=== PATIENT | male | born 1945 | race Caucasian/White ===

== ENCOUNTER 2020-06-20 09:27 | Outpatient (REF) | payer MEDICARE, MEDICAID, SELFPAY ==
--- NOTE | 2020-06-20 09:34 | XR_ITS ---
EXAMINATION: XR SHOULDER, RIGHT CLINICAL INFORMATION: Pain right shoulder. COMPARISON: None TECHNIQUE: 3 views of the right shoulder. FINDINGS: There is loss of joint space within the head of humerus and the acromion with lateral acromial spurring. Also visualized is calcification seen superior to the head of humerus likely calcific tendinitis. There is no visible acute fracture, dislocation or subluxation seen. There is mild spurring along the head of the humerus. No visible acute fracture, dislocation or lytic process seen. XR/XR shoulder RT min 2V IMPRESSION: Mild degenerative arthritic changes right shoulder. Suspect calcific tendinitis. Moderate lateral acromial in superior humeral spurring likely resulting in impingement and partial tear of rotator cuff.
== END 2020-06-20 09:28 | disposition home or self-care (01) ==
LOC: HO.XRAY 09:27
PROVIDERS: PCP Family Medicine; Referring Provider Family Medicine; Visit Provider Orthopaedic Surgery
DX: M25.511 Pain in right shoulder (principal); M75.101 Unspecified rotator cuff tear or rupture of right shoulder, not specified as traumatic; M12.811 Other specific arthropathies, not elsewhere classified, right shoulder
CPT/HCPCS: 20610; 73030; 99204; 99212; J1040

== ENCOUNTER → 2020-09-19 10:40 | Outpatient (BNVA) | payer MEDICARE, MEDICAID, SELFPAY | PROVIDERS: PCP Family Medicine; Visit Provider Orthopaedic Surgery | DX: M75.101 Unspecified rotator cuff tear or rupture of right shoulder, not specified as traumatic (principal); M12.811 Other specific arthropathies, not elsewhere classified, right shoulder | CPT/HCPCS: 20610; 99212; J1040 ==

== ENCOUNTER 2020-11-08 12:52 | Outpatient (REF) | payer MEDICARE, MEDICAID, SELFPAY ==
[2020-11-08 14:06] LABS: MANUAL DIFF FLAG NO
[2020-11-08 14:11] LABS: Basophils Absolute Auto 0.1 X10*3/uL (0.0-0.2); Basophils Percent Auto 0.9 % (0-2); Eosinophils Absolute Auto 0.2 X10*3/uL (0.0-0.4); Eosinophils Percent Auto 3.1 % (0-4); Hematocrit 34.7 % (42-52); Hemoglobin 11.3 g/dl (14.0-18.0); Imm Gran Abs Auto 0.03 X10*3/uL (0.00-0.03); Imm Gran Pct Auto 0.4 % (0.0-0.4); Lymphocytes Absolute Auto 1.1 X10*3/uL (1.2-4.9); Mean Corpuscular HGB Conc 32.6 g/dl (31.0-36.0); Mean Corpuscular Hemoglobin 35.1 pg (27.0-33.0); Mean Corpuscular Volume 107.8 fL (80-98); Mean Platelet Volume 10.9 fL (9.4-12.4); Monocytes Absolute Auto 0.5 X10*3/uL (0.1-1.2); Monocytes Percent Auto 6.7 % (2-11); Neutrophils Absolute Auto 4.9 X10*3/uL (2.0-8.3); Neutrophils Percent Auto 72.9 % (45-73); Platelet Count 211 X10*3/uL (160-400); Red Blood Count 3.22 X10*6/uL (4.60-5.80); Red Cell Distribution Width 15.6 % (11.0-16.0); White Blood Count 6.7 X10*3/uL (4.8-10.8)
[2020-11-08 14:32] LABS: Alanine Aminotransferase 19 U/L (0-40); Anion Gap 13 (12-20); Blood Urea Nitrogen 22 mg/dL (9-16); Carbon Dioxide 33 mmol/L (22-29); Chloride 99 mmol/L (96-108); Estimated Glomerular Filt Rate 53; Potassium 4.9 mmol/L (3.3-5.1); Sodium 140 mmol/L (135-145)
== END 2020-11-08 12:53 | disposition home or self-care (01) ==
LOC: HO.10HDL 12:52
PROVIDERS: Absent Provider Internal Medicine Medical Oncology; Visit Provider Student in an Organized Health Care Education/Training Program
DX: D64.9 Anemia, unspecified (principal); I10 Essential (primary) hypertension; E78.00 Pure hypercholesterolemia, unspecified; Z79.899 Other long term (current) drug therapy
CPT/HCPCS: 20610; 36415; 80051; 82550; 82565; 84460; 84520; 85025; J1040; Q3014

== ENCOUNTER 2021-06-20 10:03 | Outpatient (REF) | payer MEDICARE, OTHER, SELFPAY ==
[2021-06-20 13:57] LABS: MANUAL DIFF FLAG NO
[2021-06-20 14:19] LABS: Basophils Absolute Auto 0.1 X10*3/uL (0.0-0.2); Basophils Percent Auto 0.8 % (0-2); Eosinophils Percent Auto 0.7 % (0-4); Hemoglobin 11.1 g/dl (14.0-18.0); Imm Gran Abs Auto 0.05 X10*3/uL (0.00-0.03); Imm Gran Pct Auto 0.8 % (0.0-0.4); Lymphocytes Absolute Auto 0.8 X10*3/uL (1.2-4.9); Lymphocytes Percent Auto 13.2 % (20-40); Mean Corpuscular HGB Conc 32.6 g/dl (31.0-36.0); Mean Corpuscular Hemoglobin 34.9 pg (27.0-33.0); Mean Corpuscular Volume 106.9 fL (80-98); Mean Platelet Volume 11.4 fL (9.4-12.4); Monocytes Absolute Auto 0.3 X10*3/uL (0.1-1.2); Monocytes Percent Auto 5.3 % (2-11); Neutrophils Absolute Auto 4.8 X10*3/uL (2.0-8.3); Neutrophils Percent Auto 79.2 % (45-73); Platelet Count 203 X10*3/uL (160-400); Red Blood Count 3.18 X10*6/uL (4.60-5.80); Red Cell Distribution Width 15.9 % (11.0-16.0); White Blood Count 6.1 X10*3/uL (4.8-10.8)
[2021-06-20 14:28] LABS: Alanine Aminotransferase 20 U/L (0-40); Anion Gap 13 (12-20); Aspartate Amino Transferase 19 U/L (5-37); Blood Urea Nitrogen 13 mg/dL (9-16); Carbon Dioxide 29 mmol/L (22-29); Chloride 104 mmol/L (96-108); Estimated Glomerular Filt Rate > 60; Potassium 4.6 mmol/L (3.3-5.1); Sodium 141 mmol/L (135-145)
[2021-06-20 14:48] LABS: Prostate Specific Antigen Scr 0.78 ng/mL (<0.05-4.0)
== END 2021-06-20 10:04 | disposition home or self-care (01) ==
LOC: HO.10HDL 10:03
PROVIDERS: Absent Provider Internal Medicine Medical Oncology; Visit Provider Family Medicine
DX: Z12.5 Encounter for screening for malignant neoplasm of prostate (principal); E78.00 Pure hypercholesterolemia, unspecified; D64.9 Anemia, unspecified; R35.1 Nocturia; Z79.899 Other long term (current) drug therapy
CPT/HCPCS: 36415; 80051; 82550; 82565; 84153; 84450; 84460; 84520; 85025

== ENCOUNTER → 2021-08-28 10:11 | Outpatient (BNVA) | payer MEDICARE, OTHER, SELFPAY | PROVIDERS: PCP Family Medicine; Visit Provider Internal Medicine Pulmonary Disease | DX: J44.9 Chronic obstructive pulmonary disease, unspecified (principal); R91.8 Other nonspecific abnormal finding of lung field; Z99.81 Dependence on supplemental oxygen | CPT/HCPCS: 99212 ==

== ENCOUNTER 2021-09-18 09:59 | Outpatient (REF) | payer MEDICARE, OTHER, SELFPAY ==
--- NOTE | ~2021-09-18 | CT_ITS ---
EXAMINATION: CT CHEST WITHOUT CONTRAST CLINICAL INFORMATION: Other nonspecific abnormal finding of lung field. COMPARISON: Previous CT January 2018 and previous chest x-ray June 2019. TECHNIQUE: Multidetector volumetric CT imaging of the chest was done. Axial MIP volume rendering provided. Sagittal and coronal reformatted images were obtained. This CT examination was performed using dose optimization techniques as appropriate, variously including the following: *Automated exposure control. *Adjustment of mA and/or kV according to patient size (this includes techniques or standardized protocols for targeted exams where dose is matched to indication/reason for exam; i.e. extremities or head). *Use of iterative reconstruction technique. DLP: 174 mGy-cm FINDINGS: LUNGS: There is evidence of emphysema. There is bilateral lower lobe bronchiectasis. This is increased from previous exam. There are patchy areas of airways disease with bronchial wall thickening, increased peribronchial attenuation and peribronchial nodules or tree-in-bud appearance. This is greatest in the bilateral lower lobes. This appears increased from previous exam. There is also increasing bilateral lower lobe bronchiectasis. MEDIASTINUM: There are small mediastinal lymph nodes. No enlarged lymph nodes are seen. The heart does not appear enlarged. There is coronary artery calcification. No pericardial effusion. The thoracic aorta is normal in caliber. The visualized thyroid gland is normal. PLEURA: There is no pleural effusion. No pleural mass or thickening. AXILLA: No lymphadenopathy. UPPER ABDOMEN: Unremarkable. OSSEOUS STRUCTURES: There are degenerative changes of the spine. CT/CT chest wo con IMPRESSION: 1. Emphysema. 2. Increasing bronchiectasis and airways disease, greatest in the lower lobes. Coronary artery calcification. Fleischner guidelines were followed.
== END 2021-09-18 10:00 | disposition home or self-care (01) ==
LOC: HO.CT 09:59
PROVIDERS: PCP Family Medicine; Visit Provider Internal Medicine Pulmonary Disease
DX: R91.8 Other nonspecific abnormal finding of lung field (principal)
CPT/HCPCS: 71250

== ENCOUNTER 2021-10-04 10:00 | Outpatient (REF) | payer MEDICARE, OTHER, SELFPAY ==
--- NOTE | 2021-10-04 11:39 | PFT_ITS ---
FLOWS: FEV1 56% of predicted at 1.88 L. FVC 81% of predicted at 3.76 L. FEV1 to FVC ratio of 0.50. No bronchodilator testing was performed as patient has used albuterol approximately 2 hours prior to testing. LUNG VOLUMES: Total lung capacity 97% of predicted at 7.25 L. Residual volume 126% of predicted at 3.35 L. Slow vital capacity 81% of predicted at 3.90 L. Expiratory reserve volume 83% of predicted at 1.14 L. Diffusion capacity is moderately decreased. IMPRESSION: Moderate obstructive ventilatory defect. Bronchodilator testing was not performed. Increased residual volume suggests air trapping. Decreased diffusion capacity suggests emphysema. Miguel Majano MD AP/MODL / [id number]
== END 2021-10-04 10:01 | disposition home or self-care (01) ==
LOC: HO.RESP 10:00
PROVIDERS: PCP Family Medicine; Visit Provider Internal Medicine Pulmonary Disease
DX: J44.9 Chronic obstructive pulmonary disease, unspecified (principal)
CPT/HCPCS: 94010; 94727; 94729

== ENCOUNTER → 2021-11-01 10:07 | Outpatient (BNVA) | payer MEDICARE, OTHER, SELFPAY | PROVIDERS: PCP Family Medicine; Visit Provider Internal Medicine Pulmonary Disease | DX: J44.9 Chronic obstructive pulmonary disease, unspecified (principal); R91.8 Other nonspecific abnormal finding of lung field; Z99.81 Dependence on supplemental oxygen | CPT/HCPCS: 99212 ==

== ENCOUNTER → 2021-12-07 09:22 | Outpatient (BNVA) | payer MEDICARE, OTHER, SELFPAY | PROVIDERS: PCP Family Medicine; Visit Provider Orthopaedic Surgery | DX: M19.012 Primary osteoarthritis, left shoulder (principal); M19.011 Primary osteoarthritis, right shoulder | CPT/HCPCS: 20610; 99212; J1100 ==

== ENCOUNTER 2021-12-26 11:02 | Outpatient (REF) | payer MEDICARE, OTHER, SELFPAY ==
[2021-12-26 14:01] LABS: Alanine Aminotransferase 26 U/L (0-40); Anion Gap 13 (12-20); Aspartate Amino Transferase 21 U/L (5-37); Blood Urea Nitrogen 17 mg/dL (9-16); Carbon Dioxide 27 mmol/L (22-29); Chloride 102 mmol/L (96-108); Estimated Glomerular Filt Rate 58; Potassium 4.4 mmol/L (3.3-5.1); Sodium 138 mmol/L (135-145)
== END 2021-12-26 11:03 | disposition home or self-care (01) ==
LOC: HO.HMGCLDS 11:02
PROVIDERS: PCP Family Medicine; Visit Provider Family Medicine
DX: I10 Essential (primary) hypertension (principal); K75.81 Nonalcoholic steatohepatitis (NASH)
CPT/HCPCS: 36415; 80051; 82565; 84450; 84460; 84520

== ENCOUNTER 2022-01-02 08:31 | Outpatient (REF) | payer MEDICARE, OTHER, SELFPAY ==
--- NOTE | ~2022-01-02 | XR_ITS ---
EXAMINATION: XR HAND, LEFT CLINICAL INFORMATION: Pain COMPARISON: None TECHNIQUE: PA, lateral, and oblique views of the left hand. FINDINGS: Degenerative osteoarthritic changes involving primarily first carpometacarpal joint, also involving the first interphalangeal joint, proximal and distal interphalangeal joints of all fingers relatively sparing the metacarpophalangeal joints. No evidence of erosions. XR/XR hand LT min 3V IMPRESSION: Early advanced degenerative osteoarthritis primarily involving the first carpometacarpal.
== END 2022-01-02 08:32 | disposition home or self-care (01) ==
LOC: HO.HOSX 08:31
PROVIDERS: Visit Provider Orthopaedic Surgery
DX: M18.12 Unilateral primary osteoarthritis of first carpometacarpal joint, left hand (principal)
CPT/HCPCS: 20605; 73130; 99202; J1020

== ENCOUNTER → 2022-01-15 12:56 | Outpatient (REF) | payer MEDICARE, OTHER, SELFPAY ==
--- NOTE | 2022-01-15 13:00 | CA_ITS ---
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 The calculated ejection fraction is 58% by biplane method. - Moderately increased right ventricular cavity size. - At most mild aortic stenosis. - Mild pulmonary hypertension is present. Findings Left Ventricle Normal left ventricular cavity size. There is normal left ventricular wall thickness. The left ventricular systolic function is normal. The calculated ejection fraction is 58% by biplane method. There is no evidence of regional wall motion abnormalities. Diastolic function is normal for age. Right Ventricle Moderately increased right ventricular cavity size. There is normal right ventricular systolic function. Atria Both atria are normal in size. Aortic Valve The aortic valve was not well visualized. There is mild calcification of the aortic valve. The mean gradient is 9 mmHg. The aortic valve area is 1.91 cm2. There is no aortic valve regurgitation. At most mild aortic stenosis. Mitral Valve The mitral valve appears normal. There is trace mitral valve regurgitation. There is no mitral valve stenosis. Pulmonic Valve The pulmonic valve was not well visualized. Tricuspid Valve There is trace tricuspid valve regurgitation. The right ventricular systolic pressure is 36 mmHg. Mild pulmonary hypertension is present. Great Vessels The aorta was not well visualized. The sinuses of valsalva is normal in size. Small plaque is seen in the sino tubular ridge. Venous The inferior vena cava is mildly dilated and collapses greater than 50% with inspiration. Pericardium/Pleural There is no evidence of pericardial effusion. Prior Study Comparison Changes noted compared to prior study dated: 06/21/2015. Slight increase in aortic valve gradients. Increased right ventricular size. Mild pulmonary hypertension now seen. Measurements 2D Linear Measurements IVSd: 0.98 0.6-0.9/0.6-1.0 cm LVIDd: 5.84 3.9-5.3/4.2-5.9 cm LVIDd Index: 2.65 2.4-3.2/2.2-3.1 cm/m2 LVIDs: 4.60 2.0-3.6 cm LVPWd: 0.96 0.7-1.1 cm LA Diam: 3.80 2.7-3.8/3.0-4.0 cm LAIDs Index: 1.73 1.5-2.3 cm/m2 LV Mass: 282.41 67-162/88-224 g LV Mass Index: 128.37 43-95/49-115 g/m2 LVOT Diam: 2.00 3.0+(-)1.3 cm 2D Systolic Function EF 4C: 58.70 >55% EF 2C: 58.00 >55% EF BiP: 57.90 >55% Mitral Valve MV Pk E: 0.69 MV PK A: 0.66 MV Decel Time: 165.00 E/A: 1.00 E'Lateral: 12.80 E'Medial: 10.10 E/E' Med: 6.80 E/E' Lat: 5.40 PHT: 48.00 MVA PHT: 4.58 Decel [place]: 4.15 Aortic Valve AoV Pk [place]: 2.07 AoV Mn [place]: 1.38 AoV VTI: 0.37 AoV Pk Grad: 17.00 Aov Mn Grad: 9.00 ALAN Cont.VTI: 1.91 LVOT LVOT Pk [place]: 1.17 LVOT Mn [place]: 0.70 LVOT VTI: 0.23 LVOT Pk Grad: 5.00 LVOT Mn Grad: 2.00 LVOT Diam: 2.00 LVOT Area: 3.14 Diastolic Function MV Pk E: 0.69 MV Pk A: 0.66 E/A: 1.00 E'Medial: 10.10 E/E' Med: 6.80 E' Laterial: 12.80 E/E' Lat: 5.40 Right Ventricle TAPSE (mm): 21.90 TVS' [place]: 16.50 Tricuspid Valve TR Pk [place]: 2.64 TR Pk Grad: 28.00 RA Press: 8.00 RVSP: 36.00 Great Vessels Aorta Sinus of Valsalva: 3.73 2.0-3.[address] [place]: 2.54 1.7-3.4 cm Pulmonary Valve PV Pk [place]: 1.07 Peak PV Grad: 5.00 Updated in Other Vendor System with Status of Final Ishmael Karimi MD electronically signed on 01/15/2022 5:29:57 PM with status of Final
== END ==
LOC: HO.CARD 12:56
PROVIDERS: PCP Family Medicine; Visit Provider Internal Medicine Pulmonary Disease
DX: Z76.82 Awaiting organ transplant status (principal)
CPT/HCPCS: 93306

== ENCOUNTER → 2022-01-29 09:57 | Outpatient (BNVA) | payer MEDICARE, OTHER, SELFPAY | PROVIDERS: PCP Family Medicine; Visit Provider Internal Medicine Pulmonary Disease | DX: J44.9 Chronic obstructive pulmonary disease, unspecified (principal); Z99.81 Dependence on supplemental oxygen | CPT/HCPCS: 99212 ==

== ENCOUNTER 2022-03-04 08:42 | Outpatient (REF) | payer MEDICARE, SELFPAY ==
[2022-03-04 11:16] LABS: MANUAL DIFF FLAG NO
[2022-03-04 11:26] LABS: Basophils Absolute Auto 0.1 X10*3/uL (0.0-0.2); Basophils Percent Auto 0.7 % (0-2); Eosinophils Absolute Auto 0.2 X10*3/uL (0.0-0.4); Eosinophils Percent Auto 2.1 % (0-4); Hematocrit 32.8 % (42.0-52.0); Hemoglobin 10.8 g/dl (14.0-18.0); Imm Gran Abs Auto 0.04 X10*3/uL (0.00-0.03); Imm Gran Pct Auto 0.5 % (0.0-0.4); Immature Retic Fraction 17.2 % (2.3-13.4); Lymphocytes Absolute Auto 1.1 X10*3/uL (1.2-4.9); Lymphocytes Percent Auto 13.1 % (20-40); Mean Corpuscular HGB Conc 32.9 g/dl (31.0-36.0); Mean Corpuscular Hemoglobin 36.1 pg (27.0-33.0); Mean Corpuscular Volume 109.7 fL (80.0-98.0); Monocytes Absolute Auto 0.5 X10*3/uL (0.1-1.2); Neutrophils Absolute Auto 6.6 x10*3/uL (2.0-8.3); Neutrophils Percent Auto 77.6 % (45-73); Platelet Count 161 X10*3/uL (160-400); Red Blood Count 2.99 X10*6/uL (4.60-5.80); Red Cell Distribution Width 16.2 % (11.0-16.0); Retic HGB Equivalent 37.6 pg (30.0-35.0); Reticulocyte Percent 1.1 % (0.5-1.8); Reticulocytes Absolute 0.032 X10*6/uL (0.026-0.095); White Blood Count 8.5 X10*3/uL (4.8-10.8)
[2022-03-04 12:07] LABS: Alanine Aminotransferase 28 U/L (0-40); Albumin Level 4.2 g/dL (3.5-5.0); Alkaline Phosphatase 59 U/L (39-117); Anion Gap 12 (12-20); Aspartate Amino Transferase 25 U/L (5-37); Bilirubin Total 0.3 mg/dL (0.0-1.0); Blood Urea Nitrogen 16 mg/dL (9-16); Calcium 9.3 mg/dL (8.4-10.2); Carbon Dioxide 29 mmol/L (22-29); Chloride 103 mmol/L (96-108); Estimated Glomerular Filt Rate > 60; Glucose Random 123 mg/dL (60-115); Potassium 4.4 mmol/L (3.3-5.1); Sodium 140 mmol/L (135-145); Total Protein 6.8 g/dL (6.5-8.0)
== END 2022-03-04 08:43 | disposition home or self-care (01) ==
LOC: HO.HMGCLDS 08:42
PROVIDERS: PCP Family Medicine; Visit Provider Internal Medicine Medical Oncology
DX: D46.9 Myelodysplastic syndrome, unspecified (principal)
CPT/HCPCS: 36415; 80053; 85025; 85045

== ENCOUNTER → 2022-05-07 09:58 | Outpatient (BNVA) | payer MEDICARE, OTHER, SELFPAY | PROVIDERS: PCP Family Medicine; Visit Provider Internal Medicine Pulmonary Disease | DX: J47.9 Bronchiectasis, uncomplicated (principal); Z76.82 Awaiting organ transplant status; Z99.81 Dependence on supplemental oxygen | CPT/HCPCS: 99212 ==

== ENCOUNTER 2022-06-19 11:37 | Outpatient (REF) | payer MEDICARE, MEDICAID, SELFPAY ==
[2022-06-19 14:26] LABS: Amphetamine Screen Urine Not Detected (Not Detect); Barbiturates, Urine Not Detected (Not Detect); Benzodiazepines Screen Urine Not Detected (Not Detect); Cannabinoid Screen Urine Not Detected (Not Detect); Cocaine Screen Urine POSITIVE (Not Detect); Fentanyl, urine POSITIVE (Not Detect); Opiate Screen Urine Not Detected (Not Detect); Phencyclidine Screen Urine Not Detected (Not Detect)
== END 2022-06-19 11:38 | disposition home or self-care (01) ==
LOC: HO.LAB 11:37
PROVIDERS: PCP Family Medicine; Visit Provider Family Medicine
DX: Z79.899 Other long term (current) drug therapy (principal)
CPT/HCPCS: 80307

== ENCOUNTER → 2022-06-24 10:27 | Outpatient (BNVA) | payer MEDICARE, MEDICAID, SELFPAY | PROVIDERS: PCP Family Medicine; Visit Provider Orthopaedic Surgery | DX: M19.011 Primary osteoarthritis, right shoulder (principal); M19.012 Primary osteoarthritis, left shoulder | CPT/HCPCS: 20610; 99212; J1100 ==

== ENCOUNTER → 2022-07-01 09:59 | Outpatient (BNVA) | payer MEDICARE, MEDICAID, SELFPAY | PROVIDERS: PCP Family Medicine; Visit Provider Nurse Practitioner Psychiatric/Mental Health | DX: Z79.891 Long term (current) use of opiate analgesic (principal) | CPT/HCPCS: 99202; 99212 ==

== ENCOUNTER 2022-07-25 08:26 | Outpatient (REF) | payer MEDICARE, MEDICAID, SELFPAY ==
[2022-07-25 08:55] LABS: COVID-19 Test Negative (Negative); IDNOW Serial# 16C4AD1C
== END 2022-07-25 08:27 | disposition home or self-care (01) ==
LOC: HO.LAB 08:26
PROVIDERS: Visit Provider Internal Medicine
DX: Z20.822 Contact with and (suspected) exposure to COVID-19 (principal)
CPT/HCPCS: 87635; C9803

== ENCOUNTER 2022-07-26 11:27 | Outpatient (REF) | payer MEDICARE, OTHER, SELFPAY ==
--- NOTE | ~2022-07-26 | XR_ITS ---
EXAMINATION: XR CHEST CLINICAL INFORMATION: Cough and wheezing. COPD. COMPARISON: [facility] chest x-ray most recent June 2019 and chest x-ray August 2021 TECHNIQUE: 2 views of the chest were obtained. FINDINGS: The cardiac and mediastinal contours are stable. The lungs are well inflated. There are increased markings at the right lung base questionable for small infiltrate or bronchial wall thickening in the right lower lobe. No definite corresponding abnormalities appreciated on the lateral view. The lungs are otherwise clear. There is no pleural effusion or pneumothorax. There are degenerative changes of the spine. XR/XR chest 2V IMPRESSION: Well-inflated lungs. Increased markings at the right lung base questionable for small infiltrate or bronchial wall thickening in the right lower lobe.
== END 2022-07-26 11:28 | disposition home or self-care (01) ==
LOC: HO.XRAY 11:27
PROVIDERS: PCP Family Medicine; Visit Provider Family Medicine
DX: J44.9 Chronic obstructive pulmonary disease, unspecified (principal); R06.2 Wheezing; R05.9 Cough, unspecified
CPT/HCPCS: 71046

== ENCOUNTER → 2022-08-06 08:56 | Outpatient (BNVA) | payer MEDICARE, MEDICAID, SELFPAY | PROVIDERS: PCP Family Medicine; Visit Provider Orthopaedic Surgery | DX: M18.12 Unilateral primary osteoarthritis of first carpometacarpal joint, left hand (principal) | CPT/HCPCS: 20600; 99212; J1020 ==

== ENCOUNTER 2022-08-30 09:39 | Outpatient (REF) | payer MEDICARE, MEDICAID, SELFPAY ==
[2022-08-30 11:26] LABS: MANUAL DIFF FLAG NO
[2022-08-30 11:28] LABS: Basophils Absolute Auto 0.1 X10*3/uL (0.0-0.2); Eosinophils Absolute Auto 0.1 X10*3/uL (0.0-0.4); Eosinophils Percent Auto 1.4 % (0-4); Hematocrit 31.5 % (42.0-52.0); Hemoglobin 10.5 g/dl (14.0-18.0); Imm Gran Abs Auto 0.05 X10*3/uL (0.00-0.03); Imm Gran Pct Auto 0.6 % (0.0-0.4); Lymphocytes Absolute Auto 1.2 X10*3/uL (1.2-4.9); Lymphocytes Percent Auto 14.8 % (20-40); Mean Corpuscular HGB Conc 33.3 g/dl (31.0-36.0); Mean Corpuscular Hemoglobin 35.4 pg (27.0-33.0); Mean Corpuscular Volume 106.1 fL (80.0-98.0); Mean Platelet Volume 11.6 fL (9.4-12.4); Monocytes Absolute Auto 0.4 X10*3/uL (0.1-1.2); Monocytes Percent Auto 5.5 % (2-11); Neutrophils Absolute Auto 6.2 x10*3/uL (2.0-8.3); Neutrophils Percent Auto 76.7 % (45-73); Platelet Count 203 X10*3/uL (160-400); Red Blood Count 2.97 X10*6/uL (4.60-5.80)
[2022-08-30 12:11] LABS: Alanine Aminotransferase 18 U/L (0-40); Albumin Level 4.3 g/dL (3.5-5.0); Alkaline Phosphatase 67 U/L (39-117); Anion Gap 12 (12-20); Aspartate Amino Transferase 20 U/L (5-37); Bilirubin Total 0.6 mg/dL (0.0-1.0); Blood Urea Nitrogen 17 mg/dL (9-16); Calcium 9.6 mg/dL (8.4-10.2); Carbon Dioxide 29 mmol/L (22-29); Chloride 103 mmol/L (96-108); Estimated Glomerular Filt Rate > 60; Glucose Random 116 mg/dL (60-115); Potassium 4.4 mmol/L (3.3-5.1); Sodium 140 mmol/L (135-145); Total Protein 6.9 g/dL (6.5-8.0)
[2022-08-30 12:29] LABS: Folate 13.6 ng/mL (> or = 4.0); Vitamin B12 > 2000 pg/mL (200-900)
== END 2022-08-30 09:40 | disposition home or self-care (01) ==
LOC: HO.HMGCLDS 09:39
PROVIDERS: PCP Internal Medicine Medical Oncology; Visit Provider Internal Medicine Medical Oncology
DX: M15.9 Polyosteoarthritis, unspecified (principal); N18.2 Chronic kidney disease, stage 2 (mild); D64.9 Anemia, unspecified
CPT/HCPCS: 36415; 80053; 82607; 82746; 85025

== ENCOUNTER → 2022-09-23 12:25 | Outpatient (BNVA) | payer MEDICARE, MEDICAID, SELFPAY | PROVIDERS: PCP Internal Medicine Medical Oncology; Visit Provider Orthopaedic Surgery | DX: M19.011 Primary osteoarthritis, right shoulder (principal); M19.012 Primary osteoarthritis, left shoulder | CPT/HCPCS: 20610; 99212; J1100 ==

== ENCOUNTER → 2022-12-23 09:22 | Outpatient (BNVA) | payer MEDICARE, MEDICAID, SELFPAY | PROVIDERS: PCP Family Medicine; Visit Provider Orthopaedic Surgery | DX: M19.011 Primary osteoarthritis, right shoulder (principal); M19.012 Primary osteoarthritis, left shoulder; M75.41 Impingement syndrome of right shoulder | CPT/HCPCS: 20610; 99212; J1100 ==

== ENCOUNTER 2023-01-03 13:51 | Outpatient (REF) | payer MEDICARE, MEDICAID, SELFPAY ==
[2023-01-03 16:40] LABS: MANUAL DIFF FLAG NO
[2023-01-03 16:46] LABS: Basophils Absolute Auto 0.1 X10*3/uL (0.0-0.2); Basophils Percent Auto 1.3 % (0-2); Eosinophils Absolute Auto 0.2 X10*3/uL (0.0-0.4); Hematocrit 30.9 % (42.0-52.0); Hemoglobin 10.4 g/dl (14.0-18.0); Imm Gran Abs Auto 0.03 X10*3/uL (0.00-0.03); Imm Gran Pct Auto 0.5 % (0.0-0.4); Immature Retic Fraction 18.9 % (2.3-13.4); Lymphocytes Absolute Auto 1.2 X10*3/uL (1.2-4.9); Lymphocytes Percent Auto 19.1 % (20-40); Mean Corpuscular HGB Conc 33.7 g/dl (31.0-36.0); Mean Corpuscular Hemoglobin 37.4 pg (27.0-33.0); Mean Platelet Volume 11.4 fL (9.4-12.4); Monocytes Absolute Auto 0.5 X10*3/uL (0.1-1.2); Monocytes Percent Auto 7.7 % (2-11); NRBC Pct Auto 0.3 /100WBC (0.0-0.2); Neutrophils Absolute Auto 4.3 x10*3/uL (2.0-8.3); Neutrophils Percent Auto 68.4 % (45-73); Platelet Count 186 X10*3/uL (160-400); Red Blood Count 2.78 X10*6/uL (4.60-5.80); Red Cell Distribution Width 15.9 % (11.0-16.0); Retic HGB Equivalent 38.4 pg (30.0-35.0); Reticulocyte Percent 0.9 % (0.5-1.8); Reticulocytes Absolute 0.024 X10*6/uL (0.026-0.095); White Blood Count 6.2 X10*3/uL (4.8-10.8)
[2023-01-03 16:59] LABS: Alanine Aminotransferase 28 U/L (0-40); Albumin Level 4.1 g/dL (3.5-5.0); Alkaline Phosphatase 58 U/L (39-117); Anion Gap 11 (12-20); Aspartate Amino Transferase 27 U/L (5-37); Bilirubin Total 0.8 mg/dL (0.0-1.0); Blood Urea Nitrogen 17 mg/dL (9-16); Calcium 8.9 mg/dL (8.4-10.2); Carbon Dioxide 29 mmol/L (22-29); Chloride 104 mmol/L (96-108); Estimated Glomerular Filt Rate > 60; Glucose Random 123 mg/dL (60-115); Potassium 4.6 mmol/L (3.3-5.1); Sodium 139 mmol/L (135-145); Total Protein 6.6 g/dL (6.5-8.0)
[2023-01-03 17:03] LABS: Mean Corpuscular Volume 111.2 fL (80.0-98.0)
== END 2023-01-03 13:52 | disposition home or self-care (01) ==
LOC: HO.HMGCLDS 13:51
PROVIDERS: PCP Internal Medicine Medical Oncology; Visit Provider Internal Medicine Medical Oncology
DX: N18.2 Chronic kidney disease, stage 2 (mild) (principal)
CPT/HCPCS: 36415; 80053; 85025; 85045

== ENCOUNTER → 2023-02-19 10:00 | Outpatient (BNVA) | payer MEDICARE, MEDICAID, SELFPAY | PROVIDERS: PCP Family Medicine; Visit Provider Internal Medicine Pulmonary Disease | DX: J47.9 Bronchiectasis, uncomplicated (principal); Z99.81 Dependence on supplemental oxygen | CPT/HCPCS: 99212 ==

== ENCOUNTER 2023-03-20 10:38 | Outpatient (REF) | payer MEDICARE, MEDICAID, SELFPAY ==
[2023-03-21 03:39] LABS: Theophylline 11.7 MG/L ((10-20))
== END 2023-03-20 10:39 | disposition home or self-care (01) ==
LOC: HO.10HDL 10:38
PROVIDERS: Visit Provider Family Medicine
DX: J44.9 Chronic obstructive pulmonary disease, unspecified (principal); Z79.899 Other long term (current) drug therapy
CPT/HCPCS: 36415; 80198

== ENCOUNTER 2023-03-27 09:15 | Outpatient (AMB) | payer MEDICARE, MEDICAID, SELFPAY ==
[2023-03-27 09:21] VITALS: BMI 26.9
--- NOTE | 2023-03-27 09:21 | MHC.OFFVIS ---
Intake Vital Signs 03/27/23 09:21 Height 6 ft Weight 198 lb BMI 26.9 Intake Visit Reasons: OV - Right Shoulder Injection - Last 12/23/22 Intake Note: Jordy is a 77 year old right hand dominant male who presents today for a follow up of his bilateral shoulder OA. Last injections done bilaterally 09/23/22. Patient reports that the injections continue to provide good relief and he would like to repeat injections today. He does explain that over the last few weeks he has felt a burning pain in the right shoulder and pain in the elbow with overhead reaching. Allergies No Known Allergies Allergy (Mild, Verified 03/27/23 11:43) NONE HPI OV - Right Shoulder Injection - Last 12/23/22 HPI Details Jordy is a 77 year old man with bilateral shoulder OA. He has a Hx of relief from steroid injections, was last injected on 12/23/22, and would like repeat injections today. 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 Site was prepped using aseptic technique. Patient tolerated the procedure well. Primary Site: right shoulder Approach Used: posterolateral Coding 70095 - Glenohumeral/Tronchanteric Bursa/Intraarticular Procedure code (CPT) selection complete Results Reviewed Results Reviewed: 03/27/23 09:15 BUPivacaine MPF 0.25 % [Sensorcaine-MPF 0.25% 10 ML] 10 ml .ROUTE .STK-MED ONE Lidocaine HCl 2 % MPF [Xylocaine 2 % MPF] 5 ml .ROUTE .STK-MED ONE dexAMETHasone sod phosphate [Decadron] 4 mg .ROUTE .STK-MED ONE Assessment & Plan Assessment & Plan (1) Rotator cuff tear arthropathy of right shoulder: Code(s): M75.101 - Unspecified rotator cuff tear or rupture of right shoulder, not specified as traumatic; M12.811 - Other specific arthropathies, not elsewhere classified, right shoulder Plan: This is a 77 year old man with right RTC arthropathy with a history of good relief from steroid injections. His last injection was 12/23/22. He has some increased pain and limited ROM in his right shoulder. I recommend he limit overhead or painful activity where possible. I injected his right shoulder today, which he tolerated well. He can follow up prn. Plan Scribed for Chauncey Martinez MD by [place], medical coding auditor, on 03/27/23 at 9:35 AM, EST. Coding Level of Care Code Est Pt Level 3 (96824) Diagnoses Rotator cuff tear arthropathy of right shoulder M75.101; M12.811 CPT Codes Coding - Joint 7: 86820 - Glenohumeral/Tronchanteric Bursa/Intraarticular ([id number])
== END 2023-03-27 09:48 | disposition home or self-care (01) ==
PROVIDERS: Visit Provider Orthopaedic Surgery
DX: M75.101 Unspecified rotator cuff tear or rupture of right shoulder, not specified as traumatic (principal); M12.811 Other specific arthropathies, not elsewhere classified, right shoulder
CPT/HCPCS: 20610; 99213

== ENCOUNTER → 2023-03-27 09:15 | Outpatient (BNVA) | payer MEDICARE, MEDICAID, SELFPAY | PROVIDERS: Visit Provider Orthopaedic Surgery | DX: L98.9 Disorder of the skin and subcutaneous tissue, unspecified (principal); M75.101 Unspecified rotator cuff tear or rupture of right shoulder, not specified as traumatic; M12.811 Other specific arthropathies, not elsewhere classified, right shoulder | CPT/HCPCS: 20610; 99202; 99212; J1100 ==

== ENCOUNTER 2023-03-27 11:32 | Outpatient (AMB) | payer MEDICARE, MEDICAID, SELFPAY ==
[2023-03-27 11:35] VITALS: BP 137/63; PULSE 84; BMI 26.9
--- NOTE | 2023-03-27 11:35 | A.OFFVIS_ITS ---
Intake Vital Signs 03/27/23 11:35 Height 6 ft Weight 198 lb BMI 26.9 BP 137/63 Blood Pressure Location Rt brachial Position Sitting Pulse 84 Intake Visit Reasons: skin lesions x2 Intake Note: This patient presents for an assessment for x2 skin lesions. Patient c/o; multiple skin lesions, reports sores behind both ears and on both arms, reports lesions not healing . 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 He says that he had noticed this about 6 months ago. He denies any bleeding or any discharge. He says that these pains tend to itch a lot. He therefore wants these removed. 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 /[employer] Review of Systems Const Denies chills and Denies fever(s) Card Denies chest pain, Denies dyspnea and Reports dyspnea on exertion Resp Denies cough, Denies dyspnea and Reports dyspnea on exertion GI Denies hematochezia and Denies change in bowel habits Denies hematuria and Denies difficulty urinating Musc Denies back pain and Denies limited range of motion Neuro Denies focal weakness and Denies convulsions Psych Denies depression and Denies mood swings Physical Exam Vital Signs: Last Vital Signs Pulse 84 03/27/23 11:35 BP 137/63 03/27/23 11:35 BMI result Body Mass Index 26.9 Const General: comfortable and no acute distress Orientation/consciousness: patient oriented x3 Neck Neck: Yes no lymphadenopathy Resp Auscultation: clear to auscultation bilaterally Cardio Rhythm: regular rhythm GI Palpation (GI): Soft to palpation, nontender and no guarding Back/Spine/Pelvis Other: On the left upper back is note of a flat, discolored skin lesion, about 1.5 by 1 cm in dimension On the right upper back is another similar flat, discolored skin lesion, about 1 cm by point 2 cm in dimension Neuro General: patient oriented x3 Assessment & Plan Assessment & Plan (1) Skin lesion of back: Code(s): L98.9 - Disorder of the skin and subcutaneous tissue, unspecified Plan: He wants these 2 lesions removed. I explained the technique of excision under local anesthesia. I reviewed the risks including but not limited to bleeding and infections, as well as the benefits and alternatives. He understands and wants to proceed. This will be done in the office on his next visit. Coding Level of Care Code New Pt Level 3 (67216) Diagnoses Skin lesion of back L98.9
== END 2023-03-27 12:05 | disposition home or self-care (01) ==
PROVIDERS: PCP Family Medicine; Visit Provider Surgery
DX: L98.9 Disorder of the skin and subcutaneous tissue, unspecified (principal)
CPT/HCPCS: 99203

== ENCOUNTER 2023-04-17 08:53 | Outpatient (AMB) | payer MEDICARE, MEDICAID, SELFPAY ==
--- NOTE | 2023-04-17 08:56 | MHC.OFFVIS ---
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 A surgical time-out had been done. Consent had been given. The area of the lesion on the right upper back near shoulder was prepped and draped. Lidocaine 1% was used for local anesthesia.. I made an elliptical incision on the skin around the lesion on the right upper back near the shoulder using blade 15.This was carried down through the full-thickness of the skin and and part of the subcutaneous fat to excise this entire lesion. This was sent as specimen. I closed this incision with full-thickness nylon 3-0 interrupted sutures. This lesion was about 1.2 cm by consider by 0.8 cm in dimension. The 2nd lesion was on the left upper back and was placed in right lateral decubitus position. I infiltrated this area with lidocaine 1%. I made another elliptical incision around the 2nd lesion which was on the right upper back using blade 15. This was carried down through the full-thickness of the skin subcutaneous fat to excise this completely. This lesion was about 1.8 cm x 1 cm in dimension. This incision was also closed with full-thickness nylon 3-0 interrupted sutures. Dressings were applied. The procedure was completed. He tolerated the procedure well. There were no immediate complications. There was minimal blood loss. He was given wound care instructions. 00353-fscnu/arms/legs 1.1-2cm Procedure code (CPT) selection complete (Please note that the patient had 2 lesions excised) Assessment & Plan Assessment & Plan (1) Skin lesion of back: Code(s): L98.9 - Disorder of the skin and subcutaneous tissue, unspecified Plan: The patient had 2 skin lesions excised as described above. He was given wound care instructions. He will be seen in the office for removal of sutures. Coding Level of Care Code Procedure Only Diagnoses Skin lesion of back L98.9 CPT Codes Trunk/Arms/Legs - CPT: 58141-xkvdl/arms/legs 1.1-2cm ([id number])
[2023-04-17 09:27] VITALS: BP 123/58; PULSE 82
== END 2023-04-17 09:29 | disposition home or self-care (01) ==
PROVIDERS: PCP Family Medicine; Visit Provider Surgery
DX: C44.519 Basal cell carcinoma of skin of other part of trunk (principal)
CPT/HCPCS: 11602

== ENCOUNTER 2023-04-17 08:53 | Outpatient (REF) | payer MEDICARE, MEDICAID, SELFPAY | END 2023-04-17 08:54 | disposition home or self-care (01) | LOC: HO.LNP 08:53 | PROVIDERS: PCP Family Medicine; Visit Provider Surgery | DX: C44.519 Basal cell carcinoma of skin of other part of trunk (principal) | CPT/HCPCS: 11602; 88304; 88305 ==

== ENCOUNTER 2023-05-01 10:36 | Outpatient (AMB) | payer MEDICARE, MEDICAID, SELFPAY ==
--- NOTE | 2023-05-01 10:39 | MHC.OFFVIS ---
Intake Intake Visit Reasons: Follow Up Exc 2 lesions of back Intake Note: This patient presents for a follow-up assessment status post exicision of x2 back lesions. Patient c/o; denies complaints at this time. Genetic Counsellor Required: No Accompanied by: Self / Same As Patient Allergies No Known Allergies Allergy (Mild, Verified 05/01/23 10:40) NONE Medication List - Last Reconciled 05/01/23 by Ralph Oconnor MD atorvastatin 10 mg PO DAILY bupropion HCl 150 mg PO DAILY fentanyl 100 mcg/hr 1 patch topical Q3D pregabalin 75 mg PO DAILY theophylline ER 400 mg PO BID Trelegy Ellipta 100-62.5-25 mcg (djngcslqnsi-lqdiygmjs-nyeihpvn) 1 ea PO DAILY NS Ventolin HFA 90 mcg/actuation (albuterol sulfate) 2 puffs inhalation Q4-6H PRN NS HPI Follow Up Exc 2 lesions of back HPI Details He had undergone excision of 2 skin lesions from the back under local anesthesia last 04/18/2023. He tolerated the procedure well and currently denies significant complaints. 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 /[employer] Review of Systems Const Denies chills and Denies fever(s) Card Denies chest pain, Denies dyspnea and Denies dyspnea on exertion Resp Denies cough, Denies dyspnea and Denies dyspnea on exertion GI Denies hematochezia and Denies change in bowel habits Denies hematuria and Denies difficulty urinating Musc Denies back pain and Denies limited range of motion Neuro Denies focal weakness and Denies convulsions Psych Denies depression and Denies mood swings Physical Exam Const General: comfortable and no acute distress Back/Spine/Pelvis Other: Both excision sites are well healed, not infected Assessment & Plan Assessment & Plan (1) Skin lesion of back: Code(s): L98.9 - Disorder of the skin and subcutaneous tissue, unspecified Plan: Status post excision of 2 lesions. Both lesions are basal cell carcinoma on pathology. They are completely excised. His sutures were removed. Both incisions are well healed. He can follow up on a p.r.n. basis. Coding Level of Care Code Global (92639) Diagnoses Skin lesion of back L98.9
== END 2023-05-01 11:09 | disposition home or self-care (01) ==
PROVIDERS: PCP Family Medicine; Visit Provider Surgery
DX: L98.9 Disorder of the skin and subcutaneous tissue, unspecified (principal)
CPT/HCPCS: 99024

== ENCOUNTER → 2023-05-01 10:36 | Outpatient (BNVA) | payer MEDICARE, MEDICAID, SELFPAY | PROVIDERS: PCP Family Medicine; Visit Provider Surgery ==

== ENCOUNTER 2023-05-10 09:38 | Outpatient (REF) | payer MEDICARE, MEDICAID, SELFPAY ==
[2023-05-10 11:11] LABS: MANUAL DIFF FLAG NO
[2023-05-10 11:13] LABS: Basophils Absolute Auto 0.1 X10*3/uL (0.0-0.2); Basophils Percent Auto 0.8 % (0-2); Eosinophils Absolute Auto 0.3 X10*3/uL (0.0-0.4); Eosinophils Percent Auto 2.8 % (0-4); Hematocrit 35.7 % (42.0-52.0); Hemoglobin 12.1 g/dl (14.0-18.0); Imm Gran Abs Auto 0.07 X10*3/uL (0.00-0.03); Imm Gran Pct Auto 0.8 % (0.0-0.4); Lymphocytes Absolute Auto 1.2 X10*3/uL (1.2-4.9); Lymphocytes Percent Auto 13.3 % (20-40); Mean Corpuscular HGB Conc 33.9 g/dl (31.0-36.0); Mean Corpuscular Hemoglobin 35.8 pg (27.0-33.0); Mean Corpuscular Volume 105.6 fL (80.0-98.0); Mean Platelet Volume 10.6 fL (9.4-12.4); Monocytes Absolute Auto 0.5 X10*3/uL (0.1-1.2); Neutrophils Percent Auto 77.3 % (45-73); Platelet Count 198 X10*3/uL (160-400); Red Blood Count 3.38 X10*6/uL (4.60-5.80)
[2023-05-10 11:28] LABS: Alanine Aminotransferase 22 U/L (0-40); Albumin Level 4.2 g/dL (3.5-5.0); Alkaline Phosphatase 56 U/L (39-117); Anion Gap 11 (12-20); Aspartate Amino Transferase 20 U/L (5-37); Bilirubin Total 0.5 mg/dL (0.0-1.0); Blood Urea Nitrogen 18 mg/dL (9-16); Calcium 9.6 mg/dL (8.4-10.2); Carbon Dioxide 30 mmol/L (22-29); Chloride 102 mmol/L (96-108); Estimated Glomerular Filt Rate > 60; Glucose Random 124 mg/dL (60-115); Potassium 4.3 mmol/L (3.3-5.1); Sodium 139 mmol/L (135-145)
[2023-05-10 12:02] LABS: Folate 15.5 ng/mL (> or = 4.0); Vitamin B12 > 2000 pg/mL (200-900)
== END 2023-05-10 09:39 | disposition home or self-care (01) ==
LOC: HO.HMGCLDS 09:38
PROVIDERS: PCP Internal Medicine Medical Oncology; Visit Provider Internal Medicine Medical Oncology
DX: D64.9 Anemia, unspecified (principal); N18.2 Chronic kidney disease, stage 2 (mild); E66.3 Overweight
CPT/HCPCS: 36415; 80053; 82607; 82746; 85025

== ENCOUNTER 2023-07-11 11:20 | Emergency (ER) | payer MEDICARE, MEDICAID, SELFPAY ==
--- NOTE | ~2023-07-11 | XR_ITS ---
EXAMINATION: XR CHEST CLINICAL INFORMATION: Dyspnea COMPARISON: 07/26/2022. CT 09/18/2021. TECHNIQUE: Frontal view of the chest was obtained. FINDINGS: Emphysema with subtle streaky lower lobe opacities, right greater than left. This appears similar to the previous study. No definite new or discrete consolidation. No pleural effusion or pulmonary edema. Stable cardiomediastinal silhouette. XR/XR chest 1V IMPRESSION: Emphysema with subtle streaky lower lobe opacities, right greater than left, similar to the previous study.
[2023-07-11 11:23] VITALS: PULSE 88; RESP 26; TEMP 36.6; O2SAT 98; BMI 27.7
--- NOTE | 2023-07-11 11:24 | ECG_ITS ---
Test Reason : DYSPNEA Blood Pressure : / mmHG Vent. Rate : 096 BPM Atrial Rate : 096 BPM P-R Int : 158 ms QRS Dur : 098 ms QT Int : 330 ms P-R-T Axes : 069 -04 061 degrees QTc Int : 416 ms Normal sinus rhythm Incomplete right bundle branch block Borderline ECG When compared with ECG of 26-OCT-2007 14:22, Vent. rate has increased BY 38 BPM Referred By: Sandrine Artis Electronically Signed By:SOWMYA HERNANDEZ MD
--- NOTE | 2023-07-11 11:29 | ED_ITS ---
HPI - SOB/Dyspnea General Chief Complaint: Dyspnea Stated Complaint: sob Time Seen by Provider: 07/11/23 11:23 Source: patient Mode of arrival: ambulatory Limitations: no limitations History of Present Illness HPI Narrative: 78 yo male with PMH of COPD 10mg prednisone daily but no on home O2, bronchiectasis, notes 2 days ago started with dry cough wheezing and unable to get sputum up. He denies fevers, sick contacts, travel or sputum production. He was walked over by his PCP MD elicited complaint: shortness of breath and cough Pertinent past history: COPD Onset (ago): day(s) (2) Timing: progressively worsening Severity: moderate Exacerbating factors: exertion and coughing Relieving factors: oxygen and rest Known history of: COPD Associated symptoms: cough and wheezing Treatment prior to arrival: oxygen Related Data Home Medications Medication Instructions Recorded Confirmed atorvastatin 10 mg tablet 10 mg PO DAILY 06/19/20 05/01/23 bupropion HCl 150 mg tablet,12 hr 150 mg PO DAILY 01/02/22 05/01/23 sustained-release fentanyl 100 mcg/hr transdermal 1 patch topical Q3D 01/02/22 05/01/23 patch pregabalin 75 mg capsule 75 mg PO DAILY 01/02/22 05/01/23 Previous Rx's Medication Instructions Recorded Trelegy Ellipta 100 mcg-62.5 1 ea PO DAILY #180 ea 12/10/22 mcg-25 mcg powder for inhalation (flfttnfsplx-iprztrydf-vvptqbzf) Ventolin HFA 90 mcg/actuation 2 puff inhalation Q4-6H PRN for 12/12/22 aerosol inhaler (albuterol sulfate) wheezing #36 grams theophylline 400 mg 400 mg PO BID #60 tabs 06/26/23 tablet,extended release 24 hr amoxicillin 875 mg-potassium 1 tab PO BID #14 tabs 07/11/23 clavulanate 125 mg tablet doxycycline hyclate 100 mg capsule 100 mg PO BID 7 days #14 caps 07/11/23 prednisone 20 mg tablet 40 mg (2 x 20 mg) PO DAILY 5 days 07/11/23 #10 tabs Allergies Allergy/AdvReac Type Severity Reaction Status Date / Time No Known Allergies Allergy Mild NONE Verified 05/01/23 10:40 Review of Systems 2 Review of Systems: Constitutional : No Fever, No Chills ENT/Mouth : No Hoarseness, No sore throat, No Rhinorrhea Eyes: No Redness, No Discharge, No Vision Changes Cardiovascular : No Chest Pain, positive SOB, positive Dyspnea on Exertion, No Edema Respiratory : positive Cough, No Sputum, positive Wheezing, Gastrointestinal : No Nausea, No Vomiting, No Diarrhea, No abdominal Pain Genitourinary : No Dysuria, No Hematuria Musculoskeletal : No joint pain, No Myalgias Skin : No rash Neuro : No Weakness, No Numbness, No Headache Psych : No anxiety, depression Heme/Lymph: No Bruising, No Bleeding Endocrine : No Polyuria, No Polydipsia All other systems reviewed and are negative [facility] Past Medical History Source: old records reviewed Medical History Skin lesion of back Chronic obstructive pulmonary disease, unspecified Diverticulosis of large intestine without perforation or abscess without bleeding 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 Surgical History History of excision of lesion (~04/17/23) History of repair of rotator cuff History of colon resection (~2001) Family History Family History Mother Hypertension Father Hypertension Social History Social History (Updated 07/11/23 @ 12:03 by Sandrine Artis DO) Alcohol intake: never Patient Tobacco Use Status: Tobacco use Unknown Smoked in Last 30 Days: No Advance Directives: No Advance Directives Information Provided: No Current occupational status: employed and retired 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 Oriented X3. mild acute distress. Eyes: Pupils equal, round and reactive to light. ENT: Pharynx normal. Neck: Normal inspection. Neck supple. CVS: Normal heart rate and rhythm. Pulses normal. Respiratory: Mild respiratory distress - tachypnea and retractions. Breath sounds diffuse exp wheezes throughout Abdomen: Soft and nontender. Skin: Skin warm and dry. Normal skin color. Normal skin turgor. Extremities: No lower extremity edema. No calf ttp Neuro: Oriented X 3. No motor deficit. No sensory deficit. Course Course Course Narrative: ambulation trial 93% does have PRN O2 at home Medications Administered Discontinued Medications Generic Name Dose Route Start Last Admin Trade Name Angela PRN Reason Stop Dose Admin Albuterol Sulfate 10 mg 07/11/23 11:24 07/11/23 11:31 Albuterol Sulfate 2.5 Mg/0.5 Ml Vial.Neb INHALE 07/11/23 11:25 10 mg ONCE ONE Administration Ceftriaxone Sodium 1 gm/ 50 mls @ 100 mls/hr 07/11/23 12:04 07/11/23 13:10 Sodium Chloride IV 07/11/23 12:33 Infused ONCE ONE Infusion Methylprednisolone Sodium Succinate 60 mg 07/11/23 11:24 07/11/23 11:39 Methylprednisolone Sod Succ 125 Mg/2 Ml Vial IVPUSH 07/11/23 11:25 60 mg ONCE ONE Administration Medical Decision Making Medical Decision Making [facility] Narrative: 78 yo male with PMH of COPD 10mg prednisone daily but no on home O2, bronchiectasis here with c/o cough unable to produce sputum increasing difficulty breathing and wheezing at this time he will need 10mg neb, CXR, labs, viral panel and empiric ceftriaxone for presumed COPD. He has no CP to suggest ACS and no LE edema to suggest CHF. Differential Diagnosis Differential Diagnoses: The differential diagnosis associated with the presentation includes COPD, pneumonia, viral syndrome Admission/Observation Consideration of admission/observation: Escalation of care including admission/observation considered other than WBC count of 17 of did have steroid injections yesterday which could be cause does feel better has no resp distress after treatment obs x 3 hours. passed ambulation trial will DC on increased steroids and PO antibiotics. Lab Data [facility] Lab Attestation statement: I reviewed the patient's lab results. 07/11/23 11:47 07/11/23 11:47 Labs: Lab Results 07/11/23 07/11/23 07/11/23 Range/Units 11:47 11:58 12:51 WBC 17.6 H (4.8-10.8) X10*3/uL RBC 3.40 L (4.60-5.80) X10*6/uL Hgb 12.3 L (14.0-18.0) g/dl Hct 36.7 L (42.0-52.0) % MCV 107.9 H (80.0-98.0) fL MCH 36.2 H (27.0-33.0) pg MCHC 33.5 (31.0-36.0) g/dl RDW 16.9 H (11.0-16.0) % Plt Count 232 (160-400) X10*3/uL MPV 11.0 (9.4-12.4) fL Immature Gran % (Auto) 0.8 H (0.0-0.4) % Neut % (Auto) 90.4 H (45-73) % Lymph % (Auto) 2.9 L (20-40) % Ceiba % (Auto) 5.4 (2-11) % Eos % (Auto) 0.1 (0-4) % Baso % (Auto) 0.4 (0-2) % Lymph # (Auto) 0.5 L (1.2-4.9) X10*3/uL [place] # (Auto) 1.0 (0.1-1.2) X10*3/uL Eos # (Auto) 0.0 (0.0-0.4) X10*3/uL Baso # (Auto) 0.1 (0.0-0.2) X10*3/uL Abs Immat Gran (auto) 0.14 H (0.00-0.03) X10*3/uL Absolute Neuts (auto) 15.9 H (2.0-8.3) x10*3/uL Absolute Nucleated RBC 0.030 H (0.0-0.012) X10*3/uL Nucleated RBC % (auto) 0.2 (0.0-0.2) /100WBC Smear Tech's Comments VERIFIED VBG pH 7.44 H (7.32-7.43) VBG pCO2 42 mmHg VBG pO2 53 mmHg VBG HCO3 29 H (22-26) mmol/L VBG O2 Saturation 86.0 % VBG Base Excess 4.6 mmol/L Sodium 141 (135-145) mmol/L Potassium 4.6 (3.3-5.1) mmol/L Chloride 105 (96-108) mmol/L Carbon Dioxide 28 (22-29) mmol/L Anion Gap 13 (12-20) BUN 17 H (9-16) mg/dL Creatinine 1.00 (0.5-1.4) mg/dL Estim Creat Clear Calc 71.0 Estimated GFR > 60 Random Glucose 161 H (60-115) mg/dL Lactic Acid 1.9 (0.5-2.0) mmol/L Calcium 9.2 (8.4-10.2) mg/dL Magnesium 2.0 (1.6-2.6) mg/dL Total Bilirubin 0.6 (0.0-1.0) mg/dL Direct Bilirubin 0.2 (0.0-0.5) mg/dL AST 21 (5-37) U/L ALT 26 (0-40) U/L Alkaline Phosphatase 64 (39-117) U/L Troponin I High Sens 3.6 (<3.5-35.0) ng/L B-Natriuretic Peptide 96 (<100) pg/mL Total Protein 7.4 (6.5-8.0) g/dL Albumin 4.3 (3.5-5.0) g/dL Urine Color Yellow Urine Appearance Clear Urine pH 5.5 (5.0-9.0) Ur Specific [place] 1.020 (1.005-1.025) Urine Protein Negative (Neg-Trace) mg/dL Urine Glucose (UA) Negative (Negative) mg/dL Urine Ketones Negative (Negative) mg/dL Urine Blood Negative (Negative) Urine Nitrite Negative (Negative) Ur Leukocyte Esterase Negative (Negative) Influenza Type A (PCR) NEGATIVE (Negative) Influenza Type B (PCR) NEGATIVE (Negative) RSV RNA Qual (PCR) NEGATIVE (Negative) SARS-CoV-2 RNA (RT-PCR) NEGATIVE (Negative) Independent Interpretation I performed an independent interpretation of an: EKG and Plain X-Ray (no focal consolidation) Interpretation: Rate: 96 Rhythm: NSR [place]: normal Normal P waves. Normal BHAVIN. Normal QRS complex. ST T wave : normal no ADAN qTC: normal prior studies: no acute ischemia The study has been interpreted contemporaneously by me. . Radiology Impression Discussion of test interpretation with radiology: I have reviewed the radiologist's reading. External Record Review External record reviewed: Inpatient record Prescription Management I considered prescription management with: Antibiotic and Other Discharge Plan Discharge Clinical Impression: Acute exacerbation of chronic obstructive pulmonary disease, Bronchitis Patient Disposition: Home, Self-Care Instructions: Acute Bronchitis (ED), COPD (Chronic Obstructive Pulmonary Disease) (ED) Additional Instructions: return for worsening symptoms - difficulty breathing, chest pain, vomiting, no improvement or any other concerns. On amoxicillin-clavulanate, softer bowel movements are to be expected. Call your provider if you move your bowels more than 4 times a day, your bowel movements are almost all liquid, or you get a rash.? On doxycycline, do not take pills immediately before going to bed and swallow pills with plenty of water. Avoid direct sunlight, iron, antacids, and Pepto Bismol. Call your provider if you develop new ringing in your ears, new problems hearing, dizziness, difficulty swallowing, rash, abdominal discomfort, nausea, or diarrhea.? REPEAT CBC COUNT NEXT WEEK WITH DOCTOR TO MAKE SURE IT IS COMING DOWN. CARRY YOUR OXYGEN WITH YOU RETURN OF YOUR SATURATIONS GO BELOW 90% Prescriptions: New doxycycline hyclate 100 mg capsule 100 mg PO BID 7 Days Qty: 14 0RF prednisone 20 mg tablet 40 mg PO DAILY 5 Days Qty: 10 0RF amoxicillin-pot clavulanate 875-125 mg tablet 1 tab PO BID Qty: 14 0RF No Action Trelegy Ellipta 100-62.5-25 mcg blister with device 1 ea PO DAILY Qty: 180 2RF albuterol sulfate [Ventolin HFA] 90 mcg/actuation HFA aerosol inhaler 2 puff inhalation Q4-6H PRN (Reason: for wheezing) Qty: 36 6RF theophylline 400 mg tablet extended release 24 hr 400 mg PO BID Qty: 60 6RF atorvastatin 10 mg tablet 10 mg PO DAILY bupropion HCl 150 mg tablet sustained-release 12 hr 150 mg PO DAILY fentanyl 100 mcg/hr patch 72 hour 1 patch topical Q3D pregabalin 75 mg capsule 75 mg PO DAILY
[2023-07-11] MEDS: Albuterol Sulfate 2.5 MG/0.5 ML VIAL.NEB 10 MG INHALE (11:31)
[2023-07-11 11:35] VITALS: PULSE 83; RESP 20; O2SAT 97
[2023-07-11] MEDS: methylPREDNISolone Sod Succ 125 MG/2 ML VIAL 60 MG IVPUSH (11:39)
[2023-07-11 12:01] LABS: Basophils Absolute Auto 0.1 X10*3/uL (0.0-0.2); Basophils Percent Auto 0.4 % (0-2); Eosinophils Percent Auto 0.1 % (0-4); Hematocrit 36.7 % (42.0-52.0); Hemoglobin 12.3 g/dl (14.0-18.0); Imm Gran Abs Auto 0.14 X10*3/uL (0.00-0.03); Imm Gran Pct Auto 0.8 % (0.0-0.4); Lymphocytes Absolute Auto 0.5 X10*3/uL (1.2-4.9); Lymphocytes Percent Auto 2.9 % (20-40); MANUAL DIFF FLAG SCAN; Mean Corpuscular HGB Conc 33.5 g/dl (31.0-36.0); Mean Corpuscular Hemoglobin 36.2 pg (27.0-33.0); Mean Corpuscular Volume 107.9 fL (80.0-98.0); Monocytes Percent Auto 5.4 % (2-11); NRBC Pct Auto 0.2 /100WBC (0.0-0.2); Neutrophils Absolute Auto 15.9 x10*3/uL (2.0-8.3); Neutrophils Percent Auto 90.4 % (45-73); Platelet Count 232 X10*3/uL (160-400); Red Cell Distribution Width 16.9 % (11.0-16.0); SCAN SMEAR FLAG 1; White Blood Count 17.6 X10*3/uL (4.8-10.8)
[2023-07-11 12:04] LABS: Venous Blood Gas Refer to POC result
[2023-07-11 12:05] LABS: VBG Base Excess 4.6 mmol/L; VBG HCO3 29 mmol/L (22-26); VBG pCO2 42 mmHg; VBG pH 7.44 (7.32-7.43); VBG pO2 53 mmHg
[2023-07-11 12:10] LABS: Lactic Acid 1.9 mmol/L (0.5-2.0)
[2023-07-11 12:15] LABS: Alanine Aminotransferase 26 U/L (0-40); Albumin Level 4.3 g/dL (3.5-5.0); Alkaline Phosphatase 64 U/L (39-117); Anion Gap 13 (12-20); Aspartate Amino Transferase 21 U/L (5-37); Bilirubin Direct 0.2 mg/dL (0.0-0.5); Bilirubin Total 0.6 mg/dL (0.0-1.0); Blood Urea Nitrogen 17 mg/dL (9-16); Calcium 9.2 mg/dL (8.4-10.2); Carbon Dioxide 28 mmol/L (22-29); Chloride 105 mmol/L (96-108); Estimated Glomerular Filt Rate > 60; Glucose Random 161 mg/dL (60-115); Potassium 4.6 mmol/L (3.3-5.1); Sodium 141 mmol/L (135-145); Total Protein 7.4 g/dL (6.5-8.0)
[2023-07-11 12:20] LABS: B Type Natriuretic Peptide 96 pg/mL (<100)
[2023-07-11 12:22] LABS: Troponin-I High Sensitivity 3.6 ng/L (<3.5-35.0)
[2023-07-11 12:23] LABS: SLIDE REVIEW VERIFIED
--- NOTE | 2023-07-11 12:24 | PC.NURSE ---
tech obtaining second set of culture - will administer abx when able.
[2023-07-11 12:35] VITALS: BP 156/63; PULSE 99; RESP 13; TEMP 36.9; O2SAT 93
[2023-07-11] MEDS: cefTRIAXone sodium 1 GM in 0.9 % Sodium Chloride 50 ML IV (12:39)
--- NOTE | 2023-07-11 12:39 | PC.NURSE ---
vss and up t date at this time. 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 abx administered per provider order. tech bedside performing ekg. pt verbalizing that breathing feels much better post nebulizer treatment from RT. no sob/wob noted at this time. pt rests on RA w/o no difficulties. pt able to speak in full/clear sentences w/o difficulties as well. respirations even and unlabored. call costa placed within reach.
[2023-07-11 13:01] LABS: Appearance Urine Clear; Color Urine Yellow; Glucose Urine UA Negative (Negative); Leukocyte Esterase Urine Negative (Negative); Nitrite Urine Negative (Negative); PH 5.5 (5.0-9.0); Urine Blood Negative (Negative); Urine Ketones Negative (Negative); Urine Protein Negative (Neg-Trace)
[2023-07-11 13:42] LABS: Influenza A PCR NEGATIVE (Negative); Influenza B PCR NEGATIVE (Negative); Resp Syncy Virus RNA Qual PCR NEGATIVE (Negative); SARS COV2 PCR INHOUSE NEGATIVE (Negative)
[2023-07-11] MEDS: Albuterol/Iprat 2.5/0.5MG 3 ML AMPUL.NEB INHALE (14:27)
[2023-07-11 14:28] VITALS: PULSE 89; RESP 16; O2SAT 93
--- NOTE | 2023-07-11 14:32 | PC.NURSE ---
pt receiving duoneb treatment from RT.
== END 2023-07-11 15:10 | disposition home or self-care (01) ==
PROVIDERS: Emergency Provider Emergency Medicine; PCP Internal Medicine Medical Oncology
DX: J44.1 Chronic obstructive pulmonary disease with (acute) exacerbation (principal); J40 Bronchitis, not specified as acute or chronic; R06.02 Shortness of breath; R05.9 Cough, unspecified; R94.31 Abnormal electrocardiogram [ECG] [EKG]; Z79.899 Other long term (current) drug therapy; Z20.822 Contact with and (suspected) exposure to COVID-19; Z20.828 Contact with and (suspected) exposure to other viral communicable diseases
CPT/HCPCS: 0241U; 36415; 71045; 80048; 80076; 81003; 82803; 83605; 83735; 83880; 84484; 85025; 87040; 93005; 94640; 96365; 96375; 99284; 99285; J0696; J2930

== ENCOUNTER 2023-09-02 10:11 | Outpatient (AMB) | payer MEDICARE, MEDICAID, SELFPAY ==
[2023-09-02 10:13] VITALS: BP 134/52; PULSE 92; O2SAT 93; BMI 28.8
--- NOTE | 2023-09-02 10:13 | A.OFFVIS_ITS ---
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 He continues to use Trelegy, theophylline 400 twice a day, and albuterol MDI with reasonable baseline control his symptoms.? Now he does complain of acute exacerbation of his underlying bronchiectasis with increased mucus and cough. 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 Review of Systems Const Denies daytime sleepiness, Denies excessive sweating, Denies fatigue, Denies fever(s), Denies lethargy, Denies malaise, Denies night sweats, Denies snoring and Denies weight loss Eyes Denies blurry vision and Denies itchy eyes ENT Denies nasal congestion, Denies post nasal drip, Denies sinus pain, Denies sinus pressure and Denies other ( Thrush) Card Denies chest pain, Denies pedal edema, Denies dyspnea, Reports dyspnea on exertion, Denies orthopnea and Denies paroxysmal nocturnal dyspnea Resp Reports cough, Denies hemoptysis, Reports excessive phlegm production, Denies dyspnea, Reports dyspnea on exertion, Denies snoring and Denies wheezing GI Denies abdominal pain and Denies heartburn Musc Denies myalgias, Denies arthralgias and Denies joint swelling Skin/Breast Denies rash Neuro Denies memory loss and Denies seizure-like activity Psych Denies abnormal sleep pattern, Denies anxiety and Denies memory loss Endo Denies excessive sweating, Denies fatigue and Denies heat intolerance Morgan/Lymph Denies easy bruising Aller/Immun Denies itchy eyes, Denies seasonal rhinorrhea and Denies wheezing Physical Exam Vital Signs: Last Vital Signs Pulse 92 09/02/23 10:13 BP 134/52 L 09/02/23 10:13 Pulse Ox 93 09/02/23 10:13 Oxygen Delivery Method Room Air 09/02/23 10:13 BMI result Body Mass Index 28.8 Const General: no acute distress and alert Nutritional Appearance: not obese Orientation/consciousness: Other orientation findings ( oriented) HEENT Head: Yes atraumatic Eyes General: appearance normal, both eyes and all related structures Sclerae: sclerae normal EOM: EOMs intact bilaterally Neck Neck: Yes supple Lymphatic: no lymphadenopathy noted Resp Effort & Inspection: normal respiratory effort and no use of accessory muscles Auscultation: clear to auscultation bilaterally Cardio Rate: regular rate Rhythm: regular rhythm Heart sounds: no gallops, no murmurs and no rubs Skin General skin exam: other ( warm) Extrem General: No clubbing, No cyanosis and No edema Assessment & Plan Assessment & Plan (1) Bronchiectasis: Code(s): J47.9 - Bronchiectasis, uncomplicated Plan: Now with an acute exacerbation. Will treat with a course of levofloxacin. (2) Supplemental oxygen dependent: Code(s): Z99.81 - Dependence on supplemental oxygen Plan: Continue supplemental oxygen to maintain O2 saturation of 88-92%. (3) Chronic obstructive pulmonary disease, unspecified: Code(s): J44.9 - Chronic obstructive pulmonary disease, unspecified Plan: Baseline controlled on Trelegy and albuterol MDI. Continue current regimen. Medications: New levofloxacin 750 mg PO DAILY 7 tabs 0RF guaifenesin ER (Mucinex) 1,200 mg (2 x 600 mg) PO BID 56 tabs 0RF 14 days Refilled theophylline ER 400 mg PO BID 60 tabs 6RF R91.8 - Other nonspecific abnormal finding of lung field Coding Level of Care Code Est Pt Level 4 (19494) Diagnoses Bronchiectasis J47.9 Supplemental oxygen dependent Z99.81 Chronic obstructive pulmonary disease, unspecified J44.9
== END 2023-09-02 10:35 | disposition home or self-care (01) ==
PROVIDERS: PCP Family Medicine; Visit Provider Internal Medicine Pulmonary Disease
DX: J47.9 Bronchiectasis, uncomplicated (principal); Z99.81 Dependence on supplemental oxygen
CPT/HCPCS: 99214

== ENCOUNTER → 2023-09-02 10:11 | Outpatient (BNVA) | payer MEDICARE, MEDICAID, SELFPAY | PROVIDERS: PCP Family Medicine; Visit Provider Internal Medicine Pulmonary Disease | DX: J47.9 Bronchiectasis, uncomplicated (principal); J44.9 Chronic obstructive pulmonary disease, unspecified; Z99.81 Dependence on supplemental oxygen | CPT/HCPCS: 99212 ==

== ENCOUNTER 2023-09-10 10:56 | Outpatient (REF) | payer MEDICARE, MEDICAID, SELFPAY ==
[2023-09-10 13:41] LABS: MANUAL DIFF FLAG NO
[2023-09-10 13:49] LABS: Basophils Absolute Auto 0.1 X10*3/uL (0.0-0.2); Eosinophils Percent Auto 0.6 % (0-4); Imm Gran Abs Auto 0.06 X10*3/uL (0.00-0.03); Imm Gran Pct Auto 0.9 % (0.0-0.4); Immature Retic Fraction 26.7 % (2.3-13.4); Lymphocytes Absolute Auto 0.8 X10*3/uL (1.2-4.9); Lymphocytes Percent Auto 11.9 % (20-40); Mean Corpuscular HGB Conc 33.3 g/dl (31.0-36.0); Mean Corpuscular Hemoglobin 36.4 pg (27.0-33.0); Mean Corpuscular Volume 109.3 fL (80.0-98.0); Mean Platelet Volume 10.9 fL (9.4-12.4); Monocytes Absolute Auto 0.3 X10*3/uL (0.1-1.2); Monocytes Percent Auto 4.5 % (2-11); NRBC Pct Auto 0.3 /100WBC (0.0-0.2); Neutrophils Absolute Auto 5.5 x10*3/uL (2.0-8.3); Neutrophils Percent Auto 81.1 % (45-73); Platelet Count 228 X10*3/uL (160-400); Red Blood Count 3.02 X10*6/uL (4.60-5.80); Red Cell Distribution Width 15.9 % (11.0-16.0); Retic HGB Equivalent 37.4 pg (30.0-35.0); Reticulocyte Percent 1.7 % (0.5-1.8); Reticulocytes Absolute 0.051 X10*6/uL (0.026-0.095); White Blood Count 6.8 X10*3/uL (4.8-10.8)
[2023-09-10 14:26] LABS: Ferritin 227 ng/mL (20-250)
== END 2023-09-10 10:57 | disposition home or self-care (01) ==
LOC: HO.HMGCLDS 10:56
PROVIDERS: PCP Internal Medicine Medical Oncology; Visit Provider Internal Medicine Medical Oncology
DX: D46.9 Myelodysplastic syndrome, unspecified (principal)
CPT/HCPCS: 36415; 82728; 85025; 85045

== ENCOUNTER 2023-10-17 11:01 | Inpatient (IN) | payer MEDICARE, OTHER, SELFPAY ==
[2023-10-17] VITALS (7 sets, daily range): BP systolic 110–145; BP diastolic 48–63; PULSE 66–82; RESP 13–18; TEMP 36.4–36.9; O2SAT 86–96; BMI 27.5
--- NOTE | ~2023-10-17 | XR_ITS ---
EXAMINATION: XR CHEST CLINICAL INFORMATION: SOB. COMPARISON: Chest x-ray 07/11/2023 TECHNIQUE: Frontal view of the chest was obtained. FINDINGS: The lungs are well-expanded with streaky opacities in both lung bases slightly greater on the left side. Infiltrate is not excluded. Upper lungs are clear. Heart size is normal. No gross bony abnormality seen. XR/XR chest 1V IMPRESSION: Streaky opacities in both lung bases slightly greater on the left side question infiltrate versus atelectasis.
--- NOTE | 2023-10-17 11:18 | ECG_ITS ---
Test Reason : weakness Blood Pressure : / mmHG Vent. Rate : 081 BPM Atrial Rate : 081 BPM P-R Int : 190 ms QRS Dur : 096 ms QT Int : 382 ms P-R-T Axes : 068 001 033 degrees QTc Int : 443 ms Normal sinus rhythm with sinus arrhythmia Septal infarct , age undetermined Abnormal ECG When compared with ECG of 11-JUL-2023 12:40, Septal infarct is now Present Referred By: Christy Chapman Electronically Signed By:MELLISA RICCI MD
[2023-10-17 11:38] LABS: MANUAL DIFF FLAG NO
[2023-10-17 11:45] LABS: INTERNATIONAL NORM RATIO 1.1 (0.9-1.1); Prothrombin Time 13.5 SEC (11.1-13.3)
--- NOTE | 2023-10-17 11:45 | ED_ITS ---
HPI - Weakness General Chief complaint: Weakness Stated complaint: WEAKNESS DIFFICULTY BREATHING Time Seen by Provider: 10/17/23 11:18 Source: patient and EMS Mode of arrival: ambulatory Limitations: other (Poor historian) History of Present Illness HPI Narrative: This is a 78-year-old male history of COPD on 3-4 L nasal cannula, pulmonary nodules presenting to the emergency department fatigue, malaise, myalgias, poor p.o. intake, shortness of breath for the past 3 weeks acutely worsening over the past few days. Patient reports he has no strength to do his activities of daily living and just does not feel right. Denies recent sick contacts. Denies chest pain, nausea, vomiting, diarrhea, abdominal pain, headache, vision changes, dizziness, neck pain, fevers and chills Related Data Home Medications Medication Instructions Recorded Confirmed atorvastatin 10 mg tablet 10 mg PO DAILY 06/19/20 05/01/23 bupropion HCl 150 mg tablet,12 hr 150 mg PO DAILY 01/02/22 05/01/23 sustained-release fentanyl 100 mcg/hr transdermal 1 patch topical Q3D 01/02/22 05/01/23 patch pregabalin 75 mg capsule 75 mg PO DAILY 01/02/22 05/01/23 Previous Rx's Medication Instructions Recorded Ventolin HFA 90 mcg/actuation 2 puff inhalation Q4-6H PRN for 12/12/22 aerosol inhaler (albuterol sulfate) wheezing #36 grams amoxicillin 875 mg-potassium 1 tab PO BID #14 tabs 07/11/23 clavulanate 125 mg tablet doxycycline hyclate 100 mg capsule 100 mg PO BID 7 days #14 caps 07/11/23 prednisone 20 mg tablet 40 mg (2 x 20 mg) PO DAILY 5 days 07/11/23 #10 tabs fluticasone fur. 100 mcg-umeclid 1 ea inhalation DAILY #180 ea 09/01/23 62.5 mcg-vilant 25 mcg inhalat.powder (Trelegy Ellipta) guaifenesin 600 mg tablet, 1,200 mg (2 x 600 mg) PO BID 14 09/02/23 extended release 12 hr (Mucinex) days #56 tabs levofloxacin 750 mg tablet 750 mg PO DAILY #7 tabs 09/02/23 theophylline 400 mg 400 mg PO BID #60 tabs 09/02/23 tablet,extended release 24 hr Allergies Allergy/AdvReac Type Severity Reaction Status Date / Time No Known Allergies Allergy Mild NONE Verified 10/17/23 11:21 Review of Systems 2 Review of Systems: Yes all other systems are reviewed and are negative [facility] Past Medical History Attestation statement: The following information was validated with the patient. 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 Surgical History History of excision of lesion (~04/17/23) History of repair of rotator cuff History of colon resection (~2001) Family History Family History Mother Hypertension Father Hypertension Social History Social History Alcohol intake: never Patient Tobacco Use Status: Tobacco use Unknown Smoked in Last 30 Days: No Use of substances other than those prescribed or required for medical reasons: No Advance Directives: No Advance Directives Information Provided: No Current occupational status: employed and retired 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 Oriented X3.? No acute distress.? Head: Normocephalic, atraumatic, no step-offs or deformities Eyes: Pupils equal, round and reactive to light.? Neck: Normal inspection.? Neck supple.? CVS: Normal heart rate and rhythm.? Pulses normal.? Respiratory: No respiratory distress.? Breath sounds diminished b/l w/ faint lower lobe crackles .? Abdomen: Soft and nontender.? Skin: Skin warm and dry.? Normal skin color.? Normal skin turgor.? Extremities: No lower extremity edema.? No calf ttp. 5/5 strength to bilateral upper and lower extremities Neuro: Oriented X 3.? No motor deficit.? No sensory deficit. CN 2-12 intact Course Reevaluation(s) Reevaluation #1: CBC with a macrocytic anemia at baseline. No acute findings . Chemistry with slightly elevated BUN and creatinine fluids given. Age adjusted D-dimer negative. UA negative. COVID positive. Chest x-ray streaky opacities in both lung as slightly greater on the left side question infiltrate based off history and physical exam concerning for infiltrate Time: 12:48 Medical Decision Making Medical Decision Making [facility] Narrative: 1146 78-year-old male presents for evaluation of fatigue, malaise, myalgias, shortness of breath the past 3 weeks worsening acutely over the past few days Physical examination No respiratory distress.? Breath sounds diminished b/l w/ faint lower lobe crackles . Concerns for viral illness versus bronchitis. Will rule out CHF. Unlikely ACS, PE, dissection. Also rule out urinary tract infection electrolyte abnormalities although unlikely Plan labs, imaging, urine, viral test Differential Diagnosis Differential Diagnoses: The differential diagnosis associated with the presentation includes Concerns for viral illness versus bronchitis. Will rule out CHF. Unlikely ACS, PE, dissection. Also rule out urinary tract infection electrolyte abnormalities although unlikely Admission/Observation Consideration of admission/observation: Escalation of care including admission/observation considered Possible Lab Data [facility] Lab Attestation statement: I reviewed the patient's lab results. 10/17/23 11:32 10/17/23 11:32 Labs: Lab Results 10/17/23 10/17/23 Range/Units 11:32 12:21 WBC 7.5 (4.8-10.8) X10*3/uL RBC 3.08 L (4.60-5.80) X10*6/uL Hgb 11.0 L (14.0-18.0) g/dl Hct 32.5 L (42.0-52.0) % MCV 105.5 H (80.0-98.0) fL MCH 35.7 H (27.0-33.0) pg MCHC 33.8 (31.0-36.0) g/dl RDW 14.9 (11.0-16.0) % Plt Count 332 D (160-400) X10*3/uL MPV 11.1 (9.4-12.4) fL Immature Gran % (Auto) 1.3 H (0.0-0.4) % Neut % (Auto) 80.9 H (45-73) % Lymph % (Auto) 10.8 L (20-40) % [place] % (Auto) 6.0 (2-11) % Eos % (Auto) 0.3 (0-4) % Baso % (Auto) 0.7 (0-2) % Lymph # (Auto) 0.8 L (1.2-4.9) X10*3/uL [place] # (Auto) 0.5 (0.1-1.2) X10*3/uL Eos # (Auto) 0.0 (0.0-0.4) X10*3/uL Baso # (Auto) 0.1 (0.0-0.2) X10*3/uL Abs Immat Gran (auto) 0.10 H (0.00-0.03) X10*3/uL Absolute Neuts (auto) 6.1 (2.0-8.3) x10*3/uL Absolute Nucleated RBC 0.000 (0.0-0.012) X10*3/uL Nucleated RBC % (auto) 0.0 (0.0-0.2) /100WBC PT 13.5 H (11.1-13.3) SEC INR 1.1 (0.9-1.1) D-Dimer High Sensitivty 334 NG/ML Sodium 138 (135-145) mmol/L Potassium 4.8 (3.3-5.1) mmol/L Chloride 104 (96-108) mmol/L Carbon Dioxide 23 (22-29) mmol/L Anion Gap 16 (12-20) BUN 17 H (9-16) mg/dL Creatinine 1.14 (0.5-1.4) mg/dL Estim Creat Clear Calc 60.5 Estimated GFR > 60 Random Glucose 126 H (60-115) mg/dL Calcium 9.3 (8.4-10.2) mg/dL Magnesium 2.2 (1.6-2.6) mg/dL Total Bilirubin 0.4 (0.0-1.0) mg/dL AST 29 (5-37) U/L ALT 28 (0-40) U/L Alkaline Phosphatase 75 (39-117) U/L Troponin I High Sens 4.9 (<3.5-35.0) ng/L B-Natriuretic Peptide 21 (<100) pg/mL Total Protein 7.5 (6.5-8.0) g/dL Albumin 3.6 (3.5-5.0) g/dL Urine Color Dark Yellow Urine Appearance Clear Urine pH 5.5 (5.0-9.0) Ur Specific [place] 1.020 (1.005-1.025) Urine Protein 30 (1+) H (Neg-Trace) mg/dL Urine Glucose (UA) Negative (Negative) mg/dL Urine Ketones Negative (Negative) mg/dL Urine Blood Negative (Negative) Urine Nitrite Negative (Negative) Ur Leukocyte Esterase Negative (Negative) Urine RBC 0-2 (0-2) /HPF Urine WBC 0-5 (0-5) /HPF Ur Squamous Epith Cells 0-2 (0-2) /HPF Urine Bacteria None Seen (None Seen) Hyaline Casts 6-10 (0-2) /LPF Influenza Type A (PCR) NEGATIVE (Negative) Influenza Type B (PCR) NEGATIVE (Negative) RSV RNA Qual (PCR) NEGATIVE (Negative) SARS-CoV-2 RNA (RT-PCR) POSITIVE A (Negative) Independent Interpretation I performed an independent interpretation of an: EKG (Normal sinus rhythm with sinus arrhythmia ventricular rate of 81, DE normal, QRS normal, QT/QTC normal. No ST elevations or inversions concerning for acute ischemia peer) and Plain X- Ray ( XR/XR chest 1V IMPRESSION: Streaky opacities in both lung bases slightly greater on the left side question infiltrate versus atelectasis. ) Radiology Impression Discussion of test interpretation with radiology: I have reviewed the radiologist's reading. Critical Care Time Critical Care Time Critical Care Time: Yes Total Critical Care Time: 45 Attestation: I attest to this time spent taking care of the patient, obtaining history, physical, reviewing labs, imaging, speaking to my attending, speaking to specialist. Discharge Plan Discharge Clinical Impression: COVID-19, Hypoxemia Patient Disposition: Admitted As Inpatient
[2023-10-17 11:49] LABS: Basophils Absolute Auto 0.1 X10*3/uL (0.0-0.2); Basophils Percent Auto 0.7 % (0-2); Eosinophils Percent Auto 0.3 % (0-4); Hematocrit 32.5 % (42.0-52.0); Imm Gran Pct Auto 1.3 % (0.0-0.4); Lymphocytes Absolute Auto 0.8 X10*3/uL (1.2-4.9); Lymphocytes Percent Auto 10.8 % (20-40); Mean Corpuscular HGB Conc 33.8 g/dl (31.0-36.0); Mean Corpuscular Hemoglobin 35.7 pg (27.0-33.0); Mean Corpuscular Volume 105.5 fL (80.0-98.0); Mean Platelet Volume 11.1 fL (9.4-12.4); Monocytes Absolute Auto 0.5 X10*3/uL (0.1-1.2); Neutrophils Absolute Auto 6.1 x10*3/uL (2.0-8.3); Neutrophils Percent Auto 80.9 % (45-73); Platelet Count 332 X10*3/uL (160-400); Red Blood Count 3.08 X10*6/uL (4.60-5.80); Red Cell Distribution Width 14.9 % (11.0-16.0); White Blood Count 7.5 X10*3/uL (4.8-10.8)
[2023-10-17 11:57] LABS: Alanine Aminotransferase 28 U/L (0-40); Albumin Level 3.6 g/dL (3.5-5.0); Alkaline Phosphatase 75 U/L (39-117); Anion Gap 16 (12-20); Aspartate Amino Transferase 29 U/L (5-37); Bilirubin Total 0.4 mg/dL (0.0-1.0); Blood Urea Nitrogen 17 mg/dL (9-16); Calcium 9.3 mg/dL (8.4-10.2); Carbon Dioxide 23 mmol/L (22-29); Chloride 104 mmol/L (96-108); Creatinine Clr Calc Pharmacy 60.5; Estimated Glomerular Filt Rate > 60; Glucose Random 126 mg/dL (60-115); Magnesium 2.2 mg/dL (1.6-2.6); Potassium 4.8 mmol/L (3.3-5.1); Sodium 138 mmol/L (135-145); Total Protein 7.5 g/dL (6.5-8.0)
--- NOTE | 2023-10-17 11:57 | PC.NURSE ---
a&ox4. vss and up to date. nsr on the cardiac surgeon. pt presents to the ED d/t sob/decreased PO intake/weakness x 3 weeks. pt recently seen for COPD exacerbation. pt was on 86% on RA upon EMS arrival. pt placed on 4L via NC - bringing pt up to 94%. pt uses 2-3L via NC baseline d/t hx of COPD. no sob/wob noted when conversating w/ pt. pt able to speak in full/clear sentences w/o difficulty. respirations even and unlabored. productive cough noted. chest xray performed. EMS placed a 20gIV in the right AC - labs obtained/sent to lab. plan of care ongoing. call costa placed within reach.
[2023-10-17 11:59] LABS: B Type Natriuretic Peptide 21 pg/mL (<100)
[2023-10-17 12:04] LABS: D Dimer High Sensitivity 334 NG/ML
[2023-10-17 12:08] LABS: Troponin-I High Sensitivity 4.9 ng/L (<3.5-35.0)
[2023-10-17 12:23] LABS: Influenza A PCR NEGATIVE (Negative); Influenza B PCR NEGATIVE (Negative); Resp Syncy Virus RNA Qual PCR NEGATIVE (Negative); SARS COV2 PCR INHOUSE POSITIVE (Negative)
[2023-10-17 12:29] LABS: Appearance Urine Clear; Color Urine Dark Yellow; Glucose Urine UA Negative (Negative); Leukocyte Esterase Urine Negative (Negative); Nitrite Urine Negative (Negative); PH 5.5 (5.0-9.0); UMIC TRIGGER UACC YES; Urine Blood Negative (Negative); Urine Ketones Negative (Negative); Urine Protein 30 (1+) mg/dL (Neg-Trace)
[2023-10-17 12:43] LABS: Bacteria Urine None Seen (None Seen); RBC Urine 0-2 /HPF (0-2); Squamous Epithelial Cell Urine 0-2 /HPF (0-2); WBC Urine 0-5 /HPF (0-5)
[2023-10-17] MEDS: 0.9 % Sodium Chloride 500 ML IV (13:08)
[2023-10-17] MEDS: cefTRIAXone sodium 1 GM in 0.9 % Sodium Chloride 50 ML IV (13:15)
[2023-10-17] MEDS: dexAMETHasone sod phosphate 4 MG/ML VIAL 8 MG IVPUSH (13:15)
[2023-10-17] MEDS: Azithromycin 500 MG in 0.9 % Sodium Chloride 250 ML 125 MG IV (13:15)
--- NOTE | 2023-10-17 13:20 | PC.NURSE ---
20gIV placed in the left wrist/forearm. IVF/medication administered per provider order. pt continues to rest in no apparent distress. remains on 2L via NC at 96%. no sob/wob noted. respirations even and unlabored. call costa placed within reach.
--- NOTE | 2023-10-17 13:49 | P.HPHOSP_ITS ---
History of Present Illness Date of Service: 10/17/23 Attending physician on admission: Oz Domínguez Chief Complaint: SOB Pt is a 78-year-old male with a PMH significant for?COPD on 2-3L home O2 prn, HLD, BPH, and arthritis who presents to the ED?with weakness, myalgias, increasing shortness of breath, and productive cough. Patient states symptoms began approximately 3 weeks ago when he became ?sick? with stomach ache, body aches, reduced p.o. intake, alternating fever and chills, and just simply feeling lousy?. Patient did not get evaluated but rested, and found himself getting weaker and eating less and less. SOB and MORGAN increased, as well as increased productive cough. 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 Pt presents today because of increasing symptoms and inability to fully take care of himself at home. Denies chest pain/pressure, palpitations. Denies nausea, vomiting, abdominal pain. In the ED pt was mildly hypertensive at 145/60 and satting as low as 77% on 4L NC during interview and exam. Labs were significant for patient testing positive for COVID, otherwise grossly unremarkable and around baseline for patient. No leukocytosis. Stable H&H. No electrolyte abnormalities. Renal and hepatic function baseline. Troponin and BNP WNL. UA negative for UTI. CXR showed streaky opacities in both lung bases slightly greater on the left, question infiltrate versus atelectasis. EKG demonstrated normal sinus rhythm with sinus arrhythmia, but no evidence of significant ST elevations or depressions. Pt was treated with IVF, ceftriaxone, azithromycin, and dexamethasone. Pt will be admitted to the hospital for treatment and further evaluation of acute hypoxic respiratory failure in the setting of COVID infection with likely superimposed pneumonia. Review of Systems 2 Review of Systems: Increasing SOB, MORGAN Productive cough Generalized weakness Fever, chills, myalgias Reduced p.o. 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 Family History Mother Hypertension Father Hypertension Surgical History History of excision of lesion (~04/17/23) History of repair of rotator cuff History of colon resection (~2001) Social History Alcohol intake: never Patient Tobacco Use Status: Tobacco use Unknown Smoked in Last 30 Days: No Use of substances other than those prescribed or required for medical reasons: No Advance Directives: No Advance Directives Information Provided: No Current occupational status: employed and retired 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 /[employer] Allergies Allergy/AdvReac Type Severity Reaction Status Date / Time No Known Allergies Allergy Mild NONE Verified 10/17/23 11:21 Active Medications: Current Medications Azithromycin 500 mg/ Sodium (Chloride) 250 mls @ 125 mls/hr IV ONCE ONE Stop: 10/17/23 14:43 Last Admin: 10/17/23 13:15 Dose: 125 mls/hr Sodium Chloride (Ns) 500 mls @ 500 mls/hr IV .Q1H ANAID Stop: 10/17/23 13:59 Last Admin: 10/17/23 13:08 Dose: 500 mls/hr Home Medications Medication Instructions Recorded Confirmed Last Taken Type atorvastatin 10 mg tablet 10 mg PO DAILY 06/19/20 05/01/23 Unknown History bupropion HCl 150 mg tablet,12 hr 150 mg PO DAILY 01/02/22 05/01/23 Unknown History sustained-release fentanyl 100 mcg/hr transdermal 1 patch topical Q3D 01/02/22 05/01/23 Unknown History patch albuterol sulfate 90 mcg/actuation 2 puff inhalation Q4H PRN 10/17/23 Unknown History aerosol inhaler Shortness Of Breath Or Wheezing ipratropium 0.5 mg-albuterol 3 mg 1 inhalation QID PRN dyspnea 10/17/23 Unknown History (2.5 mg base)/3 mL nebulization soln prednisone 20 mg tablet 10 mg PO DAILY 10/17/23 Unknown History tamsulosin 0.4 mg capsule 0.4 mg PO DAILY 10/17/23 Unknown History Physical Exam 2 Vital Signs and Narrative: Vital Signs: Last Vital Signs Temp 98.3 F 10/17/23 11:21 Pulse 74 10/17/23 11:21 Resp 16 10/17/23 11:21 BP 145/60 H 10/17/23 11:21 Pulse Ox 88 L 10/17/23 12:46 O2 Del Method Nasal Cannula 10/17/23 12:46 O2 Flow Rate 3 10/17/23 12:46 Oxygen Flow Rate 3 10/17/23 11:21 BMI result Body Mass Index 27.5 Constitutional: Alert, in no acute distress. Mental Status: Oriented to person, place and time. Eyes: Pupils are equal, round, and reactive to light. Ear, Nose, and Throat: Oropharynx clear, mucous membranes moist. Ears and nose without deformities. Trachea midline. Respiratory: Diffuse expiratory wheezing and rhonchi. Cardiovascular: S1, S2 regular. No murmurs, rubs, or gallops. Gastrointestinal: Abdomen soft, non-tender, non-distended. Normal bowel sounds. Neurologic: Cranial nerves II-XII are grossly intact bilaterally. No focal neurological deficits. Moves all extremities spontaneously. Skin: Warm, dry. Musculoskeletal: No cyanosis or clubbing. Extremities: No edema. Psychiatric: Normal mood and affect. Results Labs 10/17/23 11:32 10/17/23 11:32 Labs: Laboratory Results - last 24 hr 10/17/23 10/17/23 11:32 12:21 MCV 105.5 H MCH 35.7 H MCHC 33.8 RDW 14.9 Plt Count 332 D MPV 11.1 Immature Gran % (Auto) 1.3 H Neut % (Auto) 80.9 H Lymph % (Auto) 10.8 L [place] % (Auto) 6.0 Eos % (Auto) 0.3 Baso % (Auto) 0.7 Lymph # (Auto) 0.8 L [place] # (Auto) 0.5 Eos # (Auto) 0.0 Baso # (Auto) 0.1 Abs Immat Gran (auto) 0.10 H Absolute Neuts (auto) 6.1 Absolute Nucleated RBC 0.000 Nucleated RBC % (auto) 0.0 PT 13.5 H INR 1.1 D-Dimer High Sensitivty 334 Anion Gap 16 Estim Creat Clear Calc 60.5 Estimated GFR > 60 Random Glucose 126 H Calcium 9.3 Magnesium 2.2 Total Bilirubin 0.4 AST 29 ALT 28 Alkaline Phosphatase 75 Troponin I High Sens 4.9 B-Natriuretic Peptide 21 Total Protein 7.5 Albumin 3.6 Urine Color Dark Yellow Urine Appearance Clear Urine pH 5.5 Ur Specific [place] 1.020 Urine Protein 30 (1+) H Urine Glucose (UA) Negative Urine Ketones Negative Urine Blood Negative Urine Nitrite Negative Ur Leukocyte Esterase Negative Urine RBC 0-2 Urine WBC 0-5 Ur Squamous Epith Cells 0-2 Urine Bacteria None Seen Hyaline Casts 6-10 Influenza Type A (PCR) NEGATIVE Influenza Type B (PCR) NEGATIVE RSV RNA Qual (PCR) NEGATIVE SARS-CoV-2 RNA (RT-PCR) POSITIVE A Imaging Radiologist's Impressions: Impressions Chest X-Ray 10/17/23 11:28 IMPRESSION: Streaky opacities in both lung bases slightly greater on the left side question infiltrate versus atelectasis. Assessment and Plan (1) Hypoxemia: Status: Acute (2) COVID-19: Status: Acute (3) Pneumonia: Status: Acute Plan Pt is a 78-year-old male with a PMH significant for?COPD on 2-3L home O2 prn, HLD, BPH, and arthritis who presents to the ED?with weakness, myalgias, increasing shortness of breath, and productive cough. Pt will be admitted to the hospital for treatment and further evaluation of acute hypoxic respiratory failure in the setting of COVID infection with likely superimposed pneumonia. Acute hypoxic respiratory failure in the setting of COVID infection with likely superimposed pneumonia Patient with increased SOB, MORGAN, productive cough, fatigue, desatting as low as 77% on 4 L NC, CXR with evidence infiltrate versus atelectasis Patient does not meet sepsis criteria Patient given dexamethasone, IVF, and started on broad-spectrum antibiotics in the ED Will treat with DuoNebs, Solu-Medrol, guaifenesin, ceftriaxone, and azithromycin, started 10/17/2023 Patient on 2-3 L home O2 p.r.n.; titrate supplemental O2>92, wean as tolerated Monitor respiratory status Acute COPD exacerbation In the setting of COVID infection with superimposed pneumonia Treat as above HLD Continue statins BPH Continue tamsulosin Full Code Attending:?Dr. Domínguez DVT Prophylaxis: Lovenox Pt will require a hospitalization of at least two nights for treatment of?acute hypoxic respiratory failure in setting of COVID infection with likely superimposed pneumonia and COPD exacerbation. Given patient's current hypoxia, increased supplemental oxygen demand, and deconditioned state, patient will require hospitalization for administration of IV antibiotics, IV steroids, breathing treatments, and close monitoring of respiratory status. Quality Stroke Does the patient have a stroke diagnosis?: No VTE Prior VTE?: No VTE Risk Level:: Medical - moderate - high VTE Device Contraindication: Treatment Not Indicated VTE Drug Contraindication: N/A - Med Ordered
[2023-10-17] MEDS: Albuterol/Iprat 2.5/0.5MG 3 ML AMPUL.NEB INHALE ×2 (15:14→20:07)
--- NOTE | 2023-10-17 15:29 | PHA.MEDREC ---
Pharmacy Consult ? Medication Reconciliation Pharmacy has completed the medication reconciliation. Patient confirm medications. Reports he last put his fentanyl patch on yesterday evening. Reported no medications today. Daniela Bowden, YolandaD
[2023-10-17] MEDS: Enoxaparin Sodium 40 MG/0.4 ML SYRINGE SUBCUT (17:31)
[2023-10-17] MEDS: methylPREDNISolone Sod Succ 125 MG/2 ML VIAL 60 MG IVPUSH (17:32)
--- NOTE | 2023-10-17 17:34 | PC.NURSE ---
vss and up to date at this time. nsr on the cardiac cath technologist. pt still denies pain. no sob/wob noted while at rest. pt states sx increase upon exertion. pt remains on 3L via NC - resting a 94%. medication administered per provider order. pt continues to wait for bed assignment at this time. plan of care ongoing. call costa placed within reach.
--- NOTE | 2023-10-17 18:56 | PC.NURSE ---
Assumed care of pt. Pt lying on stretcher, no acute distress, respirations even and unlabored. Preparing for admission.
[2023-10-18] VITALS (10 sets, daily range): BP systolic 126–158; BP diastolic 48–72; PULSE 56–91; RESP 16–22; TEMP 36.2–36.9; O2SAT 93–96; BMI 27.3
[2023-10-18] MEDS: methylPREDNISolone Sod Succ 125 MG/2 ML VIAL 60 MG IVPUSH ×4 (00:53→17:44)
[2023-10-18] MEDS: Melatonin 3 MG TABLET 6 MG PO ×2 (01:26→20:01)
[2023-10-18] MEDS: 0.9 % Sodium Chloride Flush 3 ML SYRINGE IVFLUSH ×3 (01:26→16:39)
[2023-10-18] MEDS: Albuterol/Iprat 2.5/0.5MG 3 ML AMPUL.NEB INHALE ×3 (08:22→15:35)
[2023-10-18] MEDS: Azithromycin 500 MG in 0.9 % Sodium Chloride 250 ML 125 MG IV (12:41)
[2023-10-18] MEDS: Atorvastatin Calcium 10 MG TABLET PO (13:37)
[2023-10-18] MEDS: Multivitamin TABLET 1 TAB PO (13:37)
[2023-10-18] MEDS: Cholecalciferol (Vitamin D3) 25 MCG TABLET PO (13:37)
--- NOTE | 2023-10-18 14:01 | HO.PM.IMPN ---
Subjective Subjective Date of Service: 10/18/23 Interval History: Feels somewhat better since admission. Still weak per his own account Review of Systems Denies chest pain Admits shortness of breath that has improved since admission Denies nausea vomiting diarrhea Denies fever chills Physical Exam Vital Signs: Vital Signs: Last Vital Signs Temp 98.5 F 10/18/23 11:16 Pulse 91 10/18/23 11:45 Resp 20 10/18/23 11:45 BP 145/60 H 10/18/23 11:16 Pulse Ox 96 10/18/23 11:16 O2 Del Method Nasal Cannula 10/18/23 11:16 O2 Flow Rate 2 10/18/23 11:16 FiO2 96 10/18/23 11:16 Oxygen Flow Rate 3 10/17/23 11:21 BMI result Body Mass Index 27.3 Const: Other: Awake alert no acute distress Resp: Other: Diminished at bases with scattered expiratory wheezes Cardio: Other: No S4; positive S1-S2; no S3 murmurs rubs or gallops GI: Other: Soft nontender nondistended normoactive bowel sounds Extrem: Other: No edema bilaterally Objective Data Active Medications Acetaminophen (Acetaminophen 325 Mg Tablet) 650 mg PO Q6H PRN PRN Reason: Pain, Mild (Pain Scale 1-3) Albuterol Sulfate (Albuterol Sulfate 90 Mcg 8 Gm Inhaler) 2 puff INHALE Q4H PRN PRN Reason: Shortness Of Breath Or Wheezing Albuterol/Ipratropium (Albuterol/Iprat 2.5/0.5mg 3 Ml Ampul.Neb) 3 ml INHALE RQ4H WHILE AWAKE [facility] Last Admin: 10/18/23 11:42 Dose: 3 ml Documented By: CEZAR Albuterol/Ipratropium (Albuterol/Iprat 2.5/0.5mg 3 Ml Ampul.Neb) 3 ml INHALE TID [facility] Atorvastatin Calcium (Atorvastatin Calcium 10 Mg Tablet) 10 mg PO DAILY [facility] Last Admin: 10/18/23 13:37 Dose: 10 mg Documented By: CHARLES Docusate Sodium (Docusate Sodium 100 Mg Capsule) 100 mg PO DAILY PRN PRN Reason: Constipation Enoxaparin Sodium (Enoxaparin Sodium 40 Mg/0.4 Ml Syringe) 40 mg SUBCUT Q24H [facility] Last Admin: 10/17/23 17:31 Dose: 40 mg Documented By: IZA Fentanyl (Fentanyl 100 Mcg Patch.Td72) 100 mcg TRANSDERMA Q3D@1800 [facility] Fluticasone/Umeclidinium/Vilanterol (Fluticasone/Umeclidinium/Vilanterol 100/62.5/25 Blst.W.Dev) 1 puff INHALE RDAILY [facility] Guaifenesin/Dextromethorphan (Guaifenesin Dm 200/20/10 Ml 10 Ml Syrup) 10 ml PO Q4H PRN PRN Reason: Cough Ceftriaxone Sodium 1 gm/ (Sodium Chloride) 50 mls @ 100 mls/hr IV Q24H ANAID Azithromycin 500 mg/ Sodium (Chloride) 250 mls @ 125 mls/hr IV Q24H [facility] Last Admin: 10/18/23 12:41 Dose: 125 mls/hr Documented By: CHARLES Melatonin (Melatonin 3 Mg Tablet) 6 mg PO BEDTIME PRN PRN Reason: Insomnia Last Admin: 10/18/23 01:26 Dose: 6 mg Documented By: GREGORIO Multivitamins/Vitamin C (Multivitamin Tablet) 1 tab PO DAILY [facility] Last Admin: 10/18/23 13:37 Dose: 1 tab Documented By: CHARLES Non-Formulary Medication (Bupropion Hcl) 150 mg PO DAILY [facility] Prednisone (Prednisone 10 Mg Tablet) 10 mg PO DAILY [facility] Sodium Chloride (0.9 % Sodium Chloride Flush 3 Ml Syringe) 3 ml IVFLUSH QSHIFT [facility] Last Admin: 10/18/23 10:02 Dose: 3 ml Documented By: CHARLES Tamsulosin HCl (Tamsulosin Hcl 0.4 Mg Capsule) 0.4 mg PO BEDTIME [facility] Theophylline (Theophylline Anhydrous Er 400 Mg Tab.Er.24h) 400 mg PO BID [facility] Vitamin D (Cholecalciferol (Vitamin D3) 25 Mcg Tablet) 25 mcg PO DAILY [facility] Last Admin: 10/18/23 13:37 Dose: 25 mcg Documented By: CHARLES Labs 10/17/23 11:32 10/17/23 11:32 Assessment and Plan (1) Acute hypoxic respiratory failure: Status: Acute (2) Pneumonia: Status: Acute (3) COVID-19: Status: Acute Plan Pt is a 78-year-old male with a PMH significant for?COPD on 2-3L home O2 prn, HLD, BPH, and arthritis who presents to the ED?with weakness, myalgias, increasing shortness of breath, and productive cough. Pt will be admitted to the hospital for treatment and further evaluation of acute hypoxic respiratory failure in the setting of COVID infection with likely superimposed pneumonia. 1.Acute hypoxic respiratory failure/ COVID infection/pneumonia -azithromycin/ceftriaxone (2) -add pulse dose methylprednisolone -DuoNebs q.4 hours as needed while awake -titrate O2 to maintain sats greater than or equal to 92% -COVID precautions 2.HLD -Continue statins Full Code Lovenox Will require ongoing hospitalization to treat the require pneumonia with IV antibiotics in the backdrop of COVID-19 infection see Quality Stroke Does the patient have a stroke diagnosis?: No VTE Prior VTE?: No VTE Risk Level:: Medical - moderate - high VTE Device Contraindication: Treatment Not Indicated VTE Drug Contraindication: N/A - Med Ordered
[2023-10-18] MEDS: cefTRIAXone sodium 1 GM in 0.9 % Sodium Chloride 50 ML IV (15:05)
--- NOTE | 2023-10-18 16:08 | MHC.CM.PN ---
Addendum entered by Magnolia Marcano 10/19/23 16:18: PT REPORTS HE LIVES ALONE AND IS INDEPENDENT WITH CARE HE USES NO DME AND HAS ONLY MOW FOR SERVICES COPY OF HCP REQUESTED, PT REPORTS IT IS HIS FRIEND, NOE BOOKER PCP: CHRIS JORGENSEN DELIVERED DCP: HOME NO SERVICES VIA PRIVATE TRANSPORT Original Note: PT ADMITTED WITH COVID, CM ATTEMPTED TO CONTACT PT DIRECTLY VIA T/C TO ROOM EXT [id number], NO ANSWER CM ALSO ATTEMPTED TO REACH PTS PRIMARY CONTACT, NOE BOOKER [phone], ALSO NO ANSWER CM WILL CONTINUE TO TRY TO REACH PT PER EMR, PT LIVES ALONE AND IS INDEPENDENT WITH CARE HE HAS NO HCP ON FILE PCP: CHRIS FLETCHER IMM NOT YET DELIVERED
[2023-10-18] MEDS: Enoxaparin Sodium 40 MG/0.4 ML SYRINGE SUBCUT (17:45)
[2023-10-18] MEDS: fentaNYL 100 MCG PATCH.TD72 TRANSDERMA (17:48)
--- NOTE | 2023-10-18 18:02 | PC.NURSE ---
Fentanyl patch from the right hip that was placed at home was wasted by 2 RN's Christina Kinney
[2023-10-18] MEDS: Tamsulosin HCL 0.4 MG CAPSULE PO (19:56)
[2023-10-18] MEDS: Theophylline Anhydrous ER 400 MG TAB.ER.24H PO (19:56)
[2023-10-19] VITALS (10 sets, daily range): BP systolic 124–157; BP diastolic 50–72; PULSE 63–83; RESP 14–22; TEMP 36.6–37.1; O2SAT 94–98
[2023-10-19] MEDS: methylPREDNISolone Sod Succ 125 MG/2 ML VIAL 60 MG IVPUSH ×4 (02:13→17:21)
[2023-10-19] MEDS: Melatonin 3 MG TABLET 6 MG PO (02:16)
[2023-10-19] MEDS: 0.9 % Sodium Chloride Flush 3 ML SYRINGE IVFLUSH ×3 (02:17→15:14)
[2023-10-19] MEDS: traZODone HCL 25 MG HALFTAB 12.5 MG PO (05:39)
[2023-10-19] MEDS: Multivitamin TABLET 1 TAB PO (08:03)
[2023-10-19] MEDS: Albuterol Sulfate 90 MCG 8 GM INHALER 2 PUFF INHALE (08:03)
[2023-10-19] MEDS: Atorvastatin Calcium 10 MG TABLET PO (08:04)
[2023-10-19] MEDS: Theophylline Anhydrous ER 400 MG TAB.ER.24H PO ×2 (08:04→20:25)
[2023-10-19] MEDS: Cholecalciferol (Vitamin D3) 25 MCG TABLET PO (08:04)
[2023-10-19] MEDS: Fluticasone/Umeclidinium/Vilanterol 100/62.5/25 BLST.W.DEV 1 PUFF INHALE (08:06)
[2023-10-19] MEDS: Albuterol/Iprat 2.5/0.5MG 3 ML AMPUL.NEB INHALE ×4 (08:06→19:50)
[2023-10-19] MEDS: cefTRIAXone sodium 1 GM in 0.9 % Sodium Chloride 50 ML IV (12:11)
--- NOTE | 2023-10-19 12:47 | HO.PM.IMPN ---
Subjective Subjective Date of Service: 10/19/23 Interval History: Slowly responding to therapies; breathing improved but still feels weak Review of Systems Denies chest pain Admits shortness of breath that has improved since admission Denies nausea vomiting diarrhea Denies fever chills Physical Exam Vital Signs: Vital Signs: Last Vital Signs Temp 98.0 F 10/19/23 11:08 Pulse 74 10/19/23 12:11 Resp 20 10/19/23 12:11 BP 124/50 L 10/19/23 11:08 Pulse Ox 94 10/19/23 11:08 O2 Del Method Room Air 10/19/23 11:08 O2 Flow Rate 1 10/19/23 07:31 FiO2 96 10/18/23 11:16 Oxygen Flow Rate 3 10/17/23 11:21 BMI result Body Mass Index 27.3 Const: Other: Awake alert no acute distress Resp: Other: Diminished at bases with scattered expiratory wheezes Cardio: Other: No S4; positive S1-S2; no S3 murmurs rubs or gallops GI: Other: Soft nontender nondistended normoactive bowel sounds Extrem: Other: No edema bilaterally Objective Data Active Medications Acetaminophen (Acetaminophen 325 Mg Tablet) 650 mg PO Q6H PRN PRN Reason: Pain, Mild (Pain Scale 1-3) Albuterol Sulfate (Albuterol Sulfate 90 Mcg 8 Gm Inhaler) 2 puff INHALE Q4H PRN PRN Reason: Shortness Of Breath Or Wheezing Last Admin: 10/19/23 08:03 Dose: 2 puff Documented By: CHARLES Albuterol/Ipratropium (Albuterol/Iprat 2.5/0.5mg 3 Ml Ampul.Neb) 3 ml INHALE RQ4H WHILE AWAKE [facility] Last Admin: 10/19/23 12:11 Dose: 3 ml Documented By: TAWANA Albuterol/Ipratropium (Albuterol/Iprat 2.5/0.5mg 3 Ml Ampul.Neb) 3 ml INHALE TID [facility] Last Admin: 10/19/23 12:12 Dose: Not Given Documented By: TAWANA Non-Admin Reason: Administered by Alternate Route Atorvastatin Calcium (Atorvastatin Calcium 10 Mg Tablet) 10 mg PO DAILY [facility] Last Admin: 10/19/23 08:04 Dose: 10 mg Documented By: CHARLES Docusate Sodium (Docusate Sodium 100 Mg Capsule) 100 mg PO DAILY PRN PRN Reason: Constipation Enoxaparin Sodium (Enoxaparin Sodium 40 Mg/0.4 Ml Syringe) 40 mg SUBCUT Q24H [facility] Last Admin: 10/18/23 17:45 Dose: 40 mg Documented By: MARIBEL Fentanyl (Fentanyl 100 Mcg Patch.Td72) 100 mcg TRANSDERMA Q3D@1800 [facility] Last Admin: 10/18/23 17:48 Dose: 100 mcg Documented By: MARIBEL Fluticasone/Umeclidinium/Vilanterol (Fluticasone/Umeclidinium/Vilanterol 100/62.5/25 Blst.W.Dev) 1 puff INHALE RDAILY [facility] Last Admin: 10/19/23 08:06 Dose: 1 puff Documented By: CEZAR Guaifenesin/Dextromethorphan (Guaifenesin Dm 200/20/10 Ml 10 Ml Syrup) 10 ml PO Q4H PRN PRN Reason: Cough Ceftriaxone Sodium 1 gm/ (Sodium Chloride) 50 mls @ 100 mls/hr IV Q24H [facility] Last Infusion: 10/19/23 12:46 Dose: Infused Documented By: CHARLES Azithromycin 500 mg/ Sodium (Chloride) 250 mls @ 125 mls/hr IV Q24H [facility] Last Infusion: 10/18/23 14:47 Dose: Infused Documented By: MERA Melatonin (Melatonin 3 Mg Tablet) 6 mg PO BEDTIME PRN PRN Reason: Insomnia Last Admin: 10/19/23 02:16 Dose: 6 mg Documented By: ADA Methylprednisolone Sodium Succinate (Methylprednisolone Sod Succ 125 Mg/2 Ml Vial) 60 mg IVPUSH Q6H [facility] Last Admin: 10/19/23 12:10 Dose: 60 mg Documented By: CHARLES Multivitamins/Vitamin C (Multivitamin Tablet) 1 tab PO DAILY [facility] Last Admin: 10/19/23 08:03 Dose: 1 tab Documented By: CHARLES Non-Formulary Medication (Bupropion Hcl) 150 mg PO DAILY [facility] Sodium Chloride (0.9 % Sodium Chloride Flush 3 Ml Syringe) 3 ml IVFLUSH QSHIFT [facility] Last Admin: 10/19/23 08:04 Dose: 3 ml Documented By: CHARLES Tamsulosin HCl (Tamsulosin Hcl 0.4 Mg Capsule) 0.4 mg PO BEDTIME [facility] Last Admin: 10/18/23 19:56 Dose: 0.4 mg Documented By: MARIBEL Theophylline (Theophylline Anhydrous Er 400 Mg Tab.Er.24h) 400 mg PO BID [facility] Last Admin: 10/19/23 08:04 Dose: 400 mg Documented By: CHARLES Trazodone HCl (Trazodone Hcl 25 Mg Halftab) 12.5 mg PO BEDTIME PRN PRN Reason: Insomnia Last Admin: 10/19/23 05:39 Dose: 12.5 mg Documented By: ADA Vitamin D (Cholecalciferol (Vitamin D3) 25 Mcg Tablet) 25 mcg PO DAILY [facility] Last Admin: 10/19/23 08:04 Dose: 25 mcg Documented By: CHARLES Labs 10/17/23 11:32 10/17/23 11:32 Assessment and Plan (1) Acute hypoxic respiratory failure: Status: Acute (2) COVID-19: Status: Acute (3) Pneumonia: Status: Acute Plan Pt is a 78-year-old male with a PMH significant for?COPD on 2-3L home O2 prn, HLD, BPH, and arthritis who presents to the ED?with weakness, myalgias, increasing shortness of breath, and productive cough. Pt will be admitted to the hospital for treatment and further evaluation of acute hypoxic respiratory failure in the setting of COVID infection with likely superimposed pneumonia. 1.Acute hypoxic respiratory failure/ COVID infection/pneumonia -azithromycin/ceftriaxone (3) -add pulse dose methylprednisolone -DuoNebs q.4 hours as needed while awake -titrate O2 to maintain sats greater than or equal to 92% -COVID precautions 2.HLD -Continue statins Full Code Lovenox Will require ongoing hospitalization to treat the require pneumonia with IV antibiotics in the backdrop of COVID-19 infection see Quality Stroke Does the patient have a stroke diagnosis?: No VTE Prior VTE?: No VTE Risk Level:: Medical - moderate - high VTE Device Contraindication: Treatment Not Indicated VTE Drug Contraindication: N/A - Med Ordered
[2023-10-19] MEDS: Azithromycin 500 MG in 0.9 % Sodium Chloride 250 ML 125 MG IV (12:51)
[2023-10-19] MEDS: Enoxaparin Sodium 40 MG/0.4 ML SYRINGE SUBCUT (17:20)
[2023-10-19] MEDS: Acetaminophen 325 MG TABLET 650 MG PO (18:08)
[2023-10-19] MEDS: Tamsulosin HCL 0.4 MG CAPSULE PO (20:25)
[2023-10-20] VITALS (8 sets, daily range): BP systolic 136–166; BP diastolic 67–74; PULSE 61–109; RESP 16–20; TEMP 36.3–36.8; O2SAT 90–98
[2023-10-20] MEDS: 0.9 % Sodium Chloride Flush 3 ML SYRINGE IVFLUSH ×3 (00:23→16:32)
[2023-10-20] MEDS: traZODone HCL 25 MG HALFTAB 12.5 MG PO ×2 (00:24→21:03)
[2023-10-20] MEDS: Melatonin 3 MG TABLET 6 MG PO ×2 (00:24→21:03)
[2023-10-20] MEDS: methylPREDNISolone Sod Succ 125 MG/2 ML VIAL 60 MG IVPUSH ×4 (00:24→16:31)
[2023-10-20 06:53] LABS: Basophils Percent Auto 0.2 % (0-2); Hematocrit 29.1 % (42.0-52.0); Hemoglobin 9.8 g/dl (14.0-18.0); Imm Gran Abs Auto 0.08 X10*3/uL (0.00-0.03); Imm Gran Pct Auto 1.2 % (0.0-0.4); Lymphocytes Absolute Auto 0.4 X10*3/uL (1.2-4.9); Lymphocytes Percent Auto 6.7 % (20-40); MANUAL DIFF FLAG SCAN; Mean Corpuscular HGB Conc 33.7 g/dl (31.0-36.0); Mean Corpuscular Volume 103.9 fL (80.0-98.0); Mean Platelet Volume 10.2 fL (9.4-12.4); Monocytes Absolute Auto 0.1 X10*3/uL (0.1-1.2); Monocytes Percent Auto 1.4 % (2-11); Neutrophils Absolute Auto 5.8 x10*3/uL (2.0-8.3); Neutrophils Percent Auto 90.5 % (45-73); Platelet Count 293 X10*3/uL (160-400); Red Cell Distribution Width 14.8 % (11.0-16.0); SCAN SMEAR FLAG 1; White Blood Count 6.5 X10*3/uL (4.8-10.8)
--- NOTE | 2023-10-20 07:00 | CA_ITS ---
Transthoracic Echocardiogram Patient (Last, First, Middle): Jordy Jenkins, Gender: Male Date of : 1945 Age: 78 Procedure Date: 10/20/2023 Procedure Type: Transthoracic Echocardiogram Location: [facility] [place] Height: 182.88 cm Weight: 91.17 kg BSA: 2.13 m2 Heart Rate: 57 bpm BP: 158 / 72 mmHg [employer]otive Sales Associate: TONIA Referring MD: Burt Arvizu MD Symptoms: SVT Study Quality: Adequate w contrast ECG Rhythm: Bradycardia Conclusions: - The left ventricular systolic function is normal. The calculated ejection fraction is 65% by biplane method. - No obvious valvular pathology seen on this study. Findings Procedure Information Contrast agent, definity, is being given per protocol without apparent complications. Left Ventricle Normal left ventricular cavity size. There is mildly increased left ventricular wall thickness. The left ventricular systolic function is normal. The calculated ejection fraction is 65% by biplane method. There is no evidence of regional wall motion abnormalities. Diastolic function is normal for age. Right Ventricle Normal right ventricular cavity size and systolic function. Atria The left atrium is mildly dilated. The right atrium is normal in size. Aortic Valve The aortic valve structure and function is likely normal. There is no aortic valve stenosis. There is no aortic valve regurgitation. Mitral Valve The mitral valve appears normal. There is trace mitral valve regurgitation. There is no mitral valve stenosis. Pulmonic Valve The pulmonic valve is likely normal. Tricuspid Valve There is trace tricuspid valve regurgitation. There is no evidence of pulmonary hypertension. Great Vessels The aorta was not well visualized. The aortic annulus and sinuses of valsalva are normal in size. Venous The inferior vena cava is dilated and collapses less than 50% with inspiration. Pericardium/Pleural There is no evidence of pericardial effusion. Prior Study Comparison No significant change compared to prior study dated: 01/15/2022. Recommendations, Care & Conclusions No obvious valvular pathology seen on this study. Measurements 2D Linear Measurements IVSd: 1.03 0.6-0.9/0.6-1.0 cm LVIDd: 5.11 3.9-5.3/4.2-5.9 cm LVIDd Index: 2.40 2.4-3.2/2.2-3.1 cm/m2 LVIDs: 3.42 2.0-3.6 cm LVPWd: 1.02 0.7-1.1 cm LA Diam: 3.60 2.7-3.8/3.0-4.0 cm LAIDs Index: 1.69 1.5-2.3 cm/m2 LV Mass: 242.97 67-162/88-224 g LV Mass Index: 114.07 43-95/49-115 g/m2 LVOT Diam: 2.40 3.0+(-)1.3 cm 2D Systolic Function EF 4C: 58.50 >55% EF 2C: 70.50 >55% EF BiP: 65.30 >55% Mitral Valve MV Pk E: 0.82 MV PK A: 0.71 MV Decel Time: 223.00 E/A: 1.20 E'Lateral: 12.00 E'Medial: 10.70 E/E' Med: 7.60 E/E' Lat: 6.80 PHT: 65.00 MVA PHT: 3.38 Decel [place]: 3.67 Aortic Valve AoV Pk [place]queria: 1.90 AoV Mn [place]: 1.37 AoV VTI: 0.44 AoV Pk Grad: 14.00 Aov Mn Grad: 8.00 ALAN Cont.VTI: 3.02 LVOT LVOT Pk [place]: 1.32 LVOT Mn [place]qu[place]: 0.89 LVOT VTI: 0.30 LVOT Pk Grad: 7.00 LVOT Mn Grad: 4.00 LVOT Diam: 2.40 LVOT Area: 4.52 Diastolic Function MV Pk E: 0.82 MV Pk A: 0.71 E/A: 1.20 E'Medial: 10.70 E/E' Med: 7.60 E' Laterial: 12.00 E/E' Lat: 6.80 Right Ventricle TAPSE (mm): 27.00 TVS' [place]: 15.90 Tricuspid Valve TR Pk [place]: 2.51 TR Pk Grad: 25.00 RA Press: 15.00 RVSP: 26.00 Great Vessels Aorta Sinus of Valsalva: 4.00 2.0-3.5 cm Ao Asc: 3.30 2.1-3.4 cm Pulmonary Valve PV Pk [place]queria: 1.22 Peak PV Grad: 6.00 Updated in Other Vendor System with Status of Final Ishmael Karimi MD electronically signed on 10/20/2023 1:18:02 PM with status of Final
[2023-10-20 07:09] LABS: Alanine Aminotransferase 38 U/L (0-40); Albumin Level 3.4 g/dL (3.5-5.0); Alkaline Phosphatase 60 U/L (39-117); Anion Gap 15 (12-20); Aspartate Amino Transferase 21 U/L (5-37); Bilirubin Total 0.2 mg/dL (0.0-1.0); Blood Urea Nitrogen 22 mg/dL (9-16); Calcium 8.9 mg/dL (8.4-10.2); Carbon Dioxide 23 mmol/L (22-29); Chloride 106 mmol/L (96-108); Creatinine Clr Calc Pharmacy 70.3; Estimated Glomerular Filt Rate > 60; Glucose Fasting 197 mg/dL (60-99); Potassium 4.3 mmol/L (3.3-5.1); Sodium 140 mmol/L (135-145); Total Protein 6.6 g/dL (6.5-8.0)
[2023-10-20 07:13] LABS: SLIDE REVIEW VERIFIED
[2023-10-20] MEDS: Albuterol/Iprat 2.5/0.5MG 3 ML AMPUL.NEB INHALE ×2 (07:36→11:16)
[2023-10-20] MEDS: Fluticasone/Umeclidinium/Vilanterol 100/62.5/25 BLST.W.DEV 1 PUFF INHALE (08:02)
[2023-10-20] MEDS: Theophylline Anhydrous ER 400 MG TAB.ER.24H PO ×2 (08:23→21:05)
[2023-10-20] MEDS: Cholecalciferol (Vitamin D3) 25 MCG TABLET PO (08:23)
[2023-10-20] MEDS: Multivitamin TABLET 1 TAB PO (08:23)
[2023-10-20] MEDS: Atorvastatin Calcium 10 MG TABLET PO (08:23)
--- NOTE | 2023-10-20 10:52 | MHC.CM.PN ---
Pt. requiring ongoing acute care for COVID and Pneumonia, DC plan is home, no additional services, CM to follow and assist as needed with DC plan.
--- NOTE | 2023-10-20 11:23 | ECG_ITS ---
Test Reason : Rapid/Chest pain Blood Pressure : / mmHG Vent. Rate : 142 BPM Atrial Rate : 000 BPM P-R Int : 000 ms QRS Dur : 092 ms QT Int : 304 ms P-R-T Axes : 000 003 072 degrees QTc Int : 467 ms Supraventricular tachycardia with occasional Premature ventricular complexes vs Sinus tachycardia Nonspecific ST abnormality Abnormal ECG When compared with ECG of 17-OCT-2023 12:10, Premature ventricular complexes are now Present Vent. rate has increased BY 61 BPM Referred By: Burt Arvizu Electronically Signed By:CALLI CHARLES
--- NOTE | 2023-10-20 11:40 | ECG_ITS ---
Test Reason : rapid response Blood Pressure : / mmHG Vent. Rate : 084 BPM Atrial Rate : 084 BPM P-R Int : 186 ms QRS Dur : 094 ms QT Int : 364 ms P-R-T Axes : 076 002 055 degrees QTc Int : 430 ms Sinus rhythm with Premature supraventricular complexes Otherwise normal ECG When compared with ECG of 20-OCT-2023 11:23, Vent. rate has decreased BY 58 BPM Referred By: Burt Arvizu Electronically Signed By:CALLI CHARLES
[2023-10-20] MEDS: cefTRIAXone sodium 1 GM in 0.9 % Sodium Chloride 50 ML IV (12:06)
[2023-10-20] MEDS: Azithromycin 500 MG in 0.9 % Sodium Chloride 250 ML 125 MG IV (12:11)
[2023-10-20] MEDS: Metoprolol Tartrate 5 MG/5 ML VIAL IVPUSH (12:27)
--- NOTE | 2023-10-20 12:36 | HO.PM.IMPN ---
Subjective Subjective Date of Service: 10/20/23 Interval History: f/u on covid pna, hypoxia interval history still feel ssob, went int svt with HR in 160 ang give IV metoprolol 5 mg and broke Physical Exam Vital Signs: Vital Signs: Last Vital Signs Temp 97.8 F 10/20/23 11:26 Pulse 71 10/20/23 11:26 Resp 18 10/20/23 11:26 BP 158/72 H 10/20/23 11:26 Pulse Ox 96 10/20/23 11:26 O2 Del Method Nasal Cannula 10/20/23 11:26 O2 Flow Rate 1 10/20/23 11:26 FiO2 96 10/18/23 11:16 Oxygen Flow Rate 3 10/17/23 11:21 BMI result Body Mass Index 27.3 General: AO X 3, no acute distress Resp: CTA bilateral CVS: S1,S2,RRR GI: +BS, NT, no distention Skin: No rash Neuro: motor grossly intact Psych: appropriate affect Objective Data Active Medications Acetaminophen (Acetaminophen 325 Mg Tablet) 650 mg PO Q6H PRN PRN Reason: Pain, Mild (Pain Scale 1-3) Last Admin: 10/19/23 18:08 Dose: 650 mg Documented By: CHARLES Albuterol Sulfate (Albuterol Sulfate 90 Mcg 8 Gm Inhaler) 2 puff INHALE Q4H PRN PRN Reason: Shortness Of Breath Or Wheezing Last Admin: 10/19/23 08:03 Dose: 2 puff Documented By: CHARLES Albuterol/Ipratropium (Albuterol/Iprat 2.5/0.5mg 3 Ml Ampul.Neb) 3 ml INHALE RQ4H WHILE AWAKE [facility] Last Admin: 10/20/23 11:16 Dose: 3 ml Documented By: MACARENA Albuterol/Ipratropium (Albuterol/Iprat 2.5/0.5mg 3 Ml Ampul.Neb) 3 ml INHALE TID [facility] Last Admin: 10/20/23 07:42 Dose: Not Given Documented By: MACARENA Non-Admin Reason: Duplicate Order Atorvastatin Calcium (Atorvastatin Calcium 10 Mg Tablet) 10 mg PO DAILY [facility] Last Admin: 10/20/23 08:23 Dose: 10 mg Documented By: DEMETRIO Docusate Sodium (Docusate Sodium 100 Mg Capsule) 100 mg PO DAILY PRN PRN Reason: Constipation Enoxaparin Sodium (Enoxaparin Sodium 40 Mg/0.4 Ml Syringe) 40 mg SUBCUT Q24H [facility] Last Admin: 10/19/23 17:20 Dose: 40 mg Documented By: CHARLES Fentanyl (Fentanyl 100 Mcg Patch.Td72) 100 mcg TRANSDERMA Q3D@1800 [facility] Last Admin: 10/18/23 17:48 Dose: 100 mcg Documented By: MARIBEL Fluticasone/Umeclidinium/Vilanterol (Fluticasone/Umeclidinium/Vilanterol 100/62.5/25 Blst.W.Dev) 1 puff INHALE RDAILY [facility] Last Admin: 10/20/23 08:02 Dose: 1 puff Documented By: JUANI Guaifenesin/Dextromethorphan (Guaifenesin Dm 200/20/10 Ml 10 Ml Syrup) 10 ml PO Q4H PRN PRN Reason: Cough Ceftriaxone Sodium 1 gm/ (Sodium Chloride) 50 mls @ 100 mls/hr IV Q24H [facility] Last Admin: 10/20/23 12:06 Dose: 100 mls/hr Documented By: DEMETRIO Azithromycin 500 mg/ Sodium (Chloride) 250 mls @ 125 mls/hr IV Q24H [facility] Last Admin: 10/20/23 12:11 Dose: 125 mls/hr Documented By: DEMETRIO Melatonin (Melatonin 3 Mg Tablet) 6 mg PO BEDTIME PRN PRN Reason: Insomnia Last Admin: 10/20/23 00:24 Dose: 6 mg Documented By: GUILLERMINA Methylprednisolone Sodium Succinate (Methylprednisolone Sod Succ 125 Mg/2 Ml Vial) 60 mg IVPUSH Q6H [facility] Last Admin: 10/20/23 12:06 Dose: 60 mg Documented By: DEMETRIO Metoprolol Tartrate (Metoprolol Tartrate 25 Mg Tablet) 25 mg PO QID [facility]; Protocol Multivitamins/Vitamin C (Multivitamin Tablet) 1 tab PO DAILY [facility] Last Admin: 10/20/23 08:23 Dose: 1 tab Documented By: DEMETRIO Non-Formulary Medication (Bupropion Hcl) 150 mg PO DAILY [facility] Sodium Chloride (0.9 % Sodium Chloride Flush 3 Ml Syringe) 3 ml IVFLUSH QSHIFT [facility] Last Admin: 10/20/23 08:23 Dose: 3 ml Documented By: DEMETRIO Tamsulosin HCl (Tamsulosin Hcl 0.4 Mg Capsule) 0.4 mg PO BEDTIME [facility] Last Admin: 10/19/23 20:25 Dose: 0.4 mg Documented By: LORRIE Theophylline (Theophylline Anhydrous Er 400 Mg Tab.Er.24h) 400 mg PO BID [facility] Last Admin: 10/20/23 08:23 Dose: 400 mg Documented By: DEMETRIO Trazodone HCl (Trazodone Hcl 25 Mg Halftab) 12.5 mg PO BEDTIME PRN PRN Reason: Insomnia Last Admin: 10/20/23 00:24 Dose: 12.5 mg Documented By: GUILLERMINA Vitamin D (Cholecalciferol (Vitamin D3) 25 Mcg Tablet) 25 mcg PO DAILY [facility] Last Admin: 10/20/23 08:23 Dose: 25 mcg Documented By: DEMETRIO Labs 10/20/23 06:38 10/20/23 06:38 Labs: Laboratory Results - last 24 hr 10/20/23 06:38 MCV 103.9 H MCH 35.0 H MCHC 33.7 RDW 14.8 Plt Count 293 MPV 10.2 Immature Gran % (Auto) 1.2 H Neut % (Auto) 90.5 H Lymph % (Auto) 6.7 L [place] % (Auto) 1.4 L Eos % (Auto) 0.0 Baso % (Auto) 0.2 Lymph # (Auto) 0.4 L [place] # (Auto) 0.1 Eos # (Auto) 0.0 Baso # (Auto) 0.0 Abs Immat Gran (auto) 0.08 H Absolute Neuts (auto) 5.8 Absolute Nucleated RBC 0.000 Nucleated RBC % (auto) 0.0 Smear Tech's Comments VERIFIED Anion Gap 15 Estim Creat Clear Calc 70.3 Estimated GFR > 60 Fasting Glucose 197 H Calcium 8.9 Total Bilirubin 0.2 AST 21 ALT 38 Alkaline Phosphatase 60 Total Protein 6.6 Albumin 3.4 L Assessment and Plan (1) Acute hypoxic respiratory failure: Status: Acute (2) COVID-19: Status: Acute (3) Pneumonia: Status: Acute Plan Pt is a 78-year-old male with a PMH significant for?COPD on 2-3L home O2 prn, HLD, BPH, and arthritis who presents to the ED?with weakness, myalgias, increasing shortness of breath, and productive cough. Pt will be admitted to the hospital for treatment and further evaluation of acute hypoxic respiratory failure in the setting of COVID infection with likely superimposed pneumonia. 1.Acute hypoxic respiratory failure/ COVID infection/pneumonia, cliniclly improving -azithromycin/ceftriaxone (3) -continue solumedrol - change duoneb do xopenex -titrate O2 to maintain sats greater than or equal to 92% -COVID precautions Acute COPD exacerbation In the setting of COVID infection with superimposed pneumonia Treat as above SVT--broke with iv metoprolol, metoprolol 25 mg bid, echo HLD Continue statins BPH Continue tamsulosin Full Code DVT Prophylaxis: Lovenox Pt will r Lovenox need for inpt: hypoxia d/t covid management, SVT management with continuous cardiac monitoring Quality Stroke Does the patient have a stroke diagnosis?: No VTE Prior VTE?: No VTE Risk Level:: Medical - moderate - high VTE Device Contraindication: Treatment Not Indicated VTE Drug Contraindication: N/A - Med Ordered
[2023-10-20] MEDS: Acetaminophen 325 MG TABLET 650 MG PO (14:35)
[2023-10-20] MEDS: oxyCODONE HCl Immed Release 5 MG TABLET PO ×2 (16:30→22:30)
[2023-10-20] MEDS: Metoprolol Tartrate 25 MG TABLET PO (16:31)
[2023-10-20] MEDS: Enoxaparin Sodium 40 MG/0.4 ML SYRINGE SUBCUT (16:31)
[2023-10-20] MEDS: Tamsulosin HCL 0.4 MG CAPSULE PO (21:05)
[2023-10-20] MEDS: Pregabalin 75 MG CAPSULE PO (21:08)
[2023-10-21] VITALS (8 sets, daily range): BP systolic 124–157; BP diastolic 58–77; PULSE 54–105; RESP 18–20; TEMP 36.2–36.8; O2SAT 93–97
[2023-10-21] MEDS: 0.9 % Sodium Chloride Flush 3 ML SYRINGE IVFLUSH ×3 (00:55→15:18)
[2023-10-21] MEDS: methylPREDNISolone Sod Succ 125 MG/2 ML VIAL 60 MG IVPUSH ×2 (00:55→06:17)
[2023-10-21] MEDS: oxyCODONE HCl Immed Release 5 MG TABLET PO ×2 (06:28→12:29)
[2023-10-21] MEDS: Fluticasone/Umeclidinium/Vilanterol 100/62.5/25 BLST.W.DEV 1 PUFF INHALE (08:22)
[2023-10-21] MEDS: Theophylline Anhydrous ER 400 MG TAB.ER.24H PO (08:32)
[2023-10-21] MEDS: Metoprolol Tartrate 50 MG TABLET PO (08:32)
[2023-10-21] MEDS: Cholecalciferol (Vitamin D3) 25 MCG TABLET PO (08:32)
[2023-10-21] MEDS: Atorvastatin Calcium 10 MG TABLET PO (08:32)
[2023-10-21] MEDS: Multivitamin TABLET 1 TAB PO (08:32)
[2023-10-21] MEDS: methylPREDNISolone Sod Succ 125 MG/2 ML VIAL 40 MG IVPUSH (08:43)
--- NOTE | 2023-10-21 11:00 | PM.DS ---
DS: Providers Provider Date of Service: 10/21/23 Date of admission: 10/17/23 14:24 Primary care physician: Nikita Rivera MD DS: Diagnosis Discharge Diagnosis (1) Acute hypoxic respiratory failure: Status: Acute (2) COVID-19: Status: Acute (3) Pneumonia: Status: Acute DS: Summary Hospital Course Hospital Course: admission hpi Chief Complaint: SOB Pt is a 78-year-old male with a PMH significant for?COPD on 2-3L home O2 prn, HLD, BPH, and arthritis who presents to the ED?with weakness, myalgias, increasing shortness of breath, and productive cough. Patient states symptoms began approximately 3 weeks ago when he became ?sick? with stomach ache, body aches, reduced p.o. intake, alternating fever and chills, and just simply feeling lousy?. Patient did not get evaluated but rested, and found himself getting weaker and eating less and less. SOB and MORGAN increased, as well as increased productive cough. 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 Pt presents today because of increasing symptoms and inability to fully take care of himself at home. Denies chest pain/pressure, palpitations. Denies nausea, vomiting, abdominal pain. In the ED pt was mildly hypertensive at 145/60 and satting as low as 77% on 4L NC during interview and exam. Labs were significant for patient testing positive for COVID, otherwise grossly unremarkable and around baseline for patient. No leukocytosis. Stable H&H. No electrolyte abnormalities. Renal and hepatic function baseline. Troponin and BNP WNL. UA negative for UTI. CXR showed streaky opacities in both lung bases slightly greater on the left, question infiltrate versus atelectasis. EKG demonstrated normal sinus rhythm with sinus arrhythmia, but no evidence of significant ST elevations or depressions. Pt was treated with IVF, ceftriaxone, azithromycin, and dexamethasone. Pt will be admitted to the hospital for treatment and further evaluation of acute hypoxic respiratory failure in the setting of COVID infection with likely superimposed pneumonia. Hospital course: The patient presented with shortness of breath and hypoxia, diagnosed with COVID pneumonia exacerbating COPD. A chest X-ray revealed infiltrate vs atelectasis at the bases. Admitted and treated with IV steroids, bronchodilators via Neb, and antibiotics (Ceftriaxone and Azithromycin) for possible pneumonia. Throughout hospitalization, his condition improved significantly, now improved comfort in breathing. Oxygenation also improved, currently saturating at 94% on room air; at home, he uses oxygen at 2 to 3 liters per minute. After 5 days of treatment with Ceftriaxone and Azithromycin, no additional antibiotics are prescribed. Steroids will be continued on chronic basis, along with the usual inhalers and oxygen at home. It's worth noting that the patient experienced an episode of SVT up to 160, terminated with a one-time dose of 5 mg of metoprolol, and will be discharged with oral metoprolol, 25 mg twice daily. An echocardiogram showed a normal EF of 65%, with no valvular pathology or noted wall motion abnormalities. SVT likely related to covid and albuterol Time Attestation Discharge coordination time: Greater than 30 minutes Quality: Safe Use of Opioids Does Pt have an Active Cancer Diagnosis on the Problem List?: No Quality: Stroke Does the patient have a stroke diagnosis?: No Physical Exam Vital Signs: Vital Signs: Last Vital Signs Temp 97.1 F 10/21/23 07:47 Pulse 54 10/21/23 08:23 Resp 18 10/21/23 08:23 BP 157/74 H 10/21/23 07:47 Pulse Ox 96 10/21/23 07:47 O2 Del Method Nasal Cannula 10/21/23 07:47 O2 Flow Rate 1 10/21/23 07:47 FiO2 96 10/18/23 11:16 Oxygen Flow Rate 3 10/17/23 11:21 BMI result Body Mass Index 27.3 General: AO X 3, no acute distress Resp: CTA bilateral CVS: S1,S2,RRR GI: +BS, NT, no distention Skin: No rash Neuro: motor grossly intact Psych: appropriate affect Discharge Plan Discharge Anticipated Discharge Date/Time: 10/21/23 10:59 Patient Disposition: Home, Self-Care Discharge Diagnosis: acute hypoxic respiratory failur, covid pneumonia, copd exacerbation Referrals: Nikita Rivera MD [Primary Care Provider] - 1 Week Discharge Medications: New metoprolol tartrate 25 mg tablet 25 mg PO BID Qty: 60 0RF Continued Trelegy Ellipta 100-62.5-25 mcg blister with device 1 ea inhalation DAILY Qty: 180 2RF ipratropium-albuterol 0.5 mg-3 mg(2.5 mg base)/3 mL solution for nebulization 3 ml inhalation TID tamsulosin 0.4 mg capsule 0.4 mg PO BEDTIME albuterol sulfate 90 mcg/actuation HFA aerosol inhaler 2 puff INHALATION Q4H PRN (Reason: Shortness Of Breath Or Wheezing) prednisone 20 mg tablet 10 mg PO DAILY multivitamin Tablet 1 tab PO DAILY cholecalciferol (vitamin D3) 25 mcg (1,000 unit) Tablet 25 mcg PO DAILY atorvastatin 10 mg tablet 10 mg PO DAILY bupropion HCl 150 mg tablet sustained-release 12 hr 150 mg PO DAILY fentanyl 100 mcg/hr patch 72 hour 1 patch topical Q3D@1800 theophylline 400 mg tablet extended release 24 hr 400 mg PO BID Qty: 60 6RF Discharge Orders: Discharge Order (Routine); Ordered 10/21/23 Ordered By: Burt Arvizu Diet: Advance to usual diet Activity on Discharge: As tolerated Stand Alone Forms: Patient Portal Discharge page Care Plan Goals: full recovery from copd, covid and pneumonia Health Concerns: copd, pneumonia, covid, hypoxia, SVT Plan of Treatment: take prednisone as directed use oxygen as before continue your usual inhalers metoprolol 25 mg twice to control heart rate (SVT), follow up with your doctor in a week, call for appointment Assessment: see above Patient Instructions: Viral Pneumonia (DC), Pneumonia (DC)
[2023-10-21] MEDS: Azithromycin 500 MG in 0.9 % Sodium Chloride 250 ML 125 MG IV (12:07)
[2023-10-21] MEDS: cefTRIAXone sodium 1 GM in 0.9 % Sodium Chloride 50 ML IV (12:08)
[2023-10-21] MEDS: levalbuterol HCL 1.25 MG, Ipratropium Bromide 0.5 MG INHALE ×2 (12:15→15:31)
--- NOTE | 2023-10-21 16:18 | MHC.CM.PN ---
pt has been medically cleared for DC, he will go home via private transport and DC plan is self care.
== END 2023-10-21 16:37 | disposition home or self-care (01) | DRG 177 ==
LOC: HO.ED 12:59 → HO.EDOVER 14:35 → HO.IMC 10-18 00:08
PROVIDERS: Hospitalist; Physician Assistant; Admitting Provider Student in an Organized Health Care Education/Training Program; Emergency Provider Emergency Medicine; PCP Family Medicine; Visit Provider Internal Medicine
DX: U07.1 COVID-19 (principal); J12.82 Pneumonia due to coronavirus disease 2019; J96.01 Acute respiratory failure with hypoxia; J44.0 Chronic obstructive pulmonary disease with (acute) lower respiratory infection; J44.1 Chronic obstructive pulmonary disease with (acute) exacerbation; J98.11 Atelectasis; I47.10 Supraventricular tachycardia, unspecified; E78.5 Hyperlipidemia, unspecified; N40.0 Benign prostatic hyperplasia without lower urinary tract symptoms; Z99.81 Dependence on supplemental oxygen; Z79.51 Long term (current) use of inhaled steroids; Z79.52 Long term (current) use of systemic steroids; Z79.899 Other long term (current) drug therapy
CPT/HCPCS: 0241U; 36415; 71045; 80053; 81001; 83735; 83880; 84484; 85025; 85379; 85610; 93005; 93306; 94640; 94799; 99285; J0456; J0696; J1100; J1650; J2930; Q9957

== ENCOUNTER → 2023-10-17 11:18 | Outpatient (BNV) | payer MEDICARE, MEDICAID, SELFPAY | PROVIDERS: Admitting Provider Student in an Organized Health Care Education/Training Program; Emergency Provider Emergency Medicine; PCP Family Medicine; Visit Provider Internal Medicine Cardiovascular Disease | DX: U07.1 COVID-19 (principal); D53.9 Nutritional anemia, unspecified; R53.1 Weakness | CPT/HCPCS: 93010 ==

== ENCOUNTER 2023-10-17 14:24 | Outpatient (BNV) | payer MEDICARE, MEDICAID, SELFPAY | END 2023-10-20 07:00 | PROVIDERS: Admitting Provider Student in an Organized Health Care Education/Training Program; Emergency Provider Emergency Medicine; PCP Family Medicine; Visit Provider Internal Medicine | DX: R07.9 Chest pain, unspecified (principal) | CPT/HCPCS: 93010; 93306 ==

== ENCOUNTER → 2023-10-17 14:24 | Outpatient (BNV) | payer MEDICARE, MEDICAID, SELFPAY | PROVIDERS: Admitting Provider Student in an Organized Health Care Education/Training Program; Emergency Provider Emergency Medicine; PCP Family Medicine; Visit Provider Student in an Organized Health Care Education/Training Program | DX: J96.01 Acute respiratory failure with hypoxia (principal); U07.1 COVID-19; J18.9 Pneumonia, unspecified organism | CPT/HCPCS: 99223; 99232; 99233; 99238 ==

== ENCOUNTER 2023-11-27 08:01 | Outpatient (REF) | payer MEDICARE, MEDICAID, SELFPAY ==
[2023-11-27 10:18] LABS: MANUAL DIFF FLAG NO
[2023-11-27 10:23] LABS: Basophils Absolute Auto 0.1 X10*3/uL (0.0-0.2); Basophils Percent Auto 1.3 % (0-2); Eosinophils Absolute Auto 0.4 X10*3/uL (0.0-0.4); Eosinophils Percent Auto 5.8 % (0-4); Hematocrit 36.6 % (42.0-52.0); Hemoglobin 11.9 g/dl (14.0-18.0); Imm Gran Abs Auto 0.03 X10*3/uL (0.00-0.03); Imm Gran Pct Auto 0.5 % (0.0-0.4); Lymphocytes Absolute Auto 2.3 X10*3/uL (1.2-4.9); Lymphocytes Percent Auto 38.7 % (20-40); Mean Corpuscular HGB Conc 32.5 g/dl (31.0-36.0); Mean Corpuscular Hemoglobin 35.6 pg (27.0-33.0); Mean Corpuscular Volume 109.6 fL (80.0-98.0); Mean Platelet Volume 11.2 fL (9.4-12.4); Monocytes Absolute Auto 0.6 X10*3/uL (0.1-1.2); Monocytes Percent Auto 9.3 % (2-11); NRBC Pct Auto 0.3 /100WBC (0.0-0.2); Neutrophils Absolute Auto 2.7 x10*3/uL (2.0-8.3); Neutrophils Percent Auto 44.4 % (45-73); Platelet Count 215 X10*3/uL (160-400); Red Blood Count 3.34 X10*6/uL (4.60-5.80)
[2023-11-27 10:53] LABS: Cholesterol 168 mg/dL (<200); Glucose Fasting 119 mg/dL (60-99); HDL Cholesterol 66 mg/dL (>40); LDL Cholesterol Calculated 76 mg/dL (<100); Triglycerides 132 mg/dL (<150)
[2023-11-27 11:59] LABS: Folate 14.3 ng/mL (> or = 4.0); Vitamin B12 1941 pg/mL (200-900)
== END 2023-11-27 08:02 | disposition home or self-care (01) ==
LOC: HO.HMGCLDS 08:01
PROVIDERS: PCP Family Medicine; Visit Provider Family Medicine
DX: D64.9 Anemia, unspecified (principal); E78.00 Pure hypercholesterolemia, unspecified; R73.9 Hyperglycemia, unspecified
CPT/HCPCS: 36415; 80061; 82607; 82746; 82947; 85025

== ENCOUNTER 2024-01-01 09:10 | Outpatient (AMB) | payer MEDICARE, MEDICAID, SELFPAY ==
--- NOTE | 2024-01-01 09:14 | MHC.OFFVIS ---
Intake Visit Reasons: OV - Right Shoulder Injection - Last 03/27/23 Intake Note: Jordy is a 77 year old right hand dominant male who presents today for a follow up of his bilateral shoulder OA. Right Shoulder was injection 03/27/23 . Patient reports that he would like both of his shoulder injected today. Allergies No Known Allergies Allergy (Mild, Verified 01/01/24 09:14) NONE HPI HPI OV - Right Shoulder Injection - Last 03/27/23: Details: Jordy is a 77 year old right hand dominant male who presents today for a follow up of his bilateral shoulder rotator cuff arthropathy. He is active and works in a [employer]. He has benefitted from injections of the shoulders in the past. We have discussed his diagnosis and he understands that treatment options are limited. He also complains of right elbow pain that is intermittent at times it is severe but currently it is minimally painful. [facility] Medical History HLD (hyperlipidemia) Osteoarthritis BPH (benign prostatic hyperplasia) Skin lesion of back Chronic obstructive pulmonary disease, unspecified Diverticulosis of large intestine without perforation or abscess without bleeding 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 Surgical History History of excision of lesion (~04/17/23) History of repair of rotator cuff History of colon resection (~2001) Family History Mother Hypertension Father Hypertension Social History Household Members: None Housing: House Do you presently have visiting nurse or other home services: No Alcohol intake: never Patient Tobacco Use Status: Never used Tobacco Current occupational status: employed and retired 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 10 degree loss of terminal extension. Negative dynamic resisted wrist extension. Psych Appearance: grossly normal Affect: normal affect Attitude: cooperative Office Procedures Joint Injection/Drain Joint Injection/Drain Details: Injected 1 mL of Decadron and 3 mL 1% lidocaine and 3 mL of 0.25% Marcaine. Site was prepped using aseptic technique. Patient tolerated the procedure well. [place] Primary Site: right shoulder Secondary Site: left shoulder Approach Used: posterolateral Coding 65472 - Large joint 93719 - Glenohumeral/Tronchanteric Bursa/Intraarticular Procedure code (CPT) selection complete Results Reviewed Results Reviewed: I personally reviewed relevant radiographs. Moderate to severe arthritis of the right elbow Assessment & Plan Assessment & Plan (1) Rotator cuff tear arthropathy of both shoulders: Code(s): M75.101 - Unspecified rotator cuff tear or rupture of right shoulder, not specified as traumatic; M12.811 - Other specific arthropathies, not elsewhere classified, right shoulder; M12.812 - Other specific arthropathies, not elsewhere classified, left shoulder; M75.102 - Unspecified rotator cuff tear or rupture of left shoulder, not specified as traumatic Category: Medical Plan: This is a 78-year-old gentleman with bilateral rotator cuff arthropathy. I injected both shoulders today. He can return in know sooner in 3 months for repeat injections. He is not interested in surgery at this time. (2) Primary osteoarthritis, right elbow: Code(s): M19.021 - Primary osteoarthritis, right elbow Category: Medical Plan: Right elbow osteoarthritis. Elbow are osteoarthritis does not respond well to surgical treatment especially given his activity level. Injections may help but at this time his pain is minimal I recommend that he treat this with activity modification. Plan I injected his bilateral shoulders today, he may return no sooner than 3 months for repeat injections. XR of Elbow Orders: Orders XR elbow RT 2V Today M25.529 - Pain in unspecified elbow Coding Level of Care Code Est Pt Level 4 (84219) Diagnoses Rotator cuff tear arthropathy of both shoulders M75.101; M12.811; M12.812; M75.102 Primary osteoarthritis, right elbow M19.021 CPT Codes Coding - Large joint: 45814 - Large joint ([id number]) Coding - Joint 7: 64111 - Glenohumeral/Tronchanteric Bursa/Intraarticular ([id number])
== END 2024-01-01 09:59 | disposition home or self-care (01) ==
PROVIDERS: PCP Family Medicine; Visit Provider Orthopaedic Surgery
DX: M75.101 Unspecified rotator cuff tear or rupture of right shoulder, not specified as traumatic (principal); M12.811 Other specific arthropathies, not elsewhere classified, right shoulder; M12.812 Other specific arthropathies, not elsewhere classified, left shoulder; M75.102 Unspecified rotator cuff tear or rupture of left shoulder, not specified as traumatic; M19.021 Primary osteoarthritis, right elbow
CPT/HCPCS: 20610; 99213

== ENCOUNTER 2024-01-01 09:10 | Outpatient (REF) | payer MEDICARE, MEDICAID, SELFPAY ==
--- NOTE | ~2024-01-01 | XR_ITS ---
EXAMINATION: XR ELBOW, RIGHT CLINICAL INFORMATION: Pain in unspecified elbow. COMPARISON: None available. TECHNIQUE: AP, lateral, and oblique views of the right elbow. FINDINGS: The bones are diffusely demineralized. No significant joint effusion. Advanced degenerative changes with hypertrophic change and joint space narrowing at the elbow. Small spur along the dorsal aspect of the olecranon. XR/XR elbow RT 2V IMPRESSION: Advanced degenerative changes at the elbow. Recommend follow-up imaging in 10-14 days if fracture is suspected.
== END 2024-01-01 09:11 | disposition home or self-care (01) ==
LOC: HO.HOSX 09:10
PROVIDERS: PCP Family Medicine; Visit Provider Orthopaedic Surgery
DX: M75.101 Unspecified rotator cuff tear or rupture of right shoulder, not specified as traumatic (principal); M75.102 Unspecified rotator cuff tear or rupture of left shoulder, not specified as traumatic; M12.811 Other specific arthropathies, not elsewhere classified, right shoulder; M12.812 Other specific arthropathies, not elsewhere classified, left shoulder
CPT/HCPCS: 20610; 73070; 99212; J0665; J1100

== ENCOUNTER 2024-01-07 11:11 | Inpatient (IN) | payer MEDICARE, OTHER, SELFPAY ==
[2024-01-07] VITALS (8 sets, daily range): BP systolic 106–137; BP diastolic 46–67; PULSE 60–84; RESP 12–21; TEMP 36.1–37.1; O2SAT 85–99; BMI 26.9
--- NOTE | ~2024-01-07 | XR_ITS ---
EXAMINATION: XR CHEST CLINICAL INFORMATION: Shortness of breath COMPARISON: Prior chest December 2023 TECHNIQUE: Frontal view of the chest was obtained. FINDINGS: Lungs clear. Previously noted left lower lobe opacity has cleared. Cardiomediastinal silhouette normal. Bone and soft tissues unremarkable. XR/XR chest 1V IMPRESSION: No acute disease.
--- NOTE | ~2024-01-07 | XR_ITS ---
EXAMINATION: XR CHEST CLINICAL INFORMATION: Hypoxia. COMPARISON: 01/07/2024, 10/17/2023. TECHNIQUE: Single AP upright portable view of the chest was obtained. FINDINGS: Stable cardiomediastinal silhouette. Heart size is normal. Lung volumes are low. There is no gross pneumothorax. Evaluation limited due to patient rotation. Mild bibasilar opacities are characteristic of atelectasis, although an infectious/inflammatory process could also be considered in the appropriate clinical setting. XR/XR chest 1V IMPRESSION: Mild bibasilar opacities are characteristic of atelectasis, although an infectious/inflammatory process could also be considered in the appropriate clinical setting. This study was presented today, 01/13/2024, for interpretation. Stat results provided at this time as requested by referring provider.
--- NOTE | 2024-01-07 11:38 | ECG_ITS ---
Test Reason : SOB Blood Pressure : / mmHG Vent. Rate : 083 BPM Atrial Rate : 083 BPM P-R Int : 156 ms QRS Dur : 092 ms QT Int : 356 ms P-R-T Axes : 085 013 041 degrees QTc Int : 418 ms Sinus rhythm with Premature supraventricular complexes Septal infarct , age undetermined Abnormal ECG When compared with ECG of 20-OCT-2023 11:40, No significant change was found Referred By: Generic ED Physician Electronically Signed By:MELLISA RICCI MD
[2024-01-07] MEDS: Albuterol Sulfate 2.5 MG, Albuterol/Iprat 2.5/0.5MG 3 ML 3 ML INHALE (11:39)
[2024-01-07 11:40] LABS: MANUAL DIFF FLAG NO
[2024-01-07 11:44] LABS: Basophils Absolute Auto 0.1 X10*3/uL (0.0-0.2); Eosinophils Percent Auto 14.5 % (0-4); Hemoglobin 11.7 g/dl (14.0-18.0); Imm Gran Abs Auto 0.03 X10*3/uL (0.00-0.03); Imm Gran Pct Auto 0.4 % (0.0-0.4); Lymphocytes Absolute Auto 1.3 X10*3/uL (1.2-4.9); Lymphocytes Percent Auto 17.7 % (20-40); Mean Corpuscular HGB Conc 33.4 g/dl (31.0-36.0); Mean Corpuscular Hemoglobin 34.3 pg (27.0-33.0); Mean Corpuscular Volume 102.6 fL (80.0-98.0); Mean Platelet Volume 10.6 fL (9.4-12.4); Monocytes Absolute Auto 0.9 X10*3/uL (0.1-1.2); Monocytes Percent Auto 13.2 % (2-11); Neutrophils Absolute Auto 3.8 x10*3/uL (2.0-8.3); Neutrophils Percent Auto 53.2 % (45-73); Platelet Count 285 X10*3/uL (160-400); Red Blood Count 3.41 X10*6/uL (4.60-5.80); White Blood Count 7.1 X10*3/uL (4.8-10.8)
[2024-01-07 11:48] LABS: INTERNATIONAL NORM RATIO 1.2 (0.9-1.1); Prothrombin Time 14.4 SEC (11.1-13.3)
[2024-01-07 11:57] LABS: Alanine Aminotransferase 25 U/L (0-40); Albumin Level 3.7 g/dL (3.5-5.0); Alkaline Phosphatase 64 U/L (39-117); Anion Gap 15 (12-20); Aspartate Amino Transferase 25 U/L (5-37); Bilirubin Total 0.6 mg/dL (0.0-1.0); Blood Urea Nitrogen 17 mg/dL (9-16); Calcium 9.3 mg/dL (8.4-10.2); Carbon Dioxide 27 mmol/L (22-29); Chloride 98 mmol/L (96-108); Creatinine Clr Calc Pharmacy 49.9; Estimated Glomerular Filt Rate 50; Glucose Random 149 mg/dL (60-115); Potassium 3.7 mmol/L (3.3-5.1); Sodium 136 mmol/L (135-145); Total Protein 7.2 g/dL (6.5-8.0)
[2024-01-07 12:04] LABS: Troponin-I High Sensitivity 7.2 ng/L (<3.5-35.0)
--- NOTE | 2024-01-07 12:04 | ED.GENADULT ---
HPI - General Adult General Chief complaint: Dyspnea Stated complaint: SOB,87% ON DUONEB PER EMS Time Seen by Provider: 01/07/24 12:03 History of Present Illness HPI narrative: This is a 78-year-old man with past medical history of COPD on 2 3 liters/minute home supplemental oxygen as needed, hyperlipidemia, BPH arthritis who presents by EMS for evaluation dyspnea. Patient reports dyspnea over the last 4-5 days. He reports increased cough frequency and sputum production. He states no fevers, but states experiencing chills. He states no chest pain or back pain. He states no abdominal pain, nausea or vomiting. It states no headache or neck pain. He states no trauma or falls. He states no changes in his bowel habits or urinary symptoms. He states no known sick contacts. Related Data Home Medications ?Medication ?Instructions ?Recorded ?Confirmed atorvastatin 10 mg tablet 10 mg PO DAILY 06/19/20 01/07/24 bupropion HCl 150 mg tablet,12 hr 150 mg PO DAILY 01/02/22 01/07/24 sustained-release fentanyl 100 mcg/hr transdermal 1 patch topical Q3D@1800 01/02/22 01/07/24 patch albuterol sulfate 90 mcg/actuation 2 puff inhalation Q4H PRN 10/17/23 01/07/24 aerosol inhaler Shortness Of Breath Or Wheezing cholecalciferol (vitamin D3) 25 25 mcg PO DAILY 10/17/23 01/07/24 mcg (1,000 unit) tablet multivitamin 1 tab PO DAILY 10/17/23 01/07/24 prednisone 20 mg tablet 10 mg PO DAILY 10/17/23 01/07/24 tamsulosin 0.4 mg capsule 0.4 mg PO BEDTIME 10/17/23 01/07/24 ipratropium 0.5 mg-albuterol 3 mg 1 ml inhalation QID PRN dyspnea 01/07/24 01/07/24 (2.5 mg base)/3 mL nebulization soln latanoprostene bunod 0.024 % eye 1 drp ophthalmic (eye) BEDTIME 01/07/24 01/07/24 drops (Vyzulta) [id number] 3.5 2 drp otic (ears) QID PRN Wax/ 01/07/24 01/07/24 mg/mL-10,000 unit/mL-1 % ear infection solution pregabalin 75 mg capsule 75 - 150 mg PO QAM 01/07/24 01/07/24 pyridoxine (vitamin B6) 50 mg 50 mg PO DAILY 01/07/24 01/07/24 capsule (Vitamin B-6) triamcinolone acetonide 0.1 % 1 appl topical DAILY PRN Rash 01/07/24 01/07/24 topical cream Previous Rx's ?Medication ?Instructions ?Recorded fluticasone fur. 100 mcg-umeclid 1 ea inhalation DAILY #180 ea 09/01/23 62.5 mcg-vilant 25 mcg inhalat.powder (Trelegy Ellipta) theophylline 400 mg 400 mg PO BID #60 tabs 09/02/23 tablet,extended release 24 hr Allergies Allergy/AdvReac Type Severity Reaction Status Date / Time No Known Allergies Allergy Mild NONE Verified 01/07/24 11:27 Review of Systems Review of Systems: ROS as per HPI [facility] Past Medical History Medical History HLD (hyperlipidemia) Osteoarthritis BPH (benign prostatic hyperplasia) Skin lesion of back Chronic obstructive pulmonary disease, unspecified Diverticulosis of large intestine without perforation or abscess without bleeding 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 Surgical History History of excision of lesion (~04/17/23) History of repair of rotator cuff History of colon resection (~2001) Family History Family History Mother Hypertension Father Hypertension Social History Social History Household Members: None Housing: House Do you presently have visiting nurse or other home services: No Alcohol intake: never Patient Tobacco Use Status: Never used Tobacco Smoked in Last 30 Days: No Use of substances other than those prescribed or required for medical reasons: No Advance Directives: Yes Advance Directives Information Provided: No Advance Directives on File: No Do you have a plan to hurt others: No Plan Nutrition Risks: No Nutritional Risk Current occupational status: employed and retired 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 /[employer] Physical Exam ED Vital Signs: Vital Signs - 24 hr 01/07/24 11:24 01/07/24 11:44 01/07/24 13:18 Temperature 98.6 F 98.8 F Pulse Rate 80 67 75 Respiratory Rate 15 21 H 14 Blood Pressure 137/64 127/52 L Pulse Oximetry 99 99 Oxygen Delivery Method Nasal Cannula Nasal Cannula Oxygen Flow Rate 1.5 BMI result Body Mass Index 26.9 Gen: NAD, AOx3 HEENT: NCAT, EOMI, normal conjunctiva CV: RRR Pulm: Scattered expiratory wheezes, respiratory distress, no crackles or rhonchi GI: Soft, NTND, no rebound, guarding or rigidity MSK: No bilateral lower extremity pitting edema, calf edema/erythema/tenderness to palpation Neuro: Grossly non focal Medications Administered Generic Name Dose Route Start Last Admin Trade Name Freq PRN Reason Stop Dose Admin Albuterol/Ipratropium 3 ml 01/07/24 16:00 01/07/24 15:38 Albuterol/Iprat 2.5/0.5mg 3 Ml Ampul.Neb INHALE 3 ml RQ4H WHILE AWAKE ANAID Administration Enoxaparin Sodium 40 mg 01/07/24 16:00 01/07/24 15:48 Enoxaparin Sodium 40 Mg/0.4 Ml Syringe SUBCUT 40 mg Q24H ANAID Administration Sodium Chloride 3 ml 01/07/24 16:00 01/07/24 15:50 0.9 % Sodium Chloride Flush 3 Ml Syringe IVFLUSH 3 ml QSHIFT ANAID Administration Discontinued Medications Generic Name Dose Route Start Last Admin Trade Name Freq PRN Reason Stop Dose Admin Albuterol Sulfate 2.5 mg/ 0 mg 01/07/24 11:36 01/07/24 11:39 Albuterol/Ipratropium 3 ml INHALE 01/07/24 11:37 5 dose ONCE ONE Administration Lactated Ringer's 1,000 mls @ 999 mls/hr 01/07/24 12:29 01/07/24 14:22 Lr IV 01/07/24 13:29 Infused .Q1H1M ONE Infusion Cefepime HCl 1 gm/ Sodium 50 mls @ 100 mls/hr 01/07/24 12:29 01/07/24 13:40 Chloride IV 01/07/24 12:58 Infused ONCE ONE Infusion Azithromycin 500 mg/ Sodium 250 mls @ 125 mls/hr 01/07/24 12:29 01/07/24 15:52 Chloride IV 01/07/24 14:28 Infused ONCE ONE Infusion Methylprednisolone Sodium Succinate 125 mg 01/07/24 12:29 01/07/24 13:10 Methylprednisolone Sod Succ 125 Mg/2 Ml Vial IVPUSH 01/07/24 12:30 125 mg ONCE ONE Administration Medical Decision Making Medical Decision Making [facility] Narrative: Differential diagnosis includes, but is not limited to COPD exacerbation, pneumonia, viral upper respiratory tract infection. Patient is afebrile and hemodynamically stable. He is found to have increased oxygen requirement of 4 liters/minute. Exam is notable for expiratory wheezes. This is not sepsis. I reviewed and interpreted labs, which are notable for baseline anemia with hemoglobin 11.7 (previous 11.9). Further, BUN 17 and creatinine 1.38 (previous 0.98) are mildly elevated inconsistent with acute kidney injury for which patient is provided 1L IV LR. Labs otherwise are reassuring. I reviewed and interpreted EKG as above, which is unremarkable for any acute findings. EKG shows sinus rhythm at 83 beats per minute, normal axis, MD 156, QRS 92, QTC 418, no ST/T-wave changes, no STEMI (compared to previous EKG October 20 there are no diagnostic ischemic changes, T-wave inversion in lead V2 and biphasic T-wave in V3 have resolved). Troponin is minimally elevated 7.2. I have very low clinical suspicion for ACS given history, EKG and troponin. Given history, exam, increased oxygen, recent admission September 2023 receiving treatment with IV antibiotics, will treat for COPD exacerbation and pneumonia with azithromycin and cefepime. I will also provide methylprednisolone and nebulized bronchodilators for treatment of COPD. I reviewed and interpreted chest x-ray, which is not demonstrate any focal infiltrate, lobar consolidation, pneumothorax or widened mediastinum. Viral testing is negative for COVID-19, influenza and RSV. Patient admitted to hospitalist Dr. Allison Cisneros at 1328 on 01/07/2024 for further work up and management COPD exacerbation. Admission/Observation Consideration of admission/observation: Escalation of care including admission/observation considered Consult Healthcare Provider Management of the patient was discussed with: Hospitalist Lab Data [facility] Lab Attestation statement: I reviewed the patient's lab results. 01/07/24 11:37 01/07/24 11:37 Labs: Lab Results 01/07/24 01/07/24 Range/Units 11:37 13:02 WBC 7.1 (4.8-10.8) X10*3/uL RBC 3.41 L (4.60-5.80) X10*6/uL Hgb 11.7 L (14.0-18.0) g/dl Hct 35.0 L (42.0-52.0) % MCV 102.6 H (80.0-98.0) fL MCH 34.3 H (27.0-33.0) pg MCHC 33.4 (31.0-36.0) g/dl RDW 15.0 (11.0-16.0) % Plt Count 285 D (160-400) X10*3/uL MPV 10.6 (9.4-12.4) fL Immature Gran % (Auto) 0.4 (0.0-0.4) % Neut % (Auto) 53.2 (45-73) % Lymph % (Auto) 17.7 L (20-40) % Loup % (Auto) 13.2 H (2-11) % Eos % (Auto) 14.5 H (0-4) % Baso % (Auto) 1.0 (0-2) % Lymph # (Auto) 1.3 (1.2-4.9) X10*3/uL Loup # (Auto) 0.9 (0.1-1.2) X10*3/uL Eos # (Auto) 1.0 H (0.0-0.4) X10*3/uL Baso # (Auto) 0.1 (0.0-0.2) X10*3/uL Abs Immat Gran (auto) 0.03 (0.00-0.03) X10*3/uL Absolute Neuts (auto) 3.8 (2.0-8.3) x10*3/uL Absolute Nucleated RBC 0.000 (0.0-0.012) X10*3/uL Nucleated RBC % (auto) 0.0 (0.0-0.2) /100WBC PT 14.4 H (11.1-13.3) SEC INR 1.2 H (0.9-1.1) APTT 28.0 (26.0-36.8) SEC Sodium 136 (135-145) mmol/L Potassium 3.7 (3.3-5.1) mmol/L Chloride 98 (96-108) mmol/L Carbon Dioxide 27 (22-29) mmol/L Anion Gap 15 (12-20) BUN 17 H (9-16) mg/dL Creatinine 1.38 (0.5-1.4) mg/dL Estim Creat Clear Calc 49.9 Estimated GFR 50 Random Glucose 149 H (60-115) mg/dL Lactic Acid 0.9 (0.5-2.0) mmol/L Calcium 9.3 (8.4-10.2) mg/dL Magnesium 2.0 (1.6-2.6) mg/dL Total Bilirubin 0.6 (0.0-1.0) mg/dL AST 25 (5-37) U/L ALT 25 (0-40) U/L Alkaline Phosphatase 64 (39-117) U/L Troponin I High Sens 7.2 (<3.5-35.0) ng/L Total Protein 7.2 (6.5-8.0) g/dL Albumin 3.7 (3.5-5.0) g/dL Influenza Type A (PCR) NEGATIVE (Negative) Influenza Type B (PCR) NEGATIVE (Negative) RSV RNA Qual (PCR) NEGATIVE (Negative) SARS-CoV-2 RNA (RT-PCR) NEGATIVE (Negative) Independent Interpretation I performed an independent interpretation of an: EKG Interpretation: EKG shows sinus rhythm at 83 beats per minute, normal axis, MD 156, QRS 92, QTC 418, no ST/T-wave changes, no STEMI (compared to previous EKG October 20 there are no diagnostic ischemic changes, T-wave inversion in lead V2 and biphasic T-wave in V3 have resolved) Radiology Impression Discussion of test interpretation with radiology: I have reviewed the radiologist's reading. Radiologist Impression: FINDINGS: Lungs clear. Previously noted left lower lobe opacity has cleared. Cardiomediastinal silhouette normal. Bone and soft tissues unremarkable. XR/XR chest 1V IMPRESSION: No acute disease. Dictated By: Lc Hernandez MD Signed By: <Electronically signed by Lc Hernandez MD in [place]> 01/07/24 [id number] Discharge Plan Discharge Clinical Impression: Asthma exacerbation in COPD, Community acquired pneumonia Patient Disposition: Admitted As Inpatient
[2024-01-07 12:44] LABS: Influenza A PCR NEGATIVE (Negative); Influenza B PCR NEGATIVE (Negative); Resp Syncy Virus RNA Qual PCR NEGATIVE (Negative); SARS COV2 PCR INHOUSE NEGATIVE (Negative)
[2024-01-07] MEDS: cefEPime HCl 1 GM in 0.9 % Sodium Chloride 50 ML IV (13:10)
[2024-01-07] MEDS: Lactated Ringers 1,000 ML 999 ML IV (13:10)
[2024-01-07] MEDS: methylPREDNISolone Sod Succ 125 MG/2 ML VIAL IVPUSH (13:10)
[2024-01-07 13:18] LABS: Lactic Acid 0.9 mmol/L (0.5-2.0)
[2024-01-07] MEDS: Azithromycin 500 MG in 0.9 % Sodium Chloride 250 ML 125 MG IV (13:40)
--- NOTE | 2024-01-07 15:32 | PHA.MEDREC ---
Pharmacy Consult ? Medication Reconciliation Pharmacy has completed the medication reconciliation. Spoke to patient to confirm medications, he also brought in a list with him. Patient states he is taking Pregabalin 1-2 tabs in the morning depending on how hes feeling. Patient states he has a fent patch on currently (says he is due for one today) and does apply one every 3 days. Patient also states he is taking Vitamin B-6 once daily, confirmed with [facility] however last fruit picker was in July for a 60 DS. Patient states he does not take metoprolol tartrate. He also reports only having one eye drop which is the Vyzulta.
[2024-01-07] MEDS: Albuterol/Iprat 2.5/0.5MG 3 ML AMPUL.NEB INHALE (15:38)
[2024-01-07] MEDS: Enoxaparin Sodium 40 MG/0.4 ML SYRINGE SUBCUT (15:48)
[2024-01-07] MEDS: 0.9 % Sodium Chloride Flush 3 ML SYRINGE IVFLUSH ×2 (15:50→23:47)
--- NOTE | 2024-01-07 16:55 | P.HPHOSP_ITS ---
History of Present Illness Date of Service: 01/07/24 Attending physician on admission: Justin Tom Chief Complaint: SOB, cough, fatigue Pt is a 78-year-old male with a PMH significant for?COPD on 2-3L home O2 prn, HLD, BPH, chronic lower back pain, and arthritis who presents to the ED for evaluation of SOB, difficulty breathing, productive cough, and generalized weakness x3-4 days. Pt reports symptoms began this past weekend on Friday/Friday when he began experiencing a ?heavy cough with ?heavy? phlegm. Has had increased weakness and fatigue, SOB and difficultly breathing. Reports chest tightness associated with cough. Subjective fever and chills. No chest pain or palpitations. Denies N/V/D or abdominal pain. Patient has been increasingly using his home inhalers with minimal relief and wearing his prn O2 throughout most of the day. Reports chronically sleeps with 2.5L NC as night. In the ED pt was tachypneic up to 21, with soft BP as low, and hypoxic as low as 88% on RA. Labs were significant for stable chronic macrocytic anemia 11.7/35.0 and creatinine 1.38 (baseline around 1.10), otherwise grossly unremarkable. No leukocytosis. No significant electrolyte abnormalities. Tested negative for COVID, flu, RSV. CXR showed no acute disease. EKG demonstrated sinus rhythm with premature supraventricular complexes, but no evidence significant ST elevations or depressions. Pt was treated with DuoNeb, IVF, Solu-Medrol, cefepime, and azithromycin. Pt will be admitted to the hospital for treatment further evaluation of acute hypoxic respiratory failure in the setting of COPD exacerbation with likely superimposed pneumonia. Review of Systems 2 Review of Systems: SOB Productive cough Increased fatigue, malaise Chest tightness associated with cough Subjective fever and chills No chest pain, palpitations No nausea, vomiting, diarrhea, abdominal pain PMFSH Medical History HLD (hyperlipidemia) Osteoarthritis BPH (benign prostatic hyperplasia) Skin lesion of back Chronic obstructive pulmonary disease, unspecified Diverticulosis of large intestine without perforation or abscess without bleeding 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 Family History Mother Hypertension Father Hypertension Surgical History History of excision of lesion (~04/17/23) History of repair of rotator cuff History of colon resection (~2001) Social History Household Members: None Housing: House Do you presently have visiting nurse or other home services: Yes (Meals on wheels) Alcohol intake: never Patient Tobacco Use Status: Former Tobacco user Quit Date: 2018 Tobacco use type: Cigarette service: No Current occupational status: employed and retired 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 /[employer] Meds Allergies Allergy/AdvReac Type Severity Reaction Status Date / Time No Known Allergies Allergy Mild NONE Verified 01/07/24 11:27 Active Medications: Current Medications Acetaminophen (Acetaminophen 325 Mg Tablet) 650 mg PO Q6H PRN PRN Reason: Fever, mild pain, or headache Albuterol/Ipratropium (Albuterol/Iprat 2.5/0.5mg 3 Ml Ampul.Neb) 3 ml INHALE RQ4H WHILE AWAKE [facility] Last Admin: 01/07/24 15:38 Dose: 3 ml Atorvastatin Calcium (Atorvastatin Calcium 10 Mg Tablet) 10 mg PO DAILY [facility] Benzonatate (Benzonatate 100 Mg Capsule) 100 mg PO TID PRN PRN Reason: Cough Calcium Carbonate (Calcium Carbonate 750 Mg Tab.Chew) 750 mg PO Q6H PRN PRN Reason: Heartburn Enoxaparin Sodium (Enoxaparin Sodium 40 Mg/0.4 Ml Syringe) 40 mg SUBCUT Q24H [facility] Last Admin: 01/07/24 15:48 Dose: 40 mg Fentanyl (Fentanyl 100 Mcg Patch.Td72) 100 mcg TRANSDERMA Q3D@1999 [facility] Fluticasone/Umeclidinium/Vilanterol (Fluticasone/Umeclidinium/Vilanterol 100/62.5/25 Blst.W.Dev) 1 puff INHALE RDAILY [facility] Ceftriaxone Sodium 1 gm/ (Sodium Chloride) 50 mls @ 100 mls/hr IV Q24H [facility] Azithromycin 500 mg/ Sodium (Chloride) 250 mls @ 125 mls/hr IV Q24H [facility] Magnesium Hydroxide (Milk Of Magnesia 30 Ml Oral.Susp) 30 ml PO DAILY PRN PRN Reason: Constipation Melatonin (Melatonin 3 Mg Tablet) 6 mg PO BEDTIME PRN PRN Reason: Insomnia Methylprednisolone Sodium Succinate (Methylprednisolone Sod Succ 40 Mg/Ml Vial) 40 mg IVPUSH Q12H [facility] Multivitamins/Vitamin C (Multivitamin Tablet) 1 tab PO DAILY [facility] Neomycin/Polymyxin/Hydrocortisone (Neomycin/Polymyxin/Hc Otic Nazia Bottle) 2 drop EAR-BOTH QID PRN PRN Reason: Wax/ infection Non-Formulary Medication (Latanoprostene Bunod [Vyzulta]) 1 drop EYE-BOTH BEDTIME [facility] Non-Formulary Medication (Bupropion Hcl) 150 mg PO DAILY [facility] Polyethylene Glycol (Polyethylene Glycol 3350 17 Gm Powd.Pack) 17 gm PO DAILY PRN PRN Reason: Constipation Pregabalin (Pregabalin 75 Mg Capsule) 75 mg PO BID [facility] Pyridoxine HCl (Pyridoxine Hcl (Vitamin B6) 50 Mg Tablet) 50 mg PO DAILY [facility] Sodium Chloride (0.9 % Sodium Chloride Flush 3 Ml Syringe) 3 ml IVFLUSH QSHIFT [facility] Last Admin: 01/07/24 15:50 Dose: 3 ml Tamsulosin HCl (Tamsulosin Hcl 0.4 Mg Capsule) 0.4 mg PO BEDTIME [facility] Theophylline (Theophylline Anhydrous Er 400 Mg Tab.Er.24h) 400 mg PO BID [facility] Triamcinolone Acetonide (Triamcinolone Acet 0.1 % Cream 15 Gm Tube) 1 appl TOPICAL DAILY PRN; Protocol PRN Reason: Rash Vitamin D (Cholecalciferol (Vitamin D3) 25 Mcg Tablet) 25 mcg PO DAILY [facility] Home Medications ?Medication ?Instructions ?Recorded ?Confirmed ?Last Taken ?Type atorvastatin 10 mg tablet 10 mg PO DAILY 06/19/20 01/07/24 10/16/23 History bupropion HCl 150 mg tablet,12 hr 150 mg PO DAILY 01/02/22 01/07/24 10/16/23 History sustained-release fentanyl 100 mcg/hr transdermal 1 patch topical Q3D@1800 01/02/22 01/07/24 10/16/23 History patch albuterol sulfate 90 mcg/actuation 2 puff inhalation Q4H PRN 10/17/23 01/07/24 10/16/23 History aerosol inhaler Shortness Of Breath Or Wheezing cholecalciferol (vitamin D3) 25 25 mcg PO DAILY 10/17/23 01/07/24 10/16/23 History mcg (1,000 unit) tablet multivitamin 1 tab PO DAILY 10/17/23 01/07/24 10/16/23 History prednisone 20 mg tablet 10 mg PO DAILY 10/17/23 01/07/24 10/16/23 History tamsulosin 0.4 mg capsule 0.4 mg PO BEDTIME 10/17/23 01/07/24 10/16/23 History ipratropium 0.5 mg-albuterol 3 mg 1 ml inhalation QID PRN dyspnea 01/07/24 01/07/24 Unknown History (2.5 mg base)/3 mL nebulization soln latanoprostene bunod 0.024 % eye 1 drp ophthalmic (eye) BEDTIME 01/07/24 01/07/24 Unknown History drops (Vyzulta) [id number] 3.5 2 drp otic (ears) QID PRN Wax/ 01/07/24 01/07/24 Unknown History mg/mL-10,000 unit/mL-1 % ear infection solution pregabalin 75 mg capsule 75 - 150 mg PO QAM 01/07/24 01/07/24 Unknown History pyridoxine (vitamin B6) 50 mg 50 mg PO DAILY 01/07/24 01/07/24 Unknown History capsule (Vitamin B-6) triamcinolone acetonide 0.1 % 1 appl topical DAILY PRN Rash 01/07/24 01/07/24 Unknown History topical cream Physical Exam 2 Vital Signs and Narrative: Vital Signs: Last Vital Signs Temp 97.9 F 01/07/24 15:47 Pulse 74 01/07/24 15:47 Resp 12 01/07/24 15:47 BP 117/46 L 01/07/24 15:47 Pulse Ox 97 01/07/24 15:47 O2 Del Method Nasal Cannula 01/07/24 15:47 O2 Flow Rate 2 01/07/24 15:47 Oxygen Flow Rate 2 01/07/24 11:24 BMI result Body Mass Index 26.9 Constitutional: Alert, in no acute distress. Mental Status: Oriented to person, place and time. Eyes: Pupils are equal, round, and reactive to light. Ear, Nose, and Throat: Oropharynx clear, mucous membranes moist. Ears and nose without deformities. Trachea midline. Respiratory: Diffuse expiratory bilaterally wheezing. Cardiovascular: S1, S2 regular. No murmurs, rubs, or gallops. Gastrointestinal: Abdomen soft, non-tender, non-distended. Normal bowel sounds. Neurologic: Cranial nerves II-XII are grossly intact bilaterally. No focal neurological deficits. Moves all extremities spontaneously. Skin: Warm, dry. Musculoskeletal: No cyanosis or clubbing. Extremities: No edema. Psychiatric: Normal mood and affect. Results Labs 01/09/24 08:49 01/09/24 08:49 Labs: Laboratory Results - last 24 hr 01/07/24 01/07/24 11:37 13:02 MCV 102.6 H MCH 34.3 H MCHC 33.4 RDW 15.0 Plt Count 285 D MPV 10.6 Immature Gran % (Auto) 0.4 Neut % (Auto) 53.2 Lymph % (Auto) 17.7 L [place] % (Auto) 13.2 H Eos % (Auto) 14.5 H Baso % (Auto) 1.0 Lymph # (Auto) 1.3 [place] # (Auto) 0.9 Eos # (Auto) 1.0 H Baso # (Auto) 0.1 Abs Immat Gran (auto) 0.03 Absolute Neuts (auto) 3.8 Absolute Nucleated RBC 0.000 Nucleated RBC % (auto) 0.0 PT 14.4 H INR 1.2 H APTT 28.0 Anion Gap 15 Estim Creat Clear Calc 49.9 Estimated GFR 50 Random Glucose 149 H Lactic Acid 0.9 Calcium 9.3 Magnesium 2.0 Total Bilirubin 0.6 AST 25 ALT 25 Alkaline Phosphatase 64 Troponin I High Sens 7.2 Total Protein 7.2 Albumin 3.7 Influenza Type A (PCR) NEGATIVE Influenza Type B (PCR) NEGATIVE RSV RNA Qual (PCR) NEGATIVE SARS-CoV-2 RNA (RT-PCR) NEGATIVE Imaging Radiologist's Impressions: Impressions Chest X-Ray 01/07/24 12:10 IMPRESSION: No acute disease. Assessment and Plan (1) Acute exacerbation of chronic obstructive pulmonary disease: Status: Inactive (2) Acute hypoxic respiratory failure: Status: Resolved Plan Pt is a 78-year-old male with a PMH significant for?COPD on 2-3L home O2 prn, HLD, BPH, chronic lower back pain, and arthritis who presents to the ED for evaluation of SOB, difficulty breathing, productive cough, and generalized weakness x3-4 days. Pt will be admitted to the hospital for treatment further evaluation of acute hypoxic respiratory failure in the setting of COPD exacerbation with likely superimposed pneumonia. Acute on chronic hypoxic respiratory failure in the setting of COPD exacerbation with likely superimposed pneumonia Patient with increased SOB, productive cough, fatigue, desatting as low as 88% on RA Patient does not meet sepsis criteria Patient given Solu-Medrol, IVF, Duonebs, and started on broad-spectrum antibiotics in the ED Will treat with DuoNebs, Solu-Medrol, guaifenesin, ceftriaxone, and azithromycin, started 01/08/2024 Patient on 2-3 L home O2 p.r.n.; titrate supplemental O2>90, wean as tolerated Continue home inhalers Monitor respiratory status HLD Continue statins BPH Continue tamsulosin Chronic lower back pain Continue fentanyl patch Full Code Attending:?Dr. Tom DVT Prophylaxis: Lovenox Pt will require a hospitalization of at least two nights for treatment of?acute hypoxic respiratory failure in setting of COPD exacerbation with likely superimposed pneumonia. Given patient's current hypoxia, increased supplemental oxygen demand, and deconditioned state, patient will require hospitalization for administration of IV antibiotics, IV steroids, breathing treatments, and close monitoring of respiratory status. Quality Stroke Does the patient have a stroke diagnosis?: No VTE Prior VTE?: No VTE Risk Level:: Medical - moderate - high VTE Device Contraindication: Treatment Not Indicated VTE Drug Contraindication: N/A - Med Ordered
--- NOTE | 2024-01-07 18:41 | PC.NURSE ---
Patient resting quietly eating dinner at this time.
[2024-01-07] MEDS: Tamsulosin HCL 0.4 MG CAPSULE PO (20:07)
[2024-01-07] MEDS: Pregabalin 75 MG CAPSULE PO (20:07)
[2024-01-07] MEDS: Theophylline Anhydrous ER 400 MG TAB.ER.24H PO (20:14)
--- NOTE | 2024-01-07 20:18 | PC.NURSE ---
Patient visibly sweaty, states he feels hot. Rectal and oral temp checked, no fever. Patient's hudson and linen changed, medicated for PM, given call costa to ring for assistance if needed.
[2024-01-08] VITALS (10 sets, daily range): BP systolic 118–166; BP diastolic 57–75; PULSE 58–151; RESP 12–24; TEMP 36.2–36.5; O2SAT 91–98
--- NOTE | 2024-01-08 | ECG_ITS ---
Test Reason : tach Blood Pressure : / mmHG Vent. Rate : 102 BPM Atrial Rate : 102 BPM P-R Int : 192 ms QRS Dur : 088 ms QT Int : 348 ms P-R-T Axes : 077 006 044 degrees QTc Int : 453 ms Sinus tachycardia with Premature supraventricular complexes and with occasional Premature ventricular complexes Nonspecific ST abnormality Abnormal ECG When compared with ECG of 07-JAN-2024 11:38, Premature ventricular complexes are now Present Criteria for Septal infarct are no longer Present ST now depressed in Anterior leads Referred By: Justin Tom Electronically Signed By:MELLISA RICCI MD
[2024-01-08] MEDS: methylPREDNISolone Sod Succ 40 MG/ML VIAL IVPUSH ×2 (00:53→13:42)
[2024-01-08] MEDS: fentaNYL 100 MCG PATCH.TD72 TRANSDERMA (01:49)
--- NOTE | 2024-01-08 01:50 | PC.NURSE ---
Old fentanyl patch from right hip removed and disposed with McMorrow RN as witness. New fentanyl patch applied to left hip per pt request.
[2024-01-08] MEDS: cefTRIAXone sodium 1 GM in 0.9 % Sodium Chloride 50 ML IV (07:55)
[2024-01-08] MEDS: Albuterol/Iprat 2.5/0.5MG 3 ML AMPUL.NEB INHALE ×4 (08:32→19:47)
[2024-01-08] MEDS: Atorvastatin Calcium 10 MG TABLET PO (08:36)
[2024-01-08] MEDS: Cholecalciferol (Vitamin D3) 25 MCG TABLET PO (08:36)
[2024-01-08] MEDS: Pregabalin 75 MG CAPSULE PO ×2 (08:36→21:33)
[2024-01-08] MEDS: Pyridoxine HCl (Vitamin B6) 50 MG TABLET PO (08:36)
[2024-01-08] MEDS: Multivitamin TABLET 1 TAB PO (08:36)
--- NOTE | 2024-01-08 08:40 | PC.NURSE ---
pt was resting at 98% on 2L via NC - pt weaned down to RA. pt now resting at 94% on RA. no sob/wob noted. respirations even and unlabored. slight wheezing noted throughout lung carlos. pt receiving breathing treatment via RT. medications administered per provider order. plan of care ongoing. pt waiting for bed assignment. call costa placed within reach.
[2024-01-08 09:04] LABS: VBG Base Excess 2.6 mmol/L; VBG HCO3 26 mmol/L (22-26); VBG pCO2 39 mmHg; VBG pH 7.43 (7.32-7.43); VBG pO2 53 mmHg
[2024-01-08 09:07] LABS: Venous Blood Gas Refer to POC result
[2024-01-08 09:08] LABS: Hemoglobin 10.9 g/dl (14.0-18.0); Mean Corpuscular HGB Conc 34.1 g/dl (31.0-36.0); Mean Corpuscular Hemoglobin 34.3 pg (27.0-33.0); Mean Corpuscular Volume 100.6 fL (80.0-98.0); Mean Platelet Volume 10.5 fL (9.4-12.4); Platelet Count 237 X10*3/uL (160-400); Red Blood Count 3.18 X10*6/uL (4.60-5.80); Red Cell Distribution Width 14.6 % (11.0-16.0)
[2024-01-08 09:13] LABS: White Blood Count 2.5 X10*3/uL (4.8-10.8)
[2024-01-08 09:23] LABS: Anion Gap 17 (12-20); Blood Urea Nitrogen 18 mg/dL (9-16); Calcium 9.4 mg/dL (8.4-10.2); Carbon Dioxide 24 mmol/L (22-29); Chloride 101 mmol/L (96-108); Creatinine Clr Calc Pharmacy 69.6; Estimated Glomerular Filt Rate > 60; Glucose Random 229 mg/dL (60-115); Sodium 138 mmol/L (135-145)
[2024-01-08 09:38] LABS: Procalcitonin 0.13 ng/mL
[2024-01-08] MEDS: Theophylline Anhydrous ER 400 MG TAB.ER.24H PO ×2 (11:09→21:33)
[2024-01-08] MEDS: Fluticasone/Umeclidinium/Vilanterol 100/62.5/25 BLST.W.DEV 1 PUFF INHALE (11:26)
--- NOTE | 2024-01-08 11:27 | PC.NURSE ---
dawit inhaler delivered from pharmacy/administered.
--- NOTE | 2024-01-08 11:51 | PC.NURSE ---
admission worksheet complete. transport notified.
--- NOTE | 2024-01-08 12:09 | P.PNIM_ITS ---
Subjective Subjective Date of Service: 01/08/24 Interval History: still c/o dyspnea + wheeze, coughing up sputum no fever Review of Systems Review of Systems: Yes all other systems are reviewed and are negative Physical Exam 2 Vital Signs: Vital Signs: Last Vital Signs Temp 97.5 F 01/08/24 08:38 Pulse 66 01/08/24 11:53 Resp 16 01/08/24 11:53 BP 121/57 L 01/08/24 08:38 Pulse Ox 94 01/08/24 08:38 O2 Del Method Room Air 01/08/24 08:38 O2 Flow Rate 2 01/08/24 05:55 Oxygen Flow Rate 2 01/07/24 11:24 BMI result Body Mass Index 26.9 Gen: in no acute distress HEENT: sclera anicteric, moist mucus membranes Neck: supple Lungs: diffuse expiratory wheezes, prolonged expiration Heart: regular rate and rhythm, no murmurs Abd: soft, non-tender, non-distended Ext: no edema Skin: warm/well-perfused Neuro: alert and oriented x3, no focal findings Psych: appropriate affect Objective Data Active Medications Acetaminophen (Acetaminophen 325 Mg Tablet) 650 mg PO Q6H PRN PRN Reason: Fever, mild pain, or headache Albuterol/Ipratropium (Albuterol/Iprat 2.5/0.5mg 3 Ml Ampul.Neb) 3 ml INHALE RQ4H WHILE AWAKE [facility] Last Admin: 01/08/24 11:52 Dose: 3 ml Documented By: MARY Atorvastatin Calcium (Atorvastatin Calcium 10 Mg Tablet) 10 mg PO DAILY [facility] Last Admin: 01/08/24 08:36 Dose: 10 mg Documented By: IZA Calcium Carbonate (Calcium Carbonate 750 Mg Tab.Chew) 750 mg PO Q6H PRN PRN Reason: Heartburn Enoxaparin Sodium (Enoxaparin Sodium 40 Mg/0.4 Ml Syringe) 40 mg SUBCUT Q24H [facility] Last Admin: 01/07/24 15:48 Dose: 40 mg Documented By: ANNA Fentanyl (Fentanyl 100 Mcg Patch.Td72) 100 mcg TRANSDERMA Q3D@0000 [facility] Last Admin: 01/08/24 01:49 Dose: 100 mcg Documented By: SHANELL Fluticasone/Umeclidinium/Vilanterol (Fluticasone/Umeclidinium/Vilanterol 100/62.5/25 Blst.W.Dev) 1 puff INHALE RDAILY [facility] Last Admin: 01/08/24 11:26 Dose: 1 puff Documented By: IZA Guaifenesin/Dextromethorphan (Guaifenesin Dm 200/20/10 Ml 10 Ml Syrup) 10 ml PO Q6H PRN PRN Reason: Cough Ceftriaxone Sodium 1 gm/ (Sodium Chloride) 50 mls @ 100 mls/hr IV Q24H [facility] Last Infusion: 01/08/24 08:37 Dose: Infused Documented By: IZA Azithromycin 500 mg/ Sodium (Chloride) 250 mls @ 125 mls/hr IV Q24H [facility] Magnesium Hydroxide (Milk Of Magnesia 30 Ml Oral.Susp) 30 ml PO DAILY PRN PRN Reason: Constipation Melatonin (Melatonin 3 Mg Tablet) 6 mg PO BEDTIME PRN PRN Reason: Insomnia Methylprednisolone Sodium Succinate (Methylprednisolone Sod Succ 40 Mg/Ml Vial) 40 mg IVPUSH Q12H [facility] Last Admin: 01/08/24 00:53 Dose: 40 mg Documented By: SHANELL Multivitamins/Vitamin C (Multivitamin Tablet) 1 tab PO DAILY [facility] Last Admin: 01/08/24 08:36 Dose: 1 tab Documented By: IZA Neomycin/Polymyxin/Hydrocortisone (Neomycin/Polymyxin/Hc Otic Nazia Bottle) 2 drop EAR-BOTH QID PRN PRN Reason: Wax/ infection Non-Formulary Medication (Latanoprostene Bunod [Vyzulta]) 1 drop EYE-BOTH BEDTIME [facility] Non-Formulary Medication (Bupropion Hcl) 150 mg PO DAILY [facility] Polyethylene Glycol (Polyethylene Glycol 3350 17 Gm Powd.Pack) 17 gm PO DAILY PRN PRN Reason: Constipation Pregabalin (Pregabalin 75 Mg Capsule) 75 mg PO BID [facility] Last Admin: 01/08/24 08:36 Dose: 75 mg Documented By: IZA Pyridoxine HCl (Pyridoxine Hcl (Vitamin B6) 50 Mg Tablet) 50 mg PO DAILY [facility] Last Admin: 01/08/24 08:36 Dose: 50 mg Documented By: IZA Sodium Chloride (0.9 % Sodium Chloride Flush 3 Ml Syringe) 3 ml IVFLUSH QSHIFT [facility] Last Admin: 01/08/24 07:28 Dose: Not Given Documented By: IZA Non-Admin Reason: IV Running Tamsulosin HCl (Tamsulosin Hcl 0.4 Mg Capsule) 0.4 mg PO BEDTIME [facility] Last Admin: 01/07/24 20:07 Dose: 0.4 mg Documented By: ANNA Theophylline (Theophylline Anhydrous Er 400 Mg Tab.Er.24h) 400 mg PO BID [facility] Last Admin: 01/08/24 11:09 Dose: 400 mg Documented By: IZA Triamcinolone Acetonide (Triamcinolone Acet 0.1 % Cream 15 Gm Tube) 1 appl TOPICAL DAILY PRN; Protocol PRN Reason: Rash Vitamin D (Cholecalciferol (Vitamin D3) 25 Mcg Tablet) 25 mcg PO DAILY [facility] Last Admin: 01/08/24 08:36 Dose: 25 mcg Documented By: IZA Labs 01/08/24 08:54 01/08/24 08:54 Labs: Laboratory Results - last 24 hr 01/07/24 01/07/24 01/08/24 11:37 13:02 08:54 MCV 100.6 H MCH 34.3 H MCHC 34.1 RDW 14.6 Plt Count 237 MPV 10.5 Absolute Nucleated RBC 0.000 Nucleated RBC % (auto) 0.0 VBG pH VBG pCO2 VBG pO2 VBG HCO3 VBG O2 Saturation VBG Base Excess Anion Gap 17 Estim Creat Clear Calc 69.6 Estimated GFR > 60 Random Glucose 229 H Lactic Acid 0.9 Calcium 9.4 Procalcitonin 0.13 Influenza Type A (PCR) NEGATIVE Influenza Type B (PCR) NEGATIVE RSV RNA Qual (PCR) NEGATIVE SARS-CoV-2 RNA (RT-PCR) NEGATIVE 01/08/24 08:56 MCV MCH MCHC RDW Plt Count MPV Absolute Nucleated RBC Nucleated RBC % (auto) VBG pH 7.43 VBG pCO2 39 VBG pO2 53 VBG HCO3 26 VBG O2 Saturation 84.0 VBG Base Excess 2.6 Anion Gap Estim Creat Clear Calc Estimated GFR Random Glucose Lactic Acid Calcium Procalcitonin Influenza Type A (PCR) Influenza Type B (PCR) RSV RNA Qual (PCR) SARS-CoV-2 RNA (RT-PCR) Assessment and Plan (1) Asthma exacerbation in COPD: Status: Acute Assessment and Plan: d2 78yo M with COPD on 2-3 home O2 prn, HLD, BPH, chronic low back pain presenting with dyspnea + productive cough x3-4d, admitted for hypoxia due to COPD exacerbation acute-chronic hypoxic respiratory failure due to COPD exacerbation - wean O2 support as tolerated - methylprednisolone 01/06- - standing/prn nebs - ceftriaxone + azithromycin 01/06- - continue Trelegy + theophylline HLD - continue statin BPH - continue tamuslosin mood disorder - bupropion chronic low back pain - continue pregabalin, fentanyl patch VTE ppx - LMWH dispo - PT eval In my clinical judgment, the patient requires continued inpatient hospitalization for the following reasons: IV ABX, oxygen Total time managing care of this patient today: 35 minutes. Quality Stroke Does the patient have a stroke diagnosis?: No VTE Prior VTE?: No VTE Risk Level:: Medical - moderate - high VTE Device Contraindication: Treatment Not Indicated VTE Drug Contraindication: N/A - Med Ordered
--- NOTE | 2024-01-08 12:25 | MHC.CM.PN ---
PT REPORTS HE LIVES ALONE AND IS INDEPENDENT WITH CARE HE HAS OXYGEN HE WEARS AT NIGHT ONLY VIA [facility] HE IS ACTIVE WITH [facility] FOR MEALS ON WHEELS ONLY COPY OF HCP REQUESTED PCP: CHRIS FLETCHER IMM DELIVERED DCP: HOME NO SERVICES VIA PRIVATE TRANSPORT
[2024-01-08] MEDS: guaiFENesin DM 200/20/10 ML 10 ML SYRUP PO (13:39)
[2024-01-08] MEDS: Azithromycin 500 MG in 0.9 % Sodium Chloride 250 ML 125 MG IV (13:46)
[2024-01-08] MEDS: 0.9 % Sodium Chloride Flush 3 ML SYRINGE IVFLUSH ×2 (13:47→21:34)
[2024-01-08] MEDS: Enoxaparin Sodium 40 MG/0.4 ML SYRINGE SUBCUT (16:30)
--- NOTE | 2024-01-08 19:55 | PC.RT ---
pt 02 sats 96% on RA pt refuses to keep oxygen off educated the pt on why he doesn't need the oxygen right now pt states he wears oxygen 2l at home noc
[2024-01-08] MEDS: polyethylene glycoL 3350 17 GM POWD.PACK PO (21:32)
[2024-01-08] MEDS: Tamsulosin HCL 0.4 MG CAPSULE PO (21:33)
[2024-01-09] VITALS (14 sets, daily range): BP systolic 114–151; BP diastolic 55–78; PULSE 67–155; RESP 16–20; TEMP 36.1–36.6; O2SAT 92–98
--- NOTE | 2024-01-09 | ECG_ITS ---
Test Reason : cp Blood Pressure : / mmHG Vent. Rate : 146 BPM Atrial Rate : 000 BPM P-R Int : 000 ms QRS Dur : 092 ms QT Int : 296 ms P-R-T Axes : 000 019 043 degrees QTc Int : 461 ms Supraventricular tachycardia most likely atrial flutter or atrial tachycardia with PVC Septal infarct , age undetermined Abnormal ECG When compared with ECG of 09-JAN-2024 13:35, Supraventricular tachycardia has replaced Normal sinus rhythm Septal infarct is now Present Referred By: Charla Peguero Electronically Signed By:MELLISA RICCI MD
[2024-01-09] MEDS: methylPREDNISolone Sod Succ 40 MG/ML VIAL IVPUSH ×2 (01:09→12:26)
[2024-01-09] MEDS: Albuterol/Iprat 2.5/0.5MG 3 ML AMPUL.NEB INHALE ×2 (07:43→11:17)
[2024-01-09] MEDS: Pyridoxine HCl (Vitamin B6) 50 MG TABLET PO (08:08)
[2024-01-09] MEDS: Pregabalin 75 MG CAPSULE PO ×2 (08:08→22:18)
[2024-01-09] MEDS: 0.9 % Sodium Chloride Flush 3 ML SYRINGE IVFLUSH ×2 (08:08→22:18)
[2024-01-09] MEDS: Theophylline Anhydrous ER 400 MG TAB.ER.24H PO (08:08)
[2024-01-09] MEDS: Atorvastatin Calcium 10 MG TABLET PO (08:08)
[2024-01-09] MEDS: cefTRIAXone sodium 1 GM in 0.9 % Sodium Chloride 50 ML IV (08:08)
[2024-01-09] MEDS: Multivitamin TABLET 1 TAB PO (08:08)
[2024-01-09] MEDS: Cholecalciferol (Vitamin D3) 25 MCG TABLET PO (08:08)
[2024-01-09 09:24] LABS: Hematocrit 31.2 % (42.0-52.0); Hemoglobin 10.5 g/dl (14.0-18.0); Mean Corpuscular HGB Conc 33.7 g/dl (31.0-36.0); Mean Corpuscular Hemoglobin 34.8 pg (27.0-33.0); Mean Corpuscular Volume 103.3 fL (80.0-98.0); Mean Platelet Volume 10.9 fL (9.4-12.4); Platelet Count 248 X10*3/uL (160-400); Red Blood Count 3.02 X10*6/uL (4.60-5.80); Red Cell Distribution Width 14.9 % (11.0-16.0); White Blood Count 7.4 X10*3/uL (4.8-10.8)
[2024-01-09 09:42] LABS: Anion Gap 18 (12-20); Blood Urea Nitrogen 21 mg/dL (9-16); Calcium 9.3 mg/dL (8.4-10.2); Carbon Dioxide 24 mmol/L (22-29); Chloride 102 mmol/L (96-108); Creatinine Clr Calc Pharmacy 71.1; Estimated Glomerular Filt Rate > 60; Glucose Random 198 mg/dL (60-115); Magnesium 2.1 mg/dL (1.6-2.6); Potassium 3.7 mmol/L (3.3-5.1); Sodium 140 mmol/L (135-145)
--- NOTE | 2024-01-09 11:18 | MHC.CM.PN ---
EMR REVIEWED. PER MD ROUNDS PATIENT IS NOT MEDICALLY CLEARED FOR DC. NO CHANGE TO DC PLAN. CM WILL CONTINUE TO FOLLOW.
[2024-01-09] MEDS: Azithromycin 500 MG in 0.9 % Sodium Chloride 250 ML 125 MG IV (12:26)
--- NOTE | 2024-01-09 13:01 | PM.CNCAR ---
History of Present Illness History of Present Illness Date of Service: 01/09/24 Consult reason: other (Cardiac arrhythmia) Chief complaint: COPD exacerbation, hypoxia Narrative: I was consulted to see Jordy in cardiology consultation today for cardiac arrhythmias. He has a pleasant 78-year-old male admitted for COPD exacerbation and community-acquired pneumonia. Patient says he has no cardiovascular issues. Yesterday he suddenly felt rapid heart rate with palpitations and felt lightheaded. Immediately he was put on the monitor although on the monitor there was no abnormality noted. EKG done showed normal sinus rhythm with PVCs and PACs. 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 He said last admission in October he had similar episode after getting bronchodilators therapy that he had heart had rapid heart rate. Again no EKG diagnosis with this. He said on the outpatient basis does not have any significant issues. He does not have exertional chest pain. He has never had prior myocardial infarction. Denies any other vascular disease. Takes all his medications regularly. Review of Systems Constitutional: Constitutional: Reports no additional constitutional complaints Eyes: Eyes: Reports no additional eye complaints Cardiovascular: Cardiovascular: Denies chest pain, Reports rapid heart rate, Reports lightheadedness, Reports palpitations and Reports dyspnea on exertion Respiratory: Respiratory: Reports dyspnea on exertion and Reports wheezing Gastrointestinal: Gastrointestinal: Reports no additional gastrointestinal complaints Genitourinary: Genitourinary: Reports no additional male genitourinary complaints Musculoskeletal: Musculoskeletal: Reports no additional musculoskeletal complaints Neurologic: Reports system reviewed and no additional complaints, except as documented Psychiatric: Psychiatric: Reports no additional psychiatric complaints Endocrine: Endocrine: Reports palpitations Allergic/Immunologic: Allergic/Immunologic: Reports wheezing [facility] Past Medical History Medical History HLD (hyperlipidemia) Osteoarthritis BPH (benign prostatic hyperplasia) Skin lesion of back Chronic obstructive pulmonary disease, unspecified Diverticulosis of large intestine without perforation or abscess without bleeding 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 Family History Family History Mother Hypertension Father Hypertension Surgical History Surgical History History of excision of lesion (~04/17/23) History of repair of rotator cuff History of colon resection (~2001) Social History Social History Household Members: None Housing: House Do you presently have visiting nurse or other home services: Yes (Meals on wheels) Alcohol intake: never Patient Tobacco Use Status: Former Tobacco user Quit Date: 2018 Tobacco use type: Cigarette service: No Current occupational status: employed and retired 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 /[employer] Meds Allergies Allergy/AdvReac Type Severity Reaction Status Date / Time No Known Allergies Allergy Mild NONE Verified 01/07/24 11:27 Active Medications: Current Medications Acetaminophen (Acetaminophen 325 Mg Tablet) 650 mg PO Q6H PRN PRN Reason: Fever, mild pain, or headache Atorvastatin Calcium (Atorvastatin Calcium 10 Mg Tablet) 10 mg PO DAILY [facility] Last Admin: 01/09/24 08:08 Dose: 10 mg Calcium Carbonate (Calcium Carbonate 750 Mg Tab.Chew) 750 mg PO Q6H PRN PRN Reason: Heartburn Enoxaparin Sodium (Enoxaparin Sodium 40 Mg/0.4 Ml Syringe) 40 mg SUBCUT Q24H [facility] Last Admin: 01/08/24 16:30 Dose: 40 mg Fentanyl (Fentanyl 100 Mcg Patch.Td72) 100 mcg TRANSDERMA Q3D@0000 [facility] Last Admin: 01/08/24 01:49 Dose: 100 mcg Fluticasone/Umeclidinium/Vilanterol (Fluticasone/Umeclidinium/Vilanterol 100/62.5/25 Blst.W.Dev) 1 puff INHALE RDAILY [facility] Last Admin: 01/09/24 09:02 Dose: Not Given Guaifenesin/Dextromethorphan (Guaifenesin Dm 200/20/10 Ml 10 Ml Syrup) 10 ml PO Q6H PRN PRN Reason: Cough Last Admin: 01/08/24 13:39 Dose: 10 ml Ceftriaxone Sodium 1 gm/ (Sodium Chloride) 50 mls @ 100 mls/hr IV Q24H [facility] Last Infusion: 01/09/24 08:39 Dose: Infused Azithromycin 500 mg/ Sodium (Chloride) 250 mls @ 125 mls/hr IV Q24H [facility] Last Admin: 01/09/24 12:26 Dose: 125 mls/hr Levalbuterol HCl (Levalbuterol Hcl 1.25 Mg/3 Ml Vial.Neb) 1.25 mg INHALE RQ4H PRN PRN Reason: Shortness of Breath/Wheezing Magnesium Hydroxide (Milk Of Magnesia 30 Ml Oral.Susp) 30 ml PO DAILY PRN PRN Reason: Constipation Melatonin (Melatonin 3 Mg Tablet) 6 mg PO BEDTIME PRN PRN Reason: Insomnia Methylprednisolone Sodium Succinate (Methylprednisolone Sod Succ 40 Mg/Ml Vial) 40 mg IVPUSH Q12H [facility] Last Admin: 01/09/24 12:26 Dose: 40 mg Multivitamins/Vitamin C (Multivitamin Tablet) 1 tab PO DAILY [facility] Last Admin: 01/09/24 08:08 Dose: 1 tab Neomycin/Polymyxin/Hydrocortisone (Neomycin/Polymyxin/Hc Otic Nazia Bottle) 2 drop EAR-BOTH QID PRN PRN Reason: Wax/ infection Non-Formulary Medication (Latanoprostene Bunod [Vyzulta]) 1 drop EYE-BOTH BEDTIME [facility] Non-Formulary Medication (Bupropion Hcl) 150 mg PO DAILY [facility] Polyethylene Glycol (Polyethylene Glycol 3350 17 Gm Powd.Pack) 17 gm PO DAILY PRN PRN Reason: Constipation Last Admin: 01/08/24 21:32 Dose: 17 gm Pregabalin (Pregabalin 75 Mg Capsule) 75 mg PO BID [facility] Last Admin: 01/09/24 08:08 Dose: 75 mg Pyridoxine HCl (Pyridoxine Hcl (Vitamin B6) 50 Mg Tablet) 50 mg PO DAILY [facility] Last Admin: 01/09/24 08:08 Dose: 50 mg Sodium Chloride (0.9 % Sodium Chloride Flush 3 Ml Syringe) 3 ml IVFLUSH QSHIFT [facility] Last Admin: 01/09/24 08:08 Dose: 3 ml Tamsulosin HCl (Tamsulosin Hcl 0.4 Mg Capsule) 0.4 mg PO BEDTIME [facility] Last Admin: 01/08/24 21:33 Dose: 0.4 mg Theophylline (Theophylline Anhydrous Er 400 Mg Tab.Er.24h) 400 mg PO BID [facility] Last Admin: 01/09/24 08:08 Dose: 400 mg Triamcinolone Acetonide (Triamcinolone Acet 0.1 % Cream 15 Gm Tube) 1 appl TOPICAL DAILY PRN; Protocol PRN Reason: Rash Vitamin D (Cholecalciferol (Vitamin D3) 25 Mcg Tablet) 25 mcg PO DAILY [facility] Last Admin: 01/09/24 08:08 Dose: 25 mcg Home Medications ?Medication ?Instructions ?Recorded ?Confirmed ?Last Taken ?Type atorvastatin 10 mg tablet 10 mg PO DAILY 06/19/20 01/07/24 10/16/23 History bupropion HCl 150 mg tablet,12 hr 150 mg PO DAILY 01/02/22 01/07/24 10/16/23 History sustained-release fentanyl 100 mcg/hr transdermal 1 patch topical Q3D@1800 01/02/22 01/07/24 10/16/23 History patch albuterol sulfate 90 mcg/actuation 2 puff inhalation Q4H PRN 10/17/23 01/07/24 10/16/23 History aerosol inhaler Shortness Of Breath Or Wheezing cholecalciferol (vitamin D3) 25 25 mcg PO DAILY 10/17/23 01/07/24 10/16/23 History mcg (1,000 unit) tablet multivitamin 1 tab PO DAILY 10/17/23 01/07/24 10/16/23 History prednisone 20 mg tablet 10 mg PO DAILY 10/17/23 01/07/24 10/16/23 History tamsulosin 0.4 mg capsule 0.4 mg PO BEDTIME 10/17/23 01/07/24 10/16/23 History ipratropium 0.5 mg-albuterol 3 mg 1 ml inhalation QID PRN dyspnea 01/07/24 01/07/24 Unknown History (2.5 mg base)/3 mL nebulization soln latanoprostene bunod 0.024 % eye 1 drp ophthalmic (eye) BEDTIME 01/07/24 01/07/24 Unknown History drops (Vyzulta) [id number] 3.5 2 drp otic (ears) QID PRN Wax/ 01/07/24 01/07/24 Unknown History mg/mL-10,000 unit/mL-1 % ear infection solution pregabalin 75 mg capsule 75 - 150 mg PO QAM 01/07/24 01/07/24 Unknown History pyridoxine (vitamin B6) 50 mg 50 mg PO DAILY 01/07/24 01/07/24 Unknown History capsule (Vitamin B-6) triamcinolone acetonide 0.1 % 1 appl topical DAILY PRN Rash 01/07/24 01/07/24 Unknown History topical cream Physical Exam Vital Signs: Vital Signs: Last Vital Signs Temp 96.9 F 01/09/24 07:54 Pulse 100 01/09/24 11:18 Resp 20 01/09/24 11:18 BP 142/65 H 01/09/24 07:54 Pulse Ox 95 01/09/24 07:54 O2 Del Method Nasal Cannula 01/09/24 07:54 O2 Flow Rate 1 01/09/24 07:54 Oxygen Flow Rate 2 01/07/24 11:24 BMI result Body Mass Index 26.9 Const: General: cooperative, comfortable, no acute distress, alert, awake and Physically active Nutritional Appearance: average body habitus and well nourished Orientation/consciousness: patient oriented x3 Limitations: no limitations HEENT: Head: Yes normocephalic and Yes atraumatic Neck: Neck: Yes trachea midline, Yes supple and Yes no JVD Resp: Effort & Inspection: normal respiratory effort Auscultation: wheezes and diminished lung sounds Cardio: Jugular venous distension: no JVD Palpation: normal PMI Rate: regular rate Rhythm: abnormal rhythm with ectopic beats Heart sounds: S1 normal heart sound present, S2 normal heart sound present, no click, no gallops, no murmurs and no rubs GI: Auscultation: normal bowel sounds Skin: General skin exam: no rashes or lesions noted Neuro: General: patient oriented x3 and no focal motor deficits Extrem: General: Yes no clubbing, cyanosis or edema Psych: Appearance: grossly normal Objective Labs and Meds 01/09/24 08:49 01/09/24 08:49 Lab results: Laboratory Results - last 24 hr 01/09/24 08:49 WBC 7.4 RBC 3.02 L Hgb 10.5 L Hct 31.2 L MCV 103.3 H MCH 34.8 H MCHC 33.7 RDW 14.9 Plt Count 248 MPV 10.9 Absolute Nucleated RBC 0.000 Nucleated RBC % (auto) 0.0 Sodium 140 Potassium 3.7 Chloride 102 Carbon Dioxide 24 Anion Gap 18 BUN 21 H Creatinine 0.97 Estim Creat Clear Calc 71.1 Estimated GFR > 60 Random Glucose 198 H Calcium 9.3 Magnesium 2.1 Assessment and Plan (1) Cardiac arrhythmia: Status: Acute Cardiac arrhythmias with significant symptoms of palpitation lightheadedness. Happened twice. One episode was triggered by his bronchodilators therapy. Would switch him to pulmonary specific bronchodilators such as Xopenex. He is having frequent PVCs, consider starting Toprol-XL 25 mg daily. Will require workup for ischemia as outpatient given his risk factors. His echocardiogram last year was within normal limits. Possibility of rapid heart rate raises the possibility of SVT or atrial fibrillation. There is short episodes of SVT noted on the monitor. Once his discharge, I would perform a 30 day event monitor as an outpatient. This was discussed with him. For now avoid stimulants. Will follow with him as outpatient. Thank you for allowing me to partake in his care Procedures Date of Service Date of Service: 01/09/24
--- NOTE | 2024-01-09 13:06 | HO.PM.IMPN ---
Subjective Subjective Date of Service: 01/09/24 Interval History: breathing improved, less cough, less dyspnea, less wheezing frequent PVCs/NSVT up to 3-4 beats Review of Systems Review of Systems: Yes all other systems are reviewed and are negative Physical Exam Vital Signs: Vital Signs: Last Vital Signs Temp 96.9 F 01/09/24 07:54 Pulse 100 01/09/24 11:18 Resp 20 01/09/24 11:18 BP 142/65 H 01/09/24 07:54 Pulse Ox 95 01/09/24 07:54 O2 Del Method Nasal Cannula 01/09/24 07:54 O2 Flow Rate 1 01/09/24 07:54 Oxygen Flow Rate 2 01/07/24 11:24 BMI result Body Mass Index 26.9 Gen: in no acute distress HEENT: sclera anicteric, moist mucus membranes Neck: supple Lungs: scattered expiratory wheezes, prolonged expiration Heart: regular rate and rhythm, no murmurs Abd: soft, non-tender, non-distended Ext: no edema Skin: warm/well-perfused Neuro: alert and oriented x3, no focal findings Psych: appropriate affect Objective Data Active Medications Acetaminophen (Acetaminophen 325 Mg Tablet) 650 mg PO Q6H PRN PRN Reason: Fever, mild pain, or headache Atorvastatin Calcium (Atorvastatin Calcium 10 Mg Tablet) 10 mg PO DAILY [facility] Last Admin: 01/09/24 08:08 Dose: 10 mg Documented By: LEONIDES Calcium Carbonate (Calcium Carbonate 750 Mg Tab.Chew) 750 mg PO Q6H PRN PRN Reason: Heartburn Enoxaparin Sodium (Enoxaparin Sodium 40 Mg/0.4 Ml Syringe) 40 mg SUBCUT Q24H [facility] Last Admin: 01/08/24 16:30 Dose: 40 mg Documented By: RAMIREZ Fentanyl (Fentanyl 100 Mcg Patch.Td72) 100 mcg TRANSDERMA Q3D@0000 [facility] Last Admin: 01/08/24 01:49 Dose: 100 mcg Documented By: SHANELL Fluticasone/Umeclidinium/Vilanterol (Fluticasone/Umeclidinium/Vilanterol 100/62.5/25 Blst.W.Dev) 1 puff INHALE RDAILY [facility] Last Admin: 01/09/24 09:02 Dose: Not Given Documented By: LEONIDES Non-Admin Reason: no given by repsiratory Guaifenesin/Dextromethorphan (Guaifenesin Dm 200/20/10 Ml 10 Ml Syrup) 10 ml PO Q6H PRN PRN Reason: Cough Last Admin: 01/08/24 13:39 Dose: 10 ml Documented By: DIA Ceftriaxone Sodium 1 gm/ (Sodium Chloride) 50 mls @ 100 mls/hr IV Q24H [facility] Last Infusion: 01/09/24 08:39 Dose: Infused Documented By: LEONIDES Azithromycin 500 mg/ Sodium (Chloride) 250 mls @ 125 mls/hr IV Q24H [facility] Last Admin: 01/09/24 12:26 Dose: 125 mls/hr Documented By: LEONIDES Levalbuterol HCl (Levalbuterol Hcl 1.25 Mg/3 Ml Vial.Neb) 1.25 mg INHALE RQ4H PRN PRN Reason: Shortness of Breath/Wheezing Magnesium Hydroxide (Milk Of Magnesia 30 Ml Oral.Susp) 30 ml PO DAILY PRN PRN Reason: Constipation Melatonin (Melatonin 3 Mg Tablet) 6 mg PO BEDTIME PRN PRN Reason: Insomnia Methylprednisolone Sodium Succinate (Methylprednisolone Sod Succ 40 Mg/Ml Vial) 40 mg IVPUSH Q12H [facility] Last Admin: 01/09/24 12:26 Dose: 40 mg Documented By: LEONIDES Multivitamins/Vitamin C (Multivitamin Tablet) 1 tab PO DAILY [facility] Last Admin: 01/09/24 08:08 Dose: 1 tab Documented By: LEONIDES Neomycin/Polymyxin/Hydrocortisone (Neomycin/Polymyxin/Hc Otic Nazia Bottle) 2 drop EAR-BOTH QID PRN PRN Reason: Wax/ infection Non-Formulary Medication (Latanoprostene Bunod [Vyzulta]) 1 drop EYE-BOTH BEDTIME [facility] Non-Formulary Medication (Bupropion Hcl) 150 mg PO DAILY [facility] Polyethylene Glycol (Polyethylene Glycol 3350 17 Gm Powd.Pack) 17 gm PO DAILY PRN PRN Reason: Constipation Last Admin: 01/08/24 21:32 Dose: 17 gm Documented By: LYSHenrik Pregabalin (Pregabalin 75 Mg Capsule) 75 mg PO BID [facility] Last Admin: 01/09/24 08:08 Dose: 75 mg Documented By: LEONIDES Pyridoxine HCl (Pyridoxine Hcl (Vitamin B6) 50 Mg Tablet) 50 mg PO DAILY [facility] Last Admin: 01/09/24 08:08 Dose: 50 mg Documented By: LEONIDES Sodium Chloride (0.9 % Sodium Chloride Flush 3 Ml Syringe) 3 ml IVFLUSH QSHIFT [facility] Last Admin: 01/09/24 08:08 Dose: 3 ml Documented By: LEONIDES Tamsulosin HCl (Tamsulosin Hcl 0.4 Mg Capsule) 0.4 mg PO BEDTIME [facility] Last Admin: 01/08/24 21:33 Dose: 0.4 mg Documented By: LAURA Theophylline (Theophylline Anhydrous Er 400 Mg Tab.Er.24h) 400 mg PO BID [facility] Last Admin: 01/09/24 08:08 Dose: 400 mg Documented By: LEONIDES Triamcinolone Acetonide (Triamcinolone Acet 0.1 % Cream 15 Gm Tube) 1 appl TOPICAL DAILY PRN; Protocol PRN Reason: Rash Vitamin D (Cholecalciferol (Vitamin D3) 25 Mcg Tablet) 25 mcg PO DAILY [facility] Last Admin: 01/09/24 08:08 Dose: 25 mcg Documented By: LEONIDES Labs 01/09/24 08:49 01/09/24 08:49 Labs: Laboratory Results - last 24 hr 01/09/24 08:49 MCV 103.3 H MCH 34.8 H MCHC 33.7 RDW 14.9 Plt Count 248 MPV 10.9 Absolute Nucleated RBC 0.000 Nucleated RBC % (auto) 0.0 Anion Gap 18 Estim Creat Clear Calc 71.1 Estimated GFR > 60 Random Glucose 198 H Calcium 9.3 Magnesium 2.1 Microbiology Microbiology Results: Microbiology 01/07/24 13:02 Blood Culture - Preliminary Blood - Venous No growth after 24 hours. 01/07/24 12:47 Blood Culture - Preliminary Blood - Venous No growth after 24 hours. Assessment and Plan (1) Asthma exacerbation in COPD: Status: Acute Assessment and Plan: d3 78yo M with COPD on 2-3 home O2 prn, HLD, BPH, chronic low back pain presenting with dyspnea + productive cough x3-4d, admitted for hypoxia due to COPD exacerbation acute-chronic hypoxic respiratory failure due to COPD exacerbation - wean O2 support as tolerated, has 2-3L O2 prn at home - methylprednisolone 5/15-, transition to prednisone taper upon discharge - standing/prn nebs - ceftriaxone 01/06-01/08, azithromycin 01/06-01/11 - continue Trelegy + theophylline NSVT - Cardiology consult. Change albuterol to levalbuterol. K/Mg normal. - TTE 10/20/23: - The left ventricular systolic function is normal. The calculated ejection fraction is 65% by biplane method. - No obvious valvular pathology seen on this study. HLD - continue statin BPH - continue tamuslosin mood disorder - bupropion chronic low back pain - continue pregabalin, fentanyl patch VTE ppx - LMWH dispo - likely home tomorrow In my clinical judgment, the patient requires continued inpatient hospitalization for the following reasons: IV ABX, oxygen, cardiac evaluation Total time managing care of this patient today: 35 minutes. Quality Stroke Does the patient have a stroke diagnosis?: No VTE Prior VTE?: No VTE Risk Level:: Medical - moderate - high VTE Device Contraindication: Treatment Not Indicated VTE Drug Contraindication: N/A - Med Ordered
--- NOTE | 2024-01-09 13:28 | ECG_ITS ---
Test Reason : TACHYCARDIA Blood Pressure : / mmHG Vent. Rate : 112 BPM Atrial Rate : 120 BPM P-R Int : 208 ms QRS Dur : 100 ms QT Int : 324 ms P-R-T Axes : 085 014 049 degrees QTc Int : 442 ms Sinus tachycardia with occasional Premature ventricular complexes and PVCs Otherwise normal ECG When compared with ECG of 08-JAN-2024 13:38, Premature supraventricular complexes are no longer Present Referred By: Justin Tom Electronically Signed By:MELLISA RICCI MD
[2024-01-09] MEDS: Metoprolol Succinate ER 25 MG TAB.ER.24H PO (13:43)
--- NOTE | 2024-01-09 13:44 | PM.EVENT ---
Event Note Date of Service: 01/09/24 Event Note: Pt suddenly went into SVT vs A flutter with rate 146, BP 131/64. Competely asymptomatic. 12-lead done but by then pt had broke into sinus tachycardia with PACs + PVCs. Will start metoprolol succinate 25 mg daily, discuss with Cardiology. Time Spent With Patient Time: Total time managing care of this patient today ____ minutes.
[2024-01-09] MEDS: Adenosine 6 MG/2 ML VIAL IVPUSH (15:03)
[2024-01-09] MEDS: Adenosine 6 MG/2 ML VIAL 12 MG IVPUSH (15:09)
[2024-01-09] MEDS: dilTIAZem HCL 125 MG in 0.9 % Sodium Chloride 100 ML IVCONT (15:18)
[2024-01-09] MEDS: dilTIAZem HCL 50 MG/10 ML VIAL 20 MG IVPUSH (15:19)
[2024-01-09] MEDS: Enoxaparin Sodium 40 MG/0.4 ML SYRINGE SUBCUT (15:36)
--- NOTE | 2024-01-09 16:27 | PM.EVENT ---
Event Note Date of Service: 01/09/24 Event Note: In the afternoon, pt developed SVT with rate in the 140s-150s. BP normal. Failed to terminate with vagal maneuvers x2. Failed to terminate with adenosine 6 mg x1 then 12 mg x1. Discussed with Cardiology. Pt started on diltiazem drip after loading 20 mg IV. Currently at 10 mg/hr. Time Spent With Patient Time: Total time managing care of this patient today ____ minutes.
[2024-01-09] MEDS: Tamsulosin HCL 0.4 MG CAPSULE PO (22:18)
[2024-01-09] MEDS: polyethylene glycoL 3350 17 GM POWD.PACK PO (22:21)
[2024-01-10] VITALS (7 sets, daily range): BP systolic 125–151; BP diastolic 58–70; PULSE 57–67; RESP 18–20; TEMP 36.2–36.8; O2SAT 93–97
[2024-01-10] MEDS: methylPREDNISolone Sod Succ 40 MG/ML VIAL IVPUSH ×2 (00:14→14:47)
[2024-01-10] MEDS: Multivitamin TABLET 1 TAB PO (10:47)
[2024-01-10] MEDS: Cholecalciferol (Vitamin D3) 25 MCG TABLET PO (10:47)
[2024-01-10] MEDS: Metoprolol Succinate ER 25 MG TAB.ER.24H PO (10:47)
[2024-01-10] MEDS: Atorvastatin Calcium 10 MG TABLET PO (10:47)
[2024-01-10] MEDS: Pyridoxine HCl (Vitamin B6) 50 MG TABLET PO (10:47)
[2024-01-10] MEDS: Pregabalin 75 MG CAPSULE PO ×2 (10:47→19:54)
[2024-01-10] MEDS: 0.9 % Sodium Chloride Flush 3 ML SYRINGE IVFLUSH ×3 (10:48→19:55)
--- NOTE | 2024-01-10 13:56 | PM.PNCARD ---
Subjective Subjective Date of Service: 01/10/24 Principal diagnosis: Paroxysmal atrial flutter Interval history: Patient developed rapid heart rate narrow complex yesterday. Initially felt like SVT but was given adenosine and subsequently broke with Cardizem drip. He has intermittent PVCs suggested that this is an atrial origin arrhythmia not involving the ventricle most likely atrial tachycardia or atrial flutter more likely atrial flutter given heart rate of 150 beats per minute. Currently asymptomatic. Review of Systems Constitutional: Reports no additional constitutional complaints Cardiovascular: Reports palpitations and Reports dyspnea on exertion Respiratory: Reports dyspnea on exertion and Reports wheezing Reports system reviewed and no additional complaints, except as documented Endocrine: Reports palpitations Allergic/Immunologic: Reports wheezing Physical Exam Vital Signs: Last Vital Signs Temp 98.2 F 01/10/24 10:43 Pulse 67 01/10/24 10:43 Resp 18 01/10/24 10:43 BP 125/58 L 01/10/24 10:43 Pulse Ox 96 01/10/24 10:43 O2 Del Method Nasal Cannula 01/10/24 10:43 O2 Flow Rate 2 01/10/24 10:43 Oxygen Flow Rate 2 01/07/24 11:24 BMI result Body Mass Index 26.9 Const General: cooperative, alert and awake Nutritional Appearance: average body habitus Orientation/consciousness: patient oriented x3 Neck Neck: Yes trachea midline, Yes supple and Yes no JVD Resp Effort & Inspection: normal respiratory effort and decreased respiratory effort Auscultation: wheezes scattered wheezes Cardio Jugular venous distension: no JVD Palpation: normal PMI Rate: regular rate Rhythm: regular rhythm Heart sounds: S1 normal heart sound present, S2 normal heart sound present, no click, no gallops and no murmurs Neuro General: patient oriented x3 and no focal motor deficits Extrem General: Yes no clubbing, cyanosis or edema Objective Labs and Meds 01/09/24 08:49 01/09/24 08:49 Progress Note: A&P Assessment and plan (1) Paroxysmal atrial flutter: Status: Acute Assessment and Plan: Paroxysmal atrial flutter in this elderly gentleman with COPD exacerbation, not uncommon arrhythmias inpatient with severe COPD. At this point time would suggest to switch to oral Cardizem 240 mg daily. Will require oral anticoagulation therapy consider Eliquis 5 mg b.i.d.. Need for oral anticoagulation therapy was discussed. Switch to Xopenex. Will sign of the case and follow-up as outpatient Time Spent With Patient Time: Total time managing care of this patient today ____ minutes. Progress Note: Quality Stroke Does the patient have a stroke diagnosis?: No Procedures Date of Service Date of Service: 01/10/24
[2024-01-10] MEDS: Azithromycin 500 MG in 0.9 % Sodium Chloride 250 ML 125 MG IV (14:47)
[2024-01-10] MEDS: Enoxaparin Sodium 40 MG/0.4 ML SYRINGE SUBCUT (16:15)
--- NOTE | 2024-01-10 16:30 | P.PNIM_ITS ---
Subjective Subjective Date of Service: 01/10/24 Interval History: Feeling better still complaining of shortness of breath, denies chest pain, no palpitations, no orthopnea, no PND, no fevers, no chills, no acute issues, heart rate improved now on 70s, IV Cardizem on hold. Review of Systems All other system reviewed and negative Physical Exam 2 Vital Signs: Vital Signs: Last Vital Signs Temp 97.7 F 01/10/24 15:19 Pulse 57 01/10/24 15:19 Resp 20 01/10/24 15:19 BP 141/64 H 01/10/24 15:19 Pulse Ox 93 01/10/24 15:19 O2 Del Method Nasal Cannula 01/10/24 15:19 O2 Flow Rate 2 01/10/24 15:19 Oxygen Flow Rate 2 01/07/24 11:24 BMI result Body Mass Index 26.9 Const: Other: Gen: Awake alert x3, in no acute distress HEENT: sclera anicteric, moist mucus membranes Neck: supple, no JVD Lungs: scattered expiratory wheezes, prolonged expiration Heart: regular rate and rhythm, no murmurs Abd: soft, non-tender, non-distended Ext: no edema Skin: warm/well-perfused Neuro: alert and oriented x3, no focal findings Psych: appropriate affect Objective Data Active Medications Acetaminophen (Acetaminophen 325 Mg Tablet) 650 mg PO Q6H PRN PRN Reason: Fever, mild pain, or headache Atorvastatin Calcium (Atorvastatin Calcium 10 Mg Tablet) 10 mg PO DAILY [facility] Last Admin: 01/10/24 10:47 Dose: 10 mg Documented By: CARMELO Calcium Carbonate (Calcium Carbonate 750 Mg Tab.Chew) 750 mg PO Q6H PRN PRN Reason: Heartburn Enoxaparin Sodium (Enoxaparin Sodium 40 Mg/0.4 Ml Syringe) 40 mg SUBCUT Q24H [facility] Last Admin: 01/10/24 16:15 Dose: 40 mg Documented By: LORRIE Fentanyl (Fentanyl 100 Mcg Patch.Td72) 100 mcg TRANSDERMA Q3D@0000 [facility] Last Admin: 01/08/24 01:49 Dose: 100 mcg Documented By: SHANELL Fluticasone/Umeclidinium/Vilanterol (Fluticasone/Umeclidinium/Vilanterol 100/62.5/25 Blst.W.Dev) 1 puff INHALE RDAILY [facility] Last Admin: 01/10/24 08:16 Dose: Not Given Documented By: TAWANA Non-Admin Reason: Patient Refused Guaifenesin/Dextromethorphan (Guaifenesin Dm 200/20/10 Ml 10 Ml Syrup) 10 ml PO Q6H PRN PRN Reason: Cough Last Admin: 01/08/24 13:39 Dose: 10 ml Documented By: DIA Azithromycin 500 mg/ Sodium (Chloride) 250 mls @ 125 mls/hr IV Q24H [facility] Last Admin: 01/10/24 14:47 Dose: 125 mls/hr Documented By: CARMELO Diltiazem HCl 125 mg/ Sodium (Chloride) 125 mls @ 0 mls/hr IVCONT .Q0M [facility]; Protocol Last Titration: 01/09/24 18:05 Dose: 0 mg/hr, 0 mls/hr Documented By: DEMETRIO Levalbuterol HCl (Levalbuterol Hcl 1.25 Mg/3 Ml Vial.Neb) 1.25 mg INHALE RQ4H PRN PRN Reason: Shortness of Breath/Wheezing Magnesium Hydroxide (Milk Of Magnesia 30 Ml Oral.Susp) 30 ml PO DAILY PRN PRN Reason: Constipation Melatonin (Melatonin 3 Mg Tablet) 6 mg PO BEDTIME PRN PRN Reason: Insomnia Methylprednisolone Sodium Succinate (Methylprednisolone Sod Succ 40 Mg/Ml Vial) 40 mg IVPUSH Q12H [facility] Last Admin: 01/10/24 14:47 Dose: 40 mg Documented By: CARMELO Metoprolol Succinate (Metoprolol Succinate Er 25 Mg Tab.Er.24h) 25 mg PO DAILY [facility]; Protocol Last Admin: 01/10/24 10:47 Dose: 25 mg Documented By: CARMELO Multivitamins/Vitamin C (Multivitamin Tablet) 1 tab PO DAILY [facility] Last Admin: 01/10/24 10:47 Dose: 1 tab Documented By: CARMELO Neomycin/Polymyxin/Hydrocortisone (Neomycin/Polymyxin/Hc Otic Nazia Bottle) 2 drop EAR-BOTH QID PRN PRN Reason: Wax/ infection Non-Formulary Medication (Latanoprostene Bunod [Vyzulta]) 1 drop EYE-BOTH BEDTIME [facility] Non-Formulary Medication (Bupropion Hcl) 150 mg PO DAILY [facility] Polyethylene Glycol (Polyethylene Glycol 3350 17 Gm Powd.Pack) 17 gm PO DAILY PRN PRN Reason: Constipation Last Admin: 01/09/24 22:21 Dose: 17 gm Documented By: SUNNY Pregabalin (Pregabalin 75 Mg Capsule) 75 mg PO BID [facility] Last Admin: 01/10/24 10:47 Dose: 75 mg Documented By: CARMELO Pyridoxine HCl (Pyridoxine Hcl (Vitamin B6) 50 Mg Tablet) 50 mg PO DAILY [facility] Last Admin: 01/10/24 10:47 Dose: 50 mg Documented By: CARMELO Sodium Chloride (0.9 % Sodium Chloride Flush 3 Ml Syringe) 3 ml IVFLUSH QSHIFT [facility] Last Admin: 01/10/24 16:16 Dose: 3 ml Documented By: LORRIE Tamsulosin HCl (Tamsulosin Hcl 0.4 Mg Capsule) 0.4 mg PO BEDTIME [facility] Last Admin: 01/09/24 22:18 Dose: 0.4 mg Documented By: SUNNY Triamcinolone Acetonide (Triamcinolone Acet 0.1 % Cream 15 Gm Tube) 1 appl TOPICAL DAILY PRN; Protocol PRN Reason: Rash Vitamin D (Cholecalciferol (Vitamin D3) 25 Mcg Tablet) 25 mcg PO DAILY [facility] Last Admin: 01/10/24 10:47 Dose: 25 mcg Documented By: CARMELO Labs 01/09/24 08:49 01/09/24 08:49 Microbiology Microbiology Results: Microbiology 01/07/24 13:02 Blood Culture - Preliminary Blood - Venous No growth after 48 hours. 01/07/24 12:47 Blood Culture - Preliminary Blood - Venous No growth after 48 hours. Assessment and Plan (1) Paroxysmal atrial flutter: Status: Acute (2) Cardiac arrhythmia: Status: Acute Plan 78yo M with COPD on 2-3 home O2 prn, HLD, BPH, chronic low back pain, presenting with dyspnea + productive cough x3-4d, admitted for hypoxia due to COPD exacerbation acute-chronic hypoxic respiratory failure due to COPD exacerbation - wean O2 support as tolerated, has 2-3L O2 prn at home - continue IV methylprednisolone 01/06-, will transition to by mouth prednisone once clinically improved - will add standing Xopenex and continue prn nebs - status post ceftriaxone 01/06-01/08, azithromycin 01/06-01/11 - continue Trelegy - theophylline discontinued due to atrial tachycardia Atrial arrhythmia/atrial flutter Patient noted to have SVT rate 140s to 150s treated with adenosine x2 with no affect later broke with IV diltiazem, patient evaluated by [facility] and due to rate of 150s it was felt the patient had atrial flutter Today patient had no recurrent episodes denies chest pain or palpitation - TTE 10/20/23: Showed - The left ventricular systolic function is normal. The calculated ejection fraction is 65% by biplane method. - No obvious valvular pathology seen on this study. Will DC IV Cardizem drip and place patient on Eliquis and by mouth Cardizem CD 120 mg daily follow clinical course. HLD - continue statin BPH - continue tamuslosin mood disorder - bupropion chronic low back pain - continue pregabalin, fentanyl patch VTE ppx - Eliquis orally dispo - home when medically stable In my clinical judgment, the patient requires continued inpatient hospitalization for the following reasons: IV ABX, oxygen, tele monitor/medication adjustment for atrial flutter Quality Stroke Does the patient have a stroke diagnosis?: No VTE Prior VTE?: No VTE Risk Level:: Medical - moderate - high VTE Device Contraindication: Treatment Not Indicated VTE Drug Contraindication: N/A - Med Ordered
[2024-01-10] MEDS: dilTIAZem HCL CD 120 MG CAP.ER.DEG PO (17:49)
[2024-01-10] MEDS: Apixaban 5 MG TABLET PO (19:54)
[2024-01-10] MEDS: Tamsulosin HCL 0.4 MG CAPSULE PO (19:54)
[2024-01-10] MEDS: levalbuterol HCL 1.25 MG/3 ML VIAL.NEB INHALE (20:05)
[2024-01-11] VITALS (8 sets, daily range): BP systolic 119–158; BP diastolic 53–69; PULSE 51–67; RESP 18–20; TEMP 36.2–36.9; O2SAT 93–97
[2024-01-11] MEDS: fentaNYL 100 MCG PATCH.TD72 TRANSDERMA (01:24)
[2024-01-11] MEDS: methylPREDNISolone Sod Succ 40 MG/ML VIAL IVPUSH ×2 (01:27→16:49)
[2024-01-11] MEDS: levalbuterol HCL 1.25 MG/3 ML VIAL.NEB INHALE ×3 (07:53→19:43)
[2024-01-11] MEDS: Atorvastatin Calcium 10 MG TABLET PO ×2 (08:04→08:11)
[2024-01-11] MEDS: Cholecalciferol (Vitamin D3) 25 MCG TABLET PO (08:04)
[2024-01-11] MEDS: Pregabalin 75 MG CAPSULE PO ×2 (08:04→20:12)
[2024-01-11] MEDS: Pyridoxine HCl (Vitamin B6) 50 MG TABLET PO ×2 (08:04→08:12)
[2024-01-11] MEDS: dilTIAZem HCL CD 120 MG CAP.ER.DEG PO ×2 (08:04→08:11)
[2024-01-11] MEDS: Metoprolol Succinate ER 25 MG TAB.ER.24H PO ×2 (08:04→08:11)
[2024-01-11] MEDS: Multivitamin TABLET 1 TAB PO (08:05)
[2024-01-11] MEDS: Apixaban 5 MG TABLET PO ×3 (08:05→20:34)
[2024-01-11] MEDS: 0.9 % Sodium Chloride Flush 3 ML SYRINGE IVFLUSH ×3 (08:05→20:14)
[2024-01-11 08:47] LABS: Thyroid Stimulating Hormone 0.06 uIU/mL (0.32-4.0)
[2024-01-11] MEDS: dilTIAZem HCL CD 240 MG CAP.ER.DEG PO (10:01)
--- NOTE | 2024-01-11 12:56 | PM.PNCARD ---
Subjective Subjective Date of Service: 01/11/24 Principal diagnosis: Paroxysmal atrial flutter Interval history: No significant prolonged atrial flutter. PACs and short runs noted. Review of Systems Review of Systems Yes all other systems are reviewed and are negative Physical Exam Vital Signs: Last Vital Signs Temp 98.0 F 01/11/24 10:45 Pulse 58 01/11/24 10:45 Resp 20 01/11/24 10:45 BP 133/63 01/11/24 10:45 Pulse Ox 94 01/11/24 10:45 O2 Del Method Nasal Cannula 01/11/24 10:45 O2 Flow Rate 1 01/11/24 10:45 Oxygen Flow Rate 2 01/07/24 11:24 BMI result Body Mass Index 26.9 Const Other: Gen: Awake alert x3, in no acute distress HEENT: sclera anicteric, moist mucus membranes Neck: supple, no JVD Lungs: scattered expiratory wheezes, prolonged expiration Heart: regular rate and rhythm, no murmurs Abd: soft, non-tender, non-distended Ext: no edema Skin: warm/well-perfused Neuro: alert and oriented x3, no focal findings Psych: appropriate affect Objective Labs and Meds 01/09/24 08:49 01/09/24 08:49 Lab results: Laboratory Results - last 24 hr 01/11/24 07:26 Hold Purple Top SEE NOTE TSH 0.06 L Progress Note: A&P Assessment and plan (1) Paroxysmal atrial flutter: Status: Acute Assessment and Plan: Paroxysmal atrial flutter, currently suppressed with Cardizem therapy. Continue Cardizem therapy. Avoid stimulants. Agree with switch to Xopenex. Full oral anticoagulation with Eliquis. Continue manage his pulmonary condition aggressively. Will follow-up with outpatient after workup. Thank you for allowing me to partake in his care Time Spent With Patient Time: Total time managing care of this patient today ____ minutes. Progress Note: Quality Stroke Does the patient have a stroke diagnosis?: No Procedures Date of Service Date of Service: 01/11/24
--- NOTE | 2024-01-11 12:59 | P.PNIM_ITS ---
Subjective Subjective Date of Service: 01/11/24 Interval History: Feeling better, complaining of persistent shortness of breath and cough, no fevers, no chills, has been in bed since admission complaining of back discomfort, tolerating diet no nausea no vomiting no abdominal pain no other acute issues overnight. Review of Systems All other system reviewed and negative Physical Exam 2 Vital Signs: Vital Signs: Last Vital Signs Temp 98.0 F 01/11/24 10:45 Pulse 58 01/11/24 10:45 Resp 20 01/11/24 10:45 BP 133/63 01/11/24 10:45 Pulse Ox 94 01/11/24 10:45 O2 Del Method Nasal Cannula 01/11/24 10:45 O2 Flow Rate 1 01/11/24 10:45 Oxygen Flow Rate 2 01/07/24 11:24 BMI result Body Mass Index 26.9 Const: Other: Gen: Awake alert x3, in no acute distress HEENT: sclera anicteric, moist mucus membranes Neck: supple, no JVD Lungs: scattered expiratory wheezes, no use of accessory muscles Heart: regular rate and rhythm, no murmurs Abd: soft, non-tender, non-distended Ext: no edema Skin: warm/well-perfused Neuro: alert and oriented x3, no focal findings Psych: appropriate affect Objective Data Active Medications Acetaminophen (Acetaminophen 325 Mg Tablet) 650 mg PO Q6H PRN PRN Reason: Fever, mild pain, or headache Apixaban (Apixaban 5 Mg Tablet) 5 mg PO BID [facility] 234 BEDS AT [facility] Last Admin: 01/11/24 08:11 Dose: 5 mg Documented By: CARMELO Atorvastatin Calcium (Atorvastatin Calcium 10 Mg Tablet) 10 mg PO DAILY [facility] 234 BEDS AT [facility] Last Admin: 01/11/24 08:11 Dose: 10 mg Documented By: CARMELO Calcium Carbonate (Calcium Carbonate 750 Mg Tab.Chew) 750 mg PO Q6H PRN PRN Reason: Heartburn Diltiazem HCl (Diltiazem Hcl Cd 240 Mg Cap.Er.Deg) 240 mg PO DAILY [facility] 234 BEDS AT THE [facility]; Protocol Last Admin: 01/11/24 10:01 Dose: 240 mg Documented By: CARMELO Fentanyl (Fentanyl 100 Mcg Patch.Td72) 100 mcg TRANSDERMA Q3D@0000 [facility]S [facility] 234 BEDS AT THE [facility] Last Admin: 01/11/24 01:24 Dose: 100 mcg Documented By: GREGORIO Fluticasone/Umeclidinium/Vilanterol (Fluticasone/Umeclidinium/Vilanterol 100/62.5/25 Blst.W.Dev) 1 puff INHALE RDAILY [facility] 234 BEDS AT [facility] Last Admin: 01/11/24 07:55 Dose: Not Given Documented By: TAWANA Non-Admin Reason: Patient Refused Guaifenesin/Dextromethorphan (Guaifenesin Dm 200/20/10 Ml 10 Ml Syrup) 10 ml PO Q6H PRN PRN Reason: Cough Last Admin: 01/08/24 13:39 Dose: 10 ml Documented By: DIA Azithromycin 500 mg/ Sodium (Chloride) 250 mls @ 125 mls/hr IV Q24H [facility]S [facility] 234 BEDS AT [facility] Last Infusion: 01/10/24 17:16 Dose: Infused Documented By: LORRIE Levalbuterol HCl (Levalbuterol Hcl 1.25 Mg/3 Ml Vial.Neb) 1.25 mg INHALE RQ4H PRN PRN Reason: Shortness of Breath/Wheezing Levalbuterol HCl (Levalbuterol Hcl 1.25 Mg/3 Ml Vial.Neb) 1.25 mg INHALE RTID COUNTS INCLUDE 234 BEDS AT THE [facility] Last Admin: 01/11/24 07:53 Dose: 1.25 mg Documented By: TAWANA Magnesium Hydroxide (Milk Of Magnesia 30 Ml Oral.Susp) 30 ml PO DAILY PRN PRN Reason: Constipation Melatonin (Melatonin 3 Mg Tablet) 6 mg PO BEDTIME PRN PRN Reason: Insomnia Methylprednisolone Sodium Succinate (Methylprednisolone Sod Succ 40 Mg/Ml Vial) 40 mg IVPUSH Q12H [facility]S [facility]CLUDE 234 BEDS AT [facility] Last Admin: 01/11/24 01:27 Dose: 40 mg Documented By: GREGORIO Multivitamins/Vitamin C (Multivitamin Tablet) 1 tab PO DAILY [facility] 234 BEDS AT [facility] Last Admin: 01/11/24 08:05 Dose: 1 tab Documented By: CARMELO Neomycin/Polymyxin/Hydrocortisone (Neomycin/Polymyxin/Hc Otic Nazia Bottle) 2 drop EAR-BOTH QID PRN PRN Reason: Wax/ infection Non-Formulary Medication (Latanoprostene Bunod [Vyzulta]) 1 drop EYE-BOTH BEDTIME [facility]S INCLUDE 234 BEDS AT THE [facility] Non-Formulary Medication (Bupropion Hcl) 150 mg PO DAILY [facility] 234 BEDS AT [facility] Polyethylene Glycol (Polyethylene Glycol 3350 17 Gm Powd.Pack) 17 gm PO DAILY PRN PRN Reason: Constipation Last Admin: 01/09/24 22:21 Dose: 17 gm Documented By: SUNNY Pregabalin (Pregabalin 75 Mg Capsule) 75 mg PO BID [facility]CLUDE 234 BEDS AT [facility] Last Admin: 01/11/24 08:04 Dose: 75 mg Documented By: CARMELO Pyridoxine HCl (Pyridoxine Hcl (Vitamin B6) 50 Mg Tablet) 50 mg PO DAILY [facility] 234 BEDS AT [facility] Last Admin: 01/11/24 08:12 Dose: 50 mg Documented By: CARMELO Sodium Chloride (0.9 % Sodium Chloride Flush 3 Ml Syringe) 3 ml IVFLUSH QSHIFT [facility]S [facility]CLUDE 234 BEDS AT [facility] Last Admin: 01/11/24 08:05 Dose: 3 ml Documented By: CARMELO Tamsulosin HCl (Tamsulosin Hcl 0.4 Mg Capsule) 0.4 mg PO BEDTIME [facility]S [facility]CLUDE 234 BEDS AT [facility] Last Admin: 01/10/24 19:54 Dose: 0.4 mg Documented By: GREGORIO Triamcinolone Acetonide (Triamcinolone Acet 0.1 % Cream 15 Gm Tube) 1 appl TOPICAL DAILY PRN; Protocol PRN Reason: Rash Vitamin D (Cholecalciferol (Vitamin D3) 25 Mcg Tablet) 25 mcg PO DAILY [facility] 234 BEDS AT [facility] Last Admin: 01/11/24 08:04 Dose: 25 mcg Documented By: CARMELO Labs 01/09/24 08:49 01/09/24 08:49 Labs: Laboratory Results - last 24 hr 01/11/24 07:26 Hold Purple Top SEE NOTE TSH 0.06 L Assessment and Plan (1) Paroxysmal atrial flutter: Status: Acute (2) Cardiac arrhythmia: Status: Acute Plan 78yo M with COPD on 2-3 home O2 prn, HLD, BPH, chronic low back pain, presenting with dyspnea + productive cough x3-4d, admitted for hypoxia due to COPD exacerbation acute-chronic hypoxic respiratory failure due to COPD exacerbation - persistent shortness of breath gradually improving - wean O2 support as tolerated, use 2.5 L nasal cannula at night, and as needed during daytime. - continue IV methylprednisolone 01/06-, will transition to by mouth prednisone once clinically improved - will place on DuoNeb t.i.d. since heart rate stable and continue Xopenex prn - status post ceftriaxone 01/06-01/08, on azithromycin 01/06-01/11 - continue Trelegy - theophylline discontinued due to atrial tachycardia -recommend out of bed to chair/ ambulation Atrial arrhythmia/atrial flutter Patient noted to have SVT rate 140s to 150s treated with adenosine x2 with no affect later broke with IV diltiazem, patient evaluated by uat tester and due to rate of 150s it was felt the patient had atrial flutter no recurrent episodes denies chest pain or palpitation , in normal sinus rhythm - TTE 10/20/23: Showed left ventricular systolic function is normal. The calculated ejection fraction is 65% by biplane method. - No obvious valvular pathology seen on this study. Started on Eliquis and Cardizem CD 240 mg daily, and discontinue metoprolol HLD - continue statin BPH - continue tamuslosin mood disorder - bupropion chronic low back pain - continue pregabalin, fentanyl patch VTE ppx - Eliquis orally dispo - home when medically stable In my clinical judgment, the patient requires continued inpatient hospitalization for the following reasons: IV ABX, oxygen, tele monitor/medication adjustment for atrial flutter Quality Stroke Does the patient have a stroke diagnosis?: No VTE Prior VTE?: No VTE Risk Level:: Medical - moderate - high VTE Device Contraindication: Treatment Not Indicated VTE Drug Contraindication: N/A - Med Ordered
[2024-01-11] MEDS: Azithromycin 500 MG in 0.9 % Sodium Chloride 250 ML 125 MG IV (14:30)
[2024-01-11] MEDS: Tamsulosin HCL 0.4 MG CAPSULE PO (20:13)
[2024-01-11] MEDS: guaiFENesin DM 200/20/10 ML 10 ML SYRUP PO (20:34)
[2024-01-12] VITALS (9 sets, daily range): BP systolic 118–153; BP diastolic 56–71; PULSE 56–76; RESP 16–20; TEMP 36.1–36.8; O2SAT 96–100
[2024-01-12] MEDS: methylPREDNISolone Sod Succ 40 MG/ML VIAL IVPUSH ×2 (00:40→13:26)
[2024-01-12] MEDS: levalbuterol HCL 1.25 MG/3 ML VIAL.NEB INHALE (08:17)
[2024-01-12] MEDS: Fluticasone/Umeclidinium/Vilanterol 100/62.5/25 BLST.W.DEV 1 PUFF INHALE (08:17)
[2024-01-12] MEDS: Pregabalin 75 MG CAPSULE PO ×2 (08:58→21:52)
[2024-01-12] MEDS: Pyridoxine HCl (Vitamin B6) 50 MG TABLET PO (08:59)
[2024-01-12] MEDS: Cholecalciferol (Vitamin D3) 25 MCG TABLET PO (08:59)
[2024-01-12] MEDS: dilTIAZem HCL CD 240 MG CAP.ER.DEG PO (08:59)
[2024-01-12] MEDS: Atorvastatin Calcium 10 MG TABLET PO (08:59)
[2024-01-12] MEDS: Multivitamin TABLET 1 TAB PO (09:00)
[2024-01-12] MEDS: Apixaban 5 MG TABLET PO ×2 (09:00→21:53)
[2024-01-12] MEDS: buPROPion HCl XL 150 MG TAB.ER.24H PO (09:00)
[2024-01-12] MEDS: 0.9 % Sodium Chloride Flush 3 ML SYRINGE IVFLUSH ×3 (09:01→21:53)
--- NOTE | 2024-01-12 11:06 | MHC.CM.PN ---
ANTIC PT TO BE MEDICALLY CLEARED FOR DC, P.T. RECOMMENDING NO HOME SERVICES/STR, W/RESUMP OF MOW AND O2 AT [facility], PT WILL ARRANGE TRANSPORT.
--- NOTE | 2024-01-12 12:50 | P.PNIM_ITS ---
Subjective Subjective Date of Service: 01/12/24 Interval History: Complaining of shortness of breath with exertion, finger oximetry 86% on 1 L, no fevers no chills tolerating diet no nausea, no vomiting, or abdominal pain, no acute events overnight. Review of Systems All other system reviewed and negative Physical Exam 2 Vital Signs: Vital Signs: Last Vital Signs Temp 98.0 F 01/12/24 11:04 Pulse 66 01/12/24 11:04 Resp 20 01/12/24 11:04 BP 153/71 H 01/12/24 11:04 Pulse Ox 96 01/12/24 11:04 O2 Del Method Nasal Cannula 01/12/24 11:04 O2 Flow Rate 2 01/12/24 11:04 Oxygen Flow Rate 2 01/07/24 11:24 BMI result Body Mass Index 26.9 Const: Other: Gen: Awake alert x3, in no acute distress HEENT: sclera anicteric, moist mucus membranes Neck: supple, no JVD Lungs: expiratory wheeze, no use of accessory muscles Heart: regular rate and rhythm, no murmurs Abd: soft, non-tender, non-distended Ext: no edema Skin: warm/well-perfused Neuro: alert and oriented x3, no focal findings Psych: appropriate affect Objective Data Active Medications Acetaminophen (Acetaminophen 325 Mg Tablet) 650 mg PO Q6H PRN PRN Reason: Fever, mild pain, or headache Apixaban (Apixaban 5 Mg Tablet) 5 mg PO BID [facility] Last Admin: 01/12/24 09:00 Dose: 5 mg Documented By: KARSON Atorvastatin Calcium (Atorvastatin Calcium 10 Mg Tablet) 10 mg PO DAILY [facility] [place] Last Admin: 01/12/24 08:59 Dose: 10 mg Documented By: KARSON Bupropion HCl (Bupropion Hcl Xl 150 Mg Tab.Er.24h) 150 mg PO DAILY [facility] [place] Last Admin: 01/12/24 09:00 Dose: 150 mg Documented By: KARSON Calcium Carbonate (Calcium Carbonate 750 Mg Tab.Chew) 750 mg PO Q6H PRN PRN Reason: Heartburn Diltiazem HCl (Diltiazem Hcl Cd 240 Mg Cap.Er.Deg) 240 mg PO DAILY [facility] [place]; Protocol Last Admin: 01/12/24 08:59 Dose: 240 mg Documented By: KARSON Fentanyl (Fentanyl 100 Mcg Patch.Td72) 100 mcg TRANSDERMA Q3D@0000 [facility] [place] Last Admin: 01/11/24 01:24 Dose: 100 mcg Documented By: GREGORIO Fluticasone/Umeclidinium/Vilanterol (Fluticasone/Umeclidinium/Vilanterol 100/62.5/25 Blst.W.Dev) 1 puff INHALE RDAILY [facility] [place] Last Admin: 01/12/24 08:17 Dose: 1 puff Documented By: PERCY Guaifenesin/Dextromethorphan (Guaifenesin Dm 200/20/10 Ml 10 Ml Syrup) 10 ml PO Q6H PRN PRN Reason: Cough Last Admin: 01/11/24 20:34 Dose: 10 ml Documented By: JANES Azithromycin 500 mg/ Sodium (Chloride) 250 mls @ 125 mls/hr IV Q24H [facility] [place] Last Infusion: 01/11/24 17:37 Dose: Infused Documented By: CARMELO Levalbuterol HCl (Levalbuterol Hcl 1.25 Mg/3 Ml Vial.Neb) 1.25 mg INHALE RQ4H PRN PRN Reason: Shortness of Breath/Wheezing Levalbuterol HCl (Levalbuterol Hcl 1.25 Mg/3 Ml Vial.Neb) 1.25 mg INHALE RTID [facility] [place] Last Admin: 01/12/24 08:17 Dose: 1.25 mg Documented By: PERCY Magnesium Hydroxide (Milk Of Magnesia 30 Ml Oral.Susp) 30 ml PO DAILY PRN PRN Reason: Constipation Melatonin (Melatonin 3 Mg Tablet) 6 mg PO BEDTIME PRN PRN Reason: Insomnia Methylprednisolone Sodium Succinate (Methylprednisolone Sod Succ 40 Mg/Ml Vial) 40 mg IVPUSH Q12H [facility] [place] Last Admin: 01/12/24 00:40 Dose: 40 mg Documented By: JANES Multivitamins/Vitamin C (Multivitamin Tablet) 1 tab PO DAILY [facility] [place] Last Admin: 01/12/24 09:00 Dose: 1 tab Documented By: KARSON Neomycin/Polymyxin/Hydrocortisone (Neomycin/Polymyxin/Hc Otic Nazia Bottle) 2 drop EAR-BOTH QID PRN PRN Reason: Wax/ infection Polyethylene Glycol (Polyethylene Glycol 3350 17 Gm Powd.Pack) 17 gm PO DAILY PRN PRN Reason: Constipation Last Admin: 01/09/24 22:21 Dose: 17 gm Documented By: SUNNY Pregabalin (Pregabalin 75 Mg Capsule) 75 mg PO BID [facility] [place] Last Admin: 01/12/24 08:58 Dose: 75 mg Documented By: KARSON Pyridoxine HCl (Pyridoxine Hcl (Vitamin B6) 50 Mg Tablet) 50 mg PO DAILY [facility] [place] Last Admin: 01/12/24 08:59 Dose: 50 mg Documented By: KARSON Sodium Chloride (0.9 % Sodium Chloride Flush 3 Ml Syringe) 3 ml IVFLUSH QSHIFT [facility] [place] Last Admin: 01/12/24 09:01 Dose: 3 ml Documented By: KARSON Tamsulosin HCl (Tamsulosin Hcl 0.4 Mg Capsule) 0.4 mg PO BEDTIME [facility] [place] Last Admin: 01/11/24 20:13 Dose: 0.4 mg Documented By: JANES Triamcinolone Acetonide (Triamcinolone Acet 0.1 % Cream 15 Gm Tube) 1 appl TOPICAL DAILY PRN; Protocol PRN Reason: Rash Vitamin D (Cholecalciferol (Vitamin D3) 25 Mcg Tablet) 25 mcg PO DAILY [facility] [place] Last Admin: 01/12/24 08:59 Dose: 25 mcg Documented By: KARSON Labs 01/09/24 08:49 01/09/24 08:49 Assessment and Plan (1) Paroxysmal atrial flutter: Status: Acute (2) Cardiac arrhythmia: Status: Acute Plan 78yo M with COPD on 2-3 home O2 prn, HLD, BPH, chronic low back pain, presenting with dyspnea + productive cough x3-4d, admitted for hypoxia due to COPD exacerbation acute-chronic hypoxic respiratory failure due to COPD exacerbation - persistent shortness of breath , worse with oxygen - wean O2 support as tolerated, use 2.5 L nasal cannula at night, and as needed during daytime. - continue IV methylprednisolone 01/06-, - on DuoNeb t.i.d. since heart rate stable and continue Xopenex prn - status post ceftriaxone 01/06-01/08, on azithromycin 01/06-01/11 - continue Trelegy - theophylline discontinued due to atrial tachycardia -recommend out of bed to chair/ ambulation, close outpatient follow-up with pulmonology Atrial arrhythmia/new onset atrial flutter Patient noted to have SVT rate 140s to 150s treated with adenosine x2 with no affect later broke with IV diltiazem, patient evaluated by toter and due to rate of 150s it was felt the patient had atrial flutter no recurrent episodes denies chest pain or palpitation , in normal sinus rhythm - TTE 10/20/23: Showed left ventricular systolic function is normal. The calculated ejection fraction is 65% by biplane method. - No obvious valvular pathology seen on this study. Started on Eliquis and Cardizem CD 240 mg daily, and discontinue metoprolol HLD - continue statin BPH - continue tamuslosin mood disorder - bupropion chronic low back pain - continue pregabalin, fentanyl patch VTE ppx - Eliquis orally dispo - home when medically stable In my clinical judgment, the patient requires continued inpatient hospitalization for the following reasons: IV ABX, oxygen, tele monitor/medication adjustment for atrial flutter Quality Stroke Does the patient have a stroke diagnosis?: No VTE Prior VTE?: No VTE Risk Level:: Medical - moderate - high VTE Device Contraindication: Treatment Not Indicated VTE Drug Contraindication: N/A - Med Ordered
[2024-01-12] MEDS: Azithromycin 500 MG in 0.9 % Sodium Chloride 250 ML 125 MG IV (13:23)
[2024-01-12] MEDS: Albuterol/Iprat 2.5/0.5MG 3 ML AMPUL.NEB INHALE ×2 (15:06→20:37)
[2024-01-12] MEDS: guaiFENesin DM 200/20/10 ML 10 ML SYRUP PO (21:52)
[2024-01-12] MEDS: Tamsulosin HCL 0.4 MG CAPSULE PO (21:52)
[2024-01-12] MEDS: Acetaminophen 325 MG TABLET 650 MG PO (21:53)
[2024-01-12] MEDS: Melatonin 3 MG TABLET 6 MG PO (21:53)
[2024-01-13] VITALS: BP 128/59; PULSE 65; RESP 18; TEMP 36.7; O2SAT 94
[2024-01-13] MEDS: methylPREDNISolone Sod Succ 40 MG/ML VIAL IVPUSH (01:00)
[2024-01-13 04:00] VITALS: BP 133/63; PULSE 69; RESP 16; TEMP 36.5; O2SAT 95
[2024-01-13 07:43] VITALS: BP 136/63; PULSE 61; RESP 20; TEMP 36.5; O2SAT 94
[2024-01-13] MEDS: Albuterol/Iprat 2.5/0.5MG 3 ML AMPUL.NEB INHALE (08:16)
[2024-01-13] MEDS: Fluticasone/Umeclidinium/Vilanterol 100/62.5/25 BLST.W.DEV 1 PUFF INHALE (08:16)
[2024-01-13 08:17] VITALS: PULSE 61; RESP 20; O2SAT 97
[2024-01-13] MEDS: Cholecalciferol (Vitamin D3) 25 MCG TABLET PO (08:27)
[2024-01-13] MEDS: buPROPion HCl XL 150 MG TAB.ER.24H PO (08:27)
[2024-01-13] MEDS: Pregabalin 75 MG CAPSULE PO (08:28)
[2024-01-13] MEDS: Pyridoxine HCl (Vitamin B6) 50 MG TABLET PO (08:28)
[2024-01-13] MEDS: Multivitamin TABLET 1 TAB PO (08:28)
[2024-01-13] MEDS: Acetaminophen 325 MG TABLET 650 MG PO (08:28)
[2024-01-13] MEDS: dilTIAZem HCL CD 240 MG CAP.ER.DEG PO (08:28)
[2024-01-13] MEDS: Apixaban 5 MG TABLET PO (08:28)
[2024-01-13] MEDS: Atorvastatin Calcium 10 MG TABLET PO (08:28)
[2024-01-13] MEDS: 0.9 % Sodium Chloride Flush 3 ML SYRINGE IVFLUSH (08:31)
--- NOTE | 2024-01-13 11:22 | MHC.CM.PN ---
IMM 01/13/24, PT MEDICALLY CLEARED FOR DC W/RESUMPTION OF HOME O2 W/LINCARE PER PT'S SCRIPT PT ON 2-3L NC CONT, PT WILL ARRANGE TRANSPORT
--- NOTE | 2024-01-13 14:50 | P.DS_ITS ---
DS: Providers Provider Date of Service: 01/13/24 Date of admission: 01/07/24 15:07 Primary care physician: Nikita Rivera MD Consults: 01/09/24 08:37 Consult to Cardiology Routine Consulting Provider[place] [facility] [place] [facility] Reason for consultation: NSVT. Normal echo Sep 2023. COPD trigger DS: Diagnosis Discharge Diagnosis (1) Paroxysmal atrial flutter: Status: Acute (2) Cardiac arrhythmia: Status: Acute DS: Summary Hospital Course Hospital Course: History of presenting illness: Date of Service: 01/07/24 Attending physician on admission: Justin Tom Chief Complaint: SOB, cough, fatigue Pt is a 78-year-old male with a PMH significant for?COPD on 2-3L home O2 prn, HLD, BPH, chronic lower back pain, and arthritis who presents to the ED for evaluation of SOB, difficulty breathing, productive cough, and generalized weakness x3-4 days. Pt reports symptoms began this past weekend on Friday/Friday when he began experiencing a ?heavy cough with ?heavy? phlegm. Has had increased weakness and fatigue, SOB and difficultly breathing. Reports chest tightness associated with cough. Subjective fever and chills. No chest pain or palpitations. Denies N/V/D or abdominal pain. Patient has been increasingly using his home inhalers with minimal relief and wearing his prn O2 throughout most of the day. Reports chronically sleeps with 2.5L NC as night. In the ED pt was tachypneic up to 21, with soft BP as low, and hypoxic as low as 88% on RA. Labs were significant for stable chronic macrocytic anemia 11.7/35.0 and creatinine 1.38 (baseline around 1.10), otherwise grossly unremarkable. No leukocytosis. No significant electrolyte abnormalities. Tested negative for COVID, flu, RSV. CXR showed no acute disease. EKG demonstrated sinus rhythm with premature supraventricular complexes, but no evidence significant ST elevations or depressions. Pt was treated with DuoNeb, IVF, Solu-Medrol, cefepime, and azithromycin. Pt will be admitted to the hospital for treatment further evaluation of acute hypoxic respiratory failure in the setting of COPD exacerbation with likely superimposed pneumonia. Hospital course: 78yo M with COPD on 2-3L home O2, HLD, BPH, chronic low back pain, presented with dyspnea + productive cough x3-4d,and admitted for acute on chronic hypoxic respiratory failure due to COPD exacerbation. acute-chronic hypoxic respiratory failure due to COPD exacerbation admitted to medical floor treated with DuoNeb scheduled, IV steroids, ceftriaxone and azithromycin on 01/08 patient went into rapid heart rate in 140s, treated with adenosine with no response , later responded to IV diltiazem patient seen by final finisher forging dies and was diagnosed to have atrial flutter new onset therefore placed on Cardizem CD 240 mg and Eliquis since then patient remains in normal sinus rhythm, echo from 10/20/2023 showed normal left ventricular systolic function, EF 65%, no obvious valvular pathology, due to rapid heart rate theophylline and DuoNeb for discontinued at present patient is breathing better repeat chest x-ray shows basilar opacities likely atelectasis patient is being discharged home to on tapering dose of steroids, he finished course of antibiotics recommend to continue all home inhalers For all chronic medical issues including hyperlipidemia, BPH in mood disorder recommend to continue home medications chronic low back pain- continue pregabalin, fentanyl patch Time Attestation Discharge Coordination Time (in mins): 38 Quality: Safe Use of Opioids Does Pt have an Active Cancer Diagnosis on the Problem List?: No Quality: Stroke Does the patient have a stroke diagnosis?: No Physical Exam Vital Signs: Vital Signs: Last Vital Signs Temp 97.7 F 01/13/24 07:43 Pulse 61 01/13/24 08:17 Resp 20 01/13/24 08:17 BP 136/63 01/13/24 07:43 Pulse Ox 94 01/13/24 07:43 O2 Del Method Nasal Cannula 01/13/24 07:43 O2 Flow Rate 2 01/13/24 07:43 Oxygen Flow Rate 2 01/07/24 11:24 BMI result Body Mass Index 26.9 Const: Other: Gen: Awake alert x3, in no acute distress HEENT: sclera anicteric, moist mucus membranes Neck: supple, no JVD Lungs: b/l prolong exp with occasional wheeze, no use of accessory muscles Heart: regular rate and rhythm, no murmurs Abd: soft, non-tender, non-distended Ext: no edema Skin: warm/well-perfused Neuro: alert and oriented x3, no focal findings Psych: appropriate affect Discharge Plan Discharge Anticipated Discharge Date/Time: 01/13/24 11:28 Patient Disposition: Home, Self-Care Discharge Diagnosis: Acute on chronic hypoxic respiratory failure due to COPD exacerbation New onset atrial flutter Referrals: Nikita Rivera MD [Primary Care Provider] - 1 Week Discharge Medications: New Eliquis 5 mg Tablet 5 mg PO BID Qty: 60 0RF diltiazem HCl 240 mg Capsule,Extended Release 24hr 240 mg PO DAILY Qty: 90 0RF Protocol: Hold for SBP/HR < HOLD for SBP < : 90 HOLD for HR < : 60 prednisone 10 mg tablet 10 mg PO DIRECTED Qty: 30 0RF Rx Instructions: see taper instructions Continued Trelegy Ellipta 100-62.5-25 mcg blister with device 1 ea inhalation DAILY Qty: 180 2RF tamsulosin 0.4 mg capsule 0.4 mg PO BEDTIME albuterol sulfate 90 mcg/actuation HFA aerosol inhaler 2 puff INHALATION Q4H PRN (Reason: Shortness Of Breath Or Wheezing) multivitamin Tablet 1 tab PO DAILY cholecalciferol (vitamin D3) 25 mcg (1,000 unit) Tablet 25 mcg PO DAILY wullousm-jofvpasss-FR 3.5-10,000-1 mg/mL-unit/mL-% solution 2 drp otic (ears) QID PRN (Reason: Wax/ infection) ipratropium-albuterol 0.5 mg-3 mg(2.5 mg base)/3 mL solution for nebulization 1 ml inhalation QID PRN (Reason: dyspnea) triamcinolone acetonide 0.1 % cream 1 appl topical DAILY PRN (Reason: Rash) pregabalin 75 mg capsule 75 - 150 mg PO QAM Vyzulta 0.024 % drops 1 drp ophthalmic (eye) BEDTIME Rx Instructions: both eyes Vitamin B-6 50 mg Capsule 50 mg PO DAILY atorvastatin 10 mg tablet 10 mg PO DAILY bupropion HCl 150 mg tablet sustained-release 12 hr 150 mg PO DAILY fentanyl 100 mcg/hr patch 72 hour 1 patch topical Q3D@1800 Discontinued prednisone 20 mg tablet 10 mg PO DAILY theophylline 400 mg tablet extended release 24 hr 400 mg PO BID Qty: 60 6RF Discharge Orders: Discharge Order (Routine); Ordered 01/13/24 Ordered By: Charla Peguero Diet: Low fat, low cholesterol Activity on Discharge: As tolerated Stand Alone Forms: Patient Portal Discharge page Print Language: Syrian Care Plan Goals: Take Cardizem CD 240 mg 1 tablet daily and Eliquis 5 mg 1 tablet twice daily Discontinue use of theophylline Take prednisone tapering dose starting at 40 mg for 3 days then 30 mg for 3 days then 20 mg for 3 days then continue 10 mg home dose Health Concerns: Resume all home medication Plan of Treatment: Outpatient follow-up with primary care physician call for appointment Outpatient follow-up with final finisher forging dies Dr. Amador call for appointment in 1-2 weeks Follow-up with pulmonology as previously planned Assessment: As above Discharge Date/Time: 01/13/24 13:19
[2024-01-14 14:31] LABS: Theophylline 12.2
== END 2024-01-13 13:19 | disposition home or self-care (01) | DRG 193 ==
LOC: HO.ED 13:27 → HO.EDOVER 15:22 → HO.S3 01-08 11:43 → HO.IMC 01-09 13:57
PROVIDERS: Family Medicine; Physician Assistant Medical; Admitting Provider Student in an Organized Health Care Education/Training Program; Emergency Provider Emergency Medicine; PCP Family Medicine; Visit Provider Hospitalist
DX: J18.9 Pneumonia, unspecified organism (principal); J96.21 Acute and chronic respiratory failure with hypoxia; J44.0 Chronic obstructive pulmonary disease with (acute) lower respiratory infection; I48.92 Unspecified atrial flutter; I47.10 Supraventricular tachycardia, unspecified; J44.1 Chronic obstructive pulmonary disease with (acute) exacerbation; E78.5 Hyperlipidemia, unspecified; G89.29 Other chronic pain; F39 Unspecified mood [affective] disorder; M54.50 Low back pain, unspecified; D53.9 Nutritional anemia, unspecified; N40.0 Benign prostatic hyperplasia without lower urinary tract symptoms; Z20.822 Contact with and (suspected) exposure to COVID-19; Z99.81 Dependence on supplemental oxygen; Z87.891 Personal history of nicotine dependence; Z79.01 Long term (current) use of anticoagulants; Z79.51 Long term (current) use of inhaled steroids; Z79.899 Other long term (current) drug therapy
CPT/HCPCS: 0241U; 36415; 71045; 80048; 80053; 80198; 82803; 83605; 83735; 84145; 84443; 84484; 85025; 85027; 85610; 85730; 87040; 93005; 94640; 97162; 99285; J0153; J0456; J0692; J0696; J1650; J2919; J7120

== ENCOUNTER → 2024-01-07 11:38 | Outpatient (BNV) | payer MEDICARE, MEDICAID, SELFPAY | PROVIDERS: Admitting Provider Student in an Organized Health Care Education/Training Program; Emergency Provider Emergency Medicine; PCP Family Medicine; Visit Provider Internal Medicine Cardiovascular Disease | DX: R06.02 Shortness of breath (principal); I49.1 Atrial premature depolarization | CPT/HCPCS: 93010 ==

== ENCOUNTER 2024-01-07 15:07 | Outpatient (BNV) | payer MEDICARE, MEDICAID, SELFPAY | END 2024-01-08 13:38 | PROVIDERS: Admitting Provider Student in an Organized Health Care Education/Training Program; Emergency Provider Emergency Medicine; PCP Family Medicine; Visit Provider Internal Medicine Cardiovascular Disease | DX: R00.0 Tachycardia, unspecified (principal); I49.1 Atrial premature depolarization | CPT/HCPCS: 93010 ==

== ENCOUNTER 2024-01-07 15:07 | Outpatient (BNV) | payer MEDICARE, MEDICAID, SELFPAY | END 2024-01-09 13:28 | PROVIDERS: Admitting Provider Student in an Organized Health Care Education/Training Program; Emergency Provider Emergency Medicine; PCP Family Medicine; Visit Provider Internal Medicine Cardiovascular Disease | DX: R00.0 Tachycardia, unspecified (principal); I49.3 Ventricular premature depolarization; R07.9 Chest pain, unspecified | CPT/HCPCS: 93010 ==

== ENCOUNTER → 2024-01-07 15:07 | Outpatient (BNV) | payer MEDICARE, MEDICAID, SELFPAY | PROVIDERS: Admitting Provider Student in an Organized Health Care Education/Training Program; Emergency Provider Emergency Medicine; PCP Family Medicine; Visit Provider Internal Medicine Cardiovascular Disease | DX: I49.9 Cardiac arrhythmia, unspecified (principal); I48.92 Unspecified atrial flutter | CPT/HCPCS: 99222; 99233 ==

== ENCOUNTER → 2024-01-07 15:07 | Outpatient (BNV) | payer MEDICARE, MEDICAID, SELFPAY | PROVIDERS: Admitting Provider Student in an Organized Health Care Education/Training Program; Emergency Provider Emergency Medicine; PCP Family Medicine; Visit Provider Family Medicine | DX: I48.92 Unspecified atrial flutter (principal); I49.9 Cardiac arrhythmia, unspecified; J96.21 Acute and chronic respiratory failure with hypoxia; J44.1 Chronic obstructive pulmonary disease with (acute) exacerbation | CPT/HCPCS: 99223; 99232; 99233; 99239 ==

== ENCOUNTER 2024-02-03 06:12 | Outpatient (REF) | payer MEDICARE, MEDICAID, SELFPAY ==
[2024-02-03 10:31] LABS: MANUAL DIFF FLAG NO
[2024-02-03 10:48] LABS: Basophils Percent Auto 0.6 % (0-2); Eosinophils Absolute Auto 0.3 X10*3/uL (0.0-0.4); Eosinophils Percent Auto 6.5 % (0-4); Hematocrit 30.8 % (42.0-52.0); Hemoglobin 9.8 g/dl (14.0-18.0); Imm Gran Abs Auto 0.05 X10*3/uL (0.00-0.03); Immature Retic Fraction 31.8 % (2.3-13.4); Lymphocytes Absolute Auto 1.4 X10*3/uL (1.2-4.9); Lymphocytes Percent Auto 28.3 % (20-40); Mean Corpuscular HGB Conc 31.8 g/dl (31.0-36.0); Mean Corpuscular Hemoglobin 35.3 pg (27.0-33.0); Mean Platelet Volume 10.5 fL (9.4-12.4); Monocytes Absolute Auto 0.4 X10*3/uL (0.1-1.2); Monocytes Percent Auto 7.1 % (2-11); Neutrophils Absolute Auto 2.8 x10*3/uL (2.0-8.3); Neutrophils Percent Auto 56.5 % (45-73); Platelet Count 217 X10*3/uL (160-400); Red Blood Count 2.78 X10*6/uL (4.60-5.80); Red Cell Distribution Width 18.1 % (11.0-16.0); Retic HGB Equivalent 32.6 pg (30.0-35.0); Reticulocyte Percent 4.2 % (0.5-1.8); Reticulocytes Absolute 0.118 X10*6/uL (0.026-0.095); White Blood Count 4.9 X10*3/uL (4.8-10.8)
[2024-02-03 10:52] LABS: Mean Corpuscular Volume 110.8 fL (80.0-98.0)
[2024-02-03 10:58] LABS: Glucose Fasting 95 mg/dL (60-99)
[2024-02-03 10:59] LABS: Estimated Average Glucose 117 mg/dL; Hemoglobin A1c % 5.7 % (<6.0)
[2024-02-03 11:26] LABS: Free T4 (Free Thyroxine) 0.91 ng/dL (0.71-1.85); Thyroid Stimulating Hormone 2.31 uIU/mL (0.32-4.0)
[2024-02-03 11:41] LABS: Alanine Aminotransferase 26 U/L (0-40); Albumin Level 3.7 g/dL (3.5-5.0); Alkaline Phosphatase 59 U/L (39-117); Anion Gap 13 (12-20); Aspartate Amino Transferase 19 U/L (5-37); Bilirubin Total 0.3 mg/dL (0.0-1.0); Blood Urea Nitrogen 17 mg/dL (9-16); Calcium 9.1 mg/dL (8.4-10.2); Carbon Dioxide 31 mmol/L (22-29); Chloride 106 mmol/L (96-108); Estimated Glomerular Filt Rate > 60; Glucose Random 94 mg/dL (60-115); Potassium 4.7 mmol/L (3.3-5.1); Sodium 145 mmol/L (135-145); Total Protein 6.4 g/dL (6.5-8.0)
== END 2024-02-03 06:13 | disposition home or self-care (01) ==
LOC: HO.HMGCLDS 06:12
PROVIDERS: PCP Family Medicine; Referring Provider Internal Medicine Medical Oncology; Visit Provider Family Medicine
DX: R00.0 Tachycardia, unspecified (principal); R73.9 Hyperglycemia, unspecified; D64.9 Anemia, unspecified; E66.8 Other obesity
CPT/HCPCS: 36415; 80053; 82947; 83036; 84439; 84443; 85025; 85045

== ENCOUNTER 2024-02-28 09:31 | Inpatient (IN) | payer MEDICARE, MEDICAID, SELFPAY ==
[2024-02-28] VITALS (20 sets, daily range): BP systolic 83–162; BP diastolic 47–100; PULSE 71–148; RESP 18–24; TEMP 36.6–38.2; O2SAT 92–98; BMI 28.4
--- NOTE | ~2024-02-28 | XR_ITS ---
EXAMINATION: XR CHEST CLINICAL INFORMATION: Hypoxia COMPARISON: 02/28/2024 TECHNIQUE: Frontal view of the chest was obtained. FINDINGS: Patchy bibasilar airspace opacities previously noted have not changed significantly given differences in technique. Heart and pulmonary vessels are normal. No congestive change noted. There is degenerative change in the shoulders. XR/XR chest 1V IMPRESSION: Stable infiltrates. This could reflect pneumonia. Recommend short-term follow-up PA lateral.
--- NOTE | ~2024-02-28 | XR_ITS ---
EXAMINATION: XR CHEST CLINICAL INFORMATION: Reason for Exam sob COMPARISON: Chest radiograph 01/13/2024 TECHNIQUE: One view of the chest FINDINGS: Lines and tubes: EKG leads overlie the patient. Patchy bibasilar airspace opacities new from prior suspicious for infection or aspiration, recommend follow-up radiographs to ensure resolution. No pleural effusion. No pneumothorax. Unchanged cardiomediastinal silhouette. XR/XR chest 1V IMPRESSION: Patchy bibasilar airspace opacities new from prior suspicious for infection or aspiration, recommend follow-up radiographs to ensure resolution.
--- NOTE | 2024-02-28 09:34 | ECG_ITS ---
Test Reason : SOB Blood Pressure : / mmHG Vent. Rate : 148 BPM Atrial Rate : 000 BPM P-R Int : 000 ms QRS Dur : 094 ms QT Int : 334 ms P-R-T Axes : 000 -34 -38 degrees QTc Int : 524 ms Supraventricular tachycardia Left axis deviation Incomplete right bundle branch block ST & T wave abnormality, consider anterior ischemia Abnormal ECG When compared with ECG of 09-JAN-2024 14:47, T wave inversion now evident in Anterior leads Referred By: Christy Chapman Electronically Signed By:CALLI CHARLES
--- NOTE | 2024-02-28 10:02 | ED.SOB ---
HPI - SOB/Dyspnea General Chief Complaint: Dyspnea Stated Complaint: SOB Time Seen by Provider: 02/28/24 09:35 Source: patient and EMS Mode of arrival: EMS Limitations: no limitations History of Present Illness ED Provider: DR. 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 No sick contacts, no recent use of antibiotic, no recent travel. Patient lives home alone mostly independent. Stated for the last 4 days patient has no energy to do anything at home. Related Data Home Medications ?Medication ?Instructions ?Recorded ?Confirmed atorvastatin 10 mg tablet 10 mg PO DAILY 06/19/20 01/07/24 bupropion HCl 150 mg tablet,12 hr 150 mg PO DAILY 01/02/22 01/07/24 sustained-release fentanyl 100 mcg/hr transdermal 1 patch topical Q3D@1800 01/02/22 01/07/24 patch albuterol sulfate 90 mcg/actuation 2 puff inhalation Q4H PRN 10/17/23 01/07/24 aerosol inhaler Shortness Of Breath Or Wheezing cholecalciferol (vitamin D3) 25 25 mcg PO DAILY 10/17/23 01/07/24 mcg (1,000 unit) tablet multivitamin 1 tab PO DAILY 10/17/23 01/07/24 tamsulosin 0.4 mg capsule 0.4 mg PO BEDTIME 10/17/23 01/07/24 ipratropium 0.5 mg-albuterol 3 mg 1 ml inhalation QID PRN dyspnea 01/07/24 01/07/24 (2.5 mg base)/3 mL nebulization soln latanoprostene bunod 0.024 % eye 1 drp ophthalmic (eye) BEDTIME 01/07/24 01/07/24 drops (Vyzulta) mbdvnewe-lagysnehu-xrwlmujub 3.5 2 drp otic (ears) QID PRN Wax/ 01/07/24 01/07/24 mg/mL-10,000 unit/mL-1 % ear infection solution pregabalin 75 mg capsule 75 - 150 mg PO QAM 01/07/24 01/07/24 pyridoxine (vitamin B6) 50 mg 50 mg PO DAILY 01/07/24 01/07/24 capsule (Vitamin B-6) triamcinolone acetonide 0.1 % 1 appl topical DAILY PRN Rash 01/07/24 01/07/24 topical cream Previous Rx's ?Medication ?Instructions ?Recorded fluticasone fur. 100 mcg-umeclid 1 ea inhalation DAILY #180 ea 09/01/23 62.5 mcg-vilant 25 mcg inhalat.powder (Trelegy Ellipta) apixaban 5 mg tablet (Eliquis) 5 mg PO BID #60 tabs 01/13/24 diltiazem HCl 240 mg 240 mg PO DAILY #90 caps 01/13/24 capsule,extended release 24 hr prednisone 10 mg tablet 10 mg PO DIRECTED #30 tabs 01/13/24 prednisone 10 mg tablet See Taper PO DIRECTED #30 tabs 01/13/24 Allergies Allergy/AdvReac Type Severity Reaction Status Date / Time No Known Allergies Allergy Mild NONE Verified 02/28/24 09:47 Review of Systems Review of Systems: All other systems are reviewed and are negative Constitutional: Reports as per HPI and Reports no additional constitutional complaints Eyes: Reports as per HPI and Reports no additional eye complaints Reports system reviewed and no additional complaints, except as documented Cardiovascular: Reports as per HPI and Reports no additional cardiovascular complaints Respiratory: Reports as per HPI and Reports no additional respiratory complaints Gastrointestinal: Reports as per HPI and Reports no additional gastrointestinal complaints Genitourinary: Reports no additional female genitourinary complaints Musculoskeletal: Reports no additional musculoskeletal complaints Skin/Breast: Reports system reviewed and no additional complaints, except as docu Psychiatric: Reports no additional psychiatric complaints Endocrine: Reports no additional endocrine complaints Hematologic/Lymphatic: Reports no additional hematologic/lymphatic complaints Allergic/Immunologic: Reports no additional allergic/immunologic complaints Reports system reviewed and no additional complaints, except as documented and Reports Abnormal speech present [facility] Past Medical History Medical History HLD (hyperlipidemia) Osteoarthritis BPH (benign prostatic hyperplasia) Skin lesion of back Chronic obstructive pulmonary disease, unspecified Diverticulosis of large intestine without perforation or abscess without bleeding 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 Surgical History History of excision of lesion (~04/17/23) History of repair of rotator cuff History of colon resection (~2001) Family History Family History Mother Hypertension Father Hypertension Social History Social History Household Members: None Housing: House Do you presently have visiting nurse or other home services: Yes (Meals on wheels) Alcohol intake: never Comment: pt refusing alarms Patient Tobacco Use Status: Former Tobacco user Tobacco use type: Cigarette Smoked in Last 30 Days: No Use of substances other than those prescribed or required for medical reasons: No Advance Directives: No Advance Directives Information Provided: No service: No Current occupational status: employed and retired 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 Blood pressure low. Heart rate elevated. Respiratory rate elevated. Temperature normal. Oxygen saturation normal. Appearance: Alert. Oriented X3. No acute distress. Head: Normal external exam. Normocephalic. Atraumatic. No Horton signs noted. No raccoon eyes noted Eyes: PERRLA. EOMI. Conjunctiva and sclera normal. Eyelids normal. ENT: TM's Normal. Pharynx normal. Uvula midline. Moist mucous membranes. No trismus noted. No drooling noted. No muffled voice noted. Neck: Normal inspection. Neck supple. FROM. No adenopathy. Thyroid Normal. No meningeal signs. No neck mass noted. CVS: Rapid heart rate, Heart sound normal. No murmurs noted. Pulses normal throughout. Respiratory: No respiratory distress. Painless inspiration. Breath sounds normal. No wheezes/rales/rhonchi noted. Chest nontender. No accessory muscle usage noted or decreased air movement noted. Abdomen: Soft and nontender. Bowel sounds normal in all 4 quadrants. No distention noted. No organomegaly noted. No visible injury noted. Back: No CVA tenderness. Full range of motion noted. Skin: Skin warm and dry. Normal skin color. Normal skin turgor. No rashes/lesions/lacerations noted. Extremities: No lower extremity edema. Extremities exhibit normal range of motion. Extremities nontender. Neuro: Oriented X 3. Cranial nerve exam: II-XII are grossly intact No motor deficit. No sensory deficit. Reflexes normal. Course Reevaluation(s) Reevaluation #1: 78-year-old male came in for 4 days of not feeling good, decreased p.o. intake, hypotensive initially, appear dehydrated with apparent mild respiratory distress, EKG showed SVT patient was given 6 mg of adenosine heart rate now is 105 with improvement of hypotension. Will continue with the current plan. Time: 10:23 Reevaluation #2: Heart rate is 148 looked like SVT on the monitor patient was given 12 mg of adenosine now his heart rate is 112, patient relatively feels better takes fentanyl patches for controlling chronic pains that is due today, the patch was replaced in the ED, will give p.o. metoprolol to maintain heart rate at low. Time: 10:58 Reevaluation #3: Patient needed multiple attempts to break the SVT with adenosine followed by 25 mg of metoprolol that was successfully able to maintain heart rate in the 80s and therefore improvement of the blood pressure. Elevated troponin with no delta changes, no chest pain, no ischemic EKG changes, Patient received aspirin, metoprolol p.o.. Patient do not meet criteria for septic shock. Multilobar pneumonia received ceftriaxone and doxycycline. Admit to medical service. Time: 14:05 Medications Administered Discontinued Medications Generic Name Dose Route Start Last Admin Trade Name Kennyq PRN Reason Stop Dose Admin Acetaminophen 650 mg 02/28/24 10:17 02/28/24 10:22 Acetaminophen 325 Mg Tablet PO 02/28/24 10:18 650 mg ONCE ONE Administration Adenosine 6 mg 02/28/24 09:53 02/28/24 10:08 Adenosine 6 Mg/2 Ml Vial IVPUSH 02/28/24 09:54 6 mg STAT STA Administration Adenosine 12 mg 02/28/24 10:59 02/28/24 10:51 Adenosine 6 Mg/2 Ml Vial IVPUSH 02/28/24 11:00 12 mg ONCE ONE Administration Adenosine 12 mg 02/28/24 11:20 02/28/24 11:15 Adenosine 6 Mg/2 Ml Vial IVPUSH 02/28/24 11:21 12 mg ONCE ONE Administration Aspirin 324 mg 02/28/24 10:40 02/28/24 10:46 Aspirin 81 Mg Tab.Chew PO 02/28/24 10:41 324 mg ONCE ONE Administration Levalbuterol HCl 2.5 mg/ 0 mg 02/28/24 10:02 02/28/24 10:04 Ipratropium [place] 0.5 mg INHALE 02/28/24 10:03 1 dose ONCE ONE Administration Fentanyl 100 mcg 02/28/24 10:55 02/28/24 11:56 Fentanyl 100 Mcg Patch.Td72 TRANSDERMA 02/28/24 10:56 100 mcg ONCE ONE Administration Magnesium Sulfate 2 gm in 50 mls @ 25 mls/hr 02/28/24 09:52 02/28/24 11:08 Magnesium Sulfate/H2o IV 02/28/24 11:51 Infused ONCE ONE Infusion Ceftriaxone Sodium 1 gm/ 50 mls @ 100 mls/hr 02/28/24 09:52 02/28/24 10:39 Sodium Chloride IV 02/28/24 10:21 Infused ONCE ONE Infusion Sodium Chloride 1,000 mls @ 999 mls/hr 02/28/24 10:06 02/28/24 10:57 Ns IV 02/28/24 11:06 Infused .Q1H1M ONE Infusion Doxycycline Hyclate 100 mg/ 250 mls @ 166.67 mls/hr 02/28/24 10:27 02/28/24 12:24 Sodium Chloride IV 02/28/24 11:56 Infused ONCE ONE Infusion Methylprednisolone Sodium Succinate 125 mg 02/28/24 09:52 02/28/24 10:04 Methylprednisolone Sod Succ 125 Mg/2 Ml Vial IVPUSH 02/28/24 09:53 125 mg ONCE ONE Administration Metoprolol Tartrate 25 mg 02/28/24 10:59 02/28/24 11:07 Metoprolol Tartrate 25 Mg Tablet PO 02/28/24 11:00 25 mg ONCE ONE Administration Protocol Oxycodone HCl 5 mg 02/28/24 11:20 02/28/24 11:38 Oxycodone Hcl Immed Release 5 Mg Tablet PO 02/28/24 11:21 5 mg ONCE ONE Administration Medical Decision Making Differential Diagnosis Differential Diagnoses: The differential diagnosis associated with the presentation includes (COPD exacerbation, CHF, arrhythmia, pneumonia, pneumothorax, pleural effusion, electrolyte derangement, severe anemia.) Admission/Observation Consideration of admission/observation: Escalation of care including admission/observation considered Consult Healthcare Provider Management of the patient was discussed with: Hospitalist (Dr. Porter.) Lab Data 02/28/24 10:01 02/28/24 10:01 Labs: Lab Results 02/28/24 02/28/24 02/28/24 Range/Units 10:01 10:03 10:24 WBC 10.5 (4.8-10.8) X10*3/uL RBC 3.17 L (4.60-5.80) X10*6/uL Hgb 11.2 L (14.0-18.0) g/dl Hct 33.3 L (42.0-52.0) % MCV 105.0 H (80.0-98.0) fL MCH 35.3 H (27.0-33.0) pg MCHC 33.6 (31.0-36.0) g/dl RDW 17.7 H (11.0-16.0) % Plt Count 236 (160-400) X10*3/uL MPV 10.2 (9.4-12.4) fL Immature Gran % (Auto) 0.6 H (0.0-0.4) % Neut % (Auto) 84.5 H (45-73) % Lymph % (Auto) 7.1 L (20-40) % [place] % (Auto) 5.0 (2-11) % Eos % (Auto) 2.3 (0-4) % Baso % (Auto) 0.5 (0-2) % Lymph # (Auto) 0.8 L (1.2-4.9) X10*3/uL [place] # (Auto) 0.5 (0.1-1.2) X10*3/uL Eos # (Auto) 0.2 (0.0-0.4) X10*3/uL Baso # (Auto) 0.1 (0.0-0.2) X10*3/uL Abs Immat Gran (auto) 0.06 H (0.00-0.03) X10*3/uL Absolute Neuts (auto) 8.9 H (2.0-8.3) x10*3/uL Absolute Nucleated RBC 0.020 H (0.0-0.012) X10*3/uL Nucleated RBC % (auto) 0.2 (0.0-0.2) /100WBC PT 14.5 H (11.1-13.3) SEC INR 1.2 H (0.9-1.1) Sodium 140 (135-145) mmol/L Potassium 3.8 (3.3-5.1) mmol/L Chloride 101 (96-108) mmol/L Carbon Dioxide 29 (22-29) mmol/L Anion Gap 14 (12-20) BUN 10 (9-16) mg/dL Creatinine 0.89 (0.5-1.4) mg/dL Estim Creat Clear Calc 84.4 Estimated GFR > 60 Random Glucose 135 H (60-115) mg/dL Lactic Acid 1.6 (0.5-2.0) mmol/L Calcium 8.9 (8.4-10.2) mg/dL Magnesium 2.1 (1.6-2.6) mg/dL Total Bilirubin 0.9 (0.0-1.0) mg/dL AST 35 (5-37) U/L ALT 32 (0-40) U/L Alkaline Phosphatase 68 (39-117) U/L Troponin I High Sens 355.6 H* D (<3.5-35.0) ng/L B-Natriuretic Peptide 602 H (<100) pg/mL Total Protein 6.4 L (6.5-8.0) g/dL Albumin 3.6 (3.5-5.0) g/dL Urine Color Yellow Urine Appearance Clear Urine pH 8.0 (5.0-9.0) Ur Specific [place] 1.010 (1.005-1.025) Urine Protein 30 (1+) H (Neg-Trace) mg/dL Urine Glucose (UA) Negative (Negative) mg/dL Urine Ketones 15 (Negative) mg/dL Urine Blood Negative (Negative) Urine Nitrite Negative (Negative) Ur Leukocyte Esterase Negative (Negative) Urine RBC 0-2 (0-2) /HPF Urine WBC 0-5 (0-5) /HPF Ur Squamous Epith Cells 0-2 (0-2) /HPF Urine Bacteria None Seen (None Seen) Hyaline Casts 0-2 (0-2) /LPF Influenza Type A (PCR) NEGATIVE (Negative) Influenza Type B (PCR) NEGATIVE (Negative) RSV RNA Qual (PCR) NEGATIVE (Negative) SARS-CoV-2 RNA (RT-PCR) NEGATIVE (Negative) 02/28/24 Range/Units 13:05 WBC (4.8-10.8) X10*3/uL RBC (4.60-5.80) X10*6/uL Hgb (14.0-18.0) g/dl Hct (42.0-52.0) % MCV (80.0-98.0) fL MCH (27.0-33.0) pg MCHC (31.0-36.0) g/dl RDW (11.0-16.0) % Plt Count (160-400) X10*3/uL MPV (9.4-12.4) fL Immature Gran % (Auto) (0.0-0.4) % Neut % (Auto) (45-73) % Lymph % (Auto) (20-40) % [place] % (Auto) (2-11) % Eos % (Auto) (0-4) % Baso % (Auto) (0-2) % Lymph # (Auto) (1.2-4.9) X10*3/uL [place] # (Auto) (0.1-1.2) X10*3/uL Eos # (Auto) (0.0-0.4) X10*3/uL Baso # (Auto) (0.0-0.2) X10*3/uL Abs Immat Gran (auto) (0.00-0.03) X10*3/uL Absolute Neuts (auto) (2.0-8.3) x10*3/uL Absolute Nucleated RBC (0.0-0.012) X10*3/uL Nucleated RBC % (auto) (0.0-0.2) /100WBC PT (11.1-13.3) SEC INR (0.9-1.1) Sodium (135-145) mmol/L Potassium (3.3-5.1) mmol/L Chloride (96-108) mmol/L Carbon Dioxide (22-29) mmol/L Anion Gap (12-20) BUN (9-16) mg/dL Creatinine (0.5-1.4) mg/dL Estim Creat Clear Calc Estimated GFR Random Glucose (60-115) mg/dL Lactic Acid (0.5-2.0) mmol/L Calcium (8.4-10.2) mg/dL Magnesium (1.6-2.6) mg/dL Total Bilirubin (0.0-1.0) mg/dL AST (5-37) U/L ALT (0-40) U/L Alkaline Phosphatase (39-117) U/L Troponin I High Sens 307.3 H* (<3.5-35.0) ng/L B-Natriuretic Peptide (<100) pg/mL Total Protein (6.5-8.0) g/dL Albumin (3.5-5.0) g/dL Urine Color Urine Appearance Urine pH (5.0-9.0) Ur Specific [place] (1.005-1.025) Urine Protein (Neg-Trace) mg/dL Urine Glucose (UA) (Negative) mg/dL Urine Ketones (Negative) mg/dL Urine Blood (Negative) Urine Nitrite (Negative) Ur Leukocyte Esterase (Negative) Urine RBC (0-2) /HPF Urine WBC (0-5) /HPF Ur Squamous Epith Cells (0-2) /HPF Urine Bacteria (None Seen) Hyaline Casts (0-2) /LPF Influenza Type A (PCR) (Negative) Influenza Type B (PCR) (Negative) RSV RNA Qual (PCR) (Negative) SARS-CoV-2 RNA (RT-PCR) (Negative) Critical Care Time Critical Care Time Critical Care Time: Yes Total Critical Care Time: 60 Attestation: The patient was critically ill with a high probability of imminent or life-threatening deterioration. I spent greater than 30 minutes of discontinuous time evaluating the patient, delivering critical care at the bedside, discussing evaluating data with consultants. Critical care time does not include time spent performing separately billable procedures or teaching. Time spent performing critical care was 60 minutes. Discharge Plan Discharge Clinical Impression: SVT (supraventricular tachycardia), COPD exacerbation, Pneumonia, Elevated troponin Patient Disposition: Admitted As Inpatient Prescriptions: No Action Trelegy Ellipta 100-62.5-25 mcg blister with device 1 ea inhalation DAILY Qty: 180 2RF tamsulosin 0.4 mg capsule 0.4 mg PO BEDTIME albuterol sulfate 90 mcg/actuation HFA aerosol inhaler 2 puff INHALATION Q4H PRN (Reason: Shortness Of Breath Or Wheezing) multivitamin Tablet 1 tab PO DAILY cholecalciferol (vitamin D3) 25 mcg (1,000 unit) Tablet 25 mcg PO DAILY emxhisop-eaggrwoxy-UT 3.5-10,000-1 mg/mL-unit/mL-% solution 2 drp otic (ears) QID PRN (Reason: Wax/ infection) ipratropium-albuterol 0.5 mg-3 mg(2.5 mg base)/3 mL solution for nebulization 1 ml inhalation QID PRN (Reason: dyspnea) triamcinolone acetonide 0.1 % cream 1 appl topical DAILY PRN (Reason: Rash) pregabalin 75 mg capsule 75 - 150 mg PO QAM Vyzulta 0.024 % drops 1 drp ophthalmic (eye) BEDTIME Rx Instructions: both eyes Vitamin B-6 50 mg Capsule 50 mg PO DAILY Eliquis 5 mg Tablet 5 mg PO BID Qty: 60 0RF diltiazem HCl 240 mg Capsule,Extended Release 24hr 240 mg PO DAILY Qty: 90 0RF Protocol: Hold for SBP/HR < HOLD for SBP < : 90 HOLD for HR < : 60 prednisone 10 mg tablet 10 mg PO DIRECTED Qty: 30 0RF Rx Instructions: see taper instructions prednisone 10 mg tablet See Taper PO DIRECTED Qty: 30 0RF Taper: Prednisone 40 mg daily for 3 Days and 0 Hour 30 mg daily for 3 Days and 0 Hour 20 mg daily for 3 Days and 0 Hour 10 mg daily for 3 Days and 0 Hour Rx Instructions: see taper instructions atorvastatin 10 mg tablet 10 mg PO DAILY bupropion HCl 150 mg tablet sustained-release 12 hr 150 mg PO DAILY fentanyl 100 mcg/hr patch 72 hour 1 patch topical Q3D@1800 Print Language: Setswana
[2024-02-28] MEDS: levalbuterol HCL 2.5 MG, Ipratropium Bromide 0.5 MG INHALE (10:04)
[2024-02-28] MEDS: methylPREDNISolone Sod Succ 125 MG/2 ML VIAL IVPUSH (10:04)
[2024-02-28] MEDS: Magnesium Sulfate/H2O 2 GM/50 ML PIGGYBACK IV (10:04)
[2024-02-28] MEDS: 0.9 % Sodium Chloride 1,000 ML 999 ML IV (10:07)
[2024-02-28 10:08] LABS: MANUAL DIFF FLAG NO
[2024-02-28] MEDS: Adenosine 6 MG/2 ML VIAL IVPUSH (10:08)
[2024-02-28 10:10] LABS: Basophils Absolute Auto 0.1 X10*3/uL (0.0-0.2); Basophils Percent Auto 0.5 % (0-2); Eosinophils Absolute Auto 0.2 X10*3/uL (0.0-0.4); Eosinophils Percent Auto 2.3 % (0-4); Hematocrit 33.3 % (42.0-52.0); Hemoglobin 11.2 g/dl (14.0-18.0); Imm Gran Abs Auto 0.06 X10*3/uL (0.00-0.03); Imm Gran Pct Auto 0.6 % (0.0-0.4); Lymphocytes Absolute Auto 0.8 X10*3/uL (1.2-4.9); Lymphocytes Percent Auto 7.1 % (20-40); Mean Corpuscular HGB Conc 33.6 g/dl (31.0-36.0); Mean Corpuscular Hemoglobin 35.3 pg (27.0-33.0); Mean Platelet Volume 10.2 fL (9.4-12.4); Monocytes Absolute Auto 0.5 X10*3/uL (0.1-1.2); NRBC Pct Auto 0.2 /100WBC (0.0-0.2); Neutrophils Absolute Auto 8.9 x10*3/uL (2.0-8.3); Neutrophils Percent Auto 84.5 % (45-73); Platelet Count 236 X10*3/uL (160-400); Red Blood Count 3.17 X10*6/uL (4.60-5.80); Red Cell Distribution Width 17.7 % (11.0-16.0); White Blood Count 10.5 X10*3/uL (4.8-10.8)
[2024-02-28] MEDS: cefTRIAXone sodium 1 GM in 0.9 % Sodium Chloride 50 ML IV (10:11)
[2024-02-28 10:17] LABS: INTERNATIONAL NORM RATIO 1.2 (0.9-1.1); Prothrombin Time 14.5 SEC (11.1-13.3)
--- NOTE | 2024-02-28 10:17 | ECG_ITS ---
Test Reason : TACHYCARDIA REPEAT Blood Pressure : / mmHG Vent. Rate : 108 BPM Atrial Rate : 108 BPM P-R Int : 188 ms QRS Dur : 082 ms QT Int : 406 ms P-R-T Axes : 063 -46 -30 degrees QTc Int : 544 ms Sinus tachycardia with Premature atrial complexes Left axis deviation Inferior infarct , age undetermined Anteroseptal infarct , age undetermined Prolonged QT Abnormal ECG When compared with ECG of 28-FEB-2024 09:47, Premature atrial complexes are now Present Incomplete right bundle branch block is no longer Present Anteroseptal infarct is now Present Inferior infarct is now Present Referred By: Vi Rodriguez Electronically Signed By:Wood Steel
[2024-02-28 10:18] LABS: Lactic Acid 1.6 mmol/L (0.5-2.0)
[2024-02-28] MEDS: Acetaminophen 325 MG TABLET 650 MG PO ×2 (10:22→20:09)
[2024-02-28 10:23] LABS: Alanine Aminotransferase 32 U/L (0-40); Albumin Level 3.6 g/dL (3.5-5.0); Alkaline Phosphatase 68 U/L (39-117); Anion Gap 14 (12-20); Aspartate Amino Transferase 35 U/L (5-37); Bilirubin Total 0.9 mg/dL (0.0-1.0); Blood Urea Nitrogen 10 mg/dL (9-16); Calcium 8.9 mg/dL (8.4-10.2); Carbon Dioxide 29 mmol/L (22-29); Chloride 101 mmol/L (96-108); Creatinine Clr Calc Pharmacy 84.4; Estimated Glomerular Filt Rate > 60; Glucose Random 135 mg/dL (60-115); Magnesium 2.1 mg/dL (1.6-2.6); Potassium 3.8 mmol/L (3.3-5.1); Sodium 140 mmol/L (135-145); Total Protein 6.4 g/dL (6.5-8.0)
[2024-02-28 10:29] LABS: B Type Natriuretic Peptide 602 pg/mL (<100)
[2024-02-28 10:32] LABS: Appearance Urine Clear; Color Urine Yellow; Glucose Urine UA Negative (Negative); Leukocyte Esterase Urine Negative (Negative); Nitrite Urine Negative (Negative); UMIC TRIGGER UACC YES; Urine Blood Negative (Negative); Urine Ketones 15 mg/dL (Negative); Urine Protein 30 (1+) mg/dL (Neg-Trace)
[2024-02-28 10:35] LABS: Troponin-I High Sensitivity 355.6 ng/L (<3.5-35.0)
[2024-02-28] MEDS: Doxycycline Hyclate 100 MG in 0.9 % Sodium Chloride 250 ML 166.67 MG IV ×2 (10:40→22:17)
[2024-02-28 10:46] LABS: Influenza A PCR NEGATIVE (Negative); Influenza B PCR NEGATIVE (Negative); Resp Syncy Virus RNA Qual PCR NEGATIVE (Negative); SARS COV2 PCR INHOUSE NEGATIVE (Negative)
[2024-02-28] MEDS: Aspirin 81 MG TAB.CHEW 324 MG PO (10:46)
[2024-02-28] MEDS: Adenosine 6 MG/2 ML VIAL 12 MG IVPUSH ×2 (10:51→11:15)
[2024-02-28] MEDS: Metoprolol Tartrate 25 MG TABLET PO ×2 (11:07→20:03)
[2024-02-28] MEDS: oxyCODONE HCl Immed Release 5 MG TABLET PO (11:38)
[2024-02-28 11:40] LABS: Bacteria Urine None Seen (None Seen); Hyaline Casts Urine 0-2 /LPF (0-2); RBC Urine 0-2 /HPF (0-2); Squamous Epithelial Cell Urine 0-2 /HPF (0-2); WBC Urine 0-5 /HPF (0-5)
--- NOTE | 2024-02-28 11:49 | PC.NURSE ---
Late entry: Pt presented to ED via EMS, reports SOB X3 days worsening along with a heaviness in his chest. Pt has hx of COPD and emphysema, uses O2 PRN at home. Reports he used his albuterol and O2 with no relief. EMS gave duoneb en route and placed 20G in left forearm. On arrival to ED, pt tachy in 140s, labored breathing, coughing and hypotensive. RA SPO2 in 80s, improves to 90s on 3L NC. SEPSIS ALERT called at bedside.
--- NOTE | 2024-02-28 11:51 | PC.NURSE ---
Late entry: Pt had intermittent episodes of tachycardia in 140s, each time treated with adenosine per MAR, resolved. At this time, pt is 80-90s HR on monitor.
--- NOTE | 2024-02-28 11:53 | PC.NURSE ---
Pt alert and oriented, breathing more calm and even but does have periods of increased WOB. VSS. Fever has resolved since Tylenol. Pt reports chronic back pain, requested oxy and fentanyl patch (medicated per OCT)
[2024-02-28] MEDS: fentaNYL 100 MCG PATCH.TD72 TRANSDERMA (11:56)
--- NOTE | 2024-02-28 12:29 | PC.NURSE ---
Pt breathing more much calm and unlabored. Pt reports feeling overall better. Pain medicine is helping per pt. VSS
[2024-02-28 13:34] LABS: Troponin-I High Sensitivity 307.3 ng/L (<3.5-35.0)
--- NOTE | 2024-02-28 14:47 | PM.IMHP ---
History of Present Illness Date of Service: 02/28/24 Attending physician on admission: Alan Porter Chief Complaint: sob, cough, malaise 78-year-old male with a PMH significant for?COPD on 2-3L home O2 prn, HLD, BPH, chronic lower back pain, and arthritis who presents to the ED for evaluation of SOB, difficulty breathing, productive cough, and generalized weakness x3-4 days. He reports dyspnea is primarily with exertion but also occurs at rest. He is felt sweats and chills but has not taken his temperature. Denies any known sick contacts or recent travel. No sore throat, nasal congestion, abdominal pain, nausea, vomiting, diarrhea, lightheadedness, palpitations, or chest pains. He denies any recent increase in albuterol usage. On arrival, patient febrile to 100.7 and tachycardic to 148. Noted to be in SVT and received adenosine x3 now in sinus tachycardia with rate in the low 100s and was initially hypotensive to 83/55 improved to 134/72 following conversion to sinus tachycardia and with IV fluids. He was also tachypneic and is hypoxic to the high 70s with minimal exertion. There is no leukocytosis or significant anemia. Has a chronic macrocytic anemia with H/H 11.2/33 0.3%. Renal function and electrolyte levels are normal. Lactic acid 1.6. Initial troponin 355, repeat 307. BNP 600. Urinalysis unremarkable. Negative for COVID-19, RSV, influenza. Chest x-ray shows patchy bibasilar airspace opacities new from prior suspicious for infection or aspiration. Initial EKG shows SVT, rate 148 with T-wave inversions noted in anterior leads. Subsequent EKG confirmed conversion to sinus tachycardia with PACs, rate 108 with T-wave inversions noted in anterior leads. In the ED, has received adenosine x3 as previously noted, ASA 324 mg, IV magnesium, p.o. metoprolol, ceftriaxone, doxycycline, albuterol, methylprednisolone. Review of Systems Review of Systems: Yes all other systems are reviewed and are negative [facility] Medical History HLD (hyperlipidemia) Osteoarthritis BPH (benign prostatic hyperplasia) Skin lesion of back Chronic obstructive pulmonary disease, unspecified Diverticulosis of large intestine without perforation or abscess without bleeding 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 Family History Mother Hypertension Father Hypertension Surgical History History of excision of lesion (~04/17/23) History of repair of rotator cuff History of colon resection (~2001) Social History Household Members: None Housing: House Do you presently have visiting nurse or other home services: Yes (Meals on wheels) Alcohol intake: never Comment: pt refusing alarms Patient Tobacco Use Status: Former Tobacco user Tobacco use type: Cigarette Smoked in Last 30 Days: No Use of substances other than those prescribed or required for medical reasons: No Advance Directives: No Advance Directives Information Provided: No service: No Current occupational status: employed and retired 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 /[employer] Meds Allergies Allergy/AdvReac Type Severity Reaction Status Date / Time No Known Allergies Allergy Mild NONE Verified 02/28/24 09:47 Active Medications: Current Medications Acetaminophen (Acetaminophen 325 Mg Tablet) 650 mg PO Q6H PRN PRN Reason: Pain, Mild (Pain Scale 1-3), fever or headache Albuterol/Ipratropium (Albuterol/Iprat 2.5/0.5mg 3 Ml Ampul.Neb) 3 ml INHALE RQ4H WHILE AWAKE [facility]NA[facility] Calcium Carbonate (Calcium Carbonate 750 Mg Tab.Chew) 750 mg PO Q4H PRN PRN Reason: Heartburn Ceftriaxone Sodium 1 gm/ (Sodium Chloride) 50 mls @ 100 mls/hr IV Q24H [facility] Doxycycline Hyclate 100 mg/ (Sodium Chloride) 250 mls @ 166.67 mls/hr IV Q12H [facility] Magnesium Hydroxide (Milk Of Magnesia 30 Ml Oral.Susp) 30 ml PO DAILY PRN PRN Reason: Constipation Methylprednisolone Sodium Succinate (Methylprednisolone Sod Succ 40 Mg/Ml Vial) 40 mg IVPUSH Q12H [facility] Home Medications ?Medication ?Instructions ?Recorded ?Confirmed ?Last Taken ?Type atorvastatin 10 mg tablet 10 mg PO DAILY 06/19/20 01/07/24 10/16/23 History fentanyl 100 mcg/hr transdermal 1 patch topical Q3D@1800 01/02/22 01/07/2410/16/24 History patch albuterol sulfate 90 mcg/actuation 2 puff inhalation Q4H PRN 10/17/23 01/07/24 10/16/23 History aerosol inhaler Shortness Of Breath Or Wheezing cholecalciferol (vitamin D3) 25 25 mcg PO DAILY 10/17/23 01/07/24 10/16/23 History mcg (1,000 unit) tablet multivitamin 1 tab PO DAILY 10/17/23 01/07/24 10/16/23 History tamsulosin 0.4 mg capsule 0.4 mg PO BEDTIME 10/17/23 01/07/24 10/16/23 History ipratropium 0.5 mg-albuterol 3 mg 1 ml inhalation QID PRN dyspnea 01/07/24 01/07/24 Unknown History (2.5 mg base)/3 mL nebulization soln latanoprostene bunod 0.024 % eye 1 drp ophthalmic (eye) BEDTIME 01/07/24 01/07/24 Unknown History drops (Vyzulta) [id number] 3.5 2 drp otic (ears) QID PRN Wax/ 01/07/24 01/07/24 Unknown History mg/mL-10,000 unit/mL-1 % ear infection solution pregabalin 75 mg capsule 75 - 150 mg PO QAM 01/07/24 01/07/24 Unknown History pyridoxine (vitamin B6) 50 mg 50 mg PO DAILY 01/07/24 01/07/24 Unknown History capsule (Vitamin B-6) triamcinolone acetonide 0.1 % 1 appl topical DAILY PRN Rash 01/07/24 01/07/24 Unknown History topical cream prednisone 10 mg tablet 10 mg PO DAILY 02/28/24 02/28/24 Unknown History Physical Exam Vital Signs and Narrative: Vital Signs: Last Vital Signs Temp 98.1 F 02/28/24 14:39 Pulse 78 02/28/24 14:39 Resp 19 02/28/24 14:39 BP 134/72 02/28/24 14:39 Pulse Ox 92 02/28/24 14:39 O2 Del Method Nasal Cannula 02/28/24 14:39 O2 Flow Rate 2 02/28/24 14:39 Oxygen Flow Rate 3 02/28/24 09:45 BMI result Body Mass Index 28.4 Constitutional - Awake and Alert, No apparent distress Eyes - PERRLA, EOMI Cardiovascular - S1S2, RRR, No edema Respiratory - Normal lung expansion, Normal respiratory effort, No respiratory distress, diminished lung sounds bilaterally Gastrointestinal - NT / ND; +BS; No rebound or guarding Extremities - no calf tenderness bilaterally, no swelling Skin - Warm/Dry Neurological - Alert & oriented x3 Psychological - Appropriate affect Results Labs 02/28/24 10:01 02/28/24 10:01 Labs: Laboratory Results - last 24 hr 02/28/24 02/28/24 02/28/24 10:01 10:03 10:24 MCV 105.0 H MCH 35.3 H MCHC 33.6 RDW 17.7 H Plt Count 236 MPV 10.2 Immature Gran % (Auto) 0.6 H Neut % (Auto) 84.5 H Lymph % (Auto) 7.1 L [place] % (Auto) 5.0 Eos % (Auto) 2.3 Baso % (Auto) 0.5 Lymph # (Auto) 0.8 L [place] # (Auto) 0.5 Eos # (Auto) 0.2 Baso # (Auto) 0.1 Abs Immat Gran (auto) 0.06 H Absolute Neuts (auto) 8.9 H Absolute Nucleated RBC 0.020 H Nucleated RBC % (auto) 0.2 PT 14.5 H INR 1.2 H Anion Gap 14 Estim Creat Clear Calc 84.4 Estimated GFR > 60 Random Glucose 135 H Lactic Acid 1.6 Calcium 8.9 Magnesium 2.1 Total Bilirubin 0.9 AST 35 ALT 32 Alkaline Phosphatase 68 Troponin I High Sens 355.6 H* D B-Natriuretic Peptide 602 H Total Protein 6.4 L Albumin 3.6 Urine Color Yellow Urine Appearance Clear Urine pH 8.0 Ur Specific [place] 1.010 Urine Protein 30 (1+) H Urine Glucose (UA) Negative Urine Ketones 15 Urine Blood Negative Urine Nitrite Negative Ur Leukocyte Esterase Negative Urine RBC 0-2 Urine WBC 0-5 Ur Squamous Epith Cells 0-2 Urine Bacteria None Seen Hyaline Casts 0-2 Influenza Type A (PCR) NEGATIVE Influenza Type B (PCR) NEGATIVE RSV RNA Qual (PCR) NEGATIVE SARS-CoV-2 RNA (RT-PCR) NEGATIVE 02/28/24 13:05 MCV MCH MCHC RDW Plt Count MPV Immature Gran % (Auto) Neut % (Auto) Lymph % (Auto) [place] % (Auto) Eos % (Auto) Baso % (Auto) Lymph # (Auto) [place] # (Auto) Eos # (Auto) Baso # (Auto) Abs Immat Gran (auto) Absolute Neuts (auto) Absolute Nucleated RBC Nucleated RBC % (auto) PT INR Anion Gap Estim Creat Clear Calc Estimated GFR Random Glucose Lactic Acid Calcium Magnesium Total Bilirubin AST ALT Alkaline Phosphatase Troponin I High Sens 307.3 H* B-Natriuretic Peptide Total Protein Albumin Urine Color Urine Appearance Urine pH Ur Specific [place] Urine Protein Urine Glucose (UA) Urine Ketones Urine Blood Urine Nitrite Ur Leukocyte Esterase Urine RBC Urine WBC Ur Squamous Epith Cells Urine Bacteria Hyaline Casts Influenza Type A (PCR) Influenza Type B (PCR) RSV RNA Qual (PCR) SARS-CoV-2 RNA (RT-PCR) Imaging Radiologist's Impressions: Impressions Chest X-Ray 02/28/24 10:09 IMPRESSION: Patchy bibasilar airspace opacities new from prior suspicious for infection or aspiration, recommend follow-up radiographs to ensure resolution. Assessment and Plan (1) Elevated troponin: Status: Acute (2) Pneumonia: Status: Acute (3) COPD exacerbation: Status: Acute (4) SVT (supraventricular tachycardia): Status: Acute Plan 78-year-old male with a PMH significant for?COPD on 2-3L home O2 prn, HLD, BPH, chronic lower back pain, and arthritis admitted for further management of acute pneumonia with COPD exacerbation and exercise hypxomia #Acute pneumonia with copd exacerbation and exercise hypoxemia and sepsis -no leukocytosis but febrile, tachycardic, tachypneic. No lactic acidosis. Nosevere sepsis. Hypotension r/t unstable SVT not sepsis -CXR with patchy bibasilar opacities -IV ctx and doxy (initiated 02/27) -IV methylprednisolone 40 mg b.i.d. -DuoNebs q.4h while awake -symptomatic management -check sputum culture, strep pneumo antigen, Legionella antigen -RPP -follow CBC, cultures -continue supplemental O2 p.r.n. per protocol # SVT with hypotension -likely in setting of infection. Converted to sinus tach following adenosine x3 -echocardiogram ordered -metoprolol 25 mg b.i.d. Continue cardizem -cardiology consult -monitor on telemetry # elevated troponins- no chest pain -initial tropes 307, repeat 300 -EKG with t wave inversions anterior leads -likely in setting of SVT -cardiology consult, monitor on tele #Elevated BNP -no evidence of volume overload -echo pending #BPH -continue flomax #Chronic pain d/o -continue fenatanyl patch #HLD -statin #Paroxysmal aflutter- rate controlled on admission -continue eliquis, cardizem. Metoprolol ordered as above dvt prophylaxis- eliquis full code pt requires inpt stay at least 2 midnights for management of acute pneumonia with copd exacerbation and significant exercise hypoxemic with oximetry high 70s with minimal exertion requiring iv abx, iv steroids, and close cardiac monitoring due to svt requiring multiple doses of adenosine to monitor for and prevent decompensation Quality Stroke Does the patient have a stroke diagnosis?: No VTE Prior VTE?: No VTE Risk Level:: Medical - moderate - high VTE Device Contraindication: Treatment Not Indicated VTE Drug Contraindication: N/A - Med Ordered
--- NOTE | 2024-02-28 15:54 | PHA.MEDREC ---
Pharmacy Consult ? Medication Reconciliation Pharmacy has completed the medication reconciliation. spoke with patient to confirm medications, He is no longer taking bupropion, metoprolol, theophylline, or tramadol. Confirmed he uses pregabalin 2 capsules qam. He is still taking prednisone 10mg daily, fentanyl patch every 3 days. He is not sure when he last took his medications.
[2024-02-28] MEDS: Albuterol/Iprat 2.5/0.5MG 3 ML AMPUL.NEB INHALE (18:45)
--- NOTE | 2024-02-28 18:46 | PC.NURSE ---
Pt sleeping, breathing even and unlabored. VSS
[2024-02-28] MEDS: methylPREDNISolone Sod Succ 40 MG/ML VIAL IVPUSH (20:04)
[2024-02-29] VITALS (9 sets, daily range): BP systolic 137–162; BP diastolic 63–78; PULSE 61–88; RESP 12–20; TEMP 36.6–37.2; O2SAT 92–97; BMI 28.7
--- NOTE | 2024-02-29 01:06 | PC.NURSE ---
Doxycycline complete upon this RN's entrance into pts room, unable to determine finish time Plan of care ongoing.
[2024-02-29 05:02] LABS: MANUAL DIFF FLAG NO
[2024-02-29 05:04] LABS: Hematocrit 26.6 % (42.0-52.0); Hemoglobin 8.8 g/dl (14.0-18.0); Imm Gran Abs Auto 0.02 X10*3/uL (0.00-0.03); Imm Gran Pct Auto 0.7 % (0.0-0.4); Lymphocytes Absolute Auto 0.3 X10*3/uL (1.2-4.9); Lymphocytes Percent Auto 9.7 % (20-40); Mean Corpuscular HGB Conc 33.1 g/dl (31.0-36.0); Mean Corpuscular Hemoglobin 34.6 pg (27.0-33.0); Mean Corpuscular Volume 104.7 fL (80.0-98.0); Mean Platelet Volume 10.2 fL (9.4-12.4); Monocytes Absolute Auto 0.1 X10*3/uL (0.1-1.2); Monocytes Percent Auto 4.3 % (2-11); NRBC Pct Auto 0.7 /100WBC (0.0-0.2); Neutrophils Absolute Auto 2.4 x10*3/uL (2.0-8.3); Neutrophils Percent Auto 85.3 % (45-73); Platelet Count 178 X10*3/uL (160-400); Red Blood Count 2.54 X10*6/uL (4.60-5.80); Red Cell Distribution Width 17.4 % (11.0-16.0); White Blood Count 2.8 X10*3/uL (4.8-10.8)
[2024-02-29 05:21] LABS: Anion Gap 14 (12-20); Blood Urea Nitrogen 10 mg/dL (9-16); Carbon Dioxide 26 mmol/L (22-29); Chloride 107 mmol/L (96-108); Creatinine Clr Calc Pharmacy 96.3; Estimated Glomerular Filt Rate > 60; Glucose Random 175 mg/dL (60-115); Potassium 3.9 mmol/L (3.3-5.1); Sodium 143 mmol/L (135-145)
[2024-02-29] MEDS: Albuterol/Iprat 2.5/0.5MG 3 ML AMPUL.NEB INHALE ×4 (08:11→19:29)
--- NOTE | 2024-02-29 08:12 | PC.NURSE ---
respiratory at bedside for updraft this morning, patient ate breakfast. requesting medication for a cold sore and oxycodone - provider aware
--- NOTE | 2024-02-29 09:17 | P.PNIM_ITS ---
Subjective Subjective Date of Service: 02/29/24 Interval History: sob but improved Physical Exam 2 Vital Signs: Vital Signs: Last Vital Signs Temp 98.4 F 02/29/24 04:49 Pulse 67 02/29/24 04:49 Resp 12 02/29/24 04:49 BP 142/72 H 02/29/24 04:49 Pulse Ox 96 02/29/24 04:49 O2 Del Method Room Air 02/29/24 04:49 O2 Flow Rate 2 02/28/24 17:28 Oxygen Flow Rate 3 02/28/24 09:45 BMI result Body Mass Index 28.4 General: AO X 3, no acute distress Resp: wheezing bilateral, no accessory muscles used CVS: S1,S2,RRR GI: soft, non tender, non distended Neuro: motor grossly intact, alert Psych: appropriate affect, appropriate insight Objective Data Active Medications Acetaminophen (Acetaminophen 325 Mg Tablet) 650 mg PO Q6H PRN PRN Reason: Pain, Mild (Pain Scale 1-3), fever or headache Last Admin: 02/28/24 20:09 Dose: 650 mg Documented By: ADELA Albuterol/Ipratropium (Albuterol/Iprat 2.5/0.5mg 3 Ml Ampul.Neb) 3 ml INHALE RQ4H WHILE AWAKE [facility] Last Admin: 02/29/24 08:11 Dose: 3 ml Documented By: XAVI Apixaban (Apixaban 5 Mg Tablet) 5 mg PO BID [facility] Atorvastatin Calcium (Atorvastatin Calcium 10 Mg Tablet) 10 mg PO DAILY [facility] Calcium Carbonate (Calcium Carbonate 750 Mg Tab.Chew) 750 mg PO Q4H PRN PRN Reason: Heartburn Diltiazem HCl (Diltiazem Hcl Cd 240 Mg Cap.Er.Deg) 240 mg PO DAILY [facility]; Protocol Fentanyl (Fentanyl 100 Mcg Patch.Td72) 100 mcg TRANSDERMA Q3D@1200 [facility] Fluticasone/Umeclidinium/Vilanterol (Fluticasone/Umeclidinium/Vilanterol 100/62.5/25 Blst.W.Dev) 1 puff INHALE RDAILY [facility] Guaifenesin (Guaifenesin 200 Mg/10 Ml 10 Ml Liquid) 10 ml PO Q4H PRN PRN Reason: Cough Ceftriaxone Sodium 1 gm/ (Sodium Chloride) 50 mls @ 100 mls/hr IV Q24H [facility] Doxycycline Hyclate 100 mg/ (Sodium Chloride) 250 mls @ 166.67 mls/hr IV Q12H [facility] Last Infusion: 02/29/24 01:06 Dose: Infused Documented By: SOL Magnesium Hydroxide (Milk Of Magnesia 30 Ml Oral.Susp) 30 ml PO DAILY PRN PRN Reason: Constipation Methylprednisolone Sodium Succinate (Methylprednisolone Sod Succ 40 Mg/Ml Vial) 40 mg IVPUSH Q12H [facility] Last Admin: 02/28/24 20:04 Dose: 40 mg Documented By: ADELA Metoprolol Tartrate (Metoprolol Tartrate 25 Mg Tablet) 25 mg PO BID [facility]; Protocol Last Admin: 02/28/24 20:03 Dose: 25 mg Documented By: ADELA Multivitamins/Vitamin C (Multivitamin Tablet) 1 tab PO DAILY [facility] Non-Formulary Medication (Latanoprostene Bunod [Vyzulta]) 1 drop EYE-BOTH BEDTIME [facility] Pregabalin (Pregabalin 150 Mg Capsule) 150 mg PO DAILY [facility] Pyridoxine HCl (Pyridoxine Hcl (Vitamin B6) 50 Mg Tablet) 50 mg PO DAILY [facility] Tamsulosin HCl (Tamsulosin Hcl 0.4 Mg Capsule) 0.4 mg PO BEDTIME [facility] Vitamin D (Cholecalciferol (Vitamin D3) 25 Mcg Tablet) 25 mcg PO DAILY [facility] Labs 02/29/24 04:49 02/29/24 04:49 Labs: Laboratory Results - last 24 hr 02/28/24 02/28/24 02/28/24 10:01 10:03 10:24 MCV 105.0 H MCH 35.3 H MCHC 33.6 RDW 17.7 H Plt Count 236 MPV 10.2 Immature Gran % (Auto) 0.6 H Neut % (Auto) 84.5 H Lymph % (Auto) 7.1 L [place] % (Auto) 5.0 Eos % (Auto) 2.3 Baso % (Auto) 0.5 Lymph # (Auto) 0.8 L [place] # (Auto) 0.5 Eos # (Auto) 0.2 Baso # (Auto) 0.1 Abs Immat Gran (auto) 0.06 H Absolute Neuts (auto) 8.9 H Absolute Nucleated RBC 0.020 H Nucleated RBC % (auto) 0.2 PT 14.5 H INR 1.2 H Anion Gap 14 Estim Creat Clear Calc 84.4 Estimated GFR > 60 Random Glucose 135 H Lactic Acid 1.6 Calcium 8.9 Magnesium 2.1 Total Bilirubin 0.9 AST 35 ALT 32 Alkaline Phosphatase 68 Troponin I High Sens 355.6 H* D B-Natriuretic Peptide 602 H Total Protein 6.4 L Albumin 3.6 Urine Color Yellow Urine Appearance Clear Urine pH 8.0 Ur Specific [place] 1.010 Urine Protein 30 (1+) H Urine Glucose (UA) Negative Urine Ketones 15 Urine Blood Negative Urine Nitrite Negative Ur Leukocyte Esterase Negative Urine RBC 0-2 Urine WBC 0-5 Ur Squamous Epith Cells 0-2 Urine Bacteria None Seen Hyaline Casts 0-2 Influenza Type A (PCR) NEGATIVE Influenza Type B (PCR) NEGATIVE RSV RNA Qual (PCR) NEGATIVE SARS-CoV-2 RNA (RT-PCR) NEGATIVE 02/28/24 02/29/24 13:05 04:49 MCV 104.7 H MCH 34.6 H MCHC 33.1 RDW 17.4 H Plt Count 178 MPV 10.2 Immature Gran % (Auto) 0.7 H Neut % (Auto) 85.3 H Lymph % (Auto) 9.7 L [place] % (Auto) 4.3 Eos % (Auto) 0.0 Baso % (Auto) 0.0 Lymph # (Auto) 0.3 L [place] # (Auto) 0.1 Eos # (Auto) 0.0 Baso # (Auto) 0.0 Abs Immat Gran (auto) 0.02 Absolute Neuts (auto) 2.4 Absolute Nucleated RBC 0.020 H Nucleated RBC % (auto) 0.7 H PT INR Anion Gap 14 Estim Creat Clear Calc 96.3 Estimated GFR > 60 Random Glucose 175 H Lactic Acid Calcium 8.0 L D Magnesium Total Bilirubin AST ALT Alkaline Phosphatase Troponin I High Sens 307.3 H* B-Natriuretic Peptide Total Protein Albumin Urine Color Urine Appearance Urine pH Ur Specific [place] Urine Protein Urine Glucose (UA) Urine Ketones Urine Blood Urine Nitrite Ur Leukocyte Esterase Urine RBC Urine WBC Ur Squamous Epith Cells Urine Bacteria Hyaline Casts Influenza Type A (PCR) Influenza Type B (PCR) RSV RNA Qual (PCR) SARS-CoV-2 RNA (RT-PCR) Assessment and Plan (1) Elevated troponin: Status: Acute Plan 78M PMH chronic hypoxic respiratory failure on 2-3 L home O2 due to COPD, BPH presents with shortness of breath Chronic hypoxic respiratory failure due to COPD complicated by acute decompensation due to pneumonia complicated by sepsis Continue ceftriaxone and doxycycline, IV steroids, DuoNebs SVT Continue metoprolol and Cardizem, cardio eval, check echo Elevated troponin Likely demand ischemia, follow up Cardiology BPH Flomax Chronic back pain Continue fentanyl patch Hyperlipidemia Statin Paroxysmal atrial flutter Eliquis, Cardizem, metoprolol DVT prophylaxis on Eliquis Full code Reason for continued hospitalization: Still short of breath and very wheezy Quality Stroke Does the patient have a stroke diagnosis?: No VTE Prior VTE?: No VTE Risk Level:: Medical - moderate - high VTE Device Contraindication: Treatment Not Indicated VTE Drug Contraindication: N/A - Med Ordered
--- NOTE | 2024-02-29 09:36 | PM.CNCAR ---
History of Present Illness History of Present Illness Date of Service: 02/29/24 Chief complaint: pneumonia, hypoxia Narrative: This is a cardiology consultation regarding elevated troponins. Patient has history of COPD on home oxygen p.r.n. and many comorbidities. Essentially he is here for pneumonia/COPD exacerbation. In this context, elevated troponins. He also has had runs of narrow complex tachycardia thought to be SVT. He received adenosine. During recent hospitalization, also diagnosed to have paroxysmal atrial flutter and hence not clear if SVT is truly flutter rather. Any case, patient states his main issues shortness of breath. He does not have any angina or palpitations or any other complaints. No previously diagnosed coronary disease. Review of Systems Review of Systems: Yes all other systems are reviewed and are negative Constitutional: Constitutional: Reports as per HPI and Reports no additional constitutional complaints Eyes: Eyes: Reports as per HPI and Denies no additional eye complaints ENT: Denies system reviewed and no additional complaints, except as documented and Reports as per HPI Cardiovascular: Cardiovascular: Reports as per HPI, Reports no additional cardiovascular complaints, Denies acrocyanosis, Denies cool extremities, Denies chest pain, Denies leg edema, Denies lightheadedness, Denies palpitations and Reports dyspnea Respiratory: Respiratory: Reports as per HPI, Denies no additional respiratory complaints and Reports dyspnea Gastrointestinal: Gastrointestinal: Reports as per HPI and Denies no additional gastrointestinal complaints Genitourinary: Genitourinary: Reports no additional male genitourinary complaints and Reports as per HPI Musculoskeletal: Musculoskeletal: Reports no additional musculoskeletal complaints and Reports as per HPI Integumentary/Breasts: Skin/Breast: Reports system reviewed and no additional complaints, except as docu Neurologic: Reports system reviewed and no additional complaints, except as documented and Reports as per HPI Psychiatric: Psychiatric: Reports no additional psychiatric complaints and Reports as per HPI Endocrine: Endocrine: Reports no additional endocrine complaints, Reports as per HPI and Denies palpitations Hematologic/Lymphatic: Hematologic/Lymphatic: Reports no additional hematologic/lymphatic complaints and Reports as per HPI Allergic/Immunologic: Allergic/Immunologic: Reports no additional allergic/immunologic complaints and Reports as per HPI [facility] Past Medical History Medical History HLD (hyperlipidemia) Osteoarthritis BPH (benign prostatic hyperplasia) Skin lesion of back Chronic obstructive pulmonary disease, unspecified Diverticulosis of large intestine without perforation or abscess without bleeding 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 Family History Family History Mother Hypertension Father Hypertension Surgical History Surgical History History of excision of lesion (~04/17/23) History of repair of rotator cuff History of colon resection (~2001) Social History Social History Household Members: None Housing: House Do you presently have visiting nurse or other home services: Yes (Meals on wheels) Alcohol intake: never Comment: pt refusing alarms Patient Tobacco Use Status: Former Tobacco user Tobacco use type: Cigarette service: No Current occupational status: employed and retired 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 /[employer] Meds Allergies Allergy/AdvReac Type Severity Reaction Status Date / Time No Known Allergies Allergy Mild NONE Verified 02/28/24 09:47 Active Medications: Current Medications Acetaminophen (Acetaminophen 325 Mg Tablet) 650 mg PO Q6H PRN PRN Reason: Pain, Mild (Pain Scale 1-3), fever or headache Last Admin: 02/28/24 20:09 Dose: 650 mg Albuterol/Ipratropium (Albuterol/Iprat 2.5/0.5mg 3 Ml Ampul.Neb) 3 ml INHALE RQ4H WHILE AWAKE [facility] Last Admin: 02/29/24 08:11 Dose: 3 ml Apixaban (Apixaban 5 Mg Tablet) 5 mg PO BID [facility] Atorvastatin Calcium (Atorvastatin Calcium 10 Mg Tablet) 10 mg PO DAILY [facility] Calcium Carbonate (Calcium Carbonate 750 Mg Tab.Chew) 750 mg PO Q4H PRN PRN Reason: Heartburn Diltiazem HCl (Diltiazem Hcl Cd 240 Mg Cap.Er.Deg) 240 mg PO DAILY [facility]; Protocol Fentanyl (Fentanyl 100 Mcg Patch.Td72) 100 mcg TRANSDERMA Q3D@1200 [facility] Fluticasone/Umeclidinium/Vilanterol (Fluticasone/Umeclidinium/Vilanterol 100/62.5/25 Blst.W.Dev) 1 puff INHALE RDAILY [facility] Guaifenesin (Guaifenesin 200 Mg/10 Ml 10 Ml Liquid) 10 ml PO Q4H PRN PRN Reason: Cough Ceftriaxone Sodium 1 gm/ (Sodium Chloride) 50 mls @ 100 mls/hr IV Q24H ANAID Doxycycline Hyclate 100 mg/ (Sodium Chloride) 250 mls @ 166.67 mls/hr IV Q12H [facility] Last Infusion: 02/29/24 01:06 Dose: Infused Magnesium Hydroxide (Milk Of Magnesia 30 Ml Oral.Susp) 30 ml PO DAILY PRN PRN Reason: Constipation Methylprednisolone Sodium Succinate (Methylprednisolone Sod Succ 40 Mg/Ml Vial) 40 mg IVPUSH Q12H [facility] Last Admin: 02/28/24 20:04 Dose: 40 mg Metoprolol Tartrate (Metoprolol Tartrate 25 Mg Tablet) 25 mg PO BID [facility]; Protocol Last Admin: 02/28/24 20:03 Dose: 25 mg Multivitamins/Vitamin C (Multivitamin Tablet) 1 tab PO DAILY [facility] Non-Formulary Medication (Latanoprostene Bunod [Vyzulta]) 1 drop EYE-BOTH BEDTIME [facility] Pregabalin (Pregabalin 150 Mg Capsule) 150 mg PO DAILY [facility] Pyridoxine HCl (Pyridoxine Hcl (Vitamin B6) 50 Mg Tablet) 50 mg PO DAILY [facility] Tamsulosin HCl (Tamsulosin Hcl 0.4 Mg Capsule) 0.4 mg PO BEDTIME [facility] Vitamin D (Cholecalciferol (Vitamin D3) 25 Mcg Tablet) 25 mcg PO DAILY [facility] Home Medications ?Medication ?Instructions ?Recorded ?Confirmed ?Last Taken ?Type atorvastatin 10 mg tablet 10 mg PO DAILY 06/19/20 02/28/24 10/16/23 History fentanyl 100 mcg/hr transdermal 1 patch topical Q3D@1800 01/02/22 02/28/24 10/16/23 History patch albuterol sulfate 90 mcg/actuation 2 puff inhalation Q4H PRN 10/17/23 02/28/24 10/16/23 History aerosol inhaler Shortness Of Breath Or Wheezing cholecalciferol (vitamin D3) 25 25 mcg PO DAILY 10/17/23 02/28/24 10/16/23 History mcg (1,000 unit) tablet multivitamin 1 tab PO DAILY 10/17/23 02/28/24 10/16/23 History tamsulosin 0.4 mg capsule 0.4 mg PO BEDTIME 10/17/23 02/28/24 10/16/23 History ipratropium 0.5 mg-albuterol 3 mg 1 ml inhalation QID PRN dyspnea 01/07/24 02/28/24 Unknown History (2.5 mg base)/3 mL nebulization soln latanoprostene bunod 0.024 % eye 1 drp ophthalmic (eye) BEDTIME 01/07/24 02/28/24 Unknown History drops (Vyzulta) pregabalin 75 mg capsule 150 mg PO DAILY 01/07/24 02/28/24 Unknown History pyridoxine (vitamin B6) 50 mg 50 mg PO DAILY 01/07/24 02/28/24 Unknown History capsule (Vitamin B-6) triamcinolone acetonide 0.1 % 1 appl topical DAILY PRN Rash 01/07/24 02/28/24 Unknown History topical cream prednisone 10 mg tablet 10 mg PO DAILY 02/28/24 02/28/24 Unknown History Physical Exam Vital Signs: Vital Signs: Last Vital Signs Temp 98.4 F 02/29/24 04:49 Pulse 67 02/29/24 04:49 Resp 12 02/29/24 04:49 BP 142/72 H 02/29/24 04:49 Pulse Ox 96 02/29/24 04:49 O2 Del Method Room Air 02/29/24 04:49 O2 Flow Rate 2 02/28/24 17:28 Oxygen Flow Rate 3 02/28/24 09:45 BMI result Body Mass Index 28.4 Const: General: comfortable and no acute distress Orientation/consciousness: patient oriented x3 HEENT: Other: Unremarkable Head: Yes normal to inspection Neck: Neck: Yes normal visual inspection Chest: Chest palpation & inspection: normal inspection of the chest Resp: Auscultation: wheezes and diminished lung sounds Cardio: Palpation: normal PMI Heart sounds: S1 normal heart sound present, S2 normal heart sound present, no gallops, no murmurs and no rubs GI: Palpation (GI): Soft to palpation Back/Spine/Pelvis: Other: unremarkable Skin: General skin exam: no rashes or lesions noted Neuro: General: patient oriented x3 Extrem: General: Yes normal to inspection Psych: Mental Status: mental status grossly normal Objective Labs and Meds 02/29/24 04:49 02/29/24 04:49 Lab results: Laboratory Results - last 24 hr 0702/28/24 02/28/24 10:01 10:03 10:24 WBC 10.5 RBC 3.17 L Hgb 11.2 L Hct 33.3 L MCV 105.0 H MCH 35.3 H MCHC 33.6 RDW 17.7 H Plt Count 236 MPV 10.2 Immature Gran % (Auto) 0.6 H Neut % (Auto) 84.5 H Lymph % (Auto) 7.1 L Hardy % (Auto) 5.0 Eos % (Auto) 2.3 Baso % (Auto) 0.5 Lymph # (Auto) 0.8 L Hardy # (Auto) 0.5 Eos # (Auto) 0.2 Baso # (Auto) 0.1 Abs Immat Gran (auto) 0.06 H Absolute Neuts (auto) 8.9 H Absolute Nucleated RBC 0.020 H Nucleated RBC % (auto) 0.2 PT 14.5 H INR 1.2 H Sodium 140 Potassium 3.8 Chloride 101 Carbon Dioxide 29 Anion Gap 14 BUN 10 Creatinine 0.89 Estim Creat Clear Calc 84.4 Estimated GFR > 60 Random Glucose 135 H Lactic Acid 1.6 Calcium 8.9 Magnesium 2.1 Total Bilirubin 0.9 AST 35 ALT 32 Alkaline Phosphatase 68 Troponin I High Sens 355.6 H* D B-Natriuretic Peptide 602 H Total Protein 6.4 L Albumin 3.6 Urine Color Yellow Urine Appearance Clear Urine pH 8.0 Ur Specific Holliday 1.010 Urine Protein 30 (1+) H Urine Glucose (UA) Negative Urine Ketones 15 Urine Blood Negative Urine Nitrite Negative Ur Leukocyte Esterase Negative Urine RBC 0-2 Urine WBC 0-5 Ur Squamous Epith Cells 0-2 Urine Bacteria None Seen Hyaline Casts 0-2 Influenza Type A (PCR) NEGATIVE Influenza Type B (PCR) NEGATIVE RSV RNA Qual (PCR) NEGATIVE SARS-CoV-2 RNA (RT-PCR) NEGATIVE 02/28/24 02/29/24 13:05 04:49 WBC 2.8 L RBC 2.54 L Hgb 8.8 L D Hct 26.6 L D MCV 104.7 H MCH 34.6 H MCHC 33.1 RDW 17.4 H Plt Count 178 MPV 10.2 Immature Gran % (Auto) 0.7 H Neut % (Auto) 85.3 H Lymph % (Auto) 9.7 L Hardy % (Auto) 4.3 Eos % (Auto) 0.0 Baso % (Auto) 0.0 Lymph # (Auto) 0.3 L Hardy # (Auto) 0.1 Eos # (Auto) 0.0 Baso # (Auto) 0.0 Abs Immat Gran (auto) 0.02 Absolute Neuts (auto) 2.4 Absolute Nucleated RBC 0.020 H Nucleated RBC % (auto) 0.7 H PT INR Sodium 143 Potassium 3.9 Chloride 107 Carbon Dioxide 26 Anion Gap 14 BUN 10 Creatinine 0.78 Estim Creat Clear Calc 96.3 Estimated GFR > 60 Random Glucose 175 H Lactic Acid Calcium 8.0 L D Magnesium Total Bilirubin AST ALT Alkaline Phosphatase Troponin I High Sens 307.3 H* B-Natriuretic Peptide Total Protein Albumin Urine Color Urine Appearance Urine pH Ur Specific Holliday Urine Protein Urine Glucose (UA) Urine Ketones Urine Blood Urine Nitrite Ur Leukocyte Esterase Urine RBC Urine WBC Ur Squamous Epith Cells Urine Bacteria Hyaline Casts Influenza Type A (PCR) Influenza Type B (PCR) RSV RNA Qual (PCR) SARS-CoV-2 RNA (RT-PCR) ECG Interpretation: EKG with a narrow complex tachycardia at 01:48/Min; possible atrial flutter. Can not exclude SVT. Repeat EKG with sinus rhythm and T inversions in the anterior leads and nonspecific ST-T changes. PACs. Imaging Radiologist's impression: Impressions Chest X-Ray 02/28/24 10:09 IMPRESSION: Patchy bibasilar airspace opacities new from prior suspicious for infection or aspiration, recommend follow-up radiographs to ensure resolution. Assessment and Plan (1) NSTEMI (non-ST elevated myocardial infarction): Status: Acute Troponin levels are 355 and 307. Suggestive of type 2 NSTEMI. He is already on Eliquis. Eventually, ischemia workup after the pulmonary issues resolved. Possible cardiac catheterization. (2) Atrial flutter with rapid ventricular response: Status: Acute On diltiazem and we can increase the dose further. Also on Eliquis. Monitor hemoglobin. There is a drop in hemoglobin but there is also drop in white cell count and hence not clear lipids all accurate or not. May follow CBC. Procedures Date of Service Date of Service: 02/29/24
[2024-02-29] MEDS: Doxycycline Hyclate 100 MG in 0.9 % Sodium Chloride 250 ML 166.67 MG IV ×2 (09:56→20:55)
[2024-02-29] MEDS: cefTRIAXone sodium 1 GM in 0.9 % Sodium Chloride 50 ML IV (09:56)
[2024-02-29] MEDS: methylPREDNISolone Sod Succ 40 MG/ML VIAL IVPUSH ×2 (09:56→20:56)
[2024-02-29] MEDS: Atorvastatin Calcium 10 MG TABLET PO (09:56)
[2024-02-29] MEDS: Pyridoxine HCl (Vitamin B6) 50 MG TABLET PO (09:56)
[2024-02-29] MEDS: Multivitamin TABLET 1 TAB PO (09:56)
[2024-02-29] MEDS: Cholecalciferol (Vitamin D3) 25 MCG TABLET PO (09:57)
[2024-02-29] MEDS: Pregabalin 150 MG CAPSULE PO (09:57)
[2024-02-29] MEDS: Acetaminophen 325 MG TABLET 650 MG PO ×2 (09:57→23:03)
[2024-02-29] MEDS: dilTIAZem HCL CD 120 MG CAP.ER.DEG PO (10:01)
[2024-02-29] MEDS: Apixaban 5 MG TABLET PO ×2 (10:02→20:57)
[2024-02-29] MEDS: oxyCODONE HCl Immed Release 5 MG TABLET PO ×2 (10:18→20:56)
[2024-02-29 10:30] LABS: Adenovirus PCR Not Detected (Not Detect.); Bordetella parapertussis PCR Not Detected (Not Detect.); Bordetella pertussis PCR Not Detected (Not Detect.); Chlamydia pneumoniae PCR Not Detected (Not Detect.); Coronavirus 229E PCR Not Detected (Not Detect.); Coronavirus HKU1 PCR Not Detected (Not Detect.); Coronavirus NL63 PCR Not Detected (Not Detect.); Coronavirus OC43 PCR Not Detected (Not Detect.); Human metapneumovirus PCR Not Detected (Not Detect.); Influenza A PCR Not Detected (Not Detect.); Influenza B PCR Not Detected (Not Detect.); Mycoplasma pneumoniae PCR Not Detected (Not Detect.); Parainfluenza 1 PCR Not Detected (Not Detect.); Parainfluenza 2 PCR Not Detected (Not Detect.); Parainfluenza 3 PCR Not Detected (Not Detect.); Parainfluenza 4 PCR Not Detected (Not Detect.); RSV PCR Not Detected (Not Detect.); Rhino/Enterovirus PCR Not Detected (Not Detect.); SARS-CoV-2 PCR Not Detected (Not Detect.)
[2024-02-29] MEDS: valACYclovir HCL 1,000 MG TABLET 1000 MG PO (11:29)
[2024-02-29] MEDS: Tamsulosin HCL 0.4 MG CAPSULE PO (20:56)
[2024-02-29] MEDS: guaiFENesin 200 MG/10 ML 10 ML LIQUID PO (23:06)
[2024-03-01] VITALS (10 sets, daily range): BP systolic 120–165; BP diastolic 58–74; PULSE 64–94; RESP 14–20; TEMP 36.8–37.1; O2SAT 69–97
[2024-03-01] MEDS: guaiFENesin 200 MG/10 ML 10 ML LIQUID PO ×2 (03:39→17:36)
[2024-03-01 05:55] LABS: Hematocrit 26.5 % (42.0-52.0); Hemoglobin 8.5 g/dl (14.0-18.0); Mean Corpuscular HGB Conc 32.1 g/dl (31.0-36.0); Mean Corpuscular Hemoglobin 34.7 pg (27.0-33.0); Mean Corpuscular Volume 108.2 fL (80.0-98.0); Mean Platelet Volume 10.6 fL (9.4-12.4); Platelet Count 171 X10*3/uL (160-400); Red Blood Count 2.45 X10*6/uL (4.60-5.80); Red Cell Distribution Width 17.5 % (11.0-16.0); White Blood Count 6.3 X10*3/uL (4.8-10.8)
[2024-03-01 06:07] LABS: Anion Gap 11 (12-20); Blood Urea Nitrogen 20 mg/dL (9-16); Calcium 8.3 mg/dL (8.4-10.2); Carbon Dioxide 27 mmol/L (22-29); Chloride 107 mmol/L (96-108); Creatinine Clr Calc Pharmacy 90.9; Estimated Glomerular Filt Rate > 60; Glucose Fasting 168 mg/dL (60-99); Potassium 4.4 mmol/L (3.3-5.1); Sodium 141 mmol/L (135-145)
--- NOTE | 2024-03-01 07:00 | CA_ITS ---
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 The visually estimated ejection fraction is between 55-60%. Diastolic function is normal for age. - Normal right ventricular cavity size and systolic function. Findings Procedure Information Contrast agent, definity, is being given per protocol without apparent complications. Left Ventricle Normal left ventricular size, thickness, systolic function, and wall motion. The visually estimated ejection fraction is between 55-60%. Diastolic function is normal for age. Right Ventricle Normal right ventricular cavity size and systolic function. Atria The left atrium is normal in size. Aortic Valve The aortic valve was not well visualized. There is mild aortic valve stenosis. The peak aortic velocity is 2.40 m/s. The mean gradient is 11 mmHg. There is no aortic valve regurgitation. Mitral Valve The mitral valve appears normal. There is trace mitral valve regurgitation. There is no mitral valve stenosis. Pulmonic Valve The pulmonic valve is likely normal. Tricuspid Valve Normal tricuspid valve structure. There is trace tricuspid valve regurgitation. Significantly elevated right atrial pressure. Moderate pulmonary hypertension is present. Great Vessels There is mild dilatation of the ascending aorta measuring 4.10 cm. Venous The inferior vena cava is dilated and collapses less than 50% with inspiration. Pericardium/Pleural There is no evidence of pericardial effusion. Prior Study Comparison Changes noted compared to prior study. Mild , mild dilation of ascending aorta. Measurements 2D Linear Measurements IVSd: 0.95 0.6-0.9/0.6-1.0 cm LVIDd: 5.78 3.9-5.3/4.2-5.9 cm LVIDd Index: 2.65 2.4-3.2/2.2-3.1 cm/m2 LVIDs: 5.00 2.0-3.6 cm LVPWd: 0.87 0.7-1.1 cm LA Diam: 3.80 2.7-3.8/3.0-4.0 cm LAIDs Index: 1.74 1.5-2.3 cm/m2 LV Mass: 254.99 67-162/88-224 g LV Mass Index: 116.97 43-95/49-115 g/m2 LVOT Diam: 2.30 3.0+(-)1.3 cm 2D Systolic Function EF 4C: 74.50 >55% EF 2C: 63.30 >55% EF BiP: 68.20 >55% Mitral Valve MV Pk E: 0.91 MV PK A: 0.63 MV Decel Time: 163.00 E/A: 1.40 E'Lateral: 9.57 E'Medial: 7.94 E/E' Med: 11.40 E/E' Lat: 9.50 PHT: 48.00 MVA PHT: 4.58 Decel Isabela: 5.58 Aortic Valve AoV Pk Taqueria: 2.40 AoV Mn Taqueria: 1.54 AoV VTI: 0.49 AoV Pk Grad: 23.00 Aov Mn Grad: 11.00 ALAN Cont.VTI: 2.30 LVOT LVOT Pk Taqueria: 1.49 LVOT Mn Taqueria: 0.96 LVOT VTI: 0.27 LVOT Pk Grad: 9.00 LVOT Mn Grad: 5.00 LVOT Diam: 2.30 LVOT Area: 4.15 Diastolic Function MV Pk E: 0.91 MV Pk A: 0.63 E/A: 1.40 E'Medial: 7.94 E/E' Med: 11.40 E' Laterial: 9.57 E/E' Lat: 9.50 Right Ventricle TAPSE (mm): 27.00 TVS' Taqueria: 19.00 Tricuspid Valve TR Pk Taqueria: 3.11 TR Pk Grad: 39.00 RA Press: 15.00 RVSP: 54.00 Great Vessels Aorta Ao Asc: 4.10 2.1-3.4 cm Pulmonary Valve PV Pk Taqueria: 1.45 Peak PV Grad: 8.00 Updated in Other Vendor System with Status of Final Wood Steel MD electronically signed on 03/01/2024 1:33:49 PM with status of Final
[2024-03-01] MEDS: Albuterol/Iprat 2.5/0.5MG 3 ML AMPUL.NEB INHALE ×4 (08:10→20:42)
[2024-03-01] MEDS: Fluticasone/Umeclidinium/Vilanterol 100/62.5/25 BLST.W.DEV 1 PUFF INHALE (08:11)
--- NOTE | 2024-03-01 08:29 | MHC.CM.PN ---
CM met with Patient at bedside and addressed IMM with him (original given to Patient and a copy placed on the chart) and assisted him with the completion of a HCP(he named his Friend/Barber as his Agent). Patient lives alone in house,obtains his home O2 from [facility], and required no DME to assist with mobility. Patient may benefit from a PT eval to assist with disposition. CM has initiated and will follow for dc planning. PCP is Dr. Nikita Rivera.
[2024-03-01] MEDS: Pyridoxine HCl (Vitamin B6) 50 MG TABLET PO (08:45)
[2024-03-01] MEDS: dilTIAZem HCL CD 180 MG CAP.ER.24H 360 MG PO (08:45)
[2024-03-01] MEDS: Cholecalciferol (Vitamin D3) 25 MCG TABLET PO (08:45)
[2024-03-01] MEDS: predniSONE 20 MG TABLET 40 MG PO (08:45)
[2024-03-01] MEDS: Pregabalin 150 MG CAPSULE PO (08:46)
[2024-03-01] MEDS: Apixaban 5 MG TABLET PO ×2 (08:46→21:14)
[2024-03-01] MEDS: Multivitamin TABLET 1 TAB PO (08:46)
[2024-03-01] MEDS: Atorvastatin Calcium 10 MG TABLET PO (08:46)
[2024-03-01] MEDS: Doxycycline Monohydrate 100 MG CAPSULE PO ×2 (08:46→21:14)
[2024-03-01] MEDS: cefTRIAXone sodium 1 GM in 0.9 % Sodium Chloride 50 ML IV (08:47)
--- NOTE | 2024-03-01 09:24 | HO.PM.IMPN ---
Subjective Subjective Date of Service: 03/01/24 Interval History: Some improvement but still with shortness of breath Physical Exam Vital Signs: Vital Signs: Last Vital Signs Temp 98.8 F 03/01/24 07:37 Pulse 69 03/01/24 08:11 Resp 19 03/01/24 08:11 BP 158/74 H 03/01/24 07:37 Pulse Ox 96 03/01/24 07:37 O2 Del Method Nasal Cannula 03/01/24 07:37 O2 Flow Rate 3 03/01/24 07:37 Oxygen Flow Rate 3 02/28/24 09:45 BMI result Body Mass Index 28.7 Const: General: comfortable and no acute distress Orientation/consciousness: patient oriented x3 HEENT: Other: Unremarkable Head: Yes normal to inspection Neck: Neck: Yes normal visual inspection Chest: Chest palpation & inspection: normal inspection of the chest Resp: Auscultation: wheezes and diminished lung sounds Cardio: Palpation: normal PMI Heart sounds: S1 normal heart sound present, S2 normal heart sound present, no gallops, no murmurs and no rubs GI: Palpation (GI): Soft to palpation Back/Spine/Pelvis: Other: unremarkable Skin: General skin exam: no rashes or lesions noted Neuro: General: patient oriented x3 Extrem: General: Yes normal to inspection Psych: Mental Status: mental status grossly normal Objective Data Active Medications Acetaminophen (Acetaminophen 325 Mg Tablet) 650 mg PO Q6H PRN PRN Reason: Pain, Mild (Pain Scale 1-3), fever or headache Last Admin: 02/29/24 23:03 Dose: 650 mg Documented By: LINDA Albuterol/Ipratropium (Albuterol/Iprat 2.5/0.5mg 3 Ml Ampul.Neb) 3 ml INHALE RQ4H WHILE AWAKE [facility] Last Admin: 03/01/24 08:10 Dose: 3 ml Documented By: CEZAR Apixaban (Apixaban 5 Mg Tablet) 5 mg PO BID [facility] Last Admin: 03/01/24 08:46 Dose: 5 mg Documented By: GREGORIO Atorvastatin Calcium (Atorvastatin Calcium 10 Mg Tablet) 10 mg PO DAILY [facility] Last Admin: 03/01/24 08:46 Dose: 10 mg Documented By: GREGORIO Calcium Carbonate (Calcium Carbonate 750 Mg Tab.Chew) 750 mg PO Q4H PRN PRN Reason: Heartburn Diltiazem HCl (Diltiazem Hcl Cd 180 Mg Cap.Er.24h) 360 mg PO DAILY [facility]; Protocol Last Admin: 03/01/24 08:45 Dose: 360 mg Documented By: GREGORIO Doxycycline Monohydrate (Doxycycline Monohydrate 100 Mg Capsule) 100 mg PO BID [facility] Last Admin: 03/01/24 08:46 Dose: 100 mg Documented By: GREGORIO Fentanyl (Fentanyl 100 Mcg Patch.Td72) 100 mcg TRANSDERMA Q3D@1200 [facility] Fluticasone/Umeclidinium/Vilanterol (Fluticasone/Umeclidinium/Vilanterol 100/62.5/25 Blst.W.Dev) 1 puff INHALE RDAILY [facility] Last Admin: 03/01/24 08:11 Dose: 1 puff Documented By: CEZAR Guaifenesin (Guaifenesin 200 Mg/10 Ml 10 Ml Liquid) 10 ml PO Q4H PRN PRN Reason: Cough Last Admin: 03/01/24 03:39 Dose: 10 ml Documented By: LINDA Ceftriaxone Sodium 1 gm/ (Sodium Chloride) 50 mls @ 100 mls/hr IV Q24H [facility] Last Admin: 03/01/24 08:47 Dose: 100 mls/hr Documented By: GREGORIO Magnesium Hydroxide (Milk Of Magnesia 30 Ml Oral.Susp) 30 ml PO DAILY PRN PRN Reason: Constipation Multivitamins/Vitamin C (Multivitamin Tablet) 1 tab PO DAILY [facility] Last Admin: 03/01/24 08:46 Dose: 1 tab Documented By: GREGORIO Non-Formulary Medication (Latanoprostene Bunod [Vyzulta]) 1 drop EYE-BOTH BEDTIME [facility] Oxycodone HCl (Oxycodone Hcl Immed Release 5 Mg Tablet) 5 mg PO Q4H PRN PRN Reason: moderate to severe pain Last Admin: 02/29/24 20:56 Dose: 5 mg Documented By: LINDA Prednisone (Prednisone 20 Mg Tablet) 40 mg PO DAILY [facility] Last Admin: 03/01/24 08:45 Dose: 40 mg Documented By: GREGORIO Pregabalin (Pregabalin 150 Mg Capsule) 150 mg PO DAILY [facility] Last Admin: 03/01/24 08:46 Dose: 150 mg Documented By: GREGORIO Pyridoxine HCl (Pyridoxine Hcl (Vitamin B6) 50 Mg Tablet) 50 mg PO DAILY [facility] Last Admin: 03/01/24 08:45 Dose: 50 mg Documented By: GREGORIO Tamsulosin HCl (Tamsulosin Hcl 0.4 Mg Capsule) 0.4 mg PO BEDTIME [facility] Last Admin: 02/29/24 20:56 Dose: 0.4 mg Documented By: LINDA Vitamin D (Cholecalciferol (Vitamin D3) 25 Mcg Tablet) 25 mcg PO DAILY [facility] Last Admin: 03/01/24 08:45 Dose: 25 mcg Documented By: GREGORIO Labs 03/01/24 05:31 03/01/24 05:31 Labs: Laboratory Results - last 24 hr 02/28/24 03/01/24 16:00 05:31 MCV 108.2 H MCH 34.7 H MCHC 32.1 RDW 17.5 H Plt Count 171 MPV 10.6 Absolute Nucleated RBC 0.000 Nucleated RBC % (auto) 0.0 Anion Gap 11 L Estim Creat Clear Calc 90.9 Estimated GFR > 60 Fasting Glucose 168 H Calcium 8.3 L Respiratory Panel Campos See Note Adenovirus (Rapid PCR) Not Detected B.pert (TEM-PCR) Not Detected B.parapertussis DNA PCR Not Detected C. pneumoniae DNA (PCR) Not Detected Coronavirus OC43 (PCR) Not Detected Coronavirus HKU1 (PCR) Not Detected Coronavirus 229E (PCR) Not Detected Coronavirus NL63 (PCR) Not Detected Human Metapneumovir PCR Not Detected Influenza A (RT-PCR) Not Detected Influenza B (RT-PCR) Not Detected M. pneumoniae (PCR) Not Detected Parainfluenza 1 (PCR) Not Detected Parainfluenza 2 (PCR) Not Detected Parainfluenza 3 (PCR) Not Detected Parainfluenza 4 (PCR) Not Detected RSV (PCR) Not Detected Entero/Rhino (PCR) Not Detected SARS-CoV-2 RNA (RT-PCR) Not Detected Microbiology Microbiology Results: Microbiology 02/29/24 10:00 Gram Stain - Final Sputum - Expectorated Sputum Culture - Final 02/28/24 10:06 Blood Culture - Preliminary Blood - Venous No growth after 24 hours. 02/28/24 10:06 Blood Culture - Preliminary Blood - Venous No growth after 24 hours. Assessment and Plan (1) Elevated troponin: Status: Acute Plan 78M PMH chronic hypoxic respiratory failure on 2-3 L home O2 due to COPD, BPH presents with shortness of breath Chronic hypoxic respiratory failure due to COPD complicated by acute decompensation due to pneumonia complicated by sepsis Continue ceftriaxone and doxycycline, IV steroids, DuoNebs SVT vs pflutter Continue increased dose Cardizem, check echo Elevated troponin Likely demand ischemia, outpatient ischemic work up recommended BPH Flomax Chronic back pain Continue fentanyl patch Hyperlipidemia Statin Paroxysmal atrial flutter Eliquis, Cardizem DVT prophylaxis on Eliquis Full code Reason for continued hospitalization: Still short of breath and very wheezy Quality Stroke Does the patient have a stroke diagnosis?: No VTE Prior VTE?: No VTE Risk Level:: Medical - moderate - high VTE Device Contraindication: Treatment Not Indicated VTE Drug Contraindication: N/A - Med Ordered
[2024-03-01] MEDS: oxyCODONE HCl Immed Release 5 MG TABLET PO ×2 (10:59→23:38)
[2024-03-01] MEDS: ALPRAZolam 0.25 MG TABLET PO ×2 (11:00→19:34)
--- NOTE | 2024-03-01 11:03 | PM.PNCARD ---
Subjective Subjective Date of Service: 03/01/24 Interval history: Seen and examined at bedside. Denying any chest discomfort. Still quite short of breath and wheezing. Physical Exam Vital Signs: Last Vital Signs Temp 98.8 F 03/01/24 07:37 Pulse 69 03/01/24 08:11 Resp 19 03/01/24 08:11 BP 158/74 H 03/01/24 07:37 Pulse Ox 96 03/01/24 07:37 O2 Del Method Nasal Cannula 03/01/24 07:37 O2 Flow Rate 3 03/01/24 07:37 Oxygen Flow Rate 3 02/28/24 09:45 BMI result Body Mass Index 28.7 GENERAL APPEARANCE: Short of breath. On supplemental oxygen. NECK: no carotid bruit, + jugular venous distention. SKIN: no suspicious lesions, warm and dry. HEART: no murmurs, regular rate and rhythm. LUNGS: Mild wheezes. ABDOMEN: soft, nontender. EXTREMITIES: no edema. PERIPHERAL PULSES: equal. NEUROLOGIC: No gross deficits, AAO X 3 Objective Labs and Meds 03/01/24 05:31 03/01/24 05:31 Lab results: Laboratory Results - last 24 hr 03/01/24 05:31 WBC 6.3 RBC 2.45 L Hgb 8.5 L Hct 26.5 L MCV 108.2 H MCH 34.7 H MCHC 32.1 RDW 17.5 H Plt Count 171 MPV 10.6 Absolute Nucleated RBC 0.000 Nucleated RBC % (auto) 0.0 Sodium 141 Potassium 4.4 Chloride 107 Carbon Dioxide 27 Anion Gap 11 L BUN 20 H Creatinine 0.83 Estim Creat Clear Calc 90.9 Estimated GFR > 60 Fasting Glucose 168 H Calcium 8.3 L Progress Note: A&P Assessment and plan (1) COPD exacerbation: Status: Acute (2) Elevated troponin: Status: Acute Plan 78-year-old gentleman with background of tobacco abuse and COPD presenting with shortness of breath and COPD exacerbation. Still quite short of breath and wheezy. Continue treatment for COPD. He has mild JVD. He is also anemic with hemoglobin of 8.5. Diltiazem was increased to 360 mg. Diltiazem endorses more than 120 mg with no wax has shown to increase bleeding risk. Decrease the dose to 120 mg from tomorrow. Add carvedilol 3.125 mg twice a day. Blood pressure is elevated. He has precordial T-wave inversions. Echocardiography was done today which I will review to see if he has any wall motion abnormalities. Currently not in any shape to do any ischemic evaluation. As breathing improves we will discuss whether we transfer him for diagnostic catheterization. Thank you for allowing me to participate in the care of your patient. Please feel free to contact me if you have any questions. Time Spent With Patient Time: Total time managing care of this patient today ____ minutes. Progress Note: Quality Stroke Does the patient have a stroke diagnosis?: No Procedures Date of Service Date of Service: 03/01/24
--- NOTE | 2024-03-01 11:14 | MHC.CM.PN ---
Per ROUNDS discussion, Patient is not yet medically cleared for dc (still with SOB); home is the goal and CM will continue to follow.
[2024-03-01] MEDS: Tamsulosin HCL 0.4 MG CAPSULE PO (21:14)
[2024-03-02] VITALS (10 sets, daily range): BP systolic 126–150; BP diastolic 63–70; PULSE 55–101; RESP 18–20; TEMP 36.5–37.1; O2SAT 95–99
--- NOTE | 2024-03-02 | ECG_ITS ---
Test Reason : T wave inversions Blood Pressure : / mmHG Vent. Rate : 074 BPM Atrial Rate : 074 BPM P-R Int : 170 ms QRS Dur : 096 ms QT Int : 414 ms P-R-T Axes : 000 -13 077 degrees QTc Int : 459 ms Sinus rhythm with Premature atrial complexes Low voltage QRS Septal infarct (cited on or before 28-FEB-2024) Possible Lateral infarct (cited on or before 28-FEB-2024) T wave abnormality, consider anterior ischemia Abnormal ECG When compared with ECG of 28-FEB-2024 10:14, QRS axis Shifted right Serial changes of Septal infarct Present Referred By: Wood Steel Electronically Signed By:Wood Steel
[2024-03-02] MEDS: oxyCODONE HCl Immed Release 5 MG TABLET PO ×3 (06:32→21:01)
[2024-03-02 07:01] LABS: Hematocrit 24.7 % (42.0-52.0); Mean Corpuscular HGB Conc 32.4 g/dl (31.0-36.0); Mean Corpuscular Hemoglobin 35.2 pg (27.0-33.0); Mean Corpuscular Volume 108.8 fL (80.0-98.0); Mean Platelet Volume 10.4 fL (9.4-12.4); Platelet Count 154 X10*3/uL (160-400); Red Blood Count 2.27 X10*6/uL (4.60-5.80); White Blood Count 5.8 X10*3/uL (4.8-10.8)
[2024-03-02 07:08] LABS: Anion Gap 10 (12-20); Blood Urea Nitrogen 21 mg/dL (9-16); Calcium 8.3 mg/dL (8.4-10.2); Carbon Dioxide 27 mmol/L (22-29); Chloride 107 mmol/L (96-108); Creatinine Clr Calc Pharmacy 104.8; Estimated Glomerular Filt Rate > 60; Glucose Fasting 97 mg/dL (60-99); Potassium 3.9 mmol/L (3.3-5.1); Sodium 140 mmol/L (135-145)
[2024-03-02] MEDS: Albuterol/Iprat 2.5/0.5MG 3 ML AMPUL.NEB INHALE ×4 (07:50→19:42)
[2024-03-02] MEDS: Fluticasone/Umeclidinium/Vilanterol 100/62.5/25 BLST.W.DEV 1 PUFF INHALE (07:51)
[2024-03-02] MEDS: Doxycycline Monohydrate 100 MG CAPSULE PO ×2 (09:37→19:50)
[2024-03-02] MEDS: Atorvastatin Calcium 10 MG TABLET PO (09:37)
[2024-03-02] MEDS: Apixaban 5 MG TABLET PO ×2 (09:37→19:50)
[2024-03-02] MEDS: predniSONE 20 MG TABLET 40 MG PO (09:37)
[2024-03-02] MEDS: Multivitamin TABLET 1 TAB PO (09:37)
[2024-03-02] MEDS: Cholecalciferol (Vitamin D3) 25 MCG TABLET PO (09:37)
[2024-03-02] MEDS: dilTIAZem HCL CD 120 MG CAP.ER.DEG PO (09:37)
[2024-03-02] MEDS: Pyridoxine HCl (Vitamin B6) 50 MG TABLET PO (09:37)
[2024-03-02] MEDS: Pregabalin 150 MG CAPSULE PO (09:37)
[2024-03-02] MEDS: cefTRIAXone sodium 1 GM in 0.9 % Sodium Chloride 50 ML IV (09:38)
[2024-03-02] MEDS: fentaNYL 100 MCG PATCH.TD72 TRANSDERMA (11:23)
--- NOTE | 2024-03-02 11:51 | HO.PM.IMPN ---
Subjective Subjective Date of Service: 03/02/24 Interval History: about the same as yesterday Physical Exam Vital Signs: Vital Signs: Last Vital Signs Temp 98.4 F 03/02/24 11:10 Pulse 101 H 03/02/24 11:39 Resp 18 03/02/24 11:39 BP 150/67 H 03/02/24 11:10 Pulse Ox 95 03/02/24 11:10 O2 Del Method Nasal Cannula 03/02/24 11:10 O2 Flow Rate 3 03/02/24 11:10 Oxygen Flow Rate 3 02/28/24 09:45 BMI result Body Mass Index 28.7 GENERAL APPEARANCE: Short of breath. On supplemental oxygen. NECK: no carotid bruit, + jugular venous distention. SKIN: no suspicious lesions, warm and dry. HEART: no murmurs, regular rate and rhythm. LUNGS: Mild wheezes. ABDOMEN: soft, nontender. EXTREMITIES: no edema. PERIPHERAL PULSES: equal. NEUROLOGIC: No gross deficits, AAO X 3 Objective Data Active Medications Acetaminophen (Acetaminophen 325 Mg Tablet) 650 mg PO Q6H PRN PRN Reason: Pain, Mild (Pain Scale 1-3), fever or headache Last Admin: 02/29/24 23:03 Dose: 650 mg Documented By: LINDA Albuterol/Ipratropium (Albuterol/Iprat 2.5/0.5mg 3 Ml Ampul.Neb) 3 ml INHALE RQ4H WHILE AWAKE [facility] Last Admin: 03/02/24 11:37 Dose: 3 ml Documented By: CEZAR Alprazolam (Alprazolam 0.25 Mg Tablet) 0.25 mg PO TID PRN PRN Reason: Anxiety Last Admin: 03/01/24 19:34 Dose: 0.25 mg Documented By: ALLI Apixaban (Apixaban 5 Mg Tablet) 5 mg PO BID [facility] Last Admin: 03/02/24 09:37 Dose: 5 mg Documented By: CHAYA Atorvastatin Calcium (Atorvastatin Calcium 10 Mg Tablet) 10 mg PO DAILY [facility] Last Admin: 03/02/24 09:37 Dose: 10 mg Documented By: CHAYA Calcium Carbonate (Calcium Carbonate 750 Mg Tab.Chew) 750 mg PO Q4H PRN PRN Reason: Heartburn Diltiazem HCl (Diltiazem Hcl Cd 120 Mg Cap.Er.Deg) 120 mg PO DAILY [facility]; Protocol Last Admin: 03/02/24 09:37 Dose: 120 mg Documented By: CHAYA Doxycycline Monohydrate (Doxycycline Monohydrate 100 Mg Capsule) 100 mg PO BID [facility] Last Admin: 03/02/24 09:37 Dose: 100 mg Documented By: CHAYA Fentanyl (Fentanyl 100 Mcg Patch.Td72) 100 mcg TRANSDERMA Q3D@1200 [facility] Last Admin: 03/02/24 11:23 Dose: 100 mcg Documented By: CHAYA Fluticasone/Umeclidinium/Vilanterol (Fluticasone/Umeclidinium/Vilanterol 100/62.5/25 Blst.W.Dev) 1 puff INHALE RDAILY [facility] Last Admin: 03/02/24 07:51 Dose: 1 puff Documented By: PATRICIA Guaifenesin (Guaifenesin 200 Mg/10 Ml 10 Ml Liquid) 10 ml PO Q4H PRN PRN Reason: Cough Last Admin: 03/01/24 17:36 Dose: 10 ml Documented By: GREGORIO Ceftriaxone Sodium 1 gm/ (Sodium Chloride) 50 mls @ 100 mls/hr IV Q24H [facility] Last Infusion: 03/02/24 10:17 Dose: Infused Documented By: CHAYA Magnesium Hydroxide (Milk Of Magnesia 30 Ml Oral.Susp) 30 ml PO DAILY PRN PRN Reason: Constipation Multivitamins/Vitamin C (Multivitamin Tablet) 1 tab PO DAILY [facility] Last Admin: 03/02/24 09:37 Dose: 1 tab Documented By: CHAYA Non-Formulary Medication (Latanoprostene Bunod [Vyzulta]) 1 drop EYE-BOTH BEDTIME [facility] Oxycodone HCl (Oxycodone Hcl Immed Release 5 Mg Tablet) 5 mg PO Q4H PRN PRN Reason: moderate to severe pain Last Admin: 03/02/24 11:24 Dose: 5 mg Documented By: CHAYA Prednisone (Prednisone 20 Mg Tablet) 40 mg PO DAILY [facility] Last Admin: 03/02/24 09:37 Dose: 40 mg Documented By: CHAYA Pregabalin (Pregabalin 150 Mg Capsule) 150 mg PO DAILY [facility] Last Admin: 03/02/24 09:37 Dose: 150 mg Documented By: CHAYA Pyridoxine HCl (Pyridoxine Hcl (Vitamin B6) 50 Mg Tablet) 50 mg PO DAILY [facility] Last Admin: 03/02/24 09:37 Dose: 50 mg Documented By: CHAYA Tamsulosin HCl (Tamsulosin Hcl 0.4 Mg Capsule) 0.4 mg PO BEDTIME [facility] Last Admin: 03/01/24 21:14 Dose: 0.4 mg Documented By: ALLI Vitamin D (Cholecalciferol (Vitamin D3) 25 Mcg Tablet) 25 mcg PO DAILY [facility] Last Admin: 03/02/24 09:37 Dose: 25 mcg Documented By: CHAYA Labs 03/02/24 06:41 03/02/24 06:41 Labs: Laboratory Results - last 24 hr 03/02/24 06:41 MCV 108.8 H MCH 35.2 H MCHC 32.4 RDW 18.0 H Plt Count 154 L MPV 10.4 Absolute Nucleated RBC 0.000 Nucleated RBC % (auto) 0.0 Anion Gap 10 L Estim Creat Clear Calc 104.8 Estimated GFR > 60 Fasting Glucose 97 Calcium 8.3 L Microbiology Microbiology Results: Microbiology 02/28/24 10:06 Blood Culture - Preliminary Blood - Venous No growth after 48 hours. 02/28/24 10:06 Blood Culture - Preliminary Blood - Venous No growth after 48 hours. 02/29/24 10:00 Gram Stain - Final Sputum - Expectorated Sputum Culture - Final Assessment and Plan (1) Elevated troponin: Status: Acute Plan 78M PMH chronic hypoxic respiratory failure on 2-3 L home O2 due to COPD, BPH presents with shortness of breath Chronic hypoxic respiratory failure due to COPD complicated by acute decompensation due to pneumonia complicated by sepsis Continue ceftriaxone and doxycycline, prednisone, DuoNebs SVT vs pflutter cardio appreciated, cardizem decreased to 120 monitor Elevated troponin Likely demand ischemia, outpatient ischemic work up recommended acute on chronic unspecified macrocytic anemia monitor BPH Flomax Chronic back pain Continue fentanyl patch Hyperlipidemia Statin Paroxysmal atrial flutter Eliquis, Cardizem DVT prophylaxis on Eliquis Full code Reason for continued hospitalization: Still short of breath and very wheezy Quality Stroke Does the patient have a stroke diagnosis?: No VTE Prior VTE?: No VTE Risk Level:: Medical - moderate - high VTE Device Contraindication: Treatment Not Indicated VTE Drug Contraindication: N/A - Med Ordered
--- NOTE | 2024-03-02 12:42 | PM.PNCARD ---
Subjective Subjective Date of Service: 03/02/24 Interval history: Seen and examined at bedside. Still short of breath. Physical Exam Vital Signs: Last Vital Signs Temp 98.4 F 03/02/24 11:10 Pulse 101 H 03/02/24 11:39 Resp 18 03/02/24 11:39 BP 150/67 H 03/02/24 11:10 Pulse Ox 95 03/02/24 11:10 O2 Del Method Nasal Cannula 03/02/24 11:10 O2 Flow Rate 3 03/02/24 11:10 Oxygen Flow Rate 3 02/28/24 09:45 BMI result Body Mass Index 28.7 GENERAL APPEARANCE: Short of breath. On supplemental oxygen. NECK: no carotid bruit, no jugular venous distention. SKIN: no suspicious lesions, warm and dry. HEART: no murmurs, regular rate and rhythm. LUNGS: Mild wheezes. ABDOMEN: soft, nontender. EXTREMITIES: no edema. PERIPHERAL PULSES: equal. NEUROLOGIC: No gross deficits, AAO X 3 Objective Labs and Meds 03/02/24 06:41 03/02/24 06:41 Lab results: Laboratory Results - last 24 hr 03/02/24 06:41 WBC 5.8 RBC 2.27 L Hgb 8.0 L Hct 24.7 L MCV 108.8 H MCH 35.2 H MCHC 32.4 RDW 18.0 H Plt Count 154 L MPV 10.4 Absolute Nucleated RBC 0.000 Nucleated RBC % (auto) 0.0 Sodium 140 Potassium 3.9 Chloride 107 Carbon Dioxide 27 Anion Gap 10 L BUN 21 H Creatinine 0.72 Estim Creat Clear Calc 104.8 Estimated GFR > 60 Fasting Glucose 97 Calcium 8.3 L Progress Note: A&P Assessment and plan (1) Atrial flutter with rapid ventricular response: Status: Acute (2) NSTEMI (non-ST elevated myocardial infarction): Status: Acute (3) T wave inversion in EKG: Status: Acute Assessment and Plan: 78 year gentleman who presented with COPD exacerbation and then developed atrial flutter with elevated troponin levels of 355 and 307. Subsequently was noticed to have precordial T-wave inversions which have been persistently present. He has no chest discomfort. Shortness of breath is somewhat improving with treatment of COPD. He continues to have bilateral wheezes. He is also becoming anemic and his hemoglobin is 8. I am decreasing Cardizem to 120 mg daily. Would favor adding beta-pradeep in case he develops any arrhythmia and would avoid increasing Cardizem further. Cardizem more than 120 mg has been shown to cause more bleeding in elderly on NOACs. Repeat EKGs drip. Workup for anemia. Thank you for allowing me to participate in the care of your patient. Please feel free to contact me if you have any questions. Time Spent With Patient Time: Total time managing care of this patient today ____ minutes. Progress Note: Quality Stroke Does the patient have a stroke diagnosis?: No Procedures Date of Service Date of Service: 03/02/24
[2024-03-02] MEDS: Tamsulosin HCL 0.4 MG CAPSULE PO (19:50)
[2024-03-02] MEDS: Acetaminophen 325 MG TABLET 650 MG PO (19:50)
[2024-03-03] VITALS (12 sets, daily range): BP systolic 134–166; BP diastolic 60–77; PULSE 60–90; RESP 16–20; TEMP 36.5–36.9; O2SAT 93–97
[2024-03-03] MEDS: oxyCODONE HCl Immed Release 5 MG TABLET PO ×3 (05:19→20:58)
[2024-03-03 06:37] LABS: Hematocrit 25.9 % (42.0-52.0); Hemoglobin 8.3 g/dl (14.0-18.0); Mean Corpuscular Hemoglobin 34.4 pg (27.0-33.0); Mean Corpuscular Volume 107.5 fL (80.0-98.0); Mean Platelet Volume 10.3 fL (9.4-12.4); Platelet Count 168 X10*3/uL (160-400); Red Blood Count 2.41 X10*6/uL (4.60-5.80); Red Cell Distribution Width 17.5 % (11.0-16.0); White Blood Count 5.5 X10*3/uL (4.8-10.8)
[2024-03-03 06:54] LABS: Anion Gap 10 (12-20); Blood Urea Nitrogen 21 mg/dL (9-16); Calcium 8.7 mg/dL (8.4-10.2); Carbon Dioxide 32 mmol/L (22-29); Chloride 104 mmol/L (96-108); Creatinine Clr Calc Pharmacy 95.5; Estimated Glomerular Filt Rate > 60; Glucose Fasting 98 mg/dL (60-99); Potassium 4.1 mmol/L (3.3-5.1); Sodium 142 mmol/L (135-145)
[2024-03-03 08:54] LABS: Iron 53 mcg/dL (45-160); Percent Iron Saturation 21 % (15-50); Total Iron Binding Capacity 250 mcg/dL (228-428); Unsaturated Iron Binding 197 ug/dL
[2024-03-03] MEDS: Fluticasone/Umeclidinium/Vilanterol 100/62.5/25 BLST.W.DEV 1 PUFF INHALE (08:56)
[2024-03-03] MEDS: Albuterol/Iprat 2.5/0.5MG 3 ML AMPUL.NEB INHALE ×4 (08:56→18:51)
[2024-03-03] MEDS: Multivitamin TABLET 1 TAB PO (09:09)
[2024-03-03] MEDS: predniSONE 20 MG TABLET 40 MG PO (09:09)
[2024-03-03] MEDS: Pyridoxine HCl (Vitamin B6) 50 MG TABLET PO (09:10)
[2024-03-03] MEDS: Apixaban 5 MG TABLET PO ×2 (09:10→20:58)
[2024-03-03] MEDS: Doxycycline Monohydrate 100 MG CAPSULE PO ×2 (09:10→20:58)
[2024-03-03] MEDS: Atorvastatin Calcium 10 MG TABLET PO (09:10)
[2024-03-03] MEDS: Cholecalciferol (Vitamin D3) 25 MCG TABLET PO (09:10)
[2024-03-03] MEDS: dilTIAZem HCL CD 120 MG CAP.ER.DEG PO (09:11)
[2024-03-03] MEDS: Pregabalin 150 MG CAPSULE PO (09:11)
[2024-03-03] MEDS: cefTRIAXone sodium 1 GM in 0.9 % Sodium Chloride 50 ML IV (09:15)
--- NOTE | 2024-03-03 10:55 | MHC.CM.PN ---
Per ROUNDS discussion, Patient is not yet medically cleared for dc (SOB & wheezy); Patient may benefit from a PT Eval to assist with disposition. CM will follow.
--- NOTE | 2024-03-03 11:01 | PM.PNCARD ---
Subjective Subjective Date of Service: 03/03/24 Interval history: Seen examined at bedside. Continues to be quite short of breath and wheezy. Hemoglobin 8.3. Physical Exam Vital Signs: Last Vital Signs Temp 97.7 F 03/03/24 08:00 Pulse 80 03/03/24 08:56 Resp 20 03/03/24 08:56 BP 151/77 H 03/03/24 08:00 Pulse Ox 96 03/03/24 08:00 O2 Del Method Nasal Cannula 03/03/24 08:00 O2 Flow Rate 2 03/03/24 08:00 Oxygen Flow Rate 3 02/28/24 09:45 BMI result Body Mass Index 28.7 GENERAL APPEARANCE: Short of breath. On supplemental oxygen. NECK: no carotid bruit, no obvious jugular venous distention. SKIN: no suspicious lesions, warm and dry. HEART: no murmurs, regular rate and rhythm. LUNGS: Bilateral expiratory wheezes. ABDOMEN: soft, nontender. EXTREMITIES: no edema. PERIPHERAL PULSES: equal. NEUROLOGIC: No gross deficits, AAO X 3 Objective Labs and Meds 03/03/24 06:01 03/03/24 05:54 Lab results: Laboratory Results - last 24 hr 03/03/24 03/03/24 05:54 06:01 WBC 5.5 RBC 2.41 L Hgb 8.3 L Hct 25.9 L MCV 107.5 H MCH 34.4 H MCHC 32.0 RDW 17.5 H Plt Count 168 MPV 10.3 Absolute Nucleated RBC 0.000 Nucleated RBC % (auto) 0.0 Sodium 142 Potassium 4.1 Chloride 104 Carbon Dioxide 32 H Anion Gap 10 L BUN 21 H Creatinine 0.79 Estim Creat Clear Calc 95.5 Estimated GFR > 60 Fasting Glucose 98 Calcium 8.7 Iron 53 TIBC 250 % Saturation 21 Unsat Iron Binding 197 Progress Note: A&P Assessment and plan (1) T wave inversion in EKG: Status: Acute (2) Atrial flutter with rapid ventricular response: Status: Acute (3) NSTEMI (non-ST elevated myocardial infarction): Status: Acute Plan [age] gentleman presenting for COPD exacerbation. He had paroxysmal atrial flutter with T-wave inversions in the precordial leads. Echocardiography has shown normal LV function. No wall motion abnormalities noted. No chest discomfort at any stage. Continues to have respiratory issues at this point he also is anemic. Repeat chest x-ray to see if he has any congestive heart failure or worsening pneumonia. Consider Lasix after that. Also would consider giving him some blood. Further workup or EKG changes would be outpatient once he is more stable with stress testing. Thank you for allowing me to participate in the care of your patient. Please feel free to contact me if you have any questions. Time Spent With Patient Time: Total time managing care of this patient today ____ minutes. Progress Note: Quality Stroke Does the patient have a stroke diagnosis?: No Procedures Date of Service Date of Service: 03/03/24
--- NOTE | 2024-03-03 11:23 | HO.PM.IMPN ---
Subjective Subjective Date of Service: 03/03/24 Interval History: Seen and evaluated this morning still reporting dyspnea and feeling SOB no chest pain Hb lower but remains above 8 Review of Systems Review of Systems: Yes all other systems are reviewed and are negative Physical Exam Vital Signs: Vital Signs: Last Vital Signs Temp 97.7 F 03/03/24 08:00 Pulse 80 03/03/24 08:56 Resp 20 03/03/24 08:56 BP 151/77 H 03/03/24 08:00 Pulse Ox 96 03/03/24 08:00 O2 Del Method Nasal Cannula 03/03/24 08:00 O2 Flow Rate 2 03/03/24 08:00 Oxygen Flow Rate 3 02/28/24 09:45 BMI result Body Mass Index 28.7 Const: Other: Constitutional : Awake, interactive, in mild respiratory distress Neck : Normal inspection, Supple Cardiovascular : RRR, no JVP, trace lower extremity edema Respiratory : decreased bilateral air entry, basal fine crackles, exp[iratory bilateral wheezes and rhonchi, on O2 supplement Gastrointestinal: soft, lax, Normal bowel sounds, Non tender Skin : Warm, Dry Neurological : Alert & oriented x3, No focal deficit Objective Data Active Medications Acetaminophen (Acetaminophen 325 Mg Tablet) 650 mg PO Q6H PRN PRN Reason: Pain, Mild (Pain Scale 1-3), fever or headache Last Admin: 03/02/24 19:50 Dose: 650 mg Documented By: KAT Albuterol/Ipratropium (Albuterol/Iprat 2.5/0.5mg 3 Ml Ampul.Neb) 3 ml INHALE RQ4H WHILE AWAKE [facility] Last Admin: 03/03/24 08:56 Dose: 3 ml Documented By: JUANI Alprazolam (Alprazolam 0.25 Mg Tablet) 0.25 mg PO TID PRN PRN Reason: Anxiety Last Admin: 03/01/24 19:34 Dose: 0.25 mg Documented By: ALLI Apixaban (Apixaban 5 Mg Tablet) 5 mg PO BID [facility] Last Admin: 03/03/24 09:10 Dose: 5 mg Documented By: CHAYA Atorvastatin Calcium (Atorvastatin Calcium 10 Mg Tablet) 10 mg PO DAILY [facility] Last Admin: 03/03/24 09:10 Dose: 10 mg Documented By: CHAYA Calcium Carbonate (Calcium Carbonate 750 Mg Tab.Chew) 750 mg PO Q4H PRN PRN Reason: Heartburn Diltiazem HCl (Diltiazem Hcl Cd 120 Mg Cap.Er.Deg) 120 mg PO DAILY [facility]; Protocol Last Admin: 03/03/24 09:11 Dose: 120 mg Documented By: CHAYA Doxycycline Monohydrate (Doxycycline Monohydrate 100 Mg Capsule) 100 mg PO BID [facility] Last Admin: 03/03/24 09:10 Dose: 100 mg Documented By: CHAYA Fentanyl (Fentanyl 100 Mcg Patch.Td72) 100 mcg TRANSDERMA Q3D@1200 [facility] Last Admin: 03/02/24 11:23 Dose: 100 mcg Documented By: CHAYA Fluticasone/Umeclidinium/Vilanterol (Fluticasone/Umeclidinium/Vilanterol 100/62.5/25 Blst.W.Dev) 1 puff INHALE RDAILY [facility] Last Admin: 03/03/24 08:56 Dose: 1 puff Documented By: JUANI Guaifenesin (Guaifenesin 200 Mg/10 Ml 10 Ml Liquid) 10 ml PO Q4H PRN PRN Reason: Cough Last Admin: 03/01/24 17:36 Dose: 10 ml Documented By: GREGORIO Guaifenesin (Guaifenesin La 600 Mg Tab.Er.12h) 600 mg PO BID [facility] Ceftriaxone Sodium 1 gm/ (Sodium Chloride) 50 mls @ 100 mls/hr IV Q24H [facility] Last Infusion: 03/03/24 11:18 Dose: Infused Documented By: CHAYA Magnesium Hydroxide (Milk Of Magnesia 30 Ml Oral.Susp) 30 ml PO DAILY PRN PRN Reason: Constipation Multivitamins/Vitamin C (Multivitamin Tablet) 1 tab PO DAILY [facility] Last Admin: 03/03/24 09:09 Dose: 1 tab Documented By: CHAYA Non-Formulary Medication (Latanoprostene Bunod [Vyzulta]) 1 drop EYE-BOTH BEDTIME [facility] Oxycodone HCl (Oxycodone Hcl Immed Release 5 Mg Tablet) 5 mg PO Q4H PRN PRN Reason: moderate to severe pain Last Admin: 03/03/24 05:19 Dose: 5 mg Documented By: ANTOIC Prednisone (Prednisone 20 Mg Tablet) 40 mg PO DAILY [facility] Last Admin: 03/03/24 09:09 Dose: 40 mg Documented By: CHAYA Pregabalin (Pregabalin 150 Mg Capsule) 150 mg PO DAILY [facility] Last Admin: 03/03/24 09:11 Dose: 150 mg Documented By: CHAYA Pyridoxine HCl (Pyridoxine Hcl (Vitamin B6) 50 Mg Tablet) 50 mg PO DAILY [facility] Last Admin: 03/03/24 09:10 Dose: 50 mg Documented By: CHAYA Tamsulosin HCl (Tamsulosin Hcl 0.4 Mg Capsule) 0.4 mg PO BEDTIME [facility] Last Admin: 03/02/24 19:50 Dose: 0.4 mg Documented By: KAT Vitamin D (Cholecalciferol (Vitamin D3) 25 Mcg Tablet) 25 mcg PO DAILY [facility] Last Admin: 03/03/24 09:10 Dose: 25 mcg Documented By: CHAYA Labs 03/03/24 06:01 03/03/24 05:54 Labs: Laboratory Results - last 24 hr 03/03/24 03/03/24 05:54 06:01 MCV 107.5 H MCH 34.4 H MCHC 32.0 RDW 17.5 H Plt Count 168 MPV 10.3 Absolute Nucleated RBC 0.000 Nucleated RBC % (auto) 0.0 Anion Gap 10 L Estim Creat Clear Calc 95.5 Estimated GFR > 60 Fasting Glucose 98 Calcium 8.7 Iron 53 TIBC 250 % Saturation 21 Unsat Iron Binding 197 Assessment and Plan (1) Atrial flutter with rapid ventricular response: Status: Acute (2) Pneumonia: Status: Acute (3) COPD exacerbation: Status: Acute (4) Acute on chronic respiratory failure with hypoxemia: Status: Acute Plan 78M PMH chronic hypoxic respiratory failure on 2-3 L home O2 due to COPD, BPH presents with shortness of breath acute on Chronic hypoxic respiratory failure due to acute COPD and pneumonia complicated by sepsis repeat CXR Continue ceftriaxone and doxycycline continue prednisone DuoNebs ATC Albuterol PRN Wean O2 down as tolerated Paroxysmal A.Flutter Echo w normal EF cardio appreciated, cardizem decreased to 120 Give Lasix monitor Elevated troponin Likely demand ischemia, outpatient ischemic work up recommended w cardiology acute on chronic unspecified macrocytic anemia Dropping to almost 8 normal Iron profile check Folate and B12 BPH Flomax Chronic back pain Continue fentanyl patch Hyperlipidemia Statin Paroxysmal atrial flutter Jayson Carlos DVT prophylaxis on Eliquis Full code Reason for continued hospitalization: Still short of breath and very wheezy Quality Stroke Does the patient have a stroke diagnosis?: No VTE Prior VTE?: No VTE Risk Level:: Medical - moderate - high VTE Device Contraindication: Treatment Not Indicated VTE Drug Contraindication: N/A - Med Ordered
[2024-03-03] MEDS: guaiFENesin LA 600 MG TAB.ER.12H PO ×2 (11:30→20:58)
[2024-03-03] MEDS: Furosemide 40 MG/4 ML VIAL IVPUSH (11:30)
[2024-03-03 14:29] LABS: Strep Pneumo Ag urine Not Detected (Not Detected)
[2024-03-03 14:40] LABS: Folate 13.7 ng/mL (> or = 4.0); Vitamin B12 > 2000 pg/mL (200-900)
[2024-03-03] MEDS: ALPRAZolam 0.25 MG TABLET PO (20:57)
[2024-03-03] MEDS: Tamsulosin HCL 0.4 MG CAPSULE PO (20:58)
[2024-03-04] VITALS (10 sets, daily range): BP systolic 109–128; BP diastolic 56–74; PULSE 68–91; RESP 14–20; TEMP 36.3–37.7; O2SAT 91–98
[2024-03-04] MEDS: Calcium Carbonate 750 MG TAB.CHEW PO (05:09)
--- NOTE | 2024-03-04 06:45 | PM.EVENT ---
Event Note Date of Service: 03/04/24 Event Note: 6:24 AM -contacted to notify that patient has developed a pruritic rash to anterior aspect of his right wrist (see pic below). Patient wrist band is not currently on his right wrist but, it was yesterday. I am suspecting this is contact dermatitis secondary to the wrist band. We will order hydrocortisone ointment to apply to the affected area b.i.d. Time Spent With Patient Time: Total time managing care of this patient today ____ minutes.
[2024-03-04 07:12] LABS: Blood Urea Nitrogen 25 mg/dL (9-16); Calcium 9.4 mg/dL (8.4-10.2); Creatinine Clr Calc Pharmacy 89.8; Estimated Glomerular Filt Rate > 60; Glucose Random 94 mg/dL (60-115)
[2024-03-04 07:13] LABS: Hematocrit 28.6 % (42.0-52.0); Hemoglobin 9.4 g/dl (14.0-18.0); Mean Corpuscular HGB Conc 32.9 g/dl (31.0-36.0); Mean Corpuscular Hemoglobin 35.1 pg (27.0-33.0); Mean Corpuscular Volume 106.7 fL (80.0-98.0); Mean Platelet Volume 10.4 fL (9.4-12.4); NRBC Pct Auto 0.3 /100WBC (0.0-0.2); Platelet Count 210 X10*3/uL (160-400); Red Blood Count 2.68 X10*6/uL (4.60-5.80); Red Cell Distribution Width 17.9 % (11.0-16.0); White Blood Count 6.5 X10*3/uL (4.8-10.8)
[2024-03-04 07:27] LABS: Anion Gap 14 (12-20); Carbon Dioxide 31 mmol/L (22-29); Chloride 100 mmol/L (96-108); Potassium 3.8 mmol/L (3.3-5.1); Sodium 141 mmol/L (135-145)
[2024-03-04] MEDS: Albuterol/Iprat 2.5/0.5MG 3 ML AMPUL.NEB INHALE ×4 (07:52→20:33)
[2024-03-04] MEDS: Fluticasone/Umeclidinium/Vilanterol 100/62.5/25 BLST.W.DEV 1 PUFF INHALE (07:52)
[2024-03-04] MEDS: Cholecalciferol (Vitamin D3) 25 MCG TABLET PO (08:46)
[2024-03-04] MEDS: Hydrocortisone 1 % Ointment 28.35 GM TUBE 1 APPL TOPICAL ×2 (08:46→21:04)
[2024-03-04] MEDS: Pyridoxine HCl (Vitamin B6) 50 MG TABLET PO (08:46)
[2024-03-04] MEDS: Multivitamin TABLET 1 TAB PO (08:46)
[2024-03-04] MEDS: Doxycycline Monohydrate 100 MG CAPSULE PO ×2 (08:46→21:04)
[2024-03-04] MEDS: oxyCODONE HCl Immed Release 5 MG TABLET PO ×3 (08:46→17:34)
[2024-03-04] MEDS: predniSONE 20 MG TABLET 40 MG PO (08:46)
[2024-03-04] MEDS: Pregabalin 150 MG CAPSULE PO (08:46)
[2024-03-04] MEDS: dilTIAZem HCL CD 120 MG CAP.ER.DEG PO (08:46)
[2024-03-04] MEDS: Apixaban 5 MG TABLET PO ×2 (08:46→21:04)
[2024-03-04] MEDS: Atorvastatin Calcium 10 MG TABLET PO (08:47)
[2024-03-04] MEDS: guaiFENesin LA 600 MG TAB.ER.12H PO ×2 (08:47→21:04)
[2024-03-04] MEDS: cefTRIAXone sodium 1 GM in 0.9 % Sodium Chloride 50 ML IV (08:47)
--- NOTE | 2024-03-04 12:45 | HO.PM.IMPN ---
Subjective Subjective Date of Service: 03/04/24 Interval History: Seen and evaluated this morning still reporting dyspnea and feeling SOB no chest pain Hb improved to 9.4 Review of Systems Review of Systems: Yes all other systems are reviewed and are negative Physical Exam Vital Signs: Vital Signs: Last Vital Signs Temp 98.2 F 03/04/24 12:00 Pulse 91 03/04/24 12:00 Resp 20 03/04/24 12:00 BP 124/60 03/04/24 12:00 Pulse Ox 93 03/04/24 12:00 O2 Del Method Nasal Cannula 03/04/24 12:00 O2 Flow Rate 2 03/04/24 12:00 Oxygen Flow Rate 3 02/28/24 09:45 BMI result Body Mass Index 28.7 Const: Other: Constitutional : Awake, interactive, in mild respiratory distress Neck : Normal inspection, Supple Cardiovascular : RRR, no JVP, trace lower extremity edema Respiratory : decreased bilateral air entry, basal fine crackles, less expiratory bilateral wheezes, on O2 supplement Gastrointestinal: soft, lax, Normal bowel sounds, Non tender Skin : Warm, Dry Neurological : Alert & oriented x3, No focal deficit Objective Data Active Medications Acetaminophen (Acetaminophen 325 Mg Tablet) 650 mg PO Q6H PRN PRN Reason: Pain, Mild (Pain Scale 1-3), fever or headache Last Admin: 03/02/24 19:50 Dose: 650 mg Documented By: KAT Albuterol Sulfate (Albuterol Sulfate (0.083%) 2.5 Mg/3 Ml Vial.Neb) 2.5 mg INHALE Q4H PRN PRN Reason: Wheezing Albuterol/Ipratropium (Albuterol/Iprat 2.5/0.5mg 3 Ml Ampul.Neb) 3 ml INHALE RQ4H WHILE AWAKE [facility] Last Admin: 03/04/24 11:33 Dose: 3 ml Documented By: DIANA Alprazolam (Alprazolam 0.25 Mg Tablet) 0.25 mg PO TID PRN PRN Reason: Anxiety Last Admin: 03/03/24 20:57 Dose: 0.25 mg Documented By: BRONWYN Apixaban (Apixaban 5 Mg Tablet) 5 mg PO BID [facility] Last Admin: 03/04/24 08:46 Dose: 5 mg Documented By: ARTURO Atorvastatin Calcium (Atorvastatin Calcium 10 Mg Tablet) 10 mg PO DAILY [facility] Last Admin: 03/04/24 08:47 Dose: 10 mg Documented By: ARTURO Calcium Carbonate (Calcium Carbonate 750 Mg Tab.Chew) 750 mg PO Q4H PRN PRN Reason: Heartburn Last Admin: 03/04/24 05:09 Dose: 750 mg Documented By: BRONWYN Diltiazem HCl (Diltiazem Hcl Cd 120 Mg Cap.Er.Deg) 120 mg PO DAILY [facility]; Protocol Last Admin: 03/04/24 08:46 Dose: 120 mg Documented By: ARTURO Doxycycline Monohydrate (Doxycycline Monohydrate 100 Mg Capsule) 100 mg PO BID [facility] Last Admin: 03/04/24 08:46 Dose: 100 mg Documented By: ARTURO Fentanyl (Fentanyl 100 Mcg Patch.Td72) 100 mcg TRANSDERMA Q3D@1200 [facility] Last Admin: 03/02/24 11:23 Dose: 100 mcg Documented By: CHAYA Fluticasone/Umeclidinium/Vilanterol (Fluticasone/Umeclidinium/Vilanterol 100/62.5/25 Blst.W.Dev) 1 puff INHALE RDAILY [facility] Last Admin: 03/04/24 07:52 Dose: 1 puff Documented By: ROMMEL Guaifenesin (Guaifenesin 200 Mg/10 Ml 10 Ml Liquid) 10 ml PO Q4H PRN PRN Reason: Cough Last Admin: 03/01/24 17:36 Dose: 10 ml Documented By: GREGORIO Guaifenesin (Guaifenesin La 600 Mg Tab.Er.12h) 600 mg PO BID [facility] Last Admin: 03/04/24 08:47 Dose: 600 mg Documented By: ARTURO Hydrocortisone (Hydrocortisone 1 % Ointment 28.35 Gm Tube) 1 appl TOPICAL BID [facility]; Protocol Last Admin: 03/04/24 08:46 Dose: 1 appl Documented By: ARTURO Ceftriaxone Sodium 1 gm/ (Sodium Chloride) 50 mls @ 100 mls/hr IV Q24H [facility] Last Infusion: 03/04/24 09:25 Dose: Infused Documented By: ARTURO Magnesium Hydroxide (Milk Of Magnesia 30 Ml Oral.Susp) 30 ml PO DAILY PRN PRN Reason: Constipation Multivitamins/Vitamin C (Multivitamin Tablet) 1 tab PO DAILY [facility] Last Admin: 03/04/24 08:46 Dose: 1 tab Documented By: ARTURO Oxycodone HCl (Oxycodone Hcl Immed Release 5 Mg Tablet) 5 mg PO Q4H PRN PRN Reason: moderate to severe pain Last Admin: 03/04/24 12:44 Dose: 5 mg Documented By: ARTURO Prednisone (Prednisone 20 Mg Tablet) 40 mg PO DAILY [facility] Last Admin: 03/04/24 08:46 Dose: 40 mg Documented By: ARTURO Pregabalin (Pregabalin 150 Mg Capsule) 150 mg PO DAILY [facility] Last Admin: 03/04/24 08:46 Dose: 150 mg Documented By: ARTURO Pyridoxine HCl (Pyridoxine Hcl (Vitamin B6) 50 Mg Tablet) 50 mg PO DAILY [facility] Last Admin: 03/04/24 08:46 Dose: 50 mg Documented By: ARTURO Tamsulosin HCl (Tamsulosin Hcl 0.4 Mg Capsule) 0.4 mg PO BEDTIME [facility] Last Admin: 03/03/24 20:58 Dose: 0.4 mg Documented By: BRONWYN Vitamin D (Cholecalciferol (Vitamin D3) 25 Mcg Tablet) 25 mcg PO DAILY [facility] Last Admin: 03/04/24 08:46 Dose: 25 mcg Documented By: ARTURO Labs 03/04/24 06:29 03/04/24 06:29 Labs: Laboratory Results - last 24 hr 02/28/24 03/03/24 03/04/24 15:34 13:00 06:29 MCV 106.7 H MCH 35.1 H MCHC 32.9 RDW 17.9 H Plt Count 210 MPV 10.4 Absolute Nucleated RBC 0.020 H Nucleated RBC % (auto) 0.3 H Anion Gap 14 Estim Creat Clear Calc 89.8 Estimated GFR > 60 Random Glucose 94 Calcium 9.4 D Vitamin B12 > 2000 H Folate 13.7 Ur Strep pneumoniae Ag Not Detected Microbiology Microbiology Results: Microbiology 02/28/24 10:06 Blood Culture - Final Blood - Venous No growth after 5 days. 02/28/24 10:06 Blood Culture - Final Blood - Venous No growth after 5 days. Assessment and Plan (1) Acute on chronic respiratory failure with hypoxemia: Status: Acute (2) Atrial flutter with rapid ventricular response: Status: Acute (3) COPD exacerbation: Status: Acute (4) Pneumonia: Status: Acute Plan 78M PMH chronic hypoxic respiratory failure on 2-3 L home O2 due to COPD, BPH presents with shortness of breath acute on Chronic hypoxic respiratory failure due to acute COPD and pneumonia complicated by sepsis and fluid overload repeat CXR showing no significant changes Continue ceftriaxone and doxycycline continue prednisone IV lasix DuoNebs ATC Albuterol PRN Wean O2 down as tolerated Paroxysmal A.Flutter Echo w normal EF cardio appreciated, cardizem decreased to 120 Give Lasix monitor Elevated troponin Likely demand ischemia, outpatient ischemic work up recommended w cardiology acute on chronic unspecified macrocytic anemia Dropping to almost 8 normal Iron profile normal Folate and B12 BPH Flomax Chronic back pain Continue fentanyl patch Hyperlipidemia Statin Paroxysmal atrial flutter Eliquis, Cardizem DVT prophylaxis on Eliquis Full code Reason for continued hospitalization: Still short of breath and very wheezy Quality Stroke Does the patient have a stroke diagnosis?: No VTE Prior VTE?: No VTE Risk Level:: Medical - moderate - high VTE Device Contraindication: Treatment Not Indicated VTE Drug Contraindication: N/A - Med Ordered
[2024-03-04] MEDS: ALPRAZolam 0.25 MG TABLET PO (21:04)
[2024-03-04] MEDS: Acetaminophen 325 MG TABLET 650 MG PO (21:04)
[2024-03-04] MEDS: Tamsulosin HCL 0.4 MG CAPSULE PO (21:04)
[2024-03-05] VITALS (7 sets, daily range): BP systolic 116–126; BP diastolic 58–63; PULSE 64–97; RESP 16–20; TEMP 36.4–36.8; O2SAT 93–99
[2024-03-05] MEDS: Fluticasone/Umeclidinium/Vilanterol 100/62.5/25 BLST.W.DEV 1 PUFF INHALE (07:44)
[2024-03-05] MEDS: Albuterol/Iprat 2.5/0.5MG 3 ML AMPUL.NEB INHALE ×2 (07:44→11:08)
[2024-03-05] MEDS: Atorvastatin Calcium 10 MG TABLET PO (08:02)
[2024-03-05] MEDS: Pregabalin 150 MG CAPSULE PO (08:02)
[2024-03-05] MEDS: Multivitamin TABLET 1 TAB PO (08:02)
[2024-03-05] MEDS: guaiFENesin LA 600 MG TAB.ER.12H PO (08:02)
[2024-03-05] MEDS: oxyCODONE HCl Immed Release 5 MG TABLET PO (08:02)
[2024-03-05] MEDS: Doxycycline Monohydrate 100 MG CAPSULE PO (08:02)
[2024-03-05] MEDS: Apixaban 5 MG TABLET PO (08:02)
[2024-03-05] MEDS: Cholecalciferol (Vitamin D3) 25 MCG TABLET PO (08:02)
[2024-03-05] MEDS: Pyridoxine HCl (Vitamin B6) 50 MG TABLET PO (08:02)
[2024-03-05] MEDS: predniSONE 20 MG TABLET 40 MG PO (08:02)
[2024-03-05] MEDS: dilTIAZem HCL CD 120 MG CAP.ER.DEG PO (08:03)
[2024-03-05] MEDS: Hydrocortisone 1 % Ointment 28.35 GM TUBE 1 APPL TOPICAL (08:05)
--- NOTE | 2024-03-05 09:12 | MHC.CM.PN ---
Per MD, Patient is medically cleared for dc to home today with services. A referral was made to [facility], who has been made aware of today's dc. CM met with Patient at bedside and addressed IMM with him, providing him with the original and a copy has been placed on the chart. Patient's Friend/HCP/Barber will transport to home.
[2024-03-05] MEDS: cefTRIAXone sodium 1 GM in 0.9 % Sodium Chloride 50 ML IV (10:19)
--- NOTE | 2024-03-05 10:37 | P.PNCA_ITS ---
Subjective Subjective Date of Service: 03/05/24 Interval history: Feeling better with diuretics. Physical Exam Vital Signs: Last Vital Signs Temp 97.8 F 03/05/24 08:00 Pulse 70 03/05/24 08:00 Resp 20 03/05/24 08:00 BP 120/60 03/05/24 08:03 Pulse Ox 99 03/05/24 08:00 O2 Del Method Nasal Cannula 03/05/24 04:00 O2 Flow Rate 2 03/05/24 04:00 Oxygen Flow Rate 3 02/28/24 09:45 BMI result Body Mass Index 28.7 GENERAL APPEARANCE: On supplemental oxygen. NECK: no carotid bruit, no obvious jugular venous distention. SKIN: no suspicious lesions, warm and dry. HEART: no murmurs, regular rate and rhythm. LUNGS: CTAABL. ABDOMEN: soft, nontender. EXTREMITIES: no edema. PERIPHERAL PULSES: equal. NEUROLOGIC: No gross deficits, AAO X 3 Objective Labs and Meds 03/04/24 06:29 03/04/24 06:29 Progress Note: A&P Assessment and plan (1) Acute on chronic respiratory failure with hypoxemia: Status: Acute (2) T wave inversion in EKG: Status: Acute (3) Atrial flutter with rapid ventricular response: Status: Acute Plan 78 male with episode of atrial flutter, precordial T wave inversions and COPD exacerbation. Dyspnea did not improve with COPD treatment and he received some Lasix which made significant difference in dyspnea. start PO 40 mg Lasix daily. d/w him about potential transfer to [facility] to do angio vs outpatient stress test. He wishes to go home. He has been stable and we will arrange f/u and stress test. Time Spent With Patient Time: Total time managing care of this patient today ____ minutes. Progress Note: Quality Stroke Does the patient have a stroke diagnosis?: No Procedures Date of Service Date of Service: 03/05/24
[2024-03-05] MEDS: fentaNYL 100 MCG PATCH.TD72 TRANSDERMA (12:01)
--- NOTE | 2024-03-05 12:28 | P.DS_ITS ---
DS: Providers Provider Date of Service: 03/05/24 Date of admission: 02/28/24 14:41 Primary care physician: Unknown Physician Consults: 02/28/24 14:52 Consult to Cardiology Routine Consulting Provider: [facility] Reason for consultation: svt, abn ekg, elevated trops DS: Diagnosis Discharge Diagnosis (1) Acute on chronic respiratory failure with hypoxemia: Status: Acute (2) T wave inversion in EKG: Status: Acute (3) Atrial flutter with rapid ventricular response: Status: Acute (4) Elevated troponin: Status: Acute (5) Pneumonia: Status: Acute (6) COPD exacerbation: Status: Acute DS: Summary Hospital Course Hospital Course: Admission note HPI 78-year-old male with a PMH significant for?COPD on 2-3L home O2 prn, HLD, BPH, chronic lower back pain, and arthritis who presents to the ED for evaluation of SOB, difficulty breathing, productive cough, and generalized weakness x3-4 days. He reports dyspnea is primarily with exertion but also occurs at rest. He is felt sweats and chills but has not taken his temperature. Denies any known sick contacts or recent travel. No sore throat, nasal congestion, abdominal pain, nausea, vomiting, diarrhea, lightheadedness, palpitations, or chest pains. He denies any recent increase in albuterol usage. On arrival, patient febrile to 100.7 and tachycardic to 148. Noted to be in SVT and received adenosine x3 now in sinus tachycardia with rate in the low 100s and was initially hypotensive to 83/55 improved to 134/72 following conversion to sinus tachycardia and with IV fluids. He was also tachypneic and is hypoxic to the high 70s with minimal exertion. There is no leukocytosis or significant anemia. Has a chronic macrocytic anemia with H/H 11.2/33 0.3%. Renal function and electrolyte levels are normal. Lactic acid 1.6. Initial troponin 355, repeat 307. BNP 600. Urinalysis unremarkable. Negative for COVID-19, RSV, influenza. Chest x-ray shows patchy bibasilar airspace opacities new from prior suspicious for infection or aspiration. Initial EKG shows SVT, rate 148 with T-wave inversions noted in anterior leads. Subsequent EKG confirmed conversion to sinus tachycardia with PACs, rate 108 with T-wave inversions noted in anterior leads. In the ED, has received adenosine x3 as previously noted, ASA 324 mg, IV magnesium, p.o. metoprolol, ceftriaxone, doxycycline, albuterol, methylprednis olone. Hospital course - Acute on Chronic hypoxic respiratory failure due to acute COPD and pneumonia complicated by sepsis and fluid overload as shown on CXR on admission. repeated CXR showing no significant changes as he was treated with IV ceftriaxone and doxycycline along with IV steroids then po prednisone, Duonebs, IV lasix was also added for fluid overload with good response as he was weaned down on O2 to 2L his baseline with no reported dyspnea on exertion. - Paroxysmal A.Flutter with rapid ventricular response. controlled with IV and PO medications with normal Echo w normal EF as cardiology evaluated the patient and recommended cardizem decreased to 120 with good control of heart rate. - Elevated troponin Likely demand ischemia, outpatient ischemic work up recommended w cardiology for stress testing. - acute on chronic unspecified macrocytic anemia Hemoglobin dropped close to 8 but improved to 9.4 after diuresis. normal Iron profile.normal Folate and B12. to be followed as outpatient. Discharge plan Finish 5 more days of antibiotics Continue Prednisone 40 mg for 3 more days Use your home nebulizer 4 times daily for the next 3 days then as needed Wean down O2 as tolerated Decrease Cardizem to 120 mg daily To follow with cardiology as outpatient for stress testing and further work up Monitor your weight at home, report any changes to PCP\lymphedema therapist Time Attestation Discharge Coordination Time (in mins): 42 Quality: Safe Use of Opioids Does Pt have an Active Cancer Diagnosis on the Problem List?: No Quality: Stroke Does the patient have a stroke diagnosis?: No Physical Exam Vital Signs: Vital Signs: Last Vital Signs Temp 97.8 F 03/05/24 08:00 Pulse 79 03/05/24 11:10 Resp 18 03/05/24 11:10 BP 120/60 03/05/24 08:03 Pulse Ox 99 03/05/24 08:00 O2 Del Method Nasal Cannula 03/05/24 04:00 O2 Flow Rate 2 03/05/24 04:00 Oxygen Flow Rate 3 02/28/24 09:45 BMI result Body Mass Index 28.7 Const: Other: Constitutional : Awake, interactive, not in distress Neck : Normal inspection, Supple Cardiovascular : RRR, no JVP, trace lower extremity edema Respiratory : fair bilateral air entry, no crackles, scattered expiratory wheezes, on O2 supplement Gastrointestinal: soft, lax, Normal bowel sounds, Non tender Skin : Warm, Dry Neurological : Alert & oriented x3, No focal deficit DS: Data Imaging Chest x-ray: Radiologist's impression: ITS Impressions Chest X-Ray 02/28/24 10:09 IMPRESSION: Patchy bibasilar airspace opacities new from prior suspicious for infection or aspiration, recommend follow-up radiographs to ensure resolution. Chest X-Ray 03/03/24 11:10 IMPRESSION: Stable infiltrates. This could reflect pneumonia. Recommend short-term follow-up PA lateral. Discharge Plan Discharge Anticipated Discharge Date/Time: 03/05/24 12:19 Patient Disposition: Home Health Service Discharge Diagnosis: heart failure exacerbation Pneumonia , COPD exacerbation Referrals: Lulu DOVER [Outside] - 1 Week Physician,Unknown J [Primary Care Provider] - 1 Week Discharge Medications: New prednisone 20 mg Tablet 40 mg PO DAILY Qty: 6 0RF doxycycline monohydrate 100 mg Capsule 100 mg PO BID Qty: 10 0RF diltiazem HCl [Cardizem CD] 120 mg Capsule,Extended Release 24hr 120 mg PO DAILY Qty: 90 0RF Protocol: Hold for SBP/HR < HOLD for SBP < : 90 HOLD for HR < : 60 guaifenesin [Mucinex] 600 mg Tablet Extended Release 12hr 600 mg PO BID Qty: 14 0RF cefuroxime axetil 500 mg tablet 500 mg PO BID Qty: 10 0RF Continued Trelegy Ellipta 100-62.5-25 mcg blister with device 1 ea inhalation DAILY Qty: 180 2RF tamsulosin 0.4 mg capsule 0.4 mg PO BEDTIME albuterol sulfate 90 mcg/actuation HFA aerosol inhaler 2 puff INHALATION Q4H PRN (Reason: Shortness Of Breath Or Wheezing) multivitamin Tablet 1 tab PO DAILY cholecalciferol (vitamin D3) 25 mcg (1,000 unit) Tablet 25 mcg PO DAILY ipratropium-albuterol 0.5 mg-3 mg(2.5 mg base)/3 mL solution for nebulization 1 ml inhalation QID PRN (Reason: dyspnea) triamcinolone acetonide 0.1 % cream 1 appl topical DAILY PRN (Reason: Rash) pregabalin 75 mg capsule 150 mg PO DAILY Vyzulta 0.024 % drops 1 drp ophthalmic (eye) BEDTIME Rx Instructions: both eyes Vitamin B-6 50 mg Capsule 50 mg PO DAILY Eliquis 5 mg Tablet 5 mg PO BID Qty: 60 0RF atorvastatin 10 mg tablet 10 mg PO DAILY fentanyl 100 mcg/hr patch 72 hour 1 patch topical Q3D@1800 Held prednisone 10 mg tablet 10 mg PO DAILY Hold Instructions: restart after finishing the 40 mg Prednisone dose. Rx Instructions: see taper instructions Discontinued diltiazem HCl 240 mg Capsule,Extended Release 24hr 240 mg PO DAILY Qty: 90 0RF Protocol: Hold for SBP/HR < HOLD for SBP < : 90 HOLD for HR < : 60 Discharge Orders: Discharge Order (Routine); Ordered 03/05/24 Ordered By: Allison Cisneros Diet: Low salt diet Activity on Discharge: As tolerated Stand Alone Forms: Patient Portal Discharge page Print Language: Upper Sorbian Care Plan Goals: Finish 5 more days of antibiotics Continue Prednisone 40 mg for 3 more days Use your home nebulizer 4 times daily for the next 3 days then as needed Wean down O2 as tolerated Decrease Cardizem to 120 mg daily To follow with cardiology as outpatient for stress testing and further work up Monitor your weight at home, report any changes to PCP\lymphedema therapist Health Concerns: Read below Plan of Treatment: Read below Assessment: Read below
--- NOTE | 2024-03-05 12:34 | W.MHC.F2F ---
Service Date Service Date: 03/05/24 Encounter Date of encounter: 03/05/24 Reasons for Services Signs and symptoms assessed: New symptomatic heart failure O2 supplement Reason for senior care: medication management and teach disease management Homebound: Leaving the home is medically contraindicated at this time without the asist of a device and/or another person due th the listed conditions above and below. Reason homebound: shortness of breath with minimal effort Certification: Based on the above findings, I certify that this patient is confined to the home and needs intermittent senior care care, physical therapy and/or speech therapy, or continues to need occupational therapy. The patient is under my care, and I have initiated the establishment of the plan of care. The patient will be followed by a physician who will periodically review the plan of care. Time Spent With Patient Time: Total time managing care of this patient today ____ minutes.
[2024-03-06 07:29] LABS: Legionella Ag Urine Not Detected (Not Detected)
== END 2024-03-05 14:52 | disposition home health service (06) | DRG 871 ==
LOC: HO.ED 14:09 → HO.EDOVER 14:53 → HO.IMC 02-29 08:26
PROVIDERS: Physician Assistant; Admitting Provider Internal Medicine; Emergency Provider Emergency Medicine; PCP Family Medicine; Visit Provider Student in an Organized Health Care Education/Training Program
DX: A41.9 Sepsis, unspecified organism (principal); I21.A1 Myocardial infarction type 2; J18.9 Pneumonia, unspecified organism; J96.21 Acute and chronic respiratory failure with hypoxia; I47.10 Supraventricular tachycardia, unspecified; I48.92 Unspecified atrial flutter; J44.1 Chronic obstructive pulmonary disease with (acute) exacerbation; J44.0 Chronic obstructive pulmonary disease with (acute) lower respiratory infection; I95.9 Hypotension, unspecified; L25.8 Unspecified contact dermatitis due to other agents; E78.5 Hyperlipidemia, unspecified; D53.9 Nutritional anemia, unspecified; G89.29 Other chronic pain; N40.0 Benign prostatic hyperplasia without lower urinary tract symptoms; Z99.81 Dependence on supplemental oxygen; Z20.822 Contact with and (suspected) exposure to COVID-19; Z87.891 Personal history of nicotine dependence; Z79.01 Long term (current) use of anticoagulants; Z79.51 Long term (current) use of inhaled steroids; Z79.899 Other long term (current) drug therapy
CPT/HCPCS: 0241U; 36415; 71045; 80048; 80053; 81001; 82607; 82746; 83540; 83605; 83735; 83880; 84484; 85025; 85027; 85610; 87040; 87070; 87205; 87449; 87633; 87899; 93005; 93306; 94640; 97161; 99285; J0153; J0696; J1940; J2919; J3475; Q9957

== ENCOUNTER 2024-02-28 14:41 | Outpatient (BNV) | payer MEDICARE, MEDICAID, SELFPAY | END 2024-03-02 13:20 | PROVIDERS: Admitting Provider Internal Medicine; Emergency Provider Emergency Medicine; Visit Provider Internal Medicine Cardiovascular Disease | DX: I49.1 Atrial premature depolarization (principal); R94.31 Abnormal electrocardiogram [ECG] [EKG] | CPT/HCPCS: 93010 ==

== ENCOUNTER 2024-02-28 14:41 | Outpatient (BNV) | payer MEDICARE, MEDICAID, SELFPAY | END 2024-03-01 07:00 | PROVIDERS: Admitting Provider Internal Medicine; Emergency Provider Emergency Medicine; Visit Provider Internal Medicine Cardiovascular Disease | DX: I35.0 Nonrheumatic aortic (valve) stenosis (principal) | CPT/HCPCS: 93306 ==

== ENCOUNTER → 2024-02-28 14:41 | Outpatient (BNV) | payer MEDICARE, MEDICAID, SELFPAY | PROVIDERS: Admitting Provider Internal Medicine; Emergency Provider Emergency Medicine; Visit Provider Internal Medicine | DX: J96.21 Acute and chronic respiratory failure with hypoxia (principal); R94.31 Abnormal electrocardiogram [ECG] [EKG]; I48.92 Unspecified atrial flutter | CPT/HCPCS: 93010; 99223; 99233 ==

== ENCOUNTER → 2024-02-28 14:41 | Outpatient (BNV) | payer MEDICARE, MEDICAID, SELFPAY | PROVIDERS: Admitting Provider Internal Medicine; Emergency Provider Emergency Medicine; Visit Provider Physician Assistant | DX: J96.21 Acute and chronic respiratory failure with hypoxia (principal); R94.31 Abnormal electrocardiogram [ECG] [EKG]; I48.92 Unspecified atrial flutter; R79.89 Other specified abnormal findings of blood chemistry; J18.9 Pneumonia, unspecified organism; J44.1 Chronic obstructive pulmonary disease with (acute) exacerbation | CPT/HCPCS: 99223; 99232; 99233; 99239; 99499; G0180 ==

== ENCOUNTER → 2024-03-12 14:53 | Outpatient (REF) | payer MEDICARE, MEDICAID, SELFPAY ==
--- NOTE | 2024-03-12 14:55 | HM_ITS ---
* Total monitoring time 2 days. * Underlying rhythm is sinus with an average rate of 88/Min. About 14% of the time, rate > 100/Min. * Frequent supraventricular ectopy with a burden of 23%. Numerous brief runs noted. * Narrow complex tachycardia episodes that could be atrial flutter versus fibrillation. Cannot exclude atrial tachycardia. Longest episode 38 minutes. Fastest 149/Min. * Frequent ventricular ectopy with a burden of 2.5%. Multiple morphologies. Rare couplets, triplets, bigeminy, trigeminy. Numerous short runs noted. Longest episode 9 beats- varying morphologies and can also have supraventricular components with aberrancy. * No significant pauses or high-grade AV blocks. * Patient markers used in association with sinus rhythm, sinus tachycardia, supraventricular ectopy. * Patient diary with symptoms of pain, tingling, uneasy on feet associated with sinus rhythm and supraventricular ectopy. MTDD
== END ==
LOC: HO.CARD 14:53
PROVIDERS: PCP Family Medicine; Visit Provider Internal Medicine Cardiovascular Disease
DX: I48.92 Unspecified atrial flutter (principal); I49.9 Cardiac arrhythmia, unspecified; J44.9 Chronic obstructive pulmonary disease, unspecified
CPT/HCPCS: 93225

== ENCOUNTER → 2024-03-12 14:55 | Outpatient (BNV) | payer MEDICARE, MEDICAID, SELFPAY | PROVIDERS: PCP Family Medicine; Visit Provider Internal Medicine | DX: I47.10 Supraventricular tachycardia, unspecified (principal); I49.3 Ventricular premature depolarization | CPT/HCPCS: 93227 ==

== ENCOUNTER 2024-03-28 09:44 | Inpatient (IN) | payer MEDICARE, OTHER, SELFPAY ==
[2024-03-28] VITALS (18 sets, daily range): BP systolic 93–160; BP diastolic 39–83; PULSE 66–132; RESP 15–28; TEMP 35.8–36.5; O2SAT 85–97; BMI 26.2
--- NOTE | ~2024-03-28 | XR_ITS ---
EXAMINATION: XR CHEST CLINICAL INFORMATION: Worsening shortness of breath and tachycardia COMPARISON: 03/31/2024 TECHNIQUE: Portable upright 7:11 PM view of the chest was obtained. FINDINGS: Right-sided moderate pneumothorax is overall similar without sitting progression regression. Pigtail catheter right base remains similar. No new findings. Patchy bilateral airspace disease unchanged. No air-fluid level. XR/XR chest 1V IMPRESSION: Moderate right-sided pneumothorax unchanged. No new findings.
--- NOTE | ~2024-03-28 | XR_ITS ---
EXAMINATION: XR CHEST CLINICAL INFORMATION: Follow-up pneumothorax COMPARISON: Previous day's study TECHNIQUE: Upright portable 5:47 AM view of the chest was obtained. FINDINGS: Tiny pleural line right apex appears similar. Bilateral airspace disease unchanged. Pigtail catheter right base noted. No other change. Heart and mediastinum normal. No CHF. XR/XR chest 1V IMPRESSION: Tiny right apical pneumothorax unchanged.
--- NOTE | ~2024-03-28 | XR_ITS ---
EXAMINATION: XR CHEST CLINICAL INFORMATION: Status post right chest tube removal. COMPARISON: Chest radiograph 04/02/2024 at 5:47 AM. TECHNIQUE: Frontal view of the chest was obtained. FINDINGS: Stable prominence of the cardiomediastinal silhouette. Interval removal of the right sided chest tube without significant residual pneumothorax. Stable diffuse interstitial coarsening and diffuse reticular opacities. No significant pleural effusion. No acute osseous findings. XR/XR chest 1V IMPRESSION: 1. Interval removal of the right-sided chest tube without significant residual pneumothorax. 2. Stable diffuse interstitial coarsening and reticular opacities. 3. No significant pleural effusion.
--- NOTE | ~2024-03-28 | XR_ITS ---
EXAMINATION: XR CHEST CLINICAL INFORMATION: SOB. COMPARISON: Chest 03/03/2024 TECHNIQUE: Frontal view of the chest was obtained. FINDINGS: There is interval large right pneumothorax compressing the entire right lung towards mediastinum. There is bilateral patchy airspace opacities throughout both lungs which are stable. Heart size and pulmonary vascularity is normal. Is mediastinal shift to the left. No gross bony abnormality. XR/XR chest 1V IMPRESSION: 1. Interval large right pneumothorax compressing the entire length to the right. There is mediastinal shift to the left. 2. Bilateral patchy airspace opacities are stable. Results were immediately called to referrer Ari Harrison by phone in the ER at 10:50 AM.
--- NOTE | ~2024-03-28 | XR_ITS ---
EXAMINATION: XR CHEST CLINICAL INFORMATION: Follow-up pneumothorax COMPARISON: 03/28/2024 TECHNIQUE: Frontal view of the chest was obtained. FINDINGS: Residual right apical pneumothorax is present. The patient's oxygen tubing overlies the pleural border. Right-sided chest tube remains at the right lung base. The exam is otherwise unremarkable. XR/XR chest 1V IMPRESSION: Residual right apical pneumothorax.
--- NOTE | ~2024-03-28 | XR_ITS ---
EXAMINATION: XR CHEST CLINICAL INFORMATION: Right chest catheter with follow-up. COMPARISON: Chest x-ray performed 03/28/2024. TECHNIQUE: Frontal view of the chest was obtained. FINDINGS: There is small residual apical pneumothorax following placement of a right chest catheter. The pigtail catheter lies along the right hemidiaphragm. The lung has expanded 90%. There is bilateral patchy airspace opacity which is stable. Heart size is enlarged. Pulmonary vascularity is normal. No gross bony abnormality. XR/XR chest 1V IMPRESSION: 1. Small residual right apical pneumothorax following placement of a right chest catheter. The pigtail catheter lies along the right hemidiaphragm. 2. Bilateral patchy airspace opacity is stable.
--- NOTE | ~2024-03-28 | XR_ITS ---
EXAMINATION: XR CHEST CLINICAL INFORMATION: Follow-up pneumothorax COMPARISON: Yesterday TECHNIQUE: Frontal view of the chest was obtained. FINDINGS: A small right apical pneumothorax persists, slightly smaller than yesterday. Chest tube remains at the right lung base. No other significant interval change since yesterday. XR/XR chest 1V IMPRESSION: Slight decrease in size of right apical pneumothorax.
--- NOTE | ~2024-03-28 | XR_ITS ---
EXAMINATION: XR CHEST CLINICAL INFORMATION: Follow-up right pneumothorax COMPARISON: March 30, 2024 at 8:48 AM TECHNIQUE: Frontal view of the chest was obtained. FINDINGS: Interval increased size of small to moderate right apical pneumothorax. Right basilar chest tube has been repositioned and the tip is now curled along the lateral aspect of the lower right hemithorax. Stable cardiomediastinal silhouette. Similar appearance of patchy bilateral airspace opacities. Low lung volumes. XR/XR chest 1V IMPRESSION: Interval increased size of small to moderate right apical pneumothorax. Right basilar chest tube has been repositioned and the tip is now curled along the lateral aspect of the lower right hemithorax. This study was presented today March 31, 2024 for interpretation. Stat results provided at this time as requested by referring provider.
--- NOTE | ~2024-03-28 | XR_ITS ---
EXAMINATION: XR CHEST CLINICAL INFORMATION: Follow-up pneumothorax COMPARISON: Multiple prior chest radiographs most recently 03/31/2024 7:11 PM TECHNIQUE: Frontal view of the chest was obtained. FINDINGS: There is been a significant decrease in size of the right apical pneumothorax with only a very small pneumothorax remaining. Chest tube remains at the right lung base. No other interval change. XR/XR chest 1V IMPRESSION: Significant decrease in size of right apical pneumothorax.
--- NOTE | 2024-03-28 09:50 | ED_ITS ---
HPI - General Adult General Chief complaint: Dyspnea Stated complaint: DIFF BREATHING Time Seen by Provider: 03/28/24 10:40 Source: patient Mode of arrival: ambulatory Limitations: no limitations History of Present Illness ED Provider: Severo MCINTOSH HPI narrative: 78-year-old male past medical history significant for COPD on 2-3 L nasal cannula, pulmonary nodules, osteoarthritis, a flutter on eliquis presenting to the emergency department with acute onset shortness of breath that started this morning when patient awoke, patient on to 3 L nasal cannula family put him on 5 however despite this he continued to have shortness breath, he was saturating 71% when EMS arrived. Patient reports he has been coughing with some sputum production. He tells me that he is on blood thinners. Limited history as patient is very labored and unable to speak in full sentences. Denies sick contacts denies chest pain, nausea, vomiting, abdominal pain, headache, vision changes, dizziness and weakness. Related Data Home Medications ?Medication ?Instructions ?Recorded ?Confirmed atorvastatin 10 mg tablet 10 mg PO DAILY 06/19/20 03/28/24 fentanyl 100 mcg/hr transdermal 1 patch topical Q3D@1800 01/02/22 03/28/24 patch albuterol sulfate 90 mcg/actuation 2 puff inhalation Q4H PRN 10/17/23 03/28/24 aerosol inhaler Shortness Of Breath Or Wheezing cholecalciferol (vitamin D3) 25 25 mcg PO DAILY 10/17/23 03/28/24 mcg (1,000 unit) tablet multivitamin 1 tab PO DAILY 10/17/23 03/28/24 ipratropium 0.5 mg-albuterol 3 mg 3 ml inhalation QID PRN dyspnea 01/07/24 03/28/24 (2.5 mg base)/3 mL nebulization soln latanoprostene bunod 0.024 % eye 1 drp ophthalmic (eye) BEDTIME 01/07/24 03/28/24 drops (Vyzulta) pregabalin 75 mg capsule 75 mg PO DAILY 01/07/24 03/28/24 pyridoxine (vitamin B6) 50 mg 50 mg PO DAILY 01/07/24 03/28/24 capsule (Vitamin B-6) triamcinolone acetonide 0.1 % 1 appl topical DAILY PRN Rash 01/07/24 03/28/24 topical cream prednisone 10 mg tablet 10 mg PO DAILY 02/28/24 03/28/24 metoprolol tartrate 50 mg tablet 50 mg PO BID 03/28/24 03/28/24 oxycodone 5 mg tablet 5 mg PO Q8H PRN Pain 03/28/24 03/28/24 Previous Rx's ?Medication ?Instructions ?Recorded fluticasone fur. 100 mcg-umeclid 1 ea inhalation DAILY #180 ea 09/01/23 62.5 mcg-vilant 25 mcg inhalat.powder (Trelegy Ellipta) apixaban 5 mg tablet (Eliquis) 5 mg PO BID #60 tabs 01/13/24 Allergies Allergy/AdvReac Type Severity Reaction Status Date / Time No Known Allergies Allergy Mild NONE Verified 03/28/24 09:54 Review of Systems 2 Review of Systems: Yes all other systems are reviewed and are negative [facility]LY [facility] Past Medical History Attestation statement: The following information was validated with the patient. Source: old records reviewed and nursing notes reviewed Medical History HLD (hyperlipidemia) Osteoarthritis BPH (benign prostatic hyperplasia) Skin lesion of back Chronic obstructive pulmonary disease, unspecified Diverticulosis of large intestine without perforation or abscess without bleeding 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 Surgical History History of excision of lesion (~04/17/23) History of repair of rotator cuff History of colon resection (~2001) Family History Family History Mother Hypertension Father Hypertension Social History Social History Household Members: None Housing: House Do you presently have visiting nurse or other home services: Yes (Meals on wheels) Alcohol intake: never Comment: pt refusing alarms Patient Tobacco Use Status: Former Tobacco user Tobacco use type: Cigarette Smoked in Last 30 Days: No Use of substances other than those prescribed or required for medical reasons: No Advance Directives: Yes Advance Directives Information Provided: No Advance Directives on File: No service: No Current occupational status: employed and retired 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 /[employer] Physical Exam ED Vital Signs: Vital Signs - 24 hr 03/28/24 09:52 03/28/24 09:55 03/28/24 09:59 Temperature 97.1 F Pulse Rate 118 H Respiratory Rate 26 H 28 H 26 H Blood Pressure 160/83 H Pulse Oximetry 95 Oxygen Delivery Method BiPAP Oxygen Flow Rate 03/28/24 10:50 03/28/24 10:55 03/28/24 10:57 Temperature Pulse Rate 132 H 130 H Respiratory Rate 28 H 27 H 28 H Blood Pressure Pulse Oximetry 94 97 Oxygen Delivery Method Oxymask Oxymask Oxygen Flow Rate 4 3 03/28/24 11:10 03/28/24 11:27 03/28/24 11:36 Temperature Pulse Rate 88 78 75 Respiratory Rate 23 H 24 H 24 H Blood Pressure 114/55 L 95/39 L 93/51 L Pulse Oximetry 96 95 94 Oxygen Delivery Method Oxymask Oxymask Oxymask Oxygen Flow Rate 3 4 4 BMI result Body Mass Index 26.2 vss Appearance: Alert.? Oriented X3.? + moderate to severe respiratory distress Head: Normocephalic, atraumatic, no step-offs or deformities Eyes: Pupils equal, round and reactive to light.? ENT: Pharynx normal.? Neck: Normal inspection.? Neck supple.? CVS: Normal heart rate and rhythm.? Pulses normal.? Respiratory: Moderate to severe respiratory distress respiratory distress.? Breath sounds diminished bilaterally R>L Abdomen: Soft and nontender.? Skin: Skin warm and dry.? Normal skin color.? Normal skin turgor.? Extremities: No lower extremity edema.? No calf ttp. Global weakness Neuro: Oriented X 3.? No motor deficit.? No sensory deficit. CN 2-12 intact Course Reevaluation(s) Reevaluation #1: CBC with a macrocytic anemia appears to be around patient's baseline. His platelets are elevated 490. Patient's lactic acid elevated likely secondary to prolonged state of hypoxia unlikely from infection. Transaminases elevated at baseline no acute findings. Troponin 11.5 likely secondary to demand ischemia. BNP this may be around patient's baseline. Preliminary read by this PAMyrtle of patient's x-ray large right-sided pneumothorax. Time: 10:45 Reevaluation #2: Confirmatory call [facility] large right-sided pneumothorax compressing the entire length to the right there is mediastinal shift to the left. Bilateral patchy airspace opacities are stable however noted. Patient is being covered with ceftriaxone. Pigtail chest tube placed by this Dr. Rodriguez assited by this PA- C --> No complications. Post procedure film ordered. Immediately after insertion of pigtail patient feeling much better. States he can feel a lot better. He is saturating 92-93% on nasal cannula Time: 11:15 Reevaluation #3: Slightly soft pressure, 500 cc normal saline will be infused help with pressure. Patient feeling a lot better. Appears comfortable no longer having labored breathing. Plan is hospital admission for monitoring . Time: 11:22 Additional Reevaluation(s): DR. Rodriguez's note: 78-year-old male with history of COPD x-ray revealed large right pneumothorax patient required immediate decompression, pigtail was placed in the right chest wall please refer to procedure note, patient tolerated the procedure well felt much improved after thoracostomy, post thoracostomy x-ray showed satisfactory resolution of the pneumothorax. Patient hemodynamically stable will be admitted to the medical service and thoracic surgery was consulted. Medications Administered Discontinued Medications Generic Name Dose Route Start Last Admin Trade Name Freq PRN Reason Stop Dose Admin Fentanyl 50 mcg 03/28/24 09:51 03/28/24 09:55 Fentanyl Citrate/Pf 100 Mcg/2 Ml Vial IVPUSH 03/28/24 09:52 50 mcg ONCE ONE Administration Protocol Fentanyl 50 mcg 03/28/24 10:35 03/28/24 10:50 Fentanyl Citrate/Pf 100 Mcg/2 Ml Vial IVPUSH 03/28/24 10:36 50 mcg ONCE ONE Administration Protocol Ceftriaxone Sodium 1 gm/ 50 mls @ 100 mls/hr 03/28/24 09:55 03/28/24 10:49 Sodium Chloride IV 03/28/24 10:24 Infused ONCE ONE Infusion Sodium Chloride 500 mls @ 500 mls/hr 03/28/24 11:30 03/28/24 11:29 Ns IV 03/28/24 12:29 500 mls/hr .Q1H ANAID Administration Lidocaine HCl 30 ml 03/28/24 11:09 03/28/24 11:17 Lidocaine Hcl 1 % 10 Ml Vial SUBCUT 03/28/24 11:10 30 ml ONCE ONE Administration Methylprednisolone Sodium Succinate 125 mg 03/28/24 10:01 03/28/24 10:02 Methylprednisolone Sod Succ 125 Mg/2 Ml Vial IVPUSH 03/28/24 10:02 125 mg ONCE ONE Administration Procedures Chest Tube Chest Tube 1: Chest Tube Location: right Size of Tube (cm): 14 Chest Tube Prep: Yes betadine prep and sterile drapes applied Local Anesthetic: lidocaine 1% Amount of anesthesia used (mL): 10 Incision Made With: #11 blade Post Procedure: sutured to skin and sterile dressing applied Tube Drainage: none Post Procedure CXR?: Yes Patient Tolerated Procedure: Yes Progress: Procedure was performed by Dr. Rodriguez. Medical Decision Making Medical Decision Making [facility] Narrative: 78-year-old male presents in acute hypoxic respiratory failure from home found to be 71% on 5 L nasal cannula was placed on CPAP and saturating 96%. On exam patient with evident labored breathing intercostal muscle use for breathing, tracheal tugging unable to speak due to shortness of breath. Diminished breath sounds bilaterally R>L Appears to be in acute distress Will place patient on CPAP immediately. Will also give fentanyl to slow respiratory rate as he is extremely tachypneic. History and physical exam concerning for acute hypoxic respiratory failure versus chronic lung disease versus pneumonia versus viral illness. Less likely PE patient anticoagulated. I do not suspect ACS, dissection. Will rule out pneumothorax. Plan labs blood cultures, lactic acid, viral test, chest x-ray Differential Diagnosis Differential Diagnoses: The differential diagnosis associated with the presentation includes History and physical exam concerning for acute hypoxic respiratory failure versus chronic lung disease versus pneumonia versus viral illness. Less likely PE patient anticoagulated. I do not suspect ACS, dissection. Will rule out pneumothorax. Admission/Observation Consideration of admission/observation: Escalation of care including admission/observation considered possible Consult Healthcare Provider Management of the patient was discussed with: Hospitalist Lab Data [facility] Lab Attestation statement: I reviewed the patient's lab results. 03/28/24 09:53 03/28/24 09:53 Labs: Lab Results 03/28/24 03/28/24 Range/Units 09:53 09:56 WBC 7.8 (4.8-10.8) X10*3/uL RBC 3.16 L (4.60-5.80) X10*6/uL Hgb 10.5 L (14.0-18.0) g/dl Hct 32.7 L (42.0-52.0) % MCV 103.5 H (80.0-98.0) fL MCH 33.2 H (27.0-33.0) pg MCHC 32.1 (31.0-36.0) g/dl RDW 16.1 H (11.0-16.0) % Plt Count 490 H D (160-400) X10*3/uL MPV 10.5 (9.4-12.4) fL Immature Gran % (Auto) 1.5 H (0.0-0.4) % Neut % (Auto) 75.5 H (45-73) % Lymph % (Auto) 13.1 L (20-40) % [place] % (Auto) 7.2 (2-11) % Eos % (Auto) 1.9 (0-4) % Baso % (Auto) 0.8 (0-2) % Lymph # (Auto) 1.0 L (1.2-4.9) X10*3/uL [place] # (Auto) 0.6 (0.1-1.2) X10*3/uL Eos # (Auto) 0.2 (0.0-0.4) X10*3/uL Baso # (Auto) 0.1 (0.0-0.2) X10*3/uL Abs Immat Gran (auto) 0.12 H (0.00-0.03) X10*3/uL Absolute Neuts (auto) 5.9 (2.0-8.3) x10*3/uL Absolute Nucleated RBC 0.000 (0.0-0.012) X10*3/uL Nucleated RBC % (auto) 0.0 (0.0-0.2) /100WBC PT 19.2 H D (11.1-13.3) SEC INR 1.6 H (0.9-1.1) VBG pH 7.32 (7.32-7.43) VBG pCO2 55 mmHg VBG pO2 39 mmHg VBG HCO3 29 H (22-26) mmol/L VBG O2 Saturation 48.0 % VBG Base Excess 2.2 mmol/L Sodium 140 (135-145) mmol/L Potassium 4.3 (3.3-5.1) mmol/L Chloride 100 (96-108) mmol/L Carbon Dioxide 24 (22-29) mmol/L Anion Gap 20 (12-20) BUN 14 (9-16) mg/dL Creatinine 1.22 (0.5-1.4) mg/dL Estim Creat Clear Calc 54.8 Estimated GFR 58 Random Glucose 237 H (60-115) mg/dL Lactic Acid 3.5 H* (0.5-2.0) mmol/L Calcium 9.8 (8.4-10.2) mg/dL Magnesium 1.8 (1.6-2.6) mg/dL Total Bilirubin 0.4 (0.0-1.0) mg/dL AST 59 H (5-37) U/L ALT 77 H (0-40) U/L Alkaline Phosphatase 97 (39-117) U/L Troponin I High Sens 11.5 D (<3.5-35.0) ng/L B-Natriuretic Peptide 118 H (<100) pg/mL Total Protein 8.0 (6.5-8.0) g/dL Albumin 3.6 (3.5-5.0) g/dL Independent Interpretation I performed an independent interpretation of an: EKG (Vent. Rate : 117 BPM Atrial Rate : 117 BPM P-R Int : 146 ms QRS Dur : 096 ms QT Int : 314 ms P-R-T Axes : 091 069 079 degrees QTc Int : 438 ms Sinus tachycardia with Premature atrial complexes Cannot rule out Anterior infarct (cited on or before 28-FEB-2024) Abnormal E) and Plain X-Ray (XR/XR chest 1V IMPRESSION: 1. Interval large right pneumothorax compressing the entire length to the right. There is mediastinal shift to the left. 2. Bilateral patchy airspace opacities are stable. Results were immediately called to referreyunior Harrison by phone in the ER at 10:50 AM.) Radiology Impression Discussion of test interpretation with radiology: I have reviewed the radiologist's reading. External Record Review External record reviewed: Inpatient record, Office record, Outpatient record, Prior outpatient labs, Prior outpatient radiology and Primary care record Chronic Conditions Patient?s care impacted by: Other (COPD on 2-3 L nasal cannula, pulmonary nodules, osteoarthritis,) Critical Care Time Critical Care Time Critical Care Time: Yes Total Critical Care Time: 60 Attestation: I attest to this time spent taking care of the patient, obtaining history, physical, reviewing labs, imaging, speaking to my attending, specialist or hospitalist. Discharge Plan Discharge Clinical Impression: Acute hypoxic respiratory failure, Pneumothorax Patient Disposition: Admitted As Inpatient
--- NOTE | 2024-03-28 09:51 | ECG_ITS ---
Test Reason : SOB Blood Pressure : / mmHG Vent. Rate : 117 BPM Atrial Rate : 117 BPM P-R Int : 146 ms QRS Dur : 096 ms QT Int : 314 ms P-R-T Axes : 091 069 079 degrees QTc Int : 438 ms Sinus tachycardia with Premature atrial complexes Cannot rule out Anterior infarct (cited on or before 28-FEB-2024) Abnormal ECG When compared with ECG of 02-MAR-2024 13:20, Vent. rate has increased BY 43 BPM Questionable change in initial forces of Septal leads Questionable change in initial forces of Lateral leads Nonspecific T wave abnormality no longer evident in Inferior leads T wave inversion no longer evident in Anterior leads Referred By: Christy Chapman Electronically Signed By:MELLISA RICCI MD
[2024-03-28] MEDS: fentaNYL citrate/PF 100 MCG/2 ML VIAL 50 MCG IVPUSH ×2 (09:55→10:50)
--- NOTE | 2024-03-28 09:58 | PC.NURSE ---
Witnessed removal of Fentanyl 100mcg patch with Sandra LLAMAS
--- NOTE | 2024-03-28 09:58 | PC.NURSE ---
pt presents to ED via EMS from home, reports SOB starting this morning. Has hx of emphysema and is 3L O2 NC at baseline. Was found to be 71% on his O2 by ems, placed on CPAP and EMS gave 5mg of albuterol/ 0.5mg of atrovent. Improved to 95% on CPAP for EMS. IV in left AC 20G by EMS. Pt is alert and oriented, breathing labored and elevated, skin pale and dry. Reports SOB and right sided chest pain, 3/10. 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
--- NOTE | 2024-03-28 09:59 | PC.NURSE ---
Per provider order, remove pts home fentanyl patch on right upper leg. 2 RNs removed and wasted.
[2024-03-28 10:01] LABS: Basophils Absolute Auto 0.1 X10*3/uL (0.0-0.2); Basophils Percent Auto 0.8 % (0-2); Eosinophils Absolute Auto 0.2 X10*3/uL (0.0-0.4); Eosinophils Percent Auto 1.9 % (0-4); Hematocrit 32.7 % (42.0-52.0); Hemoglobin 10.5 g/dl (14.0-18.0); Imm Gran Abs Auto 0.12 X10*3/uL (0.00-0.03); Imm Gran Pct Auto 1.5 % (0.0-0.4); Lymphocytes Percent Auto 13.1 % (20-40); MANUAL DIFF FLAG NO; Mean Corpuscular HGB Conc 32.1 g/dl (31.0-36.0); Mean Corpuscular Hemoglobin 33.2 pg (27.0-33.0); Mean Corpuscular Volume 103.5 fL (80.0-98.0); Mean Platelet Volume 10.5 fL (9.4-12.4); Monocytes Absolute Auto 0.6 X10*3/uL (0.1-1.2); Monocytes Percent Auto 7.2 % (2-11); Neutrophils Absolute Auto 5.9 x10*3/uL (2.0-8.3); Neutrophils Percent Auto 75.5 % (45-73); Platelet Count 490 X10*3/uL (160-400); Red Blood Count 3.16 X10*6/uL (4.60-5.80); Red Cell Distribution Width 16.1 % (11.0-16.0); White Blood Count 7.8 X10*3/uL (4.8-10.8)
[2024-03-28 10:02] LABS: Venous Blood Gas Refer to POC result
[2024-03-28] MEDS: methylPREDNISolone Sod Succ 125 MG/2 ML VIAL IVPUSH (10:02)
[2024-03-28 10:03] LABS: VBG Base Excess 2.2 mmol/L; VBG HCO3 29 mmol/L (22-26); VBG pCO2 55 mmHg; VBG pH 7.32 (7.32-7.43); VBG pO2 39 mmHg
[2024-03-28 10:06] LABS: INTERNATIONAL NORM RATIO 1.6 (0.9-1.1); Prothrombin Time 19.2 SEC (11.1-13.3)
[2024-03-28] MEDS: cefTRIAXone sodium 1 GM in 0.9 % Sodium Chloride 50 ML IV (10:15)
[2024-03-28 10:26] LABS: Alanine Aminotransferase 77 U/L (0-40); Albumin Level 3.6 g/dL (3.5-5.0); Alkaline Phosphatase 97 U/L (39-117); Anion Gap 20 (12-20); Aspartate Amino Transferase 59 U/L (5-37); Bilirubin Total 0.4 mg/dL (0.0-1.0); Blood Urea Nitrogen 14 mg/dL (9-16); Calcium 9.8 mg/dL (8.4-10.2); Carbon Dioxide 24 mmol/L (22-29); Chloride 100 mmol/L (96-108); Creatinine Clr Calc Pharmacy 54.8; Estimated Glomerular Filt Rate 58; Glucose Random 237 mg/dL (60-115); Magnesium 1.8 mg/dL (1.6-2.6); Potassium 4.3 mmol/L (3.3-5.1); Sodium 140 mmol/L (135-145)
[2024-03-28 10:28] LABS: Lactic Acid 3.5 mmol/L (0.5-2.0); Troponin-I High Sensitivity 11.5 ng/L (<3.5-35.0)
[2024-03-28 10:29] LABS: B Type Natriuretic Peptide 118 pg/mL (<100)
--- NOTE | 2024-03-28 10:50 | PC.NURSE ---
MD and PA at bedside placing chest tube on right side. RT at bedside. Pt on 4L via NC.
[2024-03-28] MEDS: Lidocaine HCl 1 % 10 ML VIAL 30 ML SUBCUT (11:17)
[2024-03-28] MEDS: 0.9 % Sodium Chloride 500 ML IV (11:29)
--- NOTE | 2024-03-28 11:32 | PC.NURSE ---
Pt monitored during chest tube insertion procedure. Pt tolerated procedure well. Noted to have instant relief with chest tube insertion. Remained alert and oriented. Brief episode of ectopy on monitor with insertion. Size 14 chest tube placed on right side, drainage system hooked to wall suction
--- NOTE | 2024-03-28 11:34 | PC.NURSE ---
pt currently alert and oriented, breathing much more calm and even. pt reports I feel so much better now . Pt does have brief episodes of coughing that resolve. NS bolus initiated per MD provider for slight hypotension post procedure.
--- NOTE | 2024-03-28 11:44 | PC.NURSE ---
Chest tube assessment: Drainage system attached to wall suction. [place] bevel in appropriate place. -20cm H2O. Intermittent bubbling noted in water chamber with breathing. No drainage in the sealed chamber. No leak noted in chest tube connection. Patient alert and oriented, RR 20-24, even and unlabored. Maintained on oxymask at 4L O2, 94-96%. Pain 6/10 at insertion site with breathing per pt. Dressing dry and intact. No crepitus around the area noted. Lung sounds diminished on right side but present, left side present and clear.
--- NOTE | 2024-03-28 11:54 | P.HPHOSP_ITS ---
History of Present Illness Date of Service: 03/28/24 Chief Complaint: sudden onset shortness of breath The patient is a 78 year old male with a PMH of COPD with chronic respiratory failure with hypoxia, HLD, BPH, chronic lower back pain, arthritis who presented to the emergency room with complaints of sudden-onset shortness of breath which began just prior to arrival. The patient states that he had a severe coughing spell just prior to this after which he began feeling as if he was unable to catch his breath. He is chronically on 3 L and this was increased to 5 L at home but did not have any improvements in his symptoms hence paramedics were called. Per emergency room records, the patient's saturations were below 80 when EMS arrived. In the emergency room the patient's workup revealed a large right-sided pneumothorax with mediastinal shift. A chest tube was placed by the emergency room with improvement in the patient's symptoms. Thoracic surgery has been notified by the ED. Patient is seen and examined in the emergency room. He reports significant improvements post chest tube insertion. Reports being at his baseline self prior to the events that brought him to the ED. denies any increased shortness of breath or chest pain, cough or fevers as of yesterday. Review of Systems 2 Review of Systems: Negative except HPI/interval history. ON LICENSE OF [facility] Medical History HLD (hyperlipidemia) Osteoarthritis BPH (benign prostatic hyperplasia) Skin lesion of back Chronic obstructive pulmonary disease, unspecified Diverticulosis of large intestine without perforation or abscess without bleeding 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 Family History Mother Hypertension Father Hypertension Surgical History History of excision of lesion (~04/17/23) History of repair of rotator cuff History of colon resection (~2001) Social History Household Members: None Housing: House Do you presently have visiting nurse or other home services: Yes (Meals on wheels) Alcohol intake: never Comment: pt refusing alarms Patient Tobacco Use Status: Former Tobacco user Tobacco use type: Cigarette Smoked in Last 30 Days: No Use of substances other than those prescribed or required for medical reasons: No Advance Directives: Yes Advance Directives Information Provided: No Advance Directives on File: No service: No Current occupational status: employed and retired 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 /[employer] 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 Allergies Allergy/AdvReac Type Severity Reaction Status Date / Time No Known Allergies Allergy Mild NONE Verified 03/28/24 09:54 Active Medications: Current Medications Acetaminophen (Acetaminophen 325 Mg Tablet) 650 mg PO Q6H PRN PRN Reason: Pain, Mild (Pain Scale 1-3), fever or headache Calcium Carbonate (Calcium Carbonate 750 Mg Tab.Chew) 750 mg PO Q4H PRN PRN Reason: Heartburn Sodium Chloride (Ns) 500 mls @ 500 mls/hr IV .Q1H [facility] Stop: 03/28/24 12:29 Last Admin: 03/28/24 11:29 Dose: 500 mls/hr Magnesium Hydroxide (Milk Of Magnesia 30 Ml Oral.Susp) 30 ml PO DAILY PRN PRN Reason: Constipation Melatonin (Melatonin 3 Mg Tablet) 6 mg PO BEDTIME PRN PRN Reason: Insomnia Sodium Chloride (0.9 % Sodium Chloride Flush 3 Ml Syringe) 3 ml IVFLUSH QSHIFT [facility] Home Medications ?Medication ?Instructions ?Recorded ?Confirmed ?Last Taken ?Type atorvastatin 10 mg tablet 10 mg PO DAILY 06/19/20 03/28/24 10/16/23 History fentanyl 100 mcg/hr transdermal 1 patch topical Q3D@1800 01/02/22 03/28/24 10/16/23 History patch albuterol sulfate 90 mcg/actuation 2 puff inhalation Q4H PRN 10/17/23 03/28/24 10/16/23 History aerosol inhaler Shortness Of Breath Or Wheezing cholecalciferol (vitamin D3) 25 25 mcg PO DAILY 10/17/23 03/28/24 10/16/23 History mcg (1,000 unit) tablet multivitamin 1 tab PO DAILY 10/17/23 03/28/24 10/16/23 History ipratropium 0.5 mg-albuterol 3 mg 3 ml inhalation QID PRN dyspnea 01/07/24 03/28/24 Unknown History (2.5 mg base)/3 mL nebulization soln latanoprostene bunod 0.024 % eye 1 drp ophthalmic (eye) BEDTIME 01/07/24 03/28/24 Unknown History drops (Vyzulta) pregabalin 75 mg capsule 75 mg PO DAILY 01/07/24 03/28/24 Unknown History pyridoxine (vitamin B6) 50 mg 50 mg PO DAILY 01/07/24 03/28/24 Unknown History capsule (Vitamin B-6) triamcinolone acetonide 0.1 % 1 appl topical DAILY PRN Rash 01/07/24 03/28/24 Unknown History topical cream prednisone 10 mg tablet 10 mg PO DAILY 02/28/24 03/28/24 03/28/24 History metoprolol tartrate 50 mg tablet 50 mg PO BID 03/28/24 03/28/24 Unknown History oxycodone 5 mg tablet 5 mg PO Q8H PRN Pain 03/28/24 03/28/24 Unknown History Physical Exam 2 Vital Signs and Narrative: Vital Signs: Last Vital Signs Temp 97.1 F 03/28/24 09:52 Pulse 73 03/28/24 11:50 Resp 20 03/28/24 11:50 BP 98/53 L 03/28/24 11:50 Pulse Ox 96 03/28/24 11:50 O2 Del Method Oxymask 03/28/24 11:50 O2 Flow Rate 4 03/28/24 11:50 BMI result Body Mass Index 26.2 Const: Other: Constitutional - Awake and Alert, No apparent distress Eyes - PERRLA, EOMI Cardiovascular - S1S2, RRR, No edema Respiratory - R lung diminished sounds; LL clear; trachea midline Gastrointestinal - NT / ND; +BS; No rebound or guarding - No CVA tenderness Extremities - no calf tenderness bilaterally, no swelling Musculoskeletal - Normal inspection, normal ROM Skin - Warm/Dry Neurological - Alert & oriented x3, No focal deficit Psychological - Appropriate affect Results Labs 03/28/24 09:53 03/28/24 09:53 Labs: Laboratory Results - last 24 hr 03/28/24 03/28/24 09:53 09:56 MCV 103.5 H MCH 33.2 H MCHC 32.1 RDW 16.1 H Plt Count 490 H D MPV 10.5 Immature Gran % (Auto) 1.5 H Neut % (Auto) 75.5 H Lymph % (Auto) 13.1 L Mcmullen % (Auto) 7.2 Eos % (Auto) 1.9 Baso % (Auto) 0.8 Lymph # (Auto) 1.0 L Mcmullen # (Auto) 0.6 Eos # (Auto) 0.2 Baso # (Auto) 0.1 Abs Immat Gran (auto) 0.12 H Absolute Neuts (auto) 5.9 Absolute Nucleated RBC 0.000 Nucleated RBC % (auto) 0.0 PT 19.2 H D INR 1.6 H VBG pH 7.32 VBG pCO2 55 VBG pO2 39 VBG HCO3 29 H VBG O2 Saturation 48.0 VBG Base Excess 2.2 Anion Gap 20 Estim Creat Clear Calc 54.8 Estimated GFR 58 Random Glucose 237 H Lactic Acid 3.5 H* Calcium 9.8 Magnesium 1.8 Total Bilirubin 0.4 AST 59 H ALT 77 H Alkaline Phosphatase 97 Troponin I High Sens 11.5 D B-Natriuretic Peptide 118 H Total Protein 8.0 Albumin 3.6 Imaging Radiologist's Impressions: Impressions Chest X-Ray 03/28/24 10:20 IMPRESSION: 1. Interval large right pneumothorax compressing the entire length to the right. There is mediastinal shift to the left. 2. Bilateral patchy airspace opacities are stable. Results were immediately called to referrer Ari Harrison by phone in the ER at 10:50 AM. Assessment and Plan (1) Pneumothorax: Status: Acute (2) Acute hypoxic respiratory failure: Status: Acute Plan 78 yo M with COPD and chronic resp. failure on 3L who presents with sudden onset shortness of breath. Found to have large right-sided pneumothorax, status post chest tube insertion. 1. Spontaneous pneumothorax Likely due to underlying COPD Status post chest tube with clinical improvement Official chest x-ray reading pending, pneumothorax looks largely resolved Thoracic surgery consult 2.Acute on chronic respiratory failure with hypoxia due to above Currently on 4 L, wean to baseline as tolerated 3. COPD Not in acute exacerbation, will continue baseline medications 4. Paroxysmal AFib Continue anticoagulation We will hold rate control drugs today, given soft BP 5. Chronic back pain Continue fentanyl patch and prn oxy Full code DVT prophylaxis, Eliquis Patient with large spontaneous pneumothorax requiring chest tube therefore expected to require 2 midnights in the hospital for management and hence will be admitted as inpatient. Quality Stroke Does the patient have a stroke diagnosis?: No VTE Prior VTE?: No VTE Risk Level:: Medical - moderate - high VTE Device Contraindication: Treatment Not Indicated VTE Drug Contraindication: N/A - Med Ordered
[2024-03-28 11:58] LABS: Reflex Lactate? Lactic Acid Added
--- NOTE | 2024-03-28 12:22 | PHA.MEDREC ---
Addendum entered by Steve Mckay [facility] 03/28/24 12:35: MED REC CHECKED BY [facility] Original Note: Pharmacy Consult ? Medication Reconciliation Pharmacy has completed the medication reconciliation. Spoke with patient to confirm medications. He reports his diltiazem was discontinued and changed to metoprolol tart 50mg BID. He states he has been having to use his nebulizer about 3-4x/day lately. His pregabalin was decreased to 1 capsule daily. He is not taking tamsulosin, bupropion, theophylline, tramadol, or tobramycin eye drops. He has not had mucinex in a few weeks, he bought it OTC but not the correct one and has not had the chance to buy the right one. He took his morning medications, including an eliquis and prednisone today.
[2024-03-28 12:33] LABS: ~Lactic Acid-LAB USE ONLY 2.5 mmol/L (0.5-2.0)
[2024-03-28] MEDS: oxyCODONE HCl Immed Release 5 MG TABLET PO ×2 (12:50→23:08)
[2024-03-28 14:15] LABS: Reflex Lactate? 2 Y
[2024-03-28] MEDS: 0.9 % Sodium Chloride Flush 3 ML SYRINGE IVFLUSH ×2 (16:04→22:12)
--- NOTE | 2024-03-28 16:14 | PC.NURSE ---
Pt resting in bed, denies SOB. Reports pain is controlled after taking the PRN oxycodone. Breathing even and unlabored, remains on his baseline 3L O2 via NC. No leaks noted from chest tube. Suction remains intact, -20 cmH2O. +Tidaling and bubbling intermittently. Dressing dry and intact.
[2024-03-28] MEDS: fentaNYL 100 MCG PATCH.TD72 TRANSDERMA (17:30)
--- NOTE | 2024-03-28 17:40 | PC.NURSE ---
Pt noted to have not urinated in >8 hours, reports no urge to urinate. Bladder is not distended. Pt bladder scanned and is 187 mL
[2024-03-28 17:51] LABS: Glucose, Whole Blood 187 mg/dL (60-115)
[2024-03-28] MEDS: 0.9 % Sodium Chloride 1,000 ML 100 ML IVCONT (17:51)
--- NOTE | 2024-03-28 19:03 | PC.NURSE ---
Assumed care of pt. Pt lying on stretcher, no acute distress. Pt breathing even and regular at this time, O2 at3L via NC, chest tube in place, no leaks apparent at this time, lung sounds clear bilat in all lobes. IV patent, IVF running at 100/hr. VSS as charted.
[2024-03-28] MEDS: Apixaban 5 MG TABLET PO (22:12)
[2024-03-29] VITALS (7 sets, daily range): BP systolic 116–133; BP diastolic 56–62; PULSE 62–72; RESP 16–20; TEMP 36.1–36.6; O2SAT 92–98
[2024-03-29] MEDS: oxyCODONE HCl Immed Release 5 MG TABLET PO ×3 (04:07→21:47)
[2024-03-29 06:53] LABS: Hematocrit 23.9 % (42.0-52.0); Hemoglobin 7.9 g/dl (14.0-18.0); Mean Corpuscular HGB Conc 33.1 g/dl (31.0-36.0); Mean Corpuscular Hemoglobin 34.1 pg (27.0-33.0); Mean Platelet Volume 10.4 fL (9.4-12.4); Platelet Count 329 X10*3/uL (160-400); Red Blood Count 2.32 X10*6/uL (4.60-5.80); Red Cell Distribution Width 16.1 % (11.0-16.0); White Blood Count 2.9 X10*3/uL (4.8-10.8)
[2024-03-29 07:18] LABS: Anion Gap 11 (12-20); Blood Urea Nitrogen 19 mg/dL (9-16); Calcium 8.7 mg/dL (8.4-10.2); Carbon Dioxide 29 mmol/L (22-29); Chloride 102 mmol/L (96-108); Creatinine Clr Calc Pharmacy 83.6; Estimated Glomerular Filt Rate > 60; Glucose Random 157 mg/dL (60-115); Potassium 4.5 mmol/L (3.3-5.1); Sodium 137 mmol/L (135-145)
--- NOTE | 2024-03-29 07:48 | HO.THORCONS ---
History of Present Illness Consult details Consult date: 03/29/24 Narrative: Patient is a 78-year-old male with a plethora of intercurrent medical problems and comorbidities who presents here because of progressively worsening shortness of breath after having a significant coughing paroxysm. Workup at that time demonstrated a significant pneumothorax which was treated by ER physician with pigtail catheter with excellent re-expansion of the lung. Thoracic consult obtained for chest tube management. Chart was reviewed and patient evaluated PMFSH Past Medical History Medical History HLD (hyperlipidemia) Osteoarthritis BPH (benign prostatic hyperplasia) Skin lesion of back Chronic obstructive pulmonary disease, unspecified Diverticulosis of large intestine without perforation or abscess without bleeding 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 Family History Family History Mother Hypertension Father Hypertension Surgical History Surgical History History of excision of lesion (~04/17/23) History of repair of rotator cuff History of colon resection (~2001) Social History Social History Household Members: None Housing: House Do you presently have visiting nurse or other home services: Yes Alcohol intake: never Comment: pt refusing alarms Patient Tobacco Use Status: Former Tobacco user Tobacco use type: Cigarette Advance Directives Date on File: 03/29/24 service: No Current occupational status: employed and retired 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 /[employer] Meds Allergies Allergy/AdvReac Type Severity Reaction Status Date / Time No Known Allergies Allergy Mild NONE Verified 03/28/24 09:54 Active Medications: Current Medications Acetaminophen (Acetaminophen 325 Mg Tablet) 650 mg PO Q6H PRN PRN Reason: Pain, Mild (Pain Scale 1-3), fever or headache Albuterol Sulfate (Albuterol Sulfate 90 Mcg 8 Gm Inhaler) 2 puff INHALE Q4H PRN PRN Reason: Shortness Of Breath Or Wheezing Albuterol/Ipratropium (Albuterol/Iprat 2.5/0.5mg 3 Ml Ampul.Neb) 3 ml INHALE QID PRN PRN Reason: dyspnea Apixaban (Apixaban 5 Mg Tablet) 5 mg PO BID [facility] Last Admin: 03/28/24 22:12 Dose: 5 mg Atorvastatin Calcium (Atorvastatin Calcium 10 Mg Tablet) 10 mg PO DAILY [facility] Calcium Carbonate (Calcium Carbonate 750 Mg Tab.Chew) 750 mg PO Q4H PRN PRN Reason: Heartburn Fentanyl (Fentanyl 100 Mcg Patch.Td72) 100 mcg TRANSDERMA Q3D@1800 [facility] Last Admin: 03/28/24 17:30 Dose: 100 mcg Fluticasone/Umeclidinium/Vilanterol (Fluticasone/Umeclidinium/Vilanterol 100/62.5/25 Blst.W.Dev) 1 puff INHALE RDAILY [facility] Magnesium Hydroxide (Milk Of Magnesia 30 Ml Oral.Susp) 30 ml PO DAILY PRN PRN Reason: Constipation Melatonin (Melatonin 3 Mg Tablet) 6 mg PO BEDTIME PRN PRN Reason: Insomnia Multivitamins/Vitamin C (Multivitamin Tablet) 1 tab PO DAILY [facility] Oxycodone HCl (Oxycodone Hcl Immed Release 5 Mg Tablet) 5 mg PO Q8H PRN PRN Reason: Pain, Moderate(Pain Scale 4-6) Last Admin: 03/29/24 04:07 Dose: 5 mg Prednisone (Prednisone 10 Mg Tablet) 10 mg PO DAILY [facility] Pregabalin (Pregabalin 75 Mg Capsule) 75 mg PO DAILY [facility] Sodium Chloride (0.9 % Sodium Chloride Flush 3 Ml Syringe) 3 ml IVFLUSH QSHIFT [facility] Last Admin: 03/28/24 22:12 Dose: 3 ml Vitamin D (Cholecalciferol (Vitamin D3) 25 Mcg Tablet) 25 mcg PO DAILY [facility] Home Medications ?Medication ?Instructions ?Recorded ?Confirmed ?Last Taken ?Type atorvastatin 10 mg tablet 10 mg PO DAILY 06/19/20 03/28/24 10/16/23 History fentanyl 100 mcg/hr transdermal 1 patch topical Q3D@1800 01/02/22 03/28/24 10/16/23 History patch albuterol sulfate 90 mcg/actuation 2 puff inhalation Q4H PRN 10/17/23 03/28/24 10/16/23 History aerosol inhaler Shortness Of Breath Or Wheezing cholecalciferol (vitamin D3) 25 25 mcg PO DAILY 10/17/23 03/28/24 10/16/23 History mcg (1,000 unit) tablet multivitamin 1 tab PO DAILY 10/17/23 03/28/24 10/16/23 History ipratropium 0.5 mg-albuterol 3 mg 3 ml inhalation QID PRN dyspnea 01/07/24 03/28/24 Unknown History (2.5 mg base)/3 mL nebulization soln latanoprostene bunod 0.024 % eye 1 drp ophthalmic (eye) BEDTIME 01/07/24 03/28/24 Unknown History drops (Vyzulta) pregabalin 75 mg capsule 75 mg PO DAILY 01/07/24 03/28/24 Unknown History pyridoxine (vitamin B6) 50 mg 50 mg PO DAILY 01/07/24 03/28/24 Unknown History capsule (Vitamin B-6) triamcinolone acetonide 0.1 % 1 appl topical DAILY PRN Rash 01/07/24 03/28/24 Unknown History topical cream prednisone 10 mg tablet 10 mg PO DAILY 02/28/24 03/28/24 03/28/24 History metoprolol tartrate 50 mg tablet 50 mg PO BID 03/28/24 03/28/24 Unknown History oxycodone 5 mg tablet 5 mg PO Q8H PRN Pain 03/28/24 03/28/24 Unknown History Physical Exam Vital Signs: Vital Signs: Last Vital Signs Temp 97.2 F 03/29/24 07:16 Pulse 66 03/29/24 07:16 Resp 20 03/29/24 07:16 BP 123/62 03/29/24 07:16 Pulse Ox 92 03/29/24 07:16 O2 Del Method Nasal Cannula 03/29/24 07:16 O2 Flow Rate 3 03/29/24 07:16 BMI result Body Mass Index 26.2 Const: Other: Very pleasant elderly male. In no acute respiratory distress. Chest: Other: Chest breath sounds bilaterally, chest tube intact with no output and no air leak appreciated. Results Labs 03/29/24 05:54 03/29/24 05:55 Labs: Abnormal lab results 03/28/24 03/28/24 03/28/24 Range/Units 09:53 09:56 12:12 WBC (4.8-10.8) X10*3/uL RBC 3.16 L (4.60-5.80) X10*6/uL Hgb 10.5 L (14.0-18.0) g/dl Hct 32.7 L (42.0-52.0) % MCV 103.5 H (80.0-98.0) fL MCH 33.2 H (27.0-33.0) pg RDW 16.1 H (11.0-16.0) % Plt Count 490 H D (160-400) X10*3/uL Immature Gran % (Auto) 1.5 H (0.0-0.4) % Neut % (Auto) 75.5 H (45-73) % Lymph % (Auto) 13.1 L (20-40) % Lymph # (Auto) 1.0 L (1.2-4.9) X10*3/uL Abs Immat Gran (auto) 0.12 H (0.00-0.03) X10*3/uL PT 19.2 H D (11.1-13.3) SEC INR 1.6 H (0.9-1.1) VBG HCO3 29 H (22-26) mmol/L Anion Gap (12-20) BUN (9-16) mg/dL POC Glucose (60-115) mg/dL Random Glucose 237 H (60-115) mg/dL Lactic Acid 3.5 H* (0.5-2.0) mmol/L Lactic Acid F/U @ 2Hr 2.5 H* (0.5-2.0) mmol/L Lactic Acid F/U @ 4Hr (0.5-2.0) mmol/L AST 59 H (5-37) U/L ALT 77 H (0-40) U/L B-Natriuretic Peptide 118 H (<100) pg/mL 03/28/24 03/28/24 03/29/24 Range/Units 14:31 17:46 05:54 WBC 2.9 L (4.8-10.8) X10*3/uL RBC 2.32 L D (4.60-5.80) X10*6/uL Hgb 7.9 L D (14.0-18.0) g/dl Hct 23.9 L D (42.0-52.0) % MCV 103.0 H (80.0-98.0) fL MCH 34.1 H (27.0-33.0) pg RDW 16.1 H (11.0-16.0) % Plt Count (160-400) X10*3/uL Immature Gran % (Auto) (0.0-0.4) % Neut % (Auto) (45-73) % Lymph % (Auto) (20-40) % Lymph # (Auto) (1.2-4.9) X10*3/uL Abs Immat Gran (auto) (0.00-0.03) X10*3/uL PT (11.1-13.3) SEC INR (0.9-1.1) VBG HCO3 (22-26) mmol/L Anion Gap (12-20) BUN (9-16) mg/dL POC Glucose 187 H (60-115) mg/dL Random Glucose (60-115) mg/dL Lactic Acid (0.5-2.0) mmol/L Lactic Acid F/U @ 2Hr (0.5-2.0) mmol/L Lactic Acid F/U @ 4Hr 3.0 H* (0.5-2.0) mmol/L AST (5-37) U/L ALT (0-40) U/L B-Natriuretic Peptide (<100) pg/mL 03/29/24 Range/Units 05:55 WBC (4.8-10.8) X10*3/uL RBC (4.60-5.80) X10*6/uL Hgb (14.0-18.0) g/dl Hct (42.0-52.0) % MCV (80.0-98.0) fL MCH (27.0-33.0) pg RDW (11.0-16.0) % Plt Count (160-400) X10*3/uL Immature Gran % (Auto) (0.0-0.4) % Neut % (Auto) (45-73) % Lymph % (Auto) (20-40) % Lymph # (Auto) (1.2-4.9) X10*3/uL Abs Immat Gran (auto) (0.00-0.03) X10*3/uL PT (11.1-13.3) SEC INR (0.9-1.1) VBG HCO3 (22-26) mmol/L Anion Gap 11 L (12-20) BUN 19 H (9-16) mg/dL POC Glucose (60-115) mg/dL Random Glucose 157 H (60-115) mg/dL Lactic Acid (0.5-2.0) mmol/L Lactic Acid F/U @ 2Hr (0.5-2.0) mmol/L Lactic Acid F/U @ 4Hr (0.5-2.0) mmol/L AST (5-37) U/L ALT (0-40) U/L B-Natriuretic Peptide (<100) pg/mL Short CBC 03/28/24 03/29/24 Range/Units 09:53 05:54 WBC 7.8 2.9 L (4.8-10.8) X10*3/uL Hgb 10.5 L 7.9 L D (14.0-18.0) g/dl Hct 32.7 L 23.9 L D (42.0-52.0) % Plt Count 490 H D 329 D (160-400) X10*3/uL BMP 03/28/24 03/29/24 09:53 05:55 Sodium 140 137 Potassium 4.3 4.5 Chloride 100 102 Carbon Dioxide 24 29 BUN 14 19 H Creatinine 1.22 0.80 Calcium 9.8 8.7 D Liver Function 03/28/24 Range/Units 09:53 Total Bilirubin 0.4 (0.0-1.0) mg/dL AST 59 H (5-37) U/L ALT 77 H (0-40) U/L Alkaline Phosphatase 97 (39-117) U/L Albumin 3.6 (3.5-5.0) g/dL All other labs normal. Assessment and Plan (1) Pneumothorax: Status: Acute (2) Acute hypoxic respiratory failure: Status: Acute Plan A.m. chest x-ray pending, encourage incentive spirometry, out of bed. To follow up Procedures Date of Service Date of Service: 03/29/24
[2024-03-29] MEDS: Fluticasone/Umeclidinium/Vilanterol 100/62.5/25 BLST.W.DEV 1 PUFF INHALE (08:18)
[2024-03-29] MEDS: Multivitamin TABLET 1 TAB PO (08:35)
[2024-03-29] MEDS: predniSONE 10 MG TABLET PO (08:35)
[2024-03-29] MEDS: Atorvastatin Calcium 10 MG TABLET PO (08:36)
[2024-03-29] MEDS: Apixaban 5 MG TABLET PO ×2 (08:36→21:47)
[2024-03-29] MEDS: Pregabalin 75 MG CAPSULE PO (08:36)
[2024-03-29] MEDS: Cholecalciferol (Vitamin D3) 25 MCG TABLET PO (08:36)
[2024-03-29] MEDS: 0.9 % Sodium Chloride Flush 3 ML SYRINGE IVFLUSH (08:42)
--- NOTE | 2024-03-29 09:08 | HO.PM.IMPN ---
Subjective Subjective Date of Service: 03/29/24 Interval History: f/u right sided PTX and has chest tube interval history: feels a lot better but overal chest tube remains in place. Physical Exam Vital Signs: Vital Signs: Last Vital Signs Temp 97.2 F 03/29/24 07:16 Pulse 66 03/29/24 08:19 Resp 16 03/29/24 08:19 BP 123/62 03/29/24 07:16 Pulse Ox 92 03/29/24 07:16 O2 Del Method Nasal Cannula 03/29/24 07:16 O2 Flow Rate 3 03/29/24 07:16 BMI result Body Mass Index 26.2 General: AO X 3, no acute distress Resp: CTA bilateral CVS: S1,S2,RRR GI: +BS, NT, no distention Skin: No rash Neuro: motor grossly intact Psych: appropriate affect Objective Data Active Medications Acetaminophen (Acetaminophen 325 Mg Tablet) 650 mg PO Q6H PRN PRN Reason: Pain, Mild (Pain Scale 1-3), fever or headache Albuterol Sulfate (Albuterol Sulfate 90 Mcg 8 Gm Inhaler) 2 puff INHALE Q4H PRN PRN Reason: Shortness Of Breath Or Wheezing Albuterol/Ipratropium (Albuterol/Iprat 2.5/0.5mg 3 Ml Ampul.Neb) 3 ml INHALE QID PRN PRN Reason: dyspnea Apixaban (Apixaban 5 Mg Tablet) 5 mg PO BID [facility] [place] Last Admin: 03/29/24 08:36 Dose: 5 mg Documented By: CARMELO Atorvastatin Calcium (Atorvastatin Calcium 10 Mg Tablet) 10 mg PO DAILY [facility] [place] Last Admin: 03/29/24 08:36 Dose: 10 mg Documented By: CARMELO Calcium Carbonate (Calcium Carbonate 750 Mg Tab.Chew) 750 mg PO Q4H PRN PRN Reason: Heartburn Fentanyl (Fentanyl 100 Mcg Patch.Td72) 100 mcg TRANSDERMA Q3D@1800 [facility] [place] Last Admin: 03/28/24 17:30 Dose: 100 mcg Documented By: ADELA Fluticasone/Umeclidinium/Vilanterol (Fluticasone/Umeclidinium/Vilanterol 100/62.5/25 Blst.W.Dev) 1 puff INHALE RDAILY [facility] [place] Last Admin: 03/29/24 08:18 Dose: 1 puff Documented By: ROMMEL Magnesium Hydroxide (Milk Of Magnesia 30 Ml Oral.Susp) 30 ml PO DAILY PRN PRN Reason: Constipation Melatonin (Melatonin 3 Mg Tablet) 6 mg PO BEDTIME PRN PRN Reason: Insomnia Multivitamins/Vitamin C (Multivitamin Tablet) 1 tab PO DAILY [facility] [place] Last Admin: 03/29/24 08:35 Dose: 1 tab Documented By: CARMELO Oxycodone HCl (Oxycodone Hcl Immed Release 5 Mg Tablet) 5 mg PO Q8H PRN PRN Reason: Pain, Moderate(Pain Scale 4-6) Last Admin: 03/29/24 04:07 Dose: 5 mg Documented By: JANES Prednisone (Prednisone 10 Mg Tablet) 10 mg PO DAILY [facility] [place] Last Admin: 03/29/24 08:35 Dose: 10 mg Documented By: CARMELO Pregabalin (Pregabalin 75 Mg Capsule) 75 mg PO DAILY [facility] [place] Last Admin: 03/29/24 08:36 Dose: 75 mg Documented By: CARMELO Sodium Chloride (0.9 % Sodium Chloride Flush 3 Ml Syringe) 3 ml IVFLUSH QSHIFT [facility] [place] Last Admin: 03/29/24 08:42 Dose: 3 ml Documented By: CARMELO Vitamin D (Cholecalciferol (Vitamin D3) 25 Mcg Tablet) 25 mcg PO DAILY [facility] [place] Last Admin: 03/29/24 08:36 Dose: 25 mcg Documented By: CARMELO Labs 03/29/24 05:54 03/29/24 05:55 Labs: Laboratory Results - last 24 hr 03/28/24 03/28/24 03/28/24 09:53 09:56 12:12 MCV 103.5 H MCH 33.2 H MCHC 32.1 RDW 16.1 H Plt Count 490 H D MPV 10.5 Immature Gran % (Auto) 1.5 H Neut % (Auto) 75.5 H Lymph % (Auto) 13.1 L [place] % (Auto) 7.2 Eos % (Auto) 1.9 Baso % (Auto) 0.8 Lymph # (Auto) 1.0 L [place] # (Auto) 0.6 Eos # (Auto) 0.2 Baso # (Auto) 0.1 Abs Immat Gran (auto) 0.12 H Absolute Neuts (auto) 5.9 Absolute Nucleated RBC 0.000 Nucleated RBC % (auto) 0.0 PT 19.2 H D INR 1.6 H VBG pH 7.32 VBG pCO2 55 VBG pO2 39 VBG HCO3 29 H VBG O2 Saturation 48.0 VBG Base Excess 2.2 Anion Gap 20 Estim Creat Clear Calc 54.8 Estimated GFR 58 POC Glucose Random Glucose 237 H Lactic Acid 3.5 H* Lactic Acid F/U @ 2Hr 2.5 H* Lactic Acid F/U @ 4Hr Calcium 9.8 Magnesium 1.8 Total Bilirubin 0.4 AST 59 H ALT 77 H Alkaline Phosphatase 97 Troponin I High Sens 11.5 D B-Natriuretic Peptide 118 H Total Protein 8.0 Albumin 3.6 03/28/24 03/28/24 03/29/24 14:31 17:46 05:54 MCV 103.0 H MCH 34.1 H MCHC 33.1 RDW 16.1 H Plt Count 329 D MPV 10.4 Immature Gran % (Auto) Neut % (Auto) Lymph % (Auto) [place] % (Auto) Eos % (Auto) Baso % (Auto) Lymph # (Auto) [place] # (Auto) Eos # (Auto) Baso # (Auto) Abs Immat Gran (auto) Absolute Neuts (auto) Absolute Nucleated RBC 0.000 Nucleated RBC % (auto) 0.0 PT INR VBG pH VBG pCO2 VBG pO2 VBG HCO3 VBG O2 Saturation VBG Base Excess Anion Gap Estim Creat Clear Calc Estimated GFR POC Glucose 187 H Random Glucose Lactic Acid Lactic Acid F/U @ 2Hr Lactic Acid F/U @ 4Hr 3.0 H* Calcium Magnesium Total Bilirubin AST ALT Alkaline Phosphatase Troponin I High Sens B-Natriuretic Peptide Total Protein Albumin 03/29/24 05:55 MCV MCH MCHC RDW Plt Count MPV Immature Gran % (Auto) Neut % (Auto) Lymph % (Auto) [place] % (Auto) Eos % (Auto) Baso % (Auto) Lymph # (Auto) [place] # (Auto) Eos # (Auto) Baso # (Auto) Abs Immat Gran (auto) Absolute Neuts (auto) Absolute Nucleated RBC Nucleated RBC % (auto) PT INR VBG pH VBG pCO2 VBG pO2 VBG HCO3 VBG O2 Saturation VBG Base Excess Anion Gap 11 L Estim Creat Clear Calc 83.6 Estimated GFR > 60 POC Glucose Random Glucose 157 H Lactic Acid Lactic Acid F/U @ 2Hr Lactic Acid F/U @ 4Hr Calcium 8.7 D Magnesium Total Bilirubin AST ALT Alkaline Phosphatase Troponin I High Sens B-Natriuretic Peptide Total Protein Albumin Assessment and Plan (1) Pneumothorax: Status: Acute (2) Acute hypoxic respiratory failure: Status: Acute Plan 78 yo M with COPD and chronic resp. failure on 3L who presents with sudden onset shortness of breath. Found to have large right-sided pneumothorax, status post chest tube insertion. 1. Spontaneous pneumothorax Likely due to underlying COPD with blebs Status post chest tube with clinical improvement repet chest xray today.. Thoracic surgery consult 2.Acute on chronic respiratory failure with hypoxia due to above Currently on 4 L, wean to baseline as tolerated 3. COPD Not in acute exacerbation, will continue baseline medications 4. Paroxysmal AFib Continue anticoagulation We will hold rate control drugs today, given soft BP 5. Chronic back pain Continue fentanyl patch and prn oxy 6. Chronic anemia with acute drop since yesterday, repeat H/H, type and screen and consider transfusion Full code DVT prophylaxis, Eliquis need for inpatient: Large PTX with chest tube management Quality Stroke Does the patient have a stroke diagnosis?: No VTE Prior VTE?: No VTE Risk Level:: Medical - moderate - high VTE Device Contraindication: Treatment Not Indicated VTE Drug Contraindication: N/A - Med Ordered
[2024-03-29 09:34] LABS: Hematocrit 25.4 % (42.0-52.0); Hemoglobin 8.3 g/dl (14.0-18.0)
--- NOTE | 2024-03-29 09:39 | MHC.CM.PN ---
CM met with Patient at bedside and addressed IMM with him, providing Patient with the original and a copy has been placed on the chart. Patient lives alone in a house ,required no DME and was just beginning with [facility]. Home/resume/restart [facility] vs STR pending PT Eval is the tentative plan and CM has initiated and will follow for dc planning. HCP is [facility] and PCP is Dr. Nikita Rivera.
--- NOTE | 2024-03-29 13:30 | ECG_ITS ---
Test Reason : TACHY Blood Pressure : / mmHG Vent. Rate : 131 BPM Atrial Rate : 000 BPM P-R Int : 000 ms QRS Dur : 086 ms QT Int : 288 ms P-R-T Axes : 000 -25 125 degrees QTc Int : 425 ms Supraventricular tachycardia Low voltage QRS Nonspecific ST and T wave abnormality Abnormal ECG When compared with ECG of 28-MAR-2024 09:56, Supraventricular tachycardia has replaced Normal sinus rhythm with Premature atrial complexes QRS axis Shifted left Nonspecific T wave abnormality now evident in Inferior leads Referred By: Tierra Man Electronically Signed By:MELLISA RICCI MD
[2024-03-30] VITALS (8 sets, daily range): BP systolic 113–143; BP diastolic 58–72; PULSE 58–79; RESP 16–20; TEMP 36–36.8; O2SAT 93–98
[2024-03-30] MEDS: Fluticasone/Umeclidinium/Vilanterol 100/62.5/25 BLST.W.DEV 1 PUFF INHALE (07:29)
[2024-03-30] MEDS: Atorvastatin Calcium 10 MG TABLET PO (07:41)
[2024-03-30] MEDS: Multivitamin TABLET 1 TAB PO (07:42)
[2024-03-30] MEDS: oxyCODONE HCl Immed Release 5 MG TABLET PO ×2 (07:42→16:33)
[2024-03-30] MEDS: Cholecalciferol (Vitamin D3) 25 MCG TABLET PO (07:42)
[2024-03-30] MEDS: Pregabalin 75 MG CAPSULE PO (07:42)
[2024-03-30] MEDS: predniSONE 10 MG TABLET PO (07:43)
[2024-03-30] MEDS: 0.9 % Sodium Chloride Flush 3 ML SYRINGE IVFLUSH ×2 (07:43→18:35)
[2024-03-30 08:11] LABS: Hematocrit 25.2 % (42.0-52.0); Hemoglobin 8.1 g/dl (14.0-18.0); Mean Corpuscular HGB Conc 32.1 g/dl (31.0-36.0); Mean Corpuscular Hemoglobin 33.3 pg (27.0-33.0); Mean Corpuscular Volume 103.7 fL (80.0-98.0); Mean Platelet Volume 10.3 fL (9.4-12.4); Platelet Count 356 X10*3/uL (160-400); Red Blood Count 2.43 X10*6/uL (4.60-5.80); Red Cell Distribution Width 16.2 % (11.0-16.0); White Blood Count 6.5 X10*3/uL (4.8-10.8)
[2024-03-30] MEDS: Apixaban 5 MG TABLET PO ×2 (10:38→20:24)
--- NOTE | 2024-03-30 11:26 | P.PNIM_ITS ---
Subjective Subjective Date of Service: 03/30/24 Interval History: f/u right sided PTX and has chest tube interval history: No sob, feels better, chest tube on water seal Physical Exam 2 Vital Signs: Vital Signs: Last Vital Signs Temp 96.9 F 03/30/24 11:05 Pulse 68 03/30/24 11:05 Resp 20 03/30/24 11:05 BP 113/58 L 03/30/24 11:05 Pulse Ox 96 03/30/24 11:05 O2 Del Method Nasal Cannula 03/30/24 11:05 O2 Flow Rate 2.5 03/30/24 11:05 BMI result Body Mass Index 26.2 General: AO X 3, no acute distress Resp: CTA bilateral CVS: S1,S2,RRR GI: +BS, NT, no distention Skin: No rash Neuro: motor grossly intact Psych: appropriate affect Objective Data Active Medications Acetaminophen (Acetaminophen 325 Mg Tablet) 650 mg PO Q6H PRN PRN Reason: Pain, Mild (Pain Scale 1-3), fever or headache Albuterol Sulfate (Albuterol Sulfate 90 Mcg 8 Gm Inhaler) 2 puff INHALE Q4H PRN PRN Reason: Shortness Of Breath Or Wheezing Albuterol/Ipratropium (Albuterol/Iprat 2.5/0.5mg 3 Ml Ampul.Neb) 3 ml INHALE QID PRN PRN Reason: dyspnea Apixaban (Apixaban 5 Mg Tablet) 5 mg PO BID [facility] Last Admin: 03/29/24 21:47 Dose: 5 mg Documented By: JANES Atorvastatin Calcium (Atorvastatin Calcium 10 Mg Tablet) 10 mg PO DAILY [facility] Last Admin: 03/30/24 07:41 Dose: 10 mg Documented By: CARMELO Calcium Carbonate (Calcium Carbonate 750 Mg Tab.Chew) 750 mg PO Q4H PRN PRN Reason: Heartburn Fentanyl (Fentanyl 100 Mcg Patch.Td72) 100 mcg TRANSDERMA Q3D@1800 [facility] Last Admin: 03/28/24 17:30 Dose: 100 mcg Documented By: ADELA Fluticasone/Umeclidinium/Vilanterol (Fluticasone/Umeclidinium/Vilanterol 100/62.5/25 Blst.W.Dev) 1 puff INHALE RDAILY [facility] Last Admin: 03/30/24 07:29 Dose: 1 puff Documented By: ROMMEL Magnesium Hydroxide (Milk Of Magnesia 30 Ml Oral.Susp) 30 ml PO DAILY PRN PRN Reason: Constipation Melatonin (Melatonin 3 Mg Tablet) 6 mg PO BEDTIME PRN PRN Reason: Insomnia Multivitamins/Vitamin C (Multivitamin Tablet) 1 tab PO DAILY [facility] Last Admin: 03/30/24 07:42 Dose: 1 tab Documented By: CARMELO Oxycodone HCl (Oxycodone Hcl Immed Release 5 Mg Tablet) 5 mg PO Q6H PRN PRN Reason: Pain, Severe (Pain Scale 7-10) Prednisone (Prednisone 10 Mg Tablet) 10 mg PO DAILY [facility] Last Admin: 03/30/24 07:43 Dose: 10 mg Documented By: CARMELO Pregabalin (Pregabalin 75 Mg Capsule) 75 mg PO DAILY [facility] Last Admin: 03/30/24 07:42 Dose: 75 mg Documented By: CRAMELO Sodium Chloride (0.9 % Sodium Chloride Flush 3 Ml Syringe) 3 ml IVFLUSH QSHIFT [facility] Last Admin: 03/30/24 07:43 Dose: 3 ml Documented By: CARMELO Vitamin D (Cholecalciferol (Vitamin D3) 25 Mcg Tablet) 25 mcg PO DAILY [facility] Last Admin: 03/30/24 07:42 Dose: 25 mcg Documented By: CARMELO Labs 03/30/24 07:50 03/29/24 05:55 Labs: Laboratory Results - last 24 hr 03/29/24 03/29/24 03/30/24 00:54 09:51 07:50 MCV 103.7 H MCH 33.3 H MCHC 32.1 RDW 16.2 H Plt Count 356 MPV 10.3 Absolute Nucleated RBC 0.000 Nucleated RBC % (auto) 0.0 Influenza Type A (PCR) Cancelled Influenza Type B (PCR) Cancelled RSV RNA Qual (PCR) Cancelled SARS-CoV-2 RNA (RT-PCR) Cancelled Blood Type A Positive Antibody Screen NEGATIVE Crossmatch See Detail Microbiology Microbiology Results: Microbiology 03/28/24 10:13 Blood Culture - Preliminary Blood - Venous No growth after 24 hours. 03/28/24 09:54 Blood Culture - Preliminary Blood - Venous No growth after 24 hours. Assessment and Plan (1) Pneumothorax: Status: Acute (2) Acute hypoxic respiratory failure: Status: Acute Plan 78 yo M with COPD and chronic resp. failure on 3L who presents with sudden onset shortness of breath. Found to have large right-sided pneumothorax, status post chest tube insertion. 1. Spontaneous pneumothorax Likely due to underlying COPD with blebs Status post chest tube with clinical improvement repet chest xray today slight decrease in apical PTX chest tube on water seal for possible removal tomorrow 2.Acute on chronic respiratory failure with hypoxia due to above Currently on 4 L, wean to baseline as tolerated 3. COPD Not in acute exacerbation, will continue baseline medications 4. Paroxysmal AFib Continue anticoagulation We will hold rate control drugs today, given soft BP 5. Chronic back pain Continue fentanyl patch and prn oxy 6. Chronic anemia with acute drop, H/H stable, transfuse 1 unit Full code DVT prophylaxis, Eliquis need for inpatient: Large PTX with chest tube management Quality Stroke Does the patient have a stroke diagnosis?: No VTE Prior VTE?: No VTE Risk Level:: Medical - moderate - high VTE Device Contraindication: Treatment Not Indicated VTE Drug Contraindication: N/A - Med Ordered
[2024-03-31] VITALS (11 sets, daily range): BP systolic 120–166; BP diastolic 59–77; PULSE 64–107; RESP 16–22; TEMP 36.1–36.7; O2SAT 91–98
[2024-03-31] MEDS: oxyCODONE HCl Immed Release 5 MG TABLET PO ×4 (00:16→22:08)
[2024-03-31] MEDS: 0.9 % Sodium Chloride Flush 3 ML SYRINGE IVFLUSH ×3 (00:18→15:48)
[2024-03-31 06:32] LABS: Anion Gap 12 (12-20); Blood Urea Nitrogen 22 mg/dL (9-16); Calcium 9.3 mg/dL (8.4-10.2); Carbon Dioxide 33 mmol/L (22-29); Chloride 102 mmol/L (96-108); Creatinine Clr Calc Pharmacy 82.6; Estimated Glomerular Filt Rate > 60; Glucose Random 94 mg/dL (60-115); Potassium 4.6 mmol/L (3.3-5.1); Sodium 142 mmol/L (135-145)
[2024-03-31 06:45] LABS: Mean Corpuscular HGB Conc 32.3 g/dl (31.0-36.0); Mean Corpuscular Hemoglobin 33.3 pg (27.0-33.0); Mean Corpuscular Volume 103.3 fL (80.0-98.0); Mean Platelet Volume 10.1 fL (9.4-12.4); Platelet Count 379 X10*3/uL (160-400); Red Cell Distribution Width 17.1 % (11.0-16.0); White Blood Count 6.9 X10*3/uL (4.8-10.8)
--- NOTE | 2024-03-31 06:55 | HO.PM.IMPN ---
Subjective Subjective Date of Service: 04/03/24 Interval History: f/u right sided PTX and has chest tube interval history: CT on water seal, PTX is larger this morning Physical Exam Vital Signs: Vital Signs: Last Vital Signs Temp 97.5 F 03/31/24 04:06 Pulse 68 03/31/24 04:06 Resp 20 03/31/24 04:06 BP 146/76 H 03/31/24 04:06 Pulse Ox 91 L 03/31/24 04:06 O2 Del Method Nasal Cannula 03/31/24 04:06 O2 Flow Rate 5 03/31/24 04:06 BMI result Body Mass Index 26.2 Const: Other: Constitutional - Awake and Alert, No apparent distress Eyes - PERRLA, EOMI Cardiovascular - S1S2, RRR, No edema Respiratory - R lung diminished sounds; LL clear; trachea midline Gastrointestinal - NT / ND; +BS; No rebound or guarding - No CVA tenderness Extremities - no calf tenderness bilaterally, no swelling Musculoskeletal - Normal inspection, normal ROM Skin - Warm/Dry Neurological - Alert & oriented x3, No focal deficit Psychological - Appropriate affect Objective Data Active Medications Acetaminophen (Acetaminophen 325 Mg Tablet) 650 mg PO Q6H PRN PRN Reason: Pain, Mild (Pain Scale 1-3), fever or headache Albuterol Sulfate (Albuterol Sulfate 90 Mcg 8 Gm Inhaler) 2 puff INHALE Q4H PRN PRN Reason: Shortness Of Breath Or Wheezing Albuterol/Ipratropium (Albuterol/Iprat 2.5/0.5mg 3 Ml Ampul.Neb) 3 ml INHALE QID PRN PRN Reason: dyspnea Apixaban (Apixaban 5 Mg Tablet) 5 mg PO BID [facility] Last Admin: 03/30/24 20:24 Dose: 5 mg Documented By: NICKI Atorvastatin Calcium (Atorvastatin Calcium 10 Mg Tablet) 10 mg PO DAILY [facility] Last Admin: 03/30/24 07:41 Dose: 10 mg Documented By: CARMELO Calcium Carbonate (Calcium Carbonate 750 Mg Tab.Chew) 750 mg PO Q4H PRN PRN Reason: Heartburn Fentanyl (Fentanyl 100 Mcg Patch.Td72) 100 mcg TRANSDERMA Q3D@1800 [facility] Last Admin: 03/28/24 17:30 Dose: 100 mcg Documented By: ADELA Fluticasone/Umeclidinium/Vilanterol (Fluticasone/Umeclidinium/Vilanterol 100/62.5/25 Blst.W.Dev) 1 puff INHALE RDAILY [facility] Last Admin: 03/30/24 07:29 Dose: 1 puff Documented By: ROMMEL Magnesium Hydroxide (Milk Of Magnesia 30 Ml Oral.Susp) 30 ml PO DAILY PRN PRN Reason: Constipation Melatonin (Melatonin 3 Mg Tablet) 6 mg PO BEDTIME PRN PRN Reason: Insomnia Multivitamins/Vitamin C (Multivitamin Tablet) 1 tab PO DAILY [facility] Last Admin: 03/30/24 07:42 Dose: 1 tab Documented By: CARMELO Oxycodone HCl (Oxycodone Hcl Immed Release 5 Mg Tablet) 5 mg PO Q6H PRN PRN Reason: Pain, Severe (Pain Scale 7-10) Last Admin: 03/31/24 00:16 Dose: 5 mg Documented By: NICKI Prednisone (Prednisone 10 Mg Tablet) 10 mg PO DAILY [facility] Last Admin: 03/30/24 07:43 Dose: 10 mg Documented By: CARMELO Pregabalin (Pregabalin 75 Mg Capsule) 75 mg PO DAILY [facility] Last Admin: 03/30/24 07:42 Dose: 75 mg Documented By: CARMELO Sodium Chloride (0.9 % Sodium Chloride Flush 3 Ml Syringe) 3 ml IVFLUSH QSHIFT [facility] Last Admin: 03/31/24 00:18 Dose: 3 ml Documented By: NICKI Vitamin D (Cholecalciferol (Vitamin D3) 25 Mcg Tablet) 25 mcg PO DAILY [facility] Last Admin: 03/30/24 07:42 Dose: 25 mcg Documented By: CARMELO Labs 04/02/24 05:46 04/02/24 05:46 Labs: Laboratory Results - last 24 hr 03/29/24 03/30/24 03/31/24 09:51 07:50 06:02 MCV 103.7 H 103.3 H MCH 33.3 H 33.3 H MCHC 32.1 32.3 RDW 16.2 H 17.1 H Plt Count 356 379 MPV 10.3 10.1 Absolute Nucleated RBC 0.000 0.000 Nucleated RBC % (auto) 0.0 0.0 Anion Gap 12 Estim Creat Clear Calc 82.6 Estimated GFR > 60 Random Glucose 94 Calcium 9.3 D Blood Type A Positive Antibody Screen NEGATIVE Crossmatch See Detail Microbiology Microbiology Results: Microbiology 03/28/24 10:13 Blood Culture - Preliminary Blood - Venous No growth after 48 hours. 03/28/24 09:54 Blood Culture - Preliminary Blood - Venous No growth after 48 hours. Assessment and Plan (1) Pneumothorax: Status: Acute Plan 78 yo M with COPD and chronic resp. failure on 3L who presents with sudden onset shortness of breath. Found to have large right-sided pneumothorax, status post chest tube insertion. 1. Spontaneous pneumothorax Likely due to underlying COPD with blebs Status post chest tube with clinical improvement repet chest xray today shows increased size of PTX Thoracic surgery following 2.Acute on chronic respiratory failure with hypoxia due to above Currently on 4 L, wean to baseline as tolerated 3. COPD Not in acute exacerbation, will continue baseline medications 4. Paroxysmal AFib Continue anticoagulation We will hold rate control drugs today, given soft BP 5. Chronic back pain Continue fentanyl patch and prn oxy 6. Chronic anemia with acute drop, H/H stable, transfuse 1 unit Full code DVT prophylaxis, Eliquis need for inpatient: Large PTX with chest tube management Quality Stroke Does the patient have a stroke diagnosis?: No VTE Prior VTE?: No VTE Risk Level:: Medical - moderate - high VTE Device Contraindication: Treatment Not Indicated VTE Drug Contraindication: N/A - Med Ordered
[2024-03-31] MEDS: Fluticasone/Umeclidinium/Vilanterol 100/62.5/25 BLST.W.DEV 1 PUFF INHALE (07:49)
[2024-03-31] MEDS: predniSONE 10 MG TABLET PO (08:53)
[2024-03-31] MEDS: Multivitamin TABLET 1 TAB PO (08:53)
[2024-03-31] MEDS: Atorvastatin Calcium 10 MG TABLET PO (08:53)
[2024-03-31] MEDS: Cholecalciferol (Vitamin D3) 25 MCG TABLET PO (08:53)
[2024-03-31] MEDS: Apixaban 5 MG TABLET PO ×2 (08:53→21:27)
[2024-03-31] MEDS: Pregabalin 75 MG CAPSULE PO (08:53)
[2024-03-31] MEDS: Albuterol/Iprat 2.5/0.5MG 3 ML AMPUL.NEB INHALE ×3 (09:05→19:16)
--- NOTE | 2024-03-31 10:41 | MHC.CM.PN ---
Per ROUNDS discussion, Patient is not yet medically cleared for dc (chest tube); home/resume vna is the goal and CM will continue to follow.
[2024-03-31] MEDS: Milk of Magnesia 30 ML ORAL.SUSP PO (15:47)
--- NOTE | 2024-03-31 17:35 | P.PNTS_ITS ---
Subjective Subjective Date of Service: 04/01/24 Interval history: Patient has no new respiratory issues or complaints. Unfortunately he was laying on his chest tube which I think resulted in his lung dropping 1 placed on water seal. A.m. chest x-ray shows recurrent small pneumothorax and chest tube was put back on suction. I reviewed with the patient as well as with his nurse the importance of not kinking were lying on his chest tube. Physical Exam Vital Signs: Vital Signs: Last Vital Signs Temp 97.7 F 03/31/24 15:37 Pulse 85 03/31/24 15:37 Resp 18 03/31/24 15:37 BP 138/65 03/31/24 15:37 Pulse Ox 93 03/31/24 15:37 O2 Del Method Nasal Cannula 03/31/24 15:37 O2 Flow Rate 2.5 03/31/24 15:37 BMI result Body Mass Index 26.2 Chest: Other: Chest tube dressing clean dry and intact. No air leak demonstrated and Pleur- evac with coughing. Procedures Date of Service Date of Service: 04/01/24 Progress Note: A&P Assessment and plan (1) Pneumothorax: Status: Acute (2) Acute hypoxic respiratory failure: Status: Acute Plan CT placed back on suction suction. Assure patient is not lying on the chest tube. A.m. chest x-ray tomorrow. If that looks good, we will once again attempt water seal tomorrow. Time Spent With Patient Time: Total time managing care of this patient today ____ minutes. Quality Stroke Does the patient have a stroke diagnosis?: No VTE Prior VTE?: No VTE Risk Level:: Medical - moderate - high VTE Device Contraindication: Treatment Not Indicated VTE Drug Contraindication: N/A - Med Ordered
[2024-03-31] MEDS: fentaNYL 100 MCG PATCH.TD72 TRANSDERMA (18:22)
--- NOTE | 2024-03-31 19:10 | PC.NURSE ---
noted pt having ST 170s-180s. pt was using bedside commode and got winded, sob, denied chest pain. increased O2 sup fr 2L to 4L. Resp called, O2 maintained at 88-90%. MD called and notified about the event. report given to oncomming FARHAD. pt is now recovered by himself, HR 110s and O2 92% on 4L. will cont to monitor
[2024-03-31] MEDS: Melatonin 3 MG TABLET 6 MG PO (21:26)
[2024-03-31] MEDS: Tamsulosin HCL 0.4 MG CAPSULE PO (21:26)
[2024-03-31] MEDS: Sennosides 8.6 MG TABLET PO (21:26)
[2024-03-31] MEDS: Docusate Sodium 100 MG CAPSULE PO (21:27)
[2024-04-01] VITALS (11 sets, daily range): BP systolic 108–140; BP diastolic 55–67; PULSE 63–105; RESP 14–20; TEMP 36.1–36.5; O2SAT 92–99
[2024-04-01] MEDS: oxyCODONE HCl Immed Release 5 MG TABLET PO ×2 (03:56→17:29)
[2024-04-01] MEDS: 0.9 % Sodium Chloride Flush 3 ML SYRINGE IVFLUSH ×3 (04:03→17:26)
[2024-04-01] MEDS: Morphine Sulfate 2 MG/ML CARTRIDGE IVPUSH ×3 (04:17→20:11)
[2024-04-01 06:26] LABS: Anion Gap 13 (12-20); Blood Urea Nitrogen 15 mg/dL (9-16); Calcium 9.2 mg/dL (8.4-10.2); Carbon Dioxide 35 mmol/L (22-29); Chloride 96 mmol/L (96-108); Creatinine Clr Calc Pharmacy 77.8; Estimated Glomerular Filt Rate > 60; Glucose Random 115 mg/dL (60-115); Potassium 4.5 mmol/L (3.3-5.1); Sodium 139 mmol/L (135-145)
[2024-04-01 06:53] LABS: Appearance Urine Clear; Color Urine Yellow; Glucose Urine UA Negative (Negative); Leukocyte Esterase Urine Negative (Negative); Nitrite Urine Negative (Negative); Specific Gravity - Urine 1.015 (1.005-1.025); Urine Blood Negative (Negative); Urine Ketones Negative (Negative); Urine Protein Negative (Neg-Trace)
[2024-04-01 06:58] LABS: Bacteria Urine None Seen (None Seen); Hyaline Casts Urine 0-2 /LPF (0-2); RBC Urine 0-2 /HPF (0-2); Squamous Epithelial Cell Urine 0-2 /HPF (0-2); WBC Urine 0-5 /HPF (0-5)
[2024-04-01] MEDS: Fluticasone/Umeclidinium/Vilanterol 100/62.5/25 BLST.W.DEV 1 PUFF INHALE (07:45)
[2024-04-01] MEDS: Albuterol/Iprat 2.5/0.5MG 3 ML AMPUL.NEB INHALE ×4 (07:47→19:54)
[2024-04-01] MEDS: Pregabalin 75 MG CAPSULE PO (08:51)
[2024-04-01] MEDS: Apixaban 5 MG TABLET PO ×2 (08:51→20:10)
[2024-04-01] MEDS: Tamsulosin HCL 0.4 MG CAPSULE PO (08:52)
[2024-04-01] MEDS: predniSONE 10 MG TABLET PO (08:52)
[2024-04-01] MEDS: Multivitamin TABLET 1 TAB PO (08:52)
[2024-04-01] MEDS: Atorvastatin Calcium 10 MG TABLET PO (08:52)
[2024-04-01] MEDS: Cholecalciferol (Vitamin D3) 25 MCG TABLET PO (08:52)
--- NOTE | 2024-04-01 12:40 | P.PNIM_ITS ---
Subjective Subjective Date of Service: 04/01/24 Interval History: Seen and examined this morning Follow-up for pneumothorax, right chest tube Patient reports pain at chest tube site overnight and with deep inspiration Physical Exam 2 Vital Signs: Vital Signs: Last Vital Signs Temp 97.2 F 04/01/24 11:22 Pulse 105 H 04/01/24 11:22 Resp 20 04/01/24 11:22 BP 115/57 L 04/01/24 11:22 Pulse Ox 96 04/01/24 11:22 O2 Del Method Nasal Cannula 04/01/24 11:22 O2 Flow Rate 4 04/01/24 11:22 BMI result Body Mass Index 26.2 Const: General: cooperative, alert and awake Nutritional Appearance: thin Orientation/consciousness: patient oriented x3 Resp: Other: right chest tube, no significant up Effort & Inspection: normal respiratory effort, able to speak in complete sentences, no respiratory distress and no use of accessory muscles Cardio: Rate: regular rate GI: Inspection: No distended Palpation (GI): Soft to palpation and nontender Neuro: General: patient oriented x3, moves all extremities and CN's II-XI intact bilaterally Extrem: General: Yes no pedal edema Objective Data Active Medications Acetaminophen (Acetaminophen 325 Mg Tablet) 650 mg PO Q6H PRN PRN Reason: Pain, Mild (Pain Scale 1-3), fever or headache Albuterol Sulfate (Albuterol Sulfate 90 Mcg 8 Gm Inhaler) 2 puff INHALE Q4H PRN PRN Reason: Shortness Of Breath Or Wheezing Albuterol/Ipratropium (Albuterol/Iprat 2.5/0.5mg 3 Ml Ampul.Neb) 3 ml INHALE QID PRN PRN Reason: dyspnea Albuterol/Ipratropium (Albuterol/Iprat 2.5/0.5mg 3 Ml Ampul.Neb) 3 ml INHALE RQ4H WHILE AWAKE [facility] Last Admin: 04/01/24 11:12 Dose: 3 ml Documented By: DIANA Apixaban (Apixaban 5 Mg Tablet) 5 mg PO BID [facility] Last Admin: 04/01/24 08:51 Dose: 5 mg Documented By: GREGORIO Atorvastatin Calcium (Atorvastatin Calcium 10 Mg Tablet) 10 mg PO DAILY [facility] Last Admin: 04/01/24 08:52 Dose: 10 mg Documented By: GREGORIO Calcium Carbonate (Calcium Carbonate 750 Mg Tab.Chew) 750 mg PO Q4H PRN PRN Reason: Heartburn Docusate Sodium (Docusate Sodium 100 Mg Capsule) 100 mg PO BID [facility] Last Admin: 04/01/24 08:51 Dose: Not Given Documented By: GREGORIO Non-Admin Reason: Patient Refused Fentanyl (Fentanyl 100 Mcg Patch.Td72) 100 mcg TRANSDERMA Q3D@1800 [facility] Last Admin: 03/31/24 18:22 Dose: 100 mcg Documented By: KAVON Fluticasone/Umeclidinium/Vilanterol (Fluticasone/Umeclidinium/Vilanterol 100/62.5/25 Blst.W.Dev) 1 puff INHALE RDAILY [facility] Last Admin: 04/01/24 07:45 Dose: 1 puff Documented By: DIANA Magnesium Hydroxide (Milk Of Magnesia 30 Ml Oral.Susp) 30 ml PO DAILY PRN PRN Reason: Constipation Last Admin: 03/31/24 15:47 Dose: 30 ml Documented By: KAVON Melatonin (Melatonin 3 Mg Tablet) 6 mg PO BEDTIME PRN PRN Reason: Insomnia Last Admin: 03/31/24 21:26 Dose: 6 mg Documented By: NICKI Morphine Sulfate (Morphine Sulfate 2 Mg/Ml Cartridge) 2 mg IVPUSH Q6H PRN; Protocol PRN Reason: Pain, Severe (Pain Scale 7-10) Last Admin: 04/01/24 04:17 Dose: 2 mg Documented By: NICKI Multivitamins/Vitamin C (Multivitamin Tablet) 1 tab PO DAILY [facility] Last Admin: 04/01/24 08:52 Dose: 1 tab Documented By: GREGORIO Oxycodone HCl (Oxycodone Hcl Immed Release 5 Mg Tablet) 5 mg PO Q6H PRN PRN Reason: Pain, Severe (Pain Scale 7-10) Last Admin: 04/01/24 03:56 Dose: 5 mg Documented By: NICKI Prednisone (Prednisone 10 Mg Tablet) 10 mg PO DAILY [facility] Last Admin: 04/01/24 08:52 Dose: 10 mg Documented By: GREGORIO Pregabalin (Pregabalin 75 Mg Capsule) 75 mg PO DAILY [facility] Last Admin: 08/08/24 08:51 Dose: 75 mg Documented By: GREGORIO Senna (Sennosides 8.6 Mg Tablet) 8.6 mg PO DAILY [facility] Last Admin: 04/01/24 08:52 Dose: Not Given Documented By: GREGORIO Non-Admin Reason: Patient Refused Sodium Chloride (0.9 % Sodium Chloride Flush 3 Ml Syringe) 3 ml IVFLUSH QSHIFT [facility] Last Admin: 04/01/24 08:52 Dose: 3 ml Documented By: GREGORIO Tamsulosin HCl (Tamsulosin Hcl 0.4 Mg Capsule) 0.4 mg PO DAILY [facility] Last Admin: 04/01/24 08:52 Dose: 0.4 mg Documented By: GREGORIO Vitamin D (Cholecalciferol (Vitamin D3) 25 Mcg Tablet) 25 mcg PO DAILY [facility] Last Admin: 04/01/24 08:52 Dose: 25 mcg Documented By: GREGORIO Labs 03/31/24 06:02 04/01/24 05:38 Labs: Laboratory Results - last 24 hr 04/01/24 04/01/24 04:00 05:38 Anion Gap 13 Estim Creat Clear Calc 77.8 Estimated GFR > 60 Random Glucose 115 Calcium 9.2 Urine Color Yellow Urine Appearance Clear Urine pH 6.0 Ur Specific [place] 1.015 Urine Protein Negative Urine Glucose (UA) Negative Urine Ketones Negative Urine Blood Negative Urine Nitrite Negative Ur Leukocyte Esterase Negative Urine RBC 0-2 Urine WBC 0-5 Ur Squamous Epith Cells 0-2 Urine Bacteria None Seen Hyaline Casts 0-2 Assessment and Plan (1) Pneumothorax: Status: Acute (2) Acute hypoxic respiratory failure: Status: Acute Plan 78 yo M with COPD and chronic resp. failure on 3L who presents with sudden onset shortness of breath. Found to have large right-sided pneumothorax, status post chest tube insertion. 1. Spontaneous pneumothorax Likely due to underlying COPD with blebs Status post chest tube with clinical improvement repeat chest xray today shows improvement of PTX plan to place to water seal, repeat chest x-ray in a.m., if stable remove chest tube tomorrow Thoracic surgery following 2.Acute on chronic respiratory failure with hypoxia due to above Currently on 4 L, wean to baseline as tolerated 3. COPD Not in acute exacerbation, will continue baseline medications 4. Paroxysmal AFib Continue anticoagulation with Eliquis resume metoprolol 5. Chronic back pain Continue fentanyl patch and prn oxy 6. Chronic anemia with acute drop, H/H stable, transfuse 1 unit H/H improved Full code DVT prophylaxis, Eliquis need for inpatient: Large PTX with chest tube management Quality Stroke Does the patient have a stroke diagnosis?: No VTE Prior VTE?: No VTE Risk Level:: Medical - moderate - high VTE Device Contraindication: Treatment Not Indicated VTE Drug Contraindication: N/A - Med Ordered
[2024-04-01] MEDS: Metoprolol Tartrate 50 MG TABLET PO (20:10)
[2024-04-01] MEDS: Docusate Sodium 100 MG CAPSULE PO (20:10)
[2024-04-02] VITALS (12 sets, daily range): BP systolic 108–128; BP diastolic 54–59; PULSE 69–110; RESP 16–20; TEMP 36.1–37.1; O2SAT 88–99
[2024-04-02] MEDS: 0.9 % Sodium Chloride Flush 3 ML SYRINGE IVFLUSH ×4 (02:09→20:25)
[2024-04-02] MEDS: Morphine Sulfate 2 MG/ML CARTRIDGE IVPUSH ×2 (02:09→08:28)
[2024-04-02] MEDS: oxyCODONE HCl Immed Release 5 MG TABLET PO ×3 (05:04→20:25)
[2024-04-02 06:36] LABS: Anion Gap 14 (12-20); Blood Urea Nitrogen 16 mg/dL (9-16); Calcium 9.4 mg/dL (8.4-10.2); Carbon Dioxide 31 mmol/L (22-29); Chloride 97 mmol/L (96-108); Creatinine Clr Calc Pharmacy 84.7; Estimated Glomerular Filt Rate > 60; Glucose Random 103 mg/dL (60-115); Potassium 4.2 mmol/L (3.3-5.1); Sodium 138 mmol/L (135-145)
[2024-04-02] MEDS: Albuterol/Iprat 2.5/0.5MG 3 ML AMPUL.NEB INHALE ×4 (07:54→19:53)
[2024-04-02] MEDS: Fluticasone/Umeclidinium/Vilanterol 100/62.5/25 BLST.W.DEV 1 PUFF INHALE (07:57)
[2024-04-02] MEDS: Tamsulosin HCL 0.4 MG CAPSULE PO (08:24)
[2024-04-02] MEDS: Apixaban 5 MG TABLET PO ×2 (08:25→20:24)
[2024-04-02] MEDS: Atorvastatin Calcium 10 MG TABLET PO (08:25)
[2024-04-02] MEDS: Cholecalciferol (Vitamin D3) 25 MCG TABLET PO (08:25)
[2024-04-02] MEDS: predniSONE 10 MG TABLET PO (08:25)
[2024-04-02] MEDS: Multivitamin TABLET 1 TAB PO (08:25)
[2024-04-02] MEDS: Pregabalin 75 MG CAPSULE PO (08:27)
[2024-04-02] MEDS: Metoprolol Tartrate 50 MG TABLET PO ×2 (09:09→20:24)
[2024-04-02 11:05] LABS: MANUAL DIFF FLAG NO
--- NOTE | 2024-04-02 11:13 | MHC.CM.PN ---
Per ROUNDS discussion, Patient still has a chest tube and is not yet medically cleared for dc; home/resume services is the goal and CM will continue to follow.
--- NOTE | 2024-04-02 11:28 | P.PNIM_ITS ---
Subjective Subjective Date of Service: 04/02/24 Interval History: Seen and examined this morning Follow-up for pneumothorax reporting pain at site of chest tube Review of Systems Review of Systems: Yes all other systems are reviewed and are negative Constitutional Constitutional: Denies chills and Denies fever(s) Cardiovascular Cardiovascular: Denies chest pain and Denies palpitations Respiratory Respiratory: Denies cough Gastrointestinal Gastrointestinal: Denies abdominal pain, Denies nausea and Denies vomiting Endocrine Endocrine: Denies palpitations Physical Exam 2 Vital Signs: Vital Signs: Last Vital Signs Temp 98.0 F 04/02/24 08:00 Pulse 84 04/02/24 11:14 Resp 16 04/02/24 11:14 BP 124/59 L 04/02/24 08:00 Pulse Ox 93 04/02/24 08:00 O2 Del Method Room Air 04/02/24 08:00 O2 Flow Rate 3 04/02/24 03:18 BMI result Body Mass Index 26.2 Const: General: cooperative, alert and awake Nutritional Appearance: thin Orientation/consciousness: patient oriented x3 Resp: Other: right chest tube, no significant output Effort & Inspection: normal respiratory effort, able to speak in complete sentences, no respiratory distress and no use of accessory muscles Cardio: Rate: regular rate GI: Inspection: No distended Palpation (GI): Soft to palpation and nontender Neuro: General: patient oriented x3, moves all extremities and CN's II-XI intact bilaterally Extrem: General: Yes no pedal edema Objective Data Active Medications Acetaminophen (Acetaminophen 325 Mg Tablet) 650 mg PO Q6H PRN PRN Reason: Pain, Mild (Pain Scale 1-3), fever or headache Albuterol Sulfate (Albuterol Sulfate 90 Mcg 8 Gm Inhaler) 2 puff INHALE Q4H PRN PRN Reason: Shortness Of Breath Or Wheezing Albuterol/Ipratropium (Albuterol/Iprat 2.5/0.5mg 3 Ml Ampul.Neb) 3 ml INHALE QID PRN PRN Reason: dyspnea Albuterol/Ipratropium (Albuterol/Iprat 2.5/0.5mg 3 Ml Ampul.Neb) 3 ml INHALE RQ4H WHILE AWAKE [facility] Last Admin: 04/02/24 11:12 Dose: 3 ml Documented By: JUANI Apixaban (Apixaban 5 Mg Tablet) 5 mg PO BID [facility] Last Admin: 04/02/24 08:25 Dose: 5 mg Documented By: GREGORIO Atorvastatin Calcium (Atorvastatin Calcium 10 Mg Tablet) 10 mg PO DAILY [facility] Last Admin: 04/02/24 08:25 Dose: 10 mg Documented By: GREGORIO Calcium Carbonate (Calcium Carbonate 750 Mg Tab.Chew) 750 mg PO Q4H PRN PRN Reason: Heartburn Docusate Sodium (Docusate Sodium 100 Mg Capsule) 100 mg PO BID [facility] Last Admin: 04/02/24 09:02 Dose: Not Given Documented By: GREGORIO Non-Admin Reason: Patient Refused Fentanyl (Fentanyl 100 Mcg Patch.Td72) 100 mcg TRANSDERMA Q3D@1800 [facility] Last Admin: 03/31/24 18:22 Dose: 100 mcg Documented By: KAVON Fluticasone/Umeclidinium/Vilanterol (Fluticasone/Umeclidinium/Vilanterol 100/62.5/25 Blst.W.Dev) 1 puff INHALE RDAILY [facility] Last Admin: 04/02/24 07:57 Dose: 1 puff Documented By: JUANI Magnesium Hydroxide (Milk Of Magnesia 30 Ml Oral.Susp) 30 ml PO DAILY PRN PRN Reason: Constipation Last Admin: 03/31/24 15:47 Dose: 30 ml Documented By: KAVON Melatonin (Melatonin 3 Mg Tablet) 6 mg PO BEDTIME PRN PRN Reason: Insomnia Last Admin: 03/31/24 21:26 Dose: 6 mg Documented By: NICKI Metoprolol Tartrate (Metoprolol Tartrate 50 Mg Tablet) 50 mg PO BID [facility]; Protocol Last Admin: 04/02/24 09:09 Dose: 50 mg Documented By: GREGORIO Morphine Sulfate (Morphine Sulfate 2 Mg/Ml Cartridge) 2 mg IVPUSH Q4H PRN; Protocol PRN Reason: Pain, Severe (Pain Scale 7-10) Multivitamins/Vitamin C (Multivitamin Tablet) 1 tab PO DAILY [facility] Last Admin: 04/02/24 08:25 Dose: 1 tab Documented By: GREGORIO Prednisone (Prednisone 10 Mg Tablet) 10 mg PO DAILY [facility] Last Admin: 04/02/24 08:25 Dose: 10 mg Documented By: GREGORIO Pregabalin (Pregabalin 75 Mg Capsule) 75 mg PO DAILY [facility] Last Admin: 04/02/24 08:27 Dose: 75 mg Documented By: GREGORIO Senna (Sennosides 8.6 Mg Tablet) 8.6 mg PO DAILY [facility] Last Admin: 04/02/24 09:02 Dose: Not Given Documented By: GREGORIO Non-Admin Reason: Patient Refused Sodium Chloride (0.9 % Sodium Chloride Flush 3 Ml Syringe) 3 ml IVFLUSH QSHIFT [facility] Last Admin: 04/02/24 09:09 Dose: 3 ml Documented By: GREGORIO Tamsulosin HCl (Tamsulosin Hcl 0.4 Mg Capsule) 0.4 mg PO DAILY [facility] Last Admin: 04/02/24 08:24 Dose: 0.4 mg Documented By: GREGORIO Vitamin D (Cholecalciferol (Vitamin D3) 25 Mcg Tablet) 25 mcg PO DAILY [facility] Last Admin: 04/02/24 08:25 Dose: 25 mcg Documented By: GREGORIO Labs 03/31/24 06:02 04/02/24 05:46 Labs: Laboratory Results - last 24 hr 04/02/24 05:46 Hold Purple Top SEE NOTE Anion Gap 14 Estim Creat Clear Calc 84.7 Estimated GFR > 60 Random Glucose 103 Calcium 9.4 Assessment and Plan (1) Pneumothorax: Status: Acute (2) Acute hypoxic respiratory failure: Status: Acute Plan 78 yo M with COPD and chronic resp. failure on 3L who presents with sudden onset shortness of breath. Found to have large right-sided pneumothorax, status post chest tube insertion. 1. Spontaneous pneumothorax Likely due to underlying COPD with blebs Status post chest tube with clinical improvement repeat chest xray today shows improvement of PTX placed to water seal, repeat chest x-ray in a.m stable, possible removal of chest tube today Thoracic surgery following up-titrate pain meds for better control 2.Acute on chronic respiratory failure with hypoxia due to above Currently on 3 L, wean to baseline as tolerated 3. COPD Not in acute exacerbation, will continue baseline medications 4. Paroxysmal AFib Continue anticoagulation with Eliquis resume metoprolol 5. Chronic back pain Continue fentanyl patch and prn oxy 6. Chronic anemia with acute drop, H/H stable, transfuse 1 unit H/H improved with transfusion follow up CBC pending Full code DVT prophylaxis, Eliquis need for inpatient: Large PTX with chest tube management Quality Stroke Does the patient have a stroke diagnosis?: No VTE Prior VTE?: No VTE Risk Level:: Medical - moderate - high VTE Device Contraindication: Treatment Not Indicated VTE Drug Contraindication: N/A - Med Ordered
[2024-04-02 11:58] LABS: Basophils Absolute Auto 0.1 X10*3/uL (0.0-0.2); Basophils Percent Auto 1.2 % (0-2); Eosinophils Absolute Auto 0.7 X10*3/uL (0.0-0.4); Eosinophils Percent Auto 12.3 % (0-4); Hemoglobin 9.9 g/dl (14.0-18.0); Imm Gran Abs Auto 0.19 X10*3/uL (0.00-0.03); Imm Gran Pct Auto 3.2 % (0.0-0.4); Lymphocytes Absolute Auto 0.9 X10*3/uL (1.2-4.9); Lymphocytes Percent Auto 15.5 % (20-40); Mean Corpuscular HGB Conc 31.9 g/dl (31.0-36.0); Mean Corpuscular Hemoglobin 33.6 pg (27.0-33.0); Mean Corpuscular Volume 105.1 fL (80.0-98.0); Mean Platelet Volume 10.3 fL (9.4-12.4); Monocytes Absolute Auto 0.7 X10*3/uL (0.1-1.2); Monocytes Percent Auto 11.3 % (2-11); NRBC Pct Auto 0.3 /100WBC (0.0-0.2); Neutrophils Absolute Auto 3.4 x10*3/uL (2.0-8.3); Neutrophils Percent Auto 56.5 % (45-73); Platelet Count 335 X10*3/uL (160-400); Red Blood Count 2.95 X10*6/uL (4.60-5.80); Red Cell Distribution Width 16.5 % (11.0-16.0); White Blood Count 5.9 X10*3/uL (4.8-10.8)
--- NOTE | 2024-04-02 13:23 | PM.PNTS ---
Subjective Subjective Date of Service: 04/02/24 Interval history: No new respiratory issues. Chest tube Pleur-evac demonstrates no air leak and no output. And chest x-ray essentially within normal limits. Physical Exam Vital Signs: Vital Signs: Last Vital Signs Temp 98.7 F 04/02/24 12:00 Pulse 81 04/02/24 12:00 Resp 20 04/02/24 12:00 BP 113/59 L 04/02/24 12:00 Pulse Ox 90 L 04/02/24 12:00 O2 Del Method Nasal Cannula 04/02/24 12:00 O2 Flow Rate 3 04/02/24 12:00 BMI result Body Mass Index 26.2 Chest: Other: Chest tube uneventfully removed with occlusive dressing placed. Well tolerated. Procedures Date of Service Date of Service: 04/02/24 Progress Note: A&P Assessment and plan (1) Pneumothorax: Status: Acute Plan Postprocedure film pending. Time Spent With Patient Time: Total time managing care of this patient today ____ minutes. Quality Stroke Does the patient have a stroke diagnosis?: No VTE Prior VTE?: No VTE Risk Level:: Medical - moderate - high VTE Device Contraindication: Treatment Not Indicated VTE Drug Contraindication: N/A - Med Ordered
--- NOTE | 2024-04-02 15:14 | MHC.CM.PN ---
PT is recommending Inpatient Pulmonary Rehab; CM will follow.
[2024-04-03] MEDS: Fluticasone/Umeclidinium/Vilanterol 100/62.5/25 BLST.W.DEV 1 PUFF INHALE (07:28)
[2024-04-03] MEDS: Albuterol/Iprat 2.5/0.5MG 3 ML AMPUL.NEB INHALE ×2 (07:28→11:26)
[2024-04-03 07:30] VITALS: PULSE 86; RESP 20; O2SAT 92
[2024-04-03 09:10] VITALS: BP 132/63; PULSE 104; RESP 18; TEMP 36.2; O2SAT 90
[2024-04-03] MEDS: 0.9 % Sodium Chloride Flush 3 ML SYRINGE IVFLUSH (09:12)
[2024-04-03] MEDS: Multivitamin TABLET 1 TAB PO (09:12)
[2024-04-03] MEDS: Sennosides 8.6 MG TABLET PO (09:12)
[2024-04-03] MEDS: Atorvastatin Calcium 10 MG TABLET PO (09:12)
[2024-04-03 09:13] VITALS: BP 132/63; PULSE 104
[2024-04-03] MEDS: Cholecalciferol (Vitamin D3) 25 MCG TABLET PO (09:13)
[2024-04-03] MEDS: predniSONE 10 MG TABLET PO (09:13)
[2024-04-03] MEDS: Pregabalin 75 MG CAPSULE PO (09:13)
[2024-04-03] MEDS: Metoprolol Tartrate 50 MG TABLET PO (09:13)
[2024-04-03] MEDS: Tamsulosin HCL 0.4 MG CAPSULE PO (09:13)
[2024-04-03] MEDS: oxyCODONE HCl Immed Release 5 MG TABLET PO ×2 (09:13→14:54)
[2024-04-03] MEDS: Apixaban 5 MG TABLET PO (09:13)
--- NOTE | 2024-04-03 10:35 | P.DS_ITS ---
DS: Providers Provider Date of Service: 04/03/24 Date of admission: 03/28/24 11:50 Date of discharge: 04/03/24 Primary care physician: Nikita Rivera MD Consults: 03/28/24 12:05 Consult to Thoracic Surgery Routine Consulting Provider: Avery Bennett Reason for consultation: spontaneous pneumo Attending physician on discharge: [facility] Discharging clinician: Tierra Man DS: Diagnosis Discharge Diagnosis (1) Pneumothorax: Status: Acute DS: Summary Hospital Course Hospital Course: From H&P on the day of admission The patient is a 78 year old male with a PMH of COPD with chronic respiratory failure with hypoxia, HLD, BPH, chronic lower back pain, arthritis who presented to the emergency room with complaints of sudden-onset shortness of breath which began just prior to arrival. The patient states that he had a severe coughing spell just prior to this after which he began feeling as if he was unable to catch his breath. He is chronically on 3 L and this was increased to 5 L at home but did not have any improvements in his symptoms hence paramedics were called. Per emergency room records, the patie nt's saturations were below 80 when EMS arrived. In the emergency room the patient's workup revealed a large right-sided pneumothorax with mediastinal shift. A chest tube was placed by the emergency room with improvement in the patient's symptoms. Thoracic surgery has been notified by the ED. Patient is seen and examined in the emergency room. He reports significant improvements post chest tube insertion. Reports being at his baseline self prior to the events that brought him to the ED. denies any increased shortness of breath or chest pain, cough or fevers as of yesterday. Spontaneous pneumothorax Likely due to underlying COPD with blebs Seen by thoracic surgery. Status post chest tube with clinical improvement. repeat chest xray with improvement of PTX. placed to water seal, repeat chest x- ray stable, chest tube removed 04/03. Monitored overnight with no change in clinical condition. Reports significant improvement in pain with chest tube removed. Able to take deeper breaths. Denies shortness of breath. Continue incentive spirometry Acute on chronic respiratory failure with hypoxia due to above Currently on 3-4 L, baseline uses 2-3L of supplemental oxygen. Wean as tolerated COPD Not in acute exacerbation, will continue baseline medications, and as needed duoneb breathing treatments. continued on baseline prednisone. Paroxysmal AFib Continue anticoagulation with Eliquis and rate control with metoprolol Chronic back pain Continue fentanyl patch and prn oxy Chronic anemia with acute drop, H/H stable, transfuse 1 unit H/H improved with transfusion. monitor CBC periodically Patient was evaluated by physical therapy services who recommended pulmonary rehab upon discharge. Time Attestation Discharge Coordination Time (in mins): 36 Quality: Safe Use of Opioids Does Pt have an Active Cancer Diagnosis on the Problem List?: No Quality: Stroke Does the patient have a stroke diagnosis?: No Physical Exam Vital Signs: Vital Signs: Last Vital Signs Temp 97.1 F 04/03/24 09:10 Pulse 104 H 04/03/24 09:13 Resp 18 04/03/24 09:10 BP 132/63 04/03/24 09:13 Pulse Ox 90 L 04/03/24 09:10 O2 Del Method Nasal Cannula 04/03/24 09:10 O2 Flow Rate 4 04/03/24 09:10 BMI result Body Mass Index 26.2 Const: General: cooperative, alert and awake Nutritional Appearance: thin Orientation/consciousness: patient oriented x3 Chest: Other: site of previous chest tube dressing c/d/i Resp: Other: diminished breath sounds, no wheeze Effort & Inspection: normal respiratory effort, able to speak in complete sentences, no respiratory distress and no use of accessory muscles Cardio: Rate: regular rate GI: Inspection: No distended Palpation (GI): Soft to palpation and nontender Neuro: General: patient oriented x3, moves all extremities and CN's II-XI intact bilaterally Extrem: General: Yes no pedal edema DS: Data Data Completed and Pending Labs on day of discharge: Laboratory Results - last 24 hr 04/02/24 05:46 WBC 5.9 RBC 2.95 L Hgb 9.9 L Hct 31.0 L MCV 105.1 H MCH 33.6 H MCHC 31.9 RDW 16.5 H Plt Count 335 MPV 10.3 Immature Gran % (Auto) 3.2 H Neut % (Auto) 56.5 Lymph % (Auto) 15.5 L Swift % (Auto) 11.3 H Eos % (Auto) 12.3 H Baso % (Auto) 1.2 Lymph # (Auto) 0.9 L [place] # (Auto) 0.7 Eos # (Auto) 0.7 H Baso # (Auto) 0.1 Abs Immat Gran (auto) 0.19 H Absolute Neuts (auto) 3.4 Absolute Nucleated RBC 0.020 H Nucleated RBC % (auto) 0.3 H Discharge Plan Discharge Anticipated Discharge Date/Time: 04/03/24 11:48 Patient Disposition: Xfer SNF Discharge Diagnosis: Right pneumothorax status post chest tube Referrals: [facility] [Outside] - 1 Week Nikita Rivera MD [Primary Care Provider] - 1 Week Avery Bennett MD [Physician] - 1 Week Discharge Medications: Continued Trelegy Ellipta 100-62.5-25 mcg blister with device 1 ea inhalation DAILY Qty: 180 2RF albuterol sulfate 90 mcg/actuation HFA aerosol inhaler 2 puff INHALATION Q4H PRN (Reason: Shortness Of Breath Or Wheezing) multivitamin Tablet 1 tab PO DAILY cholecalciferol (vitamin D3) 25 mcg (1,000 unit) Tablet 25 mcg PO DAILY prednisone 10 mg tablet 10 mg PO DAILY Hold Instructions: restart after finishing the 40 mg Prednisone dose. Rx Instructions: see taper instructions metoprolol tartrate 50 mg tablet 50 mg PO BID fentanyl 100 mcg/hr patch 72 hour 1 patch topical Q3D@1800 Qty: 1 0RF ipratropium-albuterol 0.5 mg-3 mg(2.5 mg base)/3 mL solution for nebulization 3 ml inhalation QID PRN (Reason: dyspnea) triamcinolone acetonide 0.1 % cream 1 appl topical DAILY PRN (Reason: Rash) pregabalin 75 mg capsule 75 mg PO DAILY Vyzulta 0.024 % drops 1 drp ophthalmic (eye) BEDTIME Rx Instructions: both eyes Vitamin B-6 50 mg Capsule 50 mg PO DAILY Eliquis 5 mg Tablet 5 mg PO BID Qty: 60 0RF atorvastatin 10 mg tablet 10 mg PO DAILY Changed oxycodone 5 mg tablet 5 mg PO Q8H PRN (Reason: Pain) Qty: 10 0RF Rx Instructions: Partial Fill upon patient request. Discharge Orders: Discharge Order (Routine); Ordered 04/03/24 Ordered By: Tierra Man Diet: Advance to usual diet Activity on Discharge: No heavy lifting Stand Alone Forms: Patient Portal Discharge page Print Language: Moroccan Activity Restrictions/Additional Instructions: VNA for q.o.d. dressing changes. May shower starting 04/03. No strenuous activities. Care Plan Goals: See below Health Concerns: Acute on chronic respiratory failure secondary to right pneumothorax likely due to underlying COPD/bleb Plan of Treatment: Call to schedule follow-up with thoracic surgery in 1 week Change site of chest tube every other day with dry sterile dressing No changes to baseline medications Assessment: See discharge summary
[2024-04-03 11:12] VITALS: BP 105/57; PULSE 94; RESP 20; TEMP 37.1; O2SAT 93
--- NOTE | 2024-04-03 11:17 | MHC.CM.PN ---
Second IMM 04/03/24, Pt chose [facility] for pulm. rehab. awaiting response if they are able to accept him today.
[2024-04-03 11:27] VITALS: PULSE 70; RESP 18; O2SAT 94
--- NOTE | 2024-04-03 11:47 | MHC.CM.PN ---
Second IMM 04/03/24, pt has been medically cleared for DC, he will go to [facility] via S today.
[2024-04-03] MEDS: guaiFENesin DM 200/20/10 ML 10 ML SYRUP PO (12:24)
== END 2024-04-03 15:57 | disposition skilled nursing facility (03) | DRG 190 ==
LOC: HO.ED 11:21 → HO.EDOVER 11:59 → HO.IMC 19:32
PROVIDERS: Internal Medicine; Physician Assistant; Admitting Provider Family Medicine; Emergency Provider Emergency Medicine; PCP Family Medicine; Visit Provider Physician Assistant Medical
DX: J44.9 Chronic obstructive pulmonary disease, unspecified (principal); J96.21 Acute and chronic respiratory failure with hypoxia; J93.12 Secondary spontaneous pneumothorax; I48.0 Paroxysmal atrial fibrillation; M54.9 Dorsalgia, unspecified; G89.29 Other chronic pain; D64.9 Anemia, unspecified; N40.0 Benign prostatic hyperplasia without lower urinary tract symptoms; Z99.81 Dependence on supplemental oxygen; Z79.01 Long term (current) use of anticoagulants; Z87.891 Personal history of nicotine dependence; Z79.51 Long term (current) use of inhaled steroids; Z79.52 Long term (current) use of systemic steroids; Z79.899 Other long term (current) drug therapy
CPT/HCPCS: 0241U; 36415; 71045; 80048; 80053; 81001; 82803; 82947; 83605; 83735; 83880; 84484; 85014; 85018; 85025; 85027; 85610; 86850; 86900; 86901; 86923; 87040; 93005; 94640; 94664; 97163; 99285; J0696; J2270; J2919; J3010; P9016

== ENCOUNTER → 2024-03-28 09:51 | Outpatient (BNV) | payer MEDICARE, MEDICAID, SELFPAY | PROVIDERS: Admitting Provider Family Medicine; Emergency Provider Emergency Medicine; PCP Family Medicine; Visit Provider Internal Medicine Cardiovascular Disease | DX: R06.02 Shortness of breath (principal); R00.0 Tachycardia, unspecified; R94.31 Abnormal electrocardiogram [ECG] [EKG] | CPT/HCPCS: 93010 ==

== ENCOUNTER 2024-03-28 11:50 | Outpatient (BNV) | payer MEDICARE, MEDICAID, SELFPAY | END 2024-03-29 13:30 | PROVIDERS: Admitting Provider Family Medicine; Emergency Provider Emergency Medicine; PCP Family Medicine; Visit Provider Internal Medicine Cardiovascular Disease | DX: R00.0 Tachycardia, unspecified (principal); R94.31 Abnormal electrocardiogram [ECG] [EKG] | CPT/HCPCS: 93010 ==

== ENCOUNTER → 2024-03-28 11:50 | Outpatient (BNV) | payer MEDICARE, MEDICAID, SELFPAY | PROVIDERS: Admitting Provider Family Medicine; Emergency Provider Emergency Medicine; PCP Family Medicine; Visit Provider Surgery | DX: J93.9 Pneumothorax, unspecified (principal) | CPT/HCPCS: 99222; 99232 ==

== ENCOUNTER → 2024-03-28 11:50 | Outpatient (BNV) | payer MEDICARE, MEDICAID, SELFPAY | PROVIDERS: Admitting Provider Family Medicine; Emergency Provider Emergency Medicine; PCP Family Medicine; Visit Provider Family Medicine | DX: J93.9 Pneumothorax, unspecified (principal); J96.01 Acute respiratory failure with hypoxia | CPT/HCPCS: 99223; 99232; 99239 ==

== ENCOUNTER 2024-05-21 14:56 | Outpatient (AMB) | payer MEDICARE, MEDICAID, SELFPAY ==
--- NOTE | 2024-05-21 14:58 | MHC.OFFVIS ---
Vital Signs 05/21/24 15:03 Height 6 ft BP 112/58 L Blood Pressure Location Lt brachial Position Sitting Pulse 58 Pulse Source Pulse Oximeter Pulse Oximetry (%) 93 Oxygen Delivery Method Nasal Cannula Oxygen Flow Rate 2 Intake Visit Reasons: COPD exacerbation/Hypoxia Apprenticeship Consultant Required: No Allergies No Known Allergies Allergy (Mild, Verified 05/21/24 15:05) NONE HPI HPI COPD exacerbation/Hypoxia: Details: 78 y/o gentleman former >30 pack years former smoker followed for advanced 2-3L supplemental oxygen dependent severe COPD.? He continues to use Trelegy, theophylline 400 twice a day, and albuterol MDI with reasonable baseline control his symptoms.? He recently was hospitalized for right-sided spontaneous pneumothorax x2 requiring pleurodesis, now he is slowly recovering. [facility] Medical History HLD (hyperlipidemia) Osteoarthritis BPH (benign prostatic hyperplasia) Skin lesion of back Chronic obstructive pulmonary disease, unspecified Diverticulosis of large intestine without perforation or abscess without bleeding 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 Surgical History History of excision of lesion (~04/17/23) History of repair of rotator cuff History of colon resection (~2001) Family History Mother Hypertension Father Hypertension Social History Household Members: None Housing: House Do you presently have visiting nurse or other home services: Yes Alcohol intake: never Comment: pt refusing alarms Patient Tobacco Use Status: Former Tobacco user Tobacco use type: Cigarette Advance Directives Date on File: 03/29/24 service: No Current occupational status: employed and retired 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 Review of Systems Const Denies daytime sleepiness, Denies excessive sweating, Denies fatigue, Denies fever(s), Denies lethargy, Denies malaise, Denies night sweats, Denies snoring and Denies weight loss Eyes Denies blurry vision and Denies itchy eyes ENT Denies nasal congestion, Denies post nasal drip, Denies sinus pain, Denies sinus pressure and Denies other ( Thrush) Card Denies chest pain, Denies pedal edema, Denies dyspnea, Denies orthopnea and Denies paroxysmal nocturnal dyspnea Resp Denies cough, Denies hemoptysis, Denies excessive phlegm production, Denies dyspnea, Denies snoring and Denies wheezing GI Denies abdominal pain and Denies heartburn Musc Denies myalgias, Denies arthralgias and Denies joint swelling Skin/Breast Denies rash Neuro Denies memory loss and Denies seizure-like activity Psych Denies abnormal sleep pattern, Denies anxiety and Denies memory loss Endo Denies excessive sweating, Denies fatigue and Denies heat intolerance Morgan/Lymph Denies easy bruising Aller/Immun Denies itchy eyes, Denies seasonal rhinorrhea and Denies wheezing Physical Exam Vital Signs: Last Vital Signs Pulse 58 05/21/24 15:03 BP 112/58 L 05/21/24 15:03 Pulse Ox 93 05/21/24 15:03 Oxygen Delivery Method Nasal Cannula 05/21/24 15:03 Oxygen Flow Rate 2 05/21/24 15:03 Const General: no acute distress and alert Nutritional Appearance: not obese Orientation/consciousness: Other orientation findings ( oriented) HEENT Head: Yes atraumatic Eyes General: appearance normal, both eyes and all related structures Sclerae: sclerae normal EOM: EOMs intact bilaterally Neck Neck: Yes supple Lymphatic: no lymphadenopathy noted Resp Effort & Inspection: normal respiratory effort and no use of accessory muscles Auscultation: clear to auscultation bilaterally Cardio Rate: regular rate Rhythm: regular rhythm Heart sounds: no gallops, no murmurs and no rubs Skin General skin exam: other ( warm) Extrem General: No clubbing, No cyanosis and No edema Assessment & Plan Assessment & Plan (1) Chronic obstructive pulmonary disease, unspecified: Code(s): J44.9 - Chronic obstructive pulmonary disease, unspecified Category: Medical Plan: Well controlled on current regimen of Trelegy, theophylline, duo nebs, and albuterol MDI. (2) Supplemental oxygen dependent: Code(s): Z99.81 - Dependence on supplemental oxygen Category: Medical Plan: Continue supplemental oxygen to maintain O2 saturation of 88-92%. (3) Bronchiectasis: Code(s): J47.9 - Bronchiectasis, uncomplicated Category: Medical Plan: No recent exacerbations, continue to monitor clinically. Coding Level of Care Code Est Pt Level 4 (22334) Diagnoses Chronic obstructive pulmonary disease, unspecified J44.9 Supplemental oxygen dependent Z99.81 Bronchiectasis J47.9
[2024-05-21 15:03] VITALS: BP 112/58; PULSE 58; O2SAT 93
== END 2024-05-21 15:22 | disposition home or self-care (01) ==
PROVIDERS: PCP Family Medicine; Visit Provider Internal Medicine Pulmonary Disease
DX: J44.9 Chronic obstructive pulmonary disease, unspecified (principal); Z99.81 Dependence on supplemental oxygen; J47.9 Bronchiectasis, uncomplicated
CPT/HCPCS: 99214

== ENCOUNTER → 2024-05-21 14:56 | Outpatient (BNVA) | payer MEDICARE, MEDICAID, SELFPAY | PROVIDERS: PCP Family Medicine; Visit Provider Internal Medicine Pulmonary Disease | DX: J44.9 Chronic obstructive pulmonary disease, unspecified (principal); J47.9 Bronchiectasis, uncomplicated; Z99.81 Dependence on supplemental oxygen | CPT/HCPCS: 99212 ==

== ENCOUNTER 2024-06-25 09:39 | Outpatient (AMB) | payer MEDICARE, MEDICAID, SELFPAY ==
[2024-06-25 09:54] VITALS: BP 110/58; PULSE 82; O2SAT 92; BMI 25.9
--- NOTE | 2024-06-25 09:54 | A.OFFVIS_ITS ---
Vital Signs 06/25/24 09:54 Height 6 ft Weight 190 lb 11.198 oz BMI 25.9 BP 110/58 L Blood Pressure Location Rt brachial Position Sitting Pulse 82 Pulse Source Doppler Pulse Oximetry (%) 92 Oxygen Delivery Method Nasal Cannula Oxygen Flow Rate 4 Intake Visit Reasons: COPD/Hypoxia Allergies No Known Allergies Allergy (Mild, Verified 05/21/24 15:05) NONE HPI HPI COPD/Hypoxia: Details: 79 y/o gentleman former >30 pack years former smoker followed for advanced 2 L at rest and 3 L with exertion L supplemental oxygen dependent severe COPD.? He continues to use Trelegy, theophylline 400 twice a day, and albuterol MDI with reasonable baseline control his symptoms.? He was hospitalized for right-sided spontaneous pneumothorax x2 requiring pleurodesis. Denies acute exacerbations. He is also undergoing cardiac workup. [facility] Medical History HLD (hyperlipidemia) Osteoarthritis BPH (benign prostatic hyperplasia) Skin lesion of back Chronic obstructive pulmonary disease, unspecified Diverticulosis of large intestine without perforation or abscess without bleeding 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 Surgical History History of excision of lesion (~04/17/23) History of repair of rotator cuff History of colon resection (~2001) Family History Mother Hypertension Father Hypertension Social History Household Members: None Housing: House Do you presently have visiting nurse or other home services: Yes Alcohol intake: never Comment: pt refusing alarms Patient Tobacco Use Status: Former Tobacco user Tobacco use type: Cigarette Advance Directives Date on File: 03/29/24 service: No Current occupational status: employed and retired 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 Review of Systems Const Denies daytime sleepiness, Denies excessive sweating, Denies fatigue, Denies fever(s), Denies lethargy, Denies malaise, Denies night sweats, Denies snoring and Denies weight loss Eyes Denies blurry vision and Denies itchy eyes ENT Denies nasal congestion, Denies post nasal drip, Denies sinus pain, Denies sinus pressure and Denies other ( Thrush) Card Denies chest pain, Denies pedal edema, Denies dyspnea, Reports dyspnea on exertion, Denies orthopnea and Denies paroxysmal nocturnal dyspnea Resp Denies cough, Denies hemoptysis, Denies excessive phlegm production, Denies dyspnea, Reports dyspnea on exertion, Denies snoring and Denies wheezing GI Denies abdominal pain and Denies heartburn Musc Denies myalgias, Denies arthralgias and Denies joint swelling Skin/Breast Denies rash Neuro Denies memory loss and Denies seizure-like activity Psych Denies abnormal sleep pattern, Denies anxiety and Denies memory loss Endo Denies excessive sweating, Denies fatigue and Denies heat intolerance Morgan/Lymph Denies easy bruising Aller/Immun Denies itchy eyes, Denies seasonal rhinorrhea and Denies wheezing Physical Exam Vital Signs: Last Vital Signs Pulse 82 06/25/24 09:54 BP 110/58 L 06/25/24 09:54 Pulse Ox 92 06/25/24 09:54 Oxygen Delivery Method Nasal Cannula 06/25/24 09:54 Oxygen Flow Rate 4 06/25/24 09:54 BMI result Body Mass Index 25.9 Const General: no acute distress and alert Nutritional Appearance: not obese Orientation/consciousness: Other orientation findings ( oriented) HEENT Head: Yes atraumatic Eyes General: appearance normal, both eyes and all related structures Sclerae: sclerae normal EOM: EOMs intact bilaterally Neck Neck: Yes supple Lymphatic: no lymphadenopathy noted Resp Effort & Inspection: normal respiratory effort and no use of accessory muscles Auscultation: clear to auscultation bilaterally Cardio Rate: regular rate Rhythm: regular rhythm Heart sounds: no gallops, no murmurs and no rubs Skin General skin exam: other ( warm) Extrem General: No clubbing, No cyanosis and No edema Office Procedures 6 Minute Walk Time:: 10:20 SPO2 % at rest: 92 (on 2 Lpm) Pulse at rest: 128 SPO2 % during excercise: 87 Pulse during excercise: 94 SPO2 % after excercise: 91 Pulse after excercise: 91 Distance in yards walked: 100 Bonnie Score: 8 Performance Observations:: Jordy walked on level ground on O2 2 lpm, he walked for 80 yards before his SPO2 decreased to 87%. O2 increased to 3 lpm and his SPO2 recovered to 91%. He maintained his SPO2 91-93% on 3 lpm O2. [address] - 6 Minute Walk Assessment & Plan Assessment & Plan (1) Chronic obstructive pulmonary disease, unspecified: Code(s): J44.9 - Chronic obstructive pulmonary disease, unspecified Category: Medical Plan: Reasonable control on maximum therapy with Trelegy, theophylline, duo nebs, prednisone 10 mg daily, and albuterol MDI. Continue current regimen. (2) Supplemental oxygen dependent: Code(s): Z99.81 - Dependence on supplemental oxygen Category: Medical Plan: In office 6 minute walk/supplemental oxygen evaluation performed. Patient requires 2 L of supplemental oxygen at rest and 3 L of supplemental oxygen with exertion to maintain normal oximetry. (3) Dyspnea on exertion: Code(s): R06.09 - Other forms of dyspnea Category: Medical Plan: Appears to be multifactorial with contribution from underlying pulmonary and cardiac etiologies. Patient is also undergoing cardiac workup. Orders: Orders AMB 6 minute walk Today J44.9 - Chronic obstructive pulmonary disease, unspecified Coding Level of Care Code Est Pt Level 4 (69394) Complex EM visit Add On G2211 Diagnoses Chronic obstructive pulmonary disease, unspecified J44.9 Supplemental oxygen dependent Z99.81 Dyspnea on exertion R06.09 CPT Codes Coding ([id number])
[2024-06-25 10:31] VITALS: PULSE 128; O2SAT 92
== END 2024-06-25 10:32 | disposition home or self-care (01) ==
LOC: HO.HPS 09:40
PROVIDERS: PCP Family Medicine; Visit Provider Internal Medicine Pulmonary Disease
DX: J44.9 Chronic obstructive pulmonary disease, unspecified (principal); Z99.81 Dependence on supplemental oxygen; R06.09 Other forms of dyspnea
CPT/HCPCS: 94618; 99214; G2211

== ENCOUNTER → 2024-06-25 09:39 | Outpatient (BNVA) | payer MEDICARE, MEDICAID, SELFPAY | PROVIDERS: PCP Family Medicine; Visit Provider Internal Medicine Pulmonary Disease | DX: J44.9 Chronic obstructive pulmonary disease, unspecified (principal); R09.02 Hypoxemia; R06.09 Other forms of dyspnea; Z99.81 Dependence on supplemental oxygen | CPT/HCPCS: 94618; 99212 ==

== ENCOUNTER → 2024-07-12 09:22 | Outpatient (REF) | payer MEDICARE, MEDICAID, SELFPAY ==
--- NOTE | ~2024-07-12 | NM_ITS ---
Lexiscan Myocardial perfusion study Indication: Abnormal EKG, elevated troponins Technique: The patient was brought in for a Lexiscan perfusion study on 07/12/2024 and was injected 0.4 mg of Lexiscan intravenously. Within a minute of this injection 30 mCi of sestamibi was given intravenously. Images were obtained using the SPECT gamma camera interlaced with the gating device. Images were obtained in supine position. Resting perfusion study was performed on 07/13/2024. Patient was administered 30 mCi of sestamibi intravenously at rest. Images were then obtained in supine position. Total DLP 89 mGy-cm. Images were processed with the software and compared side to side in short axis, horizontal long axis and vertical long axis views. Findings: Raw aquisition reviewed. The stress perfusion study showed mildly diminished tracer uptake in the inferior wall. There is improvement with CT attenuation correction suggestive of diaphragmatic attenuation artifact. The gated study shows normal LV systolic function with calculated LVEF of 65%. LV cavity is normal in size. The gated study shows normal wall thickening and contraction of segments. Resting study shows mild distal inferior defect but otherwise unremarkable. Gating at rest reveals normal wall motion with ejection fraction at 64%. The findings are consistent with reversible inferior perfusion defect. In the distal aspect it appears fixed. Possibly all artifactual. NM/NM cardiolite stress test Impression: 1. Myocardial perfusion imaging study shows mixed inferior perfusion defect probably artifactual. 2. Gated LVEF is 65% during stress and 64% during rest. 3. Transient ischemic dilatation not present. EKG component of the test reported separately. Electronically signed by: Ishmael Karimi MD 07/13/2024 04:16 PM [facility]
--- NOTE | 2024-07-12 09:25 | CA_ITS ---
Acquisition Time: 2024-07-12 09:38:52 Total Exercise Time: 00:02:00 Test Indications: ABN EKG ELEVATED TROP Medications: SEE DISCHARGE SUMMARY Protocol: LEXISCAN Max HR: 096 BPM 67% of Pred: 143 BPM Max BP: 110/068 mmHG Max Work Load: 1.0 METS Pharmacologic Stress Test with Lexiscan, with moderate SOB, without any chest discomfort, with isolated PVCs and isolated PACs, with normotensive response to injectyion. With nondiagnostic EKG for ischemia. Nuclear Images pending. In recovery, treated with Aminophylline 75 mg IVP to reverse Lexiscan. Breathing back to baseline. Test reviewed with Dr. Hargrove. Referred By: Hugo Hargrove Overread By: SERAFIN CORTÉS
== END ==
LOC: HO.CARD 09:22
PROVIDERS: PCP Family Medicine; Visit Provider Internal Medicine Cardiovascular Disease
DX: I48.92 Unspecified atrial flutter (principal); I49.9 Cardiac arrhythmia, unspecified; J44.9 Chronic obstructive pulmonary disease, unspecified
CPT/HCPCS: 78452; 93017; A9500; J0280; J2785

== ENCOUNTER → 2024-07-12 09:25 | Outpatient (BNV) | payer MEDICARE, MEDICAID, SELFPAY | PROVIDERS: PCP Family Medicine; Visit Provider Nurse Practitioner Family | DX: I49.3 Ventricular premature depolarization (principal); I49.1 Atrial premature depolarization | CPT/HCPCS: 78452; 93016; 93018 ==

== ENCOUNTER 2024-08-26 13:11 | Outpatient (REF) | payer MEDICARE, MEDICAID, SELFPAY ==
[2024-08-26 13:15] LABS: MANUAL DIFF FLAG NO
[2024-08-26 13:24] LABS: Basophils Absolute Auto 0.1 X10*3/uL (0.0-0.2); Basophils Percent Auto 0.6 % (0-2); Eosinophils Percent Auto 0.2 % (0-4); Hematocrit 29.1 % (42.0-52.0); Hemoglobin 9.6 g/dl (14.0-18.0); Imm Gran Pct Auto 1.2 % (0.0-0.4); Lymphocytes Absolute Auto 0.8 X10*3/uL (1.2-4.9); Lymphocytes Percent Auto 9.1 % (20-40); Mean Corpuscular Hemoglobin 34.5 pg (27.0-33.0); Mean Corpuscular Volume 104.7 fL (80.0-98.0); Mean Platelet Volume 10.7 fL (9.4-12.4); Monocytes Absolute Auto 0.3 X10*3/uL (0.1-1.2); Monocytes Percent Auto 3.7 % (2-11); Neutrophils Absolute Auto 7.3 x10*3/uL (2.0-8.3); Neutrophils Percent Auto 85.2 % (45-73); Platelet Count 273 X10*3/uL (160-400); Red Blood Count 2.78 X10*6/uL (4.60-5.80); Red Cell Distribution Width 15.5 % (11.0-16.0); White Blood Count 8.6 X10*3/uL (4.8-10.8)
[2024-08-26 13:41] LABS: Alanine Aminotransferase 17 U/L (0-40); Albumin Level 3.7 g/dL (3.5-5.0); Alkaline Phosphatase 52 U/L (39-117); Anion Gap 15 (12-20); Aspartate Amino Transferase 25 U/L (5-37); Bilirubin Total 0.2 mg/dL (0.0-1.0); Blood Urea Nitrogen 15 mg/dL (9-16); Calcium 9.1 mg/dL (8.4-10.2); Carbon Dioxide 28 mmol/L (22-29); Chloride 103 mmol/L (96-108); Estimated Glomerular Filt Rate > 60; Glucose Random 135 mg/dL (60-115); Potassium 4.5 mmol/L (3.3-5.1); Sodium 141 mmol/L (135-145); Total Protein 6.4 g/dL (6.5-8.0)
--- OUTSIDE RECORDS SUMMARY | 2024-08-26 14:19 | XMS_ITS | Continuity of Care Document ---
Author Organization [facility] Address [address] [place] [address] Care Team Providers Care Manufacturers Representative Name Role Phone [facility] OTHER Assessment Encounter Date Assessment Date Assessment LastModified by Organization Details LastModified Time 06/22/2024 06/22/2024 spent 30 minutes reviewing chart, MAR and discussing patient with nursing staff [email or web address] Not available 06/22/2024 10:17:20 Plan of Treatment Reminders Order Date Submit Date Provider Last Modified By Organization Details Last Modified Time Details Appointments None record ed. Lab None record ed. Referral None record ed. Procedures None record ed. Surgeries None record ed. Imaging None record ed. Medication Orders None record ed. Patient TargetsNo targets recorded. Patient InstructionsNo instructions recorded. Reason for Referral None Reported. Problems Name Problem SNOMED Code Status Onset Date Resolution Date Notes Provider Name and Address Organization Details Recorded Time Atrial fibrillation 71091949 Active 2023 CONCHA CASTRO [address], [address], [place], [address], [facility] [employer] [facility] 4 11:35:25 Chronic obstructive pulmonary disease 70906292 Active 2023 CONCHA CASTRO [address], [address], [place], [address], [facility] [employer] 4 11:35:30 Right pneumothorax 837494856 Active 2023 CONCHA CASTRO [address], [address], [place], [address], [facility] [employer] [facility] 4 11:35:41 Myelodysplasti c syndrome (clinical) 771627367 Active 2023 CONCHA CASTRO [address], [address], [place], [address], [facility] [employer] [facility] 4 11:36:04 Peripheral nerve disease 544291523 Active 2023 CONCHA CASTRO [address], [address], [place], [address], [facility] [employer] [facility] 4 11:36:18 Chronic back pain 285647442 Active [address], [place], [address], [facility] [employer] [facility] 4 11:36:27 Essential hypertension 56463409 Active [address], [place], [address], [facility] [employer] [facility] 4 11:36:33 Hyperlipidemia 55031861 Active [address], [place], [address], [facility] [employer] [facility] 4 11:36:48 Vitamin deficiency 40335118 Active 2023 CONCHA CASTRO [address], [address], [place], [address], [facility] [employer] [facility] 4 11:42:07 Constipation 85268075 Active 2023 CONCHA CASTRO [address], [address], [place], [address], [facility] [employer] [facility] 4 11:43:41 Depressive disorder 12498511 Active 2023 CONCHA CASTRO [address], [address], [place], [address], [facility] [employer] [facility] 4 11:44:50 Anemia 675209107 Active 2023 CONCHA CASTRO [address], [address], [place], [address], [facility] [employer] [facility] 4 11:54:09 Dysuria 72486230 Active 2023 Rebecca Nails [address], [address], [place], [address], [facility] [employer] [facility] 4 10:57:52 Benign prostatic hyperplasia 625769827 Active 2023 JACKELYN LO [address], [place], [address], [facility] [employer] [facility] 4 12:36:37 Problem Notes None recorded. Medical Equipment None Reported. Allergies No known drug allergies Medications Name Sig Start Date Stop Date Status Note LastModified by Organization Details LastModified Time bupropion HCl SR 150 mg tablet,12 hr sustained-re lease TAKE ONE (1) TABLET BY MOUTH TWICE DAILY DIRECTED FOR DEPRESSION active Not Available Not Available N ot Available prednisone 10 mg tablet Take 1 tablet every day by oral route as directed for 30 days, for COPD. 2023 active Not Available Not Available Not Avai lable fentanyl 100 mcg/hr transdermal patch Apply 1 patch every 72 hours by transdermal route as directed for 30 days, for pain. 2023 active Not Available Not Available Not Avai lable metoprolol tartrate 50 mg tablet TAKE ONE (1) TABLET BY MOUTH TWICE DAILY DIRECTED FOR BLOOD PRESSURE active Not Available Not Available No t Available Cardizem CD 120 mg capsule,exte nded release Take 1 capsule every day by oral route as directed for 30 days, for HTN. 2023 active Not Available Not Available Not Avai lable Lipitor 10 mg tablet Take 1 tablet every day by oral route at bedtime for 30 days, for HLD. 2023 active Not Available Not Available Not Avai lable Lyrica 75 mg capsule Take 1 capsule every day by oral route as directed for 30 days, for neuropathy. 2023 active Not Available Not Available Not Avai lable Eliquis 5 mg tablet Take 1 tablet twice a day by oral route as directed for 30 days, for Afib. 2023 active Not Available Not Available Not Avai lable Trelegy Ellipta 100 mcg-62.5 mcg-25 mcg powder for inhalation Inhale 1 puff every day by inhalation route as directed for 30 days, for COPD. 2023 active Not Available Not Available Not Avai lable Vitals None Recorded Social History Question Answer Notes LastModified by Organizat ion Details LastModified Time Tobacco Smoking Status Former Smoker CHERRIE CASTROC [address] [facility], [address], [place], [address], [facility] 04/20/2024 11:52:35 Do You Have An Advance Directive? Yes Information not available 04/28/2024 What Is Your Code Status? Full Code Information not available 04/28/2024 How Much Tobacco Do You Smoke? 1 PPD [email or web address] Information not available 04/20/2024 How Many Years Have You Smoked Tobacco? 30 [email or web address] Information not available 04/20/2024 Sex: Unknown Functional Status None recorded. Mental Status None recorded. Family History Relationship Description Onset Age of this Age Resolved Age Notes LastModified by Organization Details LastModified Time Father No current problems or disability glord Not available 05/18 12:27:03 Mother No current problems or disability glord Not available 05/18 12:27:03 Notes:N/C Medical History No medical history recorded. Immunizations Vaccine Type Date Status Note Provider Nam e and Address Organization Details Recorded Time influenza, unspecified formulation 06/16/2021 completed Trell Silva null, [facility] 04/28/2024 15:40:18 influenza, unspecified formulation 06/13/2022 completed Trell Silva null, [facility] 04/28/2024 15:40:23 SARS-COV-2 (COVID-19) vaccine, UNSPECIFIED 10/04/2020 completed Trell Silva null, [facility] 04/28/2024 15:40:34 SARS-COV-2 (COVID-19) vaccine, UNSPECIFIED 11/09/2020 completed Trell Silva null, [facility] 04/28/2024 15:40:41 SARS-COV-2 (COVID-19) vaccine, UNSPECIFIED 07/31/2021 completed Trell Silva null, [facility] 04/28/2024 15:40:47 SARS-COV-2 (COVID-19) vaccine, UNSPECIFIED 02/05/2022 completed Trell Silva null, [facility] 04/28/2024 15:40:55 SARS-COV-2 (COVID-19) vaccine, UNSPECIFIED 10/04/2022 completed Trell Ricardo null, [facility] 04/28/2024 15:41:01 SARS-COV-2 (COVID-19) vaccine, UNSPECIFIED 09/03/2023 completed Trell Ricardo null, [facility] 04/28/2024 15:41:09 zoster, unspecified formulation 07/15/2022 completed Trell Ricardo null, [facility] 04/28/2024 15:41:26 zoster, unspecified formulation 12/17/2022 completed Trell Ricardo null, [facility] 04/28/2024 15:41:35 Past Encounters Encounter ID Performer Location Encounter Start Date Encounter Closed Date Diagnosis/Indication Diagnosis SNOMED-CT Code Diagnosis ICD10 Code [id number] JACKELYN LORD [facility] AT [address] [address] 05/24/2024 12:21:10 05/25/2024 16:11:05 Benign prostatic hyperplasia 532366469 N40.1 [id number] MD CORDELIA Otoole AT [address] [address] 05/28/2024 22:12:48 2024 14:08:55 Orthostatic hypotension 11725870 I95.1 Dyspnea 037729554 R06.02 [id number] RUSSELL CRUZ AT [address] [address] 06/04/2024 10:35:03 06/08/2024 12:55:12 Orthostatic hypotension 76634099 I95.1 Dyspnea 823879742 R06.02 Atrial fibrillation 4943 6004 I48.0 [id number] Bryant [facility] AT [address] [address] 06/07/2024 07:51:58 06/08/2024 13:35:02 Respiratory tract congestion and cough 522850601 R05.9 [id number] AustinNellieAlessia [facility] AT [address] [address] 06/10/2024 07:35:38 06/11/2024 10:26:41 Orthostatic hypotension 23432043 I95.1 Dyspnea 021043699 R06.02 Atrial fibrillation 4943 6004 I48.0 Respirator y tract congestion and cough 450321970 R05.9 Right pneumothorax 49714 3001 J93.9 Chronic ob structive pulmonary disease 00055365 J44.9 Depressive disorder 3548 9007 F32.A Peripheral nerve disease 853520553 G64 Essential hypertension 01645031 I10 Myelodyspl astic syndrome (clinical) 216680631 D46.9 Chronic back pain 929763 002 G89.29 Anemia 694416718 D64.9 [id number] Bryant [facility] AT [address] [address] 06/11/2024 11:09:33 06/14/2024 14:20:01 Allergic conjunctivitis of bilateral eyes 8521347689 89210 H10.13 Acute exac erbation of chronic obstructive pulmonary disease 402390285 J44.1 Right pneumothorax 82938 3001 J93.9 [id number] Bryant ST[facility] AT [address] [address] 06/12/2024 10:41:43 06/14/2024 14:39:09 Respiratory tract congestion and cough 569680650 R05.9 Anemia 332449114 D64.9 Acute exac erbation of chronic obstructive pulmonary disease 438522252 J44.1 Allergic conjunctivitis of bilateral eyes 4524007671 49928 H10.13 Right pneumothorax 93726 3001 J93.9 Pneumonia 900903127 J18. 9 [id number] Bryant [facility] AT [address] [address] 06/14/2024 07:30:00 06/16/2024 08:46:20 Pneumonia 971465178 J18.9 Acute exac erbation of chronic obstructive pulmonary disease 402089547 J44.1 Right pneumothorax 44535 3001 J93.9 Respirator y tract congestion and cough 003343941 R05.9 Anemia 661148950 D64.9 Allergic conjunctivitis of bilateral eyes 8413680212 41326 H10.13 Myelodyspl astic syndrome (clinical) 426907469 D46.9 Tight chest 82850885 R07 .89 [id number] Bryant ST[facility] AT [address] [address] 06/16/2024 07:44:58 06/22/2024 09:46:20 Pneumonia 068630038 J18.9 Acute exac erbation of chronic obstructive pulmonary disease 718427840 J44.1 Right pneumothorax 36951 3001 J93.9 Respirator y tract congestion and cough 085269810 R05.9 Tight chest 14934381 R07 .89 [id number] Bryant STOREY AT [address] [address] 06/17/2024 10:08:00 06/22/2024 10:34:00 Myelodysplastic syndrome (clinical) 910691806 D46.9 Anemia 490220848 D64.9 [id number] Bryant STORE[facility] AT [address] [address] 06/22/2024 07:42:12 06/23/2024 14:39:27 Pneumonia 804529312 J18.9 Acute exac erbation of chronic obstructive pulmonary disease 358704634 J44.1 Right pneumothorax 65188 3001 J93.9 Respirator y tract congestion and cough 712038950 R05.9 Tight chest 01444353 R07 .89 Myelodyspl astic syndrome (clinical) 234294371 D46.9 Anemia 370627468 D64.9 Allergic conjunctivitis of bilateral eyes 5392911283 68998 H10.13 Orthostati c hypotension 24803154 I95.1 Atrial fibrillation 4943 6004 I48.0 Chronic ob structive pulmonary disease 91480982 J44.9 Depressive disorder 3548 9007 F32.A Peripheral nerve disease 696240737 G64 Essential hypertension 47693346 I10 Chronic back pain 795866 002 G89.29 Health Concerns Section Related Observation LastModified by Organization Detai ls LastModified Time None Recorded Concern Status LastModified by Organization Details LastModified Time None Recorded Payers Encounter Date Sequence Insurance Name Policy Number Policy Workman Covered Member ID Workman Member ID Guarantor Name 06/22/2024 2 [place] [id number] [id number] Jordy Jenkins 06/22/2024 1 [place]ARE [place] [facility] Jordy Jenkins [id number] Jordy Jenkins Notes Date Note Type Note Provider Name and Address Organization Details Recorded Time 06/22/2024 text/html This is a 79 y.o male being seen for acute rounding visit past medical history of afib on eliquis, COPD/ asthma on 4 L, recurrent pneumothorax, prior smoker, myelodysplastic disease, peripheral neuropathy, chronic back pain, HTN, HLD. Patient was admitted here on 04/20 for pneumothorax, he was seen on 05/03 for elevated fever of 102 and sent to the ED for urgent eval at [facility]. He was found with spontaneous pneumothorax as well as klebsiella bacteremia due to UTI. He underwent talc pleurodesis on 05.08, pigtail removed on 05/16 by thoracic surgery. Repeat imaging showed mild increase in small right apical pneumothorax but then second repeat showed area was stable. His eliquis was restarted, he was stabilized and felt he could DC back to [facility]. Patient was seen last month for urinary hesitancy and restarted on flomax.Earlier this month he was noted with SOB and hypotension during PT. CXR was non-acute. diltiazem was increased from 120 mg to 240 mg during last hospitalization and weaned back down to 120mg per D/C summary instructions. He developed URI sxs congestion and cough and started on flonase and geritussin. CXR was obtained due to recurrent pneumothorax and increased WOB and found to have PNA. Completed z-demario, augmentin and steroid taper last week and resumed his daily 10mg dose. He is feeling much better. Apt thoracic surgery rescheduled to June. Last week he was questioning if he was taking his Vitamin B6 for anemia for myelodysplastic sydrome. He was questioning if worsening anemia could explain his SOB and if med needs to be increased. He tells me he follows Dr. Baldwin every 4-6 months. Repeat labs were obtained on 06/18 and hgb is actually increased from previous BL. Patient seen today sitting in bed during lunch. he tells me he feels okay today. A_Alessia-Oleg is [address], [address], [place], [address], [place] [facility] 06/22/2024 12:55:26
--- OUTSIDE RECORDS SUMMARY | 2024-08-26 14:19 | XMS_ITS ---
Author Organization Salbador Ybarra III, MD Address [address] [place] [address] Care Team Providers Care Autotransfusionist Name Role Phone Nikita Rivera MD Primary Care Provider Unavailab Salbador Fuentes Unavailable [phone] Allergies Allergen (clinical drug ingredient) Drug/Non Drug [...] Date Provider Diagnosis Salbador Ybarra III, MD [address] [place] [address] [place] [address] 04/09/2024 Salbador Ybarra Myelodysplastic syndrome, unspecified D46.9 [...] Notes * Jordy MCCLELLANDDOB:1944 (79 yo M)Acc No.[id number]:04/09/2024 Progress Notes Patient:?Jordy MCCLELLAND Provider:?Salbador Ybarra MD :1945???Age:78 Y???Sex:Male Refugio e:04/09/2024 Address:[address] [place] [address] [phone] Pcp:Nikita Rivera MD Subjective: * Chief Complaints: * ???1. Followup. * HPI: ???COVID-19 Screening:?Questions?Have you had any new onset fever, chills, cough, congestion, sore throat, shortness of breath, muscle aches??No ?Have you been exposed to the virus within the last 10 days??No ?Have you travelled internationally in the last 10 days??No ?Have you been exposed to COVID-19 in the past??No * ROS:?General/Constitutional:?pain?only normal aches and pains.?Chills?denies.?Fatigue?admits.?Fever?denies.?ENT:?Decreased hearing?denies.?Respiratory:?Cough?denies.?Cardiovascular:?Chest pain with exertion?denies.?Dyspnea on exertion?denies.?Shortness of breath?denies.?Gastrointestinal:?Constipation?denies.?Decreased appetite?denies.?Diarrhea?denies.?Heartburn?denies.?Nausea?denies.?Rectal bleeding?denies.?Vomiting?denies.?Hematology:?bruising?denies.?petechiae?denies.?Swollen glands?none have been noted.?Genitourinary:?Frequent urination?denies.?Musculoskeletal:?Muscle aches?denies.?Painful joints?denies.?Sciatica?denies.?Weakness?denies.?Skin:?Itching?denies.?Rash?denies.?Skin lesion(s)?denies.?Neurologic:?Difficulty speaking?denies.?Dizziness?denies.?Headache?denies.?Low back pain?denies.?Psychiatric:?Depressed mood?denies.? 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 * Surgical History:?bowel rese ction for diverticulitis 2001. * Hospitalization/Major Diagno stic Procedure:?Denies Past Hospitalization. * Family History:?Father: dece ased 60 yrs, sucide.?Mother: 85 yrs.?Siblings: 1 brother alive, 1 brother .? The family history is unremakable for anemia. He is not aware of any family history of mental illness other than his father's suicide or substance use disorder or addition. * Social History:?Tobacco Use:?Tobacco Use/Smoking?Patient is a?former smoker ?How long has it been since you last smoked??1-5 years ?Additional Findings: Tobacco Non-User?Ex-cigarette smoker ???He was born in [place], [place]. 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 He has 2 children and 2 grandchildren. * Medications:?Taking Pregabal in 75 MG Capsule 1 capsule Orally Twice [...] reviewed and reconciled with the patient * Allergies:?No Known Drug All ergy. Objective: * Vitals:? * Examination: ???General Examination: ?GENERAL APPEARANCE:?pleasant, well nourished, well developed, in no acute distress, calm and relaxed.?HEAD:?atraumatic, normocephalic.?EYES:?eomi, perrla, anicteric, conjugate.?EARS:?normal.?NOSE:?septum intact.?ORAL CAVITY:?normal, unremarkable.?NECK/THYROID:?no jugular venous distention, no carotid bruit, thyroid normal.?LYMPH NODES:?no enlarged lymph nodes,spleen normal.?SKIN:?no suspicious lesions, anicteric.?HEART:?no clicks, gallops, murmurs, or rubs, regular rhythm, S1, S2 normal, no s3, or vascular bruits.?LUNGS:?clear to auscultation .?BREASTS:??no masses palpable bilaterally.?ABDOMEN:?bowel sounds normal, no ascites, no organomegaly, no mass.?RECTAL EXAM:?not examined.?MUSCULOSKELETAL:?extremities unremarkable, no clubbing, cyanosis or edema.?PERIPHERAL PULSES:?normal.?NEUROLOGIC:?alert and oriented, cranial nerves 2-12 grossly intact, deep tendon reflexes 2+ symmetrical, motor strength normal upper and lower extremities, sensory exam intact.?PSYCH:?alert, oriented.? Assessment: * Assessment: 1.?Myelodysplastic syndrome, unspecified - D46.9???Notes :His mean cell volume Is slowly increasing. No change in his blood work has been noted. Current therapy was continued. The vitamin B12 and folic acid levels are normal.??? Plan: * Treatment: * Images: * The named appointment provid er may or may not be the originator of this progress note, and it is not deemed complete until electronically signed by the appointment provider. Sign off status: Pending * Provider:?Salbador Ybarra MD Date:?03/25 Generated for Balaji cano/Josh/Radhaitting on:?08/26/2024 02:19 PM EST History and Physical Notes * HPI (History of Present Illness) Category Sub-Category Detail Notes COVID-19 Screening Questions Have you had any new onset fever, chills, cough, congestion, sore throat, shortness of breath, muscle aches?: No Have you been exposed to the virus withi n the last 10 days?: No Have you travelled internationally in [facility] last 10 days?: No Have you [...]
--- OUTSIDE RECORDS SUMMARY | 2024-08-26 14:19 | XMS_ITS | Data Portability ---
Author Organization [facility] [employer] [facility], Main Office Address [address] [place] [address] Care Team Providers Care Deployment Technician Name Role Phone [facility] OTHER Assessment Encounter Date Assessment Date Assessment LastModified by Organization Details LastModified Time 06/14/2024 06/14/2024 spent 30 minutes reviewing chart, MAR and discussing patient with nursing staff [email or web address] Not available 06/14/2024 09:32:11 06/16/2024 06/16/2024 spent 30 minutes reviewing chart, MAR and discussing patient with nursing staff [email or web address] Not available 06/16/2024 09:53:29 06/22/2024 06/22/2024 spent 30 minutes reviewing chart, MAR and discussing patient with nursing staff [email or web address] Not available 06/22/2024 10:17:20 06/23/2024 06/23/2024 spent 30 minutes reviewing chart, MAR and discussing patient with nursing staff [email or web address] Not available 06/23/2024 07:15:08 Plan of Treatment Reminders Order Date Submit Date Provider Last Modified By Organization Details Last Modified Time Details Appointments None recorded. Lab None recorded. Referral None recorded. Procedures None recorded. Surgeries None recorded. Imaging None recorded. Medication Orders fentanyl 100 mcg/hr transdermal patch 2023 024 [facility], [address] [place] [address], [address], [place], [address], 10:44:30 Lyrica 75 mg capsule 2023 024 [facility]0975, [address] [place], [address], 10:43:35 Trelegy Ellipta 100 mcg-62.5 mcg-25 mcg powder for inhalation 2023 024 [id number] [address] [facility] [place], [address], 4 10:43:33 prednisone 10 mg tablet 2023 024 [id number], [address] [place], [address], 10:43:31 Lipitor 10 mg tablet 2023 024 [facility] [address] [place], [address], 4 10:43:32 Eliquis 5 mg tablet 2023 024 [facility] [address] [place], [address], 4 10:43:33 metoprolol tartrate 50 mg tablet 2023 024 [facility] [address] [place], [address], 4 10:43:32 Cardizem CD 120 mg capsule,ext ended release 2023 024 [facility] [address] [place], [address], 10:43:32 bupropion HCl SR 150 mg tablet,12 hr sustained-r elease 2023 024 [facility] [address] [place], [address], 4 10:43:31 Patient TargetsNo targets recorded. Patient InstructionsNo instructions recorded. Reason for Referral None Reported. Problems Name Problem SNOMED Code Status Onset Date Resolution Date Notes Provider Name and Address Organization Details Recorded Time Atrial fibrillation 21446132 Active 2023 CONCHA CASTRO [address], [address], [place], [address], [facility] [employer] 4 11:35:25 Chronic obstructive pulmonary disease 84571856 Active 2023 CONCHA CASTRO [address], [address], [place], [address], [facility] [employer] 4 11:35:30 Right pneumothorax 944270076 Active 2023 CONCHA CASTRO [address], [address], [place], [address], [facility] 4 11:35:41 Myelodysplasti c syndrome (clinical) 442281636 Active 2023 CONCHA CASTRO [address], [address], [place], [address], [facility] 4 11:36:04 Peripheral nerve disease 595738271 Active 2023 CONCHA CASTRO [address], [address], [place], [address], [facility] 4 11:36:18 Chronic back pain 705630838 Active 2023 CONCHA CASTRO [address], [address], [place], [address], [facility] 4 11:36:27 Essential hypertension 13461891 Active 2023 CONCHA CASTRO [address], [address], [place], [address], [facility] [employer] [facility] 4 11:36:33 Hyperlipidemia 63514766 Active 2023 CONCHA CASTRO [address], [address], [place], [address], [facility] 4 11:36:48 Vitamin deficiency 36351313 Active 2023 CONCHA CASTRO [address], [address], [place], [address], [facility] 4 11:42:07 Constipation 74867295 Active 2023 CONCHA CASTRO [address], [place], [address], [facility] 4 11:43:41 Depressive disorder 51864732 Active 2023 CONCHA CASTRO [address] , [address], [place], [address], [facility] [employer] [facility] 4 11:44:50 Anemia 466230831 Active 2023 CONCHA CASTRO [address], [address], [place], [address], [facility] [employer] [facility] 4 11:54:09 Dysuria 86060903 Active 2023 Rebecca Nails [address], [address], [place], [address], [facility] [employer] [facility] 4 10:57:52 Benign prostatic hyperplasia 333599708 Active 2023 JACKELYN LO [address], [address], [place], [address], [facility] 4 12:36:37 Problem Notes None recorded. Medical [...] Tobacco Smoking Status Former Smoker CHERRIE CASTROC [address] [place] [address], [place], [address], [facility] [employer] 04/20/2024 11:52:35 Do You Have An Advance Directive? Yes Information not available 04/28/2024 What Is Your Code Status? Full Code Information not available 04/28/2024 How Much Tobacco Do You Smoke? 1 PPD [email or web address] Information not available 04/20/2024 How Many Years Have You Smoked Tobacco? 30 Information not available 04/20/2024 Sex: Unknown Functional [...] Time influenza, unspecified formulation 06/16/2021 completed Trell cancino [facility] 04/28/2024 15:40:18 influenza, unspecified formulation 06/13/2022 completed Trell cancino [facility] 04/28/2024 15:40:23 SARS-COV-2 (COVID-19) vaccine, UNSPECIFIED 10/04/2020 completed Trell Page-Veras null, [facility] 04/28/2024 15:40:34 SARS-COV-2 (COVID-19) vaccine, UNSPECIFIED 11/09/2020 completed Trell Page-Veras null, [facility] 04/28/2024 15:40:41 SARS-COV-2 (COVID-19) vaccine, UNSPECIFIED 07/31/2021 completed Trell Shaffers-Veras null, [facility] 04/28/2024 15:40:47 SARS-COV-2 (COVID-19) vaccine, UNSPECIFIED 02/05/2022 completed Trell Page-Veras null, [facility] 04/28/2024 15:40:55 SARS-COV-2 (COVID-19) vaccine, UNSPECIFIED 10/04/2022 completed Trell Camilo-Veras null, [facility] 04/28/2024 15:41:01 SARS-COV-2 (COVID-19) vaccine, UNSPECIFIED 09/03/2023 completed Trell Page-Veras null, [facility] 04/28/2024 15:41:09 zoster, unspecified formulation 07/15/2022 completed Trell Camilo-Veras null, [facility] 04/28/2024 15:41:26 zoster, unspecified formulation 12/17/2022 completed Trell Edmunds-Veras null, [facility] 04/28/2024 15:41:35 Past Encounters Encounter ID Performer Location Encounter Start Date Encounter Closed Date Diagnosis/Indication Diagnosis SNOMED-CT Code Diagnosis ICD10 Code [id number] CONCHA CASTRO AT [address] [address] 04/20/2024 10:48:45 04/23/2024 15:35:18 Chronic obstructive pulmonary disease 93916548 J44.9 Right pneumothorax 26220 3001 J93.9 Vitamin deficiency 82957 002 E56.9 Constipation 81169588 K5 9.00 Depressive disorder 3548 9007 F32.A Atrial fibrillation 4943 6004 I48.91 Peripheral nerve disease 065428421 G64 Hyperlipidemia 61848412 E78.5 Essential hypertension 18883898 I10 Myelodyspl astic syndrome (clinical) 150384375 D46.9 Chronic back pain 444202 002 G89.29 Anemia 980146140 D64.9 [id number] Rebecca STOREY AT [address] [address] 04/26/2024 10:36:35 04/30/2024 10:10:28 Chronic obstructive pulmonary disease 74402130 J44.9 Right pneumothorax 55879 3001 J93.9 Essential hypertension 11754059 I10 Anemia 554137948 D64.9 Dysuria 78230188 R30.0 [id number] MD CORDELIA Noguera AT [address] [address] 04/28/2024 12:05:21 04/30/2024 10:12:28 Spontaneous pneumothorax 55107581 J93.83 Asthenia 15023584 R53.1 Chronic ob structive pulmonary disease 19663588 J44.1 Constipation 79272932 K5 9.09 Depressive disorder 3548 9007 F33.8 Atrial fibrillation 4943 6004 I48.0 Peripheral nerve disease 914304032 G64 Hyperlipidemia 81394470 E78.2 Essential hypertension 61139117 I10 Myelodyspl astic syndrome (clinical) 099688945 D46.Z Chronic back pain 816531 002 G89.29 [id number] RUSSELL CRUZ AT [address] [address] 04/29/2024 08:34:21 05/03/2024 12:09:48 Dysuria 68147603 R30.0 Right pneumothorax 32592 3001 J93.9 Chronic ob structive pulmonary disease 33425420 J44.9 Essential hypertension 05353314 I10 Anemia 350244206 D64.9 [id number] Rebecca STOREY AT [address] [address] 05/03/2024 08:14:43 05/05/2024 08:53:07 Dysuria 98369563 R30.0 Right pneumothorax 84332 3001 J93.9 Chronic ob structive pulmonary disease 15993607 J44.9 Essential hypertension 76644084 I10 Anemia 110805923 D64.9 Fever 601507351 R50.9 [id number] JACKELYN LORD STOREY AT [address] [address] 05/18/2024 12:06:55 05/19/2024 13:52:04 Chronic obstructive pulmonary disease 91180657 J44.9 Right pneumothorax 96173 3001 J93.9 Vitamin deficiency 54017 002 E56.9 Constipation 89969458 K5 9.00 Depressive disorder 3548 9007 F32.A Atrial fibrillation 4943 6004 I48.91 Peripheral nerve disease 431261144 G64 Hyperlipidemia 71182708 E78.5 Essential hypertension 49592578 I10 Myelodyspl astic syndrome (clinical) 628757273 D46.9 Chronic back pain 974770 002 G89.29 Anemia 146258685 D64.9 [id number] MD CORDELIA Noguera AT [address] [address] 05/21/2024 12:06:59 05/25/2024 09:50:14 Spontaneous pneumothorax 84673848 J93.83 Asthenia 48643772 R53.1 Chronic ob structive pulmonary disease 94866446 J44.1 Atrial fibrillation 4943 6004 I48.0 Myelodyspl astic syndrome (clinical) 297812281 D46.Z Peripheral nerve disease 194636174 G64 Essential hypertension 67516669 I10 Constipation 73037373 K5 9.09 Depressive disorder 3548 9007 F33.8 Hyperlipidemia 42833226 E78.2 Chronic back pain 179594 002 G89.29 [id number] JACKELYN STOREY AT [address] [address] 05/24/2024 12:21:10 05/25/2024 16:11:05 Benign prostatic hyperplasia 898341210 N40.1 [id number] MD CORDELIA Otoole AT [address] [address] 05/28/2024 22:12:48 2024 14:08:55 Orthostatic hypotension 82349484 I95.1 Dyspnea 378468991 R06.02 [id number] RUSSELL CRUZ AT [address] [address] 06/04/2024 10:35:03 06/08/2024 12:55:12 Orthostatic hypotension 42062570 I95.1 Dyspnea 731119939 R06.02 Atrial fibrillation 4943 6004 I48.0 [id number] Bryant STOREY AT [address] [address] 06/07/2024 07:51:58 06/08/2024 13:35:02 Respiratory tract congestion and cough 964718102 R05.9 [id number] Bryant STOREY AT [address] [address] 06/10/2024 07:35:38 06/11/2024 10:26:41 Orthostatic hypotension 13193978 I95.1 Dyspnea 769197686 R06.02 Atrial fibrillation 4943 6004 I48.0 Respirator y tract congestion and cough 748533474 R05.9 Right pneumothorax 51410 3001 J93.9 Chronic ob structive pulmonary disease 66701372 J44.9 Depressive disorder 3548 9007 F32.A Peripheral nerve disease 406861154 G64 Essential hypertension 48470517 I10 Myelodyspl astic syndrome (clinical) 385464036 D46.9 Chronic back pain 264929 002 G89.29 Anemia 821743656 D64.9 [id number] Bryant STOREY AT [address] [address] 06/11/2024 11:09:33 06/14/2024 14:20:01 Allergic conjunctivitis of bilateral eyes 4361466055 53329 H10.13 Acute exac erbation of chronic obstructive pulmonary disease 210317620 J44.1 Right pneumothorax 56336 3001 J93.9 [id number] Bryant STOREY AT [address] [address] 06/12/2024 10:41:43 06/14/2024 14:39:09 Respiratory tract congestion and cough 870204637 R05.9 Anemia 921520183 D64.9 Acute exac erbation of chronic obstructive pulmonary disease 019687797 J44.1 Allergic conjunctivitis of bilateral eyes 2057923504 29883 H10.13 Right pneumothorax 15374 3001 J93.9 Pneumonia 206642681 J18. 9 [id number] Bryant STOREY AT [address] [address] 06/14/2024 07:30:00 06/16/2024 08:46:20 Pneumonia 496693476 J18.9 Acute exac erbation of chronic obstructive pulmonary disease 677634302 J44.1 Right pneumothorax 18548 3001 J93.9 Respirator y tract congestion and cough 619280771 R05.9 Anemia 847474078 D64.9 Allergic conjunctivitis of bilateral eyes 6058971041 77733 H10.13 Myelodyspl astic syndrome (clinical) 812670864 D46.9 Tight chest 66526468 R07 .89 [id number] Bryant STOREY AT [address] [address] 06/16/2024 07:44:58 06/22/2024 09:46:20 Pneumonia 283444677 J18.9 Acute exac erbation of chronic obstructive pulmonary disease 882308927 J44.1 Right pneumothorax 25409 3001 J93.9 Respirator y tract congestion and cough 538062859 R05.9 Tight chest 44043276 R07 .89 [id number] Bryant STOREY AT [address] [address] 06/17/2024 10:08:00 06/22/2024 10:34:00 Myelodysplastic syndrome (clinical) 423338946 D46.9 Anemia 142162395 D64.9 [id number] Bryant STOREY AT [address] [address] 06/22/2024 07:42:12 06/23/2024 14:39:27 Pneumonia 696001763 J18.9 Acute exac erbation of chronic obstructive pulmonary disease 245815077 J44.1 Right pneumothorax 51661 3001 J93.9 Respirator y tract congestion and cough 029167872 R05.9 Tight chest 44022811 R07 .89 Myelodyspl astic syndrome (clinical) 298391309 D46.9 Anemia 118869069 D64.9 Allergic conjunctivitis of bilateral eyes 7845099994 32461 H10.13 Orthostati c hypotension 82555362 I95.1 Atrial fibrillation 4943 6004 I48.0 Chronic ob structive pulmonary disease 74300976 J44.9 Depressive disorder 3548 9007 F32.A Peripheral nerve disease 030580508 G64 Essential hypertension 20147976 I10 Chronic back pain 981512 002 G89.29 [id number] Bryant STOREY AT [address] [address] 06/23/2024 07:14:18 06/24/2024 14:49:38 Pneumonia 162295289 J18.9 Acute exac erbation of chronic obstructive pulmonary disease 690662856 J44.1 Right pneumothorax 43270 3001 J93.9 Respirator y tract congestion and cough 137499642 R05.9 Tight chest 31701422 R07 .89 Myelodyspl astic syndrome (clinical) 660723357 D46.9 Anemia 508975298 D64.9 Allergic conjunctivitis of bilateral eyes 5492455102 04186 H10.13 Orthostati c hypotension 93761056 I95.1 Atrial fibrillation 4943 6004 I48.0 Chronic ob structive pulmonary disease 06815145 J44.9 Depressive disorder 3548 9007 F32.A Peripheral nerve disease 528568429 G64 Essential hypertension 66815150 I10 Chronic back pain 498798 002 G89.29 Hyperlipidemia 01966119 E78.2 Health Concerns Section Related Observation LastModified by Organization Detai ls LastModified Time None Recorded Concern Status LastModified by Organization Details LastModified Time None Recorded Advance Directives Directive Y: Payers Encounter Date Sequence Insurance Name Policy Number Policy Workman Covered Member ID Workman Member ID Guarantor Name 06/14/2024 2 [place] [facility] Edward Courchesne [id number] Edward Courchesne 06/14/2024 1 [place] [employer] Edward N Courchesne [id number] Edward Courchesne 06/16/2024 2 [place] [facility] Edward Courchesne [id number] Edward Courchesne 06/16/2024 1 [place] [employer] Edward N Courchesne [id number] Edward Courchesne 06/17/2024 2 [place] [facility] Edward Courchesne [id number] Edward Courchesne 06/17/2024 1 [place] [facility] Edward N Courchesne [id number] Edward Courchesne 06/22/2024 2 [place] [facility] Edward Courchesne [id number] Edward Courchesne 06/22/2024 1 [place] [facility] Edward N Courchesne [id number] Edward Courchesne 06/23/2024 2 [place] [facility] Edward Courchesne [id number] Edward Courchesne 06/23/2024 1 [place] [facility] Edward N Courchesne [id number] Edward Courchesne Notes Date Note Type Note Provider Name and Address Organization Details Recorded Time 06/14/2024 text/html This is a 79 y.o male being seen for acute rounding visit past medical history of afib on eliquis, COPD/ asthma on 4 L, recurrent pneumothorax, prior smoker, myelodysplastic disease, peripheral neuropathy, chronic back pain, HTN, HLD. Patient seen last week for PNA and COPD exacerbation. Currently on z--demario and augmentin, increase in prednisone and scheduled duobnebsPatient has follow up with thoracic surgery this week but has to be rescheduled due to transportation Patient seen lying in bed in [facility]. He tells me he is feeling better but unsure if related to prednisone increase. He does have mild chest tightness and he states it feels like GERD. No radiation of pain and intermittently. He is agreeable to f/u thoracic surgery [place] which has been rescheduled to Early Jun. Austin_Alessia-Oleg is [address], [address], [place], [address], [employer] 06/14/2024 11:33:43 06/16/2024 text/html This is a 79 y.o male being seen for acute rounding visit past medical history of afib on eliquis, COPD/ asthma on 4 L, recurrent pneumothorax, prior smoker, myelodysplastic disease, peripheral neuropathy, chronic back pain, HTN, HLD. Patient with recurrent pneumothorax with acute onset PNA last week. Completed z-demario with last dose today. Continues on augmentin (last dose 06/18) and steroid taper. He is feeling better today Apt thoracic surgery rescheduled to June. Patient seen lying in bed in [facility]. He tells me he feels better, no more chest congestion but continues with productive cough. He reports almost being out of therapy days and will be discharged home soon. He has no support at home, tells me his family are all decreased. There are concerns if he will have help getting to thoracic apt once d/c due to transportation and there are no other thoracic surgeons closer by that can see him both per patient and nursing. Bhavesh is [address] [facility], [address], [place], [address], [employer] 06/16/2024 11:44:52 06/17/2024 text/html This is a 79 y.o male being seen for acute rounding visit past medical history of afib on eliquis, COPD/ asthma on 4 L, recurrent pneumothorax, prior smoker, myelodysplastic disease, peripheral neuropathy, chronic back pain, HTN, HLD. Nursing tells me patient requesting to see this proposal writer to review meds. Nursing reports he should be on Vitamin B supplementation due to myelodysplastic syndrome. He is on Pyridoxine 50mg qd Patient seen sitting on side of bed. He tells me he was started on Vitamin B6 for anemia from myelodysplastic sydrome and wondering if he was taking it here or if anemia could be worsening to explain his SOB and if med needs to be increased. He tells me he follows Dr. Baldwin every 4-6 months. He is otherwise feeling okay today Bhavesh is [address] [facility], [address], [place], [address], [facility] 06/17/2024 12:14:57 06/22/2024 text/html This is a 79 y.o [...] to the ED for urgent eval at [facility]. He was found with spontaneous pneumothorax [...] he tells me he feels okay today. [facility] is [address] [place] [address], [address], [place], [address], [facility] [employer] 06/22/2024 12:55:26 06/23/2024 text/html This is a 79 y.o male being seen for discharge summary visit past medical history of afib on eliquis, COPD/ asthma on 4 L, recurrent pneumothorax, prior smoker, myelodysplastic disease, peripheral neuropathy, chronic back pain, HTN, HLD. Patient was admitted here on 04/20 for pneumothorax, he was seen on 05/03 for elevated fever of 102 and sent to the ED for urgent eval at [facility]. He was found with spontaneous pneumothorax as well as klebsiella bacteremia due to UTI. He underwent talc pleurodesis on 05.08, pigtail removed on 05/16 by thoracic surgery. Repeat imaging showed mild increase in small right apical pneumothorax but then second repeat showed area was stable. His eliquis was restarted, he was stabilized and felt he could DC back to [facility]. Patient was seen last month for urinary [...] is actually increased from previous BL. Patient is okay to discharge home today with meds and services Patient seen today sitting in bed in [facility]. he tells me he feels okay today and ready for d/c. Reviewed sxs requiring ED eval, patient verbalized understanding Bhavesh is [address] [facility], [address], [place], [address], [facility] [employer] 06/23/2024 10:45:04
--- OUTSIDE RECORDS SUMMARY | 2024-08-26 14:19 | XMS_ITS | Patient Health Record ---
Author Organization Salbador Ybarra III, MD Address [address] [place] [address] Care Team Providers Care Residence Hall Director Name Role Phone Nikita Rivera MD Primary Care Provider Unavail Salbador Fuentes Unavailable [phone] Allergies Allergen (clinical drug ingredient) Drug/Non Drug Allergy documented on EMR Reaction Allergy Type Onset Date Status No Known Drug Allergy Unknown Drug Allergy Active Results Component Value Reference Range Notes Complete Blood Count Auto Di ff Reviewed date:09/13/2023 05:28:10 PM Interpretation: Performing Lab:[facility], [address] [place] [phone] Notes/Report: White Blood Count 6.8 4.8-10.8 X10*3/uL Red Blood Count 3.02 4.60-5.80 X10*6/uL Hemoglobin 11.0 14.0-18.0 g/dl Hematocrit 33.0 42.0-52.0 % Mean Corpuscular Volume 109.3 80.0-98.0 fL Mean Corpuscular Hemoglobin 36.4 27.0-33.0 pg Mean Corpuscular HGB Conc 33.3 31.0-36.0 g/dl Red Cell Distribution Width 15.9 11.0-16.0 % Platelet Count 228 160-400 X10*3/uL Mean Platelet Volume 10.9 9.4-12.4 fL Neutrophils Percent Auto 81.1 45-73 % Imm Gran Pct Auto 0.9 0.0-0.4 % Lymphocytes Percent Auto 11.9 20-40 % Monocytes Percent Auto 4.5 2-11 % Eosinophils Percent Auto 0.6 0-4 % Basophils Percent Auto 1.0 0-2 % NRBC Pct Auto 0.3 0.0-0.2 /100WBC Neutrophils Absolute Auto 5.5 2.0-8.3 x10*3/u L Imm Gran Abs Auto 0.06 0.00-0.03 X10*3/uL Lymphocytes Absolute Auto 0.8 1.2-4.9 X10*3/u L Monocytes Absolute Auto 0.3 0.1-1.2 X10*3/uL Eosinophils Absolute Auto 0.0 0.0-0.4 X10*3/u L Basophils Absolute Auto 0.1 0.0-0.2 X10*3/uL NRBC Abs Auto 0.020 0.0-0.012 X10*3/uL RETIC Reviewed date:09/13/2023 05:28:10 PM Interpretation: Performing Lab:[facility], [address] [place] [phone] Notes/Report: Reticulocytes Absolute 0.051 0.026-0.095 X10*6/ uL Immature Retic Fraction 26.7 2.3-13.4 % Retic HGB Equivalent 37.4 30.0-35.0 pg Reticulocyte Percent 1.7 0.5-1.8 % Ferritin Reviewed date:09/13/2023 05:28:10 PM Interpretation: Performing Lab:[facility], [address] [place] [phone] Notes/Report: Ferritin 227 20-250 ng/mL Complete Blood Count Auto Di ff Reviewed date:02/03/2024 04:59:35 PM Interpretation: Performing Lab:[address] [phone] Notes/Report: White Blood Count 4.9 4.8-10.8 X10*3/uL Red Blood Count 2.78 4.60-5.80 X10*6/uL Hemoglobin 9.8 14.0-18.0 g/dl Hematocrit 30.8 42.0-52.0 % Mean Corpuscular Volume 110.8 80.0-98.0 fL Mean Corpuscular Hemoglobin 35.3 27.0-33.0 pg Mean Corpuscular HGB Conc 31.8 31.0-36.0 g/dl Red Cell Distribution Width 18.1 11.0-16.0 % Platelet Count 217 160-400 X10*3/uL Mean Platelet Volume 10.5 9.4-12.4 fL Neutrophils Percent Auto 56.5 45-73 % Imm Gran Pct Auto 1.0 0.0-0.4 % Lymphocytes Percent Auto 28.3 20-40 % Monocytes Percent Auto 7.1 2-11 % Eosinophils Percent Auto 6.5 0-4 % Basophils Percent Auto 0.6 0-2 % NRBC Pct Auto 0.0 0.0-0.2 /100WBC Neutrophils Absolute Auto 2.8 2.0-8.3 x10*3/u L Imm Gran Abs Auto 0.05 0.00-0.03 X10*3/uL Lymphocytes Absolute Auto 1.4 1.2-4.9 X10*3/u L Monocytes Absolute Auto 0.4 0.1-1.2 X10*3/uL Eosinophils Absolute Auto 0.3 0.0-0.4 X10*3/u L Basophils Absolute Auto 0.0 0.0-0.2 X10*3/uL NRBC Abs Auto 0.000 0.0-0.012 X10*3/uL RETIC Reviewed date:02/03/2024 04:59:35 PM Interpretation: Performing Lab:[facility], [address] [place] [phone] Notes/Report: Reticulocytes Absolute 0.118 0.026-0.095 X10*6/ uL Immature Retic Fraction 31.8 2.3-13.4 % Retic HGB Equivalent 32.6 30.0-35.0 pg Reticulocyte Percent 4.2 0.5-1.8 % Comprehensive Met. Panel Reviewed date:02/03/2024 04:59:35 PM Interpretation: Performing Lab:[address] [phone] Notes/Report: Sodium 145 135-145 mmol/L Potassium 4.7 3.3-5.1 mmol/L Chloride 106 96-108 mmol/L Carbon Dioxide 31 22-29 mmol/L Anion Gap 13 12-20 Blood Urea Nitrogen 17 9-16 mg/dL Creatinine 0.83 0.5-1.4 mg/dL Estimated Glomerular Filt Rate > 60 NOTE: For -Mosoth[place] individuals, multiply the result by 1.210. Chronic Kidney Disease: Estimated GFR < 60 mL/min/1.73m2 Severe Kidney Disease: Estimated GFR < 15 mL/min/1.73m2 Glucose Random 94 60-115 mg/dL Calcium 9.1 8.4-10.2 mg/dL Bilirubin Total 0.3 0.0-1.0 mg/dL Aspartate Amino Transferase 19 5-37 U/L Alanine Aminotransferase 26 0-40 U/L Total Protein 6.4 6.5-8.0 g/dL Albumin Level 3.7 3.5-5.0 g/dL Alkaline Phosphatase 59 39-117 U/L Reason For Referral No Information Medications Medication SIG (Take, Route, Frequency, Duration) Notes Start Date End Date Status dilTIAZem HCl ER Coated Beads 240 MG TAKE 1 CAPSULE BY MOUTH EVERY DAY Oral Active Vitamin B-6 50 MG TAKE ONE TABLET BY M OUTH EVERY DAY Orally once a day for 90 days Active Pregabalin 75 MG 1 capsule Orally Twi ce a day Active Trelegy Ellipta 100-62.5-25 MCG/ACT 1 puff Inhalation Once a day Active Lipitor 10 MG 1 tablet Orally Once a day Active fentaNYL 100 MCG/HR 1 patch to the skin Transdermal Active Advair Diskus 250-50 MCG/DOSE 1 puff Inhalation Twice a day 10/14/2014 Active Ventolin HFA 108 (90 Base) MCG/ACT 2 puffs as needed Inhalation every 4 hrs 10/14/2014 Active Eliquis 5 MG TAKE 1 TABLET BY LARRY TH TWICE A DAY Oral Active Immunizations Vaccine Route Administration Date Status Comme nts Influenza IM Intramuscular 06/10/2014 Administered Influenza IM Intramuscular 05/27/2016 Administered Influenza no Preserv 3 and > IM Intramuscular 06/12/2018 Administered Social History Tobacco Use: Social History Observation Description Date Details (start date - stop date) Former Smoker NA - NA Sex Assigned At : Social History Observation Description Sex Assigned At Male Tobacco Use/Smoking Question Answer Notes Patient is a former smoker How long has it been since you last smoked? 1-5 years Additional Findings: Tobacco Non-User Ex-cigaret te smoker Alcohol Screen Question Answer Notes Did you have a drink containing alcohol in the p ast year? No Points 0 Interpretation Negative Problems Problem Type SNOMED Code ICD Code Onset Dates Problem Status W/U Status Risk Notes Problem 0101692 Former smoker (Z87.891) Active confirmed He is not smoking now and seems motivated to remain abstinent. We discussed a strategy to prevent relapse in the future. Problem 662083662 Overweight (E66.3) Active confirmed His body mass index is 28. He has lost 8 pounds. We reviewed his weight loss strategy. He will continue to lose weight at a rate of one half of a pound per week. Problem Myelodysplastic syndrome (263337744) Myelodysplastic syndrome, unspecified (D46.9) Active confirmed His mean cell volume Is slowly increasing. No change in his blood work has been noted. Current therapy was continued. The vitamin B12 and folic acid levels are normal. Problem Chronic obstructive pulmonary disease (96557090) Chronic obstructive pulmonary disease, unspecified (J44.9) Active confirmed His COPD is stable and he is not wheezing at this time. He says he is not smoking. He denies any coughing or wheezing and shortness of breath is only with prolonged exertion. Problem Osteoarthritis (045253081) Polyosteoarthriti s, unspecified (M15.9) Active confirmed He has been continued on his chronic pain regimen by his primary care physician. Problem 82555871 Idiopathic peripheral neuropathy (G60.9) Active confirmed Problem 61913603 Atrial fibrillation, unspecified type (I48.91) Active confirmed Problem 137049929 Stage 2 chronic kidney disease (N18.2) Active confirmed His renal function is stable. No change in his regimen was needed. His BUN is 17 with a creatinine of 1.1. Vital Signs Heart Rate 72 /min 02/06/2024 Temperature 98.3 degrees Fahrenheit 02/06/2024 Blood pressure diastolic 80 mm Hg 02/06/2024 Height 72 in 02/06/2024 Blood pressure systolic 121 mm Hg 02/06/2024 Weight 211 lbs 02/06/2024 BMI 28.61 kg/m2 02/06/2024 Encounters Encounter Location Date Provider Diagnosis Salbador Ybarra III, MD [address] [place] [address] [place] [address] 09/11/2023 Salbador Ybarra Myelodysplastic syndrome, unspecified D46.9 and Overweight E66.3 Salbador Ybarra III, MD [address] [place] [address] [place] [address] 02/06/2024 Salbador Ybarra Myelodysplastic syndrome, unspecified D46.9 ; Overweight E66.3 ; Chronic obstructive pulmonary disease, unspecified J44.9 ; Polyosteoarthritis, unspecified M15.9 ; Former smoker Z87.891 ; Idiopathic peripheral neuropathy G60.9 and Atrial fibrillation, unspecified type I48.91 Salbador Ybarra III, MD [address] [place] [address] [place] [address] 01/13/2024 Salbador Ybarra Myelodysplastic syndrome, unspecified D46.9 Salbador Ybarra III, MD [address] [place] [address] [place] [address] 04/08/2024 Salbador Ybarra III, MD [address] [place] [address] [place] [address] 08/02/2024 Salbador Ybarra Myelodysplastic syndrome, unspecified D46.9 Assessments Encounter Date Diagnosis (ICD Code) Assessment Notes Treat ment Notes Treatment Clinical Notes 09/11/2023 Overweight (ICD-10 - E66.3) He has gained 4 pounds since his last visit. We reviewed his diet and nutrition. We made aa plan to lose 4 pounds and keep his weight in the normal range. 09/11/2023 Myelodysplastic syndrome, unspecified (ICD-10 - D46.9) His mean cell volume remains stable at 109. No change in his blood work has been noted. Current therapy was continued. 02/06/2024 Overweight (ICD-10 - E66.3) His body mass index is 28. He has lost 8 pounds. We reviewed his weight loss strategy. He will continue to lose weight at a rate of one half of a pound per week. 02/06/2024 Myelodysplastic syndrome, unspecified (ICD-10 - D46.9) His mean cell volume Is slowly increasing. No change in his blood work has been noted. Current therapy was continued. The vitamin B12 and folic acid levels are normal. 01/13/2024 Myelodysplastic syndrome, unspecified (ICD-10 - D46.9) His mean cell volume remains stable at 109. No change in his blood work has been noted. Current therapy was continued. 08/02/2024 Myelodysplastic syndrome, unspecified (ICD-10 - D46.9) His mean cell volume Is slowly increasing. No change in his blood work has been noted. Current therapy was continued. The vitamin B12 and folic acid levels are normal. 02/06/2024 Chronic obstructive pulmonary disease, unspecified (ICD-10 [...] type (ICD-10 - I48.91) Plan Of Treatment Pending Test Test Name Order Date Order: Influenza immunization 06/12/2018 PROFILE, RANDOM (COMPREHENSIVE METABOLIC ) 01/06/2023 PROFILE, RANDOM (COMPREHENSIVE METABOLIC ) 09/05/2021 PROFILE, RANDOM (COMPREHENSIVE METABOLIC ) 07/14/2019 PROFILE, RANDOM (COMPREHENSIVE METABOLIC ) 09/14/2018 PROFILE, RANDOM (COMPREHENSIVE METABOLIC ) 06/12/2018 PROFILE, RANDOM (COMPREHENSIVE METABOLIC ) 09/06/2022 PROFILE, RANDOM (COMPREHENSIVE METABOLIC ) 09/11/2023 PROFILE, RANDOM (COMPREHENSIVE METABOLIC ) 03/06/2022 PROFILE, RANDOM (COMPREHENSIVE METABOLIC ) 05/12/2023 PROFILE, RANDOM (COMPREHENSIVE METABOLIC ) 01/12/2020 PROFILE, RANDOM (COMPREHENSIVE METABOLIC ) 01/11/2019 FERRITIN 05/12/2023 FERRITIN 06/12/2018 B12 03/06/2022 FOLATE 01/06/2023 CBC w DIFF 01/12/2020 CBC w DIFF 01/11/2019 CBC w DIFF 03/06/2022 CBC w DIFF 05/12/2023 CBC w DIFF 09/05/2021 CBC w DIFF 01/06/2023 CBC w DIFF 07/14/2019 CBC w DIFF 09/14/2018 CBC w DIFF 09/06/2022 CBC w DIFF 06/12/2018 RETICULOCYTE COUNT,CORRECTED 09/05/2021 RETICULOCYTE COUNT,CORRECTED 07/14/2019 RETICULOCYTE COUNT,CORRECTED 09/14/2018 RETICULOCYTE COUNT,CORRECTED 06/12/2018 CBC WITH AUTO DIFF 02/06/2024 CBC WITH AUTO DIFF 09/11/2023 RETIC 05/12/2023 RETIC 09/06/2022 RETIC 09/11/2023 Vitamin B12 01/06/2023 Folate 03/06/2022 Insurance Providers Payer Name Payer Address Payer Phone Subscriber Number Group Number Insured Name Patient Relationship to Insured Coverage Start Date Coverage End Date MEDICARE NGS [address] [place] [address] [id number] Jordy Trent Self - patient is the insured MEDICAID [address] [place] [id number] Jordy Trent Self - patient is the insured Medical (General) History Medical History History ICD Code Bilateral rotator cuff surgery COPD Refractory Anemia with ringed sideroblas ts/ Myelodydplastic syndrome diverticulitis on December 18, 2001. Osteoarthitis with chronic back pain peripheral neuropathy Surgical History Surgery Date(Month/Year) bowel resection for diverticulitis 2001
--- OUTSIDE RECORDS SUMMARY | 2024-08-26 14:19 | XMS_ITS ---
Author Organization Salbador Ybarra III, MD Address [address] [place] [address] [place] [address] Care Team Providers Care Euclid Operator Name Role Phone Nikita Rivera MD Primary Care Provider Unavailab Salbador Fuentes Unavailable [phone] REASON FOR VISIT Message Social History Sex Assigned At : Social History Observation Description Sex Assigned At Male Encounters Encounter Location Date Provider Diagnosis Salbador Ybarra III, MD [address] [place] [address] [place] [address] 04/08/2024 Salbador Ybarra Plan Of Treatment No Information Progress Notes * Jordy MCCLELLANDDOB:1944 (78 yo M)Acc No.[id number]:04/08/2024 Patient:?Jordy Mcclelland :1945???Age:78 Y???Sex:Male Address:[address] [place] [address] * true * Date:? Generated for Rejii rachael/Josh/eTransmitting on:?08/26/2024 02:19 PM EST
--- OUTSIDE RECORDS SUMMARY | 2024-08-26 14:20 | XMS_ITS | Continuity of Care Document ---
Author Organization [facility] Address [address] [place] [address] Care Team Providers Care Shoemaking Finisher Name Role Phone [facility] OTHER Assessment No assessment recorded. Plan of Treatment Reminders Order Date Submit [...] Address Organization Details Recorded Time Atrial fibrillation 49364367 Active 2023 CONCHA CASTRO [address], [address], [place], [address], [facility] 4 11:35:25 Chronic obstructive pulmonary disease 86339021 Active 2023 CONCHA CASTRO [address], [address], [place], [address], [facility] 4 11:35:30 Right pneumothorax 615455610 Active 2023 CONCHA CASTRO [address], [address], [place], [address], [facility] 4 11:35:41 Myelodysplasti c syndrome (clinical) 627916689 Active 2023 CONCHA CASTRO [address], [address], [place], [address], [facility] 4 11:36:04 Peripheral nerve disease 480641898 Active 2023 CONCHA CASTRO [address], [address], [place], [address], [facility] 4 11:36:18 Chronic back pain 471430866 Active 2023 CONCHA CASTRO [address], [address], [place], [address], [facility] 4 11:36:27 Essential hypertension 46306249 Active 2023 CONCHA CASTRO [address], [address], [place], [address], [facility] 4 11:36:33 Hyperlipidemia 14338505 Active 2023 CONCHA CASTRO [address], [address], [place], [address], [facility] 4 11:36:48 Vitamin deficiency 07091896 Active 2023 CONCHA CASTRO [address], [place], [address], [facility] 4 11:42:07 Constipation 33756654 Active 2023 CONCHA CASTRO [address], [place], [address], [facility] 4 11:43:41 Depressive disorder 47904509 Active 2023 CONCHA CASTRO [address], [address], [place], [address], [facility] 4 11:44:50 Anemia 713925755 Active 2023 CONCHA CASTRO [address], [place], [address], [facility] 4 11:54:09 Dysuria 67783867 Active 2023 Rebecca Nails [address], [place], [address], [facility] 4 10:57:52 Benign prostatic hyperplasia 140064410 Active 2023 JACKELYN LORD [address], [address], [place], [address], [facility] 12:36:37 Problem Notes None recorded. Medical Equipment [...] Smoking Status Former Smoker CHERRIE CASTROC [address], [address], [place], [address], [employer] [facility] 04/20/2024 11:52:35 Do You Have An Advance Directive? Yes Information not available 04/28/2024 What Is Your Code Status? Full Code Information not available 04/28/2024 How Much Tobacco Do You Smoke? 1 PPD [email or web address] Information not available 04/20/2024 How Many Years Have You Smoked Tobacco? 30 [email or web address] Information not available 04/20/2024 Sex: Unknown Functional [...] influenza, unspecified formulation 06/16/2021 completed Trell Silva [facility] 04/28/2024 15:40:18 influenza, unspecified formulation 06/13/2022 completed Trell Silav [facility] 04/28/2024 15:40:23 SARS-COV-2 (COVID-19) vaccine, UNSPECIFIED 10/04/2020 completed Trell Silva [facility] 04/28/2024 15:40:34 SARS-COV-2 (COVID-19) vaccine, UNSPECIFIED 11/09/2020 completed Trell Silva [facility] 04/28/2024 15:40:41 SARS-COV-2 (COVID-19) vaccine, UNSPECIFIED 07/31/2021 completed Trell Silva [facility] 04/28/2024 15:40:47 SARS-COV-2 (COVID-19) vaccine, UNSPECIFIED 02/05/2022 completed Trell Silva [facility] 04/28/2024 15:40:55 SARS-COV-2 (COVID-19) vaccine, UNSPECIFIED 10/04/2022 completed Trell Silva [facility] 04/28/2024 15:41:01 SARS-COV-2 (COVID-19) vaccine, UNSPECIFIED 09/03/2023 completed Trell Silva null, [facility] 04/28/2024 15:41:09 zoster, unspecified formulation 07/15/2022 completed Trell Ricardo null, [facility] 04/28/2024 15:41:26 zoster, unspecified formulation 12/17/2022 completed Trell Ricardo null, [facility] 04/28/2024 15:41:35 Past Encounters Encounter ID Performer Location Encounter Start Date Encounter Closed Date Diagnosis/Indication Diagnosis SNOMED-CT Code Diagnosis ICD10 Code [id number] JACKELYN STOREY AT [address] [address] 05/18/2024 12:06:55 05/19/2024 13:52:04 Chronic obstructive pulmonary disease 61001689 J44.9 Right pneumothorax 22834 3001 J93.9 Vitamin deficiency 06148 002 E56.9 Constipation 74375568 K5 9.00 Depressive disorder 3548 9007 F32.A Atrial fibrillation 4943 6004 I48.91 Peripheral nerve disease 727100936 G64 Hyperlipidemia 70214996 E78.5 Essential hypertension 12727163 I10 Myelodyspl astic syndrome (clinical) 546309759 D46.9 Chronic back pain 331902 002 G89.29 Anemia 757250155 D64.9 [id number] MD CORDELIA Noguera AT [address] [address] 05/21/2024 12:06:59 05/25/2024 09:50:14 Spontaneous pneumothorax 31391281 J93.83 Asthenia 11635718 R53.1 Chronic ob structive pulmonary disease 97255335 J44.1 Atrial fibrillation 4943 6004 I48.0 Myelodyspl astic syndrome (clinical) 688843858 D46.Z Peripheral nerve disease 321581540 G64 Essential hypertension 46491333 I10 Constipation 31227443 K5 9.09 Depressive disorder 3548 9007 F33.8 Hyperlipidemia 73732137 E78.2 Chronic back pain 884607 002 G89.29 [id number] JACKELYN STOREY AT [address] [address] 05/24/2024 12:21:10 05/25/2024 16:11:05 Benign prostatic hyperplasia 172025837 N40.1 [id number] Linda Winn MD CORDELIA AT [address] [address] 05/28/2024 22:12:48 2024 14:08:55 Orthostatic hypotension 74103338 I95.1 Dyspnea 856781065 R06.02 [id number] RUSSELL CRUZ [place] AT [address] [address] 06/04/2024 10:35:03 06/08/2024 12:55:12 Orthostatic hypotension 02939243 I95.1 Dyspnea 201195254 R06.02 Atrial fibrillation 4943 6004 I48.0 [id number] Bryant ALVAREZLEY AT [address] [address] 06/07/2024 07:51:58 06/08/2024 13:35:02 Respiratory tract congestion and cough 950970132 R05.9 [id number] Bryant ALVARE[place]LEY AT [address] [address] 06/10/2024 07:35:38 06/11/2024 10:26:41 Orthostatic hypotension 13686944 I95.1 Dyspnea 650319159 R06.02 Atrial fibrillation 4943 6004 I48.0 Respirator y tract congestion and cough 184510336 R05.9 Right pneumothorax 70609 3001 J93.9 Chronic ob structive pulmonary disease 85491145 J44.9 Depressive disorder 3548 9007 F32.A Peripheral nerve disease 601351520 G64 Essential hypertension 47119618 I10 Myelodyspl astic syndrome (clinical) 726302287 D46.9 Chronic back pain 713828 002 G89.29 Anemia 469672261 D64.9 [id number] Bryant ALVAREZLEY AT [address] [address] 06/11/2024 11:09:33 06/14/2024 14:20:01 Allergic conjunctivitis of bilateral eyes 6410245177 47096 H10.13 Acute exac erbation of chronic obstructive pulmonary disease 370271872 J44.1 Right pneumothorax 41113 3001 J93.9 [id number] Bryant STOREY AT [address] [address] 06/12/2024 10:41:43 06/14/2024 14:39:09 Respiratory tract congestion and cough 911401955 R05.9 Anemia 427724663 D64.9 Acute exac erbation of chronic obstructive pulmonary disease 993641235 J44.1 Allergic conjunctivitis of bilateral eyes 8233909810 17088 H10.13 Right pneumothorax 04370 3001 J93.9 Pneumonia 708655868 J18. 9 [id number] Bryant STOREY AT [address] [address] 06/14/2024 07:30:00 06/16/2024 08:46:20 Pneumonia 180125796 J18.9 Acute exac erbation of chronic obstructive pulmonary disease 115013149 J44.1 Right pneumothorax 11603 3001 J93.9 Respirator y tract congestion and cough 141601463 R05.9 Anemia 518272917 D64.9 Allergic conjunctivitis of bilateral eyes 4920301511 52634 H10.13 Myelodyspl astic syndrome (clinical) 203554855 D46.9 Tight chest 51434343 R07 .89 [id number] Bryant STOREY AT [address] [address] 06/16/2024 07:44:58 06/22/2024 09:46:20 Pneumonia 405448396 J18.9 Acute exac erbation of chronic obstructive pulmonary disease 949829888 J44.1 Right pneumothorax 63616 3001 J93.9 Respirator y tract congestion and cough 472200952 R05.9 Tight chest 25966297 R07 .89 [id number] Bryant STOREY AT [address] [address] 06/17/2024 10:08:00 06/22/2024 10:34:00 Myelodysplastic syndrome (clinical) 083496203 D46.9 Anemia 259406282 D64.9 Health Concerns Section Related Observation LastModified by Organization Detai ls LastModified Time None Recorded Concern Status LastModified by Organization Details LastModified Time None Recorded Payers Encounter Date Sequence Insurance Name Policy Number Policy Workman Covered Member ID Workman Member ID Guarantor Name 06/17/2024 2 [place] [facility] Jordy Jenkins [id number] Jordy Jenkins 06/17/2024 1 MEDICARE B-[place]: [facility] Jordy Jenkins [id number] Edpeng Jenkins Notes Date Note Type Note Provider Name and Address Organization Details Recorded Time 06/17/2024 text/html This is a 79 y.o male being seen for acute rounding visit past medical history of afib on eliquis, COPD/ asthma on 4 L, recurrent pneumothorax, prior smoker, myelodysplastic disease, peripheral neuropathy, chronic back pain, HTN, HLD. Nursing tells me patient requesting to see this health technical writer to review meds. Nursing reports he [...] otherwise feeling okay today Bhavesh is [address] [facility], [facility] [address], [place], [address], [facility] 06/17/2024 12:14:57
--- OUTSIDE RECORDS SUMMARY | 2024-08-26 14:20 | XMS_ITS | Continuity of Care Document ---
Author Organization [facility] Address [address] [place] [address] Care Team Providers Care Craft Demonstrator Name Role Phone [facility] [facility] OTHER Assessment Encounter Date Assessment Date Assessment LastModified by Organization Details LastModified Time 06/10/2024 06/10/2024 spent 30 minutes reviewing chart, MAR and discussing patient with nursing staff [email or web address] Not available 06/10/2024 10:50:07 Plan of Treatment Reminders Order Date Submit [...] Address Organization Details Recorded Time Atrial fibrillation 98226289 Active 2023 CONCHA CASTRO [address], [address], [place], [address], [facility] [email or web address] [facility] 4 11:35:25 Chronic obstructive pulmonary disease 50250345 Active 2023 CONCHA CASTRO [address], [address], [place], [address], [facility] [employer] 4 11:35:30 Right pneumothorax 142653593 Active 2023 CONCHA CASTRO [address], [address], [place], [address], [facility] [email or web address] [facility] 4 11:35:41 Myelodysplasti c syndrome (clinical) 295873259 Active 2023 [address], [address], [place], [address], [facility] [email or web address] [facility] 4 11:36:04 Peripheral nerve disease 503762865 Active 2023 CON[address] CASTRO [address], [address], [place], [address], [facility] [email or web address] [facility] 4 11:36:18 Chronic back pain 714764611 Active [address], [place], [address], [facility] [email or web address] [facility] 4 11:36:27 Essential hypertension 08161486 Active [address], [place], [address], [facility] [email or web address] [facility] 4 11:36:33 Hyperlipidemia 28881429 Active [address], [place], [address], [facility] [employer] [facility] 4 11:36:48 Vitamin deficiency 59823399 Active 2023 [address] CASTRO [address], [address], [place], [address], [facility] [email or web address] [facility] 4 11:42:07 Constipation 20526246 Active 2023 [address], [place], [address], [facility] [email or web address] [facility] 4 11:43:41 Depressive disorder 65516021 Active 2023 [address], [place], [address], [facility] [email or web address] [facility] 4 11:44:50 Anemia 774957598 Active 2023 [address], [address], [place], [address], [facility] [email or web address] [facility] 4 11:54:09 Dysuria 18965740 Active [address], [place], [address], [facility] [email or web address] [facility] 4 10:57:52 Benign prostatic hyperplasia 192994320 Active 2023 JACKELYN LO [address], [place], [address], [facility] [email or web address] [facility] 4 12:36:37 Problem Notes None [...] Smoking Status Former Smoker CHERRIE CASTROC [address] [facility], [address], [place], [address], [facility] 04/20/2024 11:52:35 Do You Have An Advance Directive? Yes Information not available 04/28/2024 What Is Your Code Status? Full Code Information not available 04/28/2024 How Much Tobacco Do You Smoke? 1 PPD [email or web address] Information not available 04/20/2024 How Many Years [...] unspecified formulation 06/16/2021 completed Trell Silva null, [facility] 04/28/2024 15:40:18 influenza, unspecified formulation 06/13/2022 completed Trell Silva null, [facility] 04/28/2024 15:40:23 SARS-COV-2 (COVID-19) vaccine, UNSPECIFIED 10/04/2020 completed Trell Silva null, [facility] 04/28/2024 15:40:34 SARS-COV-2 (COVID-19) vaccine, UNSPECIFIED 11/09/2020 completed Trell Silva null, [facility] 04/28/2024 15:40:41 SARS-COV-2 (COVID-19) vaccine, UNSPECIFIED 07/31/2021 completed Trell Silva null, [facility] 04/28/2024 15:40:47 SARS-COV-2 (COVID-19) vaccine, UNSPECIFIED 02/05/2022 completed Trell Silva null, [facility] 04/28/2024 15:40:55 SARS-COV-2 (COVID-19) vaccine, UNSPECIFIED 10/04/2022 completed Trell PageIker [facility], [facility] 04/28/2024 15:41:01 SARS-COV-2 (COVID-19) vaccine, UNSPECIFIED 09/03/2023 completed Trell PageIker [facility] 04/28/2024 15:41:09 zoster, unspecified formulation 07/15/2022 completed Trell Ricardo [facility], [facility] 04/28/2024 15:41:26 zoster, unspecified formulation 12/17/2022 completed Trell CamiloJustinRito [facility] 04/28/2024 15:41:35 Past Encounters Encounter ID Performer Location Encounter Start Date Encounter Closed Date Diagnosis/Indication Diagnosis SNOMED-CT Code Diagnosis ICD10 Code [id number] JACKELYN LO CORDELIA AT [address] [address] 05/18/2024 12:06:55 05/19/2024 13:52:04 Chronic obstructive pulmonary disease 33668118 J44.9 Right pneumothorax 05322 3001 J93.9 Vitamin deficiency 05834 002 E56.9 Constipation 27312265 K5 9.00 Depressive disorder 3548 9007 F32.A Atrial fibrillation 4943 6004 I48.91 Peripheral nerve disease 705979912 G64 Hyperlipidemia 01160576 E78.5 Essential hypertension 34316471 I10 Myelodyspl astic syndrome (clinical) 224160720 D46.9 Chronic back pain 731735 002 G89.29 Anemia 059077843 D64.9 [id number] MD CORDELIA Noguera AT [address] [address] 05/21/2024 12:06:59 05/25/2024 09:50:14 Spontaneous pneumothorax 65785788 J93.83 Asthenia 49965907 R53.1 Chronic ob structive pulmonary disease 54535633 J44.1 Atrial fibrillation 4943 6004 I48.0 Myelodyspl astic syndrome (clinical) 757433901 D46.Z Peripheral nerve disease 421696614 G64 Essential hypertension 68796169 I10 Constipation 87458865 K5 9.09 Depressive disorder 3548 9007 F33.8 Hyperlipidemia 08232623 E78.2 Chronic back pain 414453 002 G89.29 [id number] JACKELYN STOREY AT [address] [address] 05/24/2024 12:21:10 05/25/2024 16:11:05 Benign prostatic hyperplasia 835826504 N40.1 [id number] MD CORDELIA Otoole AT [address] [address] 05/28/2024 22:12:48 2024 14:08:55 Orthostatic hypotension 56114556 I95.1 Dyspnea 321021877 R06.02 [id number] RUSSELL CRUZ CORDELIA AT [address] [address] 06/04/2024 10:35:03 06/08/2024 12:55:12 Orthostatic hypotension 53864340 I95.1 Dyspnea 258848197 R06.02 Atrial fibrillation 4943 6004 I48.0 [id number] Bryant STOREY AT [address] [address] 06/07/2024 07:51:58 06/08/2024 13:35:02 Respiratory tract congestion and cough 517117424 R05.9 [id number] Bryant ALVAREZLEY AT [address] [address] 06/10/2024 07:35:38 06/11/2024 10:26:41 Orthostatic hypotension 88157263 I95.1 Dyspnea 454826035 R06.02 Atrial fibrillation 4943 6004 I48.0 Respirator y tract congestion and cough 561575577 R05.9 Right pneumothorax 25487 3001 J93.9 Chronic ob structive pulmonary disease 30531702 J44.9 Depressive disorder 3548 9007 F32.A Peripheral nerve disease 593063543 G64 Essential hypertension 88485015 I10 Myelodyspl astic syndrome (clinical) 196760838 D46.9 Chronic back pain 828978 002 G89.29 Anemia 142284680 D64.9 Health Concerns Section Related Observation LastModified by Organization Detai ls LastModified Time None Recorded Concern Status LastModified by Organization Details LastModified Time None Recorded Payers Encounter Date Sequence Insurance Name Policy Number Policy Workman Covered Member ID Workman Member ID Guarantor Name 06/10/2024 2 [place] [facility] Jordy Jenkins [id number] Jordy Jenkins 06/10/2024 1 [place] B-[place] [facility] Jordy Jenkins [id number] Jordy Jenkins Notes Date Note Type Note Provider Name and Address Organization Details Recorded Time 06/10/2024 text/html This is a 78 y.o male 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 Patient was seen last month for urinary hesitancy and restarted on flomax.Earlier this month he was noted with SOB and hypotension during PT . CXR was non-acute. diltiazem was increased from 120 mg to 240 mg during last hospitalization. D/C summary says can wean back to 120 mg in SNF which was doneHe has a hx of recurrent right pneumothoraces.Per provider noted 05/28 patient reported cardio wanted to do a nuclear stress test, but it has been deferred several times due to rehospitalizations for pneumothorax.Since return on 05/17 his BP has been running low most of the time. And pulse has been <70 consistently, and occ <60.He was seen earlier this week requesting nasal steroid spray for congestion and cough. Yesterday he asked nursing if he could have cough syrup Patient seen lying in bed watching TV in [place]. Supplemental oxygen in place. He tells me the flonase has helped with his congestion but still has not received cough medication for chest congestion. He tells me he is SOB at baseline and slightly worsened with facial congestion and he has to recoup after activity. He otherwise denies any other complaints today A_Kaydenay-Da vis [address], [address], [place], [address], [facility] [employer] 06/10/2024 10:50:09
--- OUTSIDE RECORDS SUMMARY | 2024-08-26 14:20 | XMS_ITS | Continuity of Care Document ---
Author Organization [facility] Address [address] [place] [address] Care Team Providers Care Prosthodontist/Owner Name Role Phone [facility] [facility] OTHER Assessment Encounter Date Assessment Date Assessment LastModified by Organization Details LastModified Time 06/16/2024 06/16/2024 spent 30 minutes reviewing chart, MAR and discussing patient with nursing staff [email or web address] Not available 06/16/2024 09:53:29 Plan of Treatment Reminders Order Date Submit [...] Address Organization Details Recorded Time Atrial fibrillation 55524757 Active 2023 CONCHA CASTRO [address], [address], [place], [address], [facility] [employer] [facility] 4 11:35:25 Chronic obstructive pulmonary disease 26040884 Active 2023 CONCHA CASTRO [address], [address], [place], [address], [facility] [employer] 4 11:35:30 Right pneumothorax 337239528 Active 2023 CONCHA CASTRO [address], [address], [place], [address], [facility] 4 11:35:41 Myelodysplasti c syndrome (clinical) 807768352 Active 2023 CONCHA CASTRO [address], [address], [place], [address], [facility] [employer] [facility] 4 11:36:04 Peripheral nerve disease 075662373 Active 2023 CONCHA CASTRO [address], [address], [place], [address], [facility] [employer] [facility] 4 11:36:18 Chronic back pain 555772059 Active [address], [place], [address], [facility] [employer] [facility] 4 11:36:27 Essential hypertension 00436096 Active [address], [place], [address], [facility] [employer] [facility] 4 11:36:33 Hyperlipidemia 42557957 Active [address], [place], [address], [facility] [employer] [facility] 4 11:36:48 Vitamin deficiency 98696540 Active 2023 CONCHA CASTRO [address], [address], [place], [address], [facility] [employer] [facility] 4 11:42:07 Constipation 63946497 Active 2023 CONCHA CASTRO [address], [address], [place], [address], [facility] [employer] [facility] 4 11:43:41 Depressive disorder 79715658 Active 2023 CONCHA CASTRO [address], [address], [place], [address], [facility] [employer] [facility] 4 11:44:50 Anemia 078114904 Active 2023 CONCHA CASTRO [address], [address], [place], [address], [facility] [employer] [facility] 4 11:54:09 Dysuria 20653613 Active 2023 Rebecca Nails [address], [place], [address], [facility] 4 10:57:52 Benign prostatic hyperplasia 924623130 Active 2023 JACKELYN LO [address], [place], [address], [facility] 4 12:36:37 Problem Notes None recorded. Medical [...] Smoking Status Former Smoker CHERRIE CASTROC [address] [facility], [address], [place], [address], [facility] 04/20/2024 11:52:35 Do You Have An Advance Directive? Yes Information not available 04/28/2024 What Is Your Code Status? Full Code Information not available 04/28/2024 How Much Tobacco Do You Smoke? 1 PPD [email or web address] Information not available 04/20/2024 How Many Years Have You Smoked Tobacco? 30 [email or web address] Information not available 04/20/2024 Sex: Unknown Functional [...] unspecified formulation 06/16/2021 completed Trell Silva null, [facility] 04/28/2024 15:40:18 influenza, unspecified formulation 06/13/2022 completed Trell Silva null, [facility] 04/28/2024 15:40:23 SARS-COV-2 (COVID-19) vaccine, UNSPECIFIED 10/04/2020 completed Trell Silva null, [facility] 04/28/2024 15:40:34 SARS-COV-2 (COVID-19) vaccine, UNSPECIFIED 11/09/2020 completed Trell Silva null, [facility] 04/28/2024 15:40:41 SARS-COV-2 (COVID-19) vaccine, UNSPECIFIED 07/31/2021 completed Trell Silva null, [facility] 04/28/2024 15:40:47 SARS-COV-2 (COVID-19) vaccine, UNSPECIFIED 02/05/2022 completed Trell Silva null, [facility] 04/28/2024 15:40:55 SARS-COV-2 (COVID-19) vaccine, UNSPECIFIED 10/04/2022 completed Trell PageIker [facility], [facility] 04/28/2024 15:41:01 SARS-COV-2 (COVID-19) vaccine, UNSPECIFIED 09/03/2023 completed Trell PageIker [facility] 04/28/2024 15:41:09 zoster, unspecified formulation 07/15/2022 completed Trell Ricardo [facility], [facility] 04/28/2024 15:41:26 zoster, unspecified formulation 12/17/2022 completed Trell CamiloJustinRito [facility] 04/28/2024 15:41:35 Past Encounters Encounter ID Performer Location Encounter Start Date Encounter Closed Date Diagnosis/Indication Diagnosis SNOMED-CT Code Diagnosis ICD10 Code [id number] JACKELYN LO CORDELIA AT [address] [address] 05/18/2024 12:06:55 05/19/2024 13:52:04 Chronic obstructive pulmonary disease 45761960 J44.9 Right pneumothorax 51845 3001 J93.9 Vitamin deficiency 50505 002 E56.9 Constipation 22400381 K5 9.00 Depressive disorder 3548 9007 F32.A Atrial fibrillation 4943 6004 I48.91 Peripheral nerve disease 714635647 G64 Hyperlipidemia 71018717 E78.5 Essential hypertension 35425077 I10 Myelodyspl astic syndrome (clinical) 184386745 D46.9 Chronic back pain 357109 002 G89.29 Anemia 555781422 D64.9 [id number] MD CORDELIA Noguera AT [address] [address] 05/21/2024 12:06:59 05/25/2024 09:50:14 Spontaneous pneumothorax 37626452 J93.83 Asthenia 32594183 R53.1 Chronic ob structive pulmonary disease 35346575 J44.1 Atrial fibrillation 4943 6004 I48.0 Myelodyspl astic syndrome (clinical) 517462039 D46.Z Peripheral nerve disease 103238139 G64 Essential hypertension 72569662 I10 Constipation 70212051 K5 9.09 Depressive disorder 3548 9007 F33.8 Hyperlipidemia 81914476 E78.2 Chronic back pain 095110 002 G89.29 [id number] JACKELYN STOREY AT [address] [address] 05/24/2024 12:21:10 05/25/2024 16:11:05 Benign prostatic hyperplasia 309286247 N40.1 [id number] MD CORDELIA Otoole AT [address] [address] 05/28/2024 22:12:48 2024 14:08:55 Orthostatic hypotension 57591566 I95.1 Dyspnea 737048171 R06.02 [id number] RUSSELL CRUZ CORDELIA AT [address] [address] 06/04/2024 10:35:03 06/08/2024 12:55:12 Orthostatic hypotension 11602709 I95.1 Dyspnea 293510817 R06.02 Atrial fibrillation 4943 6004 I48.0 [id number] Bryant ALVAREZLEY AT [address] [address] 06/07/2024 07:51:58 06/08/2024 13:35:02 Respiratory tract congestion and cough 441498461 R05.9 [id number] Bryant ALVAREZLEY AT [address] [address] 06/10/2024 07:35:38 06/11/2024 10:26:41 Orthostatic hypotension 15466455 I95.1 Dyspnea 442670125 R06.02 Atrial fibrillation 4943 6004 I48.0 Respirator y tract congestion and cough 752549504 R05.9 Right pneumothorax 28105 3001 J93.9 Chronic ob structive pulmonary disease 70526428 J44.9 Depressive disorder 3548 9007 F32.A Peripheral nerve disease 471184354 G64 Essential hypertension 79756573 I10 Myelodyspl astic syndrome (clinical) 996143114 D46.9 Chronic back pain 676405 002 G89.29 Anemia 515538163 D64.9 [id number] Bryant STOREY AT [address] [address] 06/11/2024 11:09:33 06/14/2024 14:20:01 Allergic conjunctivitis of bilateral eyes 8276301376 84765 H10.13 Acute exac erbation of chronic obstructive pulmonary disease 436285360 J44.1 Right pneumothorax 22402 3001 J93.9 [id number] Bryant STOREY AT [address] [address] 06/12/2024 10:41:43 06/14/2024 14:39:09 Respiratory tract congestion and cough 318783042 R05.9 Anemia 979306369 D64.9 Acute exac erbation of chronic obstructive pulmonary disease 772262630 J44.1 Allergic conjunctivitis of bilateral eyes 5910624900 82366 H10.13 Right pneumothorax 64814 3001 J93.9 Pneumonia 333948101 J18. 9 [id number] Bryant STOREY AT [address] [address] 06/14/2024 07:30:00 06/16/2024 08:46:20 Pneumonia 104766392 J18.9 Acute exac erbation of chronic obstructive pulmonary disease 023979560 J44.1 Right pneumothorax 79292 3001 J93.9 Respirator y tract congestion and cough 308241351 R05.9 Anemia 190608092 D64.9 Allergic conjunctivitis of bilateral eyes 5418491916 29225 H10.13 Myelodyspl astic syndrome (clinical) 925410960 D46.9 Tight chest 99128742 R07 .89 [id number] Bryant ALVAREZLEY AT [address] [address] 06/16/2024 07:44:58 06/22/2024 09:46:20 Pneumonia 104367536 J18.9 Acute exac erbation of chronic obstructive pulmonary disease 343961280 J44.1 Right pneumothorax 14469 3001 J93.9 Respirator y tract congestion and cough 736970988 R05.9 Tight chest 29041702 R07 .89 Health Concerns Section Related Observation LastModified by Organization Detai ls LastModified Time None Recorded Concern Status LastModified by Organization Details LastModified Time None Recorded Payers Encounter Date Sequence Insurance Name Policy Number Policy Workman Covered Member ID Workman Member ID Guarantor Name 06/16/2024 2 [place] [facility] Edpeng Jenkins [id number] Edpeng Heardveronica 06/16/2024 1 [place] [employer] Jordy N Alice [id number] Edpeng Jenkins Notes Date Note Type Note Provider Name and Address Organization Details Recorded Time 06/16/2024 text/html This is a 79 y.o [...] June. Patient seen lying in bed in [facility]. He tells me he feels better, no [...] per patient and nursing. Bhavesh is [address] [facility], [address], [place], [address], [facility] [employer] 06/16/2024 11:44:52
--- OUTSIDE RECORDS SUMMARY | 2024-08-26 14:20 | XMS_ITS | Continuity of Care Document ---
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 Lab None recorded. Referral None recorded. Procedures None recorded. Surgeries None recorded. Imaging None recorded. Medication Orders fentanyl 100 mcg/hr transdermal patch 2023 024 [facility], [address] [place] [address], [address], [place], [address], 10:44:30 Patient TargetsNo targets recorded. Patient InstructionsNo instructions recorded. Reason for Referral None Reported. Problems Name Problem SNOMED Code Status Onset Date Resolution Date Notes Provider Name and Address Organization Details Recorded Time Atrial fibrillation 61513017 Active 2023 CONCHA CASTRO [address] , [address], [place], [address], [facility] 4 11:35:25 Chronic obstructive pulmonary disease 53079563 Active 2023 CONCHA CASTRO [address] , [address], [place], [address], [facility] 4 11:35:30 Right pneumothorax 892411822 Active 2023 CONCHA CASTRO [address] , [address], [place], [address], [facility] 4 11:35:41 Myelodysplasti c syndrome (clinical) 871269076 Active [address], [address], [place], [address], [facility] 4 11:36:04 Peripheral nerve disease 851203294 Active [address], [address], [place], [address], [facility] 4 11:36:18 Chronic back pain 672011828 Active [address], [place], [address], [facility] 4 11:36:27 Essential hypertension 26873498 Active [address], [place], [address], [facility] 4 11:36:33 Hyperlipidemia 72435359 Active [address], [place], [address], [facility] 4 11:36:48 Vitamin deficiency 21808173 Active [address], [place], [address], [facility] 4 11:42:07 Constipation 93150829 Active [address], [place], [address], [facility] 4 11:43:41 Depressive disorder 86971286 Active [address], [place], [address], [facility] 4 11:44:50 Anemia 929604103 Active [address], [place], [address], [facility] 4 11:54:09 Dysuria 50421988 Active 2023 Rebecca Nails [address] [facility], [address], [place], [address], [facility] 4 10:57:52 Benign prostatic hyperplasia 271258848 Active 2023 JACKELYN LO [address] [facility], [address], [place], [address], [facility] 4 12:36:37 Problem Notes None recorded. Medical [...] Smoking Status Former Smoker CHERRIE CASTROC [address] [facility], [address], [place], [address], [facility] 04/20/2024 11:52:35 Do You Have An Advance Directive? Yes Information not available 04/28/2024 What Is Your Code Status? Full Code Information not available 04/28/2024 How Much Tobacco Do You Smoke? 1 PPD [email or web address] Information not available 04/20/2024 How Many Years [...] Time influenza, unspecified formulation 06/16/2021 [facility]/28[facility] 15:40:18 influenza, unspecified formulation 06/13/2022 completed Trell Silva [facility] [address] 04/28/2024 15:40:23 SARS-COV-2 (COVID-19) vaccine, UNSPECIFIED 10/04/2020 completed Trell Silva [facility] [address] 04/28/2024 15:40:34 SARS-COV-2 (COVID-19) vaccine, UNSPECIFIED 11/09/2020 completed Trell Silva [facility] [address] 04/28/2024 15:40:41 SARS-COV-2 (COVID-19) vaccine, UNSPECIFIED 07/31/2021 completed Trell Silva [facility] [address] 04/28/2024 15:40:47 SARS-COV-2 (COVID-19) vaccine, UNSPECIFIED 02/05/2022 completed Trell Silva null, [facility] 04/28/2024 15:40:55 SARS-COV-2 (COVID-19) vaccine, UNSPECIFIED 10/04/2022 completed Trell Silva [facility], [facility] 04/28/2024 15:41:01 SARS-COV-2 (COVID-19) vaccine, UNSPECIFIED 09/03/2023 completed Trell Silva [facility], [facility] 04/28/2024 15:41:09 zoster, unspecified formulation 07/15/2022 completed Trell Silva null, [facility] 04/28/2024 15:41:26 zoster, unspecified formulation 12/17/2022 completed Trell Silva [facility], [facility] 04/28/2024 15:41:35 Past Encounters Encounter ID Performer Location Encounter Start Date Encounter Closed Date Diagnosis/Indication Diagnosis SNOMED-CT Code Diagnosis ICD10 Code [id number] JACKELYN STOREY AT [address] [address] 05/18/2024 12:06:55 05/19/2024 13:52:04 Chronic obstructive pulmonary disease 16712518 J44.9 Right pneumothorax 52588 3001 J93.9 Vitamin deficiency 98419 002 E56.9 Constipation 51418723 K5 9.00 Depressive disorder 3548 9007 F32.A Atrial fibrillation 4943 6004 I48.91 Peripheral nerve disease 076199318 G64 Hyperlipidemia 62080869 E78.5 Essential hypertension 68090003 I10 Myelodyspl astic syndrome (clinical) 281953561 D46.9 Chronic back pain 421424 002 G89.29 Anemia 291161753 D64.9 [id number] MD CORDELIA Noguera AT [address] [address] 05/21/2024 12:06:59 05/25/2024 09:50:14 Spontaneous pneumothorax 67088718 J93.83 Asthenia 19455825 R53.1 Chronic ob structive pulmonary disease 76137036 J44.1 Atrial fibrillation 4943 6004 I48.0 Myelodyspl astic syndrome (clinical) 556514720 D46.Z Peripheral nerve disease 377763390 G64 Essential hypertension 08630240 I10 Constipation 90272728 K5 9.09 Depressive disorder 3548 9007 F33.8 Hyperlipidemia 35654270 E78.2 Chronic back pain 363098 002 G89.29 [id number] JACKELYN STOREY AT [address] [address] 05/24/2024 12:21:10 05/25/2024 16:11:05 Benign prostatic hyperplasia 961772092 N40.1 [id number] MD CORDELIA Otoole AT [address] [address] 05/28/2024 22:12:48 2024 14:08:55 Orthostatic hypotension 97174649 I95.1 Dyspnea 428669204 R06.02 [id number] RUSSELL CRUZ [place] AT [address] [address] 06/04/2024 10:35:03 06/08/2024 12:55:12 Orthostatic hypotension 12210604 I95.1 Dyspnea 792039494 R06.02 Atrial fibrillation 4943 6004 I48.0 [id number] Bryant ALVAREZLEY AT [address] [address] 06/07/2024 07:51:58 06/08/2024 13:35:02 Respiratory tract congestion and cough 378975771 R05.9 [id number] Bryant ALVAREZLEY AT [address] [address] 06/10/2024 07:35:38 06/11/2024 10:26:41 Orthostatic hypotension 27310878 I95.1 Dyspnea 425789397 R06.02 Atrial fibrillation 4943 6004 I48.0 Respirator y tract congestion and cough 600738215 R05.9 Right pneumothorax 04071 3001 J93.9 Chronic ob structive pulmonary disease 33728264 J44.9 Depressive disorder 3548 9007 F32.A Peripheral nerve disease 020107246 G64 Essential hypertension 44665412 I10 Myelodyspl astic syndrome (clinical) 118296020 D46.9 Chronic back pain 566691 002 G89.29 Anemia 392706138 D64.9 [id number] Bryant STOREY AT [address] [address] 06/11/2024 11:09:33 06/14/2024 14:20:01 Allergic conjunctivitis of bilateral eyes 8170923390 92231 H10.13 Acute exac erbation of chronic obstructive pulmonary disease 204104974 J44.1 Right pneumothorax 93946 3001 J93.9 [id number] Bryant STOREY AT [address] [address] 06/12/2024 10:41:43 06/14/2024 14:39:09 Respiratory tract congestion and cough 066777979 R05.9 Anemia 897335488 D64.9 Acute exac erbation of chronic obstructive pulmonary disease 681369960 J44.1 Allergic conjunctivitis of bilateral eyes 8707715576 73978 H10.13 Right pneumothorax 95658 3001 J93.9 Pneumonia 068265279 J18. 9 [id number] Bryant STOREY AT [address] [address] 06/14/2024 07:30:00 06/16/2024 08:46:20 Pneumonia 489048850 J18.9 Acute exac erbation of chronic obstructive pulmonary disease 518903673 J44.1 Right pneumothorax 64101 3001 J93.9 Respirator y tract congestion and cough 760048938 R05.9 Anemia 596561367 D64.9 Allergic conjunctivitis of bilateral eyes 7578294564 34382 H10.13 Myelodyspl astic syndrome (clinical) 926103289 D46.9 Tight chest 52081246 R07 .89 Health Concerns Section Related Observation LastModified by Organization Detai ls LastModified Time None Recorded Concern Status LastModified by Organization Details LastModified Time None Recorded Payers Encounter Date Sequence Insurance Name Policy Number Policy Workman Covered Member ID Workman Member ID Guarantor Name 06/14/2024 2 [place] [facility] Jordy Jenkins [id number] Jordy Jenkins 06/14/2024 1 [place] [employer] Jordy Jenkins [id number] Jordy Jenkins Notes Date Note Type Note [...] transportation Patient seen lying in bed in [facility]. He tells me he is feeling better but unsure if related to prednisone increase. He does have mild chest tightness and he states it feels like GERD. No radiation of pain and intermittently. He is agreeable to f/u thoracic surgery [place] which has been rescheduled to Early Jun. [facility] [address] [facility], [address], [place], [address], [facility] 06/14/2024 11:33:43
--- OUTSIDE RECORDS SUMMARY | 2024-08-26 14:20 | XMS_ITS | Continuity of Care Document ---
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 Name Role Phone [facility] OTHER Assessment Encounter Date Assessment Date Assessment LastModified by Organization Details LastModified Time 06/12/2024 06/12/2024 spent 30 minutes reviewing chart, MAR and discussing patient with nursing staff [email or web address] Not available 06/11/2024 21:14:35 Plan of Treatment Reminders Order Date Submit [...] Address Organization Details Recorded Time Atrial fibrillation 92203395 Active 2023 CONCHA CASTRO [address], [address], [place], [address], [facility] 4 11:35:25 Chronic obstructive pulmonary disease 64940805 Active 2023 CONCHA CASTRO [address], [address], [place], [address], [facility] [employer] 4 11:35:30 Right pneumothorax 284141858 Active 2023 CONCHA CASTRO [address], [address], [place], [address], [facility] 4 11:35:41 Myelodysplasti c syndrome (clinical) 344898167 Active 2023 CONCHA CASTRO [address], [address], [place], [address], [facility] 4 11:36:04 Peripheral nerve disease 276268577 Active 2023 CONCHA CASTRO [address], [address], [place], [address], [facility] 4 11:36:18 Chronic back pain 954920772 Active [address], [place], [address], [facility] 4 11:36:27 Essential hypertension 64401464 Active [address], [place], [address], [facility] 4 11:36:33 Hyperlipidemia 98426417 Active [address], [place], [address], [facility] [employer] [facility] 4 11:36:48 Vitamin deficiency 33414825 Active 2023 CONCHA CASTRO [address], [address], [place], [address], [facility] 4 11:42:07 Constipation 69799256 Active 2023 CONCHA CASTRO [address], [address], [place], [address], [facility] 4 11:43:41 Depressive disorder 79383743 Active 2023 CONCHA CASTRO [address], [address], [place], [address], [facility] 4 11:44:50 Anemia 040561437 Active 2023 CONCHA CASTRO [address], [address], [place], [address], [facility] 4 11:54:09 Dysuria 72698833 Active 2023 [address]ails [address], [address], [place], [address], [facility] 4 10:57:52 Benign prostatic hyperplasia 451339944 Active 2023 JACKELYN LO [address], [place], [address], [facility] 4 12:36:37 Problem Notes None recorded. [...] Smoking Status Former Smoker CHERRIE CASTROC [address] [facility], [address], [place], [address], [facility] 04/20/2024 11:52:35 Do You Have An Advance Directive? Yes Information not available 04/28/2024 What Is Your Code Status? Full Code Information not available 04/28/2024 How Much Tobacco Do You Smoke? 1 PPD [email or web address] Information not available 04/20/2024 How Many Years Have You Smoked Tobacco? 30 [email or web address] Information not available 04/20/2024 Sex: Unknown Functional [...] unspecified formulation 06/16/2021 completed Trell Silva null, [facility] 04/28/2024 15:40:18 influenza, unspecified formulation 06/13/2022 completed Trell Silva null, [facility] 04/28/2024 15:40:23 SARS-COV-2 (COVID-19) vaccine, UNSPECIFIED 10/04/2020 completed Trell Silva null, [facility] 04/28/2024 15:40:34 SARS-COV-2 (COVID-19) vaccine, UNSPECIFIED 11/09/2020 completed Trell Silva null, [facility] 04/28/2024 15:40:41 SARS-COV-2 (COVID-19) vaccine, UNSPECIFIED 07/31/2021 completed Trell Silva null, [facility] 04/28/2024 15:40:47 SARS-COV-2 (COVID-19) vaccine, UNSPECIFIED 02/05/2022 completed Trell Silva null, [facility] 04/28/2024 15:40:55 SARS-COV-2 (COVID-19) vaccine, UNSPECIFIED 10/04/2022 completed Trell PageIker [facility], [facility] 04/28/2024 15:41:01 SARS-COV-2 (COVID-19) vaccine, UNSPECIFIED 09/03/2023 completed Trell PageIker [facility] 04/28/2024 15:41:09 zoster, unspecified formulation 07/15/2022 completed Trell Ricardo [facility], [facility] 04/28/2024 15:41:26 zoster, unspecified formulation 12/17/2022 completed Trell CamiloJustinRito [facility] 04/28/2024 15:41:35 Past Encounters Encounter ID Performer Location Encounter Start Date Encounter Closed Date Diagnosis/Indication Diagnosis SNOMED-CT Code Diagnosis ICD10 Code [id number] JACKELYN LO CORDELIA AT [address] [address] 05/18/2024 12:06:55 05/19/2024 13:52:04 Chronic obstructive pulmonary disease 20479027 J44.9 Right pneumothorax 81353 3001 J93.9 Vitamin deficiency 11951 002 E56.9 Constipation 43778422 K5 9.00 Depressive disorder 3548 9007 F32.A Atrial fibrillation 4943 6004 I48.91 Peripheral nerve disease 093935880 G64 Hyperlipidemia 94370035 E78.5 Essential hypertension 02002930 I10 Myelodyspl astic syndrome (clinical) 725950581 D46.9 Chronic back pain 018877 002 G89.29 Anemia 195012516 D64.9 [id number] MD CORDELIA Noguera AT [address] [address] 05/21/2024 12:06:59 05/25/2024 09:50:14 Spontaneous pneumothorax 88519065 J93.83 Asthenia 93145333 R53.1 Chronic ob structive pulmonary disease 74727820 J44.1 Atrial fibrillation 4943 6004 I48.0 Myelodyspl astic syndrome (clinical) 744081319 D46.Z Peripheral nerve disease 981347958 G64 Essential hypertension 68654381 I10 Constipation 27216105 K5 9.09 Depressive disorder 3548 9007 F33.8 Hyperlipidemia 17455671 E78.2 Chronic back pain 077407 002 G89.29 [id number] JACKELYN STOREY AT [address] [address] 05/24/2024 12:21:10 05/25/2024 16:11:05 Benign prostatic hyperplasia 314413350 N40.1 [id number] MD CORDELIA Otoole AT [address] [address] 05/28/2024 22:12:48 2024 14:08:55 Orthostatic hypotension 89271821 I95.1 Dyspnea 672928664 R06.02 [id number] RUSSELL CRUZ CORDELIA AT [address] [address] 06/04/2024 10:35:03 06/08/2024 12:55:12 Orthostatic hypotension 28298095 I95.1 Dyspnea 433823906 R06.02 Atrial fibrillation 4943 6004 I48.0 [id number] Bryant ALVAREZLEY AT [address] [address] 06/07/2024 07:51:58 06/08/2024 13:35:02 Respiratory tract congestion and cough 478858988 R05.9 [id number] Bryant ALVAREZLEY AT [address] [address] 06/10/2024 07:35:38 06/11/2024 10:26:41 Orthostatic hypotension 43659972 I95.1 Dyspnea 720336876 R06.02 Atrial fibrillation 4943 6004 I48.0 Respirator y tract congestion and cough 436503578 R05.9 Right pneumothorax 46862 3001 J93.9 Chronic ob structive pulmonary disease 25954782 J44.9 Depressive disorder 3548 9007 F32.A Peripheral nerve disease 450323747 G64 Essential hypertension 74396669 I10 Myelodyspl astic syndrome (clinical) 067300952 D46.9 Chronic back pain 996494 002 G89.29 Anemia 356253838 D64.9 [id number] Bryant STOREY AT [address] [address] 06/11/2024 11:09:33 06/14/2024 14:20:01 Allergic conjunctivitis of bilateral eyes 5364707298 09156 H10.13 Acute exac erbation of chronic obstructive pulmonary disease 386394535 J44.1 Right pneumothorax 24276 3001 J93.9 [id number] Bryant STOREY AT [address] [address] 06/12/2024 10:41:43 06/14/2024 14:39:09 Respiratory tract congestion and cough 327861124 R05.9 Anemia 579927604 D64.9 Acute exac erbation of chronic obstructive pulmonary disease 747546707 J44.1 Allergic conjunctivitis of bilateral eyes 5404889418 52782 H10.13 Right pneumothorax 73293 3001 J93.9 Pneumonia 596199039 J18. 9 Health Concerns Section Related Observation LastModified by Organization Detai ls LastModified Time None Recorded Concern Status LastModified by Organization Details LastModified Time None Recorded Payers Encounter Date Sequence Insurance Name Policy Number Policy Workman Covered Member ID Workman Member ID Guarantor Name 06/12/2024 2 [place] [facility] Edward Courchesne [id number] Edward Courchesne 06/12/2024 1 [place] [employer] Edward N Courchesne [id number] Edward Courchesne Notes Date Note Type Note Provider Name and Address Organization Details Recorded Time 06/12/2024 text/html This is a 78 y.o male being seen for acute rounding visit past medical history of afib on eliquis, COPD/ asthma on 4 L, recurrent pneumothorax, prior smoker, myelodysplastic disease, peripheral neuropathy, chronic back pain, HTN, HLD. Patient was seen yesterday for concerns of COPD exacerbation. CXR revealed modest patchy airspace disease and PNA should be considered. Right apical lateral pneumothorax, recommend CT. Has had recent CT. Patient has follow up with thoracic surgery next week but staff tell me they need to reschedule due to transportation issues. Provider is based out of [place]. He was started on z-demario and doxycycline yesterday in addition to increase in prednisone burst and scheduled duonebs. Patient seen lying in bed in [facility] with supplemental oxygen. Patient feeling slightly better today. He was informed about lack of transportation to thoracic surgery f/u friday. he tells me he has no family but has a friend and will ask him. If he cant obtain transportation apt will be rescheduled [facility] is [address] [facility], [address], [place], [address], [facility] [employer] 06/12/2024 10:47:55
--- OUTSIDE RECORDS SUMMARY | 2024-08-26 14:21 | XMS_ITS | Continuity of Care Document ---
Author Organization [facility] Address [address] [place] [address] Care Team Providers Care Professional Skater Name Role Phone [facility] OTHER Assessment Encounter Date Assessment Date Assessment LastModified by Organization Details LastModified Time 06/04/2024 06/04/2024 Spent 20 reviewing records, seeing pt, consulting with staff and documenting [email or web address] Not available 06/04/2024 15:38:01 Plan of Treatment Reminders Order Date Submit [...] Address Organization Details Recorded Time Atrial fibrillation 33404859 Active 2023 CONCHA CASTRO [address], [address], [place], [address], [facility] 4 11:35:25 Chronic obstructive pulmonary disease 05000365 Active 2023 CONCHA CASTRO [address], [address], [place], [address], [facility] 4 11:35:30 Right pneumothorax 046348187 Active 2023 CONCHA CASTRO [address], [address], [place], [address], [facility] [facility] 4 11:35:41 Myelodysplasti c syndrome (clinical) 984121356 Active 2023 CONCHA CASTRO [address], [address], [place], [address], [facility] 4 11:36:04 Peripheral nerve disease 156499502 Active 2023 CONCHA CASTRO [address], [address], [place], [address], [facility] 4 11:36:18 Chronic back pain 016409336 Active 2023 CONCHA CASTRO [address], [address], [place], [address], [facility] 4 11:36:27 Essential hypertension 17094942 Active 2023 CONCHA CASTRO [address], [address], [place], [address], [facility] 4 11:36:33 Hyperlipidemia 11086828 Active 2023 CONCHA CASTRO [address], [address], [place], [address], [facility] 4 11:36:48 Vitamin deficiency 28940666 Active 2023 CONCHA CASTRO [address], [address], [place], [address], [facility] 4 11:42:07 Constipation 72122837 Active 2023 CONCHA CASTRO [address], [address], [place], [address], [facility] 4 11:43:41 Depressive disorder 75464896 Active 2023 CONCHA CASTRO [address], [address], [place], [address], [facility] 4 11:44:50 Anemia 602760088 Active 2023 CONCHA CASTRO [address], [address], [place], [address], [facility] 4 11:54:09 Dysuria 17164602 Active 2023 Rebecca Nails [address], [address], [place], [address], [facility] [employer] 4 10:57:52 Benign prostatic hyperplasia 097488192 Active 2023 JACKELYN LO [address], [place], [address], [facility] [facility] 4 12:36:37 Problem Notes None [...] Available Not Available Not Avai lable Vitals Date Recorded Body height Body temperature Respiratory rate Heart rate Oxygen saturation Oxygen saturation in Arterial blood by Pulse oximetry Systolic blood pressure Diastolic blood pressure Provider Name and Address Organization Details Last Updated DateTime 4 180.34 cm 97.2 [degF] 22 /min 68 /min 96 % 96 % 117 mm[Hg] 58 mm[Hg] RUSSELL CRUZ [address] [facility], [address], [place], [address], [facility] 4 16:00:36 Social History Question Answer Notes LastModified by Organizat ion Details LastModified Time Tobacco Smoking Status Former Smoker CHERRIE CASTROC [address] [facility] [facility], [address], [place], [address], [facility] 04/20/2024 11:52:35 Do You Have An Advance Directive? Yes Information not available 04/28/2024 What Is Your Code Status? Full Code Information not available 04/28/2024 How Much Tobacco Do You Smoke? 1 PPD [email or web address] Information not available 04/20/2024 How Many Years Have You Smoked Tobacco? 30 [email or web address] Information not available 04/20/2024 Sex: Unknown Functional [...] unspecified formulation 06/16/2021 completed Trell Silva null, [facility] 04/28/2024 15:40:18 influenza, unspecified formulation 06/13/2022 completed Trell cancino, [facility] 04/28/2024 15:40:23 SARS-COV-2 (COVID-19) vaccine, UNSPECIFIED 10/04/2020 balwinder cancino, [facility] 04/28/2024 15:40:34 SARS-COV-2 (COVID-19) vaccine, UNSPECIFIED 11/09/2020 balwinder cancino, [facility] 04/28/2024 15:40:41 SARS-COV-2 (COVID-19) vaccine, UNSPECIFIED 07/31/2021 completed Trell Silva null, [facility] 04/28/2024 15:40:47 SARS-COV-2 (COVID-19) vaccine, UNSPECIFIED 02/05/2022 completed Trell Silva null, [facility] 04/28/2024 15:40:55 SARS-COV-2 (COVID-19) vaccine, UNSPECIFIED 10/04/2022 [facility] 15:41:01 SARS-COV-2 (COVID-19) vaccine, UNSPECIFIED 09/03/2023 completed Trell Silva [facility], [facility] 04/28/2024 15:41:09 zoster, unspecified formulation 07/15/2022 completed Trell Silva [facility], [facility] 04/28/2024 15:41:26 zoster, unspecified formulation 12/17/2022 completed Trell Silva [facility], [facility] 04/28/2024 15:41:35 Past Encounters Encounter ID Performer Location Encounter Start Date Encounter Closed Date Diagnosis/Indication Diagnosis SNOMED-CT Code Diagnosis ICD10 Code [id number] JACKELYN STOREY AT [address] [address] 05/18/2024 12:06:55 05/19/2024 13:52:04 Chronic obstructive pulmonary disease 48175156 J44.9 Right pneumothorax 05096 3001 J93.9 Vitamin deficiency 27567 002 E56.9 Constipation 13722154 K5 9.00 Depressive disorder 3548 9007 F32.A Atrial fibrillation 4943 6004 I48.91 Peripheral nerve disease 756179206 G64 Hyperlipidemia 05444277 E78.5 Essential hypertension 11418021 I10 Myelodyspl astic syndrome (clinical) 134422728 D46.9 Chronic back pain 458359 002 G89.29 Anemia 682657481 D64.9 [id number] MD CORDELIA Noguera AT [address] [address] 05/21/2024 12:06:59 05/25/2024 09:50:14 Spontaneous pneumothorax 28086835 J93.83 Asthenia 63826715 R53.1 Chronic ob structive pulmonary disease 00348839 J44.1 Atrial fibrillation 4943 6004 I48.0 Myelodyspl astic syndrome (clinical) 783273026 D46.Z Peripheral nerve disease 953641158 G64 Essential hypertension 87228923 I10 Constipation 32132628 K5 9.09 Depressive disorder 3548 9007 F33.8 Hyperlipidemia 59877966 E78.2 Chronic back pain 021801 002 G89.29 [id number] JACKELYN STOREY AT [address] [address] 05/24/2024 12:21:10 05/25/2024 16:11:05 Benign prostatic hyperplasia 976467348 N40.1 [id number] MD CORDELIA Otoole AT [address] [address] 05/28/2024 22:12:48 2024 14:08:55 Orthostatic hypotension 41862236 I95.1 Dyspnea 999857395 R06.02 [id number] RUSSELL CRUZ AT [address] [address] 06/04/2024 10:35:03 06/08/2024 12:55:12 Orthostatic hypotension 06924292 I95.1 Dyspnea 761454711 R06.02 Atrial fibrillation 4943 6004 I48.0 Health Concerns Section Related Observation LastModified by Organization Detai ls LastModified Time None Recorded Concern Status LastModified by Organization Details LastModified Time None Recorded Payers Encounter Date Sequence Insurance Name Policy Number Policy Workman Covered Member ID Workman Member ID Guarantor Name 06/04/2024 2 [place] Jordy Jenkins [id number] Jordy Jenkins 06/04/2024 1 [place] [employer] Jordy Jenkins [id number] Jordy Jenkins Notes Date Note Type Note Provider Name and Address Organization Details Recorded Time 06/04/2024 text/html This is a 78 y.o male with a past medical history of afib on eliquis, COPD/ asthma on 4 L, recurrent pneumothorax, prior smoker, myelodysplastic disease, peripheral neuropathy, chronic back pain, HTN, HLD. Patient here for rehab due to right sided pneumothorax, acute on chronic respiratory failure. Seen for acute rounding visit. He is stable with baseline shortness of breath, he reports therapy is going ok but progression is slow d/t dyspnea, he has to take frequent rest breaks. He asked me to order eye gtts that he was previously taking after lens replacement due to glaucoma, but he could not remember the name, he has med at home and will update provider with med name so it can be ordered. RUSSELL CRUZ [address] [place] [address], [address], [place], [address], [facility] - [employer] 06/04/2024 16:15:00
--- OUTSIDE RECORDS SUMMARY | 2024-08-26 14:21 | XMS_ITS | Continuity of Care Document ---
Author Organization [facility] Address [address] [place] [address] Care Team Providers Care Human Resources Administrator Name Role Phone [facility] OTHER Assessment No assessment recorded. Plan [...] Address Organization Details Recorded Time Atrial fibrillation 05078922 Active 2023 CONCHA CASTRO [address], [address], [place], [address], [facility] [employer] 4 11:35:25 Chronic obstructive pulmonary disease 29651884 Active 2023 CONCHA CASTRO [address], [address], [place], [address], [facility] [employer] 4 11:35:30 Right pneumothorax 821334288 Active 2023 CONCHA CASTRO [address], [address], [place], [address], [facility] [employer] 4 11:35:41 Myelodysplasti c syndrome (clinical) 570887886 Active 2023 CONCHA CASTRO [address], [address], [place], [address], [facility] [employer] 4 11:36:04 Peripheral nerve disease 939924292 Active 2023 CONCHA CASTRO [address], [address], [place], [address], [facility] [employer] [facility] 4 11:36:18 Chronic back pain 843939844 Active 2023 CONCHA CASTRO [address], [address], [place], [address], [facility] 4 11:36:27 Essential hypertension 12163988 Active 2023 CONCHA CASTRO [address], [address], [place], [address], [facility] 4 11:36:33 Hyperlipidemia 57640929 Active 2023 CONCHA CASTRO [address], [address], [place], [address], [facility] [employer] [facility] 4 11:36:48 Vitamin deficiency 90518504 Active 2023 CONCHA CASTRO [address], [address], [place], [address], [facility] 4 11:42:07 Constipation 54321394 Active 2023 CONCHA CASTRO [address], [address], [place], [address], [facility] [employer] [facility] 4 11:43:41 Depressive disorder 29520554 Active 2023 CONCHA CASTRO [address], [address], [place], [address], [facility] [employer] [facility] 4 11:44:50 Anemia 613615016 Active 2023 CONCHA CASTRO [address], [address], [place], [address], [facility] 4 11:54:09 Dysuria 42791432 Active 2023 Rebecca Nails [address], [address], [place], [address], [facility] 4 10:57:52 Benign prostatic hyperplasia 196371640 Active 2023 JACKELYN LORD [address], [address], [place], [address], [facility] 12:36:37 Problem Notes None recorded. Medical [...] Smoking Status Former Smoker CHERRIE CASTROC [address], [address], [place], [address], [employer] [facility] 04/20/2024 11:52:35 Do You Have An Advance Directive? Yes Information not available 04/28/2024 What Is Your Code Status? Full Code Information not available 04/28/2024 How Much Tobacco Do You Smoke? 1 PPD [email or web address] Information not available 04/20/2024 How Many Years Have You Smoked Tobacco? 30 [email or web address] Information not available 04/20/2024 Sex: Unknown Functional [...] influenza, unspecified formulation 06/16/2021 completed Trell Silva [facility] 04/28/2024 15:40:18 influenza, unspecified formulation 06/13/2022 completed Trell Silva [facility] 04/28/2024 15:40:23 SARS-COV-2 (COVID-19) vaccine, UNSPECIFIED 10/04/2020 completed Trell Silva [facility] 04/28/2024 15:40:34 SARS-COV-2 (COVID-19) vaccine, UNSPECIFIED 11/09/2020 completed Trell Silva [facility] 04/28/2024 15:40:41 SARS-COV-2 (COVID-19) vaccine, UNSPECIFIED 07/31/2021 completed Trell Silva [facility] 04/28/2024 15:40:47 SARS-COV-2 (COVID-19) vaccine, UNSPECIFIED 02/05/2022 completed Trell Silva [facility] 04/28/2024 15:40:55 SARS-COV-2 (COVID-19) vaccine, UNSPECIFIED 10/04/2022 completed Trell Silva [facility] 04/28/2024 15:41:01 SARS-COV-2 (COVID-19) vaccine, UNSPECIFIED 09/03/2023 completed Trell Silva null, [facility] 04/28/2024 15:41:09 zoster, unspecified formulation 07/15/2022 completed Trell Ricardo null, [facility] 04/28/2024 15:41:26 zoster, unspecified formulation 12/17/2022 completed Trell Ricardo null, [facility] 04/28/2024 15:41:35 Past Encounters Encounter ID Performer Location Encounter Start Date Encounter Closed Date Diagnosis/Indication Diagnosis SNOMED-CT Code Diagnosis ICD10 Code [id number] JACKELYN STOREY AT [address] [address] 05/18/2024 12:06:55 05/19/2024 13:52:04 Chronic obstructive pulmonary disease 20952994 J44.9 Right pneumothorax 84896 3001 J93.9 Vitamin deficiency 11325 002 E56.9 Constipation 64600360 K5 9.00 Depressive disorder 3548 9007 F32.A Atrial fibrillation 4943 6004 I48.91 Peripheral nerve disease 195856244 G64 Hyperlipidemia 69939116 E78.5 Essential hypertension 43395107 I10 Myelodyspl astic syndrome (clinical) 736584113 D46.9 Chronic back pain 165977 002 G89.29 Anemia 953673064 D64.9 [id number] MD CORDLEIA Noguera AT [address] [address] 05/21/2024 12:06:59 05/25/2024 09:50:14 Spontaneous pneumothorax 39029977 J93.83 Asthenia 02067515 R53.1 Chronic ob structive pulmonary disease 46839504 J44.1 Atrial fibrillation 4943 6004 I48.0 Myelodyspl astic syndrome (clinical) 342165304 D46.Z Peripheral nerve disease 815631117 G64 Essential hypertension 57286803 I10 Constipation 45354325 K5 9.09 Depressive disorder 3548 9007 F33.8 Hyperlipidemia 51101605 E78.2 Chronic back pain 832086 002 G89.29 [id number] JACKELYN STOREY AT [address] [address] 05/24/2024 12:21:10 05/25/2024 16:11:05 Benign prostatic hyperplasia 735204866 N40.1 [id number] MD CORDELIA Otoole AT [address] [address] 05/28/2024 22:12:48 2024 14:08:55 Orthostatic hypotension 75227440 I95.1 Dyspnea 788495575 R06.02 [id number] RUSSELL CRUZ AT [address] [address] 06/04/2024 10:35:03 06/08/2024 12:55:12 Orthostatic hypotension 05773633 I95.1 Dyspnea 580505292 R06.02 Atrial fibrillation 4943 6004 I48.0 [id number] AustinNellieAlessia STOREY AT [address] [address] 06/07/2024 07:51:58 06/08/2024 13:35:02 Respiratory tract congestion and cough 837045573 R05.9 Health Concerns Section Related Observation LastModified by Organization Detai ls LastModified Time None Recorded Concern Status LastModified by Organization Details LastModified Time None Recorded Payers Encounter Date Sequence Insurance Name Policy Number Policy Workman Covered Member ID Workman Member ID Guarantor Name 06/07/2024 2 [place] [facility] Edward Courchesne [id number] [facility] 06/07/2024 1 [place] [email or web address] Edward N Courchesne [id number] [facility] Notes Date Note Type Note Provider Name and Address Organization Details Recorded Time 06/07/2024 text/html This is a 78 y.o male being seen for acute rounding visit past medical history of afib on eliquis, COPD/ asthma on 4 L, recurrent pneumothorax, prior smoker, myelodysplastic disease, peripheral neuropathy, chronic back pain, HTN, HLD. Patient seen sitting in bed eating lunch in [facility]. He tells me he is doing fine but would like a nasal spray to open his nasal passages. He currently has saline spray but tells me its ineffective Nursing reports c/o nasal congestion and cough and asking for medication Bhavesh is [address], [address], [place], [address], [facility] 06/07/2024 12:27:36
--- OUTSIDE RECORDS SUMMARY | 2024-08-26 14:22 | XMS_ITS ---
Author Name [facility] Organization Unknown Results Test Name/Text Value Interpretation Date Range Source Calcium SerPl-mCnc 9.5mg/dL Normal [id number] 8.7 - 10 .5 [facility] BUN SerPl-mCnc 14mg/dL Normal [id number] 8 - 21 HH CCT Creat SerPl-mCnc 1mg/dL Normal [id number] 0.5 - 1.3 H[facility] GFR/BSA.pred SerPlBld FGF-WKA-WpDGku 78 Normal [id number] 59 - HHCCT Chloride SerPl-sCnc 96mmol/L Below low normal 416530671814 98 - 107 [facility] BUN/Creat SerPl 14Ratio Normal [id number] 10 - 25 H HCCT CO2 SerPl-sCnc 34mmol/L Above high normal [id number] 22 - 33 [facility] Anion Gap Bld-sCnc 7 Normal [id number] 7 - 17 [facility] Potassium SerPl-sCnc 4.4mmol/L Normal [id number] 3.4 - 5.3 [facility]CT Glucose SerPl-mCnc 87mg/dL Normal [id number] 65 - 99 [facility] Sodium SerPl-sCnc 137mmol/L Normal [id number] 136 - 145 H[facility] RBC num Bld Auto 2.76Mil/uL Below low normal [id number] 4. 5 - 6.2 [facility] RDW RBC Auto-Rto 16.3% Above high normal [id number] 11.5 - 14.5 HHCCT PMV Bld Auto 10.7fL Normal [id number] 7.5 - 12.[address] MCH RBC Qn Auto 32.6pg Above high normal [id number] 27 - 31 [facility]CT WBC num Bld Auto 5.9Thou/uL Normal [id number] 4 - 11 [facility] Platelet num Bld Auto 276Thou/uL Normal [id number] 150 - 450 [facility]CT MCHC RBC Auto-mCnc 30.9g/dL Normal 30 - 36 HHCCT Hct VFr Bld Auto 29.1% Below low normal [id number] 39 - 54 HHCCT MCV RBC Auto 105fL Above high normal 80 - 1 00 HHCCT Hgb Bld-mCnc 9g/dL Below low normal 13 - 17 .7 HHCCT Calcium SerPl-mCnc 9.3mg/dL Normal 8.7 - 10 .5 HHCCT BUN SerPl-mCnc 16mg/dL Normal 8 - 21 HH CCT Creat SerPl-mCnc 1mg/dL Normal 0.5 - 1.3 HHCCT GFR/BSA.pred SerPlBld FKF-RRV-SrNMed 78 Normal 59 - HHCCT Chloride SerPl-sCnc 98mmol/L Normal 98 - 107 HHCCT BUN/Creat SerPl 16Ratio Normal 10 - 25 H HCCT CO2 SerPl-sCnc 32mmol/L Normal 22 - 33 HH CCT Anion Gap Bld-sCnc 9 Normal 7 - 17 HHCCT Potassium SerPl-sCnc 4.4mmol/L Normal 3.4 - 5.3 HHCCT Glucose SerPl-mCnc 94mg/dL Normal 65 - 99 HHCCT Sodium SerPl-sCnc 139mmol/L Normal [id number] 136 - 145 HHCCT RBC num Bld Auto 2.74Mil/uL Below low normal [id number] 4. 5 - 6.2 HHCCT RDW RBC Auto-Rto 16.4% Above high normal [id number] 11.5 - 14.5 HHCCT PMV Bld Auto 10fL Normal [id number] 7.5 - 12.[address] MCH RBC Qn Auto 32.5pg Above high normal [id number] 27 - 31 HHCCT WBC num Bld Auto 7.4Thou/uL Normal [id number] 4 - 11 H[facility]CT Platelet num Bld Auto 268Thou/uL Normal [id number] 150 - 450 H[facility]CT MCHC RBC Auto-mCnc 30.8g/dL Normal 30 - 36 HHCCT Hct VFr Bld Auto 28.9% Below low normal 39 - 54 HHCCT MCV RBC Auto 106fL Above high normal 80 - 1 00 HHCCT Hgb Bld-mCnc 8.9g/dL Below low normal 13 - 17 .7 HHCCT Calcium SerPl-mCnc 9.5mg/dL Normal 8.7 - 10 .5 HHCCT BUN SerPl-mCnc 19mg/dL Normal 8 - 21 HH CCT Creat SerPl-mCnc 0.9mg/dL Normal 0.5 - 1.3 HHCCT GFR/BSA.pred SerPlBld WZR-POO-ZbGSzo 89 Normal [id number] 59 - HHCCT Chloride SerPl-sCnc 98mmol/L Normal 98 - 107 HHCCT BUN/Creat SerPl 21Ratio Normal 10 - 25 H HCCT CO2 SerPl-sCnc 31mmol/L Normal 22 - 33 HH CCT Anion Gap Bld-sCnc 11 Normal 7 - 17 HHCCT Potassium SerPl-sCnc 4.9mmol/L Normal 3.4 - 5.3 HHCCT Glucose SerPl-mCnc 110mg/dL Above high normal 65 - 99 HHCCT Sodium SerPl-sCnc 140mmol/L Normal 136 - 145 HHCCT RBC num Bld Auto 2.94Mil/uL Below low normal [id number] 4. 5 - 6.2 HHCCT RDW RBC Auto-Rto 16.3% Above high normal [id number] 11.5 - 14.5 HHCCT PMV Bld Auto 10.4fL Normal [id number] 7.5 - 12.[address] MCH RBC Qn Auto 32.3pg Above high normal [id number] 27 - 31 HHCCT WBC num Bld Auto 6.7Thou/uL Normal [id number] 4 - 11 HHCCT Platelet num Bld Auto 321Thou/uL Normal 150 - 450 HHCCT MCHC RBC Auto-mCnc 30.6g/dL Normal 30 - 36 HHCCT Hct VFr Bld Auto 31% Below low normal 39 - 54 HHCCT MCV RBC Auto 105fL Above high normal 80 - 1 00 HHCCT Hgb Bld-mCnc 9.5g/dL Below low normal 13 - 17 .7 HHCCT Magnesium SerPl-mCnc 2.1mg/dL Normal 1.6 - 2.7 HHCCT Calcium SerPl-mCnc 9.5mg/dL Normal 8.7 - 10 .5 HHCCT BUN SerPl-mCnc 19mg/dL Normal 8 - 21 HH CCT Creat SerPl-mCnc 1mg/dL Normal 0.5 - 1.3 HHCCT GFR/BSA.pred SerPlBld CZE-YSY-LiAZvd 78 Normal 59 - HHCCT Chloride SerPl-sCnc 97mmol/L Below low normal 98 - 107 HHCCT BUN/Creat SerPl 19Ratio Normal 10 - 25 H HCCT CO2 SerPl-sCnc 32mmol/L Normal 22 - 33 HH CCT Anion Gap Bld-sCnc 10 Normal 7 - 17 HHCCT Potassium SerPl-sCnc 4.3mmol/L Normal 3.4 - 5.3 HHCCT Glucose SerPl-mCnc 98mg/dL Normal 65 - 99 HHCCT Sodium SerPl-sCnc 139mmol/L Normal 136 - 145 HHCCT RBC num Bld Auto 2.82Mil/uL Below low normal 4. 5 - 6.2 HHCCT RDW RBC Auto-Rto 16.5% Above high normal 11.5 - 14.5 HHCCT PMV Bld Auto 10.2fL Normal 7.5 - 12.[address] MCH RBC Qn Auto 31.9pg Above high normal [id number] 27 - 31 HHCCT WBC num Bld Auto 5.4Thou/uL Normal [id number] 4 - 11 HHCCT Platelet num Bld Auto 287Thou/uL Normal [id number] 150 - 450 HHCCT MCHC RBC Auto-mCnc 30.9g/dL Normal [id number] 30 - 36 HHCCT Hct VFr Bld Auto 29.1% Below low normal [id number] 39 - 54 HHCCT MCV RBC Auto 103fL Above high normal [id number] 80 - 1 00 HHCCT Hgb Bld-mCnc 9g/dL Below low normal [id number] 13 - 17 .7 HHCCT RBC num Bld Auto 3.02Mil/uL Below low normal [id number] 4. 5 - 6.2 HHCCT RDW RBC Auto-Rto 16.5% Above high normal [id number] 11.5 - 14.5 HHCCT PMV Bld Auto 10.3fL Normal [id number] 7.5 - 12.[address] MCH RBC Qn Auto 32.1pg Above high normal [id number] 27 - 31 HHCCT WBC num Bld Auto 8Thou/uL Normal [id number] 4 - 11 HHCCT Platelet num Bld Auto 312Thou/uL Normal [id number] 150 - 450 HHCCT MCHC RBC Auto-mCnc 31.2g/dL Normal [id number] 30 - 36 HHCCT Hct VFr Bld Auto 31.1% Below low normal 786891878465 39 - 54 HHCCT MCV RBC Auto 103fL Above high normal [id number] 80 - 1 00 HHCCT Hgb Bld-mCnc 9.7g/dL Below low normal [id number] 13 - 17 .7 HHCCT Calcium SerPl-mCnc 9.4mg/dL Normal [id number] 8.7 - 10 .5 HHCCT BUN SerPl-mCnc 16mg/dL Normal [id number] 8 - 21 HH CCT Creat SerPl-mCnc 1mg/dL Normal [id number] 0.5 - 1.3 HHCCT GFR/BSA.pred SerPlBld NBE-TET-UxYPop 78 Normal [id number] 59 - HHCCT Chloride SerPl-sCnc 98mmol/L Normal [id number] 98 - 107 HHCCT BUN/Creat SerPl 16Ratio Normal [id number] 10 - 25 H HCCT CO2 SerPl-sCnc 29mmol/L Normal [id number] 22 - 33 HH CCT Anion Gap Bld-sCnc 10 Normal [id number] 7 - 17 HHCCT Potassium SerPl-sCnc 4.9mmol/L Normal [id number] 3.4 - 5.3 HHCCT Glucose SerPl-mCnc 99mg/dL Normal [id number] 65 - 99 HHCCT Sodium SerPl-sCnc 137mmol/L Normal [id number] 136 - 145 HHCCT RBC num Bld Auto 2.81Mil/uL Below low normal [id number] 4. 5 - 6.2 HHCCT RDW RBC Auto-Rto 16.5% Above high normal [id number] 11.5 - 14.5 HHCCT PMV Bld Auto 10.2fL Normal [id number] 7.5 - 12.[address] MCH RBC Qn Auto 32.4pg Above high normal [id number] 27 - 31 HHCCT WBC num Bld Auto 5.8Thou/uL Normal [id number] 4 - 11 HHCCT Platelet num Bld Auto 293Thou/uL Normal [id number] 150 - 450 HHCCT MCHC RBC Auto-mCnc 31.4g/dL Normal [id number] 30 - 36 HHCCT Hct VFr Bld Auto 29% Below low normal [id number] 39 - 54 HHCCT MCV RBC Auto 103fL Above high normal [id number] 80 - 1 00 HHCCT Hgb Bld-mCnc 9.1g/dL Below low normal [id number] 13 - 17 .7 HHCCT RBC num Bld Auto 2.83Mil/uL Below low normal [id number] 4. 5 - 6.2 HHCCT RDW RBC Auto-Rto 16.7% Above high normal [id number] 11.5 - 14.5 HHCCT PMV Bld Auto 10fL Normal [id number] 7.5 - 12.[address] MCH RBC Qn Auto 32.5pg Above high normal [id number] 27 - 31 HHCCT WBC num Bld Auto 5.1Thou/uL Normal [id number] 4 - 11 HHCCT Platelet num Bld Auto 265Thou/uL Normal [id number] 150 - 450 HHCCT MCHC RBC Auto-mCnc 31.4g/dL Normal [id number] 30 - 36 HHCCT Hct VFr Bld Auto 29.3% Below low normal [id number] 39 - 54 HHCCT MCV RBC Auto 104fL Above high normal 486443410363 80 - 1 00 HHCCT Hgb Bld-mCnc 9.2g/dL Below low normal [id number] 13 - 17 .7 HHCCT Calcium SerPl-mCnc 8.9mg/dL Normal [id number] 8.7 - 10 .5 HHCCT BUN SerPl-mCnc 16mg/dL Normal [id number] 8 - 21 HH CCT Creat SerPl-mCnc 1.1mg/dL Normal [id number] 0.5 - 1.3 HHCCT GFR/BSA.pred SerPlBld ZPU-UGG-NzFJfb 70 Normal [id number] 59 - HHCCT Chloride SerPl-sCnc 97mmol/L Below low normal [id number] 98 - 107 HHCCT BUN/Creat SerPl 15Ratio Normal [id number] 10 - 25 H HCCT CO2 SerPl-sCnc 29mmol/L Normal [id number] 22 - 33 HH CCT Anion Gap Bld-sCnc 10 Normal [id number] 7 - 17 HHCCT Potassium SerPl-sCnc 4.4mmol/L Normal [id number] 3.4 - 5.3 HHCCT Glucose SerPl-mCnc 126mg/dL Above high normal [id number] 65 - 99 HHCCT Sodium SerPl-sCnc 136mmol/L Normal [id number] 136 - 145 HHCCT RBC num Bld Auto 2.9Mil/uL Below low normal [id number] 4.5 - 6.2 HHCCT RDW RBC Auto-Rto 16.7% Above high normal [id number] 11.5 - 14.5 HHCCT PMV Bld Auto 10.2fL Normal [id number] 7.5 - 12.[address] MCH RBC Qn Auto 32.1pg Above high normal [id number] 27 - 31 HHCCT WBC num Bld Auto 6.1Thou/uL Normal [id number] 4 - 11 HHCCT Platelet num Bld Auto 249Thou/uL Normal [id number] 150 - 450 HHCCT MCHC RBC Auto-mCnc 31g/dL Normal [id number] 30 - 36 HHCCT Hct VFr Bld Auto 30% Below low normal [id number] 39 - 54 HHCCT MCV RBC Auto 103fL Above high normal [id number] 80 - 1 00 HHCCT Hgb Bld-mCnc 9.3g/dL Below low normal [id number] 13 - 17 .7 HHCCT Magnesium SerPl-mCnc 2mg/dL Normal [id number] 1.6 - 2.7 HHCCT Calcium SerPl-mCnc 8.8mg/dL Normal [id number] 8.7 - 10 .5 HHCCT BUN SerPl-mCnc 13mg/dL Normal [id number] 8 - 21 HH CCT Creat SerPl-mCnc 0.9mg/dL Normal [id number] 0.5 - 1.3 HHCCT GFR/BSA.pred SerPlBld CRF-TKT-RfIYsi 89 Normal [id number] 59 - HHCCT Chloride SerPl-sCnc 100mmol/L Normal [id number] 98 - 107 HHCCT BUN/Creat SerPl 14Ratio Normal [id number] 10 - 25 H HCCT CO2 SerPl-sCnc 27mmol/L Normal [id number] 22 - 33 HH CCT Anion Gap Bld-sCnc 12 Normal [id number] 7 - 17 HHCCT Potassium SerPl-sCnc 4.4mmol/L Normal [id number] 3.4 - 5.3 HHCCT Glucose SerPl-mCnc 78mg/dL Normal [id number] 65 - 99 HHCCT Sodium SerPl-sCnc 139mmol/L Normal [id number] 136 - 145 HHCCT INR PPP 1 Normal [id number] HHCCT Prothrombin time 11.2seconds Normal [id number] 10 - 13. 5 HHCCT RBC num Bld Auto 2.48Mil/uL Below low normal [id number] 4. 5 - 6.2 HHCCT RDW RBC Auto-Rto 16.5% Above high normal [id number] 11.5 - 14.5 HHCCT PMV Bld Auto 10.4fL Normal [id number] 7.5 - 12.[address] MCH RBC Qn Auto 33.1pg Above high normal [id number] 27 - 31 HHCCT WBC num Bld Auto 5.7Thou/uL Normal [id number] 4 - 11 HHCCT Platelet num Bld Auto 192Thou/uL Normal [id number] 150 - 450 HHCCT MCHC RBC Auto-mCnc 31.8g/dL Normal [id number] 30 - 36 HHCCT Hct VFr Bld Auto 25.8% Below low normal [id number] 39 - 54 HHCCT MCV RBC Auto 104fL Above high normal [id number] 80 - 1 00 HHCCT Hgb Bld-mCnc 8.2g/dL Below low normal [id number] 13 - 17 .7 HHCCT Anticoagulant SUB Q UNFRACTIONATED HEPARIN Normal [id number] HHCCT RBC num/area UrnS HPF 0perhpf Normal [id number] 0 - 4 HHCCT Ketones Ur Strip-mCnc Normal [id number] - HHCCT Prot Ur Strip-mCnc Normal [id number] - HHCCT WBC num/area UrnS HPF 0perhpf Normal [id number] 0 - 4 HHCCT Leukocyte esterase Ur Ql Strip Normal [id number] - HHCCT Color Ur Normal 712780281971 HHCCT pH Ur Strip 6 Normal [id number] 5 - 8 HHCCT Sp Gr Ur Strip 1.017 Normal [id number] 1.003 - 1.03 HHCCT Nitrite Ur Ql Strip Normal [id number] - HHCCT Glucose Ur Strip-mCnc 0mg/dL Normal [id number] 0 - 99 HHCCT Hgb Ur Ql Strip Normal [id number] - H HCCT Bilirub Ur Strip-mCnc Normal [id number] - HHCCT Clarity Ur Normal [id number] HHCCT POC Glucose 251mg/dL Above high normal [id number] 65 - 99 HHCCT POC Glucose 93mg/dL Normal [id number] 65 - 99 HHCCT POC Glucose 178mg/dL Above high normal [id number] 65 - 99 HHCCT POC Glucose 139mg/dL Above high normal 668170098480 65 - HHCCT POC Glucose 158mg/dL Above high normal [id number] 65 - 99 HHCCT POC Glucose 154mg/dL Above high normal [id number] 65 - 99 HHCCT POC Glucose 140mg/dL Above high normal [id number] 65 - 99 HHCCT Iron Satn MFr SerPl 39% Normal [id number] 20 - 50 HHCCT UIBC SerPl-mCnc 147ug/dL Normal [id number] 112 - 346 H HCCT TIBC SerPl-mCnc 241ug/dL Normal [id number] 100 - 400 H HCCT Iron SerPl-mCnc 94ug/dL Normal [id number] 53 - 167 H HCCT Ferritin SerPl-mCnc 409ug/L Above high normal [id number] 30 - 400 HHCCT Vit B12 SerPl-mCnc 1263pg/mL Above high normal 831904595710 243 - 894 HHCCT Immature Reticulocyte Fraction 8.8% Normal [id number] 2.3 - 15.9 HHCCT Hgb Retic Qn Auto 34.2pg Normal [id number] 28 - 35 HHCCT Reticulocyte production index 1% Normal [id number] 1 - 2 HHCCT Retics/100 RBC NFr Auto 1.7% Normal [id number] 0.7 - 2 HHCCT Retics num Auto 44Thou/uL Normal [id number] 30 - 100 H HCCT POC Glucose 280mg/dL Above high normal [id number] - HHCCT POC Glucose 156mg/dL Above high normal [id number] - 99 HHCCT Phosphate SerPl-mCnc 2.9mg/dL Normal [id number] 2.7 - 4.5 HHCCT Calcium SerPl-mCnc 8.8mg/dL Normal [id number] 8.7 - 10 .5 HHCCT BUN SerPl-mCnc 27mg/dL Above high normal [id number] 8 - 21 HHCCT Creat SerPl-mCnc 0.9mg/dL Normal [id number] 0.5 - 1.3 HHCCT GFR/BSA.pred SerPlBld TWU-GQT-LiSSgv 89 Normal [id number] 59 - HHCCT Chloride SerPl-sCnc 97mmol/L Below low normal [id number] 98 - 107 HHCCT BUN/Creat SerPl 30Ratio Above high normal [id number] 10 - 25 HHCCT CO2 SerPl-sCnc 34mmol/L Above high normal [id number] 22 - 33 HHCCT Anion Gap Bld-sCnc 7 Normal [id number] 7 - 17 HHCCT Potassium SerPl-sCnc 4.3mmol/L Normal [id number] 3.4 - 5.3 HHCCT Glucose SerPl-mCnc 173mg/dL Above high normal [id number] 65 - 99 HHCCT Sodium SerPl-sCnc 138mmol/L Normal [id number] 136 - 145 HHCCT Magnesium SerPl-mCnc 2.3mg/dL Normal [id number] 1.6 - 2.7 HHCCT RBC num Bld Auto 2.58Mil/uL Below low normal [id number] 4. 5 - 6.2 HHCCT RDW RBC Auto-Rto 15.5% Above high normal [id number] 11.5 - 14.5 HHCCT PMV Bld Auto 10.6fL Normal [id number] 7.5 - 12.[address] MCH RBC Qn Auto 32.2pg Above high normal [id number] 27 - 31 HHCCT WBC num Bld Auto 7.5Thou/uL Normal [id number] 4 - 11 HHCCT Platelet num Bld Auto 196Thou/uL Normal [id number] 150 - 450 HHCCT MCHC RBC Auto-mCnc 31.9g/dL Normal [id number] 30 - 36 HHCCT Hct VFr Bld Auto 26% Below low normal 856464902035 39 - 54 HHCCT MCV RBC Auto 101fL Above high normal [id number] 80 - 1 00 HHCCT Hgb Bld-mCnc 8.3g/dL Below low normal 859204012730 13 - 17 .7 HHCCT POC Glucose 157mg/dL Above high normal 752572187755 65 - 99 HHCCT Magnesium SerPl-mCnc 2mg/dL Normal [id number] 1.6 - 2.7 HHCCT Phosphate SerPl-mCnc 2.8mg/dL Normal [id number] 2.7 - 4.5 HHCCT Calcium SerPl-mCnc 8.9mg/dL Normal 8.7 - 10 .5 HHCCT BUN SerPl-mCnc 29mg/dL Above high normal [id number] 8 - 21 HHCCT Creat SerPl-mCnc 0.9mg/dL Normal 0.5 - 1.3 HHCCT GFR/BSA.pred SerPlBld XLF-BZN-FnOJiz 89 Normal [id number] 59 - HHCCT Chloride SerPl-sCnc 93mmol/L Below low normal [id number] 98 - 107 HHCCT BUN/Creat SerPl 32Ratio Above high normal [id number] 10 - 25 HHCCT CO2 SerPl-sCnc 34mmol/L Above high normal [id number] 22 - 33 HHCCT Anion Gap Bld-sCnc 8 Normal [id number] 7 - 17 HHCCT Potassium SerPl-sCnc 4.4mmol/L Normal 3.4 - 5.3 HHCCT Glucose SerPl-mCnc 231mg/dL Above high normal [id number] 65 - 99 HHCCT Sodium SerPl-sCnc 135mmol/L Below low normal 655119511842 13 6 - 145 HHCCT POC Glucose 218mg/dL Above high normal [id number] 65 - 99 HHCCT LMWH PPP [employer] Window Clerk-aCnc 0.73IU/mL Normal 169508332667 HHCCT POC Glucose 176mg/dL Above high normal [id number] 65 - 99 HHCCT Anticoagulant IV HEPARIN, UNFRACTIONATED Normal 449842982255 HHCCT LMWH PPP [employer] Window Clerk-aCnc 0.72IU/mL Normal 693570116080 HHCCT Magnesium SerPl-mCnc 2.1mg/dL Normal [id number] 1.6 - 2.7 HHCCT Phosphate SerPl-mCnc 3.1mg/dL Normal [id number] 2.7 - 4.5 HHCCT Delta Normal [id number] - 3 HHCCT Troponin T SerPl-mCnc 17ng/L Normal [id number] - 23 HHCCT Calcium SerPl-mCnc 8.8mg/dL Normal [id number] 8.7 - 10 .5 HHCCT BUN SerPl-mCnc 25mg/dL Above high normal 563991702030 8 - 21 HHCCT Creat SerPl-mCnc 0.9mg/dL Normal [id number] 0.5 - 1.3 HHCCT GFR/BSA.pred SerPlBld SXQ-FWM-BkOIez 89 Normal [id number] 59 - HHCCT Chloride SerPl-sCnc 96mmol/L Below low normal [id number] 98 - 107 HHCCT BUN/Creat SerPl 28Ratio Above high normal [id number] 10 - 25 HHCCT CO2 SerPl-sCnc 30mmol/L Normal [id number] 22 - 33 HH CCT Anion Gap Bld-sCnc 12 Normal [id number] 7 - 17 HHCCT Potassium SerPl-sCnc 4.3mmol/L Normal [id number] 3.4 - 5.3 HHCCT Glucose SerPl-mCnc 177mg/dL Above high normal [id number] 65 - 99 HHCCT Sodium SerPl-sCnc 138mmol/L Normal [id number] 136 - 145 HHCCT RBC num Bld Auto 2.53Mil/uL Below low normal [id number] 4. 5 - 6.2 HHCCT RDW RBC Auto-Rto 15.6% Above high normal [id number] 11.5 - 14.5 HHCCT PMV Bld Auto 11fL Normal [id number] 7.5 - 12.[address] MCH RBC Qn Auto 32.8pg Above high normal [id number] 27 - 31 HHCCT WBC num Bld Auto 11.3Thou/uL Above high normal [id number] 4 - 11 HHCCT Platelet num Bld Auto 207Thou/uL Normal [id number] 150 - 450 HHCCT MCHC RBC Auto-mCnc 32.4g/dL Normal [id number] 30 - 36 HHCCT Hct VFr Bld Auto 25.6% Below low normal [id number] 39 - 54 HHCCT MCV RBC Auto 101fL Above high normal 518777670973 80 - 1 00 HHCCT Hgb Bld-mCnc 8.3g/dL Below low normal [id number] 13 - 17 .7 HHCCT POC Glucose 205mg/dL Above high normal 203543431340 65 - 99 HHCCT POC Glucose 270mg/dL Above high normal [id number] 65 - 99 HHCCT Anticoagulant IV HEPARIN, UNFRACTIONATED Normal [id number] HHCCT POC Glucose 164mg/dL Above high normal [id number] 65 - 99 HHCCT Phosphate SerPl-mCnc 2.8mg/dL Normal [id number] 2.7 - 4.5 HHCCT Magnesium SerPl-mCnc 2mg/dL Normal [id number] 1.6 - 2.7 HHCCT Calcium SerPl-mCnc 8.9mg/dL Normal [id number] 8.7 - 10 .5 HHCCT BUN SerPl-mCnc 22mg/dL Above high normal [id number] 8 - 21 HHCCT Creat SerPl-mCnc 0.9mg/dL Normal [id number] 0.5 - 1.3 HHCCT GFR/BSA.pred SerPlBld DRU-FWE-AnPHxh 89 Normal [id number] 59 - HHCCT Chloride SerPl-sCnc 95mmol/L Below low normal [id number] 98 - 107 HHCCT BUN/Creat SerPl 24Ratio Normal [id number] 10 - 25 H HCCT CO2 SerPl-sCnc 31mmol/L Normal [id number] 22 - 33 HH CCT Anion Gap Bld-sCnc 11 Normal [id number] 7 - 17 HHCCT Potassium SerPl-sCnc 4.2mmol/L Normal [id number] 3.4 - 5.3 HHCCT Glucose SerPl-mCnc 201mg/dL Above high normal [id number] 65 - 99 HHCCT Sodium SerPl-sCnc 137mmol/L Normal [id number] 136 - 145 HHCCT POC Glucose 254mg/dL Above high normal [id number] 65 - 99 HHCCT POC Glucose 178mg/dL Above high normal 478486159782 65 - 99 HHCCT LMWH PPP [employer] Clerk-aCnc 0.52IU/mL Normal [id number] HHCCT Phosphate SerPl-mCnc 3.6mg/dL Normal [id number] 2.7 - 4.5 HHCCT Magnesium SerPl-mCnc 1.9mg/dL Normal 1.6 - 2.7 HHCCT Calcium SerPl-mCnc 8.6mg/dL Below low normal 419535803291 8 .7 - 10.5 HHCCT BUN SerPl-mCnc 20mg/dL Normal 8 - 21 HH CCT Creat SerPl-mCnc 0.9mg/dL Normal 0.5 - 1.3 HHCCT GFR/BSA.pred SerPlBld EMW-OOX-VyNEqe 89 Normal [id number] 59 - HHCCT Chloride SerPl-sCnc 98mmol/L Normal 98 - 107 HHCCT BUN/Creat SerPl 22Ratio Normal 10 - 25 H HCCT CO2 SerPl-sCnc 28mmol/L Normal 22 - 33 HH CCT Anion Gap Bld-sCnc 10 Normal [id number] 7 - 17 HHCCT Potassium SerPl-sCnc 4.5mmol/L Normal [id number] 3.4 - 5.3 HHCCT Glucose SerPl-mCnc 176mg/dL Above high normal 65 - 99 HHCCT Sodium SerPl-sCnc 136mmol/L Normal [id number] 136 - 145 HHCCT RBC num Bld Auto 2.56Mil/uL Below low normal [id number] 4. 5 - 6.2 HHCCT RDW RBC Auto-Rto 15.4% Above high normal [id number] 11.5 - 14.5 HHCCT PMV Bld Auto 11fL Normal [id number] 7.5 - 12.[address] MCH RBC Qn Auto 32.4pg Above high normal [id number] 27 - 31 HHCCT WBC num Bld Auto 7.7Thou/uL Normal [id number] 4 - 11 HHCCT Platelet num Bld Auto 204Thou/uL Normal [id number] 150 - 450 HHCCT MCHC RBC Auto-mCnc 32.5g/dL Normal 30 - 36 HHCCT Hct VFr Bld Auto 25.5% Below low normal 39 - 54 HHCCT MCV RBC Auto 100fL Normal 80 - 100 HHCC T Hgb Bld-mCnc 8.3g/dL Below low normal 13 - 17 .7 HHCCT Anticoagulant IV HEPARIN, UNFRACTIONATED Normal HHCCT POC Glucose 208mg/dL Above high normal 65 - 99 HHCCT CO2 BldV-sCnc 32mmol/L Above high normal 23 - 29 HHCCT Base excess BldA Calc-sCnc 4mmol/L Normal HHCCT pH BldV 7.32 Below low normal 7.33 - 7.43 HHCCT pCO2 BldV 62mmHG Above high normal 35 - 50 HHCCT pO2 BldV 91mmHG Above high normal 0 - 60 HHCCT Respiratory Information OTHER Normal HHCCT Phosphate SerPl-mCnc 3.8mg/dL Normal 2.7 - 4.5 HHCCT Magnesium SerPl-mCnc 1.9mg/dL Normal 1.6 - 2.7 HHCCT AST SerPl-cCnc 17U/L Normal 10 - 55 HH CCT ALT SerPl-cCnc 21U/L Normal 10 - 55 HH CCT Creat SerPl-mCnc 0.7mg/dL Normal 0.5 - 1.3 [facility] Globulin Ser Calc-mCnc 3.4g/dL Normal 1.5 - 3.9 [facility] CO2 SerPl-sCnc 30mmol/L Normal 22 - 33 HH CCT Albumin/Glob SerPl 1Ratio Normal 1 - 3 [facility] Anion Gap Bld-sCnc 9 Normal 7 - 17 [facility] Potassium SerPl-sCnc 4.8mmol/L Normal 3.4 - 5.3 [facility] Bilirub SerPl-mCnc 0.2mg/dL Normal 0.2 - 1 [facility] Calcium SerPl-mCnc 9.2mg/dL Normal 8.7 - 10 .5 [facility] BUN SerPl-mCnc 12mg/dL Normal 8 - 21 HH CCT ALP SerPl-cCnc 75U/L Normal 45 - 128 HH CCT GFR/BSA.pred SerPlBld MID-SVT-FbCSpp 90 Normal 59 - H[facility]CT Chloride SerPl-sCnc 98mmol/L Normal 98 - 107 [facility] BUN/Creat SerPl 17Ratio Normal 10 - 25 H [facility] Albumin SerPl-mCnc 3.3g/dL Below low normal 3 .4 - 4.8 [facility] Prot SerPl-mCnc 6.7g/dL Normal 6.3 - 8.3 H [facility] Glucose SerPl-mCnc 187mg/dL Above high normal 65 - 99 [facility] Sodium SerPl-sCnc 137mmol/L Normal 136 - 145 [facility] LMWH PPP [employer] Clerk-aCnc 0.52IU/mL Normal [id number] [facility] Neutrophils num Bld Auto 2.12Thou/uL Normal 2 - 7.5 [facility] Monocytes num Bld Auto 0.06Thou/uL Below low normal 0.2 - 1.5 [facility] Eosinophil num Bld Auto 0Thou/uL Normal 0 - 0.7 [facility] WBC num Bld Auto 2.7Thou/uL Below low normal [id number] 4 - 11 [facility] MCHC RBC Auto-mCnc 32g/dL Normal 30 - 36 [facility] Monocytes/leuk NFr Bld Auto 2.3% Normal [id number] [facility] Hct VFr Bld Auto 27.8% Below low normal [id number] 39 - 54 [facility] RBC num Bld Auto 2.77Mil/uL Below low normal [id number] 4. 5 - 6.2 [facility] RDW RBC Auto-Rto 15.2% Above high normal 11.5 - 14.5 [facility] PMV Bld Auto 10.3fL Normal [id number] 7.5 - 12.[address] Eosinophil/leuk NFr Bld Auto 0% Normal [id number] [facility] MCH RBC Qn Auto 32.1pg Above high normal 27 - 31 [facility] Basophils/leuk NFr Bld Auto 0% Normal [id number] [facility] Basophils num Bld Auto 0Thou/uL Normal 0 - 0.2 [facility] Platelet num Bld Auto 201Thou/uL Normal 150 - 450 [facility] Neutrophils/leuk NFr Bld Auto 79.9% Normal H[facility]CT MCV RBC Auto 100fL Normal 80 - 100 HH[facility] T Lymphocytes/leuk NFr Bld Auto 17% Normal [facility] Lymphocytes num Bld Auto 0.45Thou/uL Below low normal 1.5 - 4.5 [facility] Imm Granulocytes/leuk NFr Bld Auto 0.8% Normal H[facility]CT Hgb Bld-mCnc 8.9g/dL Below low normal 13 - 17 .7 [facility] Imm Granulocytes num Bld Auto 0.02Thou/uL Normal 0 - 0.1 [facility] Anticoagulant IV HEPARIN, UNFRACTIONATED Normal H[facility]CT LMWH PPP [employer] Clerk-aCnc 0.32IU/mL Normal [id number] [facility] Folate SerPl-mCnc 12.3ng/mL Normal 7.2 - [facility] Phosphate SerPl-mCnc 3.6mg/dL Normal 2.7 - 4.5 [facility] Anticoagulant IV HEPARIN, UNFRACTIONATED Normal H[facility]CT LMWH PPP [employer] Window Clerk-aCnc 0.44IU/mL Normal H[facility]CT AST SerPl-cCnc 18U/L Normal 10 - 55 HH CCT ALT SerPl-cCnc 20U/L Normal 10 - 55 HH CCT Creat SerPl-mCnc 0.9mg/dL Normal 0.5 - 1.3 [facility] Globulin Ser Calc-mCnc 2.7g/dL Normal 1.5 - 3.9 [facility] CO2 SerPl-sCnc 31mmol/L Normal 22 - 33 HH CCT Albumin/Glob SerPl 1.1Ratio Normal 1 - 3 [facility] Anion Gap Bld-sCnc 6 Below low normal 7 - 17 [facility] Potassium SerPl-sCnc 4.4mmol/L Normal 3.4 - 5.3 [facility]CT Bilirub SerPl-mCnc 0.2mg/dL Normal 0.2 - 1 [facility] Calcium SerPl-mCnc 8.5mg/dL Below low normal 8 .7 - 10.5 [facility] BUN SerPl-mCnc 11mg/dL Normal 8 - 21 HH CCT ALP SerPl-cCnc 61U/L Normal 45 - 128 HH CCT GFR/BSA.pred SerPlBld CCO-MXD-CnHRav 89 Normal 59 - HHCCT Chloride SerPl-sCnc 99mmol/L Normal 98 - 107 [facility] BUN/Creat SerPl 12Ratio Normal 10 - 25 H [facility] Albumin SerPl-mCnc 2.9g/dL Below low normal 3 .4 - 4.8 [facility] Prot SerPl-mCnc 5.6g/dL Below low normal 6.3 - 8.3 [facility] Glucose SerPl-mCnc 119mg/dL Above high normal 65 - 99 [facility] Sodium SerPl-sCnc 136mmol/L Normal 136 - 145 [facility]CT Magnesium SerPl-mCnc 1.9mg/dL Normal 1.6 - 2.7 [facility] CO2 BldV-sCnc 32mmol/L Above high normal 23 - 29 [facility] Base excess BldA Calc-sCnc 3.8mmol/L Normal HHCCT pH BldV 7.3 Below low normal 7.33 - 7.43 [facility] pCO2 BldV 64mmHG Above high normal [id number] 35 - 50 [facility] pO2 BldV 85mmHG Above high normal [id number] 0 - 60 [facility] Neutrophils num Bld Auto 2.58Thou/uL Normal [id number] 2 - 7.5 [facility] Monocytes num Bld Auto 0.51Thou/uL Normal [id number] 0.2 - 1.5 [facility] Eosinophil num Bld Auto 0.8Thou/uL Above high normal [id number] 0 - 0.7 [facility] WBC num Bld Auto 5Thou/uL Normal [id number] 4 - 11 H[facility]CT MCHC RBC Auto-mCnc 31.8g/dL Normal [id number] 30 - 36 [facility] Monocytes/leuk NFr Bld Auto 10.3% Normal [id number] HHCCT Hct VFr Bld Auto 24.2% Below low normal [id number] 39 - 54 [facility] RBC num Bld Auto 2.35Mil/uL Below low normal [id number] 4. 5 - 6.2 [facility]CT RDW RBC Auto-Rto 15.9% Above high normal [id number] 11.5 - 14.5 H[facility]CT PMV Bld Auto 10.3fL Normal [id number] 7.5 - 12.[address] Eosinophil/leuk NFr Bld Auto 16.1% Normal [id number] HHCCT MCH RBC Qn Auto 32.8pg Above high normal [id number] 27 - 31 [facility] Basophils/leuk NFr Bld Auto 0.6% Normal [id number] H[facility]CT Basophils num Bld Auto 0.03Thou/uL Normal [id number] 0 - 0.2 [facility] Platelet num Bld Auto 158Thou/uL Normal [id number] 150 - 450 [facility] Neutrophils/leuk NFr Bld Auto 51.9% Normal [id number] HHCCT MCV RBC Auto 103fL Above high normal [id number] 80 - 1 00 [facility] Lymphocytes/leuk NFr Bld Auto 20.1% Normal [id number] H[facility]CT Lymphocytes num Bld Auto 1Thou/uL Below low normal [id number] 1.5 - 4.5 [facility] Imm Granulocytes/leuk NFr Bld Auto 1% Normal [id number] H[facility]CT Hgb Bld-mCnc 7.7g/dL Below low normal [id number] 13 - 17 .7 H[facility]CT Imm Granulocytes num Bld Auto 0.05Thou/uL Normal [id number] 0 - 0.1 [facility]CT Anticoagulant IV HEPARIN, UNFRACTIONATED Normal [id number] HHT Respiratory Information NASAL 6 L/MIN Normal [id number] H[facility]CT pCO2, Arterial 51mmHG Above high normal [id number] 32 - 45 HHCCT pH, Arterial 7.41 Normal [id number] 7.35 - 7.45 H[facility]CT Total CO2, Arterial 33mmol/L Above high normal [id number] 22 - 28 H[facility]CT pO2, Arterial 69mmHG Below low normal [id number] 75 - 9 5 H[facility]CT Base excess BldA Calc-sCnc 6.3mmol/L Normal [id number] CCT Vit B12 SerPl-mCnc 1271pg/mL Above high normal [id number] 243 - 894 H[facility]CT LMWH PPP [employer] Clerk-aCnc 0.25IU/mL Normal [id number] HHCCT Albumin SerPl-mCnc 3.3g/dL Below low normal [id number] 3 .4 - 4.8 [facility]CT Respiratory Information OTHER Normal [id number] CCT Delta Normal [id number] - 3 HHCCT Troponin T SerPl-mCnc 37ng/L Above high normal [id number] - 23 H[facility]CT pro BNP, N-terminal 381pg/mL Normal [id number] - 450 H[facility]CT RBC num Bld Auto 2.55Mil/uL Below low normal [id number] 4. 5 - 6.2 HHCCT RDW RBC Auto-Rto 15.9% Above high normal [id number] 11.5 - 14.5 HHCCT PMV Bld Auto 10.5fL Normal [id number] 7.5 - 12.[address] MCH RBC Qn Auto 32.9pg Above high normal [id number] 27 - 31 H[facility]CT WBC num Bld Auto 6Thou/uL Normal [id number] 4 - 11 [facility]CT Platelet num Bld Auto 172Thou/uL Normal [id number] 150 - 450 [facility]CT MCHC RBC Auto-mCnc 32.2g/dL Normal [id number] 30 - 36 HHCCT Hct VFr Bld Auto 26.1% Below low normal [id number] 39 - 54 H[facility]CT MCV RBC Auto 102fL Above high normal [id number] 80 - 1 00 HHCCT Hgb Bld-mCnc 8.4g/dL Below low normal [id number] 13 - 17 .7 HHCCT pCO2, Arterial 66mmHG Above high normal [id number] 32 - 45 HHCCT pH, Arterial 7.28 Below low normal [id number] 7.35 - 7.45 HHCCT Total CO2, Arterial 32mmol/L Above high normal [id number] 22 - 28 HHCCT pO2, Arterial 196mmHG Above high normal [id number] 75 - 95 HHCCT Base excess BldA Calc-sCnc 3mmol/L Normal [id number] HHCCT Respiratory Information NASAL 6 L/MIN Normal [id number] HHCCT Calcium SerPl-mCnc 9mg/dL Normal [id number] 8.7 - 10 .5 HHCCT BUN SerPl-mCnc 14mg/dL Normal [id number] 8 - 21 HH CCT Creat SerPl-mCnc 1mg/dL Normal [id number] 0.5 - 1.3 HHCCT GFR/BSA.pred SerPlBld FPP-VBR-HiRHsx 78 Normal [id number] 59 - HHCCT Chloride SerPl-sCnc 94mmol/L Below low normal [id number] 98 - 107 HHCCT BUN/Creat SerPl 14Ratio Normal [id number] 10 - 25 H HCCT CO2 SerPl-sCnc 31mmol/L Normal [id number] 22 - 33 HH CCT Anion Gap Bld-sCnc 8 Normal [id number] 7 - 17 HHCCT Potassium SerPl-sCnc 4.6mmol/L Normal 3.4 - 5.3 HHCCT Glucose SerPl-mCnc 131mg/dL Above high normal [id number] 65 - 99 HHCCT Sodium SerPl-sCnc 133mmol/L Below low normal [id number] 13 6 - 145 HHCCT Anticoagulant IV HEPARIN, UNFRACTIONATED Normal [id number] HHCCT pro BNP, N-terminal 333pg/mL Normal [id number] - 450 H[facility]CT LMWH PPP [employer] Clerk-aCnc 0.04IU/mL Normal [id number] HHCCT Neutrophils num Bld Auto 3.22Thou/uL Normal [id number] 2 - 7.5 HHCCT Monocytes num Bld Auto 0.69Thou/uL Normal [id number] 0.2 - 1.5 HHCCT Eosinophil num Bld Auto 0.75Thou/uL Above high normal [id number] 0 - 0.7 HHCCT WBC num Bld Auto 6Thou/uL Normal [id number] 4 - 11 HHCCT MCHC RBC Auto-mCnc 31.7g/dL Normal [id number] 30 - 36 H[facility]CT Monocytes/leuk NFr Bld Auto 11.5% Normal [id number] HHCCT Hct VFr Bld Auto 29% Below low normal [id number] 39 - 54 HHCCT RBC num Bld Auto 2.86Mil/uL Below low normal [id number] 4. 5 - 6.2 HHCCT RDW RBC Auto-Rto 15.9% Above high normal [id number] 11.5 - 14.5 HHCCT PMV Bld Auto 11.1fL Normal [id number] 7.5 - 12.[address] Eosinophil/leuk NFr Bld Auto 12.5% Normal [id number] HHCCT MCH RBC Qn Auto 32.2pg Above high normal [id number] 27 - 31 HHCCT Basophils/leuk NFr Bld Auto 0.7% Normal [id number] HHCCT Basophils num Bld Auto 0.04Thou/uL Normal [id number] 0 - 0.2 HHCCT Platelet num Bld Auto 196Thou/uL Normal [id number] 150 - 450 H[facility]CT Neutrophils/leuk NFr Bld Auto 53.9% Normal [id number] HHCCT MCV RBC Auto 101fL Above high normal [id number] 80 - 1 00 HHCCT Lymphocytes/leuk NFr Bld Auto 19.9% Normal [id number] HHCCT Lymphocytes num Bld Auto 1.19Thou/uL Below low normal [id number] 1.5 - 4.5 HHCCT Imm Granulocytes/leuk NFr Bld Auto 1.5% Normal [id number] HHCCT Hgb Bld-mCnc 9.2g/dL Below low normal [id number] 13 - 17 .7 HHCCT Imm Granulocytes num Bld Auto 0.09Thou/uL Normal [id number] 0 - 0.1 HHCCT Hgb BldA-mCnc 9.2g/dL Below low normal [id number] 13 - 1 7.7 HHCCT CO2 BldV-sCnc 31mmol/L Above high normal [id number] 23 - 29 HHCCT COHgb MFr BldA 2.4% Above high normal [id number] 0 - 2 HHCCT SaO2 % BldV from pO2 100% Normal [id number] HHCCT O2 Ct VFr BldV Calc 13.2mL/dL Normal [id number] 7.2 - 17.2 HHCCT Base excess BldA Calc-sCnc 4mmol/L Normal [id number] HHCCT MetHgb MFr Bld 0.5% Normal [id number] 0.4 - 1.5 HH CCT pH BldV 7.37 Normal [id number] 7.33 - 7.43 HHCCT pCO2 BldV 52mmHG Above high normal [id number] 35 - 50 HHCCT pO2 BldV 269mmHG Above high normal [id number] 0 - 60 HHCCT Respiratory Information NASAL 5 L/MIN Normal [id number] HHCCT Anticoagulant IV HEPARIN, UNFRACTIONATED Normal [id number] HHCCT LMWH PPP [employer] Clerk-aCnc 0.59IU/mL Normal [id number] HHCCT Anticoagulant IV HEPARIN, UNFRACTIONATED Normal [id number] HHCCT LMWH PPP [employer] Clerk-aCnc 0.46IU/mL Normal [id number] HHCCT Anticoagulant IV HEPARIN, UNFRACTIONATED Normal [id number] HHCCT LMWH PPP [employer] Clerk-aCnc 0.52IU/mL Normal [id number] HHCCT Magnesium SerPl-mCnc 1.9mg/dL Normal [id number] 1.6 - 2.7 HHCCT Delta 5 Above high normal [id number] - 3 HHCCT Troponin T SerPl-mCnc 41ng/L Above high normal [id number] - 23 HHCCT Calcium SerPl-mCnc 9.1mg/dL Normal [id number] 8.7 - 10 .5 HHCCT BUN SerPl-mCnc 11mg/dL Normal [id number] 8 - 21 HH CCT Creat SerPl-mCnc 0.9mg/dL Normal [id number] 0.5 - 1.3 HHCCT GFR/BSA.pred SerPlBld HNR-EQM-MkJZhd 89 Normal [id number] 59 - HHCCT Chloride SerPl-sCnc 99mmol/L Normal [id number] 98 - 107 HHCCT BUN/Creat SerPl 12Ratio Normal [id number] 10 - 25 H HCCT CO2 SerPl-sCnc 29mmol/L Normal [id number] 22 - 33 HH CCT Anion Gap Bld-sCnc 10 Normal [id number] 7 - 17 HHCCT Potassium SerPl-sCnc 4.2mmol/L Normal [id number] 3.4 - 5.3 HHCCT Glucose SerPl-mCnc 93mg/dL Normal [id number] 65 - 99 HHCCT Sodium SerPl-sCnc 138mmol/L Normal [id number] 136 - 145 HHCCT Neutrophils num Bld Auto 5.04Thou/uL Normal [id number] 2 - 7.5 HHCCT Monocytes num Bld Auto 0.61Thou/uL Normal [id number] 0.2 - 1.5 HHCCT Eosinophil num Bld Auto 1.04Thou/uL Above high normal [id number] 0 - 0.7 HHCCT WBC num Bld Auto 8.3Thou/uL Normal [id number] 4 - 11 HHCCT MCHC RBC Auto-mCnc 30.8g/dL Normal [id number] 30 - 36 HHCCT Monocytes/leuk NFr Bld Auto 7.3% Normal [id number] HHCCT Hct VFr Bld Auto 35.1% Below low normal [id number] 39 - 54 HHCCT RBC num Bld Auto 3.37Mil/uL Below low normal [id number] 4. 5 - 6.2 HHCCT RDW RBC Auto-Rto 16% Above high normal [id number] 11.5 - 14.5 HHCCT PMV Bld Auto 10.5fL Normal [id number] 7.5 - 12.[address] Eosinophil/leuk NFr Bld Auto 12.5% Normal [id number] HHCCT MCH RBC Qn Auto 32pg Above high normal [id number] 27 - 31 HHCCT Basophils/leuk NFr Bld Auto 0.8% Normal [id number] HHCCT Basophils num Bld Auto 0.07Thou/uL Normal [id number] 0 - 0.2 HHCCT Platelet num Bld Auto 247Thou/uL Normal [id number] 150 - 450 HHCCT Neutrophils/leuk NFr Bld Auto 60.4% Normal [id number] HHCCT MCV RBC Auto 104fL Above high normal [id number] 80 - 1 00 HHCCT Lymphocytes/leuk NFr Bld Auto 17.4% Normal [id number] HHCCT Lymphocytes num Bld Auto 1.45Thou/uL Below low normal [id number] 1.5 - 4.5 HHCCT Imm Granulocytes/leuk NFr Bld Auto 1.6% Normal [id number] HHCCT Hgb Bld-mCnc 10.8g/dL Below low normal [id number] 13 - 17 .7 HHCCT Imm Granulocytes num Bld Auto 0.13Thou/uL Above high normal [id number] 0 - 0.1 HHCCT LMWH PPP [employer] Clerk-aCnc 0.58IU/mL Normal [id number] HHCCT CO2 BldV-sCnc 33mmol/L Above high normal [id number] 23 - 29 HHCCT Base excess BldA Calc-sCnc 4.9mmol/L Normal [id number] HHCCT pH BldV 7.35 Normal [id number] 7.33 - 7.43 HHCCT pCO2 BldV 58mmHG Above high normal [id number] 35 - 50 HHCCT pO2 BldV 46mmHG Normal [id number] 0 - 60 HHCCT Anticoagulant IV HEPARIN, UNFRACTIONATED Normal [id number] HHCCT Anticoagulant IV HEPARIN, UNFRACTIONATED Normal [id number] HHCCT Delta Normal [id number] - 3 HHCCT Troponin T SerPl-mCnc 36ng/L Above high normal [id number] - 23 HHCCT Neutrophils num Bld Auto 5.22Thou/uL Normal [id number] 2 - 7.5 HHCCT Monocytes num Bld Auto 0.62Thou/uL Normal [id number] 0.2 - 1.5 HHCCT Eosinophil num Bld Auto 0.86Thou/uL Above high normal [id number] 0 - 0.7 HHCCT WBC num Bld Auto 8.2Thou/uL Normal [id number] 4 - 11 HHCCT MCHC RBC Auto-mCnc 31.9g/dL Normal [id number] 30 - 36 HHCCT Monocytes/leuk NFr Bld Auto 7.5% Normal [id number] HHCCT Hct VFr Bld Auto 33.9% Below low normal [id number] 39 - 54 HHCCT RBC num Bld Auto 3.29Mil/uL Below low normal [id number] 4. 5 - 6.2 HHCCT RDW RBC Auto-Rto 16% Above high normal [id number] 11.5 - 14.5 HHCCT PMV Bld Auto 10.4fL Normal [id number] 7.5 - 12.[address] Eosinophil/leuk NFr Bld Auto 10.4% Normal [id number] HHCCT MCH RBC Qn Auto 32.8pg Above high normal [id number] 27 - 31 HHCCT Basophils/leuk NFr Bld Auto 1% Normal [id number] HHCCT Basophils num Bld Auto 0.08Thou/uL Normal [id number] 0 - 0.2 HHCCT Platelet num Bld Auto 239Thou/uL Normal [id number] 150 - 450 HHCCT Neutrophils/leuk NFr Bld Auto 63.4% Normal [id number] HHCCT MCV RBC Auto 103fL Above high normal [id number] 80 - 1 00 HHCCT Lymphocytes/leuk NFr Bld Auto 16.2% Normal [id number] HHCCT Lymphocytes num Bld Auto 1.33Thou/uL Below low normal [id number] 1.5 - 4.5 HHCCT Imm Granulocytes/leuk NFr Bld Auto 1.5% Normal [id number] HHCCT Hgb Bld-mCnc 10.8g/dL Below low normal [id number] 13 - 17 .7 HHCCT Imm Granulocytes num Bld Auto 0.12Thou/uL Above high normal [id number] 0 - 0.1 HHCCT LMWH PPP [employer] Clerk-aCnc 0.25IU/mL Normal [id number] HHCCT INR PPP 1.1 Normal [id number] HHCCT Prothrombin time 13seconds Normal [id number] 10 - 13.5 HHCCT aPTT PPP 30seconds Normal [id number] 25 - 36 HHCCT Anticoagulant APIXABAN (ELIQUIS) Normal [id number] HHCCT Anticoagulant IV HEPARIN, UNFRACTIONATED Normal [id number] HHCCT Anticoagulant IV HEPARIN, UNFRACTIONATED Normal [id number] HHCCT Respiratory Information NASAL 4 L/MIN Normal [id number] HHCCT Magnesium SerPl-mCnc 1.9mg/dL Normal [id number] 1.6 - 2.7 HHCCT Calcium SerPl-mCnc 9.1mg/dL Normal [id number] 8.7 - 10 .5 HHCCT BUN SerPl-mCnc 10mg/dL Normal [id number] 8 - 21 HH CCT Creat SerPl-mCnc 0.9mg/dL Normal [id number] 0.5 - 1.3 HHCCT GFR/BSA.pred SerPlBld AVV-FDA-XaTOjt 89 Normal [id number] 59 - HHCCT Chloride SerPl-sCnc 100mmol/L Normal [id number] 98 - 107 HHCCT BUN/Creat SerPl 11Ratio Normal [id number] 10 - 25 H HCCT CO2 SerPl-sCnc 27mmol/L Normal [id number] 22 - 33 HH CCT Anion Gap Bld-sCnc 10 Normal [id number] 7 - 17 HHCCT Potassium SerPl-sCnc 4.3mmol/L Normal [id number] 3.4 - 5.3 HHCCT Glucose SerPl-mCnc 102mg/dL Above high normal [id number] 65 - 99 HHCCT Sodium SerPl-sCnc 137mmol/L Normal [id number] 136 - 145 HHCCT Neutrophils num Bld Auto 6.43Thou/uL Normal [id number] 2 - 7.5 HHCCT Monocytes num Bld Auto 0.74Thou/uL Normal [id number] 0.2 - 1.5 HHCCT Eosinophil num Bld Auto 0.89Thou/uL Above high normal [id number] 0 - 0.7 HHCCT WBC num Bld Auto 9.7Thou/uL Normal [id number] 4 - 11 HHCCT MCHC RBC Auto-mCnc 31.5g/dL Normal [id number] 30 - 36 HHCCT Monocytes/leuk NFr Bld Auto 7.6% Normal [id number] HHCCT Hct VFr Bld Auto 35.5% Below low normal [id number] 39 - 54 HHCCT RBC num Bld Auto 3.42Mil/uL Below low normal [id number] 4. 5 - 6.2 HHCCT RDW RBC Auto-Rto 16.1% Above high normal [id number] 11.5 - 14.5 HHCCT PMV Bld Auto 10.8fL Normal [id number] 7.5 - 12.[address] Eosinophil/leuk NFr Bld Auto 9.2% Normal [id number] HHCCT MCH RBC Qn Auto 32.7pg Above high normal [id number] 27 - 31 HHCCT Basophils/leuk NFr Bld Auto 0.8% Normal [id number] [facility] Basophils num Bld Auto 0.08Thou/uL Normal [id number] 0 - 0.2 HHCCT Platelet num Bld Auto 263Thou/uL Normal [id number] 150 - 450 HHCCT Neutrophils/leuk NFr Bld Auto 66.3% Normal [id number] [facility] M[facility] RBC Auto 104fL Above high normal [id number] 80 - 1 00 HHCCT Lymphocytes/leuk NFr Bld Auto 15% Normal [id number] CCT Lymphocytes num Bld Auto 1.46Thou/uL Below low normal [id number] 1.5 - 4.5 HHCCT Imm Granulocytes/leuk NFr Bld Auto 1.1% Normal [id number] HHCCT Hgb Bld-mCnc 11.2g/dL Below low normal [id number] 13 - 17 .7 HHCCT Imm Granulocytes num Bld Auto 0.11Thou/uL Above high normal [id number] 0 - 0.1 HHCCT History of Medication Use Medication Directions Dispensed Refills Start Date End Date Stat diltiazem (CARDIZEM CD) 240 MG 24 hr capsule Take 1 capsule (240 mg total) by mouth daily. 06/13/2024 08/24/9999 active polyethylene glycol (miraLAx) 17 g packet Take 1 packet (17 g total) by mouth daily. 06/13/2024 08/24/9999 active docusate sodium (COLACE) 100 MG capsule Take 1 capsule (100 mg total) by mouth 2 (two) times a day. 06/13/2024 08/24/9999 active Lipitor 10 MG tablet Take 1 tablet (10 mg total) by mouth. 05/02/2024 active latanoprostene (VYZULTA) 0.024 % ophthalmic solution Administer 1 drop to both eyes nightly. 05/02/2024 active acetaminophen (TYLENOL) 325 MG tablet Take 3 tablets (975 mg total) by mouth every 8 (eight) hours around the clock. 05/02/2024 active pyridoxine (VITAMIN B-6) 50 mg tablet Take 1 tablet (50 mg total) by mouth daily. 05/02/2024 active predniSONE (DELTASONE) 10 MG tablet Take 1 tablet (10 mg total) by mouth every morning with breakfast. With food. Do not start before May 03, 2024. 05/02/2024 active senna (SENOKOT) 8.6 MG Tab tablet Take 2 tablets by mouth daily. 05/02/2024 active predniSONE (DELTASONE) 50 MG tablet Take 1 tablet (50 mg total) by mouth daily. With food. Do not start before April 21, 2024. 05/02/2024 active predniSONE (DELTASONE) 20 MG tablet Take 2 tablets (40 mg total) by mouth daily. With food. Do not start before April 24, 2024. 05/02/2024 active predniSONE (DELTASONE) 20 MG tablet Take 3 tablets (60 mg total) by mouth every morning with breakfast. With food. Do not start before April 20, 2024. 05/02/2024 active oxyCODONE (ROXICODONE) 10 mg immediate release tablet Take 1 tablet (10 mg total) by mouth every 4 (four) hours as needed for severe pain or moderate pain. Max Daily Amount: 60 mg 05/02/2024 active predniSONE (DELTASONE) 10 MG tablet Take 3 tablets (30 mg total) by mouth daily. With food. Do not start before April 27, 2024. 05/02/2024 active diltiazem (CARDIZEM CD) 120 MG 24 hr capsule 05/02/2024 active metoPROLOL TARTRATE (LOPRESSOR) 50 MG tablet Take 1 tablet (50 mg total) by mouth 2 (two) times a day. 05/02/2024 active pregabalin (LYRICA) 75 MG capsule Take 1 capsule (75 mg total) by mouth daily. 05/02/2024 active fentaNYL (DURAGESIC) 100 mcg/hr patch Place 1 patch on the skin every third day (72 hrs). Max Daily Amount: 1 patch 05/02/2024 active buPROPion (WELLBUTRIN SR) 150 MG 12 hr tablet Take 1 tablet (150 mg total) by mouth. 05/02/2024 active predniSONE (DELTASONE) 20 MG tablet Take 1 tablet (20 mg total) by mouth daily. With food. Do not start before April 30, 2024. 05/02/2024 active fluticasone-umeclidin ium-vilanterol (Trelegy Ellipta) 100-62.5-25 mcg/act inhaler Inhale 1 puff daily. 05/02/2024 active multivitamin Tab tablet Take 1 tablet by mouth daily. 05/02/2024 active apixaban (ELIQUIS) 5 MG tablet Take 1 tablet (5 mg total) by mouth 2 (two) times a day. 05/02/2024 active ipratropium-albuterol (DUONEB) 0.5-2.5 mg/3 mL nebulizer solution Take 3 mL by nebulization 4 times daily (every 6 hours) as needed for wheezing or shortness of breath. 05/02/2024 active albuterol (PROAIR RESPICLICK) 108 (90 Base) MCG/ACT inhaler Inhale 2 puffs every 4 (four) hours as needed for wheezing or shortness of breath. 05/02/2024 active cholecalciferol (CHOLECALCIFEROL) 25 MCG (1000 UT) tablet Take 1 tablet (1,000 Units total) by mouth daily. 05/02/2024 active Problems Problem Status Onset Date Problem Type Date of Resoluti on Source Acute and chronic respiratory failure with hypoxia active 2024-04-03 ProblemAct [facility] Paroxysmal atrial fibrillation active 2024-04-03 ProblemAct [facility] Acute cystitis without hematuria active 2024-05-08 ProblemAct [facility] MDS (myelodysplastic syndrome) active 2024-05-17 ProblemAct [facility] Peripheral neuropathy active 2024-05-17 ProblemAct [facility] Chronic obstructive pulmonary disease, unspecified active 2024-04-03 ProblemAct [facility] Recurrent pneumothorax active 2024-05-07 ProblemAct [facility] Chronic respiratory failure with hypoxia active 2024-05-17 ProblemAct [facility] Spontaneous pneumothorax active 2024-04-09 ProblemAct [facility] Bacteremia due to Klebsiella pneumoniae active 2024-05-08 ProblemAct [facility]
== END 2024-08-26 13:12 | disposition home or self-care (01) ==
LOC: HO.HVNA 13:11
PROVIDERS: Visit Provider Family Medicine
DX: R06.02 Shortness of breath (principal); R53.1 Weakness; I10 Essential (primary) hypertension
CPT/HCPCS: 36415; 80053; 85025

== ENCOUNTER 2024-11-29 13:02 | Inpatient (IN) | payer MEDICARE, OTHER, SELFPAY ==
[2024-11-29] VITALS (14 sets, daily range): BP systolic 106–138; BP diastolic 47–67; PULSE 89–126; RESP 16–30; TEMP 38–38.7; O2SAT 91–98; BMI 33.0
--- NOTE | ~2024-11-29 | CT_ITS ---
EXAMINATION: CT CHEST WITH CONTRAST CLINICAL INFORMATION: Tachypnea, altered mental status. Rule out pneumonia or pneumothorax. COMPARISON: None available. TECHNIQUE: Multidetector volumetric CT imaging of the chest was obtained after the administration of 50 mL of Omnipaque 350 intravenous contrast without immediate adverse reactions. Axial MIP volume rendering provided. Sagittal and coronal reformatted images were obtained. This CT examination was performed using dose optimization techniques as appropriate, variously including the following: *Automated exposure control *Adjustment of mA and/or kV according to patient size (this includes techniques or standardized protocols for targeted exams where dose is matched to indication/reason for exam; i.e. extremities or head) *Use of iterative reconstruction technique FINDINGS: LUNGS: Moderately limited by extensive motion degradation. Elevated right hemidiaphragm. There are peribronchial consolidative opacities throughout both lungs most confluent in the upper lobes, and superior segments of the lower lobes. There is involvement of the lingula. There is associated diffuse small airway thickening with foci of endobronchial mucous plugging. Findings are in keeping with multifocal pneumonia. There are no effusions. There is moderate centrilobular emphysema. There is mosaic attenuation, likely secondary to air trapping. There is a right lower lung posterior calcified pleural plaque. No large nodules detected allowing for motion. MEDIASTINUM: There is mild cardiac enlargement. There is no pericardial effusion. There are small mediastinal lymph nodes, presumably reactive. Expiratory appearance of the trachea. Aorta is nonaneurysmal. There is moderate calcific atheromatous plaque. Main pulmonary artery is prominent suggesting increased pulmonary pressures. Esophagus is mildly patulous. There is a probable small type I hiatus hernia. AXILLA/CHEST WALL: No lymphadenopathy. UPPER ABDOMEN: Refer to the dedicated abdominal CT performed concurrently. OSSEOUS STRUCTURES: No suspicious lytic or blastic bone lesion evident. There are spinal degenerative changes. CT/CT chest w IV con IMPRESSION: 1. Multifocal pneumonia, most confluent in the upper lobes, lingula, and superior segments of the lower lobes. There is associated diffuse thickening of the small airways with foci of endobronchial mucous plugging. 2. No effusions. No pneumothorax. 3. Right dorsal calcified pleural plaque. 4. Mild cardiomegaly. Enlarged main pulmonary artery suggests pulmonary hypertension. Electronically signed by: Larry Genao MD 11/29/2024 04:27 PM EDT
--- NOTE | ~2024-11-29 | CT_ITS ---
EXAMINATION: CT CERVICAL SPINE WITHOUT CONTRAST CLINICAL INFORMATION: Change in mental status. Rule out fracture. COMPARISON: None available. TECHNIQUE: Spiral CT imaging of the cervical spine performed in axial plane without contrast. Multiplanar reformatted images were constructed from the axial data set. This CT examination was performed using dose optimization techniques as appropriate, variously including the following: *Automated exposure control *Adjustment of mA and/or kV according to patient size (this includes techniques or standardized protocols for targeted exams where dose is matched to indication/reason for exam; i.e. extremities or head) *Use of iterative reconstruction technique FINDINGS: CORONAL ALIGNMENT: -Minimal levoconvex scoliosis centered at C3. SAGITTAL ALIGNMENT: -Mild straightening of the normal lordosis. -There is a 2 mm degenerative type anterolisthesis of C3 on C4, and C4 and C5, and minimal degenerative retrolistheses of C5 on C6 and C6 on C7. C1-C2 AND CRANIOCERVICAL JUNCTION: -Intact and aligned. Moderate degenerative arthritis. VERTEBRAL BODIES AND FACETS: -No fractures, compression deformities, or evidence of traumatic subluxation. No suspicious bone lesions. -Normal facet alignment bilaterally. Multilevel left greater than right. Atrophic degenerative facet change most notable spanning C3-C5. DISCS: -Mild to moderate diffuse disc degeneration, most significant at C5-6. CENTRAL CANAL: -No evidence of high-grade central canal narrowing or large disc herniation allowing for modality limitations. PREVERTEBRAL AND PARAVERTEBRAL SOFT TISSUES: -No pre or paravertebral soft tissue swelling. -Moderate carotid bulb calcifications left greater than right. -Normal thyroid. LUNG APICES: -Irregular peribronchial consolidative opacities bilaterally consistent with bilateral pneumonia. Refer to the dedicated chest CT performed concurrently. CT/CT cervical spine wo IV con IMPRESSION: 1. No CT evidence of acute cervical spine fracture or injury. 2. Mild to moderate degenerative spondylosis as discussed. 3. Irregular peribronchial consolidative opacities bilaterally within the imaged lung apices, consistent with bilateral pneumonia. Refer to the dedicated chest CT performed concurrently. Electronically signed by: Larry Genao MD 11/29/2024 04:18 PM EDT
--- NOTE | ~2024-11-29 | CT_ITS ---
EXAMINATION: CT HEAD WITHOUT CONTRAST CLINICAL INFORMATION: Mental status changes; rule out fracture or bleed. COMPARISON: None available. TECHNIQUE: Contiguous axial imaging was performed from the skull base to vertex without intravenous administration of contrast. This CT examination was performed using dose optimization techniques as appropriate, variously including the following: *Automated exposure control *Adjustment of mA and/or kV according to patient size (this includes techniques or standardized protocols for targeted exams where dose is matched to indication/reason for exam; i.e. extremities or head) *Use of iterative reconstruction technique FINDINGS: There is no evidence of intracranial hemorrhage or extra-axial fluid collection. There is no mass effect, or edema. No CT evidence of acute territorial infarct. Ventricles, sulci, and cisterns are normal in size and configuration for patient age. No hydrocephalus. No midline shift. Negative hyperdense MCA sign. Negative insular ribbon sign. Small arachnoid cyst in the anterior right middle cranial fossa. Patchy periventricular and deep white matter hypoattenuation is consistent with mild to moderate small vessel ischemic changes. Normal pituitary. Mild atheromatous calcification of the bilateral carotid siphons. Globes and orbital contents image normally. There are bilateral lens replacements. No extracranial soft tissue abnormalities. The paranasal sinuses, mastoid air cells, and tympanic cavities are normally aerated. No suspicious bony abnormalities. There are degenerative changes in both TM joints. There are no acute fractures evident. CT/CT head/brain wo IV con IMPRESSION: No acute intracranial abnormality. No fracture seen. Electronically signed by: Larry Genao MD 11/29/2024 04:12 PM EDT
--- NOTE | ~2024-11-29 | XR_ITS ---
EXAMINATION: XR CHEST CLINICAL INFORMATION: sob COMPARISON: CT chest 11/29/2024. TECHNIQUE: Frontal view of the chest was obtained. FINDINGS: Borderline cardiac enlargement. Mediastinal and hilar contours appear normal. Aortic mural calcification. Lungs demonstrate improved but persistent patchy airspace opacities in both lungs with sparing of the right base. No pneumothorax or effusion. No focal osseous or soft tissue abnormality. Degenerative changes of the shoulder joints and spine. XR/XR chest 1V IMPRESSION: 1. Improving but persistent multifocal pneumonia with sparing of the right base. Electronically signed by: Larry Genao MD 12/03/2024 08:16 AM EDT
--- NOTE | ~2024-11-29 | CT_ITS ---
EXAMINATION: CT ABDOMEN AND PELVIS WITH CONTRAST CLINICAL INFORMATION: Diffuse abdominal tenderness, mental status changes. Multifocal pneumonia. COMPARISON: None available. TECHNIQUE: Multidetector volumetric images were obtained from the superior aspect of the liver through the pubic symphysis following administration 85 mL of Omnipaque 350 intravenous contrast. Sagittal and coronal reformatted images were obtained on the technologist's workstation. Oral contrast: No This CT examination was performed using dose optimization techniques as appropriate, variously including the following: *Automated exposure control *Adjustment of mA and/or kV according to patient size (this includes techniques or standardized protocols for targeted exams where dose is matched to indication/reason for exam; i.e. extremities or head) *Use of iterative reconstruction technique FINDINGS: Moderate motion degradation, limiting sensitivity of the study. LUNG BASES: Refer to the dedicated chest CT. Elevated right hemidiaphragm. LIVER, GALLBLADDER, AND BILIARY TREE: The liver is normal in size, shape, and attenuation. No focal hepatic lesion or biliary ductal dilatation is present. The gallbladder is unremarkable with no evidence of radiopaque gallstones, gallbladder wall thickening, or obvious pericholecystic inflammatory changes. PANCREAS: Moderate to severe fatty atrophy. SPLEEN: Normal allowing for motion.. ADRENAL GLANDS: Normal. KIDNEYS AND URETERS: The kidneys are normal in size, shape, and attenuation (allowing for motion). No hydronephrosis, hydroureter, or calculi seen. No perinephric stranding. BLADDER: Collapsed around a Florez catheter balloon. GASTROINTESTINAL TRACT: There is extensive colonic diverticulosis. There is no evidence of acute diverticulitis. There is a probable anastomosis in the distal sigmoid region. Normal appendix. Normal small bowel. Stomach is decompressed. Duodenum appears normal. No rectal abnormality. ABDOMINAL WALL: No significant hernia is appreciated. LYMPH NODES: None enlarged by size criteria. VASCULAR: Extensive calcific atheromatous plaque of the aorta and iliac vessels. No aneurysm. PELVIC VISCERA: Unremarkable. OSSEOUS STRUCTURES: Diffuse osteopenia. No definite acute fracture. There are small foci of AVN of both femoral heads without subchondral collapse. Mild to moderate degenerative changes in both hip joints. Degenerative changes throughout the spine. There is partial ankylosis of the SI joints bilaterally. There is a mild superior endplate compression deformity of L4, likely chronic. CT/CT abdomen pelvis w IV con IMPRESSION: 1. Motion degraded exam. No acute findings in the abdomen or pelvis. 2. See the body of the report for ancillary findings. Electronically signed by: Larry Genao MD 11/29/2024 04:34 PM EDT
--- NOTE | 2024-11-29 13:13 | ED_ITS ---
HPI - Altered Mental Status General Chief Complaint: General Medical Stated Complaint: SEMI RESP,LOW SAT 84% RA,?NARCOTIC USE Time Seen by Provider: 11/29/24 13:04 Source: EMS Mode of arrival: EMS Limitations: altered mental status History of Present Illness ED Provider: Dr. Jean-Paul King HPI narrative: 78 year old male with past medical history of COPD with chronic respiratory failure with hypoxia, HLD, BPH, chronic lower back pain on morphine and fentanyl patches, arthritis he was brought to emergency department by ambulance for evaluation of altered mental status. Patient was not able to give a history, he makes moaning noises but does not respond to verbal questioning. According to EMS, the patient was normally awake, alert and oriented. The patient was picked up in his home for altered mental status. the people at the patient's home report that he was goofy yesterday. Today the patient was altered compared to his baseline, not talk and appeared somnolent. Paramedics report that the patient had an empty bottle of lorazepam which was felt 2 weeks prior with a total of 84 pills. Patient also takes liquid morphine and has fentanyl patches patient had to 100 mcg fentanyl patches on his body. On presentation, patient was found to be febrile with a temperature of a 101.9 degrees rectally. lung exam revealed wheezing and diffuse rhonchi with no rales. Patient's was admitted from 03/28/2024 until 04/03/2024 with sudden onset of shortness of breath secondary to spontaneous right-sided pneumothorax felt to be secondary to COPD with blebs which caused acute respiratory failure with hypoxia treated with chest tube. Related Data Home Medications ?Medication ?Instructions ?Recorded ?Confirmed atorvastatin 10 mg tablet 10 mg PO DAILY 06/19/20 03/28/24 cholecalciferol (vitamin D3) 25 25 mcg PO DAILY 10/17/23 03/28/24 mcg (1,000 unit) tablet multivitamin 1 tab PO DAILY 10/17/23 03/28/24 latanoprostene bunod 0.024 % eye 1 drp ophthalmic (eye) BEDTIME 01/07/24 03/28/24 drops (Vyzulta) pregabalin 75 mg capsule 75 mg PO DAILY 01/07/24 03/28/24 pyridoxine (vitamin B6) 50 mg 50 mg PO DAILY 01/07/24 03/28/24 capsule (Vitamin B-6) triamcinolone acetonide 0.1 % 1 appl topical DAILY PRN Rash 01/07/24 03/28/24 topical cream prednisone 10 mg tablet 10 mg PO DAILY 02/28/24 03/28/24 metoprolol tartrate 50 mg tablet 50 mg PO BID 03/28/24 03/28/24 Previous Rx's ?Medication ?Instructions ?Recorded apixaban 5 mg tablet (Eliquis) 5 mg PO BID #60 tabs 01/13/24 fentanyl 100 mcg/hr transdermal 1 patch topical Q3D@1800 #1 ea 04/03/24 patch oxycodone 5 mg tablet 5 mg PO Q8H PRN Pain #10 tabs 04/03/24 fluticasone fur. 100 mcg-umeclid 1 ea inhalation DAILY #180 ea 05/21/24 62.5 mcg-vilant 25 mcg inhalat.powder (Trelegy Ellipta) albuterol sulfate 90 mcg/actuation 2 puff inhalation Q4H PRN 08/02/24 aerosol inhaler Shortness Of Breath Or Wheezing #1 ea ipratropium 0.5 mg-albuterol 3 mg 3 ml inhalation QID PRN dyspnea 08/03/24 (2.5 mg base)/3 mL nebulization #180 mL soln Allergies Allergy/AdvReac Type Severity Reaction Status Date / Time No Known Allergies Allergy Mild NONE Verified 11/29/24 13:14 [facility] Past Medical History Medical History HLD (hyperlipidemia) Osteoarthritis BPH (benign prostatic hyperplasia) Skin lesion of back Chronic obstructive pulmonary disease, unspecified Diverticulosis of large intestine without perforation or abscess without bleeding 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 Surgical History History of excision of lesion (~04/17/23) History of repair of rotator cuff History of colon resection (~2001) Family History Family History Mother Hypertension Father Hypertension Social History Social History Household Members: None Housing: House Do you presently have visiting nurse or other home services: Yes Unable to assess alcohol history related to: Unable to respond Alcohol intake: never Comment: pt refusing alarms Patient Tobacco Use Status: Former Tobacco user Tobacco use type: Cigarette Use of substances other than those prescribed or required for medical reasons: Unable to respond Advance Directives: Yes Advance Directives on File: Yes Advance Directives Date on File: 03/29/24 service: No Current occupational status: employed and retired 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 /[employer] Physical Exam ED Vital Signs: Vital Signs - 24 hr 11/29/24 13:09 11/29/24 13:19 11/29/24 14:45 Temperature 101.7 F H Pulse Rate 126 H 126 H 121 H Respiratory Rate 22 H 22 H 30 H Blood Pressure 138/67 Pulse Oximetry 96 Oxygen Delivery Method Nasal Cannula Oxygen Flow Rate 11/29/24 14:50 11/29/24 15:05 11/29/24 15:14 Temperature 100.9 F H Pulse Rate 121 H 116 H 110 H Respiratory Rate 20 22 H 20 Blood Pressure 135/54 L 135/54 L 121/52 L Pulse Oximetry 93 92 93 Oxygen Delivery Method Nasal Cannula with ETCO2 Nasal Cannula Oxygen Flow Rate 3 3 11/29/24 15:47 11/29/24 17:14 Temperature 100.4 F 100.4 F Pulse Rate 89 110 H Respiratory Rate 25 H 22 H Blood Pressure 114/50 L 114/57 L Pulse Oximetry 98 96 Oxygen Delivery Method Nasal Cannula Nasal Cannula Oxygen Flow Rate 2 2 BMI result Body Mass Index 33.0 Exam: General: awake, nonverbal, moaning, not responding to verbal stimuli, does withdraw to painful stimuli , strong ketotic odor to his breath Head: Normocephalic, atraumatic EENT: PERRL, Lids normal, sclera normal, conjunctiva normal, nose normal , ears normal, throat without erythema or exudates Neck: Supple, no adenopathy Lung: breath sounds symmetric, diffuse wheezing, diffuse rhonchi with no rales Chest: symmetric movement, nontender Heart: tachycardia with an irregular irregular rhythmnormal S1, S2 no murmurs or rubs Abdomen: soft, moderate to severe lower abdominal tenderness, nondistended, normal bowel sounds Extremities: trace pitting edema, moves all extremities symmetrically Neuro: Awake, making noises, does not respond to verbal stimuli but does respond to painful stimuli, moves extremities symmetrically Medications Administered Discontinued Medications Generic Name Dose Route Start Last Admin Trade Name Freq PRN Reason Stop Dose Admin Acetaminophen 650 mg 11/29/24 13:21 11/29/24 13:41 Acetaminophen Supp 650 Mg Supp.Rect NE 11/29/24 13:22 650 mg ONCE ONE Administration Levalbuterol HCl 5 mg/ 0 mg 11/29/24 14:45 11/29/24 14:58 Ipratropium [place] 0.5 mg INHALE 11/29/24 14:46 1 dose ONCE ONE Administration Lactated Ringer's 2,121 mls @ 2,121 mls/hr 11/29/24 13:13 11/29/24 15:00 Lr IV 11/29/24 14:12 Infused .Q1H ONE Infusion Piperacillin Sod/Tazobactam 100 mls @ 200 mls/hr 11/29/24 13:39 11/29/24 15:06 Sod 4.5 gm/ Sodium Chloride IV 11/29/24 14:08 Infused ONCE ONE Infusion Folic Acid 1 mg/ Sodium 50.2 mls @ 100.4 mls/hr 11/29/24 16:00 11/29/24 16:34 Chloride IV 11/29/24 16:29 Infused ONCE ONE Infusion Thiamine HCl 400 mg/ Sodium 104 mls @ 208 mls/hr 11/29/24 15:26 11/29/24 16:34 Chloride IV 11/29/24 15:55 Infused ONCE ONE Infusion Iohexol 85 ml 11/29/24 15:54 11/29/24 15:54 Iohexol 350 Mg/Ml 100 Ml Infus..Btl IV 11/29/24 15:55 85 ml ONCE ONE Administration Levalbuterol HCl 3.75 mg 11/29/24 13:12 11/29/24 13:14 Levalbuterol Hcl 1.25 Mg/3 Ml Vial.Neb INHALE 11/29/24 13:13 3.75 mg ONCE ONE Administration Midazolam HCl 4 mg 11/29/24 14:21 11/29/24 14:28 Midazolam Hcl 2 Mg/2 Ml Vial IVPUSH 11/29/24 14:22 4 mg ONCE ONE Administration Medical Decision Making Medical Decision Making MDM Narrative: 78 year old male with past medical history of spontaneous pneumothorax,COPD with chronic respiratory failure with hypoxia, HLD, BPH, chronic lower back pain on morphine and fentanyl patches, arthritis he was brought to emergency department by ambulance for evaluation of altered mental status starting yesterday and more profound today according to paramedics. vital signs revealed an elevated respiratory rate, elevated heart rate and rectal temperature Patient was not able to give a history, he makes moaning noises but does not respond to verbal questioning. According to EMS, the patient was normally awake, alert and oriented. The patient was picked up in his home for altered mental status. the people at the patient's home report that he was goofy yesterday. Today the patient was altered compared to his baseline, not talk and appeared somnolent. Paramedics report that the patient had an empty bottle of lorazepam which was felt 2 weeks prior with a total of 84 pills. Patient also takes liquid morphine and has fentanyl patches patient had to 100 mcg fentanyl patches on his body. On presentation, patient was found to be febrile with a temperature of a 101.7 degrees rectally, tachycardia 126, tachypnea with a respiratory rate of 22 and O2 saturation was 96% on 4 L nasal cannula. you had a ketotic odor to his breath. Lung exam revealed wheezing and diffuse rhonchi with no rales, with trace pitting edema in her in his lower extremities. 13:27 Differential diagnosis: Includes but is not limited to closed head injury, skull fracture, intracranial bleed, neck fracture, pneumonia, pneumothorax,urinary tract infection, unintentional opiate / fentanyl overdose, benzodiazepine overdose, anemia, electrolyte abnormalities Course: 13:27 Patient was made a sepsis protocol based on his vital signs and presentation. patient was ordered to get Zosyn 4.5 g IV. Patient is obese with an elevated BMI of 33.0 kg, therefore he was given a 30cc per kg lactated Ringer's bolus based on his ideal body weight. 14:25 patient was given Versed 4 mg IV prior to CT scan secondary to his restlessness and inability to stay still for the scan. 15:10 my interpretation patient's laboratory evaluation as follows: WBC was elevated 18,500 Chronic normocytic anemia with an H&H of 10.6 and 30.2 4. INR elevated 1.2. Glucose elevated 145. Bilirubin elevated 1.4 troponin was elevated 128, repeat is due at 16:25 hours. BNP elevated 964. CK elevated 366. venous blood gas revealed slight elevation pH of 7.42, elevated pCO2 48, elevated bicarb of 32. Beta hydroxybutyrate elevated 1.82. TSH was normal. Urinalysis revealed a concentrated urine, positive protein, positive blood. Microscopic revealed 6-10 RBCs, 0-5 WBCs, no bacteria -suggests that the patient was dehydrated been narrow urinary tract infection as the cause of his fever. Urine tox screen was positive for opiates, oxycodone, fentanyl. tox screen was negative for benzodiazepines however I am not certain if lorazepam would make this screen positive, patient does take this medication on a regular basis and did have an empty bottle at home Patient's ethanol was below detectable limits. COVID-19, RSV and influenza were negative. TSH was normal. 1st troponin was 128. Repeat was 161 which did not reach the 50% delta. COVID-19, RSV and influenza were negative. Given his normocytic anemia I did order B12 and folic acid testing. Patient was treated with thiamine 400 mg IV and folic acid 1 mg IV. 17:[address] scan of the patient's head and cervical spine revealed no acute abnormalities, the patient was have white matter changes in the brain which are chronic. CT scan of the cervical spine revealed no acute fractures but he does have degenerative changes. CT scan of the abdomen pelvis did not reveal any clear etiology for the patient's abdominal tenderness. There were multiple incidental findings including moderate to severe fatty atrophy of the pancreas, extensive colonic diverticulosis with no diverticulitis. Probable anastomosis in the distal sigmoid region with a normal-appearing appendix The patient's presentation, hypoxia and CT scan of the chest-consistent with multifocal pneumonia with most confluent in the upper lobes lingular lobes and superior segments of the lower lobe 17:37 I did discuss the patient's presentation over tiger text with the covering hospitalist, Dr. Lowe and the patient will be admitted to the hospitalist service for further treatment. Admission/Observation Consideration of admission/observation: Escalation of care including admission/observation considered ( yes) Lab Data MDM Lab Attestation statement: I reviewed the patient's lab results. 11/29/24 13:25 11/29/24 13:25 Labs: Lab Results 11/29/24 11/29/24 11/29/24 Range/Units 13:11 13:25 13:32 WBC 18.5 H (4.8-10.8) X10*3/uL RBC 2.88 L (4.60-5.80) X10*6/uL Hgb 10.6 L (14.0-18.0) g/dl Hct 30.2 L (42.0-52.0) % MCV 104.9 H (80.0-98.0) fL MCH 36.8 H (27.0-33.0) pg MCHC 35.1 (31.0-36.0) g/dl RDW 16.4 H (11.0-16.0) % Plt Count 182 D (160-400) X10*3/uL MPV 10.5 (9.4-12.4) fL Immature Gran % (Auto) 0.8 H (0.0-0.4) % Neut % (Auto) 87.6 H (45-73) % Lymph % (Auto) 5.2 L (20-40) % [place] % (Auto) 6.0 (2-11) % Eos % (Auto) 0.1 (0-4) % Baso % (Auto) 0.3 (0-2) % Lymph # (Auto) 1.0 L (1.2-4.9) X10*3/uL [place] # (Auto) 1.1 (0.1-1.2) X10*3/uL Eos # (Auto) 0.0 (0.0-0.4) X10*3/uL Baso # (Auto) 0.1 (0.0-0.2) X10*3/uL Abs Immat Gran (auto) 0.15 H (0.00-0.03) X10*3/uL Absolute Neuts (auto) 16.2 H (2.0-8.3) x10*3/uL Absolute Nucleated RBC 0.020 H (0.0-0.012) X10*3/uL Nucleated RBC % (auto) 0.1 (0.0-0.2) /100WBC PT 13.6 H (10.9-12.4) SEC INR 1.2 H (0.9-1.1) APTT 29.2 (26.0-36.8) SEC VBG pH 7.42 (7.32-7.43) VBG pCO2 48 mmHg VBG pO2 39 mmHg VBG HCO3 32 H (22-26) mmol/L VBG O2 Saturation 63.0 % VBG Base Excess 6.9 mmol/L Sodium 139 (135-145) mmol/L Potassium 4.4 (3.3-5.1) mmol/L Chloride 99 (96-108) mmol/L Carbon Dioxide 28 (22-29) mmol/L Anion Gap 16 (12-20) BUN 13 (9-16) mg/dL Creatinine 1.05 (0.5-1.4) mg/dL Estim Creat Clear Calc 69.1 Estimated GFR > 60 POC Glucose 147 H (60-115) mg/dL Random Glucose 145 H (60-115) mg/dL Lactic Acid 1.3 (0.5-2.0) mmol/L Calcium 8.8 (8.4-10.2) mg/dL Magnesium 1.8 (1.6-2.6) mg/dL Total Bilirubin 1.4 H (0.0-1.0) mg/dL Direct Bilirubin 0.5 (0.0-0.5) mg/dL AST 33 (5-37) U/L ALT 23 (0-40) U/L Alkaline Phosphatase 60 (39-117) U/L Total Creatine Kinase 367 H (38-174) U/L Troponin I High Sens 128.0 H* D (<3.5-35.0) ng/L B-Natriuretic Peptide 964 H (<100) pg/mL Total Protein 6.7 (6.5-8.0) g/dL Albumin 3.6 (3.5-5.0) g/dL Lipase < 4 L (8-78) U/L Vitamin B12 (200-900) pg/mL Folate (> or = 4.0) ng/mL Beta-Hydroxybutyrate 1.82 H (0.02-0.27) mmol/L TSH 1.34 (0.32-4.0) uIU/mL Urine Color Urine Appearance Urine pH (5.0-9.0) Ur Specific [place] (1.005-1.025) Urine Protein (Neg-Trace) mg/dL Urine Glucose (UA) (Negative) mg/dL Urine Ketones (Negative) mg/dL Urine Blood (Negative) Urine Nitrite (Negative) Ur Leukocyte Esterase (Negative) Urine RBC (0-2) /HPF Urine WBC (0-5) /HPF Ur Squamous Epith Cells (0-2) /HPF Urine Bacteria (None Seen) Hyaline Casts (0-2) /LPF Granular Casts Urine Opiates Screen (Not Detect) Ur Buprenorphine Scrn (Not Detect) ng/mL Ur Oxycodone Screen (Not Detect) ng/mL Urine Methadone Screen (Not Detect) ng/mL Urine Fentanyl Screen (Not Detect) Ur Barbiturates Screen (Not Detect) Ur Phencyclidine Scrn (Not Detect) Ur Amphetamines Screen (Not Detect) U Benzodiazepines Scrn (Not Detect) Urine Cocaine Screen (Not Detect) U Marijuana (THC) Screen (Not Detect) Ethyl Alcohol < 10 mg/dL Influenza Type A (PCR) (Negative) Influenza Type B (PCR) (Negative) RSV RNA Qual (PCR) (Negative) SARS-CoV-2 RNA (RT-PCR) (Negative) 11/29/24 11/29/24 11/29/24 Range/Units 13:33 14:01 15:52 WBC (4.8-10.8) X10*3/uL RBC (4.60-5.80) X10*6/uL Hgb (14.0-18.0) g/dl Hct (42.0-52.0) % MCV (80.0-98.0) fL MCH (27.0-33.0) pg MCHC (31.0-36.0) g/dl RDW (11.0-16.0) % Plt Count (160-400) X10*3/uL MPV (9.4-12.4) fL Immature Gran % (Auto) (0.0-0.4) % Neut % (Auto) (45-73) % Lymph % (Auto) (20-40) % [place] % (Auto) (2-11) % Eos % (Auto) (0-4) % Baso % (Auto) (0-2) % Lymph # (Auto) (1.2-4.9) X10*3/uL [place] # (Auto) (0.1-1.2) X10*3/uL Eos # (Auto) (0.0-0.4) X10*3/uL Baso # (Auto) (0.0-0.2) X10*3/uL Abs Immat Gran (auto) (0.00-0.03) X10*3/uL Absolute Neuts (auto) (2.0-8.3) x10*3/uL Absolute Nucleated RBC (0.0-0.012) X10*3/uL Nucleated RBC % (auto) (0.0-0.2) /100WBC PT (10.9-12.4) SEC INR (0.9-1.1) APTT (26.0-36.8) SEC VBG pH (7.32-7.43) VBG pCO2 mmHg VBG pO2 mmHg VBG HCO3 (22-26) mmol/L VBG O2 Saturation % VBG Base Excess mmol/L Sodium (135-145) mmol/L Potassium (3.3-5.1) mmol/L Chloride (96-108) mmol/L Carbon Dioxide (22-29) mmol/L Anion Gap (12-20) BUN (9-16) mg/dL Creatinine (0.5-1.4) mg/dL Estim Creat Clear Calc Estimated GFR POC Glucose (60-115) mg/dL Random Glucose (60-115) mg/dL Lactic Acid (0.5-2.0) mmol/L Calcium (8.4-10.2) mg/dL Magnesium (1.6-2.6) mg/dL Total Bilirubin (0.0-1.0) mg/dL Direct Bilirubin (0.0-0.5) mg/dL AST (5-37) U/L ALT (0-40) U/L Alkaline Phosphatase (39-117) U/L Total Creatine Kinase (38-174) U/L Troponin I High Sens 161.1 H* (<3.5-35.0) ng/L B-Natriuretic Peptide (<100) pg/mL Total Protein (6.5-8.0) g/dL Albumin (3.5-5.0) g/dL Lipase (8-78) U/L Vitamin B12 1002 H (200-900) pg/mL Folate 15.1 (> or = 4.0) ng/mL Beta-Hydroxybutyrate (0.02-0.27) mmol/L TSH (0.32-4.0) uIU/mL Urine Color Dark Yellow Urine Appearance Clear Urine pH 6.0 (5.0-9.0) Ur Specific [place] >= 1.030 H (1.005-1.025) Urine Protein 300 (3+) H (Neg-Trace) mg/dL Urine Glucose (UA) Negative (Negative) mg/dL Urine Ketones >=160 (Negative) mg/dL Urine Blood Moderate (2+) H (Negative) Urine Nitrite Negative (Negative) Ur Leukocyte Esterase Negative (Negative) Urine RBC 6-10 H (0-2) /HPF Urine WBC 0-5 (0-5) /HPF Ur Squamous Epith Cells 0-2 (0-2) /HPF Urine Bacteria None Seen (None Seen) Hyaline Casts 6-10 (0-2) /LPF Granular Casts Present Urine Opiates Screen POSITIVE H (Not Detect) Ur Buprenorphine Scrn Not Detected (Not Detect) ng/mL Ur Oxycodone Screen Positive H (Not Detect) ng/mL Urine Methadone Screen Not Detected (Not Detect) ng/mL Urine Fentanyl Screen POSITIVE H (Not Detect) Ur Barbiturates Screen Not Detected (Not Detect) Ur Phencyclidine Scrn Not Detected (Not Detect) Ur Amphetamines Screen Not Detected (Not Detect) U Benzodiazepines Scrn Not Detected (Not Detect) Urine Cocaine Screen Not Detected (Not Detect) U Marijuana (THC) Screen Not Detected (Not Detect) Ethyl Alcohol mg/dL Influenza Type A (PCR) NEGATIVE (Negative) Influenza Type B (PCR) NEGATIVE (Negative) RSV RNA Qual (PCR) NEGATIVE (Negative) SARS-CoV-2 RNA (RT-PCR) NEGATIVE (Negative) Independent Interpretation I performed an independent interpretation of an: EKG Interpretation: My independent interpretation patient's 12 EKG done on 11/29/2024 at 14:41 hours is as follows: Atrial fibrillation with RVR with a rate of 126, normal QRS duration, prolonged QTC of 537 milliseconds, occasional PVC noted, no ST segment elevation, less than [address] segment depression V3 through V6, no significant T- wave abnormalities Radiology Impression Discussion of test interpretation with radiology: I have reviewed the radiologist's reading. Radiologist Impression: CT head/brain wo IV con IMPRESSION: No acute intracranial abnormality. No fracture seen. Electronically signed by: Larry Genao MD 11/29/2024 04:[address] cervical spine wo IV con IMPRESSION: 1. No CT evidence of acute cervical spine fracture or injury. 2. Mild to moderate degenerative spondylosis as discussed. 3. Irregular peribronchial consolidative opacities bilaterally within the imaged lung apices, consistent with bilateral pneumonia. Refer to the dedicated chest CT performed concurrently. Electronically signed by: Larry Genao MD 11/29/2024 04:[address] chest w IV con IMPRESSION: 1. Multifocal pneumonia, most confluent in the upper lobes, lingula, and superior segments of the lower lobes. There is associated diffuse thickening of the small airways with foci of endobronchial mucous plugging. 2. No effusions. No pneumothorax. 3. Right dorsal calcified pleural plaque. 4. Mild cardiomegaly. Enlarged main pulmonary artery suggests pulmonary hypertension. Electronically signed by: Larry Genao MD 11/29/2024 04:[address] abdomen pelvis w IV con IMPRESSION: 1. Motion degraded exam. No acute findings in the abdomen or pelvis. 2. See the body of the report for ancillary findings. Electronically signed by: Larry Genao MD 11/29/2024 04:34 PM EDT Critical Care Time Critical Care Time Critical Care Time: Yes Total Critical Care Time: 120 Attestation: Critical Care: The patient was critically ill with a high probability of imminent or life threatening deterioration. I spent greater than 30 minutes of discontinuous time evaluating the patient,delivering critical care at the bedside, discussing and evaluating pertinent data with consultants. Critical care time does not include time spent performing separately billable procedures or teaching. Total time spent performing critical care was 120 minutes. Discharge Plan Discharge Clinical Impression: Pneumonia, Acute alteration in mental status, Atrial fibrillation with rapid ventricular response Patient Disposition: Admitted As Inpatient Prescriptions: No Action [place] Ellipta 100-62.5-25 mcg blister with device 1 ea inhalation DAILY Qty: 180 2RF albuterol sulfate 90 mcg/actuation HFA aerosol inhaler 2 puff INHALATION Q4H PRN (Reason: Shortness Of Breath Or Wheezing) Qty: 1 6RF ipratropium-albuterol 0.5 mg-3 mg(2.5 mg base)/3 mL solution for nebulization 3 ml inhalation QID PRN (Reason: dyspnea) Qty: 180 6RF multivitamin Tablet 1 tab PO DAILY cholecalciferol (vitamin D3) 25 mcg (1,000 unit) Tablet 25 mcg PO DAILY prednisone 10 mg tablet 10 mg PO DAILY Rx Instructions: see taper instructions metoprolol tartrate 50 mg tablet 50 mg PO BID fentanyl 100 mcg/hr patch 72 hour 1 patch topical Q3D@1800 Qty: 1 0RF oxycodone 5 mg tablet 5 mg PO Q8H PRN (Reason: Pain) Qty: 10 0RF Rx Instructions: Partial Fill upon patient request. triamcinolone acetonide 0.1 % cream 1 appl topical DAILY PRN (Reason: Rash) pregabalin 75 mg capsule 75 mg PO DAILY Vyzulta 0.024 % drops 1 drp ophthalmic (eye) BEDTIME Rx Instructions: both eyes Vitamin B-6 50 mg Capsule 50 mg PO DAILY Eliquis 5 mg Tablet 5 mg PO BID Qty: 60 0RF atorvastatin 10 mg tablet 10 mg PO DAILY Print Language: Vietnamese
[2024-11-29] MEDS: levalbuterol HCL 1.25 MG/3 ML VIAL.NEB 3.75 MG INHALE (13:14)
--- NOTE | 2024-11-29 13:15 | ECG_ITS ---
Test Reason : SEPSIS Blood Pressure : */* mmHG Vent. Rate : 127 BPM Atrial Rate : * BPM P-R Int : * ms QRS Dur : 76 ms QT Int : 370 ms P-R-T Axes : * 3 60 degrees QTcB Int : 537 ms Sinus tachycardia with PACS Septal infarct , age undetermined Abnormal ECG When compared with ECG of 29-Mar-2024 13:30, Septal infarct is now Present Nonspecific T wave abnormality, improved in Inferior leads Sinus rhythm has replaced SVT Referred By: Jean-Paul King Electronically Signed By: Wood Steel
[2024-11-29] MEDS: LACTATED RINGERS 2121 ML IV (13:28)
[2024-11-29 13:32] LABS: MANUAL DIFF FLAG NO
[2024-11-29 13:33] LABS: Basophils Absolute Auto 0.1 X10*3/uL (0.0-0.2); Basophils Percent Auto 0.3 % (0-2); Eosinophils Percent Auto 0.1 % (0-4); Hematocrit 30.2 % (42.0-52.0); Hemoglobin 10.6 g/dl (14.0-18.0); Imm Gran Abs Auto 0.15 X10*3/uL (0.00-0.03); Imm Gran Pct Auto 0.8 % (0.0-0.4); Lymphocytes Percent Auto 5.2 % (20-40); Mean Corpuscular HGB Conc 35.1 g/dl (31.0-36.0); Mean Corpuscular Hemoglobin 36.8 pg (27.0-33.0); Mean Corpuscular Volume 104.9 fL (80.0-98.0); Mean Platelet Volume 10.5 fL (9.4-12.4); Monocytes Absolute Auto 1.1 X10*3/uL (0.1-1.2); NRBC Pct Auto 0.1 /100WBC (0.0-0.2); Neutrophils Absolute Auto 16.2 x10*3/uL (2.0-8.3); Neutrophils Percent Auto 87.6 % (45-73); Platelet Count 182 X10*3/uL (160-400); Red Blood Count 2.88 X10*6/uL (4.60-5.80); Red Cell Distribution Width 16.4 % (11.0-16.0); White Blood Count 18.5 X10*3/uL (4.8-10.8)
[2024-11-29 13:37] LABS: Glucose, Whole Blood 147 mg/dL (60-115)
[2024-11-29 13:39] LABS: INTERNATIONAL NORM RATIO 1.2 (0.9-1.1); Prothrombin Time 13.6 SEC (10.9-12.4)
[2024-11-29] MEDS: Acetaminophen Supp 650 MG SUPP.RECT PR ×2 (13:41→19:29)
[2024-11-29 13:42] LABS: Partial Thromboplastin Time 29.2 SEC (26.0-36.8)
[2024-11-29] MEDS: Piperacillin Sodium/Tazobactam 4.5 GM in 0.9 % Sodium Chloride 100 ML IV (13:43)
[2024-11-29 13:49] LABS: Lactic Acid 1.3 mmol/L (0.5-2.0)
[2024-11-29 13:51] LABS: Alanine Aminotransferase 23 U/L (0-40); Albumin Level 3.6 g/dL (3.5-5.0); Anion Gap 16 (12-20); Aspartate Amino Transferase 33 U/L (5-37); Beta-Hydroxybutyrate 1.82 mmol/L (0.02-0.27); Bilirubin Total 1.4 mg/dL (0.0-1.0); Blood Urea Nitrogen 13 mg/dL (9-16); Calcium 8.8 mg/dL (8.4-10.2); Carbon Dioxide 28 mmol/L (22-29); Chloride 99 mmol/L (96-108); Creatinine Clr Calc Pharmacy 69.1; Estimated Glomerular Filt Rate > 60; Ethanol < 10 mg/dL; Glucose Random 145 mg/dL (60-115); Lipase < 4 U/L (8-78); Magnesium 1.8 mg/dL (1.6-2.6); Potassium 4.4 mmol/L (3.3-5.1); Sodium 139 mmol/L (135-145); Total Protein 6.7 g/dL (6.5-8.0)
[2024-11-29 13:52] LABS: B Type Natriuretic Peptide 964 pg/mL (<100)
[2024-11-29 14:06] LABS: Venous Blood Gas Refer to POC result
[2024-11-29 14:06] LABS: VBG Base Excess 6.9 mmol/L; VBG HCO3 32 mmol/L (22-26); VBG pCO2 48 mmHg; VBG pH 7.42 (7.32-7.43); VBG pO2 39 mmHg
[2024-11-29 14:10] LABS: Appearance Urine Clear; Color Urine Dark Yellow; Glucose Urine UA Negative (Negative); Leukocyte Esterase Urine Negative (Negative); Nitrite Urine Negative (Negative); Specific Gravity - Urine >= 1.030 (1.005-1.025); UMIC TRIGGER UACC YES; Urine Blood Moderate (2+) (Negative); Urine Ketones >=160 mg/dL (Negative); Urine Protein 300 (3+) mg/dL (Neg-Trace)
[2024-11-29 14:12] LABS: TSH reflex Free T4 1.34 uIU/mL (0.32-4.0)
[2024-11-29 14:21] LABS: Amphetamine Screen Urine Not Detected (Not Detect); Barbiturates, Urine Not Detected (Not Detect); Benzodiazepines Screen Urine Not Detected (Not Detect); Buprenorphine Scr Not Detected (Not Detect); Cannabinoid Screen Urine Not Detected (Not Detect); Cocaine Screen Urine Not Detected (Not Detect); Fentanyl, urine POSITIVE (Not Detect); Methadone Screen, Urine Not Detected (Not Detect); Opiate Screen Urine POSITIVE (Not Detect); Oxycodone Screen Urine Positive (Not Detect); Phencyclidine Screen Urine Not Detected (Not Detect)
[2024-11-29 14:22] LABS: Bacteria Urine None Seen (None Seen); Granular Casts Urine Present; Squamous Epithelial Cell Urine 0-2 /HPF (0-2); WBC Urine 0-5 /HPF (0-5)
[2024-11-29 14:23] LABS: Influenza A PCR NEGATIVE (Negative); Influenza B PCR NEGATIVE (Negative); Resp Syncy Virus RNA Qual PCR NEGATIVE (Negative); SARS COV2 PCR INHOUSE NEGATIVE (Negative)
[2024-11-29] MEDS: Midazolam HCl 2 MG/2 ML VIAL 4 MG IVPUSH (14:28)
[2024-11-29 14:29] LABS: Alkaline Phosphatase 60 U/L (39-117)
[2024-11-29] MEDS: levalbuterol HCL 5 MG, Ipratropium Bromide 0.5 MG INHALE (14:58)
--- NOTE | 2024-11-29 15:15 | PC.NURSE ---
pt is responsive to painful stimuli. he is alert but not talking. pupils reactive. 2x 100mcg fentanyl patches found on pt and removed per MD. chris inserted, clear medium yellow urine draining. 200ml output directly after.
[2024-11-29] MEDS: Thiamine HCL 400 MG in 0.9 % Sodium Chloride 100 ML 208 MG IV (15:48)
[2024-11-29] MEDS: iohexoL 350 MG/ML 100 ML INFUS..BTL 85 ML IV (15:54)
[2024-11-29] MEDS: Folic Acid 1 MG in 0.9 % Sodium Chloride 50 ML 100.4 MG IV (15:59)
[2024-11-29 16:12] LABS: Bilirubin Direct 0.5 mg/dL (0.0-0.5)
[2024-11-29 16:40] LABS: Troponin-I High Sensitivity 161.1 ng/L (<3.5-35.0)
--- OUTSIDE RECORDS SUMMARY | 2024-11-29 16:52 | XMS_ITS ---
Author Organization Salbador Ybarra III, MD Address [address] [place] [address] Care Team Providers Care Carry Out Clerk Name Role Phone Nikita Rivera MD Primary Care Provider Unavailab Salbador Fuentes Unavailable [phone] Allergies Allergen (clinical drug ingredient) Drug/Non Drug [...] smoker Encounters Encounter Location Date Provider Diagnosis Slabador Ybarra III, MD [address] [place] [address] [place] [address] 04/09/2024 Salbador Ybarra Myelodysplastic syndrome, unspecified D46.9 [...] TWICE A DAY Oral Progress Notes * Jodry MCCLELLANDDOB:1944 (79 yo M)Acc No.[id number]:04/09/2024 Progress Notes Patient:?Jordy MCCLELLAND Provider:?Salbador Ybarra MD :1945???Age:78 Y???Sex:Male Refugio e:04/09/2024 Address:[address] [place] [address] [id number] Pcp:Nikita Rivera MD Subjective: * Chief Complaints: [...] Tobacco Non-User?Ex-cigarette smoker ???He was born in [place], [place]. 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 He has 2 children and [...] Provider:?Salbador Ybarra MD Date:?03/25 Generated for Balaji cano/Josh/Geovannasmitting on:?11/29/2024 04:52 PM EDT History and Physical Notes * HPI (History of Present Illness) Category Sub-Category Detail Notes COVID-19 Screening Questions Have you had any new onset fever, chills, cough, congestion, sore throat, shortness of breath, muscle aches?: No Have you been exposed to the virus withi n the last 10 days?: No Have you travelled internationally in [facility] last 10 days?: No Have [...]
--- OUTSIDE RECORDS SUMMARY | 2024-11-29 16:52 | XMS_ITS ---
Author Organization Salbador Ybarra III, MD Address [address] [place] [address] [place] [address] Care Team Providers Care Product Lead Name Role Phone Nikita Rivera MD Primary Care Provider Unavailab Salbador Fuentes Unavailable [phone] REASON FOR VISIT Refills Medications Medication SIG (Take, Route, Fr equency, Duration) Notes Start Date End Date Status Vitamin B-6 50 MG TAKE ONE TABLET BY M OUTH EVERY DAY Orally once a day for 90 days Ac tive Social History Sex Assigned At : Social History Observation Description Sex Assigned At Male Encounters Encounter Location Date Provider Diagnosis Salbador Ybarra III, MD [address] [place] [address] [place] [address] 08/02/2024 Salbador Ybarra Myelodysplastic syndrome, unspecified D46.9 [...] Notes * Jordy MCCLELLANDDOB:1944 (79 yo M)Acc No.[id number]:08/02/2024 Patient:?Jordy MCCLELLAND :1945???Age:79 Y???Sex:Male Address:[address] [place] [address] * Refills? Refill Vitamin B-6 Tablet, 50 MG, Orally, 90, TAKE ONE TABLET BY MOUTH EVERY DAY, once a day, 90 days, Refills=9 * true * Date:? Generated for Balaji cano/Josh/eTransmitting on:?11/29/2024 04:52 PM EDT
--- OUTSIDE RECORDS SUMMARY | 2024-11-29 16:52 | XMS_ITS | Patient Health Record ---
Author Organization Salbador Ybarra III, MD Address [address] [place] [address] Care Team Providers Care Software Licensing Specialist Name Role Phone Nikita Rivera MD Primary Care Provider Unavail Salbador Fuentes Unavailable [phone] Allergies Allergen (clinical drug ingredient) Drug/Non Drug Allergy documented on EMR Reaction Allergy Type Onset Date Status No Known Drug Allergy Unknown Drug Allergy Active Results Component Value Reference Range Notes Complete Blood Count Auto Di ff Reviewed date:02/03/2024 04:59:35 PM Interpretation: Performing Lab:[facility], [address] [place] [phone] Notes/Report: White Blood Count 4.9 4.8-10.8 X10*3/uL [...] RETIC Reviewed date:02/03/2024 04:59:35 PM Interpretation: Performing Lab:[facility], [address] [place] [phone] Notes/Report: Reticulocytes Absolute 0.118 0.026-0.095 X10*6/ uL Immature Retic Fraction 31.8 2.3-13.4 % Retic HGB Equivalent 32.6 30.0-35.0 pg Reticulocyte Percent 4.2 0.5-1.8 % Comprehensive Met. Panel Reviewed date:02/03/2024 04:59:35 PM Interpretation: Performing Lab:[facility], [address] [place] [phone] Notes/Report: Sodium 145 135-145 mmol/L Potassium 4.7 3.3-5.1 mmol/L Chloride 106 96-108 mmol/L Carbon Dioxide 31 22-29 mmol/L Anion Gap 13 12-20 Blood Urea Nitrogen 17 9-16 mg/dL Creatinine 0.83 0.5-1.4 mg/dL Estimated Glomerular Filt Rate > 60 NOTE: For -[place] individuals, multiply the result by 1.210. Chronic [...] Problem Status W/U Status Risk Notes Problem 3941918 Former smoker (Z87.891) Active confirmed He is not smoking now and seems motivated to remain abstinent. We discussed a strategy to prevent relapse in the future. Problem 001786494 Overweight (E66.3) Active confirmed His body mass index is 28. He has lost 8 pounds. We reviewed his weight loss strategy. He will continue to lose weight at a rate of one half of a pound per week. Problem Myelodysplastic syndrome (814129133) Myelodysplastic syndrome, unspecified (D46.9) Active confirmed His mean cell volume Is slowly increasing. No change in his blood work has been noted. Current therapy was continued. The vitamin B12 and folic acid levels are normal. Problem Chronic obstructive pulmonary disease (81512865) Chronic obstructive pulmonary disease, unspecified (J44.9) Active confirmed His COPD is stable and he is not wheezing at this time. He says he is not smoking. He denies any coughing or wheezing and shortness of breath is only with prolonged exertion. Problem Osteoarthritis (399986583) Polyosteoarthriti s, unspecified (M15.9) Active confirmed He has been continued on his chronic pain regimen by his primary care physician. Problem 70113238 Idiopathic peripheral neuropathy (G60.9) Active confirmed Problem 45571077 Atrial fibrillation, unspecified type (I48.91) Active confirmed Problem 698630477 Stage 2 chronic kidney disease (N18.2) Active [...] Date Provider Diagnosis Salbador Ybarra III, MD [address] [place] [address] [place] [address] 02/06/2024 Salbador Ybarra Myelodysplastic syndrome, unspecified D46.9 ; Overweight E66.3 ; Chronic obstructive pulmonary disease, unspecified J44.9 ; Polyosteoarthritis, unspecified M15.9 ; Former smoker Z87.891 ; Idiopathic peripheral neuropathy G60.9 and Atrial fibrillation, unspecified type I48.91 Salbador Ybarra III, MD [address] [place] [address] [place] [address] 01/13/2024 Salbador Ybarra Myelodysplastic syndrome, unspecified D46.9 Salbador Ybarra III, MD [address] [place] [address] [address] [place] [address] 04/08/2024 Salbador Ybarra III, MD [address] [place] [address] [address] [place], [place] [address] 08/02/2024 Salbador Ybarra Myelodysplastic syndrome, unspecified D46.9 Assessments Encounter Date Diagnosis (ICD Code) Assessment Notes Treat ment Notes Treatment Clinical Notes 02/06/2024 Overweight (ICD-10 - E66.3) His body [...] immunization 06/12/2018 PROFILE, RANDOM (COMPREHENSIVE METABOLIC ) 09/05/2021 PROFILE, RANDOM (COMPREHENSIVE METABOLIC ) 07/14/2019 PROFILE, RANDOM (COMPREHENSIVE METABOLIC ) 09/14/2018 PROFILE, RANDOM (COMPREHENSIVE METABOLIC ) 06/12/2018 PROFILE, RANDOM (COMPREHENSIVE METABOLIC ) 09/06/2022 PROFILE, RANDOM (COMPREHENSIVE METABOLIC ) 09/11/2023 PROFILE, RANDOM (COMPREHENSIVE METABOLIC ) 03/06/2022 PROFILE, RANDOM (COMPREHENSIVE METABOLIC ) 01/12/2020 PROFILE, RANDOM (COMPREHENSIVE METABOLIC ) 05/12/2023 PROFILE, RANDOM (COMPREHENSIVE METABOLIC ) 01/11/2019 PROFILE, RANDOM (COMPREHENSIVE METABOLIC ) 01/06/2023 FERRITIN 06/12/2018 FERRITIN 05/12/2023 B12 03/06/2022 FOLATE 01/06/2023 CBC w DIFF 05/12/2023 CBC w DIFF 09/05/2021 CBC w DIFF 07/14/2019 CBC w DIFF 01/06/2023 CBC w DIFF 09/14/2018 CBC w DIFF 09/06/2022 CBC w DIFF 06/12/2018 CBC w DIFF 01/12/2020 CBC w DIFF 01/11/2019 CBC w DIFF 03/06/2022 RETICULOCYTE COUNT,CORRECTED 09/05/2021 RETICULOCYTE COUNT,CORRECTED 07/14/2019 RETICULOCYTE COUNT,CORRECTED 09/14/2018 RETICULOCYTE COUNT,CORRECTED 06/12/2018 CBC WITH AUTO DIFF 09/11/2023 CBC WITH AUTO DIFF 02/06/2024 RETIC 05/12/2023 RETIC 09/06/2022 RETIC 09/11/2023 Vitamin B12 01/06/2023 Folate 03/06/2022 Insurance Providers Payer Name Payer Address Payer Phone Subscriber Number Group Number Insured Name Patient Relationship to Insured Coverage Start Date Coverage End Date MEDICARE NGS [address] [place] [address] [id number] Jordy Trent Self - patient is the insured [place] [address] [place], [place] [id number] [phone] [id number] Jordy Trent Self - patient is the insured Medical (General) History Medical History History ICD Code Bilateral rotator cuff surgery COPD Refractory Anemia with ringed sideroblas ts/ Myelodydplastic syndrome diverticulitis on December 18, 2001. Osteoarthitis with chronic back pain peripheral neuropathy Surgical History Surgery Date(Month/Year) bowel resection for diverticulitis 2001
--- OUTSIDE RECORDS SUMMARY | 2024-11-29 16:52 | XMS_ITS ---
Author Organization Salbador Ybarra III, MD Address [address] [place] [address] [place] [address] Care Team Providers Care Senior Datastage Developer Name Role Phone Nikita Rivera MD Primary Care Provider Unavailab Salbador Fuentes Unavailable [phone] REASON FOR VISIT Message Social History Sex Assigned At : Social History Observation Description Sex Assigned At Male Encounters Encounter Location Date Provider Diagnosis Salbador Ybarra III, MD [address] [place] [address] [place] [address] 04/08/2024 Salbador Ybarra Plan Of Treatment No Information Progress Notes * Jordy MCCLELLANDDOB:1944 (78 yo M)Acc No.[id number]:04/08/2024 Patient:?Jordy Mcclelland :1945???Age:78 Y???Sex:Male Address:[address] [place] [address] * true * Date:? Generated for Printi rachael/Viping/eTransmitting on:?11/29/2024 04:52 PM EDT
--- OUTSIDE RECORDS SUMMARY | 2024-11-29 16:52 | XMS_ITS | Clinical Summary ---
Author Organization [facility] Address [address] [place] [address] Care Team Providers Care Skein Bleacher Name Role Phone Nikita Rivera MD Primary Care Provider [phone] Allergies No known active allergies Medications Medication Sig Dispensed Refills Start Date End Date Status albuterol (PROAIR RESPICLICK) 108 (90 Base) MCG/ACT inhaler Inhale 2 puffs every 4 (four) hours as needed for wheezing or shortness of breath. Active apixaban (ELIQUIS) 5 MG tablet Take 1 tablet (5 mg total) by mouth 2 (two) times a day. Active cholecalciferol (CHOLECALCIFEROL) 25 MCG (1000 UT) tablet Take 1 tablet (1,000 Units total) by mouth daily. Active fentaNYL (DURAGESIC) 100 mcg/hr patch Place 1 patch on the skin every third day (72 hrs). Max Daily Amount: 1 patch Active fluticasone-umeclidi nium-vilanterol (Trelegy Ellipta) 100-62.5-25 mcg/act inhaler Inhale 1 puff daily. Acti ve ipratropium-albutero l (DUONEB) 0.5-2.5 mg/3 mL nebulizer solution Take 3 mL by nebulization 4 times daily (every 6 hours) as needed for wheezing or shortness of breath. Active latanoprostene (VYZULTA) 0.024 % ophthalmic solution Administer 1 drop to both eyes nightly. Active metoPROLOL TARTRATE (LOPRESSOR) 50 MG tablet Take 1 tablet (50 mg total) by mouth 2 (two) times a day. Active pregabalin (LYRICA) 75 MG capsule Take 1 capsule (75 mg total) by mouth daily. Active pyridoxine (VITAMIN B-6) 50 mg tablet Take 1 tablet (50 mg total) by mouth daily. Active multivitamin Tab tablet Take 1 tablet by mouth daily. Active senna (SENOKOT) 8.6 MG Tab tablet Take 2 tablets by mouth daily. Active buPROPion (WELLBUTRIN SR) 150 MG 12 hr tablet Take 1 tablet (150 mg total) by mouth. 03/07/2024 Active Lipitor 10 MG tablet Take 1 tablet (10 mg total) by mouth. 04/03/2024 Active oxyCODONE (ROXICODONE) 10 mg immediate release tabletIndications:Ch ronic Pain Take 1 tablet (10 mg total) by mouth every 4 (four) hours as needed for severe pain or moderate pain. Max Daily Amount: 60 mg 04/19/2024 Active predniSONE (DELTASONE) 10 MG tabletIndications:Ch ronic obstructive pulmonary disease, unspecified COPD type (HCC) Take 1 tablet (10 mg total) by mouth every morning with breakfast. With food. Do not start before May 03, 2024. 05/03/2024 Active acetaminophen (TYLENOL) 325 MG tabletIndications:Sp ontaneous pneumothorax Take 3 tablets (975 mg total) by mouth every 8 (eight) hours around the clock. 04/19/2024 Active docusate sodium (COLACE) 100 MG capsuleIndications:S pontaneous pneumothorax,Acute and chronic respiratory failure with hypoxia (HCC) Take 1 capsule (100 mg total) by mouth 2 (two) times a day. 05/17/2024 Active polyethylene glycol (miraLAx) 17 g packetIndications:Sp ontaneous pneumothorax,Acute and chronic respiratory failure with hypoxia (HCC) Take 1 packet (17 g total) by mouth daily. 05/18/2024 Active diltiazem (CARDIZEM CD) 240 MG 24 hr capsuleIndications:P aroxysmal atrial fibrillation (HCC) Take 1 capsule (240 mg total) by mouth daily. 05/18/2024 Active Active Problems Problem Noted Date Diagnosed Date Chronic respiratory failure with hypoxia 024 MDS (myelodysplastic syndrome) 05/17/2024 Peripheral neuropathy 05/17/2024 Bacteremia due to Klebsiella pneumoniae 05/08/20 24 Acute cystitis without hematuria 05/08/2024 Recurrent pneumothorax 05/07/2024 Spontaneous pneumothorax 04/09/2024 Acute and chronic respiratory failure with hypox ia 04/03/2024 Chronic obstructive pulmonary disease, unspecifi ed 04/03/2024 Paroxysmal atrial fibrillation 04/03/2024 Social History Tobacco Use Types Packs/Day Years Used Date Smoking Tobacco: Former Cigarettes Smokeless Tobacco: Former Tobacco Cessation:Counseling Given: Not Answered [facility] Utilities Answer Date Recorded In the past 12 months has th e electric, gas, oil, or water company threatened to shut off services in your home? No 05/11/2024 AUDIT-C Answer Date Recorded Q1: How often do you have a drink containing alcohol? Never 05/08/2024 Q2: How many drinks containi ng alcohol do you have on a typical day when you are drinking? Patient does not drink Q3: How often do you have si x or more drinks on one occasion? Never 05/08/2024 Overall Financial Resource Strain (CARDIA) Answe r Date Recorded How hard is it for you to pa y for the very basics like food, housing, medical care, and heating? Not hard at all 05/11/2024 Hunger Vital Sign Answer Date Recorded Within the past 12 months, y ou worried that your food would run out before you got the money to buy more. Never true 05/11/20 24 Within the past 12 months, t he food you bought just didn't last and you didn't have money to get more. Never true 05/11/2024 PRAPARE - Transportation Answer Date Re corded In the past 12 months, has l ack of transportation kept you from medical appointments or from getting medications? No 04/25 In the past 12 months, has l ack of transportation kept you from meetings, work, or from getting things needed for daily living? No 05/11/2024 Housing Stability Vital Sign Answer Refugio e Recorded In the last 12 months, was t here a time when you were not able to pay the mortgage or rent on time? No 05/11/2024 In the last 12 months, how many places have you lived? 1 05/11/2024 In the last 12 months, was t here a time when you did not have a steady place to sleep or slept in a custodial (including now)? No 05/11/2024 Sex and Gender Information Value Date Recorded Sex Assigned at Male 04/08/2024 11:02 PM EDT Gender Identity Male 04/08/2024 11:02 PM EDT Sexual Orientation Heterosexual (straight) 04/08 11:02 PM EDT Last Filed Vital Signs Vital Sign Reading Time Taken Comments Blood Pressure 102/59 05/17/2024 11:41 AM EDT Pulse 52 05/17/2024 11:41 AM EDT Temperature 36.5 ??C (97.7 ??F) 05/17/2024 11:41 AM E DT Respiratory Rate 18 05/17/2024 11:41 AM EDT Oxygen Saturation 95% 05/17/2024 11:41 AM EDT Inhaled Oxygen Concentration - - Weight 87.5 kg (193 lb) 05/07/2024 11:00 PM EDT Height 182.9 cm (6') 05/07/2024 11:00 PM EDT Body Mass Index 26.18 05/07/2024 11:00 PM EDT Plan of Treatment Health Maintenance Due Date Last Done Comments Hepatitis C Virus Screening 1945 COVID-19 Vaccine (#1) 1952 DTaP/Tdap/Td Vaccines (1 - Tdap) 1966 Pneumococcal Vaccines 50+ (1 of 2 - PCV) 1966 Zoster (Shingles) Vaccine (1 of 2) 1966 RSV Vaccine 60 years and old er and Patients (1 - 1-dose 75+ series) 2022 Influenza Vaccine Completed 06/14/2024 Hepatitis B Vaccines Aged Out No long er eligible based on patient's age to complete this topic Advance Directives * Full Code (Latest Code Status on File) Date Activated Date Inactivated Comments 05/07/2024 11:52 PM * Full Code Date Activated Date Inactivated Comments 04/09/2024 2:40 AM 05/07/2024 11:00 PM Question Answer Comments Decision Thoroughly Discussed with: Patient Care Teams Skein Bleacher Relationship Specialty Start Date End Date Nikita Rivera MD [address] [place] [address] [place] [address] PCP - General Internal Medicine 05/11/24
--- OUTSIDE RECORDS SUMMARY | 2024-11-29 16:52 | XMS_ITS | Encounter Summary ---
Author Organization [facility] Address [address] [place] [address] Care Team Providers Care Bar Machine Operator Multiple Spindle Name Role Phone Nikita Rivera MD Primary Care Provider [phone] Encounter Details Date Type Department Care Team (Late st Contact Info) Description 06/28/2024 Scanned Document [facility] Thoracic Surgery [place] [address] [place] [address] Quyen Barajas PA-C [address] [place], [place] [id number] Social History Tobacco Use Types Packs/Day Years Used Date Smoking Tobacco: Former Cigarettes Smokeless Tobacco: Former [facility] Utilities Answer Date Recorded In the past 12 months has e electric, gas, oil, or water company [...] No 05/11/2024 Housing Stability Vital Sign Answer Refugoi e Recorded In the last 12 months, [...] place to sleep or slept in a long-term (including now)? No 05/11/2024 Sex and Gender Information Value Date Recorded Sex Assigned at Male 04/08/2024 11:02 PM EDT Gender Identity Male 04/08/2024 11:02 PM EDT Sexual Orientation Heterosexual (straight) 04/08 11:02 PM EDT documented as of this encounter Plan of Treatment Not on file documented as of this encounter Visit Diagnoses Not on filedocumented in this encounter Care Teams Bar Machine Operator Multiple Spindle Relationship Specialty Start Date End Date Nikita Rivera MD [address] [place] [address] [address] [place], [place] [address] PCP - General Internal Medicine 05/11/24 documented as of this encounter
[2024-11-29 16:59] LABS: Folate 15.1 ng/mL (> or = 4.0); Vitamin B12 1002 pg/mL (200-900)
--- NOTE | 2024-11-29 19:00 | PHA.MEDREC ---
Addendum entered by Temo Salinas [facility] 11/30/24 15:24: Med rec reviewed Addendum entered by Kristal Zendejas 11/30/24 15:15: Following up from yesterday. Spoke to Barber to confirm med list , however he didn't know what medications patient takes. He instructed me to Dr Rivera Office. Called and spoke to Dr. Rivera office to confirm med list , how ever they stated that Dr Montalvo is patients hospice care [facility] [phone]. [phone]. Utilized list fro DR Montalvo office to confirm med list. Addendum entered by Susie Munoz, [facility] 11/29/24 19:24: Med rec not completed will need to get further information from friend or speak to patient again when alert Original Note: Pharmacy Consult ? Medication Reconciliation Pharmacy attempted to completed the medication reconciliation. Went to speak with patient and patient was not responding when I went into his room. I called patients contact and friend Barber ([phone]) and he was not very helpful at this time. He stated he lives in [place] and the patient lives in [place] and if we called back tomorrow morning @0930, he should be at the patients house at that time. I confirmed what I could utilizing claims and we will have the Am team follow up with Barber in the morning.
--- NOTE | 2024-11-29 21:51 | P.HPHOSP_ITS ---
History of Present Illness Date of Service: 11/29/24 Attending physician on admission: Lukas Onofre Chief Complaint: unresponsive Patient is a 79-year-old male with a past medical history significant for spontaneous pneumothorax, COPD on oxygen ?4L, HLD, BPH, chronic back pain on fentanyl patch and liquid morphine, arthritis and history of substance use disorder (cocaine use), who arrived to the ED via EMS from home after being found unresponsive by friends. They did report altered mental status for the past 2 days. He was only responsive to painful stimuli, pupils are reactive. EMS did find a bottle of lorazepam slowly empty, prescribed 2 weeks ago with 84 tablets (rx'd for dyspnea Q4H, therefore, rx would be gone if taken Q4H). The patient did also have 2 fentanyl patches on bilateral thighs. History was unable to be obtained as the patient is unresponsive aside from with painful stimuli and will state his name. workup in the ED was conclusive for elevated WBC at 18.5, BNP elevated at 964 without any findings of pulmonary edema or lower extremity edema. Labs also consistent with chronic macrocytic anemia. TSH and lactic acid normal. UA negative for infection however with microscopic hematuria. Troponin elevated at 128, 161 on repeat however EKG without any signs of infarction. EKG with sinus tachycardia. CT head, neck and abdomen negative. Chest CT with multifocal pneumonia. Patient meets sepsis criteria and was given a fluid bolus and started on Zosyn. BP has been stable. The patient is still unresponsive therefore unable to provide history at this time. Oxygen saturations have been within normal limits on 2 L of oxygen. Beta hydroxybutyrate was elevated at 1.82, no history of diabetes and blood glucose within normal limits. Review of Systems 2 Review of Systems: Yes Unobtainable due to mental condition [facility] Medical History (Updated 11/29/24 @ 22:11 by Dianna Tariq PA-C) Chronic back pain HLD (hyperlipidemia) Osteoarthritis BPH (benign prostatic hyperplasia) Skin lesion of back Chronic obstructive pulmonary disease, unspecified Diverticulosis of large intestine without perforation or abscess without bleeding 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 Family History Mother Hypertension Father Hypertension Surgical History History of excision of lesion (~04/17/23) History of repair of rotator cuff History of colon resection (~2001) Social History Household Members: None Housing: House Do you presently have visiting nurse or other home services: Yes Unable to assess alcohol history related to: Unable to respond Alcohol intake: never Comment: pt refusing alarms Patient Tobacco Use Status: Former Tobacco user Tobacco use type: Cigarette Use of substances other than those prescribed or required for medical reasons: Unable to respond Advance Directives: Yes Advance Directives on File: Yes Advance Directives Date on File: 03/29/24 service: No Current occupational status: employed and retired 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 /[employer] Meds Allergies Allergy/AdvReac Type Severity Reaction Status Date / Time No Known Allergies Allergy Mild NONE Verified 11/29/24 13:14 Active Medications: Current Medications Calcium Carbonate (Calcium Carbonate 750 Mg Tab.Chew) 750 mg PO Q4H PRN PRN Reason: Heartburn Levalbuterol HCl 1.25 mg/ (Ipratropium [place] 0.5 mg) 0 mg INHALE RQ4H WHILE AWAKE ANAID Enoxaparin Sodium (Enoxaparin Sodium 40 Mg/0.4 Ml Syringe) 40 mg SUBCUT Q24H ANAID Lactated Ringer's (Lr) 1,000 mls @ 50 mls/hr IVCONT .Q20H ANAID Acetaminophen (Ofirmev) 1,000 mg in 100 mls @ 400 mls/hr IV Q6H ANAID Ampicillin Sodium/Sulbactam (Sodium 1.5 gm/ Sodium Chloride) 100 mls @ 200 mls/hr IV Q6H ANAID Magnesium Hydroxide (Milk Of Magnesia 30 Ml Oral.Susp) 30 ml PO DAILY PRN PRN Reason: Constipation Melatonin (Melatonin 3 Mg Tablet) 6 mg PO BEDTIME PRN PRN Reason: Insomnia Sodium Chloride (0.9 % Sodium Chloride Flush 3 Ml Syringe) 3 ml IVFLUSH QSHIFT ANAID Home Medications ?Medication ?Instructions ?Recorded ?Confirmed ?Last Taken ?Type atorvastatin 10 mg tablet 10 mg PO DAILY 06/19/20 11/29/24 10/16/23 History cholecalciferol (vitamin D3) 25 25 mcg PO DAILY 10/17/23 03/28/24 10/16/23 History mcg (1,000 unit) tablet multivitamin 1 tab PO DAILY 10/17/23 03/28/24 10/16/23 History latanoprostene bunod 0.024 % eye 1 drp ophthalmic (eye) BEDTIME 01/07/24 11/29/24 Unknown History drops (Vyzulta) pregabalin 75 mg capsule 75 mg PO DAILY 01/07/24 11/29/24 Unknown History pyridoxine (vitamin B6) 50 mg 50 mg PO DAILY 01/07/24 03/28/24 Unknown History capsule (Vitamin B-6) triamcinolone acetonide 0.1 % 1 appl topical DAILY PRN Rash 01/07/24 03/28/24 Unknown History topical cream prednisone 10 mg tablet 10 mg PO DAILY 02/28/24 11/29/24 03/28/24 History metoprolol tartrate 50 mg tablet 50 mg PO BID 03/28/24 11/29/24 Unknown History dextromethorphan-guaifenesin 10 10 - 15 ml PO Q6H PRN cough 11/29/24 11/29/24 Unknown History mg-100 mg/5 mL oral syrup fentanyl 100 mcg/hr transdermal 1 patch topical Q3D pain 11/29/24 11/29/24 Unknown History patch fentanyl 12 mcg/hr transdermal 1 patch topical Q3D pain 11/29/24 11/29/24 Unknown History patch haloperidol 0.5 mg tablet 0.5 mg PO Q4H PRN 11/29/24 11/29/24 Unknown History NAUSEA/VOMITING/AGITATION hyoscyamine sulfate 0.125 mg 0.125 mg PO Q4H PRN Secretions 11/29/24 11/29/24 Unknown History sublingual tablet lorazepam 0.5 mg tablet 0.5 mg PO Q4H PRN dyspnea 11/29/24 11/29/24 Unknown History morphine concentrate 100 mg/5 mL 10 mg PO Q3-4H PRN dyspnea 11/29/24 11/29/24 Unknown History (20 mg/mL) oral solution oxycodone 10 mg tablet 10 mg PO Q4-6H PRN pain 11/29/24 11/29/24 Unknown History tobramycin 0.3 %-dexamethasone 0.1 1 drp ophthalmic (eye) 11/29/24 Unknown History % eye drops,suspension Physical Exam 2 Vital Signs and Narrative: Vital Signs: Last Vital Signs Temp 100.6 F H 11/29/24 21:47 Pulse 106 H 11/29/24 21:47 Resp 19 11/29/24 21:47 BP 114/58 L 11/29/24 21:47 Pulse Ox 93 11/29/24 21:47 O2 Del Method Room Air 11/29/24 21:47 O2 Flow Rate 2 11/29/24 19:54 Oxygen Flow Rate 4 11/29/24 13:09 BMI result Body Mass Index 33.0 General: opens eyes to auditory stimuli, oriented to person but not place or time, no acute distress Resp: rhonchi and diminished bilaterally throughout, no wheezing CVS: S1, S2, RRR GI: +BS, NT, no distention Skin: Warm, dry Neuro: PERRK. Motor grossly intact bilaterally Extremities: No LE edema Results Labs 11/29/24 13:25 11/29/24 13:25 Labs: Laboratory Results - last 24 hr 11/29/24 11/29/24 11/29/24 13:11 13:25 13:32 MCV 104.9 H MCH 36.8 H MCHC 35.1 RDW 16.4 H Plt Count 182 D MPV 10.5 Immature Gran % (Auto) 0.8 H Neut % (Auto) 87.6 H Lymph % (Auto) 5.2 L [place] % (Auto) 6.0 Eos % (Auto) 0.1 Baso % (Auto) 0.3 Lymph # (Auto) 1.0 L [place] # (Auto) 1.1 Eos # (Auto) 0.0 Baso # (Auto) 0.1 Abs Immat Gran (auto) 0.15 H Absolute Neuts (auto) 16.2 H Absolute Nucleated RBC 0.020 H Nucleated RBC % (auto) 0.1 PT 13.6 H INR 1.2 H APTT 29.2 VBG pH 7.42 VBG pCO2 48 VBG pO2 39 VBG HCO3 32 H VBG O2 Saturation 63.0 VBG Base Excess 6.9 Anion Gap 16 Estim Creat Clear Calc 69.1 Estimated GFR > 60 POC Glucose 147 H Random Glucose 145 H Lactic Acid 1.3 Calcium 8.8 Magnesium 1.8 Total Bilirubin 1.4 H Direct Bilirubin 0.5 AST 33 ALT 23 Alkaline Phosphatase 60 Total Creatine Kinase 367 H B-Natriuretic Peptide 964 H Total Protein 6.7 Albumin 3.6 Lipase < 4 L Vitamin B12 Folate Beta-Hydroxybutyrate 1.82 H TSH 1.34 Urine Color Urine Appearance Urine pH Ur Specific [place] Urine Protein Urine Glucose (UA) Urine Ketones Urine Blood Urine Nitrite Ur Leukocyte Esterase Urine RBC Urine WBC Ur Squamous Epith Cells Urine Bacteria Hyaline Casts Granular Casts Urine Opiates Screen Ur Buprenorphine Scrn Ur Oxycodone Screen Urine Methadone Screen Urine Fentanyl Screen Ur Barbiturates Screen Ur Phencyclidine Scrn Ur Amphetamines Screen U Benzodiazepines Scrn Urine Cocaine Screen U Marijuana (THC) Screen Ethyl Alcohol < 10 Influenza Type A (PCR) Influenza Type B (PCR) RSV RNA Qual (PCR) SARS-CoV-2 RNA (RT-PCR) 11/29/24 11/29/24 11/29/24 13:33 14:01 15:52 MCV MCH MCHC RDW Plt Count MPV Immature Gran % (Auto) Neut % (Auto) Lymph % (Auto) [place] % (Auto) Eos % (Auto) Baso % (Auto) Lymph # (Auto) [place] # (Auto) Eos # (Auto) Baso # (Auto) Abs Immat Gran (auto) Absolute Neuts (auto) Absolute Nucleated RBC Nucleated RBC % (auto) PT INR APTT VBG pH VBG pCO2 VBG pO2 VBG HCO3 VBG O2 Saturation VBG Base Excess Anion Gap Estim Creat Clear Calc Estimated GFR POC Glucose Random Glucose Lactic Acid Calcium Magnesium Total Bilirubin Direct Bilirubin AST ALT Alkaline Phosphatase Total Creatine Kinase B-Natriuretic Peptide Total Protein Albumin Lipase Vitamin B12 1002 H Folate 15.1 Beta-Hydroxybutyrate TSH Urine Color Dark Yellow Urine Appearance Clear Urine pH 6.0 Ur Specific [place] >= 1.030 H Urine Protein 300 (3+) H Urine Glucose (UA) Negative Urine Ketones >=160 Urine Blood Moderate (2+) H Urine Nitrite Negative Ur Leukocyte Esterase Negative Urine RBC 6-10 H Urine WBC 0-5 Ur Squamous Epith Cells 0-2 Urine Bacteria None Seen Hyaline Casts 6-10 Granular Casts Present Urine Opiates Screen POSITIVE H Ur Buprenorphine Scrn Not Detected Ur Oxycodone Screen Positive H Urine Methadone Screen Not Detected Urine Fentanyl Screen POSITIVE H Ur Barbiturates Screen Not Detected Ur Phencyclidine Scrn Not Detected Ur Amphetamines Screen Not Detected U Benzodiazepines Scrn Not Detected Urine Cocaine Screen Not Detected U Marijuana (THC) Screen Not Detected Ethyl Alcohol Influenza Type A (PCR) NEGATIVE Influenza Type B (PCR) NEGATIVE RSV RNA Qual (PCR) NEGATIVE SARS-CoV-2 RNA (RT-PCR) NEGATIVE Imaging Radiologist's Impressions: Impressions Abdomen/Pelvis CT 11/29/24 14:56 IMPRESSION: 1. Motion degraded exam. No acute findings in the abdomen or pelvis. 2. See the body of the report for ancillary findings. Electronically signed by: Larry Genao MD 11/29/2024 04:34 PM EDT RP Cervical Spine CT 11/29/24 14:56 IMPRESSION: 1. No CT evidence of acute cervical spine fracture or injury. 2. Mild to moderate degenerative spondylosis as discussed. 3. Irregular peribronchial consolidative opacities bilaterally within the imaged lung apices, consistent with bilateral pneumonia. Refer to the dedicated chest CT performed concurrently. Electronically signed by: Larry Genao MD 11/29/2024 04:18 PM EDT RP Chest CT 11/29/24 14:56 IMPRESSION: 1. Multifocal pneumonia, most confluent in the upper lobes, lingula, and superior segments of the lower lobes. There is associated diffuse thickening of the small airways with foci of endobronchial mucous plugging. 2. No effusions. No pneumothorax. 3. Right dorsal calcified pleural plaque. 4. Mild cardiomegaly. Enlarged main pulmonary artery suggests pulmonary hypertension. Electronically signed by: Larry Genao MD 11/29/2024 04:27 PM EDT RP Head CT 11/29/24 14:56 IMPRESSION: No acute intracranial abnormality. No fracture seen. Electronically signed by: Larry Genao MD 11/29/2024 04:12 PM EDT RP Assessment and Plan (1) Sepsis: Status: Acute (2) Acute and chronic respiratory failure: Status: Acute (3) Aspiration pneumonia: Status: Acute (4) Encephalopathy acute: Status: Acute (5) Elevated troponin: Status: Acute (6) Chronic anemia: Status: Acute (7) Microscopic hematuria: Status: Acute (8) Elevated beta-hydroxybutyrate: Status: Acute Plan Patient is a 79-year-old male with a past medical history significant for hx spontaneous pneumothorax, COPD on oxygen ?4L, HLD, BPH, chronic back pain on fentanyl patch and liquid morphine, arthritis and history of substance use disorder (cocaine use), who arrived to the ED via EMS from home after being found unresponsive by friends. workup in the ED was conclusive for elevated WBC at 18.5, BNP elevated at 964 without any findings of pulmonary edema or lower extremity edema. Labs also consistent with chronic macrocytic anemia. TSH and lactic acid normal. UA negative for infection however with microscopic hematuria. Troponin elevated at 128, 161 on repeat however EKG without any signs of infarction. EKG with sinus tachycardia. CT head, neck and abdomen negative. Chest CT with multifocal pneumonia. Patient meets sepsis criteria and was given a fluid bolus and started on Zosyn. BP has been stable. The patient is still unresponsive therefore unable to provide history at this time. Oxygen saturations have been within normal limits on 2 L of oxygen. Beta hydroxybutyrate was elevated at 1.82, no history of diabetes and blood glucose within normal limits. sepsis with acute on chronic respiratory failure secondary to suspected aspiration pneumonia - WBC 18.5, temp 101.6 on arrival, tachycardic and tachypneic, lactic acid normal, blood cultures x2 pending, not severe sepsis - chest CT with multifocal pneumonia - CT head, c-spine, and abd negative for acute findings - UA negative for infection, +microheme - BNP elevated at 964, no hx of CHF, no pulmonary or LE edema - started on zosyn in ED, switch to unasyn - given fluid bolus due to sepsis, continue LR 50cc/hr - monitor CBC and BMP metabolic vs toxic encephalopathy - etoh level normal - u tox + for opiates, oxycodone and fentanyl but pt is prescribed them - send out for urine lorazepam - pt found with 2 fentanyl patches on. removed in ED - TSH normal - hold pain medications until pt alert - CIWA elevated troponin - likely secondary to acute respiratory distress - no signs of infarction on EKG - continue to monitor on tele elevated BNP - no dx of CHF - no pulmonary or LE edema - echo chronic macrocytic anemia - H+H 10.6/30.2 - B12 and folate normal - given folic acid and thiamine in ED - monitor CBC microscopic hematuria - UA neg for infection - abd CT negative - f/u with PCP elevated beta hydroxybutyrate - glucose normal - check A1C full code VTE prophy: lovenox Pt with sepsis and acute on chronic respiratory failure secondary to aspiration pneumonia with metabolic versus toxic encephalopathy, requiring admission for at least 2 midnights stay for IV antibiotics, monitoring and further evaluation. Quality Stroke Does the patient have a stroke diagnosis?: No VTE Prior VTE?: No VTE Risk Level:: Medical - moderate - high VTE Device Contraindication: Treatment Not Indicated VTE Drug Contraindication: N/A - Med Ordered
[2024-11-29] MEDS: Ampicillin Sodium/Sulbactam Na 1.5 GM in 0.9 % Sodium Chloride 100 ML IV (22:04)
[2024-11-29] MEDS: Lactated Ringers 1,000 ML 50 ML IVCONT (22:04)
[2024-11-29] MEDS: Enoxaparin Sodium 40 MG/0.4 ML SYRINGE SUBCUT (22:04)
[2024-11-30] VITALS (14 sets, daily range): BP systolic 96–148; BP diastolic 47–67; PULSE 76–130; RESP 12–23; TEMP 36.4–38.1; O2SAT 79–100
--- NOTE | 2024-11-30 | ECG_ITS ---
Test Reason : TACHY Blood Pressure : */* mmHG Vent. Rate : 109 BPM Atrial Rate : 109 BPM P-R Int : 158 ms QRS Dur : 94 ms QT Int : 374 ms P-R-T Axes : 75 -4 47 degrees QTcB Int : 503 ms Sinus tachycardia with Premature atrial complexes Cannot rule out Anterior infarct (cited on or before 29-Nov-2024) Abnormal ECG When compared with ECG of 29-Nov-2024 14:41, No significant changes seen Referred By: Jean-Paul King Electronically Signed By: Wood Steel
--- NOTE | 2024-11-30 00:03 | PC.NURSE ---
Pt found to be in SVT with HR 140-145. Pt groaning as per usual, verbally arousable. Stat EKG ordered and primary nurse made aware and at bedside.
[2024-11-30] MEDS: Metoprolol Tartrate 5 MG/5 ML VIAL IVPUSH (01:36)
--- NOTE | 2024-11-30 03:48 | MHC.EDTECH ---
Addendum entered by Chantelle Crain 11/30/24 06:39: Patient's urine is dark yellow Original Note: This tech took over car of pt at 0300am,rounded on pt,vitals taken,emptied 300MLS of yellow urine from Florez,patient is sleeping,appears comfortable,call costa within reach
[2024-11-30] MEDS: Ampicillin Sodium/Sulbactam Na 1.5 GM in 0.9 % Sodium Chloride 100 ML IV ×4 (03:52→21:34)
[2024-11-30 05:24] LABS: MANUAL DIFF FLAG NO
[2024-11-30 05:28] LABS: Basophils Percent Auto 0.4 % (0-2); Eosinophils Percent Auto 0.2 % (0-4); Hemoglobin 9.5 g/dl (14.0-18.0); Imm Gran Abs Auto 0.04 X10*3/uL (0.00-0.03); Imm Gran Pct Auto 0.4 % (0.0-0.4); Lymphocytes Absolute Auto 0.8 X10*3/uL (1.2-4.9); Lymphocytes Percent Auto 7.5 % (20-40); Mean Corpuscular HGB Conc 32.8 g/dl (31.0-36.0); Mean Corpuscular Hemoglobin 35.8 pg (27.0-33.0); Mean Corpuscular Volume 109.4 fL (80.0-98.0); Mean Platelet Volume 11.2 fL (9.4-12.4); Monocytes Absolute Auto 0.6 X10*3/uL (0.1-1.2); Monocytes Percent Auto 5.4 % (2-11); Neutrophils Absolute Auto 8.9 x10*3/uL (2.0-8.3); Neutrophils Percent Auto 86.1 % (45-73); Platelet Count 146 X10*3/uL (160-400); Red Blood Count 2.65 X10*6/uL (4.60-5.80); Red Cell Distribution Width 17.2 % (11.0-16.0); White Blood Count 10.3 X10*3/uL (4.8-10.8)
[2024-11-30 05:48] LABS: Anion Gap 13 (12-20); Blood Urea Nitrogen 14 mg/dL (9-16); Calcium 8.3 mg/dL (8.4-10.2); Carbon Dioxide 28 mmol/L (22-29); Chloride 104 mmol/L (96-108); Creatinine Clr Calc Pharmacy 76.3; Estimated Glomerular Filt Rate > 60; Glucose Random 124 mg/dL (60-115); Sodium 141 mmol/L (135-145)
[2024-11-30 06:17] LABS: Estimated Average Glucose 111 mg/dL; Hemoglobin A1C 104.6826 umol/L; Hemoglobin A1c % 5.5 % (<6.0); Total Hemoglobin (HGBA1C) 2897.1896 umol/L
--- NOTE | 2024-11-30 06:53 | PM.EVENT ---
Event Note Date of Service: 11/30/24 Event Note: messaged Dr Montalvo regarding pt as medication hx was unclear and she states pt is on hospice. added pain mangement with morphine and dilaudid Time Spent With Patient Time: Total time managing care of this patient today ____ minutes.
[2024-11-30] MEDS: Morphine Sulfate 4 MG/ML CARTRIDGE IVPUSH (07:28)
[2024-11-30] MEDS: 0.9 % Sodium Chloride Flush 3 ML SYRINGE IVFLUSH ×3 (07:28→19:43)
[2024-11-30] MEDS: Acetaminophen 1,000 MG/100 ML PIGGYBACK 400 MG IV ×3 (07:28→19:41)
[2024-11-30] MEDS: levalbuterol HCL 1.25 MG, Ipratropium Bromide 0.5 MG INHALE ×3 (07:40→19:51)
[2024-11-30] MEDS: LORazepam 2 MG/ML VIAL 1 MG IVPUSH (10:15)
--- NOTE | 2024-11-30 11:07 | PC.NURSE ---
Report received, taken over care at this time.
--- NOTE | 2024-11-30 11:09 | PC.NURSE ---
Spoke to MD during shift report, was informed that pt. is full code per health care proxy. MD to change.
--- NOTE | 2024-11-30 11:14 | MHC.SLORD ---
Speech Language Pathology Order Status: STOCKING INSPECTOR arrived to unit for swallow eval this morning. Dr. Cisneros caring for patient, with family member present. Patient was obtunded, receiving supplemental O2 via Oxymask. Per Dr. Cisneros, patient is not appropriate for swallow eval at this time, not likely to happen today. RN to contact STOCKING INSPECTOR should patient become more awake and alert later today, otherwise plan to re-attempt tomorrow a.m.
--- NOTE | 2024-11-30 12:47 | PC.NURSE ---
Pt found to have Sats in the high 70s, Oxy mask was off patients face, oxymask moved back up and increased to 4L, O2 probe fixed on patients finger. O2 now 92%
--- NOTE | 2024-11-30 14:01 | MHC.CM.PN ---
IMM 11/30/24, CM spoke to HCP, Barber Escalante: [phone]. Barber is patient's best friend of 30 years, and he checks on him daily. Pt. is not responsive at this time. PCP confirmed: Rico Rivera. Pt lives alone, he has a TAP GRINDER that comes in once a week. Pt. is able to dress and bathe himself, his walking is very limited due to his breathing. He has home O2, walker (does not use due to very small home). Pt is under the services of [facility]. HCP said that pt. has not signed a DNR. HCP would like pt. to be treated with ABX and then determine follow up care from there. CM will follow for DC needs.
--- NOTE | 2024-11-30 16:16 | HO.PM.IMPN ---
Subjective Subjective Date of Service: 11/30/24 Interval History: Seen and evaluated this morning Altered mentation Discussed goals of care with HCP at bedside Review of Systems Review of Systems: Yes Unobtainable due to mental status Physical Exam Vital Signs: Vital Signs: Last Vital Signs Temp 97.6 F 11/30/24 15:53 Pulse 92 11/30/24 15:53 Resp 22 H 11/30/24 15:53 BP 124/55 L 11/30/24 15:53 Pulse Ox 100 11/30/24 15:53 O2 Del Method Oxymask 11/30/24 15:53 O2 Flow Rate 4 11/30/24 15:53 Oxygen Flow Rate 4 11/29/24 13:09 BMI result Body Mass Index 33.0 Const: Other: Constitutional : altered, not in distress Neck : Normal inspection, Supple Cardiovascular : RRR, no JVP, no lower extremity edema Respiratory : good bilateral air entry, crackles bilaterally, on RA Gastrointestinal: soft, lax, Normal bowel sounds, Non tender Skin : Warm, Dry Neurological : altered, barely responding to sternal rub Objective Data Active Medications Calcium Carbonate (Calcium Carbonate 750 Mg Tab.Chew) 750 mg PO Q4H PRN PRN Reason: Heartburn Levalbuterol HCl 1.25 mg/ (Ipratropium [place] 0.5 mg) 0 mg INHALE RQ4H WHILE AWAKE [facility] Last Admin: 11/30/24 14:44 Dose: Not Given Documented By: TAWANA Non-Admin Reason: Elevated Heart Rate Enoxaparin Sodium (Enoxaparin Sodium 40 Mg/0.4 Ml Syringe) 40 mg SUBCUT Q24H [facility] Last Admin: 11/29/24 22:04 Dose: 40 mg Documented By: LON Lactated Ringer's (Lr) 1,000 mls @ 50 mls/hr IVCONT .Q20H [facility] Last Admin: 11/29/24 22:04 Dose: 50 mls/hr Documented By: LON Acetaminophen (Ofirmev) 1,000 mg in 100 mls @ 400 mls/hr IV Q6H [facility] Last Infusion: 11/30/24 14:10 Dose: Infused Documented By: MICHAEL Ampicillin Sodium/Sulbactam (Sodium 1.5 gm/ Sodium Chloride) 100 mls @ 200 mls/hr IV Q6H [facility] Last Admin: 11/30/24 15:38 Dose: 200 mls/hr Documented By: MICHAEL Lorazepam (Lorazepam 2 Mg/Ml Vial) 0.25 mg IVPUSH Q4H PRN PRN Reason: anxiety/restlessness Magnesium Hydroxide (Milk Of Magnesia 30 Ml Oral.Susp) 30 ml PO DAILY PRN PRN Reason: Constipation Melatonin (Melatonin 3 Mg Tablet) 6 mg PO BEDTIME PRN PRN Reason: Insomnia Morphine Sulfate (Morphine Sulfate 4 Mg/Ml Cartridge) 2 mg IVPUSH Q4H PRN; Protocol PRN Reason: Pain, Severe (Pain Scale 7-10) Sodium Chloride (0.9 % Sodium Chloride Flush 3 Ml Syringe) [facility] Last Admin: 11/30/24 15:36 Dose: 3 ml Documented By: MICHAEL Labs 11/30/24 04:34 11/30/24 04:34 Labs: Laboratory Results - last 24 hr 11/29/24 11/29/24 11/30/24 13:25 15:52 04:34 MCV 109.4 H MCH 35.8 H MCHC 32.8 RDW 17.2 H Plt Count 146 L MPV 11.2 Immature Gran % (Auto) 0.4 Neut % (Auto) 86.1 H Lymph % (Auto) 7.5 L [place] % (Auto) 5.4 Eos % (Auto) 0.2 Baso % (Auto) 0.4 Lymph # (Auto) 0.8 L [place] # (Auto) 0.6 Eos # (Auto) 0.0 Baso # (Auto) 0.0 Abs Immat Gran (auto) 0.04 H Absolute Neuts (auto) 8.9 H Absolute Nucleated RBC 0.000 Nucleated RBC % (auto) 0.0 Anion Gap 13 Estim Creat Clear Calc 76.3 Estimated GFR > 60 Random Glucose 124 H Estimat Average Glucose 111 Hemoglobin A1c % 5.5 Calcium 8.3 L Vitamin B12 1002 H Folate 15.1 Microbiology Microbiology Results: Microbiology 11/29/24 13:32 Blood Culture - Preliminary Blood - Venous No growth after 24 hours. 11/29/24 13:27 Blood Culture - Preliminary Blood - Venous No growth after 24 hours. Assessment and Plan (1) Encephalopathy acute: Status: Acute (2) Elevated brain natriuretic peptide (BNP) level: Status: Acute (3) Metabolic encephalopathy: Status: Acute (4) Aspiration pneumonia: Status: Acute (5) Acute and chronic respiratory failure: Status: Acute Plan Patient is a 79-year-old male with a past medical history significant for hx spontaneous pneumothorax, COPD on oxygen ?4L, HLD, BPH, chronic back pain on fentanyl patch and liquid morphine, arthritis and history of substance use disorder (cocaine use), who arrived to the ED via EMS from home after being found unresponsive by friends. workup in the ED was conclusive for elevated WBC at 18.5, BNP elevated at 964 without any findings of pulmonary edema or lower extremity edema. Labs also consistent with chronic macrocytic anemia. TSH and lactic acid normal. UA negative for infection however with microscopic hematuria. Troponin elevated at 128, 161 on repeat however EKG without any signs of infarction. EKG with sinus tachycardia. CT head, neck and abdomen negative. Chest CT with multifocal pneumonia. Patient meets sepsis criteria and was given a fluid bolus and started on Zosyn. BP has been stable. The patient is still unresponsive therefore unable to provide history at this time. Oxygen saturations have been within normal limits on 2 L of oxygen. Beta hydroxybutyrate was elevated at 1.82, no history of diabetes and blood glucose within normal limits. sepsis with acute on chronic respiratory failure secondary to suspected aspiration pneumonia chest CT with multifocal pneumonia CT head, c-spine, and abd negative for acute findings pending cultures Continue unasyn LR 50cc/hr CBC and BMP metabolic vs toxic encephalopathy u tox + for opiates, oxycodone and fentanyl +ve urine lorazepam hold pain medications until pt alert CIWA elevated troponin likely secondary to acute respiratory distress no signs of infarction on EKG continue to monitor on tele elevated BNP no dx of CHF no pulmonary or LE edema Echo from 02/2024 shows normal EF chronic macrocytic anemia stable, chronic, monitor CBC microscopic hematuria UA neg for infection abd CT negative f/u with PCP elevated beta hydroxybutyrate glucose normal check A1C full code VTE prophy: yasmin Discussed goals of care with HCP who wanted the patient to be full code and get fair chance of treatment. will continue to follow and adjust status if no improvement. The patient will need overnight stay for treatment of sepsis and acute on chronic respiratory failure secondary to aspiration pneumonia with metabolic versus toxic encephalopathy for IV antibiotics Quality Stroke Does the patient have a stroke diagnosis?: No VTE Prior VTE?: No VTE Risk Level:: Medical - moderate - high VTE Device Contraindication: Treatment Not Indicated VTE Drug Contraindication: N/A - Med Ordered
--- NOTE | 2024-11-30 18:02 | PC.NURSE ---
Spoke with MD, some notes states Hospice. Bed Board states Hospice to treat per HCP wishes, Full Code, Primary RN notified.
[2024-11-30] MEDS: Lactated Ringers 1,000 ML 50 ML IVCONT (18:14)
[2024-11-30] MEDS: Enoxaparin Sodium 40 MG/0.4 ML SYRINGE SUBCUT (21:34)
[2024-12-01] VITALS (9 sets, daily range): BP systolic 125–138; BP diastolic 60–88; PULSE 92–142; RESP 16–97; TEMP 36.9–37.2; O2SAT 95–100
[2024-12-01] MEDS: Acetaminophen 1,000 MG/100 ML PIGGYBACK 400 MG IV ×4 (01:24→19:52)
[2024-12-01] MEDS: Ampicillin Sodium/Sulbactam Na 1.5 GM in 0.9 % Sodium Chloride 100 ML IV ×4 (03:37→22:08)
[2024-12-01 06:29] LABS: MANUAL DIFF FLAG NO
[2024-12-01 06:34] LABS: Basophils Percent Auto 0.5 % (0-2); Eosinophils Absolute Auto 0.1 X10*3/uL (0.0-0.4); Eosinophils Percent Auto 1.7 % (0-4); Imm Gran Abs Auto 0.03 X10*3/uL (0.00-0.03); Imm Gran Pct Auto 0.5 % (0.0-0.4); Lymphocytes Absolute Auto 0.8 X10*3/uL (1.2-4.9); Lymphocytes Percent Auto 12.6 % (20-40); Mean Corpuscular HGB Conc 33.3 g/dl (31.0-36.0); Mean Corpuscular Hemoglobin 36.4 pg (27.0-33.0); Mean Corpuscular Volume 109.3 fL (80.0-98.0); Mean Platelet Volume 11.1 fL (9.4-12.4); Monocytes Absolute Auto 0.4 X10*3/uL (0.1-1.2); Monocytes Percent Auto 6.8 % (2-11); Neutrophils Percent Auto 77.9 % (45-73); Platelet Count 135 X10*3/uL (160-400); Red Blood Count 2.47 X10*6/uL (4.60-5.80); Red Cell Distribution Width 16.9 % (11.0-16.0); White Blood Count 6.4 X10*3/uL (4.8-10.8)
[2024-12-01 06:50] LABS: Anion Gap 12 (12-20); Blood Urea Nitrogen 12 mg/dL (9-16); Calcium 8.3 mg/dL (8.4-10.2); Carbon Dioxide 27 mmol/L (22-29); Chloride 107 mmol/L (96-108); Creatinine Clr Calc Pharmacy 86.3; Estimated Glomerular Filt Rate > 60; Glucose Random 99 mg/dL (60-115); Sodium 142 mmol/L (135-145)
[2024-12-01 06:52] LABS: Anion Gap 13 (12-20); Blood Urea Nitrogen 12 mg/dL (9-16); Calcium 8.2 mg/dL (8.4-10.2); Carbon Dioxide 26 mmol/L (22-29); Chloride 107 mmol/L (96-108); Creatinine Clr Calc Pharmacy 85.3; Estimated Glomerular Filt Rate > 60; Glucose Random 99 mg/dL (60-115); Sodium 142 mmol/L (135-145)
[2024-12-01] MEDS: levalbuterol HCL 1.25 MG, Ipratropium Bromide 0.5 MG INHALE ×4 (08:01→19:24)
[2024-12-01] MEDS: 0.9 % Sodium Chloride Flush 3 ML SYRINGE IVFLUSH ×3 (08:01→22:27)
--- NOTE | 2024-12-01 10:19 | MHC.SL.SWA ---
Speech Pathologist Impression: Mild oropharyngeal dysphagia Risk of Aspiration Due to: Dysphasia Diet Status: Liquid Consistency and Strategies for Safe Swallow: Liquid Intake Recommendation: [place] Thick Liquid Intake Strategies: Solid Food Consistency: Dietary Recommendations: Pureed (NDD1) Additional Modifications to Solid Foods: Oral Medication Intake: Crushed with Puree Please contact the pharmacy regarding appropriate crushable or liquid drug formulations that are available whenever modified delivery is recommended. Compensatory Strategies and Precautions to be Taken for Safe Swallow: Sitting Upright (90 deg) Small Bites and Sips Rate of Ingestion Change Supervision While Eating and Drinking for Safe Swallow: Intermittent Supervision Foods to Avoid: Swallowing Recommended Treatments: Compens. Strategy Educat. Recommendation for Speech: Comment: Trials of thins, NTL and purees presented during evaluation. Pt had congested cough prior to trials. Cough upon sips of thins immediate, considered characteristic of airway penetration. Pt tolerated trials of NTL by cup sip and puree by tsp, feeding himself quickly and refusing further trials. Pt elicited one delayed throat clear s/p trials to spit out thick mucous. STAFF NURSE provided information to pt and family friend about purpose of bedside swallow eval and current recommendations. Anticipate pt will return to more regular diet within a few days. Family friends in agreement with recc, verbalized understanding. MD and RN notified of recommendations. Frequency/Duration: Date Range for Service Req: Timeline to reassess: Overage Shortage And Damage Clerk Clinican/Clinical Fellow: No Supervisory Statement: I have reviewed and agree with the student/clinical fellow's documentation: N/A Speech Language Pathologist: Gracie Raymond M.S., CCC-STAFF NURSE
--- NOTE | 2024-12-01 12:24 | MHC.CM.PN ---
Per MD rounds, patient not medically cleared for dc. Hospice was revoked by HCP. PT eval pending. CM will continue to follow.
[2024-12-01] MEDS: Morphine Sulfate 4 MG/ML CARTRIDGE 2 MG IVPUSH ×2 (12:58→22:26)
--- NOTE | 2024-12-01 13:31 | P.PNIM_ITS ---
Subjective Subjective Date of Service: 12/01/24 Interval History: Seen and evaluated this morning more alert and interactive passed BEEF SKINNER eval On O2 supplement no other overnight events Review of Systems Review of Systems: Yes all other systems are reviewed and are negative Physical Exam 2 Vital Signs: Vital Signs: Last Vital Signs Temp 98.9 F 12/01/24 07:22 Pulse 103 H 12/01/24 11:18 Resp 97 H 12/01/24 11:18 BP 138/88 12/01/24 07:22 Pulse Ox 96 12/01/24 11:11 O2 Del Method Room Air 12/01/24 11:11 O2 Flow Rate 2.5 12/01/24 07:22 Oxygen Flow Rate 4 11/29/24 13:09 BMI result Body Mass Index 33.0 Const: Other: Constitutional : alert, not in distress Neck : Normal inspection, Supple Cardiovascular : RRR, no JVP, no lower extremity edema Respiratory : good bilateral air entry, crackles bilaterally, on 2L O2 Gastrointestinal: soft, lax, Normal bowel sounds, Non tender Skin : Warm, Dry Neurological : alert, oriented to self and place, moving all extremities Objective Data Active Medications Calcium Carbonate (Calcium Carbonate 750 Mg Tab.Chew) 750 mg PO Q4H PRN PRN Reason: Heartburn Levalbuterol HCl 1.25 mg/ (Ipratropium [place] 0.5 mg) 0 mg INHALE RQ4H WHILE AWAKE [facility] Last Admin: 12/01/24 11:17 Dose: 1 dose Documented By: ROMMEL Enoxaparin Sodium (Enoxaparin Sodium 40 Mg/0.4 Ml Syringe) 40 mg SUBCUT Q24H [facility] Last Admin: 11/30/24 21:34 Dose: 40 mg Documented By: DANA Lactated Ringer's (Lr) 1,000 mls @ 50 mls/hr IVCONT .Q20H [facility] Last Admin: 11/30/24 18:14 Dose: 50 mls/hr Documented By: GRAZIC Acetaminophen (Ofirmev) 1,000 mg in 100 mls @ 400 mls/hr IV Q6H [facility] Last Infusion: 12/01/24 13:13 Dose: Infused Documented By: DOBROB Ampicillin Sodium/Sulbactam (Sodium 1.5 gm/ Sodium Chloride) 100 mls @ 200 mls/hr IV Q6H [facility] Last Infusion: 12/01/24 12:32 Dose: Infused Documented By: LASHAY Lorazepam (Lorazepam 2 Mg/Ml Vial) 0.25 mg IVPUSH Q4H PRN PRN Reason: anxiety/restlessness Magnesium Hydroxide (Milk Of Magnesia 30 Ml Oral.Susp) 30 ml PO DAILY PRN PRN Reason: Constipation Melatonin (Melatonin 3 Mg Tablet) 6 mg PO BEDTIME PRN PRN Reason: Insomnia Morphine Sulfate (Morphine Sulfate 4 Mg/Ml Cartridge) 2 mg IVPUSH Q4H PRN; Protocol PRN Reason: Pain, Severe (Pain Scale 7-10) Last Admin: 12/01/24 12:58 Dose: 2 mg Documented By: LASHAY Sodium Chloride (0.9 % Sodium Chloride Flush 3 Ml Syringe) [facility] Admin: 12/01/24 08:01 Dose: 3 ml Documented By: LASHAY Labs 12/01/24 06:20 12/01/24 06:20 Labs: Laboratory Results - last 24 hr 12/01/24 12/01/24 12/01/24 06:20 06:20 06:20 MCV 109.3 H MCH 36.4 H MCHC 33.3 RDW 16.9 H Plt Count 135 L MPV 11.1 Immature Gran % (Auto) 0.5 H Neut % (Auto) 77.9 H Lymph % (Auto) 12.6 L [place] % (Auto) 6.8 Eos % (Auto) 1.7 Baso % (Auto) 0.5 Lymph # (Auto) 0.8 L [place] # (Auto) 0.4 Eos # (Auto) 0.1 Baso # (Auto) 0.0 Abs Immat Gran (auto) 0.03 Absolute Neuts (auto) 5.0 Absolute Nucleated RBC 0.000 Nucleated RBC % (auto) 0.0 Anion Gap 13 12 Estim Creat Clear Calc 85.3 86.3 Estimated GFR > 60 Random Glucose Calcium 12/01/24 12/01/24 12/01/24 06:20 06:20 06:20 MCV MCH MCHC RDW Plt Count MPV Immature Gran % (Auto) Neut % (Auto) Lymph % (Auto) [place] % (Auto) Eos % (Auto) Baso % (Auto) Lymph # (Auto) [place] # (Auto) Eos # (Auto) Baso # (Auto) Abs Immat Gran (auto) Absolute Neuts (auto) Absolute Nucleated RBC Nucleated RBC % (auto) Anion Gap Estim Creat Clear Calc Estimated GFR > 60 Random Glucose 99 99 Calcium 8.2 L 8.3 L Microbiology Microbiology Results: Microbiology 11/29/24 13:32 Blood Culture - Preliminary Blood - Venous No growth after 24 hours. 11/29/24 13:27 Blood Culture - Preliminary Blood - Venous No growth after 24 hours. Assessment and Plan (1) Encephalopathy acute: Status: Acute (2) Elevated brain natriuretic peptide (BNP) level: Status: Acute (3) Metabolic encephalopathy: Status: Acute (4) Elevated beta-hydroxybutyrate: Status: Acute (5) Aspiration pneumonia: Status: Acute (6) Benzodiazepine overdose: Status: Acute Plan Patient is a 79-year-old male with a past medical history significant for hx spontaneous pneumothorax, COPD on oxygen ?4L, HLD, BPH, chronic back pain on fentanyl patch and liquid morphine, arthritis and history of substance use disorder (cocaine use), who arrived to the ED via EMS from home after being found unresponsive by friends. workup in the ED was conclusive for elevated WBC at 18.5, BNP elevated at 964 without any findings of pulmonary edema or lower extremity edema. Labs also consistent with chronic macrocytic anemia. TSH and lactic acid normal. UA negative for infection however with microscopic hematuria. Troponin elevated at 128, 161 on repeat however EKG without any signs of infarction. EKG with sinus tachycardia. CT head, neck and abdomen negative. Chest CT with multifocal pneumonia. Patient meets sepsis criteria and was given a fluid bolus and started on Zosyn. BP has been stable. The patient is still unresponsive therefore unable to provide history at this time. Oxygen saturations have been within normal limits on 2 L of oxygen. Beta hydroxybutyrate was elevated at 1.82, no history of diabetes and blood glucose within normal limits. sepsis with acute on chronic respiratory failure secondary to suspected aspiration pneumonia chest CT with multifocal pneumonia CT head, c-spine, and abd negative for acute findings pending cultures Continue unasyn LR 50cc/hr Wean O2 down as tolerated acute metabolic toxic encephalopathy u tox + for opiates, oxycodone and fentanyl , +ve urine lorazepam hold home narcotics. PRN Morphine for now Decrease his home narcotics and Ativan at time of discharge Monitor for risk of withdrawal elevated troponin likely secondary to acute respiratory distress and sepsis no signs of infarction on EKG, continue to monitor on tele elevated BNP no dx of CHF, no pulmonary or LE edema Echo from 02/2024 shows normal EF chronic macrocytic anemia stable, chronic, monitor CBC microscopic hematuria UA neg for infection abd CT negative f/u with PCP elevated beta hydroxybutyrate glucose normal check A1C full code VTE prophy: yasmin Discussed goals of care with HCP who wanted the patient to be full code and get fair chance of treatment. will continue to follow and adjust status if no improvement. WILL NEED TO rediscuss goals of care with the patient when he is more alert. Hospice team planning to continue hospice care at home upon discharge. I discussed with them the need to reduce his home narcotic and sedative medications. The patient will need overnight stay for treatment of sepsis and acute on chronic respiratory failure secondary to aspiration pneumonia with metabolic versus toxic encephalopathy for IV antibiotics Quality Stroke Does the patient have a stroke diagnosis?: No VTE Prior VTE?: No VTE Risk Level:: Medical - moderate - high VTE Device Contraindication: Treatment Not Indicated VTE Drug Contraindication: N/A - Med Ordered
[2024-12-01] MEDS: Lactated Ringers 1,000 ML 50 ML IVCONT (15:06)
[2024-12-01] MEDS: ondansetron HCL 4 MG/2 ML VIAL IVPUSH (15:42)
[2024-12-01] MEDS: Enoxaparin Sodium 40 MG/0.4 ML SYRINGE SUBCUT (22:11)
[2024-12-02] VITALS (9 sets, daily range): BP systolic 116–159; BP diastolic 57–79; PULSE 54–99; RESP 15–18; TEMP 36.1–37.3; O2SAT 89–98
[2024-12-02] MEDS: Acetaminophen 1,000 MG/100 ML PIGGYBACK 400 MG IV ×3 (01:22→13:41)
[2024-12-02] MEDS: Ampicillin Sodium/Sulbactam Na 1.5 GM in 0.9 % Sodium Chloride 100 ML IV ×4 (03:25→22:02)
[2024-12-02 07:10] LABS: MANUAL DIFF FLAG NO
[2024-12-02 07:15] LABS: Basophils Percent Auto 0.7 % (0-2); Eosinophils Absolute Auto 0.1 X10*3/uL (0.0-0.4); Eosinophils Percent Auto 2.6 % (0-4); Hematocrit 28.3 % (42.0-52.0); Hemoglobin 9.3 g/dl (14.0-18.0); Imm Gran Abs Auto 0.02 X10*3/uL (0.00-0.03); Imm Gran Pct Auto 0.4 % (0.0-0.4); Lymphocytes Absolute Auto 1.1 X10*3/uL (1.2-4.9); Lymphocytes Percent Auto 20.1 % (20-40); Mean Corpuscular HGB Conc 32.9 g/dl (31.0-36.0); Mean Corpuscular Volume 109.7 fL (80.0-98.0); Mean Platelet Volume 11.1 fL (9.4-12.4); Monocytes Absolute Auto 0.4 X10*3/uL (0.1-1.2); Monocytes Percent Auto 7.1 % (2-11); Neutrophils Absolute Auto 3.8 x10*3/uL (2.0-8.3); Neutrophils Percent Auto 69.1 % (45-73); Platelet Count 150 X10*3/uL (160-400); Red Blood Count 2.58 X10*6/uL (4.60-5.80); Red Cell Distribution Width 16.7 % (11.0-16.0); White Blood Count 5.5 X10*3/uL (4.8-10.8)
[2024-12-02 07:25] LABS: Anion Gap 13 (12-20); Blood Urea Nitrogen 11 mg/dL (9-16); Calcium 8.6 mg/dL (8.4-10.2); Carbon Dioxide 27 mmol/L (22-29); Chloride 107 mmol/L (96-108); Creatinine Clr Calc Pharmacy 81.5; Creatinine Clr Calc Pharmacy 82.4; Estimated Glomerular Filt Rate > 60; Glucose Random 119 mg/dL (60-115); Potassium 3.5 mmol/L (3.3-5.1); Potassium 3.6 mmol/L (3.3-5.1); Sodium 143 mmol/L (135-145)
[2024-12-02] MEDS: 0.9 % Sodium Chloride Flush 3 ML SYRINGE IVFLUSH ×3 (07:35→22:47)
[2024-12-02] MEDS: levalbuterol HCL 1.25 MG, Ipratropium Bromide 0.5 MG INHALE ×4 (08:29→19:02)
--- NOTE | 2024-12-02 10:35 | MHC.SL.SWA ---
Speech Pathologist Impression: Risk of Aspiration Due to: Dysphasia Diet Status: Recommend UPGRADE liquids to THIN, no straw, continue on Ground Mechanical/NDD2 with pills crushed or whole in puree. Liquid Consistency and Strategies for Safe Swallow: Liquid Intake Recommendation: Thin Liquid Intake Strategies: Small Sips No Straws Solid Food Consistency: Dietary Recommendations: Grnd/Mech Altered (NDD2) Additional Modifications to Solid Foods: Oral Medication Intake: Crushed with Puree Please contact the pharmacy regarding appropriate crushable or liquid drug formulations that are available whenever modified delivery is recommended. Compensatory Strategies and Precautions to be Taken for Safe Swallow: Sitting Upright (90 deg) No Straw Liquids from Cup Small Bites and Sips Rate of Ingestion Change Supervision While Eating and Drinking for Safe Swallow: Intermittent Supervision Foods to Avoid: Swallowing Recommended Treatments: Compens. Strategy Educat. Recommendation for Speech: Comment: Patient seen as he was concluding his breakfast, with two friends/family in room. Patient volubly complaining about thickened liquids, ( I won't drink that junk! ) with friends/family also ? why, w/punch operator explaining aspiration risk. Patient aware he has pna, other adults in room reported that he had three episodes of pneumonia in the past year. Further, they reported he lies down most of the day though he sits up to eat and drink. GLOBAL IMPLEMENTATION MANAGER offered to re-eval to upgrade liquids, with patient requesting milk. Patient initially give water by tsp, then cup sip, with patient producing timely phases of swallow. Patient was noted to cough after a delay with the cough being productive, patient spitting out phlegm. Patient then given milk by tsp, controlled cup sip, and self administered cup sip, with patient producing timely phases of swallow, noted to take individual sips from cup, no clinical signs of aspiration. Patient noted to ask to have the bed reclined after meal, it was recommended that he stay upright for at least 20 minutes after meal, again explained to patient and other individuals in room and he was cooperative. Recommend UPGRADE liquids to THIN, no straw, continue on Ground Mechanical/NDD2 with pills crushed or whole in puree. GLOBAL IMPLEMENTATION MANAGER upgraded liquids in chart, altered white board, notified RN by secure text. Frequency/Duration: Date Range for Service Req: Timeline to reassess: Community Service Representative Clinican/Clinical Fellow: No Supervisory Statement: I have reviewed and agree with the student/clinical fellow's documentation: N/A Speech Language Pathologist: Amy Stephen M.A., CCC-GLOBAL IMPLEMENTATION MANAGER
[2024-12-02] MEDS: Morphine Sulfate 4 MG/ML CARTRIDGE 2 MG IVPUSH ×3 (10:36→22:20)
--- NOTE | 2024-12-02 11:13 | MHC.CM.PN ---
CM met with patient who reports he is open to STR. Preferences are 1) [facility] @ [place] and 2) [facility]. Goal after STR is return home on hospice. PT eval pending. CM will continue to follow.
--- NOTE | 2024-12-02 12:52 | HO.PM.IMPN ---
Subjective Subjective Date of Service: 12/02/24 Interval History: Seen and evaluated this morning more alert and interactive tolerating diet participated with PT On O2 supplement no other overnight events Review of Systems Review of Systems: Yes all other systems are reviewed and are negative Physical Exam Vital Signs: Vital Signs: Last Vital Signs Temp 99.2 F 12/02/24 07:29 Pulse 54 12/02/24 12:22 Resp 18 12/02/24 12:22 BP 116/57 L 12/02/24 07:29 Pulse Ox 98 12/02/24 07:29 O2 Del Method Nasal Cannula 12/02/24 07:29 O2 Flow Rate 3 12/02/24 07:29 Oxygen Flow Rate 4 11/29/24 13:09 BMI result Body Mass Index 33.0 Const: Other: Constitutional : alert, not in distress Neck : Normal inspection, Supple Cardiovascular : RRR, no JVP, no lower extremity edema Respiratory : good bilateral air entry, crackles bilaterally, on 2L O2 Gastrointestinal: soft, lax, Normal bowel sounds, Non tender Skin : Warm, Dry Neurological : alert, oriented to self and place, moving all extremities Objective Data Active Medications Calcium Carbonate (Calcium Carbonate 750 Mg Tab.Chew) 750 mg PO Q4H PRN PRN Reason: Heartburn Levalbuterol HCl 1.25 mg/ (Ipratropium [place] 0.5 mg) 0 mg INHALE RQ4H WHILE AWAKE [facility] Last Admin: 12/02/24 12:22 Dose: 1 dose Documented By: CEZAR Enoxaparin Sodium (Enoxaparin Sodium 40 Mg/0.4 Ml Syringe) 40 mg SUBCUT Q24H [facility] Last Admin: 12/01/24 22:11 Dose: 40 mg Documented By: RICCARDO Lactated Ringer's (Lr) 1,000 mls @ 50 mls/hr IVCONT .Q20H [facility] Last Admin: 12/02/24 11:28 Dose: Not Given Documented By: LASHAY Non-Admin Reason: IV Running Acetaminophen (Ofirmev) 1,000 mg in 100 mls @ 400 mls/hr IV Q6H [facility] Last Infusion: 12/02/24 08:48 Dose: Infused Documented By: LASHAY Ampicillin Sodium/Sulbactam (Sodium 1.5 gm/ Sodium Chloride) 100 mls @ 200 mls/hr IV Q6H [facility] Last Infusion: 12/02/24 12:15 Dose: Infused Documented By: LASHAY Lorazepam (Lorazepam 2 Mg/Ml Vial) 0.25 mg IVPUSH Q4H PRN PRN Reason: anxiety/restlessness Magnesium Hydroxide (Milk Of Magnesia 30 Ml Oral.Susp) 30 ml PO DAILY PRN PRN Reason: Constipation Melatonin (Melatonin 3 Mg Tablet) 6 mg PO BEDTIME PRN PRN Reason: Insomnia Morphine Sulfate (Morphine Sulfate 4 Mg/Ml Cartridge) 2 mg IVPUSH Q4H PRN; Protocol PRN Reason: Pain, Severe (Pain Scale 7-10) Last Admin: 12/02/24 10:36 Dose: 2 mg Documented By: LASHAY Ondansetron HCl (Ondansetron Hcl 4 Mg/2 Ml Vial) 4 mg IVPUSH Q8H PRN PRN Reason: Nausea and Vomiting Last Admin: 12/01/24 15:42 Dose: 4 mg Documented By: ABBY Sodium Chloride (0.9 % Sodium Chloride Flush 3 Ml Syringe) [facility] Admin: 12/02/24 07:35 Dose: 3 ml Documented By: LASHAY Labs 12/02/24 06:50 12/02/24 06:50 Labs: Laboratory Results - last 24 hr 12/02/24 12/02/24 12/02/24 06:50 06:50 06:50 MCV 109.7 H MCH 36.0 H MCHC 32.9 RDW 16.7 H Plt Count 150 L MPV 11.1 Immature Gran % (Auto) 0.4 Neut % (Auto) 69.1 Lymph % (Auto) 20.1 [place] % (Auto) 7.1 Eos % (Auto) 2.6 Baso % (Auto) 0.7 Lymph # (Auto) 1.1 L [place] # (Auto) 0.4 Eos # (Auto) 0.1 Baso # (Auto) 0.0 Abs Immat Gran (auto) 0.02 Absolute Neuts (auto) 3.8 Absolute Nucleated RBC 0.000 Nucleated RBC % (auto) 0.0 Anion Gap 13 13 Estim Creat Clear Calc 82.4 81.5 Estimated GFR > 60 Random Glucose Calcium 12/02/24 12/02/24 12/02/24 06:50 06:50 06:50 MCV MCH MCHC RDW Plt Count MPV Immature Gran % (Auto) Neut % (Auto) Lymph % (Auto) [place] % (Auto) Eos % (Auto) Baso % (Auto) Lymph # (Auto) [place] # (Auto) Eos # (Auto) Baso # (Auto) Abs Immat Gran (auto) Absolute Neuts (auto) Absolute Nucleated RBC Nucleated RBC % (auto) Anion Gap Estim Creat Clear Calc Estimated GFR > 60 Random Glucose 119 H 119 H Calcium 8.6 8.6 Microbiology Microbiology Results: Microbiology 11/29/24 13:32 Blood Culture - Preliminary Blood - Venous No growth after 48 hours. 11/29/24 13:27 Blood Culture - Preliminary Blood - Venous No growth after 48 hours. Assessment and Plan (1) Encephalopathy acute: Status: Acute (2) Elevated brain natriuretic peptide (BNP) level: Status: Acute (3) Metabolic encephalopathy: Status: Acute (4) Elevated beta-hydroxybutyrate: Status: Acute (5) Aspiration pneumonia: Status: Acute (6) Acute and chronic respiratory failure: Status: Acute Plan Patient is a 79-year-old male with a past medical history significant for hx spontaneous pneumothorax, COPD on oxygen ?4L, HLD, BPH, chronic back pain on fentanyl patch and liquid morphine, arthritis and history of substance use disorder (cocaine use), who arrived to the ED via EMS from home after being found unresponsive by friends. workup in the ED was conclusive for elevated WBC at 18.5, BNP elevated at 964 without any findings of pulmonary edema or lower extremity edema. sepsis with acute on chronic respiratory failure secondary to suspected aspiration pneumonia Chest CT with multifocal pneumonia CT head, c-spine, and abd negative for acute findings negative cultures Continue Unasyn DC LR 50cc/hr Wean O2 down as tolerated acute metabolic toxic encephalopathy u tox + for opiates, oxycodone and fentanyl , +ve urine lorazepam hold home narcotics. PRN Morphine for now Decrease his home narcotics and Ativan at time of discharge Monitor for risk of withdrawal Elevated troponin likely secondary to acute respiratory distress and sepsis no signs of infarction on EKG, continue to monitor on tele Elevated BNP no dx of CHF, no pulmonary or LE edema Echo from 02/2024 shows normal EF chronic macrocytic anemia stable, chronic, monitor CBC microscopic hematuria UA neg for infection abd CT negative f/u with PCP elevated beta hydroxybutyrate glucose normal A1C 5.5 full code VTE prophy: yasmin Discussed goals of care with HCP who wanted the patient to be full code and get fair chance of treatment. will continue to follow and adjust status if no improvement. WILL NEED TO re-discuss goals of care with the patient when he is more alert. Hospice team planning to continue hospice care at home upon discharge. I discussed with them the need to reduce his home narcotic and sedative medications. He wants to remain full code at time of discharge to short term rehab. The patient will need overnight stay for treatment of sepsis and acute on chronic respiratory failure secondary to aspiration pneumonia with metabolic versus toxic encephalopathy for IV antibiotics. Quality Stroke Does the patient have a stroke diagnosis?: No VTE Prior VTE?: No VTE Risk Level:: Medical - moderate - high VTE Device Contraindication: Treatment Not Indicated VTE Drug Contraindication: N/A - Med Ordered
[2024-12-02] MEDS: fentaNYL 100 MCG PATCH.TD72 TRANSDERMA (14:53)
[2024-12-02] MEDS: Pregabalin 75 MG CAPSULE PO (14:53)
--- NOTE | 2024-12-02 19:20 | PC.NURSE ---
Addendum entered by Sofía Rendon RN 12/02/24 19:21: Patient able to void 100ml at 1200 Original Note: Order to remove chris catheter received, chris removed at 1040, patient tolerated procedure well, patient due to void by 1640.
[2024-12-02] MEDS: Metoprolol Tartrate 25 MG TABLET PO (20:40)
[2024-12-02] MEDS: Melatonin 3 MG TABLET 6 MG PO (20:48)
[2024-12-02] MEDS: Apixaban 5 MG TABLET PO (20:49)
[2024-12-03] VITALS (10 sets, daily range): BP systolic 119–160; BP diastolic 60–71; PULSE 73–106; RESP 18–24; TEMP 36.3–37.1; O2SAT 92–97
[2024-12-03] MEDS: Morphine Sulfate 4 MG/ML CARTRIDGE 2 MG IVPUSH ×3 (02:36→22:43)
[2024-12-03] MEDS: Ampicillin Sodium/Sulbactam Na 1.5 GM in 0.9 % Sodium Chloride 100 ML IV ×4 (03:38→22:03)
[2024-12-03 07:29] LABS: MANUAL DIFF FLAG NO
[2024-12-03 07:36] LABS: Basophils Percent Auto 0.5 % (0-2); Eosinophils Absolute Auto 0.3 X10*3/uL (0.0-0.4); Eosinophils Percent Auto 4.1 % (0-4); Hemoglobin 8.5 g/dl (14.0-18.0); Imm Gran Abs Auto 0.05 X10*3/uL (0.00-0.03); Imm Gran Pct Auto 0.8 % (0.0-0.4); Lymphocytes Absolute Auto 1.1 X10*3/uL (1.2-4.9); Lymphocytes Percent Auto 16.4 % (20-40); Mean Corpuscular HGB Conc 32.7 g/dl (31.0-36.0); Mean Corpuscular Hemoglobin 36.5 pg (27.0-33.0); Mean Platelet Volume 10.5 fL (9.4-12.4); Monocytes Absolute Auto 0.4 X10*3/uL (0.1-1.2); Monocytes Percent Auto 5.7 % (2-11); Neutrophils Absolute Auto 4.8 x10*3/uL (2.0-8.3); Neutrophils Percent Auto 72.5 % (45-73); Platelet Count 160 X10*3/uL (160-400); Red Blood Count 2.33 X10*6/uL (4.60-5.80); Red Cell Distribution Width 16.5 % (11.0-16.0); White Blood Count 6.5 X10*3/uL (4.8-10.8)
[2024-12-03 07:37] LABS: Mean Corpuscular Volume 111.6 fL (80.0-98.0)
[2024-12-03] MEDS: levalbuterol HCL 1.25 MG, Ipratropium Bromide 0.5 MG INHALE ×4 (07:41→18:42)
[2024-12-03] MEDS: buPROPion HCl XL 150 MG TAB.ER.24H PO (08:07)
[2024-12-03] MEDS: Pregabalin 75 MG CAPSULE PO (08:08)
[2024-12-03] MEDS: 0.9 % Sodium Chloride Flush 3 ML SYRINGE IVFLUSH ×2 (08:08→22:04)
[2024-12-03] MEDS: Apixaban 5 MG TABLET PO ×2 (08:08→20:35)
[2024-12-03] MEDS: Metoprolol Tartrate 25 MG TABLET PO ×2 (08:08→20:34)
[2024-12-03] MEDS: Tamsulosin HCL 0.4 MG CAPSULE PO (08:08)
--- NOTE | 2024-12-03 09:35 | HO.PM.IMPN ---
Subjective Subjective Date of Service: 12/03/24 Interval History: f/u on acute hypoxic resp failure d/t aspiration Physical Exam Vital Signs: Vital Signs: Last Vital Signs Temp 97.4 F 12/03/24 07:17 Pulse 75 12/03/24 07:46 Resp 20 12/03/24 07:46 BP 160/69 H 12/03/24 07:17 Pulse Ox 94 12/03/24 07:17 O2 Del Method Nasal Cannula 12/03/24 07:17 O2 Flow Rate 3 12/03/24 07:17 Oxygen Flow Rate 4 11/29/24 13:09 BMI result Body Mass Index 33.0 Const: Other: Constitutional : alert, not in distress Neck : Normal inspection, Supple Cardiovascular : RRR, no JVP, no lower extremity edema Respiratory : good bilateral air entry, crackles bilaterally, on 2L O2 Gastrointestinal: soft, lax, Normal bowel sounds, Non tender Skin : Warm, Dry Neurological : alert, oriented to self and place, moving all extremities Objective Data Active Medications Acetaminophen (Acetaminophen 325 Mg Tablet) 650 mg PO Q6H PRN PRN Reason: Pain, Mild 1-3,fever,headache Albuterol/Ipratropium (Albuterol/Iprat 2.5/0.5mg 3 Ml Ampul.Neb) 3 ml INHALE QID PRN PRN Reason: dyspnea Apixaban (Apixaban 5 Mg Tablet) 5 mg PO BID [facility] Last Admin: 12/03/24 08:08 Dose: 5 mg Documented By: JOS Bupropion HCl (Bupropion Hcl Xl 150 Mg Tab.Er.24h) 150 mg PO DAILY [facility] Last Admin: 12/03/24 08:07 Dose: 150 mg Documented By: JOS Calcium Carbonate (Calcium Carbonate 750 Mg Tab.Chew) 750 mg PO Q4H PRN PRN Reason: Heartburn Levalbuterol HCl 1.25 mg/ (Ipratropium [place] 0.5 mg) 0 mg INHALE RQ4H WHILE AWAKE [facility] Last Admin: 12/03/24 07:41 Dose: 1 dose Documented By: TAWANA Comments: Fentanyl (Fentanyl 100 Mcg Patch.Td72) 100 mcg TRANSDERMA Q3D [facility] Last Admin: 12/02/24 14:53 Dose: 100 mcg Documented By: LASHAY Ampicillin Sodium/Sulbactam (Sodium 1.5 gm/ Sodium Chloride) 100 mls @ 200 mls/hr IV Q6H [facility] Last Infusion: 12/03/24 04:10 Dose: Infused Documented By: RICCARDO Lorazepam (Lorazepam 2 Mg/Ml Vial) 0.25 mg IVPUSH Q4H PRN PRN Reason: anxiety/restlessness Magnesium Hydroxide (Milk Of Magnesia 30 Ml Oral.Susp) 30 ml PO DAILY PRN PRN Reason: Constipation Melatonin (Melatonin 3 Mg Tablet) 6 mg PO BEDTIME PRN PRN Reason: Insomnia Last Admin: 12/02/24 20:48 Dose: 6 mg Documented By: RICCARDO Metoprolol Tartrate (Metoprolol Tartrate 25 Mg Tablet) 25 mg PO BID [facility]; Protocol Last Admin: 12/03/24 08:08 Dose: 25 mg Documented By: JOS Morphine Sulfate (Morphine Sulfate 4 Mg/Ml Cartridge) 2 mg IVPUSH Q4H PRN; Protocol PRN Reason: Pain, Severe (Pain Scale 7-10) Last Admin: 12/03/24 02:36 Dose: 2 mg Documented By: RICCARDO Non-Formulary Medication (Latanoprostene Bunod [Vyzulta]) 1 drop EYE-BOTH BEDTIME [facility] Ondansetron HCl (Ondansetron Hcl 4 Mg/2 Ml Vial) 4 mg IVPUSH Q8H PRN PRN Reason: Nausea and Vomiting Last Admin: 12/01/24 15:42 Dose: 4 mg Documented By: ABBY Pregabalin (Pregabalin 75 Mg Capsule) 75 mg PO DAILY [facility] Last Admin: 12/03/24 08:08 Dose: 75 mg Documented By: JOS Sodium Chloride (0.9 % Sodium Chloride Flush 3 Ml Syringe) 3 ml IVFLUSH QSHIFT [facility] Last Admin: 12/03/24 08:08 Dose: 3 ml Documented By: JOS Tamsulosin HCl (Tamsulosin Hcl 0.4 Mg Capsule) 0.4 mg PO DAILY [facility] Last Admin: 12/03/24 08:08 Dose: 0.4 mg Documented By: JOS Labs 12/03/24 07:24 12/02/24 06:50 Labs: Laboratory Results - last 24 hr 12/03/24 07:24 MCV 111.6 H MCH 36.5 H MCHC 32.7 RDW 16.5 H Plt Count 160 MPV 10.5 Immature Gran % (Auto) 0.8 H Neut % (Auto) 72.5 Lymph % (Auto) 16.4 L [place] % (Auto) 5.7 Eos % (Auto) 4.1 H Baso % (Auto) 0.5 Lymph # (Auto) 1.1 L [place] # (Auto) 0.4 Eos # (Auto) 0.3 Baso # (Auto) 0.0 Abs Immat Gran (auto) 0.05 H Absolute Neuts (auto) 4.8 Absolute Nucleated RBC 0.000 Nucleated RBC % (auto) 0.0 Assessment and Plan (1) Encephalopathy acute: Status: Acute (2) Elevated brain natriuretic peptide (BNP) level: Status: Acute (3) Metabolic encephalopathy: Status: Acute (4) Elevated beta-hydroxybutyrate: Status: Acute (5) Aspiration pneumonia: Status: Acute (6) Acute and chronic respiratory failure: Status: Acute Plan Patient is a 79-year-old male with a past medical history significant for hx spontaneous pneumothorax, COPD on oxygen ?4L, HLD, BPH, chronic back pain on fentanyl patch and liquid morphine, arthritis and history of substance use disorder (cocaine use), who arrived to the ED via EMS from home after being found unresponsive by friends. workup in the ED was conclusive for elevated WBC at 18.5, BNP elevated at 964 without any findings of pulmonary edema or lower extremity edema. sepsis with acute on chronic respiratory failure secondary to suspected aspiration pneumonia Chest CT with multifocal pneumonia CT head, c-spine, and abd negative for acute findings negative cultures Continue Unasyn, change to augmentin at discharge= Wean O2 down as tolerated acute metabolic toxic encephalopathy u tox + for opiates, oxycodone and fentanyl , +ve urine lorazepam hold home narcotics. PRN Morphine for now Decrease his home narcotics and Ativan at time of discharge Monitor for risk of withdrawal Elevated troponin likely secondary to acute respiratory distress and sepsis no signs of infarction on EKG, continue to monitor on tele Elevated BNP no dx of CHF, some rales on exam and trace leg edema Echo from 02/2024 shows normal EF iv lasix 40 now chronic macrocytic anemia stable, chronic, monitor CBC microscopic hematuria UA neg for infection abd CT negative f/u with PCP elevated beta hydroxybutyrate glucose normal A1C 5.5 full code VTE prophy: lovenox HCP wants the patient to be full code. will continue to follow and adjust status if no improvement. WILL NEED TO re-discuss goals of care with the patient when he is more alert. Hospice team planning to continue hospice care at home upon discharge. I discussed with them the need to reduce his home narcotic and sedative medications. He wants to remain full code at time of discharge to short term rehab. The patient will need overnight stay for treatment of sepsis and acute on chronic respiratory failure secondary to aspiration pneumonia with metabolic versus toxic encephalopathy for IV antibiotics. Quality Stroke Does the patient have a stroke diagnosis?: No VTE Prior VTE?: No VTE Risk Level:: Medical - moderate - high VTE Device Contraindication: Treatment Not Indicated VTE Drug Contraindication: N/A - Med Ordered
[2024-12-03] MEDS: Furosemide 40 MG/4 ML VIAL IVPUSH (09:46)
[2024-12-03 10:09] LABS: Anion Gap 13 (12-20); Blood Urea Nitrogen 9 mg/dL (9-16); Carbon Dioxide 29 mmol/L (22-29); Chloride 106 mmol/L (96-108); Estimated Glomerular Filt Rate > 60; Glucose Random 109 mg/dL (60-115); Potassium 3.9 mmol/L (3.3-5.1); Sodium 144 mmol/L (135-145)
[2024-12-03 10:12] LABS: B Type Natriuretic Peptide 134 pg/mL (<100)
--- NOTE | 2024-12-03 11:16 | MHC.CM.PN ---
Per MD rounds patient not medically cleared for dc. [facility] following for potential dc over the weekend. CM will continue to follow.
[2024-12-03 12:19] LABS: Venous Blood Gas Refer to POC result
[2024-12-03 12:20] LABS: VBG HCO3 41 mmol/L (22-26); VBG pCO2 63 mmHg; VBG pH 7.42 (7.32-7.43); VBG pO2 31 mmHg
--- NOTE | 2024-12-03 12:20 | MHC.SL.SWA ---
Speech Pathologist Impression: Risk of Aspiration, Oropharyngeal Dysphagia Dysphasia Diet Status: No Change Liquid Consistency and Strategies for Safe Swallow: Liquid Intake Recommendation: Thin Liquid Intake Strategies: Small Sips No Straws Solid Food Consistency: Dietary Recommendations: Grnd/Mech Altered (NDD2) Additional Modifications to Solid Foods: Oral Medication Intake: Crushed with Puree Please contact the pharmacy regarding appropriate crushable or liquid drug formulations that are available whenever modified delivery is recommended. Compensatory Strategies and Precautions to be Taken for Safe Swallow: Sitting Upright (90 deg) No Straw Liquids from Cup Small Bites and Sips Rate of Ingestion Change Supervision While Eating and Drinking for Safe Swallow: Intermittent Supervision Swallowing Recommended Treatments: Compens. Strategy Educat. Recommendation for Speech: Inpatient ST Criminal Legal Assistant Clinican/Clinical Fellow: No Supervisory Statement: I have reviewed and agree with the student/clinical fellow's documentation: N/A Speech Language Pathologist: Ursula Bianchi M.A., CCC-CONTRACT CLERK
[2024-12-03] MEDS: methylPREDNISolone Sod Succ 40 MG/ML VIAL IVPUSH ×2 (12:55→23:39)
--- NOTE | 2024-12-03 21:24 | PC.NURSE ---
2114 heart rate in the 140's. notified.heart rate came down to low 100's. notified.no new orders at this time.
[2024-12-04] VITALS (10 sets, daily range): BP systolic 135–148; BP diastolic 67–78; PULSE 68–95; RESP 16–20; TEMP 36.2–36.8; O2SAT 93–98
[2024-12-04] MEDS: Melatonin 3 MG TABLET 6 MG PO (01:16)
[2024-12-04] MEDS: Albuterol/Iprat 2.5/0.5MG 3 ML AMPUL.NEB INHALE ×2 (01:19→23:17)
[2024-12-04] MEDS: LORazepam 2 MG/ML VIAL 0.25 MG IVPUSH ×2 (02:01→23:47)
[2024-12-04] MEDS: Morphine Sulfate 4 MG/ML CARTRIDGE 2 MG IVPUSH ×4 (02:43→23:47)
[2024-12-04] MEDS: Ampicillin Sodium/Sulbactam Na 1.5 GM in 0.9 % Sodium Chloride 100 ML IV ×4 (04:33→21:56)
[2024-12-04] MEDS: levalbuterol HCL 1.25 MG, Ipratropium Bromide 0.5 MG INHALE ×4 (07:53→19:10)
--- NOTE | 2024-12-04 08:05 | HO.PM.IMPN ---
Subjective Subjective Date of Service: 12/04/24 Interval History: f/u on acute hypoxic resp failure d/t aspiration overall doing better, reporting no sob this morning Physical Exam Vital Signs: Vital Signs: Last Vital Signs Temp 98.2 F 12/04/24 07:50 Pulse 73 12/04/24 07:55 Resp 20 12/04/24 07:55 BP 135/78 12/04/24 07:50 Pulse Ox 95 12/04/24 07:50 O2 Del Method Nasal Cannula 12/04/24 07:50 O2 Flow Rate 3.0 12/04/24 07:50 Oxygen Flow Rate 4 11/29/24 13:09 BMI result Body Mass Index 33.0 Const: Other: Constitutional : alert, not in distress Neck : Normal inspection, Supple Cardiovascular : RRR, no JVP, no lower extremity edema Respiratory : good bilateral air entry, crackles bilaterally, on 2L O2 Gastrointestinal: soft, lax, Normal bowel sounds, Non tender Skin : Warm, Dry Neurological : alert, oriented to self and place, moving all extremities Objective Data Active Medications Acetaminophen (Acetaminophen 325 Mg Tablet) 650 mg PO Q6H PRN PRN Reason: Pain, Mild 1-3,fever,headache Albuterol/Ipratropium (Albuterol/Iprat 2.5/0.5mg 3 Ml Ampul.Neb) 3 ml INHALE QID PRN PRN Reason: dyspnea Last Admin: 12/04/24 01:19 Dose: 3 ml Documented By: KARI Apixaban (Apixaban 5 Mg Tablet) 5 mg PO BID [facility] Last Admin: 12/03/24 20:35 Dose: 5 mg Documented By: DANA Bupropion HCl (Bupropion Hcl Xl 150 Mg Tab.Er.24h) 150 mg PO DAILY [facility] Last Admin: 12/03/24 08:07 Dose: 150 mg Documented By: JOS Calcium Carbonate (Calcium Carbonate 750 Mg Tab.Chew) 750 mg PO Q4H PRN PRN Reason: Heartburn Levalbuterol HCl 1.25 mg/ (Ipratropium [place] 0.5 mg) 0 mg INHALE RQ4H WHILE AWAKE [facility] Last Admin: 12/04/24 07:53 Dose: 1 dose Documented By: MARY Fentanyl (Fentanyl 100 Mcg Patch.Td72) 100 mcg TRANSDERMA Q3D [facility] Last Admin: 12/02/24 14:53 Dose: 100 mcg Documented By: DOBROB Ampicillin Sodium/Sulbactam (Sodium 1.5 gm/ Sodium Chloride) 100 mls @ 200 mls/hr IV Q6H [facility] Last Infusion: 12/04/24 05:08 Dose: Infused Documented By: DANA Lorazepam (Lorazepam 2 Mg/Ml Vial) 0.25 mg IVPUSH Q4H PRN PRN Reason: anxiety/restlessness Last Admin: 12/04/24 02:01 Dose: 0.25 mg Documented By: DANA Magnesium Hydroxide (Milk Of Magnesia 30 Ml Oral.Susp) 30 ml PO DAILY PRN PRN Reason: Constipation Melatonin (Melatonin 3 Mg Tablet) 6 mg PO BEDTIME PRN PRN Reason: Insomnia Last Admin: 12/04/24 01:16 Dose: 6 mg Documented By: DANA Methylprednisolone Sodium Succinate (Methylprednisolone Sod Succ 40 Mg/Ml Vial) 40 mg IVPUSH Q12H [facility] Last Admin: 12/03/24 23:39 Dose: 40 mg Documented By: DANA Metoprolol Tartrate (Metoprolol Tartrate 25 Mg Tablet) 25 mg PO BID [facility]; Protocol Last Admin: 12/03/24 20:34 Dose: 25 mg Documented By: DANA Morphine Sulfate (Morphine Sulfate 4 Mg/Ml Cartridge) 2 mg IVPUSH Q4H PRN; Protocol PRN Reason: Pain, Severe (Pain Scale 7-10) Last Admin: 12/04/24 02:43 Dose: 2 mg Documented By: DANA Non-Formulary Medication (Latanoprostene Bunod [Vyzulta]) 1 drop EYE-BOTH BEDTIME [facility] Ondansetron HCl (Ondansetron Hcl 4 Mg/2 Ml Vial) 4 mg IVPUSH Q8H PRN PRN Reason: Nausea and Vomiting Last Admin: 12/01/24 15:42 Dose: 4 mg Documented By: ABBY Pregabalin (Pregabalin 75 Mg Capsule) 75 mg PO DAILY [facility] Last Admin: 12/03/24 08:08 Dose: 75 mg Documented By: JOS Sodium Chloride (0.9 % Sodium Chloride Flush 3 Ml Syringe) 3 ml IVFLUSH QSHIFT [facility] Last Admin: 12/03/24 22:04 Dose: 3 ml Documented By: DANA Tamsulosin HCl (Tamsulosin Hcl 0.4 Mg Capsule) 0.4 mg PO DAILY [facility] Last Admin: 12/03/24 08:08 Dose: 0.4 mg Documented By: JOS Labs 12/03/24 07:24 12/03/24 09:14 Labs: Laboratory Results - last 24 hr 12/03/24 12/03/24 09:14 12:16 VBG pH 7.42 VBG pCO2 63 VBG pO2 31 VBG HCO3 41 H VBG O2 Saturation 41.0 VBG Base Excess 15.0 Anion Gap 13 Estim Creat Clear Calc 93.0 Estimated GFR > 60 Random Glucose 109 Calcium 9.0 B-Natriuretic Peptide 134 H Assessment and Plan (1) Encephalopathy acute: Status: Acute (2) Elevated brain natriuretic peptide (BNP) level: Status: Acute (3) Metabolic encephalopathy: Status: Acute (4) Elevated beta-hydroxybutyrate: Status: Acute (5) Aspiration pneumonia: Status: Acute (6) Acute and chronic respiratory failure: Status: Acute Plan Patient is a 79-year-old male with a past medical history significant for hx spontaneous pneumothorax, COPD on oxygen ?4L, HLD, BPH, chronic back pain on fentanyl patch and liquid morphine, arthritis and history of substance use disorder (cocaine use), who arrived to the ED via EMS from home after being found unresponsive by friends. workup in the ED was conclusive for elevated WBC at 18.5, BNP elevated at 964 without any findings of pulmonary edema or lower extremity edema. sepsis with acute on chronic respiratory failure secondary to suspected aspiration pneumonia Chest CT with multifocal pneumonia repeat cxr 12/03 showed improvment, however very wheezy and added steroid on 12/03 CT head, c-spine, and abd negative for acute findings negative cultures Continue Unasyn, change to augmentin today Wean O2 down as tolerated acute metabolic toxic encephalopathy u tox + for opiates, oxycodone and fentanyl , +ve urine lorazepam PRN Morphine for now, hold oxycodone Decrease his home narcotics and Ativan at time of discharge Monitor for risk of withdrawal Elevated troponin likely secondary to acute respiratory distress and sepsis no signs of infarction on EKG, continue to monitor on tele Elevated BNP no dx of CHF, some rales on exam and trace leg edema Echo from 02/2024 shows normal EF , BNP 12/03 134 given IV lasix x 1 12/03 chronic macrocytic anemia stable, chronic, monitor CBC microscopic hematuria UA neg for infection abd CT negative f/u with PCP elevated beta hydroxybutyrate, no acidosis glucose normal A1C 5.5 full code VTE prophy: lovenox HCP wants the patient to be full code. will continue to follow and adjust status if no improvement. WILL NEED TO re-discuss goals of care with the patient when he is more alert. Hospice team planning to continue hospice care at home upon discharge. I discussed with them the need to reduce his home narcotic and sedative medications. He wants to remain full code at time of discharge to short term rehab. Need for inpatient : acute hypoxic respiratory failure, aspiration pneumonia, hypox and getting IV Abx Quality Stroke Does the patient have a stroke diagnosis?: No VTE Prior VTE?: No VTE Risk Level:: Medical - moderate - high VTE Device Contraindication: Treatment Not Indicated VTE Drug Contraindication: N/A - Med Ordered
[2024-12-04] MEDS: Pregabalin 75 MG CAPSULE PO (08:36)
[2024-12-04] MEDS: Tamsulosin HCL 0.4 MG CAPSULE PO (08:36)
[2024-12-04] MEDS: Metoprolol Tartrate 25 MG TABLET PO ×2 (08:37→20:47)
[2024-12-04] MEDS: Apixaban 5 MG TABLET PO ×2 (08:37→20:47)
[2024-12-04] MEDS: buPROPion HCl XL 150 MG TAB.ER.24H PO (08:37)
[2024-12-04] MEDS: 0.9 % Sodium Chloride Flush 3 ML SYRINGE IVFLUSH ×3 (08:37→21:56)
[2024-12-04] MEDS: methylPREDNISolone Sod Succ 40 MG/ML VIAL IVPUSH ×2 (13:55→23:47)
[2024-12-05 02:49] VITALS: BP 144/64; PULSE 77; RESP 17; TEMP 36.1; O2SAT 94
[2024-12-05] MEDS: Ampicillin Sodium/Sulbactam Na 1.5 GM in 0.9 % Sodium Chloride 100 ML IV (03:51)
[2024-12-05 07:21] VITALS: BP 144/63; PULSE 72; RESP 18; TEMP 36.8; O2SAT 93
[2024-12-05] MEDS: levalbuterol HCL 1.25 MG, Ipratropium Bromide 0.5 MG INHALE ×2 (07:32→11:32)
[2024-12-05 07:35] VITALS: PULSE 75; RESP 18; O2SAT 95
[2024-12-05] MEDS: 0.9 % Sodium Chloride Flush 3 ML SYRINGE IVFLUSH (07:55)
[2024-12-05] MEDS: Apixaban 5 MG TABLET PO (08:00)
[2024-12-05] MEDS: predniSONE 20 MG TABLET 40 MG PO (08:00)
[2024-12-05] MEDS: buPROPion HCl XL 150 MG TAB.ER.24H PO (08:01)
[2024-12-05] MEDS: Metoprolol Tartrate 25 MG TABLET PO (08:01)
[2024-12-05] MEDS: Tamsulosin HCL 0.4 MG CAPSULE PO (08:01)
[2024-12-05] MEDS: Pregabalin 75 MG CAPSULE PO (08:01)
[2024-12-05] MEDS: Amoxicillin/Potassium Clav 875 MG TABLET PO (08:02)
[2024-12-05] MEDS: Morphine Sulfate 4 MG/ML CARTRIDGE 2 MG IVPUSH (08:04)
--- NOTE | 2024-12-05 08:29 | PM.DS ---
DS: Providers Provider Date of Service: 12/05/24 Date of admission: 11/29/24 21:35 Date of discharge: 12/05/24 Primary care physician: Nikita Rivera MD DS: Diagnosis Discharge Diagnosis (1) Encephalopathy acute: Status: Acute (2) Elevated brain natriuretic peptide (BNP) level: Status: Acute (3) Metabolic encephalopathy: Status: Acute (4) Elevated beta-hydroxybutyrate: Status: Acute (5) Aspiration pneumonia: Status: Acute (6) Acute and chronic respiratory failure: Status: Acute DS: Summary Hospital Course Hospital Course: admission hpi Chief Complaint: unresponsive Patient is a 79-year-old male with a past medical history significant for spontaneous pneumothorax, COPD on oxygen ?4L, HLD, BPH, chronic back pain on fentanyl patch and liquid morphine, arthritis and history of substance use disorder (cocaine use), who arrived to the ED via EMS from home after being found unresponsive by friends. They did report altered mental status for the past 2 days. He was only responsive to painful stimuli, pupils are reactive. EMS did find a bottle of lorazepam slowly empty, prescribed 2 weeks ago with 84 tablets (rx'd for dyspnea Q4H, therefore, rx would be gone if taken Q4H). The patient did also have 2 fentanyl patches on bilateral thighs. History was unable to be obtained as the patient is unresponsive aside from with painful stimuli and will state his name. workup in the ED was conclusive for elevated WBC at 18.5, BNP elevated at 964 without any findings of pulmonary edema or lower extremity edema. Labs also consistent with chronic macrocytic anemia. TSH and lactic acid normal. UA negative for infection however with microscopic hematuria. Troponin elevated at 128, 161 on repeat however EKG without any signs of infarction. EKG with sinus tachycardia. CT head, neck and abdomen negative. Chest CT with multifocal pneumonia. Patient meets sepsis criteria and was given a fluid bolus and started on Zosyn. BP has been stable. The patient is still unresponsive therefore unable to provide history at this time. Oxygen saturations have been within normal limits on 2 L of oxygen. Beta hydroxybutyrate was elevated at 1.82, no history of diabetes and blood glucose within normal limits. Hospital course: Patient is a 79-year-old male with a past medical history significant for spontaneous pneumothorax, chronic respiratory failure due to COPD on oxygen (~4L), HLD, BPH, chronic back pain on fentanyl patch and liquid morphine, arthritis, and a history of substance use disorder (cocaine), who arrived at the ED via EMS from home after being found unresponsive by friends. Workup in the ED revealed an elevated WBC of 18.5, and BNP of 964, without findings of pulmonary edema or lower extremity edema. He as admitted for management of sepsis, aspiration pneumonia and metabolic encephalopathy Sepsis with acute on chronic respiratory failure secondary to suspected aspiration pneumonia, as evidenced by CXR and CT. This was complicated by acute hypoxia and encephalopathy. He was treated with Unasyn from 11/29 to 12/05 and is now being transitioned to oral Augmentin to complete a total 10-day course. A repeat CXR showed improvement in the pneumonia. Cultures have been negative. Overall, the patient has improved. Oxygen has been weaned down to 2L with saturation of 94%. COPD with acute exacerbation with acute on chronic respiratory failure. treated with IV steroid, bronchodilators and will transition to oral Prednisone 40 mg x 3 days, then chronic steroid of 10 mg dialy Acute metabolic/toxic encephalopathy related to the above and possibly medication-related, given the use of fentanyl, oxycodone, and benzodiazepines. Encephalopathy has resolved, and the patient is now at baseline mental status. Chronic pain--previously on oxycodone 10 q 4 to 6, fentanyl 112mcg q 3 days, morphine concerntrate oral solution 10 ml q4, and ativan 0.25 mg q for prn for anxiety Elevated troponin, consistent with Type 2 [place] in the setting of sepsis, acute respiratory distress, and hypoxia. Elevated BNP No formal diagnosis of CHF. Some rales noted on exam and trace bilateral leg edema. Echo from 02/2024 shows normal EF. BNP on 12/03: 134. Received IV Lasix x1 on 12/03. Currently appears euvolemic. Chronic macrocytic anemia Stable and chronic. Continue to monitor CBC. Microscopic hematuria UA negative for infection. Abdominal CT negative. To follow up with PCP. Elevated beta-hydroxybutyrate, but no acidosis Glucose is normal. A1C: 5.5 Time Attestation Discharge Coordination Time (in mins): 45 Quality: Safe Use of Opioids Does Pt have an Active Cancer Diagnosis on the Problem List?: No Quality: Stroke Does the patient have a stroke diagnosis?: No Physical Exam Vital Signs: Vital Signs: Last Vital Signs Temp 98.3 F 12/05/24 07:21 Pulse 75 12/05/24 07:35 Resp 18 12/05/24 07:35 BP 144/63 H 12/05/24 07:21 Pulse Ox 93 12/05/24 07:21 O2 Del Method Nasal Cannula 12/05/24 07:21 O2 Flow Rate 2.0 12/05/24 07:21 Oxygen Flow Rate 4 11/29/24 13:09 BMI result Body Mass Index 33.0 Const: Other: General: AO X 2, no acute distress Resp: CTA bilateral CVS: S1,S2,RRR GI: +BS, NT, no distention Skin: No rash Neuro: motor grossly intact Psych: appropriate affect DS: Data Data Completed and Pending Completed studies during hospitalization [Text1]: Procedures Drainage of Right Pleural Cavity with Drainage Device, Percutaneous Approach (03/28/24) Transfusion of Nonautologous Red Blood Cells into Peripheral Vein, Percutaneous Approach (03/28/24) Discharge Plan Discharge Anticipated Discharge Date/Time: 12/05/24 08:46 Patient Disposition: er [facility] Discharge Diagnosis: Aspiration pneumonia, acute hypoxic respiratory failure, metabolic encephalopathy Referrals: Nikita Rivera MD [Primary Care Provider] - 1 Week Discharge Medications: New amoxicillin-pot clavulanate 875-125 mg Tablet 1 tab PO Q12H Qty: 6 0RF prednisone 10 mg tablet 30 mg PO DAILY 3 Days Qty: 9 0RF Rx Instructions: see taper instructions Continued albuterol sulfate 90 mcg/actuation HFA aerosol inhaler 2 puff INHALATION Q4H PRN (Reason: Shortness Of Breath Or Wheezing) Qty: 1 6RF ipratropium-albuterol 0.5 mg-3 mg(2.5 mg base)/3 mL solution for nebulization 3 ml inhalation QID PRN (Reason: dyspnea) Qty: 180 6RF multivitamin Tablet 1 tab PO DAILY cholecalciferol (vitamin D3) 25 mcg (1,000 unit) Tablet 25 mcg PO DAILY prednisone 10 mg tablet 10 mg PO DAILY Rx Instructions: see taper instructions pregabalin 75 mg capsule 150 mg PO DAILY Vyzulta 0.024 % drops 1 drp ophthalmic (eye) BEDTIME Rx Instructions: both eyes Vitamin B-6 50 mg Capsule 50 mg PO DAILY Eliquis 5 mg Tablet 5 mg PO BID Qty: 60 0RF bupropion HCl 150 mg tablet sustained-release 12 hr 150 mg PO BID tamsulosin 0.4 mg capsule 0.4 mg PO DAILY Trelegy Ellipta 100-62.5-25 mcg Blister With Device 1 inh INHALATION DAILY fentanyl 100 mcg/hr patch 72 hour 1 patch topical Q3D Qty: 10 0RF Rx Instructions: APPLY 1 PATCH TO SKIN WITH 12MCG PATCH EVERY 72 HOURS FOR PAIN atorvastatin 10 mg tablet 10 mg PO DAILY Changed lorazepam 0.5 mg tablet 0.25 mg PO Q4H PRN (Reason: dyspnea) Qty: 10 0RF metoprolol tartrate 50 mg tablet 25 mg PO BID Qty: 60 0RF oxycodone 10 mg tablet 10 mg PO Q4H PRN (Reason: pain) Qty: 20 0RF Discontinued morphine concentrate 100 mg/5 mL (20 mg/mL) solution 10 mg PO Q3-4H PRN (Reason: dyspnea) fentanyl 12 mcg/hr patch 72 hour 1 patch topical Q3D Rx Instructions: APPLY 1 PATCH TO SKIN WITH 100MCG PATCH EVERY 72 HOURS FOR PAIN Discharge Orders: Discharge Order (Routine); Ordered 12/05/24 Ordered By: Burt Arvizu Diet: Advance to usual diet Activity on Discharge: As tolerated Stand Alone Forms: Patient Portal Discharge page Print Language: Persian Care Plan Goals: recovery from aspriation pneumonia and encephalopathy Health Concerns: Aspiration pneumonia, Metabolic encephalopathy Plan of Treatment: Take Augmentin for pneumonia take prednisone as directed 40 mg daily for 3 more days, then 10 mg daily for maintenance as before Assessment: see above
--- NOTE | 2024-12-05 08:56 | HO.PM.IMPN ---
Subjective Subjective Date of Service: 12/05/24 Interval History: f/u on acute hypoxic resp failure d/t aspiration overall doing better, reporting no sob this morning Physical Exam Vital Signs: Vital Signs: Last Vital Signs Temp 98.3 F 12/05/24 07:21 Pulse 75 12/05/24 07:35 Resp 18 12/05/24 07:35 BP 144/63 H 12/05/24 07:21 Pulse Ox 93 12/05/24 07:21 O2 Del Method Nasal Cannula 12/05/24 07:21 O2 Flow Rate 2.0 12/05/24 07:21 Oxygen Flow Rate 4 11/29/24 13:09 BMI result Body Mass Index 33.0 Const: Other: General: AO X 2, no acute distress Resp: CTA bilateral CVS: S1,S2,RRR GI: +BS, NT, no distention Skin: No rash Neuro: motor grossly intact Psych: appropriate affect Objective Data Active Medications Acetaminophen (Acetaminophen 325 Mg Tablet) 650 mg PO Q6H PRN PRN Reason: Pain, Mild 1-3,fever,headache Albuterol/Ipratropium (Albuterol/Iprat 2.5/0.5mg 3 Ml Ampul.Neb) 3 ml INHALE QID PRN PRN Reason: dyspnea Last Admin: 12/04/24 23:17 Dose: 3 ml Documented By: KARI Amoxicillin/Clavulanate Potassium (Amoxicillin/Potassium Clav 875 Mg Tablet) 875 mg PO Q12H [facility] Last Admin: 12/05/24 08:02 Dose: 875 mg Documented By: JEANNIE Apixaban (Apixaban 5 Mg Tablet) 5 mg PO BID [facility] Last Admin: 12/05/24 08:00 Dose: 5 mg Documented By: JEANNIE Bupropion HCl (Bupropion Hcl Xl 150 Mg Tab.Er.24h) 150 mg PO DAILY [facility] Last Admin: 12/05/24 08:01 Dose: 150 mg Documented By: JEANNIE Calcium Carbonate (Calcium Carbonate 750 Mg Tab.Chew) 750 mg PO Q4H PRN PRN Reason: Heartburn Levalbuterol HCl 1.25 mg/ (Ipratropium [place] 0.5 mg) 0 mg INHALE RQ4H WHILE AWAKE [facility] Last Admin: 12/05/24 07:32 Dose: 5 dose Documented By: MACARENA Fentanyl (Fentanyl 100 Mcg Patch.Td72) 100 mcg TRANSDERMA Q3D [facility] Last Admin: 12/02/24 14:53 Dose: 100 mcg Documented By: DOBROB Lorazepam (Lorazepam 2 Mg/Ml Vial) 0.25 mg IVPUSH Q4H PRN PRN Reason: anxiety/restlessness Last Admin: 12/04/24 23:47 Dose: 0.25 mg Documented By: DANA Magnesium Hydroxide (Milk Of Magnesia 30 Ml Oral.Susp) 30 ml PO DAILY PRN PRN Reason: Constipation Melatonin (Melatonin 3 Mg Tablet) 6 mg PO BEDTIME PRN PRN Reason: Insomnia Last Admin: 12/04/24 01:16 Dose: 6 mg Documented By: DANA Metoprolol Tartrate (Metoprolol Tartrate 25 Mg Tablet) 25 mg PO BID [facility]; Protocol Last Admin: 12/05/24 08:01 Dose: 25 mg Documented By: JEANNIE Morphine Sulfate (Morphine Sulfate 4 Mg/Ml Cartridge) 2 mg IVPUSH Q4H PRN; Protocol PRN Reason: Pain, Severe (Pain Scale 7-10) Last Admin: 12/05/24 08:04 Dose: 2 mg Documented By: JEANNIE Non-Formulary Medication (Latanoprostene Bunod [Vyzulta]) 1 drop EYE-BOTH BEDTIME [facility] Ondansetron HCl (Ondansetron Hcl 4 Mg/2 Ml Vial) 4 mg IVPUSH Q8H PRN PRN Reason: Nausea and Vomiting Last Admin: 12/01/24 15:42 Dose: 4 mg Documented By: ABBY Prednisone (Prednisone 20 Mg Tablet) 40 mg PO DAILY [facility] Last Admin: 12/05/24 08:00 Dose: 40 mg Documented By: JEANNIE Pregabalin (Pregabalin 75 Mg Capsule) 75 mg PO DAILY [facility] Last Admin: 12/05/24 08:01 Dose: 75 mg Documented By: JEANNIE Sodium Chloride (0.9 % Sodium Chloride Flush 3 Ml Syringe) 3 ml IVFLUSH QSHIFT [facility] Last Admin: 12/05/24 07:55 Dose: 3 ml Documented By: JEANNIE Tamsulosin HCl (Tamsulosin Hcl 0.4 Mg Capsule) 0.4 mg PO DAILY [facility] Last Admin: 12/05/24 08:01 Dose: 0.4 mg Documented By: ELIZAIC Labs 12/03/24 07:24 12/03/24 09:14 Microbiology Microbiology Results: Microbiology 11/29/24 13:32 Blood Culture - Final Blood - Venous No growth after 5 days. 11/29/24 13:27 Blood Culture - Final Blood - Venous No growth after 5 days. Assessment and Plan (1) Encephalopathy acute: Status: Acute (2) Elevated brain natriuretic peptide (BNP) level: Status: Acute (3) Metabolic encephalopathy: Status: Acute (4) Elevated beta-hydroxybutyrate: Status: Acute (5) Aspiration pneumonia: Status: Acute (6) Acute and chronic respiratory failure: Status: Acute Plan Patient is a 79-year-old male with a past medical history significant for spontaneous pneumothorax, chronic respiratory failure due to COPD on oxygen (~4L), HLD, BPH, chronic back pain on fentanyl patch and liquid morphine, arthritis, and a history of substance use disorder (cocaine), who arrived at the ED via EMS from home after being found unresponsive by friends. Workup in the ED revealed an elevated WBC of 18.5, and BNP of 964, without findings of pulmonary edema or lower extremity edema. He as admitted for management of sepsis, aspiration pneumonia and metabolic encephalopathy Sepsis with acute on chronic respiratory failure secondary to suspected aspiration pneumonia, as evidenced by CXR and CT. This was complicated by acute hypoxia and encephalopathy. He was treated with Unasyn from 11/29 to 12/05 and is now being transitioned to oral Augmentin to complete a total 10-day course. A repeat CXR showed improvement in the pneumonia. Cultures have been negative. Overall, the patient has improved. Oxygen has been weaned down to 2L with saturation of 94%. COPD with acute exacerbation with acute on chronic respiratory failure. treated with IV steroid, bronchodilators and will transition to oral Prednisone 40 mg x 5 days, then chronic steroid of 10 mg dialy Acute metabolic/toxic encephalopathy related to the above and possibly medication-related, given the use of fentanyl, oxycodone, and benzodiazepines. Encephalopathy has resolved, and the patient is now at baseline mental status. Elevated troponin, consistent with Type 2 [place] in the setting of sepsis, acute respiratory distress, and hypoxia. Elevated BNP No formal diagnosis of CHF. Some rales noted on exam and trace bilateral leg edema. Echo from 02/2024 shows normal EF. BNP on 12/03: 134. Received IV Lasix x1 on 12/03. Currently appears euvolemic. Chronic macrocytic anemia Stable and chronic. Continue to monitor CBC. Microscopic hematuria UA negative for infection. Abdominal CT negative. To follow up with PCP. Elevated beta-hydroxybutyrate, but no acidosis Glucose is normal. A1C: 5.5 Code status: Full code VTE prophylaxis: Lovenox HCP requests that the patient remain full code. Will continue to reassess status if no improvement. Hospice team plans for continued hospice care at home after discharge. Discussed the need to reduce home narcotic and sedative medications. Patient wants to remain full code at discharge to short-term rehab. Need for inpatient stay: Acute hypoxic respiratory failure Aspiration pneumonia Hypoxia requiring IV antibiotics Quality Stroke Does the patient have a stroke diagnosis?: No VTE Prior VTE?: No VTE Risk Level:: Medical - moderate - high VTE Device Contraindication: Treatment Not Indicated VTE Drug Contraindication: N/A - Med Ordered
--- NOTE | 2024-12-05 10:51 | PC.NURSE ---
Pt/HCP does not want to go to [facility]. Plan to go home today, resume Hospice tomorrow.
[2024-12-05 11:33] VITALS: PULSE 72; RESP 18; O2SAT 96
[2024-12-05] MEDS: fentaNYL 100 MCG PATCH.TD72 TRANSDERMA (12:55)
[2024-12-05 13:58] VITALS: BP 124/58; PULSE 75; RESP 18; TEMP 37.1; O2SAT 93
[2024-12-07 12:57] LABS: Lorazepam, Urine >500
== END 2024-12-05 14:26 | disposition skilled nursing facility (03) | DRG 871 ==
LOC: HO.ED 17:40 → HO.EDOVER 21:58 → HO.S3 11-30 16:13
PROVIDERS: Student in an Organized Health Care Education/Training Program; Admitting Provider Physician Assistant; Emergency Provider Emergency Medicine Emergency Medical Services; PCP Family Medicine; Visit Provider Internal Medicine
DX: A41.9 Sepsis, unspecified organism (principal); G92.8 Other toxic encephalopathy; J69.0 Pneumonitis due to inhalation of food and vomit; J96.21 Acute and chronic respiratory failure with hypoxia; I21.A1 Myocardial infarction type 2; J44.1 Chronic obstructive pulmonary disease with (acute) exacerbation; R31.29 Other microscopic hematuria; Z51.5 Encounter for palliative care; D53.9 Nutritional anemia, unspecified; E78.5 Hyperlipidemia, unspecified; N40.0 Benign prostatic hyperplasia without lower urinary tract symptoms; M54.59 Other low back pain; G89.29 Other chronic pain; Z99.81 Dependence on supplemental oxygen; Z20.822 Contact with and (suspected) exposure to COVID-19; Z87.891 Personal history of nicotine dependence; Z79.01 Long term (current) use of anticoagulants; Z79.891 Long term (current) use of opiate analgesic; Z79.899 Other long term (current) drug therapy
CPT/HCPCS: 0241U; 36415; 36600; 70450; 71045; 71260; 72125; 74177; 80048; 80053; 80307; 80346; 81001; 82010; 82248; 82550; 82607; 82746; 82803; 82947; 83036; 83605; 83690; 83735; 83880; 84443; 84484; 85025; 85610; 85730; 87040; 92526; 92610; 93005; 94640; 97162; 99285; J0131; J0295; J1650; J1940; J2060; J2250; J2270; J2405; J2543; J2919; J3411; J7120; Q9967

== ENCOUNTER → 2024-11-29 13:15 | Outpatient (BNV) | payer MEDICARE, MEDICAID, SELFPAY | PROVIDERS: Emergency Provider Emergency Medicine Emergency Medical Services; PCP Family Medicine; Visit Provider Internal Medicine Cardiovascular Disease | DX: R00.0 Tachycardia, unspecified (principal) | CPT/HCPCS: 93010 ==

== ENCOUNTER → 2024-11-29 13:16 | Outpatient (BNV) | payer MEDICARE, MEDICAID, SELFPAY | PROVIDERS: Emergency Provider Emergency Medicine Emergency Medical Services; PCP Family Medicine; Visit Provider Radiology Diagnostic Radiology | DX: R10.9 Unspecified abdominal pain (principal); J18.9 Pneumonia, unspecified organism; R41.82 Altered mental status, unspecified; J92.9 Pleural plaque without asbestos; M47.812 Spondylosis without myelopathy or radiculopathy, cervical region | CPT/HCPCS: 70450; 71260; 72125; 74177 ==

== ENCOUNTER 2024-11-29 21:35 | Outpatient (BNV) | payer MEDICARE, SELFPAY | END 2024-11-30 | PROVIDERS: Admitting Provider Physician Assistant; Emergency Provider Emergency Medicine Emergency Medical Services; PCP Family Medicine; Visit Provider Internal Medicine Cardiovascular Disease | DX: R00.0 Tachycardia, unspecified (principal); R94.31 Abnormal electrocardiogram [ECG] [EKG] | CPT/HCPCS: 93010 ==

== ENCOUNTER 2024-11-29 21:35 | Outpatient (BNV) | payer MEDICARE, MEDICAID, SELFPAY | END 2024-12-03 08:00 | PROVIDERS: Admitting Provider Physician Assistant; Emergency Provider Emergency Medicine Emergency Medical Services; PCP Family Medicine; Visit Provider Radiology Diagnostic Radiology | DX: J18.9 Pneumonia, unspecified organism (principal) | CPT/HCPCS: 71045 ==

== ENCOUNTER → 2024-11-29 21:35 | Outpatient (BNV) | payer MEDICARE, MEDICAID, SELFPAY | PROVIDERS: Admitting Provider Physician Assistant; Emergency Provider Emergency Medicine Emergency Medical Services; PCP Family Medicine; Visit Provider Student in an Organized Health Care Education/Training Program | DX: G93.40 Encephalopathy, unspecified (principal); R79.89 Other specified abnormal findings of blood chemistry; G93.41 Metabolic encephalopathy; R78.89 Finding of other specified substances, not normally found in blood; J69.0 Pneumonitis due to inhalation of food and vomit; J96.20 Acute and chronic respiratory failure, unspecified whether with hypoxia or hypercapnia | CPT/HCPCS: 99223; 99232; 99233; 99499 ==

== ENCOUNTER 2025-05-30 13:27 | Outpatient (AMB) | payer MEDICARE, SELFPAY ==
--- OUTSIDE RECORDS SUMMARY | 2024-01-14 13:30 | XMS_ITS ---
Author Organization Salbador Ybarra III, MD Address [address] [place] [address] Care Team Providers Care Construction Helper Name Role Phone Nikita Rivera MD Primary Care Provider Unavailab Dr. Salbador Fuentes III Unavailable Allergies Allergen (clinical drug ingredient) Drug/Non Drug Allergy documented on EMR Reaction Allergy Type Onset Date Status No Known Drug Allergy Unknown Drug Allergy Active REASON FOR VISIT Followup Medications Medication SIG (Take, Route, Frequency, Duration) Notes Start Date End Date Status Lipitor 10 MG 1 tablet Orally Once a day Active Vitamin B-6 50 MG TAKE ONE TABLET BY M OUTH EVERY DAY Active Ventolin HFA 108 (90 Base) MCG/ACT 2 puffs as needed Inhalation every 4 hrs 10/14/2014 Active Advair Diskus 250-50 MCG/DOSE 1 puff Inhalation Twice a day 10/14/2014 Active fentaNYL 100 MCG/HR 1 patch to the skin Transdermal Active Pregabalin 75 MG 1 capsule Orally Twi ce a day Active Trelegy Ellipta 100-62.5-25 MCG/ACT 1 puff Inhalation Once a day Active Theophylline ER 400 MG 1 tablet Orally O nce a day Active Social History Tobacco Use: Social History Observation Description Date Details (start date - stop date) Former Smoker NA - NA Sex Assigned At : Social History Observation Description Sex Assigned At Male Tobacco Use/Smoking Question Answer Notes Patient is a former smoker How long has it been since you last smoked? 1-5 years Additional Findings: Tobacco Non-User Ex-cigaret te smoker Encounters Encounter Location Date Provider Diagnosis Salbador Ybarra III, MD [address] [place] [address] [address] [place], [place] [address] 01/14/2024 Salbador Ybarra Myelodysplastic syndrome, unspecified D46.9 Assessments Encounter Date Diagnosis (ICD Code) Assessment Notes Treat ment Notes Treatment Clinical Notes 01/14/2024 Myelodysplastic syndrome, unspecified (ICD-10 - D46.9) His mean cell volume remains stable at 109. No change in his blood work has been noted. Current therapy was continued. Plan Of Treatment Medication Medication Name Sig Start Date Stop Date Notes Lipitor 10 MG 1 tablet Orally Once a day Vitamin B-6 50 MG TAKE ONE TABLET BY M OUTH EVERY DAY Ventolin HFA 108 (90 Base) MCG/ACT 2 puffs as needed Inhalation every 4 hrs 10/14/2014 Advair Diskus 250-50 MCG/DOSE 1 puff Inh alation Twice a day 10/14/2014 fentaNYL 100 MCG/HR 1 patch to the skin Transdermal Pregabalin 75 MG 1 capsule Orally Twice a day Trelegy Ellipta 100-62.5-25 MCG/ACT 1 puff Inhalation Once a day Theophylline ER 400 MG 1 tablet Orally Once a day Progress Notes * Usman MCCLELLANDpengDOB:1944 (79 yo M)Acc No.[id number]:01/14/2024 Progress Notes Patient: Jordy CROSS Provider: Aubrey Ybarra MD :1945 A ge:78 Y S ex:Male Date:01/14/2024 Address:[address] [place], [place] [id number] Pcp:Nikita Rivera MD Subjective: * Chief Complaints: * 1 . Followup. * HPI: C OVID-19 Screening: Questions H ave you had any new onset fever, chills, cough, congestion, sore throat, shortness of breath, muscle aches? N o H ave you been exposed to the virus within the last 10 days? N o H ave you travelled internationally in the last 10 days? N o H ave you been exposed to COVID-19 in the past? N o * ROS: G eneral/Constitutional: pain o nly normal aches and pains. C hills d enies.?Fatigue a dmits. F ever d enies. E NT: Decreased hearing d enies. R espiratory: Cough d enies. C ardiovascular: Chest pain with exertion d enies. D yspnea on exertion?denies. S hortness of breath d enies. G astrointestinal: Constipation d enies. D ecreased appetite d enies.?Diarrhea d enies. H eartburn d enies. N ausea d enies. R ectal bleeding?denies. V omiting d enies. H ematology: bruising d enies. p etechiae d enies. S wollen glands n one have been noted. G enitourinary: Frequent urination d enies. M usculoskeletal: Muscle aches d enies. P ainful joints d enies. S ciatica d enies. W eakness d enies. S kin: Itching d enies. R compa d enies. S kin lesion(s)?denies. N eurologic: Difficulty speaking d enies. D izziness d enies.?Headache d enies. L ow back pain d enies. P sychiatric: Depressed mood d enies. 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 * Surgical History: b owel resection for diverticulitis 2001. * Hospitalization/Major Diagno stic Procedure: D enies Past Hospitalization. * Family History: F ather: 60 yrs, sucide. M other: 85 yrs. S iblings: 1 brother alive, 1 brother . The family history is unremakable for anemia. He is not aware of any family history of mental illness other than his father's suicide or substance use disorder or addition. * Social History: T obacco Use: T obacco Use/Smoking P atient is a f ormer smoker H ow long has it been since you last smoked??1-5 years A dditional Findings: Tobacco Non-User E x-cigarette smoker Edson sotelo was born in [place], [place]. 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 He has 2 children and 2 grandchildren. * Medications: T aking Pregabalin 75 MG Capsule 1 capsule Orally Twice a day , Taking Theophylline ER 400 MG Tablet Extended Release 24 Hour 1 tablet Orally Once a day , Taking Trelegy Ellipta 100-62.5-25 MCG/ACT Aerosol Powder Breath Activated 1 puff Inhalation Once a day , Taking Lipitor 10 MG Tablet 1 tablet Orally Once a day , Taking fentaNYL 100 MCG/HR Patch 72 Hour 1 patch to the skin Transdermal , Taking Advair Diskus 250- 50 MCG/DOSE Aerosol Powder Breath Activated 1 puff Inhalation Twice a day , Taking Ventolin HFA 108 (90 Base) MCG/ACT Aerosol Solution 2 puffs as needed Inhalation every 4 hrs , Taking Vitamin B-6 50 MG Tablet TAKE ONE TABLET BY MOUTH EVERY DAY , Discontinued predniSONE 10 MG Tablet 1 tablet Orally Once a day , Discontinued CeleBREX 100 MG Capsule 1 capsule Orally Once a day , Medication List reviewed and reconciled with the patient * Allergies: N o Known Drug Allergy. Objective: * Vitals: * Examination: G eneral Examination: GENERAL APPEARANCE: p leasant, well nourished, well developed, in no acute distress, calm and relaxed. HEAD: a traumatic, normocephalic. EYES: e sudha, perrla, anicteric, conjugate. EARS: n ormal. NOSE: s eptum intact. ORAL CAVITY: n ormal, unremarkable. NECK/THYROID: n o jugular venous distention, no carotid bruit, thyroid normal. LYMPH NODES: n o enlarged lymph nodes,spleen normal. SKIN: n o suspicious lesions, anicteric. HEART: n o clicks, gallops, murmurs, or rubs, regular rhythm, S1, S2 normal, no s3, or vascular bruits. LUNGS: c lear to auscultation . BREASTS: no masses palpable bilaterally. ABDOMEN: b owel sounds normal, no ascites, no organomegaly, no mass. RECTAL EXAM: n ot examined. MUSCULOSKELETAL: e xtremities unremarkable, no clubbing, cyanosis or edema. PERIPHERAL PULSES: n ormal. NEUROLOGIC: a lert and oriented, cranial nerves 2-12 grossly intact, deep tendon reflexes 2+ symmetrical, motor strength normal upper and lower extremities, sensory exam intact. PSYCH: a lert, oriented. Assessment: * Assessment: Sherly. Freddy yelodysplastic syndrome, unspecified - D46.9 N otes :His mean cell volume remains stable at 109. No change in his blood work has been noted. Current therapy was continued. Plan: * Treatment: * Images: * The named appointment provid er may or may not be the originator of this progress note, and it is not deemed complete until electronically signed by the appointment provider. Sign off status: Pending * Provider: Aubrey Ybarra MD Date: 0 01/14/2024 Generated for Balaji ng/Josh/Geovannasmitting on: 03:51 PM EDT History and Physical Notes * HPI (History of Present Illness) Category Sub-Category Detail Notes COVID-19 Screening Questions Have you had any new onset fever, chills, cough, congestion, sore throat, shortness of breath, muscle aches?: No Have you been exposed to the virus withi n the last 10 days?: No Have you travelled internationally in e last 10 days?: No Have you been exposed to COVID-19 in the past?: No Examination Category Sub-Category Detail Notes General Examination GENERAL APPEARANCE: pleasant , well nourished, well developed, in no acute distress, calm and relaxed HEAD: atraumatic, normocep halic EYES: eomi, perrla, anicte richie, conjugate EARS: normal NOSE: septum intact NECK/THYROID: no jugular venous di stention, no carotid bruit, thyroid normal HEART: no clicks, gallops, murmurs, or rubs, regular rhythm, S1, S2 normal, no s3, or vascular bruits LUNGS: clear to auscultatio n ABDOMEN: bowel sounds normal, no ascites, no organomegaly, no mass NEUROLOGIC: alert and oriented, cranial nerves 2-12 grossly intact, deep tendon reflexes 2+ symmetrical, motor strength normal upper and lower extremities, sensory exam intact SKIN: no suspicious lesion s, anicteric PERIPHERAL PULSES: normal BREASTS: no masses palpable b ilaterally MUSCULOSKELETAL: extremities unremark able, no clubbing, cyanosis or edema LYMPH NODES: no enlarged lymph no louisa,spleen normal RECTAL EXAM: not examined PSYCH: alert, oriented ORAL CAVITY: normal, unremarkable
--- OUTSIDE RECORDS SUMMARY | 2024-02-06 05:15 | XMS_ITS ---
Author Organization Salbador Ybarra III, MD Address [address] [place] [address] [place] [address] Care Team Providers Care Manager Bakery Name Role Phone Nikita Rivera MD Primary Care Provider Unavailab Dr. Salbador Fuentes III Unavailable [phone] Allergies Allergen (clinical drug ingredient) Drug/Non Drug Allergy documented on EMR Reaction Allergy Type Onset Date Status No Known Drug Allergy Unknown Drug Allergy Active REASON FOR VISIT Myelodysplastic syndrome, COPD, Osteoarthritis, Chronic kidney disease, Atrial fibrillation, Peripheral neuropathy Medications Medication SIG (Take, Route, Frequency, Duration) Notes Start Date End Date Status dilTIAZem HCl ER Coated Beads 240 MG TAKE 1 CAPSULE BY MOUTH EVERY DAY Oral Active Ventolin HFA 108 (90 Base) MCG/ACT 2 puffs as needed Inhalation every 4 hrs 10/14/2014 Active Advair Diskus 250-50 MCG/DOSE 1 puff Inhalation Twice a day 10/14/2014 Active fentaNYL 100 MCG/HR 1 patch to the skin Transdermal Active Lipitor 10 MG 1 tablet Orally Once a day Active Pregabalin 75 MG 1 capsule Orally Twi ce a day Active Eliquis 5 MG TAKE 1 TABLET BY LARRY TH TWICE A DAY Oral Active Vitamin B-6 50 MG TAKE ONE TABLET BY M OUTH EVERY DAY Active Trelegy Ellipta 100-62.5-25 MCG/ACT 1 puff Inhalation Once a day Active Social History Tobacco Use: Social History Observation Description Date Details (start date - stop date) Former Smoker NA - NA Sex Assigned At : Social History Observation Description Sex Assigned At Male Tobacco Use/Smoking Question Answer Notes Patient is a former smoker How long has it been since you last smoked? 1-5 years Additional Findings: Tobacco Non-User Ex-cigaret te smoker Problems Problem Type SNOMED Code ICD Code Onset Dates Problem Status W/U Status Risk Notes Problem [id number] Atrial fibrillation, unspecified type (I48.91) Active confirmed Vital Signs Temperature 98.3 degrees Fahrenheit 02/06/20 24 Blood pressure systolic 121 mm Hg 02/06/20 24 Blood pressure diastolic 80 mm Hg 024 Heart Rate 72 /min 02/06/2024 Height 72 in 02/06/2024 Weight 211 lbs 02/06/2024 BMI 28.61 kg/m2 02/06/2024 Encounters Encounter Location Date Provider Diagnosis Salbador Ybarra III, MD [address] [place] [address] [place] [address] 02/06/2024 Salbador Ybarra Myelodysplastic syndrome, unspecified D46.9 ; Overweight E66.3 ; Chronic obstructive pulmonary disease, unspecified J44.9 ; Polyosteoarthritis, unspecified M15.9 ; Former smoker Z87.891 ; Idiopathic peripheral neuropathy G60.9 and Atrial fibrillation, unspecified type I48.91 Assessments Encounter Date Diagnosis (ICD Code) Assessment Notes Treat ment Notes Treatment Clinical Notes 02/06/2024 Myelodysplastic syndrome, unspecified (ICD-10 - D46.9) His mean cell volume Is slowly increasing. No change in his blood work has been noted. Current therapy was continued. The vitamin B12 and folic acid levels are normal. 02/06/2024 Overweight (ICD-10 - E66.3) His body mass index is 28. He has lost 8 pounds. We reviewed his weight loss strategy. He will continue to lose weight at a rate of one half of a pound per week. 02/06/2024 Chronic obstructive pulmonary disease, unspecified (ICD-10 - J44.9) His COPD is stable and he is not wheezing at this time. He says he is not smoking. He denies any coughing or wheezing and shortness of breath is only with prolonged exertion. 02/06/2024 Polyosteoarthritis, unspecified (ICD-10 - M15.9) He has been continued on his chronic pain regimen by his primary care physician. 02/06/2024 Former smoker (ICD-1 0 - Z87.891) He is not smoking now and seems motivated to remain abstinent. We discussed a strategy to prevent relapse in the future. 02/06/2024 Idiopathic periphera l neuropathy (ICD-10 - G60.9) 02/06/2024 Atrial fibrillation, unspecified type (ICD-10 - I48.91) Plan Of Treatment Medication Medication Name Sig Start Date Stop Date Notes dilTIAZem HCl ER Coated Bead s 240 MG TAKE 1 CAPSULE BY MOUTH EVERY DAY Oral Ventolin HFA 108 (90 Base) MCG/ACT 2 puffs as needed Inhalation every 4 hrs 10/14/2014 Advair Diskus 250-50 MCG/DOSE 1 puff Inhalation Twice a da y 10/14/2014 fentaNYL 100 MCG/HR 1 patch to the skin Transdermal Lipitor 10 MG 1 tablet Orally Once a day Pregabalin 75 MG 1 capsule Orally Twice a day Eliquis 5 MG TAKE 1 TABLET BY LARRY TH TWICE A DAY Oral Vitamin B-6 50 MG TAKE ONE TABLET BY M OUTH EVERY DAY Trelegy Ellipta 100-62.5-25 MCG/ACT 1 puff Inhalation Once a day Pending Test Test Name Order Date CBC WITH AUTO DIFF 02/06/2024 Next Appt Details Follow Up: 2 Months, Reason: OV Progress Notes * Jordy MCCLELLANDDOB:1944 (78 yo M)Acc No.[id number]:02/06/2024 Progress Notes Patient: Heber saul Jordy Provider: Aubrey Ybarra MD :1945 A ge:78 Y S ex:Male Date:02/06/2024 Address:[address] [place] [id number] Pcp:Nikita Rivera MD Subjective: * Chief Complaints: * M yelodysplastic syndromeCOPDOsteoarthritisChronic kidney diseaseAtrial fibrillationPeripheral neuropathy * HPI: C OVID-19 Screening: He returns for surveillance and management of myelodysplastic syndrome. He was in [facility] in December 2023 for shortness of breath and dyspnea. He was found to be in atrial fibrillation and treated medically. He sees his payroll officer in February 2024. He has lost 9 pounds since his last visit. His blood work was reviewed with him in detail. Questions H ave you experienced fever, chills, cough, sore throat, shortness of breath, difficulty breathing, muscle aches, loss of taste or smell? N o H ave you been exposed to the virus within the last 10 days? N o H ave you travelled internationally in the last 10 days? N o H ave you been exposed to COVID-19 in the past? Y es * ROS: G eneral/Constitutional: pain o nly normal aches and pains. C hills d enies.?Fatigue a dmits. F ever d enies. E NT: Decreased hearing i n both ears. R espiratory: Cough d enies. C ardiovascular: Chest pain with exertion d enies. D yspnea on exertion?with prolonged activity. S hortness of breath t hat is moderate. G astrointestinal: Constipation o ccasional. D ecreased appetite d enies. D iarrhea d enies. H eartburn d enies. N ausea d enies. R ectal bleeding d enies. V omiting d enies. H ematology: bruising d enies. p etechiae d enies. S wollen glands n one have been noted. G enitourinary: Frequent urination o nce a night. M usculoskeletal: Muscle aches d enies. P ainful joints d enies. S ciatica d enies. W eakness d enies. S kin: Itching d enies. R compa d enies. S kin lesion(s)?denies. N eurologic: Difficulty speaking d enies. D izziness d enies.?Headache d enies. L ow back pain d enies. P sychiatric: Depressed mood d enies. * Medical History: * Surgical History: b owel resection for diverticulitis 2001 * Hospitalization/Major Diagno stic Procedure: D enies Past Hospitalization * Family History: F ather: 60 yrs, [...] dditional Findings: Tobacco Non-User E x-cigarette smoker H e was born in [place], [place]. 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 He has 2 children and 2 grandchildren. * Medications: T akingPregabalin 75 MG Capsule 1 capsule Orally Twice a dayTrelegy Ellipta 100-62.5-25 MCG/ACT Aerosol Powder Breath Activated 1 puff Inhalation Once a dayLipitor 10 MG Tablet 1 tablet Orally Once a dayfentaNYL 100 MCG/HR Patch 72 Hour 1 patch to the skin Transdermal Advair Diskus 250-50 MCG/DOSE Aerosol Powder Breath Activated 1 puff Inhalation Twice a dayVentolin HFA 108 (90 Base) MCG/ACT Aerosol Solution 2 puffs as needed Inhalation every 4 hrsVitamin B-6 50 MG Tablet TAKE ONE TABLET BY MOUTH EVERY DAY Eliquis 5 MG Tablet TAKE 1 TABLET BY MOUTH TWICE A DAY Oral dilTIAZem HCl ER Coated Beads 240 MG Capsule Extended Release 24 Hour TAKE 1 CAPSULE BY MOUTH EVERY DAY Oral Taking Pregabalin 75 MG Capsule 1 capsule Orally Twice a dayTaking Trelegy Ellipta 100-62.5-25 MCG/ACT Aerosol Powder Breath Activated 1 puff Inhalation Once a dayTaking Lipitor 10 MG Tablet 1 tablet Orally Once a dayTaking fentaNYL 100 MCG/HR Patch 72 Hour 1 patch to the skin Transdermal Taking Advair Diskus 250-50 MCG/DOSE Aerosol Powder Breath Activated 1 puff Inhalation Twice a dayTaking Ventolin HFA 108 (90 Base) MCG/ACT Aerosol Solution 2 puffs as needed Inhalation every 4 hrsTaking Vitamin B-6 50 MG Tablet TAKE ONE TABLET BY MOUTH EVERY DAY Taking Eliquis 5 MG Tablet TAKE 1 TABLET BY MOUTH TWICE A DAY Oral Taking dilTIAZem HCl ER Coated Beads 240 MG Capsule Extended Release 24 Hour TAKE 1 CAPSULE BY MOUTH EVERY DAY Oral DiscontinuedTheophylline ER 400 MG Tablet Extended Release 24 Hour 1 tablet Orally Once a dayMedication List reviewed and reconciled with the patientDiscontinued Theophylline ER 400 MG Tablet Extended Release 24 Hour 1 tablet Orally Once a dayMedication List reviewed and reconciled with the patient * Allergies: N o Known Drug Allergyno[Allergies Verified] Objective: * Vitals: H t: 72, Wt:211, BMI:28.61, BP:121/80, HR:72, Temp:98.3, Wt-k.71. * P ast Orders: Lab:Comprehensive Met. Panel * Order Date 02/03/2024 01/03/2023 08/30/2022 Sodium 145 (Ref Range: 135-145 mmol/L) 139 (Ref Range: 135-145 mmol/L) 140 (Ref Range: 135-145 mmol/L) Bilirubin Total 0.3 (Ref Range: 0.0-1.0 mg/dL) 0.8 (Ref Range: 0.0-1.0 mg/dL) 0.6 (Ref Range: 0.0-1.0 mg/dL) Aspartate Amino Transferase 19 (Ref Range: 5-37 U/L) 27 (Ref Range: 5-37 U/L) 20 (Ref Range: 5-37 U/L) Alanine Aminotransferase 26 (Ref Range: 0-40 U/L) 28 (Ref Range: 0-40 U/L) 18 (Ref Range: 0-40 U/L) Total Protein 6.4 L (Ref Range: 6.5-8.0 g/dL) 6.6 (Ref Range: 6.5-8.0 g/dL) 6.9 (Ref Range: 6.5-8.0 g/dL) Albumin Level 3.7 (Ref Range: 3.5-5.0 g/dL) 4.1 (Ref Range: 3.5-5.0 g/dL) 4.3 (Ref Range: 3.5-5.0 g/dL) Alkaline Phosphatase 59 (Ref Range: 39-117 U/L) 58 (Ref Range: 39-117 U/L) 67 (Ref Range: 39-117 U/L) Potassium 4.7 (Ref Range: 3.3-5.1 mmol/L) 4.6 (Ref Range: 3.3-5.1 mmol/L) 4.4 (Ref Range: 3.3-5.1 mmol/L) Chloride 106 (Ref Range: 96-108 mmol/L) 104 (Ref Range: 96-108 mmol/L) 103 (Ref Range: 96-108 mmol/L) Carbon Dioxide 31 H (Ref Range: 22-29 mmol/L) 29 (Ref Range: 22-29 mmol/L) 29 (Ref Range: 22-29 mmol/L) Anion Gap 13 (Ref Range: 12-20) 11 L (Ref Range: 12-20) 12 (Ref Range: 12-20) Blood Urea Nitrogen 17 H (Ref Range: 9-16 mg/dL) 17 H (Ref Range: 9-16 mg/dL) 17 H (Ref Range: 9-16 mg/dL) Creatinine 0.83 (Ref Range: 0.5-1.4 mg/dL) 1.10 (Ref Range: 0.5-1.4 mg/dL) 1.10 (Ref Range: 0.5-1.4 mg/dL) Estimated Glomerular Filt Rate > 60 > 60 > 60 Glucose Random 94 (Ref Range: 60-115 mg/dL) 123 H (Ref Range: 60-115 mg/dL) 116 H (Ref Range: 60-115 mg/dL) Calcium 9.1 (Ref Range: 8.4-10.2 mg/dL) 8.9 (Ref Range: 8.4-10.2 mg/dL) 9.6 (Ref Range: 8.4-10.2 mg/dL) * Lab:RETIC * Order Date 02/03/2024 09/10/2023 01/03/2023 Reticulocytes Absolute 0.118 H (Ref Range: 0.026-0.095 X10*6/uL) 0.051 (Ref Range: 0.026-0.095 X10*6/uL) 0.024 L (Ref Range: 0.026-0.095 X10*6/uL) Immature Retic Fraction 31.8 H (Ref Range: 2.3-13.4 %) 26.7 H (Ref Range: 2.3-13.4 %) 18.9 H (Ref Range: 2.3-13.4 %) Retic HGB Equivalent 32.6 (Ref Range: 30.0-35.0 pg) 37.4 H (Ref Range: 30.0-35.0 pg) 38.4 H (Ref Range: 30.0-35.0 pg) Reticulocyte Percent 4.2 H (Ref Range: 0.5-1.8 %) 1.7 (Ref Range: 0.5-1.8 %) 0.9 (Ref Range: 0.5-1.8 %) * Lab:Complete Blood Count Aut o Diff * Order Date 02/03/2024 09/10/2023 07/11/2023 White Blood Count 4.9 (Ref Range: 4.8-10.8 X10*3/uL) 6.8 (Ref Range: 4.8-10.8 X10*3/uL) 17.6 H (Ref Range: 4.8-10.8 X10*3/uL) Red Blood Count 2.78 L (Ref Range: 4.60-5.80 X10*6/uL) 3.02 L (Ref Range: 4.60-5.80 X10*6/uL) 3.40 L (Ref Range: 4.60-5.80 X10*6/uL) Hemoglobin 9.8 L (Ref Range: 14.0-18.0 g/dl) 11.0 L (Ref Range: 14.0-18.0 g/dl) 12.3 L (Ref Range: 14.0-18.0 g/dl) Hematocrit 30.8 L (Ref Range: 42.0-52.0 %) 33.0 L (Ref Range: 42.0-52.0 %) 36.7 L (Ref Range: 42.0-52.0 %) Mean Corpuscular Volume 110.8 H (Ref Range: 80.0-98.0 fL) 109.3 H (Ref Range: 80.0-98.0 fL) 107.9 H (Ref Range: 80.0-98.0 fL) Mean Corpuscular Hemoglobin 35.3 H (Ref Range: 27.0-33.0 pg) 36.4 H (Ref Range: 27.0-33.0 pg) 36.2 H (Ref Range: 27.0-33.0 pg) Mean Corpuscular HGB Conc 31.8 (Ref Range: 31.0-36.0 g/dl) 33.3 (Ref Range: 31.0-36.0 g/dl) 33.5 (Ref Range: 31.0-36.0 g/dl) Red Cell Distribution Width 18.1 H (Ref Range: 11.0-16.0 %) 15.9 (Ref Range: 11.0-16.0 %) 16.9 H (Ref Range: 11.0-16.0 %) Platelet Count 217 (Ref Range: 160-400 X10*3/uL) 228 (Ref Range: 160-400 X10*3/uL) 232 (Ref Range: 160-400 X10*3/uL) Mean Platelet Volume 10.5 (Ref Range: 9.4-12.4 fL) 10.9 (Ref Range: 9.4-12.4 fL) 11.0 (Ref Range: 9.4-12.4 fL) Neutrophils Percent Auto 56.5 (Ref Range: 45-73 %) 81.1 H (Ref Range: 45-73 %) 90.4 H (Ref Range: 45-73 %) Imm Gran Pct Auto 1.0 H (Ref Range: 0.0-0.4 %) 0.9 H (Ref Range: 0.0-0.4 %) 0.8 H (Ref Range: 0.0-0.4 %) Lymphocytes Percent Auto 28.3 (Ref Range: 20-40 %) 11.9 L (Ref Range: 20-40 %) 2.9 L (Ref Range: 20-40 %) Monocytes Percent Auto 7.1 (Ref Range: 2-11 %) 4.5 (Ref Range: 2-11 %) 5.4 (Ref Range: 2-11 %) Eosinophils Percent Auto 6.5 H (Ref Range: 0-4 %) 0.6 (Ref Range: 0-4 %) 0.1 (Ref Range: 0-4 %) Basophils Percent Auto 0.6 (Ref Range: 0-2 %) 1.0 (Ref Range: 0-2 %) 0.4 (Ref Range: 0-2 %) NRBC Pct Auto 0.0 (Ref Range: 0.0-0.2 /100WBC) 0.3 H (Ref Range: 0.0-0.2 /100WBC) 0.2 (Ref Range: 0.0-0.2 /100WBC) Neutrophils Absolute Auto 2.8 (Ref Range: 2.0-8.3 x10*3/uL) 5.5 (Ref Range: 2.0-8.3 x10*3/uL) 15.9 H (Ref Range: 2.0-8.3 x10*3/uL) Imm Gran Abs Auto 0.05 H (Ref Range: 0.00-0.03 X10*3/uL) 0.06 H (Ref Range: 0.00-0.03 X10*3/uL) 0.14 H (Ref Range: 0.00-0.03 X10*3/uL) Lymphocytes Absolute Auto 1.4 (Ref Range: 1.2-4.9 X10*3/uL) 0.8 L (Ref Range: 1.2-4.9 X10*3/uL) 0.5 L (Ref Range: 1.2-4.9 X10*3/uL) Monocytes Absolute Auto 0.4 (Ref Range: 0.1-1.2 X10*3/uL) 0.3 (Ref Range: 0.1-1.2 X10*3/uL) 1.0 (Ref Range: 0.1-1.2 X10*3/uL) Eosinophils Absolute Auto 0.3 (Ref Range: 0.0-0.4 X10*3/uL) 0.0 (Ref Range: 0.0-0.4 X10*3/uL) 0.0 (Ref Range: 0.0-0.4 X10*3/uL) Basophils Absolute Auto 0.0 (Ref Range: 0.0-0.2 X10*3/uL) 0.1 (Ref Range: 0.0-0.2 X10*3/uL) 0.1 (Ref Range: 0.0-0.2 X10*3/uL) NRBC Abs Auto 0.000 (Ref Range: 0.0-0.012 X10*3/uL) 0.020 H (Ref Range: 0.0-0.012 X10*3/uL) 0.030 H (Ref Range: 0.0-0.012 X10*3/uL) * Examination: G eneral Examination: GENERAL APPEARANCE: p leasant, well nourished, well developed, in no acute distress, calm and relaxed , overweight , man. HEAD: a traumatic, normocephalic. EYES: e sudha, perrla, anicteric, conjugate. EARS: n ormal. NOSE: s eptum intact. ORAL CAVITY: n ormal, unremarkable. NECK/THYROID: n o jugular venous distention, no carotid bruit, thyroid normal. LYMPH NODES: n o enlarged lymph nodes,spleen normal. SKIN: n o suspicious lesions, anicteric. HEART: n o clicks, gallops, murmurs, or rubs, irregular rhythm, S1, S2 normal, no s3, or vascular bruits. LUNGS: c lear to auscultation . BREASTS: no masses palpable bilaterally. ABDOMEN: b owel sounds normal, no ascites, no organomegaly, no mass , overweight. RECTAL EXAM: n ot examined. MUSCULOSKELETAL: e xtremities unremarkable, no clubbing, cyanosis or edema. PERIPHERAL PULSES: n ormal. NEUROLOGIC: a lert and oriented, cranial nerves 2-12 grossly intact, deep tendon reflexes 2+ symmetrical, motor strength normal upper and lower extremities, sensory exam intact. PSYCH: a lert, oriented. Assessment: * Assessment: 1. M yelodysplastic syndrome, unspecified - D46.9 (Primary), His mean cell volume Is slowly increasing. No change in his blood work has been noted. Current therapy was continued. The vitamin B12 and folic acid levels are normal. 2 . O verweight - E66.3, His body mass index is 28. He has lost 8 pounds. We reviewed his weight loss strategy. He will continue to lose weight at a rate of one half of a pound per week. 3 . C hronic obstructive pulmonary disease, unspecified - J44.9, His COPD is stable and he is not wheezing at this time. He says he is not smoking. He denies any coughing or wheezing and shortness of breath is only with prolonged exertion. 4 . P olyosteoarthritis, unspecified - M15.9, He has been continued on his chronic pain regimen by his primary care physician. 5 . F ormer smoker - Z87.891, He is not smoking now and seems motivated to remain abstinent. We discussed a strategy to prevent relapse in the future. 6 . I diopathic peripheral neuropathy - G60.9 7 . A trial fibrillation, unspecified type - I48.91 Plan: * Treatment: 2. O verweight L AB: CBC WITH AUTO DIFF * Procedure Codes: * Preventive Medicine: COPD Care Plan: P atient Lifestyle Goals R elieve symptoms and improve quality of life, Reduce number of ED and hospitalizations, Be able to be more active with friends and family. T reatment Goals E at a nutritious diet and increase water consumption to 6-8 glasses a day, Eat 4- 5 small meals throughout the day. B arriers n o barriers. S elf-Managment Goals G et an air purifier for the rooms you are in the most, Eat a healthy diet, Exercise at least 3xs per week for at least 30 mins.? * Follow Up: 2 Months (Reason: OV) * Images: * Sign off status: Completed true * Provider: Aubrey Ybarra MD Date: 0 02/06/2024 Generated for Balaji cano/Josh/eTransmitting on: 1 03:51 PM EDT History and Physical Notes * HPI (History of Present Illness) Category Sub-Category Detail Notes COVID-19 Screening Questions Have you had any new onset fever, chills, cough, congestion, sore throat, shortness of breath, muscle aches?: No Have you been exposed to the virus withi n the last 10 days?: No Have you travelled internationally in [facility] last 10 days?: No Have you been exposed to COVID-19 in the past?: Yes Examination Category Sub-Category Detail Notes General Examination GENERAL APPEARANCE: pleasant , well nourished, well developed, in no acute distress, calm and relaxed , overweight , man HEAD: atraumatic, normocep halic EYES: eomi, perrla, anicte richie, conjugate EARS: normal NOSE: septum intact NECK/THYROID: no jugular venous di stention, no carotid bruit, thyroid normal HEART: no clicks, gallops, murmurs, or rubs, irregular rhythm, S1, S2 normal, no s3, or vascular bruits LUNGS: clear to auscultatio n ABDOMEN: bowel sounds normal, no ascites, no organomegaly, no mass , overweight NEUROLOGIC: alert and oriented, cranial nerves 2-12 [...]
--- OUTSIDE RECORDS SUMMARY | 2024-04-08 07:43 | XMS_ITS ---
Author Organization Salbador Ybarra III, MD Address [address] [place] [address] [place] [address] Care Team Providers Care Regulatory Affairs Strategy Specialist Name Role Phone Nikita Rivera MD Primary Care Provider Unavailab Dr. Salbador Fuentes III Unavailable REASON FOR VISIT Message Social History Sex Assigned At : Social History Observation Description Sex Assigned At Male Encounters Encounter Location Date Provider Diagnosis Salbador Ybarra III, MD [address] [place] [address] [place] [address] 04/08/2024 Salbador Ybarra Plan Of Treatment No Information Progress Notes * Jordy MCCLELLANDDOB:1944 (78 yo M)Acc No.[id number]:04/08/2024 Patient: Heber Jordy saul :1945 A ge:78 Y S ex:Male Address:[address] [place] [address] * true * Date: Generated for Printi ng/Faxing/eTransmitting on: 1 03:50 PM EDT
--- OUTSIDE RECORDS SUMMARY | 2024-04-09 13:15 | XMS_ITS ---
Author Organization Salbador Ybarra III, MD Address [address] [place] [address] Care Team Providers Care Drywall Taper Helper Name Role Phone Nikita Rivera MD Primary Care Provider Unavailab Dr. Salbador Fuentes III Unavailable Allergies Allergen (clinical drug ingredient) Drug/Non Drug Allergy documented on EMR Reaction Allergy Type Onset Date Status No Known Drug Allergy Unknown Drug Allergy Active REASON FOR VISIT Followup Medications Medication SIG (Take, Route, Frequency, Duration) Notes Start Date End Date Status Pregabalin 75 MG 1 capsule Orally Twi ce a day Active Trelegy Ellipta 100-62.5-25 MCG/ACT 1 puff Inhalation Once a day Active Lipitor 10 MG 1 tablet Orally Once a day Active fentaNYL 100 MCG/HR 1 patch to the skin Transdermal Active Advair Diskus 250-50 MCG/DOSE 1 puff Inhalation Twice a day 10/14/2014 Active dilTIAZem HCl ER Coated Beads 240 MG TAKE 1 CAPSULE BY MOUTH EVERY DAY Oral Active Ventolin HFA 108 (90 Base) MCG/ACT 2 puffs as needed Inhalation every 4 hrs 10/14/2014 Active Vitamin B-6 50 MG TAKE ONE TABLET BY M OUTH EVERY DAY Active Eliquis 5 MG TAKE 1 TABLET BY LARRY TH TWICE A DAY Oral Active Social History Tobacco Use: Social History [...] Date Provider Diagnosis Salbador Ybarra III, MD [address] [place] [address] DR TRAN KE[place], [place] [id number] 04/09/2024 Salbador Ybarra Myelodysplastic syndrome, unspecified D46.9 Assessments Encounter Date Diagnosis (ICD Code) Assessment Notes Treat ment Notes Treatment Clinical Notes 04/09/2024 Myelodysplastic syndrome, unspecified (ICD-10 - D46.9) His mean cell volume Is slowly increasing. No change in his blood work has been noted. Current therapy was continued. The vitamin B12 and folic acid levels are normal. Plan Of Treatment Medication Medication Name Sig Start Date Stop Date Notes Pregabalin 75 MG 1 capsule Orally Twice a day Trelegy Ellipta 100-62.5-25 MCG/ACT 1 puff Inhalation Once a day Lipitor 10 MG 1 tablet Orally Once a day fentaNYL 100 MCG/HR 1 patch to the skin Transdermal Advair Diskus 250-50 MCG/DOSE 1 puff Inhalation Twice a da y 10/14/2014 dilTIAZem HCl ER Coated Bead s 240 MG TAKE 1 CAPSULE BY MOUTH EVERY DAY Oral Ventolin HFA 108 (90 Base) MCG/ACT 2 puffs as needed Inhalation every 4 hrs 10/14/2014 Vitamin B-6 50 MG TAKE ONE TABLET BY M OUTH EVERY DAY Eliquis 5 MG TAKE 1 TABLET BY LARRY TH TWICE A DAY Oral Progress Notes * Jordy MCCLELLANDDOB:1944 (79 yo M)Acc No.[id number]:04/09/2024 Progress Notes Patient: Heber ALVAREZSISI Jordy Provider: Aubrey Ybarra MD :1945 A ge:78 Y S ex:Male Date:04/09/2024 Address:[address] [place] [address] [place] [id number] Pcp:Nikita Rivera MD Subjective: * Chief Complaints: [...] x-cigarette smoker Edson sotelo was born in [place], [place]. 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 He has 2 children and 2 grandchildren. * Medications: T aking Pregabalin 75 MG Capsule 1 capsule Orally Twice a day , Taking Trelegy Ellipta 100-62.5-25 MCG/ACT Aerosol Powder Breath Activated 1 puff Inhalation Once a day , Taking Lipitor 10 MG Tablet 1 tablet Orally Once a day , Taking fentaNYL 100 MCG/HR Patch 72 Hour 1 patch to the skin Transdermal , Taking Advair Diskus 250-50 MCG/DOSE Aerosol Powder Breath Activated 1 puff Inhalation Twice a day , Taking Ventolin HFA 108 (90 Base) MCG/ACT Aerosol Solution 2 puffs as needed Inhalation every 4 hrs , Taking Vitamin B-6 50 MG Tablet TAKE ONE TABLET BY MOUTH EVERY DAY , Taking Eliquis 5 MG Tablet TAKE 1 TABLET BY MOUTH TWICE A DAY Oral , Taking dilTIAZem HCl ER Coated Beads 240 MG Capsule Extended Release 24 Hour TAKE 1 CAPSULE BY MOUTH EVERY DAY Oral , Medication List reviewed and reconciled with [...] 1. M yelodysplastic syndrome, unspecified - D46.9 N otes :His mean cell volume Is slowly increasing. No change in his blood work has been noted. Current therapy was continued. The vitamin B12 and folic acid levels are normal. Plan: * Treatment: * Images: * The named appointment provid er may or may not be the originator of this progress note, and it is not deemed complete until electronically signed by the appointment provider. Sign off status: Pending * Provider: Aubrey Ybarra MD Date: 0 04/09/2024 Generated for Rejii ng/Josh/eTransmitting on: 1 03:49 PM EDT History and Physical Notes * HPI (History of Present Illness) Category Sub-Category Detail Notes COVID-19 Screening Questions Have you had any new onset fever, chills, cough, congestion, sore throat, shortness of breath, muscle aches?: No Have you been exposed to the virus withi n the last 10 days?: No Have you travelled internationally in [facility] last 10 days?: No Have you been exposed to COVID-19 in the past?: No Examination Category Sub-Category Detail Notes General Examination GENERAL APPEARANCE: pleasant , well nourished, well developed, in no acute distress, calm and relaxed HEAD: atraumatic, normocep halic EYES: eomi, perrla, anicte rcihie, conjugate EARS: normal NOSE: septum intact NECK/THYROID: [...]
--- OUTSIDE RECORDS SUMMARY | 2024-08-02 07:15 | XMS_ITS ---
Author Organization Salbador Ybarra III, MD Address [address] [place] [address] [place] [address] Care Team Providers Care Senior Portfolio Analyst Name Role Phone Nikita Rivera MD Primary Care Provider Unavailab Dr. Salbador Fuentes III Unavailable REASON FOR VISIT Refills Medications Medication SIG (Take, Route, Fr equency, Duration) Notes Start Date End Date Status Vitamin B-6 50 MG TAKE ONE TABLET BY M OUTH EVERY DAY Orally once a day for 90 days Ac tive Social History Sex Assigned At : Social History Observation Description Sex Assigned At Male Encounters Encounter Location Date Provider Diagnosis Salbador Ybarra III, MD [address] [place] [address] [place] [address] 08/02/2024 Salbador Ybarra Myelodysplastic syndrome, unspecified D46.9 Assessments Encounter Date Diagnosis (ICD Code) Assessment Notes Treat ment Notes Treatment Clinical Notes 08/02/2024 Myelodysplastic syndrome, unspecified (ICD-10 - D46.9) His mean cell volume Is slowly increasing. No change in his blood work has been noted. Current therapy was continued. The vitamin B12 and folic acid levels are normal. Plan Of Treatment Medication Medication Name Sig Start Date Stop Date Notes Vitamin B-6 50 MG TAKE ONE TABLET BY M OUTH EVERY DAY Orally once a day for 90 days Progress Notes * Jordy MCCLELLANDDOB:1944 (79 yo M)Acc No.[id number]:08/02/2024 Patient: Jordy CROSS :1945 A ge:79 Y S ex:Male Address:[address] [place] [phone] * Refills Refill Vitamin B-6 Tablet, 50 MG, Orally, 90, TAKE ONE TABLET BY MOUTH EVERY DAY, once a day, 90 days, Refills=9 * true * Date: Generated for Balaji cano/Josh/Geovannasmitting on: 1 03:50 PM EDT
--- NOTE | 2025-05-30 13:29 | A.OFFVIS_ITS ---
Intake Visit Reasons: Inj-Right shoulder Inj Intake Note: Jordy is a 77 year old right hand dominant male who presents today for a follow up of his bilateral shoulder OA. Right Shoulder was injection 12/31/24, Patient is unsure about previous injection, however he did complain of significant pain and would like to repeat injection today. Allergies No Known Allergies Allergy (Mild, Verified 05/30/25 13:37) NONE HPI HPI Inj-Right shoulder Inj: Details: Jordy is a 77 year old right hand dominant male who presents today for a follow up of his bilateral shoulder OA. Right Shoulder was injection 12/31/24, Patient is unsure about previous injection, however he did complain of significant pain and would like to repeat injection today. [facility] Medical History (Updated 12/13/24 @ 00:01 by Lona Umaña) Chronic anemia Atrial fibrillation with rapid ventricular response Chronic back pain HLD (hyperlipidemia) Osteoarthritis BPH (benign prostatic hyperplasia) Skin lesion of back Chronic obstructive pulmonary disease, unspecified Diverticulosis of large intestine without perforation or abscess without bl eeding 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 Surgical History History of excision of lesion (~04/17/23) History of repair of rotator cuff History of colon resection (~2001) Family History Mother Hypertension Father Hypertension Social History Household Members: Unknown / Unable to assess Housing: Unknown / Unable to assess Do you presently have visiting nurse or other home services: Yes Unable to assess alcohol history related to: Unable to respond Alcohol intake: never Comment: pt refusing alarms Patient Tobacco Use Status: Former Tobacco user Tobacco use type: Cigarette Advance Directives Date on File: 03/29/24 service: No Current occupational status: employed and retired 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 Site was prepped using aseptic technique. Patient tolerated the procedure well. Shoulders, Hips, Knees, Shoulder Injection Large joint : Right Shoulder Coding Procedure code (CPT) selection complete Assessment & Plan Assessment & Plan (1) Rotator cuff tear arthropathy of right shoulder: Code(s): M75.101 - Unspecified rotator cuff tear or rupture of right shoulder, not specified as traumatic; M12.811 - Other specific arthropathies, not elsewhere classified, right shoulder Category: Medical Plan: Injected right shoulder. Continue HEP. Coding Level of Care Code Est Pt Level 3 (23711) Diagnoses Rotator cuff tear arthropathy of right shoulder M75.101; M12.811 CPT Codes Shoulders, Hips, Knees, - Shoulder Injection Large joint : Right Shoulder ([id number])
--- OUTSIDE RECORDS SUMMARY | 2025-05-30 15:50 | XMS_ITS | Data Portability ---
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 Imaging None recorded. Medication Orders Lyrica 75 mg capsule 2023 024 [facility] #[id number], [address] [place], [address], 10:43:35 Trelegy Ellipta 100 mcg-62.5 mcg-25 mcg powder for inhalation 2023 024 [facility] #[id number], [address] [place], [address], 10:43:33 prednisone 10 mg tablet 2023 024 [id number] [address] [facility] [place], [address], 10:43:31 Lipitor 10 mg tablet 2023 024 [id number] [address] [facility] [place], [address], 10:43:32 Eliquis 5 mg tablet 2023 [id number] [address] [facility] [place], [address], 10:43:33 metoprolol tartrate 50 mg tablet 2023 024 [id number] [address] [facility] [place], [address], 10:43:32 Cardizem CD 120 mg capsule,ext ended release 2023 024 [id number] [address] [facility] [place], [address], 10:43:32 bupropion HCl SR 150 mg tablet,12 hr sustained-r elease 2023 024 [id number] [address] [facility] [place], [address], 10:43:31 fentanyl 100 mcg/hr transdermal patch 2023 [facility], [address] [place] [address], [address], [place], [address], 10:44:30 Patient TargetsNo targets recorded. Patient InstructionsNo instructions recorded. Reason for Referral None Reported. Problems Name Problem SNOMED Code Status Onset Date Resolution Date Notes Provider Name and Address Organization Details Recorded Time Atrial fibrillation 66629285 Active 2023 CONCHA CASTRO [address], [address], [place], [address], [facility] 4 11:35:25 Chronic obstructive pulmonary disease 45023085 Active 2023 CONCHA CASTRO [address], [address], [place], [address], [facility] 4 11:35:30 Right pneumothorax 481363799 Active 2023 CONCHA CASTRO [address], [address], [place], [address], [facility] 4 11:35:41 Myelodysplasti c syndrome (clinical) 676533162 Active [address], [place], [address], [facility] 4 11:36:04 Peripheral nerve disease 831761321 Active 2023 CONCHA CASTRO [address], [address], [place], [address], [facility] 4 11:36:18 Chronic back pain 047111317 Active 2023 CONCHA CASTRO [address], [address], [place], [address], [facility] 4 11:36:27 Essential hypertension 17688424 Active 2023 CONCHA CASTRO [address], [place], [address], [facility] 4 11:36:33 Hyperlipidemia 92748740 Active 2023 CONCHA CASTRO [address], [place], [address], [facility] 4 11:36:48 Vitamin deficiency 68839769 Active 2023 CONCHA CASTRO [address], [place], [address], [facility] 4 11:42:07 Constipation 93453865 Active 2023 CONCHA CASTRO [address], [address], [place], [address], [facility] [employer] [facility] 4 11:43:41 Depressive disorder 02287348 Active 2023 CONCHA CASTRO [address], [address], [place], [address], [facility] [employer] [facility] 4 11:44:50 Anemia 709764430 Active 2023 CONCHA CASTRO [address], [address], [place], [address], [facility] [employer] 4 11:54:09 Dysuria 16225436 Active 2023 Rebecca Nails [address], [address], [place], [address], [facility] [employer] [facility] 4 10:57:52 Benign prostatic hyperplasia 381535352 Active 2023 JACKELYN LO [address], [address], [place], [address], [facility] [employer] 4 12:36:37 Problem Notes None recorded. Medical [...] Not Available Not Available Not Avai lable atorvastatin 10 mg tablet TAKE ONE (1) TABLET BY MOUTH EVERY NIGHT AT BEDTIME active Not Available Not Available N ot Available fentanyl 100 mcg/hr transdermal patch Apply 1 [...] Not Avai lable Eliquis 5 mg tablet TAKE 1 TABLET BY MOUTH TWICE DAILY FOR AFIB active Not Available Not Available No t Available Trelegy Ellipta 100 mcg-62.5 mcg-25 mcg powder for inhalation Inhale 1 puff every day by inhalation route as directed for 30 days, for COPD. 2023 active Not Available Not Available Not Avai lable Vitals None Recorded Social History Question Answer Notes LastModified by Organizat ion Details LastModified Time Tobacco Smoking Status Former Smoker LEIDY ARIZMENDI, DORIS-C [address] [place] [address] [address], [address], [facility] 04/20/2024 11:52:35 Do You Have An Advance Directive? Yes Information not available 04/28/2024 What Is Your Code Status? Full Code Information not available 04/28/2024 How Much Tobacco Do You Smoke? 1 PPD Information not available 04/20/2024 How Many Years Have You Smoked Tobacco? 30 [email or web address] Information not available 04/20/2024 Sex: Unknown Functional [...] influenza, unspecified formulation 06/16/2021 completed Trell cancino [facility] 04/28/2024 15:40:18 influenza, unspecified formulation 06/13/2022 completed Trell cancino [facility] 04/28/2024 15:40:23 SARS-COV-2 (COVID-19) vaccine, UNSPECIFIED 10/04/2020 completed Trell Silva null, [facility] 04/28/2024 15:40:34 SARS-COV-2 (COVID-19) vaccine, UNSPECIFIED 11/09/2020 completed Trell Camilo-Veras null, [facility] 04/28/2024 15:40:41 SARS-COV-2 (COVID-19) vaccine, UNSPECIFIED 07/31/2021 completed Trell Camilo-Veras null, [facility] 04/28/2024 15:40:47 SARS-COV-2 (COVID-19) vaccine, UNSPECIFIED 02/05/2022 completed Trell Camilo-Veras null, [facility] 04/28/2024 15:40:55 SARS-COV-2 (COVID-19) vaccine, UNSPECIFIED 10/04/2022 completed Trell Camilo-Veras null, [facility] 04/28/2024 15:41:01 SARS-COV-2 (COVID-19) vaccine, UNSPECIFIED 09/03/2023 completed Trell Camilo-Veras null, [facility] 04/28/2024 15:41:09 zoster, unspecified formulation 07/15/2022 completed [facility] Edmundholly-Veras null, [facility] 04/28/2024 15:41:26 zoster, unspecified formulation 12/17/2022 completed Trell Edmundholly-Veras null, [facility] 04/28/2024 15:41:35 Past Encounters Encounter ID Performer Location Encounter Start Date Encounter Closed Date Diagnosis/Indication Diagnosis SNOMED-CT Code Diagnosis ICD10 Code Diagnosis IMO Codes Diagnosis Note [id number] CONCHA CASTRO AT [address] [address] 04/20/2024 10:48:45 04/23/2024 15:35:18 Chronic obstructive pulmonary disease 60730760 J44.9 on 4 L O2 at baselineCT A with ISLD and emphysema- albuterol q4h prn for sob-duoneb q6h prn for sob-treleg y inhaler daily Right pneumothorax 13292 3001 J93.9 recurrent on the right sidesp right side chest tube placement and bedside pleurodesi s on 04/09-fredrick nue to monitor resp status and CP-monitor SpO2-fredrick nue po prednisone taper, w/ decreasing dose of 10 mg every 3 days-f/up with pulm and thoracic surgery as planned Vitamin deficiency 60300 002 E56.9 carrying dx-choleca lciforal daily-MVD dailypyrox ine 50 mg daily Constipation 38105245 K5 9.00 on bowel reg-senna daily-nereyda tor BM Depressive disorder 3548 9007 F32.A -wellbutri n 150 mg h25i-gcfvd eval prn-monito r mood and affect Atrial fibrillation 4943 6004 I48.91 h/o PAF-eliqui s 5 mg po bid-dilt 120 mg daily-meto prolol 50 mg po bid-monito r HR and bleeding Peripheral nerve disease 198641627 G64 -lyrica 75 mg po daily Hyperlipidemia 88864524 E78.5 carrying dx-lipitor 10 mg po daily-lipi ds as needed Essential hypertension 49057454 I10 see plan for PAF-vitals qshift x 3 days, then daily Myelodyspl astic syndrome (clinical) 732556920 D46.9 carrying dx-fentany l patch 100 mcg/hr = replace [id number] done 10 mg q4h prn for mod-sev breakthrou gh pain-tylen ol 975 mg po TID scheduled Chronic back pain 637304 002 G89.29 -see above Anemia 246800331 D64.9 04/20 hgb 8.5 hct 26.5lower than baseline, likely in the setting of blood loss with recent chest tube-repea t CBC thurs to trend [id number] Rebecca ALVAREZLEY AT [address] [address] 04/26/2024 10:36:35 04/30/2024 10:10:28 Chronic obstructive pulmonary disease 02136844 J44.9 on 4 L O2 at baselineCT A with ISLD and emphysema- albuterol q4h prn for sob-duoneb q6h prn for sob-treleg y inhaler daily Right pneumothorax 81910 3001 J93.9 recurrent on the right sidesp right side chest tube placement and bedside pleurodesi s on 04/09-fredrick nue to monitor resp status and CP-monitor SpO2-fredrick nue po prednisone taper, w/ decreasing dose of 10 mg every 3 days, end date 05/02/24-f/u p with pulm and thoracic surgery as planned Essential hypertension 09547918 I10 BP at [facility] plan for PAFcardiac meds as above-jess ls qshift x 3 days, then daily Anemia 261406589 D64.9 hgb improved on 04/13/24, now 8.8lower than baseline, likely in the setting of blood loss with recent chest tubemonito r cbc weekly Dysuria 11059219 R30.0 see HPIpt reporting change in urine stream with some dysuria in the last 2 dayspt denies cloudy or blood tinged urineVSS, no AMSwill order U/A C&Smonitor [id number] Kenn Malone MD [facility] AT [address] [address] 04/28/2024 12:05:21 04/30/2024 10:12:28 Spontaneous pneumothorax 56253649 J93.83 see HPIrecurre nt spontaneou s right sided pneumothor ax, acute on chronic respirator y failureReq uired chest tube placement since removed with bedside pleurodesi s on 04/09monito r respirator y statuspulm onary f/u in place Asthenia 56299313 R53.1 PT OT eval and treatmonit or fall risk Chronic ob structive pulmonary disease 08019705 J44.1 see HPI now onpredniso ne taper decreased by 10 mg q 3 days down to 10 mgO2 by NC at 2 liters at baseline had increased to 4 liters prior to hospitaliz ationconti nue out patient medsmonito r albuterol utilizatio n Constipation 95906018 K5 9.09 bowel protocolmo nitor for effect Depressive disorder 3228 9007 F33.8 wellbutrin 150 mg bidmonitor for effectpsyc h eval prn Atrial fibrillation 4943 6004 I48.0 eliquis 5 mg bidmetopro lol 50 mg biddiltiaz em 120 mg qdmonitor for rate control Peripheral nerve disease 546877092 G64 carrying dx added to PMHlyrica 75 mg qdmonitor for effect Hyperlipidemia 27835992 E78.2 lipitor 10 mg qdcontinue d Essential hypertension 44931669 I10 metoprolol 50 mg biddiltiaz em 120 mg qdmonitor bp and need to titrate Myelodyspl astic syndrome (clinical) 892069685 D46.Z details not available added to PMHrequest from PCP prncarryin g dxmonitor cbcheme eval prn Chronic back pain 378198 002 G89.29 maintained on fentanyl 100 mcg q 72 hour [id number] RUSSELL CRUZ AT [address] [address] 04/29/2024 08:34:21 05/03/2024 12:09:48 Dysuria 31193363 R30.0 04/29: UA completed on 04/27/24 noted negative, he offers no complaints of dysuria, he tells me he is voiding ok. Right pneumothorax 09572 3001 J93.9 recurrent on the right sidesp right side chest tube placement and bedside pleurodesi s on 04/09-fredrick nue to monitor resp status and CP-monitor SpO2-fredrick nue po prednisone taper, w/ decreasing dose of 10 mg every 3 days, end date 05/02/24-f/u p with pulm and thoracic surgery as planned Chronic ob structive pulmonary disease 91098326 J44.9 on 4 L O2 at baselineCT A with ISLD and emphysema- albuterol q4h prn for sob-duoneb q6h prn for sob-treleg y inhaler daily Essential hypertension 57401743 I10 BP at goalsee plan for PAFcardiac meds as above-jess ls qshift x 3 days, then daily Anemia 814267961 D64.9 hgb improved on 04/13/24, now 8.8lower than baseline, likely in the setting of blood loss with recent chest tubemonito r cbc weekly [id number] Rebecca STOREY AT [address] [address] 05/03/2024 08:14:43 05/05/2024 08:53:07 Dysuria 39330830 R30.0 04/29: UA completed on 04/27/24 noted negative,w ith dysuria over the weekend, frequent voiding impacting sleeppt reporting previous regimen on flomax, will order 0.4 mg qdwill order PSA with labs for tomorrow Right pneumothorax 41164 3001 J93.9 recurrent on the right sidesp right side chest tube placement and bedside pleurodesi s on 04/09-fredrick nue to monitor resp status and CP-monitor [id number] naif prednisone taper, continue maintenanc e dose 10 mg qd-f/up with pulm and thoracic surgery as planned Chronic ob structive pulmonary disease 83674989 J44.9 on 4 L O2 at baselineCT A with ISLD and emphyseman ow with prednisone maintenanc e dose of 10 mg qd-albuter ol q4h prn for sob-duoneb q6h prn for sob-treleg y inhaler daily Essential hypertension 76156736 [facility] for PAFcardiac meds as above-jess ls qshift x 3 days, then daily Anemia 155336063 D64.9 hgb improved on 04/13/24, now 8.8lower than baseline, likely in the setting of blood loss with recent chest tubemonito r cbc weekly Fever 731504641 R50.9 see HPInursing reporting fever 102 in the afternoonp t with recent complex medical Hx, will send to ED for further eval [id number] JACKELYN STOREY AT [address] [address] 05/18/2024 12:06:55 05/19/2024 13:52:04 Chronic obstructive pulmonary disease 57136864 J44.9 on 4 L O2 at baselineCT A with ISLD and emphysema- prednisone 10 mg daily-albu terol q4h prn for sob-duoneb q6h prn for sob-treleg y inhaler daily Right pneumothorax 27141 3001 J93.9 see HPIs/p talc pleurodesi she will need follow up with Dr. Riley in 2 weeks with CXR prior to visitmonit or resp status closely Vitamin deficiency 97039 002 E56.9 carrying dx-choleca lciferol 1000 units daily-MVD dailypyrox ine 50 mg daily Constipation 05971383 K5 9.00 on bowel reg-colace 100 mg BID-mirala x 17 gm dailymonit or bowels Depressive disorder 7258 9007 F32.A -wellbutri n 150 mg k30u-mpsur eval prn-monito r mood and affect Atrial fibrillation 4943 6004 I48.91 h/o PAF-eliqui s 5 mg po bid-dilt 240 mg daily-meto prolol 50 mg po bid-monito r HR and bleeding Peripheral nerve disease 937987528 G64 -lyrica 75 mg po daily Hyperlipidemia 43722826 E78.5 carrying dx-lipitor 10 mg po daily-lipi ds as needed Essential hypertension 50528175 I10 vitals qshift x 3 days, then daily Myelodyspl astic syndrome (clinical) 660143671 D46.9 carrying dx-fentany l patch 100 mcg/hr = replace [id number] done 10 mg q4h prn for mod-sev breakthrou gh pain-tylen ol 975 mg po TID scheduled Chronic back pain 293290 002 G89.29 -see above Anemia 554864763 D64.9 monitor labs [id number] Kenn Malone MD [facility] AT [address] [address] 05/21/2024 12:06:59 05/25/2024 09:50:14 Spontaneous pneumothorax 12745977 J93.83 see HPIrecurre nt spontaneou s right sided pneumothor axunderwe nt pleurodesi s on 04/09 and again during this hospitaliz ation on 05/08monito r respirator y statuspulm onary f/u in place Dr Riley with CXR prior to this appt Asthenia 94346289 R53.1 PT OT eval and treatmonit or fall risk and need for increased support in community Chronic ob structive pulmonary disease 35997397 J44.1 O2 by NC at 2 liters at baselineco ntinue out patient medsmonito r albuterol utilizatio non prednisone 10 mg qd at baselinepa tient has f/u with pulmonary later today Atrial fibrillation 4943 6004 I48.0 eliquis restarted post chest tube now oneliquis 5 mg bidmetopro lol 50 mg biddiltiaz em 240 mg qd - this dose increased in hospitalmo nitor for rate control Myelodyspl astic syndrome (clinical) 896290113 D46.Z carrying dxmonitor cbcheme eval prn Peripheral nerve disease 042953373 G64 lyrica 75 mg qdmonitor for effect Essential hypertension 03741600 I10 metoprolol 50 mg biddiltiaz em 240 mg qdmonitor bp and need to titrate Constipation 36270116 K5 9.09 bowel protocolmo nitor for effect Depressive disorder 3548 9007 F33.8 wellbutrin 150 mg bidmonitor for effectpsyc h eval prn Hyperlipidemia 02418010 E78.2 lipitor 10 mg qdcontinue d Chronic back pain 027584 002 G89.29 maintained on fentanyl 100 mcg q 72 hourcontin ued [id number] JACKELYN STOREY AT [address] [address] 05/24/2024 12:21:10 05/25/2024 16:11:05 Benign prostatic hyperplasia 437088359 N40.1 likely dx he states from PCPrestart flomax 0.4 mg qhsfollow up with pt in one week to see if improvemen tconsider UA if burning continues [id number] MD CORDELIA Otoole AT [address] [address] 05/28/2024 22:12:48 2024 14:08:55 Orthostatic hypotension 42290716 I95.1 No indication of why diltiazem was increased from 120 mg qd to 240 mg qd.But d/c summary says can wean down to 120 mg after transfer back here, so will do that.Will decrease to 120 mg qd and monitor orthostati cs daily x 3. Dyspnea 169091289 R06.02 With some increased SOB today. Sats stayed stable.CXR c/w with hx of previous right pneumothor aces and procedures .Now at baseline.M onitor [id number] RUSSELL CRUZ AT [address] [address] 06/04/2024 10:35:03 06/08/2024 12:55:12 Orthostatic hypotension 49485519 I95.1 He was getting cardizem 240 mg that was decreased to 120 mg daily on 05/29ortho BP for 3 days previously ordered- ? doneBP mainly 110-130's Dyspnea 089003312 R06.02 stable at baselineCX R c/w with hx of previous right pneumothor aces and procedures .continue oxygen ( now dependent) Atrial fibrillation 4943 6004 I48.0 eliquis 5 mg bidmetopro lol 50 mg bidcardize m 120 mg daily. [id number] Bryant STOREY AT [address] [address] 06/07/2024 07:51:58 06/08/2024 13:35:02 Respiratory tract congestion and cough 702334832 R05.9 start flonase 50mcg/actu ation 1 spray each nostril qdmonitor for relief [id number] Bryant STOREY AT [address] [address] 06/10/2024 07:35:38 06/11/2024 10:26:41 Orthostatic hypotension 50409341 I95.1 He was getting cardizem 240 mg that was decreased to 120 mg daily on 05/29ortho BP for 3 days previously ordered- ? doneBP mainly 100s-120s, SBP 90s recently Dyspnea 620348983 R06.02 stable at baselineCX R c/w with hx of previous right pneumothor aces and procedures .continue oxygen (now dependent) Atrial fibrillation 4943 6004 I48.0 rate controlled continue eliquis 5 mg bid, metoprolol 50 mg bid, cardizem 120 mg daily.If BP remains on low side consider reducing cardizem Respirator y tract congestion and cough 989012340 R05.9 IMproved with flonasecon tinue flonase 50mcg/actu ation 1 spray each nostril qdchange geritussin from prn to scheduled x 7-10 daysmonito r for relief Right pneumothorax 38991 3001 J93.9 see HPIs/p talc pleurodesi she will need follow up with Dr. Riley in 2 weeks with CXR prior to visitmonit or resp status closely Chronic ob structive pulmonary disease 26539454 J44.9 no acute sxson 4 L O2 at baselineCT A with ISLD and emphysemaC ontinue prednisone 10 mg daily, albuterol q4h prn for sob, duoneb q6h prn for sob, trelegy inhaler daily Depressive disorder 2988 9007 F32.A Mood good todayConti nue wellbutrin 150 mg m07gjuanud r mood and consult [facility] if needed Peripheral nerve disease 494734225 G64 continue lyrica 75 mg po daily Essential hypertension 57991401 I10 BP readings borderline lowcontinu e metoprolol 50 mg bid, cardizem 120 mg daily.nereyda tor labs & BP Myelodyspl astic syndrome (clinical) 675425896 D46.9 pain well controlled Continue fentanyl patch 100 mcg/hr q72h, oxycodone 10 mg q4h prn, tylenol 975 mg po TIDmonitor pain response Chronic back pain 293883 002 G89.29 see above Anemia 565761749 D64.9 stable on recent labsmonito r CBC [id number] Bryant STOREY AT [address] [address] 06/11/2024 11:09:33 06/14/2024 14:20:01 Allergic conjunctivitis of bilateral eyes 3033729101 28793 H10.13 no concerns for bacterial infection todaystart ketotifen eye drops BIDmonitor for resolution Acute exac erbation of chronic obstructive pulmonary disease 230928003 J44.1 concerns for COPD exacerbati on today likely viral or allergen inducedhas been covid negon 4 L O2 at baselineCT A with ISLD and emphysemaO rder stat CXR 2V, CBC w/diff, BMP todayincre ase daily maintenanc e prednisone to 40mg qd x 5 days then resume daily 10mg dose (give 30mg dose today)alarcon ge duonebs to scheduled q6h x 5 days, then resume PRNContinu e albuterol q4h prn for sob, trelegy inhaler daily Right pneumothorax 46277 3001 J93.9 s/p talc pleurodesi snow with respirator y crackes, cough and SOBhas follow up next week with Dr. Mercedes carlton resp status closely [id number] Bryant STOREY AT [address] [address] 06/12/2024 10:41:43 06/14/2024 14:39:09 Respiratory tract congestion and cough 236623173 R05.9 IMproved with flonasecon tinue flonase 50mcg/actu ation 1 spray each nostril qd, geritussin q6h x 7-10 dayscovid negflu orderedmon itor for relief Anemia 394722124 D64.9 stable on recent labsmonito r CBC Acute exac erbation of chronic obstructive pulmonary disease 427298270 J44.1 secondary to PNAcovid neg,on 4 L O2 at baselineCT A with ISLD and emphysemaC ontinue prednisone to 40mg qd x 5 days then resume daily 10mg doseContin ue duonebs q6h x 5 days, then resume PRN, albuterol q4h prn for sob, trelegy inhaler daily Allergic conjunctivitis of bilateral eyes 9019918418 54132 H10.13 no concerns for bacterial infection todaystart ketotifen eye drops BIDmonitor for resolution Right pneumothorax 91476 3001 J93.9 s/p talc pleurodesi snow with PNAhas follow up next week with Dr. Riley but unclear if transporta tion can be arrange. Staff encouraged to reschedule for ASAPmonito r resp status closely Pneumonia 099977296 J18. 9 CXR patchy airspace disease with concerns for PNALabs without leukocytos is or left shiftstart ed on z-demario and doxycyclin e (will d/c doxy and change to Augmentin 875/125 BID x 7 days for better coveragefa x over recent CXR to thoracic surgery [id number] Bryant STOREY AT [address] [address] 06/14/2024 07:30:00 06/16/2024 08:46:20 Pneumonia 181315590 J18.9 Continue z-demario and augmentinf ax over recent CXR to thoracic surgerymon itor for resolution consider repeat CXR 1 month Acute exac erbation of chronic obstructive pulmonary disease 140149874 J44.1 on 4 L O2 at baselineCT A with ISLD and emphysemaC ontinue prednisone to 40mg qd x 5 days then resume daily 10mg doseContin ue duonebs q6h x 5 days, then resume PRN, albuterol q4h prn for sob, trelegy inhaler daily Right pneumothorax 86014 3001 J93.9 s/p talc pleurodesi snow with PNAhas follow up next week with Dr. Riley but has to be reschedule d due to lack of transporta tionmonito r resp status closely Respirator y tract congestion and cough 388252664 R05.9 IMproved with flonasecon tinue flonase 50mcg/actu ation 1 spray each nostril qd, geritussin q6h x 7-10 dayscovid negflu orderedmon itor for relief Anemia 357795492 D64.9 stable on recent labsmonito r CBC Allergic conjunctivitis of bilateral eyes 0745475061 68960 H10.13 continue ketotifen eye drops BIDmonitor for resolution Myelodyspl astic syndrome (clinical) 633608047 D46.9 pain well controlled Continue fentanyl patch 100 mcg/hr q72h, oxycodone 10 mg q4h prn, tylenol 975 mg po TIDmonitor pain response Tight chest 01668848 R07 .89 reports sxs indigestio n; no radiation of pain or difficulty breathingw ill order TUMS prn [id number] Austin_Alessia [facility] AT [address] [address] 06/16/2024 07:44:58 06/22/2024 09:46:20 Pneumonia 070394247 J18.9 completes z-demario today and augmentin ends on it or for resolution consider repeat CXR 1 month Acute exac erbation of chronic obstructive pulmonary disease 494646500 J44.1 on 4 L O2 at baselineCT A with ISLD and emphysemaC ontinue prednisone taper back to 10mg qdContinue duonebs q6h x 5 days, then resume PRN, albuterol q4h prn for sob, trelegy inhaler daily Right pneumothorax 19970 3001 J93.9 s/p talc pleurodesi snow with PNAf/u Dr. Riley reschedule d to 11monit or resp status closely Respirator y tract congestion and cough 024673742 R05.9 IMprovedco ntinue flonase 50mcg/actu ation 1 spray each nostril qd, geritussin q6h x 7-10 daysmonito r for relief Tight chest 14131304 R07 .89 resolved with no recurrent sxs [id number] [facility] AT [address] [address] 06/17/2024 10:08:00 06/22/2024 10:34:00 Myelodysplastic syndrome (clinical) 247757659 D46.9 pain well controlled Continue fentanyl patch 100 mcg/hr q72h, oxycodone 10 mg q4h prn, tylenol 975 mg po TIDcontinu e Pyridoxine 50mg qdmonitor pain response Anemia 511953976 D64.9 check CBC tomorrow (will be d/c home in the next week) [id number] [facility] AT [address] [address] 06/22/2024 07:42:12 06/23/2024 14:39:27 Pneumonia 534882301 J18.9 completed z-demario and augmentinm onitor for recurrent sxsf/u PCP outpatient for repeat CXR 1 month to determine resolution Acute exac erbation of chronic obstructive pulmonary disease 330468270 J44.1 acute exacerbati on resolvedon 4 L O2 at baselineCT A with ISLD and emphysemaC ompleted prednisone taper back to 10mg qdContinue duonebs PRN, albuterol q4h prn for sob, trelegy inhaler daily Right pneumothorax 38549 3001 J93.9 s/p talc pleurodesi streated for PNA on CXR last weekf/u Dr. Riley reschedule d to 07/06stat 2V CXR today eval interval change prior to d/cmonitor resp status closely Respirator y tract congestion and cough 679400553 R05.9 IMprovedco ntinue flonase 50mcg/actu ation 1 spray each nostril qd, geritussin q6h prnmonitor for relief Tight chest 65522856 R07 .89 resolved with no recurrent sxs Myelodyspl astic syndrome (clinical) 570139992 D46.9 pain well controlled Continue fentanyl patch 100 mcg/hr q72h, oxycodone 10 mg q4h prn, tylenol 975 mg po TIDcontinu e Pyridoxine 50mg qdmonitor pain response Anemia 902474696 D64.9 stable on recent labsHgb 9.2 (increased from previous BL 8.2-8.7)mo nitor CBC Allergic conjunctivitis of bilateral eyes 2351141244 68052 H10.13 continue ketotifen eye drops BID change to prn once resolvedmo nitor for resolution Orthostati c hypotension 58249018 I95.1 He was getting cardizem 240 mg that was decreased to 120 mg daily on P mainly 100s-120s, SBP 90s recently Atrial fibrillation 4943 6004 I48.0 rate controlled continue eliquis 5 mg bid, metoprolol 50 mg bid, cardizem 120 mg daily.If BP remains on low side consider reducing cardizem Chronic ob structive pulmonary disease 83068219 J44.9 no acute sxson 4 L O2 at baselineCT A with ISLD and emphysemaC ontinue prednisone 10 mg daily, albuterol q4h prn for sob, duoneb q6h prn for sob, trelegy inhaler daily Depressive disorder 3548 9007 F32.A Mood good todayConti nue wellbutrin 150 mg d11ngohnsc r mood and consult [facility] if needed Peripheral nerve disease 192913707 G64 continue lyrica 75 mg po daily Essential hypertension 36152742 I10 BP readings borderline lowcontinu e metoprolol 50 mg bid, cardizem 120 mg daily.nereyda tor labs & BP Chronic back pain 026836 002 G89.29 see above [id number] [facility] AT [address] [address] 06/23/2024 07:14:18 06/24/2024 14:49:38 Pneumonia 973897464 J18.9 completed z-demario and augmentinm onitor for recurrent sxsf/u PCP outpatient for repeat CXR 1 month to determine resolution Acute exac erbation of chronic obstructive pulmonary disease 071616983 J44.1 acute exacerbati on resolvedon 4 L O2 at baselineCT A with ISLD and emphysemaC ompleted prednisone taper back to 10mg qdContinue duonebs PRN, albuterol q4h prn for sob, trelegy inhaler daily Right pneumothorax 14977 3001 J93.9 s/p talc pleurodesi streated for PNA on CXR last weekf/u Dr. Riley reschedule d to 1112monit or resp status closely Respirator y tract congestion and cough 630984889 R05.9 IMprovedco ntinue flonase 50mcg/actu ation 1 spray each nostril qd, geritussin q6h prnmonitor for relief Tight chest 62640202 R07 .89 resolved with no recurrent sxs Myelodyspl astic syndrome (clinical) 812138014 D46.9 pain well controlled Continue fentanyl patch 100 mcg/hr q72h, oxycodone 10 mg q4h prn, tylenol 975 mg po TIDcontinu e Pyridoxine 50mg qdmonitor pain response Anemia 294920187 D64.9 stable on recent labsHgb 9.2 (increased from previous BL 8.2-8.7)mo nitor CBC Allergic conjunctivitis of bilateral eyes 0749130324 55632 H10.13 continue ketotifen eye drops BID change to prn once resolvedmo nitor for resolution Orthostati c hypotension 23775444 I95.1 He was getting cardizem 240 mg that was decreased to 120 mg daily on P mainly 100s-120s, SBP 90s recently Atrial fibrillation 4943 6004 I48.0 rate controlled continue eliquis 5 mg bid, metoprolol 50 mg bid, cardizem 120 mg daily.If BP remains on low side consider reducing cardizem Chronic ob structive pulmonary disease 42244613 J44.9 no acute sxson 4 L O2 at baselineCT A with ISLD and emphysemaC ontinue prednisone 10 mg daily, albuterol q4h prn for sob, duoneb q6h prn for sob, trelegy inhaler daily Depressive disorder 5839 2166 F32.A Mood good todayConti nue wellbutrin 150 mg [id number] r mood and consult [facility] if needed Peripheral nerve disease 379477681 G64 continue lyrica 75 mg po daily Essential hypertension 52459970 I10 BP readings borderline lowcontinu e metoprolol 50 mg bid, cardizem 120 mg daily.nereyda tor labs & BP Chronic back pain 061538 002 G89.29 see above Hyperlipidemia 41798530 E78.2 Health Concerns Section Related Observation LastModified by Organization Detai ls LastModified Time None Recorded Concern Status LastModified by Organization Details LastModified Time None Recorded Advance Directives Directive Y: Payers Insurance Date Sequence Insurance Name Policy Number Policy Workman Covered Member ID Workman Member ID Guarantor Name 06/04/2024 2 [place] [facility] Edward Courchesne [id number] Edward Courchesne 06/01/2024 1 [place] Edward N Courchesne [id number] Edward Courchesne Notes Date Note Type Note Provider Name and Address Organization Details Recorded Time 06/14/2024 text/html ROS as noted in the HPI This is a 79 y.o male being [...] transportation Patient seen lying in bed in [facility]. He tells me he is feeling better but unsure if related to prednisone increase. He does have mild chest tightness and he states it feels like GERD. No radiation of pain and intermittently. He is agreeable to f/u thoracic surgery [place] which has been rescheduled to Early Jun. Austin[facility]Alessia[facility]Oleg is [address], [address], [place], [address], [employer] 06/14/2024 11:33:43 06/16/2024 text/html ROS as noted in the HPI This is a 79 y.o male being [...] per patient and nursing. Bhavesh is [address], [address], [place], [address], [employer] 06/16/2024 11:44:52 06/17/2024 text/html ROS as noted in the HPI This is a 79 y.o male being seen for acute rounding visit past medical history of afib on eliquis, COPD/ asthma on 4 L, recurrent pneumothorax, prior smoker, myelodysplastic disease, peripheral neuropathy, chronic back pain, HTN, HLD. Nursing tells me patient requesting to see this technical document writer to review meds. Nursing reports he [...] otherwise feeling okay today Bhavesh is [address], [address], [place], [address], [employer] 06/17/2024 12:14:57 06/22/2024 text/html ROS as noted in the HPI This is a 79 y.o male being [...] to the ED for urgent eval at [facility]. He was found with spontaneous pneumothorax [...] he tells me he feels okay today. [facility] is [address] [place] [address], [address], [place], [address], [facility] [employer] 06/22/2024 12:55:26 06/23/2024 text/html ROS as noted in the HPI This is a 79 y.o male being [...] to the ED for urgent eval at [facility]. He was found with spontaneous pneumothorax as well as klebsiella bacteremia due to UTI. He underwent talc pleurodesis on 05.08, pigtail removed on 05/16 by thoracic surgery. Repeat imaging showed mild increase in small right apical pneumothorax but then second repeat showed area was stable. His eliquis was restarted, he was stabilized and felt he could DC back to [facility]. Patient was seen last month for urinary [...] Patient seen today sitting in bed in [facility]. he tells me he feels okay today and ready for d/c. Reviewed sxs requiring ED eval, patient verbalized understanding Bhavesh is [address], [address], [place], [address], [facility] - [employer] 06/23/2024 10:45:04
--- OUTSIDE RECORDS SUMMARY | 2025-05-30 15:51 | XMS_ITS | Patient Health Record ---
Author Organization Salbador Ybarra III, MD Address [address] [place] [address] [place] [address] Care Team Providers Care Schedule Hanger Name Role Phone Nikita Rivera MD Primary Care Provider Unavailab Dr. Salbador Fuentes III Unavailable Allergies Allergen (clinical drug ingredient) Drug/Non Drug Allergy documented on EMR Reaction Allergy Type Onset Date Status No Known Drug Allergy Unknown Drug Allergy Active Reason For Referral No Information Medications Medication SIG (Take, Route, Frequency, Duration) Notes Start Date End Date Status dilTIAZem HCl ER Coated Beads 240 MG TAKE 1 CAPSULE BY MOUTH EVERY DAY Oral Active Pregabalin 75 MG 1 capsule Orally Twi ce a day Active Vitamin B-6 50 MG TAKE ONE (1) TABLET BY MOUTH ONCE EVERY DAY for 30 Active Trelegy Ellipta 100-62.5-25 MCG/ACT 1 puff [...] Problem Status W/U Status Risk Notes Problem 1381322 Former smoker (Z87.891) Active confirmed He is not smoking now and seems motivated to remain abstinent. We discussed a strategy to prevent relapse in the future. Problem 574051400 Overweight (E66.3) Active confirmed His body mass index is 28. He has lost 8 pounds. We reviewed his weight loss strategy. He will continue to lose weight at a rate of one half of a pound per week. Problem Myelodysplastic syndrome (671674123) Myelodysplastic syndrome, unspecified (D46.9) Active confirmed His mean cell volume Is slowly increasing. No change in his blood work has been noted. Current therapy was continued. The vitamin B12 and folic acid levels are normal. Problem Chronic obstructive pulmonary disease (47705553) Chronic obstructive pulmonary disease, unspecified (J44.9) Active confirmed His COPD is stable and he is not wheezing at this time. He says he is not smoking. He denies any coughing or wheezing and shortness of breath is only with prolonged exertion. Problem Osteoarthritis (190169281) Polyosteoarthriti s, unspecified (M15.9) Active confirmed He has been continued on his chronic pain regimen by his primary care physician. Problem 78619376 Idiopathic peripheral neuropathy (G60.9) Active confirmed Problem 16226953 Atrial fibrillation, unspecified type (I48.91) Active confirmed Problem 422849330 Stage 2 chronic kidney disease (N18.2) Active confirmed His renal function is stable. No change in his regimen was needed. His BUN is 17 with a creatinine of 1.1. Encounters Encounter Location Date Provider Diagnosis Salbador Ybarra III, MD [address] [place] [address] [place] [address] 08/02/2024 Salbador Ybarra Myelodysplastic syndrome, unspecified D46.9 Assessments Encounter Date Diagnosis (ICD Code) Assessment Notes Treat ment Notes Treatment Clinical Notes 08/02/2024 Myelodysplastic syndrome, unspecified (ICD-10 - D46.9) His mean cell volume Is slowly increasing. No change in his blood work has been noted. Current therapy was continued. The vitamin B12 and folic acid levels are normal. Plan Of Treatment Pending Test Test Name [...] 01/12/2020 PROFILE, RANDOM (COMPREHENSIVE METABOLIC ) 01/11/2019 PROFILE, RANDOM (COMPREHENSIVE METABOLIC ) 01/06/2023 FERRITIN 06/12/2018 FERRITIN 05/12/2023 B12 03/06/2022 FOLATE 01/06/2023 CBC w DIFF 03/06/2022 CBC w DIFF 05/12/2023 CBC w DIFF 09/05/2021 CBC w DIFF 01/06/2023 CBC w DIFF 07/14/2019 CBC w DIFF 09/14/2018 CBC w DIFF 09/06/2022 CBC w DIFF 06/12/2018 CBC w DIFF 01/12/2020 CBC w DIFF 01/11/2019 RETICULOCYTE COUNT,CORRECTED 09/05/2021 RETICULOCYTE COUNT,CORRECTED 07/14/2019 RETICULOCYTE COUNT,CORRECTED 09/14/2018 RETICULOCYTE COUNT,CORRECTED 06/12/2018 CBC WITH AUTO DIFF 02/06/2024 CBC WITH AUTO DIFF 09/11/2023 RETIC 05/12/2023 RETIC 09/06/2022 RETIC 09/11/2023 Vitamin B12 01/06/2023 Folate 03/06/2022 Insurance Providers Payer Name Payer Address Payer Phone Subscriber Number Group Number Insured Name Patient Relationship to Insured Coverage Start Date Coverage End Date MEDICARE NGS [address] [place] [address] [phone] [id number] Jordy Trent Self - patient is the insured MEDICAID [place] [address] [place], [place] [id number] [phone] [id number] Jordy Trent Self - patient is the insured Medical (General) History Medical History History ICD Code Bilateral rotator cuff surgery COPD Refractory Anemia with ringed sideroblas ts/ Myelodydplastic syndrome diverticulitis on December 18, 2001. Osteoarthitis with chronic back pain peripheral neuropathy Surgical History Surgery Date(Month/Year) bowel resection for diverticulitis 2001
--- OUTSIDE RECORDS SUMMARY | 2025-05-30 15:51 | XMS_ITS ---
Author Name [facility] Organization Unknown Results Test Name/Text Value Interpretation Date Range Source Glucose SerPl-mCnc 87.0 mg/dL Normal 05/17/2024 65 - 99 H[facility] Anion Gap Bld-sCnc 7.0 Normal 05/17/2024 7 - 17 HHCCT Sodium SerPl-sCnc 137.0 mmol/L Normal 05/17/2024 136 - 14 5 HHCCT Calcium SerPl-mCnc 9.5 mg/dL Normal 05/17/2024 8.7 - 10.5 HHCCT BUN/Creat SerPl 14.0 Ratio Normal 05/17/2024 10 - 25 HH CCT BUN SerPl-mCnc 14.0 mg/dL Normal 05/17/2024 8 - [address] CO2 SerPl-sCnc 34.0 mmol/L Above high normal 05/17/2024 22 - 33 HHCCT Potassium SerPl-sCnc 4.4 mmol/L Normal 05/17/2024 3.4 - 5.3 HHCCT GFR/BSA.pred SerPlBld [id number] 78.0 Normal 05/17/2024 59 - HHCCT Chloride SerPl-sCnc 96.0 mmol/L Below low normal 05/17/2024 98 - 107 HHCCT Creat SerPl-mCnc 1.0 mg/dL Normal 05/17/2024 0.5 - 1.3 HH CCT Hct VFr Bld Auto 29.1 % Below low normal 05/17/2024 39 - 54 HHCCT MCV RBC Auto 105.0 fL Above high normal 05/17/2024 80 - 100 HHCCT MCH RBC Qn Auto 32.6 pg Above high normal 05/17/2024 27 - 31 HHCCT Platelet num Bld Auto 276.0 Thou/uL Normal 05/17/2024 150 - 450 HHCCT PMV Bld Auto 10.7 fL Normal 05/17/2024 7.5 - 12.5 HHCCT WBC num Bld Auto 5.9 Thou/uL Normal 05/17/2024 4 - 11 HHCCT RBC num Bld Auto 2.76 Mil/uL Below low normal 05/17/2024 4.5 - 6.2 HHCCT Hgb Bld-mCnc 9.0 g/dL Below low normal 05/17/2024 13 - 17.7 HHCCT MCHC RBC Auto-mCnc 30.9 g/dL Normal 05/17/2024 30 - 36 HHCCT RDW RBC Auto-Rto 16.3 % Above high normal 05/17/2024 11.5 - 14.5 HHCCT Calcium SerPl-mCnc 9.3 mg/dL Normal 05/16/2024 8.7 - 10.5 HHCCT Anion Gap Bld-sCnc 9.0 Normal 05/16/2024 7 - 17 HHCCT BUN/Creat SerPl 16.0 Ratio Normal 05/16/2024 10 - 25 HH CCT Creat SerPl-mCnc 1.0 mg/dL Normal 05/16/2024 0.5 - 1.3 HH CCT Chloride SerPl-sCnc 98.0 mmol/L Normal 05/16/2024 98 - 10 7 HHCCT Sodium SerPl-sCnc 139.0 mmol/L Normal 05/16/2024 136 - 14 5 HHCCT Potassium SerPl-sCnc 4.4 mmol/L Normal 05/16/2024 3.4 - 5.3 HHCCT CO2 SerPl-sCnc 32.0 mmol/L Normal 05/16/2024 22 - 33 HH CCT BUN SerPl-mCnc 16.0 mg/dL Normal 05/16/2024 8 - [address] Glucose SerPl-mCnc 94.0 mg/dL Normal 05/16/2024 65 - 99 HHCCT GFR/BSA.pred SerPlBld [id number]-TkIDcu 78.0 Normal 05/16/2024 59 - HHCCT PMV Bld Auto 10.0 fL Normal 05/16/2024 7.5 - 12.5 HHCCT Hct VFr Bld Auto 28.9 % Below low normal 05/16/2024 39 - 54 HHCCT MCHC RBC Auto-mCnc 30.8 g/dL Normal 05/16/2024 30 - 36 HHCCT MCH RBC Qn Auto 32.5 pg Above high normal 05/16/2024 27 - 31 HHCCT RDW RBC Auto-Rto 16.4 % Above high normal 05/16/2024 11.5 - 14.5 HHCCT Platelet num Bld Auto 268.0 Thou/uL Normal 05/16/2024 150 - 450 HHCCT MCV RBC Auto 106.0 fL Above high normal 05/16/2024 80 - 100 HHCCT WBC num Bld Auto 7.4 Thou/uL Normal 05/16/2024 4 - 11 HHCCT Hgb Bld-mCnc 8.9 g/dL Below low normal 05/16/2024 13 - 17.7 HHCCT RBC num Bld Auto 2.74 Mil/uL Below low normal 05/16/2024 4.5 - 6.2 HHCCT Calcium SerPl-mCnc 9.5 mg/dL Normal 05/15/2024 8.7 - 10.5 HHCCT Potassium SerPl-sCnc 4.9 mmol/L Normal 05/15/2024 3.4 - 5.3 HHCCT Glucose SerPl-mCnc 110.0 mg/dL Above high normal 05/15/2024 65 - 99 HHCCT GFR/BSA.pred SerPlBld TEC-[id number]-[id number] 89.0 Normal 05/15/2024 59 - HHCCT Creat SerPl-mCnc 0.9 mg/dL Normal 05/15/2024 0.5 - 1.3 HH CCT Anion Gap Bld-sCnc 11.0 Normal 05/15/2024 7 - 17 HHCCT BUN/Creat SerPl 21.0 Ratio Normal 05/15/2024 10 - 25 HH CCT Sodium SerPl-sCnc 140.0 mmol/L Normal 05/15/2024 136 - 14 5 HHCCT CO2 SerPl-sCnc 31.0 mmol/L Normal 05/15/2024 22 - 33 HH CCT BUN SerPl-mCnc 19.0 mg/dL Normal 05/15/2024 8 - [address] Chloride SerPl-sCnc 98.0 mmol/L Normal 05/15/2024 98 - 10 7 HHCCT Platelet num Bld Auto 321.0 Thou/uL Normal 05/15/2024 150 - 450 HHCCT RBC num Bld Auto 2.94 Mil/uL Below low normal 05/15/2024 4.5 - 6.2 HHCCT RDW RBC Auto-Rto 16.3 % Above high normal 05/15/2024 11.5 - 14.5 HHCCT PMV Bld Auto 10.4 fL Normal 05/15/2024 7.5 - 12.5 HHCCT MCHC RBC Auto-mCnc 30.6 g/dL Normal 05/15/2024 30 - 36 HHCCT WBC num Bld Auto 6.7 Thou/uL Normal 05/15/2024 4 - 11 HHCCT Hgb Bld-mCnc 9.5 g/dL Below low normal 05/15/2024 13 - 17.7 HHCCT MCV RBC Auto 105.0 fL Above high normal 05/15/2024 80 - 100 HHCCT Hct VFr Bld Auto 31.0 % Below low normal 05/15/2024 39 - 54 HHCCT MCH RBC Qn Auto 32.3 pg Above high normal 05/15/2024 27 - 31 HHCCT Magnesium SerPl-mCnc 2.1 mg/dL Normal 05/15/2024 1.6 - 2.7 HHCCT BUN SerPl-mCnc 19.0 mg/dL Normal 05/14/2024 8 - [address] Sodium SerPl-sCnc 139.0 mmol/L Normal 05/14/2024 136 - 14 5 HHCCT Potassium SerPl-sCnc 4.3 mmol/L Normal 05/14/2024 3.4 - 5.3 HHCCT Creat SerPl-mCnc 1.0 mg/dL Normal 05/14/2024 0.5 - 1.3 HH CCT Anion Gap Bld-sCnc 10.0 Normal 05/14/2024 7 - 17 HHCCT CO2 SerPl-sCnc 32.0 mmol/L Normal 05/14/2024 22 - 33 HH CCT Glucose SerPl-mCnc 98.0 mg/dL Normal 05/14/2024 65 - 99 HHCCT GFR/BSA.pred SerPlBld GDZ-[id number] 78.0 Normal 05/14/2024 59 - HHCCT Chloride SerPl-sCnc 97.0 mmol/L Below low normal 05/14/2024 98 - 107 HHCCT BUN/Creat SerPl 19.0 Ratio Normal 05/14/2024 10 - 25 HH CCT Calcium SerPl-mCnc 9.5 mg/dL Normal 05/14/2024 8.7 - 10.5 HHCCT Platelet num Bld Auto 287.0 Thou/uL Normal 05/14/2024 150 - 450 HHCCT PMV Bld Auto 10.2 fL Normal 05/14/2024 7.5 - 12.5 HHCCT MCV RBC Auto 103.0 fL Above high normal 05/14/2024 80 - 100 HHCCT Hgb Bld-mCnc 9.0 g/dL Below low normal 05/14/2024 13 - 17.7 HHCCT MCH RBC Qn Auto 31.9 pg Above high normal 05/14/2024 27 - 31 HHCCT WBC num Bld Auto 5.4 Thou/uL Normal 05/14/2024 4 - 11 HHCCT MCHC RBC Auto-mCnc 30.9 g/dL Normal 05/14/2024 30 - 36 HHCCT Hct VFr Bld Auto 29.1 % Below low normal 05/14/2024 39 - 54 HHCCT RDW RBC Auto-Rto 16.5 % Above high normal 05/14/2024 11.5 - 14.5 HHCCT RBC num Bld Auto 2.82 Mil/uL Below low normal 05/14/2024 4.5 - 6.2 HHCCT MCV RBC Auto 103.0 fL Above high normal 05/13/2024 80 - 100 HHCCT RDW RBC Auto-Rto 16.5 % Above high normal 05/13/2024 11.5 - 14.5 HHCCT Hct VFr Bld Auto 31.1 % Below low normal 05/13/2024 39 - 54 HHCCT WBC num Bld Auto 8.0 Thou/uL Normal 05/13/2024 4 - 11 HHCCT PMV Bld Auto 10.3 fL Normal 05/13/2024 7.5 - 12.5 HHCCT Platelet num Bld Auto 312.0 Thou/uL Normal 05/13/2024 150 - 450 HHCCT Hgb Bld-mCnc 9.7 g/dL Below low normal 05/13/2024 13 - 17.7 HHCCT MCHC RBC Auto-mCnc 31.2 g/dL Normal 05/13/2024 30 - 36 HHCCT MCH RBC Qn Auto 32.1 pg Above high normal 05/13/2024 27 - 31 HHCCT RBC num Bld Auto 3.02 Mil/uL Below low normal 05/13/2024 4.5 - 6.2 HHCCT Glucose SerPl-mCnc 99.0 mg/dL Normal 05/12/2024 65 - 99 HHCCT BUN/Creat SerPl 16.0 Ratio Normal 05/12/2024 10 - 25 HH CCT Calcium SerPl-mCnc 9.4 mg/dL Normal 05/12/2024 8.7 - 10.5 HHCCT Creat SerPl-mCnc 1.0 mg/dL Normal 05/12/2024 0.5 - 1.3 HH CCT BUN SerPl-mCnc 16.0 mg/dL Normal 05/12/2024 8 - [address] Anion Gap Bld-sCnc 10.0 Normal 05/12/2024 7 - 17 HHCCT CO2 SerPl-sCnc 29.0 mmol/L Normal 05/12/2024 22 - 33 HH CCT Chloride SerPl-sCnc 98.0 mmol/L Normal 05/12/2024 98 - 10 7 HHCCT Sodium SerPl-sCnc 137.0 mmol/L Normal 05/12/2024 136 - 14 5 HHCCT Potassium SerPl-sCnc 4.9 mmol/L Normal 05/12/2024 3.4 - 5.3 HHCCT GFR/BSA.pred SerPlBld FYA-OJK-RqWDty 78.0 Normal 05/12/2024 59 - HHCCT Hct VFr Bld Auto 29.0 % Below low normal 05/12/2024 39 - 54 HHCCT Platelet num Bld Auto 293.0 Thou/uL Normal 05/12/2024 150 - 450 HHCCT WBC num Bld Auto 5.8 Thou/uL Normal 05/12/2024 4 - 11 HHCCT RDW RBC Auto-Rto 16.5 % Above high normal 05/12/2024 11.5 - 14.5 HHCCT RBC num Bld Auto 2.81 Mil/uL Below low normal 05/12/2024 4.5 - 6.2 HHCCT MCHC RBC Auto-mCnc 31.4 g/dL Normal 05/12/2024 30 - 36 HHCCT Hgb Bld-mCnc 9.1 g/dL Below low normal 05/12/2024 13 - 17.7 HHCCT PMV Bld Auto 10.2 fL Normal 05/12/2024 7.5 - 12.5 HHCCT MCH RBC Qn Auto 32.4 pg Above high normal 05/12/2024 27 - 31 HHCCT MCV RBC Auto 103.0 fL Above high normal 05/12/2024 80 - 100 HHCCT RBC num Bld Auto 2.83 Mil/uL Below low normal 05/11/2024 4.5 - 6.2 HHCCT Hgb Bld-mCnc 9.2 g/dL Below low normal 05/11/2024 13 - 17.7 HHCCT Platelet num Bld Auto 265.0 Thou/uL Normal 05/11/2024 150 - 450 HHCCT PMV Bld Auto 10.0 fL Normal 05/11/2024 7.5 - 12.5 HHCCT WBC num Bld Auto 5.1 Thou/uL Normal 05/11/2024 4 - 11 HHCCT RDW RBC Auto-Rto 16.7 % Above high normal 05/11/2024 11.5 - 14.5 HHCCT MCV RBC Auto 104.0 fL Above high normal 05/11/2024 80 - 100 HHCCT MCHC RBC Auto-mCnc 31.4 g/dL Normal 05/11/2024 30 - 36 HHCCT Hct VFr Bld Auto 29.3 % Below low normal 05/11/2024 39 - 54 HHCCT MCH RBC Qn Auto 32.5 pg Above high normal 05/11/2024 27 - 31 HHCCT Calcium SerPl-mCnc 8.9 mg/dL Normal 05/10/2024 8.7 - 10.5 HHCCT Sodium SerPl-sCnc 136.0 mmol/L Normal 05/10/2024 136 - 14 5 HHCCT CO2 SerPl-sCnc 29.0 mmol/L Normal 05/10/2024 22 - 33 HH CCT Glucose SerPl-mCnc 126.0 mg/dL Above high normal 05/10/2024 65 - 99 HHCCT BUN/Creat SerPl 15.0 Ratio Normal 05/10/2024 10 - 25 HH CCT GFR/BSA.pred SerPlBld RJF-QON-NgLTvw 70.0 Normal 05/10/2024 59 - HHCCT BUN SerPl-mCnc 16.0 mg/dL Normal 05/10/2024 8 - [address] Potassium SerPl-sCnc 4.4 mmol/L Normal 05/10/2024 3.4 - 5.3 HHCCT Chloride SerPl-sCnc 97.0 mmol/L Below low normal 05/10/2024 98 - 107 HHCCT Anion Gap Bld-sCnc 10.0 Normal 05/10/2024 7 - 17 HHCCT Creat SerPl-mCnc 1.1 mg/dL Normal 05/10/2024 0.5 - 1.3 HH CCT MCH RBC Qn Auto 32.1 pg Above high normal 05/10/2024 27 - 31 HHCCT Hct VFr Bld Auto 30.0 % Below low normal 05/10/2024 39 - 54 HHCCT MCHC RBC Auto-mCnc 31.0 g/dL Normal 05/10/2024 30 - 36 HHCCT RBC num Bld Auto 2.9 Mil/uL Below low normal 05/10/2024 4.5 - 6.2 HHCCT Platelet num Bld Auto 249.0 Thou/uL Normal 05/10/2024 150 - 450 HHCCT WBC num Bld Auto 6.1 Thou/uL Normal 05/10/2024 4 - 11 HHCCT MCV RBC Auto 103.0 fL Above high normal 05/10/2024 80 - 100 HHCCT PMV Bld Auto 10.2 fL Normal 05/10/2024 7.5 - 12.5 HHCCT RDW RBC Auto-Rto 16.7 % Above high normal 05/10/2024 11.5 - 14.5 HHCCT Hgb Bld-mCnc 9.3 g/dL Below low normal 05/10/2024 13 - 17.7 HHCCT Glucose SerPl-mCnc 78.0 mg/dL Normal 05/08/2024 65 - 99 HHCCT GFR/BSA.pred SerPlBld TNH-JYC-EvWUws 89.0 Normal 05/08/2024 59 - HHCCT Creat SerPl-mCnc 0.9 mg/dL Normal 05/08/2024 0.5 - 1.3 HH CCT BUN SerPl-mCnc 13.0 mg/dL Normal 05/08/2024 8 - [address] Anion Gap Bld-sCnc 12.0 Normal 05/08/2024 7 - 17 HHCCT BUN/Creat SerPl 14.0 Ratio Normal 05/08/2024 10 - 25 HH CCT Sodium SerPl-sCnc 139.0 mmol/L Normal 05/08/2024 136 - 14 5 HHCCT Potassium SerPl-sCnc 4.4 mmol/L Normal 05/08/2024 3.4 - 5.3 HHCCT CO2 SerPl-sCnc 27.0 mmol/L Normal 05/08/2024 22 - 33 HH CCT Chloride SerPl-sCnc 100.0 mmol/L Normal 05/08/2024 98 - 1 07 HHCCT Calcium SerPl-mCnc 8.8 mg/dL Normal 05/08/2024 8.7 - 10.5 HHCCT Magnesium SerPl-mCnc 2.0 mg/dL Normal 05/08/2024 1.6 - 2.7 HHCCT Prothrombin time 11.2 seconds Normal 05/08/2024 10 - 13.5 HHCCT INR PPP 1.0 Normal 05/08/2024 HHCCT Anticoagulant SUB Q UNFRACTIONATED HEPARIN Normal 05/08/2024 HHCCT Hgb Bld-mCnc 8.2 g/dL Below low normal 05/08/2024 13 - 17.7 HHCCT Platelet num Bld Auto 192.0 Thou/uL Normal 05/08/2024 150 - 450 HHCCT RBC num Bld Auto 2.48 Mil/uL Below low normal 05/08/2024 4.5 - 6.2 HHCCT Hct VFr Bld Auto 25.8 % Below low normal 05/08/2024 39 - 54 HHCCT MCHC RBC Auto-mCnc 31.8 g/dL Normal 05/08/2024 30 - 36 HHCCT MCV RBC Auto 104.0 fL Above high normal 05/08/2024 80 - 100 HHCCT PMV Bld Auto 10.4 fL Normal 05/08/2024 7.5 - 12.5 HHCCT RDW RBC Auto-Rto 16.5 % Above high normal 05/08/2024 11.5 - 14.5 HHCCT WBC num Bld Auto 5.7 Thou/uL Normal 05/08/2024 4 - 11 HHCCT MCH RBC Qn Auto 33.1 pg Above high normal 05/08/2024 27 - 31 HHCCT Leukocyte esterase Ur Ql Strip Negative Normal 04/19/2024 - HHCCT pH Ur Strip 6.0 Normal 04/19/2024 5 - 8 HHCCT Sp Gr Ur Strip 1.017 Normal 04/19/2024 1.003 - 1.03 HHCCT Hgb Ur Ql Strip Negative Normal 04/19/2024 - [facility] CT Color Ur Yellow Normal 04/19/2024 HHCCT Glucose Ur Strip-mCnc 0.0 mg/dL Normal 04/19/2024 0 - 99 HHCCT Bilirub Ur Strip-mCnc Negative Normal 04/19/2024 - HHCCT RBC num/area UrnS HPF 0.0 per hpf Normal 04/19/2024 0 - 4 HHCCT Ketones Ur Strip-mCnc Negative Normal 04/19/2024 - CCT Clarity Ur Clear Normal 04/19/2024 HHCCT Nitrite Ur Ql Strip Negative Normal 04/19/2024 - CCT WBC num/area UrnS HPF 0.0 per hpf Normal 04/19/2024 0 - 4 HHCCT Prot Ur Strip-mCnc Negative Normal 04/19/2024 - CCT POC Glucose 251.0 mg/dL Above high normal 04/19/2024 65 - 99 HHCCT POC Glucose 93.0 mg/dL Normal 04/19/2024 65 - 99 HHCCT POC Glucose 178.0 mg/dL Above high normal 04/18/2024 65 - 99 HHCCT POC Glucose 139.0 mg/dL Above high normal 04/18/2024 65 - 99 HHCCT POC Glucose 158.0 mg/dL Above high normal 04/18/2024 65 - 99 HHCCT POC Glucose 154.0 mg/dL Above high normal 04/18/2024 65 - 99 HHCCT POC Glucose 140.0 mg/dL Above high normal 04/17/2024 65 - 99 HHCCT POC Glucose 280.0 mg/dL Above high normal 04/17/2024 65 - 99 HHCCT POC Glucose 156.0 mg/dL Above high normal 04/17/2024 65 - 99 HHCCT Vit B12 SerPl-mCnc 1263.0 pg/mL Above high normal 04/17/2024 243 - 894 HHCCT TIBC SerPl-mCnc 241.0 ug/dL Normal 04/17/2024 100 - 400 H HCCT Iron SerPl-mCnc 94.0 ug/dL Normal 04/17/2024 53 - 167 HH CCT UIBC SerPl-mCnc 147.0 ug/dL Normal 04/17/2024 112 - 346 H HCCT Iron Satn MFr SerPl 39.0 % Normal 04/17/2024 20 - 50 HHCCT Ferritin SerPl-mCnc 409.0 ug/L Above high normal 04/17/2024 30 - 400 HHCCT Retics/100 RBC NFr Auto 1.7 % Normal 04/17/2024 0.7 - 2 HHCCT Retics num Auto 44.0 Thou/uL Normal 04/17/2024 30 - 100 HHCCT Reticulocyte production index 1.0 % Normal 04/17/2024 1 - 2 HHCCT Hgb Retic Qn Auto 34.2 pg Normal 04/17/2024 28 - 35 H HCCT Immature Reticulocyte Fraction 8.8 % Normal 04/17/2024 2.3 - 15.9 HHCCT Magnesium SerPl-mCnc 2.3 mg/dL Normal 04/17/2024 1.6 - 2.7 HHCCT Phosphate SerPl-mCnc 2.9 mg/dL Normal 04/17/2024 2.7 - 4.5 HHCCT Anion Gap Bld-sCnc 7.0 Normal 04/17/2024 7 - 17 HHCCT Chloride SerPl-sCnc 97.0 mmol/L Below low normal 04/17/2024 98 - 107 HHCCT BUN SerPl-mCnc 27.0 mg/dL Above high normal 04/17/2024 8 - 2 1 HHCCT Potassium SerPl-sCnc 4.3 mmol/L Normal 04/17/2024 3.4 - 5.3 HHCCT CO2 SerPl-sCnc 34.0 mmol/L Above high normal 04/17/2024 22 - 33 HHCCT BUN/Creat SerPl 30.0 Ratio Above high normal 04/17/2024 10 - 25 HHCCT Sodium SerPl-sCnc 138.0 mmol/L Normal 04/17/2024 136 - 14 5 HHCCT Calcium SerPl-mCnc 8.8 mg/dL Normal 04/17/2024 8.7 - 10.5 HHCCT Creat SerPl-mCnc 0.9 mg/dL Normal 04/17/2024 0.5 - 1.3 HH CCT GFR/BSA.pred SerPlBld PXC-QBQ-AyTAkv 89.0 Normal 04/17/2024 59 - HHCCT Glucose SerPl-mCnc 173.0 mg/dL Above high normal 04/17/2024 65 - 99 HHCCT Hgb Bld-mCnc 8.3 g/dL Below low normal 04/17/2024 13 - 17.7 HHCCT Hct VFr Bld Auto 26.0 % Below low normal 04/17/2024 39 - 54 HHCCT RDW RBC Auto-Rto 15.5 % Above high normal 04/17/2024 11.5 - 14.5 HHCCT MCV RBC Auto 101.0 fL Above high normal 04/17/2024 80 - 100 HHCCT MCHC RBC Auto-mCnc 31.9 g/dL Normal 04/17/2024 30 - 36 HHCCT RBC num Bld Auto 2.58 Mil/uL Below low normal 04/17/2024 4.5 - 6.2 HHCCT WBC num Bld Auto 7.5 Thou/uL Normal 04/17/2024 4 - 11 HHCCT PMV Bld Auto 10.6 fL Normal 04/17/2024 7.5 - 12.5 HHCCT Platelet num Bld Auto 196.0 Thou/uL Normal 04/17/2024 150 - 450 HHCCT MCH RBC Qn Auto 32.2 pg Above high normal 04/17/2024 27 - 31 HHCCT POC Glucose 157.0 mg/dL Above high normal 04/16/2024 65 - 99 HHCCT BUN SerPl-mCnc 29.0 mg/dL Above high normal 04/16/2024 8 - 2 1 HHCCT BUN/Creat SerPl 32.0 Ratio Above high normal 04/16/2024 10 - 25 HHCCT Glucose SerPl-mCnc 231.0 mg/dL Above high normal 04/16/2024 65 - 99 HHCCT Potassium SerPl-sCnc 4.4 mmol/L Normal 04/16/2024 3.4 - 5.3 HHCCT Anion Gap Bld-sCnc 8.0 Normal 04/16/2024 7 - 17 HHCCT GFR/BSA.pred SerPlBld [id number] 89.0 Normal 04/16/2024 59 - HHCCT CO2 SerPl-sCnc 34.0 mmol/L Above high normal 04/16/2024 22 - 33 HHCCT Creat SerPl-mCnc 0.9 mg/dL Normal 04/16/2024 0.5 - 1.3 HH CCT Chloride SerPl-sCnc 93.0 mmol/L Below low normal 04/16/2024 98 - 107 HHCCT Calcium SerPl-mCnc 8.9 mg/dL Normal 04/16/2024 8.7 - 10.5 HHCCT Sodium SerPl-sCnc 135.0 mmol/L Below low normal 04/16/2024 1 36 - 145 HHCCT Magnesium SerPl-mCnc 2.0 mg/dL Normal 04/16/2024 1.6 - 2.7 HHCCT Phosphate SerPl-mCnc 2.8 mg/dL Normal 04/16/2024 2.7 - 4.5 HHCCT POC Glucose 218.0 mg/dL Above high normal 04/16/2024 65 - 99 HHCCT LMWH PPP Doorperson Or Luggage Porter-aCnc 0.73 IU/mL Normal 04/16/2024 HHCCT Anticoagulant IV HEPARIN, UNFRACTIONATED Normal 04/16/2024 HHCCT POC Glucose 176.0 mg/dL Above high normal 04/16/2024 65 - 99 HHCCT LMWH PPP Doorperson Or Luggage Porter-aCnc 0.72 IU/mL Normal 04/16/2024 HHCCT Anticoagulant IV HEPARIN, UNFRACTIONATED Normal 04/15/2024 HHCCT Phosphate SerPl-mCnc 3.1 mg/dL Normal 04/16/2024 2.7 - 4.5 HHCCT Chloride SerPl-sCnc 96.0 mmol/L Below low normal 04/16/2024 98 - 107 HHCCT Potassium SerPl-sCnc 4.3 mmol/L Normal 04/16/2024 3.4 - 5.3 HHCCT Calcium SerPl-mCnc 8.8 mg/dL Normal 04/16/2024 8.7 - 10.5 HHCCT Creat SerPl-mCnc 0.9 mg/dL Normal 04/16/2024 0.5 - 1.3 HH CCT BUN/Creat SerPl 28.0 Ratio Above high normal 04/16/2024 10 - 25 HHCCT Sodium SerPl-sCnc 138.0 mmol/L Normal 04/16/2024 136 - 14 5 HHCCT Glucose SerPl-mCnc 177.0 mg/dL Above high normal 04/16/2024 65 - 99 HHCCT Anion Gap Bld-sCnc 12.0 Normal 04/16/2024 7 - 17 HHCCT CO2 SerPl-sCnc 30.0 mmol/L Normal 04/16/2024 22 - 33 HH CCT GFR/BSA.pred SerPlBld IFN-HVR-EiFIcp 89.0 Normal 04/16/2024 59 - HHCCT BUN SerPl-mCnc 25.0 mg/dL Above high normal 04/16/2024 8 - 2 1 HHCCT Troponin T SerPl-mCnc 17.0 ng/L Normal 04/16/2024 - 23 HHCCT Delta NO PREVIOUS RESULT Normal 04/16/2024 - 3 HHCCT Magnesium SerPl-mCnc 2.1 mg/dL Normal 04/16/2024 1.6 - 2.7 HHCCT Platelet num Bld Auto 207.0 Thou/uL Normal 04/16/2024 150 - 450 HHCCT RDW RBC Auto-Rto 15.6 % Above high normal 04/16/2024 11.5 - 14.5 HHCCT MCHC RBC Auto-mCnc 32.4 g/dL Normal 04/16/2024 30 - 36 HHCCT PMV Bld Auto 11.0 fL Normal 04/16/2024 7.5 - 12.5 HHCCT MCV RBC Auto 101.0 fL Above high normal 04/16/2024 80 - 100 HHCCT WBC num Bld Auto 11.3 Thou/uL Above high normal 04/16/2024 4 - 11 HHCCT RBC num Bld Auto 2.53 Mil/uL Below low normal 04/16/2024 4.5 - 6.2 HHCCT Hct VFr Bld Auto 25.6 % Below low normal 04/16/2024 39 - 54 HHCCT MCH RBC Qn Auto 32.8 pg Above high normal 04/16/2024 27 - 31 HHCCT Hgb Bld-mCnc 8.3 g/dL Below low normal 04/16/2024 13 - 17.7 HHCCT POC Glucose 205.0 mg/dL Above high normal 04/16/2024 65 - 99 HHCCT POC Glucose 164.0 mg/dL Above high normal 04/15/2024 65 - 99 HHCCT Sodium SerPl-sCnc 137.0 mmol/L Normal 04/15/2024 136 - 14 5 HHCCT Glucose SerPl-mCnc 201.0 mg/dL Above high normal 04/15/2024 65 - 99 HHCCT GFR/BSA.pred SerPlBld [id number] 89.0 Normal 04/15/2024 59 - HHCCT Chloride SerPl-sCnc 95.0 mmol/L Below low normal 04/15/2024 98 - 107 HHCCT CO2 SerPl-sCnc 31.0 mmol/L Normal 04/15/2024 22 - 33 HH CCT Creat SerPl-mCnc 0.9 mg/dL Normal 04/15/2024 0.5 - 1.3 HH CCT BUN SerPl-mCnc 22.0 mg/dL Above high normal 04/15/2024 8 - 2 1 HHCCT Potassium SerPl-sCnc 4.2 mmol/L Normal 04/15/2024 3.4 - 5.3 HHCCT Anion Gap Bld-sCnc 11.0 Normal 04/15/2024 7 - 17 HHCCT Calcium SerPl-mCnc 8.9 mg/dL Normal 04/15/2024 8.7 - 10.5 HHCCT BUN/Creat SerPl 24.0 Ratio Normal 04/15/2024 10 - 25 HH CCT Magnesium SerPl-mCnc 2.0 mg/dL Normal 04/15/2024 1.6 - 2.7 HHCCT Phosphate SerPl-mCnc 2.8 mg/dL Normal 04/15/2024 2.7 - 4.5 HHCCT POC Glucose 270.0 mg/dL Above high normal 04/15/2024 65 - 99 HHCCT POC Glucose 254.0 mg/dL Above high normal 04/15/2024 65 - 99 HHCCT POC Glucose 178.0 mg/dL Above high normal 04/15/2024 65 - 99 HHCCT LMWH PPP Doorperson Or Luggage Porter-aCnc 0.52 IU/mL Normal 04/15/2024 HHCCT Anticoagulant IV HEPARIN, UNFRACTIONATED Normal 04/14/2024 HHCCT Calcium SerPl-mCnc 8.6 mg/dL Below low normal 04/15/2024 8.7 - 10.5 HHCCT CO2 SerPl-sCnc 28.0 mmol/L Normal 04/15/2024 22 - 33 HH CCT Glucose SerPl-mCnc 176.0 mg/dL Above high normal 04/15/2024 65 - 99 HHCCT Creat SerPl-mCnc 0.9 mg/dL Normal 04/15/2024 0.5 - 1.3 HH CCT GFR/BSA.pred SerPlBld [id number] 89.0 Normal 04/15/2024 59 - HHCCT Sodium SerPl-sCnc 136.0 mmol/L Normal 04/15/2024 136 - 14 5 HHCCT Potassium SerPl-sCnc 4.5 mmol/L Normal 04/15/2024 3.4 - 5.3 HHCCT Anion Gap Bld-sCnc 10.0 Normal 04/15/2024 7 - 17 HHCCT BUN SerPl-mCnc 20.0 mg/dL Normal 04/15/2024 8 - [address] Chloride SerPl-sCnc 98.0 mmol/L Normal 04/15/2024 98 - 10 7 HHCCT BUN/Creat SerPl 22.0 Ratio Normal 04/15/2024 10 - 25 HH CCT Magnesium SerPl-mCnc 1.9 mg/dL Normal 04/15/2024 1.6 - 2.7 HHCCT Phosphate SerPl-mCnc 3.6 mg/dL Normal 04/15/2024 2.7 - 4.5 HHCCT MCV RBC Auto 100.0 fL Normal 04/15/2024 80 - 100 HHCCT MCHC RBC Auto-mCnc 32.5 g/dL Normal 04/15/2024 30 - 36 HHCCT RDW RBC Auto-Rto 15.4 % Above high normal 04/15/2024 11.5 - 14.5 HHCCT PMV Bld Auto 11.0 fL Normal 04/15/2024 7.5 - 12.5 HHCCT WBC num Bld Auto 7.7 Thou/uL Normal 04/15/2024 4 - 11 HHCCT Hgb Bld-mCnc 8.3 g/dL Below low normal 04/15/2024 13 - 17.7 HHCCT Hct VFr Bld Auto 25.5 % Below low normal 04/15/2024 39 - 54 HHCCT RBC num Bld Auto 2.56 Mil/uL Below low normal 04/15/2024 4.5 - 6.2 HHCCT MCH RBC Qn Auto 32.4 pg Above high normal 04/15/2024 27 - 31 HHCCT Platelet num Bld Auto 204.0 Thou/uL Normal 04/15/2024 150 - 450 HHCCT POC Glucose 208.0 mg/dL Above high normal 04/14/2024 65 - 99 HHCCT pH BldV 7.32 Below low normal 04/14/2024 7.33 - 7.43 HHCCT Base excess BldA Calc-sCnc 4.0 mmol/L Normal 04/14/2024 HHCCT pO2 BldV 91.0 mmHG Above high normal 04/14/2024 0 - 60 H HCCT CO2 BldV-sCnc 32.0 mmol/L Above high normal 04/14/2024 23 - 29 HHCCT pCO2 BldV 62.0 mmHG Above high normal 04/14/2024 35 - 50 H HCCT Respiratory Information OTHER Normal 04/14/2024 HHCCT Phosphate SerPl-mCnc 3.8 mg/dL Normal 04/14/2024 2.7 - 4.5 HHCCT Prot SerPl-mCnc 6.7 g/dL Normal 04/14/2024 6.3 - 8.[address] Calcium SerPl-mCnc 9.2 mg/dL Normal 04/14/2024 8.7 - 10.5 HHCCT Albumin/Glob SerPl 1.0 Ratio Normal 04/14/2024 1 - 3 HHCCT AST SerPl-cCnc 17.0 U/L Normal 04/14/2024 10 - 55 HHCC T CO2 SerPl-sCnc 30.0 mmol/L Normal 04/14/2024 22 - 33 HH CCT Chloride SerPl-sCnc 98.0 mmol/L Normal 04/14/2024 98 - 10 7 HHCCT GFR/BSA.pred SerPlBld [id number] >90.0 Normal 04/14/2024 59 - HHCCT Bilirub SerPl-mCnc 0.2 mg/dL Normal 04/14/2024 0.2 - 1 HHCCT ALP SerPl-cCnc 75.0 U/L Normal 04/14/2024 45 - 128 HH[facility] T Potassium SerPl-sCnc 4.8 mmol/L Normal 04/14/2024 3.4 - 5.3 HHCCT BUN SerPl-mCnc 12.0 mg/dL Normal 04/14/2024 8 - [address] Anion Gap Bld-sCnc 9.0 Normal 04/14/2024 7 - 17 HHCCT Globulin Ser Calc-mCnc 3.4 g/dL Normal 04/14/2024 1.5 - 3.9 HHCCT Sodium SerPl-sCnc 137.0 mmol/L Normal 04/14/2024 136 - 14 5 HHCCT Albumin SerPl-mCnc 3.3 g/dL Below low normal 04/14/2024 3.4 - 4.8 HHCCT Glucose SerPl-mCnc 187.0 mg/dL Above high normal 04/14/2024 65 - 99 HHCCT BUN/Creat SerPl 17.0 Ratio Normal 04/14/2024 10 - 25 HH CCT Creat SerPl-mCnc 0.7 mg/dL Normal 04/14/2024 0.5 - 1.3 HH CCT ALT SerPl-cCnc 21.0 U/L Normal 04/14/2024 10 - 55 HH[facility] T Magnesium SerPl-mCnc 1.9 mg/dL Normal 04/14/2024 1.6 - 2.7 HHCCT LMWH PPP Doorperson Or Luggage Porter-aCnc 0.52 IU/mL Normal 04/14/2024 HHCCT Anticoagulant IV HEPARIN, UNFRACTIONATED Normal 04/14/2024 HHCCT MCH RBC Qn Auto 32.1 pg Above high normal 04/14/2024 27 - 31 HHCCT Monocytes/leuk NFr Bld Auto 2.3 % Normal 04/14/2024 HHCCT Imm Granulocytes num Bld Auto 0.02 Thou/uL Normal 04/14/2024 0 - 0.1 HHCCT Imm Granulocytes/leuk NFr Bld Auto 0.8 % Normal 04/14/2024 HHCCT WBC num Bld Auto 2.7 Thou/uL Below low normal 04/14/2024 4 - 11 HHCCT Neutrophils/leuk NFr Bld Auto 79.9 % Normal 04/14/2024 HHCCT RDW RBC Auto-Rto 15.2 % Above high normal 04/14/2024 11.5 - 14.5 HHCCT Lymphocytes num Bld Auto 0.45 Thou/uL Below low normal 04/14/2024 1.5 - 4.5 HHCCT MCV RBC Auto 100.0 fL Normal 04/14/2024 80 - 100 HHCCT Neutrophils num Bld Auto 2.12 Thou/uL Normal 04/14/2024 2 - 7.5 HHCCT Lymphocytes/leuk NFr Bld Auto 17.0 % Normal 04/14/2024 HHCCT Eosinophil/leuk NFr Bld Auto 0.0 % Normal 04/14/2024 HHCCT Platelet num Bld Auto 201.0 Thou/uL Normal 04/14/2024 150 - 450 HHCCT Eosinophil num Bld Auto 0.0 Thou/uL Normal 04/14/2024 0 - 0.7 HHCCT MCHC RBC Auto-mCnc 32.0 g/dL Normal 04/14/2024 30 - 36 HHCCT Hgb Bld-mCnc 8.9 g/dL Below low normal 04/14/2024 13 - 17.7 HHCCT PMV Bld Auto 10.3 fL Normal 04/14/2024 7.5 - 12.5 HHCCT RBC num Bld Auto 2.77 Mil/uL Below low normal 04/14/2024 4.5 - 6.2 HHCCT Monocytes num Bld Auto 0.06 Thou/uL Below low normal 04/14/2024 0.2 - 1.5 HHCCT Basophils/leuk NFr Bld Auto 0.0 % Normal 04/14/2024 HHCCT Hct VFr Bld Auto 27.8 % Below low normal 04/14/2024 39 - 54 HHCCT Basophils num Bld Auto 0.0 Thou/uL Normal 04/14/2024 0 - 0.2 [facility] LMWH PPP Doorperson Or Luggage Porter-aCnc 0.32 IU/mL Normal 04/13/2024 [facility]CT Anticoagulant IV HEPARIN, UNFRACTIONATED Normal 04/13/2024 H[facility]CT Folate SerPl-mCnc 12.3 ng/mL Normal 04/13/2024 7.2 - HHCCT Phosphate SerPl-mCnc 3.6 mg/dL Normal 04/13/2024 2.7 - 4.5 H[facility]CT LMWH PPP Doorperson Or Luggage Porter-aCnc 0.44 IU/mL Normal 04/13/2024 [facility]CT Anticoagulant IV HEPARIN, UNFRACTIONATED Normal 04/13/2024 H[facility]CT BUN/Creat SerPl 12.0 Ratio Normal 04/13/2024 10 - 25 HH CCT Potassium SerPl-sCnc 4.4 mmol/L Normal 04/13/2024 3.4 - 5.3 HHCCT CO2 SerPl-sCnc 31.0 mmol/L Normal 04/13/2024 22 - 33 HH CCT Glucose SerPl-mCnc 119.0 mg/dL Above high normal 04/13/2024 65 - 99 HHCCT ALT SerPl-cCnc 20.0 U/L Normal 04/13/2024 10 - 55 HHCC T GFR/BSA.pred SerPlBld [id number] 89.0 Normal 04/13/2024 59 - HHCCT Creat SerPl-mCnc 0.9 mg/dL Normal 04/13/2024 0.5 - 1.3 HH CCT ALP SerPl-cCnc 61.0 U/L Normal 04/13/2024 45 - 128 HHCC T Prot SerPl-mCnc 5.6 g/dL Below low normal 04/13/2024 6.3 - 8.3 HHCCT Anion Gap Bld-sCnc 6.0 Below low normal 04/13/2024 7 - 17 H[facility]CT Albumin/Glob SerPl 1.1 Ratio Normal 04/13/2024 1 - 3 HHCCT AST SerPl-cCnc 18.0 U/L Normal 04/13/2024 10 - 55 HH[facility] T Globulin Ser Calc-mCnc 2.7 g/dL Normal 04/13/2024 1.5 - 3.9 HHCCT Bilirub SerPl-mCnc 0.2 mg/dL Normal 04/13/2024 0.2 - 1 H[facility]CT Sodium SerPl-sCnc 136.0 mmol/L Normal 04/13/2024 136 - 14 5 H[facility]CT BUN SerPl-mCnc 11.0 mg/dL Normal 04/13/2024 8 - [address] Albumin SerPl-mCnc 2.9 g/dL Below low normal 04/13/2024 3.4 - 4.8 HHCCT Calcium SerPl-mCnc 8.5 mg/dL Below low normal 04/13/2024 8.7 - 10.5 HHCCT Chloride SerPl-sCnc 99.0 mmol/L Normal 04/13/2024 98 - 10 7 HHCCT Magnesium SerPl-mCnc 1.9 mg/dL Normal 04/13/2024 1.6 - 2.7 HHCCT pO2 BldV 85.0 mmHG Above high normal 04/13/2024 0 - 60 H HCCT pCO2 BldV 64.0 mmHG Above high normal 04/13/2024 35 - 50 H HCCT Base excess BldA Calc-sCnc 3.8 mmol/L Normal 04/13/2024 HHCCT pH BldV 7.3 Below low normal 04/13/2024 7.33 - 7.43 HHCCT CO2 BldV-sCnc 32.0 mmol/L Above high normal 04/13/2024 23 - 29 H[facility]CT Respiratory Information NASAL 6 L/MIN Normal 04/13/2024 H[facility]CT Platelet num Bld Auto 158.0 Thou/uL Normal 04/13/2024 150 - 450 H[facility]CT Lymphocytes num Bld Auto 1.0 Thou/uL Below low normal 04/13/2024 1.5 - 4.5 HHCCT PMV Bld Auto 10.3 fL Normal 04/13/2024 7.5 - 12.5 HHCCT Neutrophils/leuk NFr Bld Auto 51.9 % Normal 04/13/2024 H[facility]CT Monocytes/leuk NFr Bld Auto 10.3 % Normal 04/13/2024 HHCCT Imm Granulocytes num Bld Auto 0.05 Thou/uL Normal 04/13/2024 0 - 0.1 HHCCT RDW RBC Auto-Rto 15.9 % Above high normal 04/13/2024 11.5 - 14.5 HHCCT MCHC RBC Auto-mCnc 31.8 g/dL Normal 04/13/2024 30 - 36 H[facility]CT Lymphocytes/leuk NFr Bld Auto 20.1 % Normal 04/13/2024 H[facility]CT Neutrophils num Bld Auto 2.58 Thou/uL Normal 04/13/2024 2 - 7.5 HHCCT Hct VFr Bld Auto 24.2 % Below low normal 04/13/2024 39 - 54 H[facility]CT WBC num Bld Auto 5.0 Thou/uL Normal 04/13/2024 4 - 11 H[facility]CT Eosinophil/leuk NFr Bld Auto 16.1 % Normal 04/13/2024 HHCCT Basophils/leuk NFr Bld Auto 0.6 % Normal 04/13/2024 H[facility]CT Eosinophil num Bld Auto 0.8 Thou/uL Above high normal 04/13/2024 0 - 0.7 HHCCT RBC num Bld Auto 2.35 Mil/uL Below low normal 04/13/2024 4.5 - 6.2 HHCCT Hgb Bld-mCnc 7.7 g/dL Below low normal 04/13/2024 13 - 17.7 HHCCT MCH RBC Qn Auto 32.8 pg Above high normal 04/13/2024 27 - 31 HHCCT Basophils num Bld Auto 0.03 Thou/uL Normal 04/13/2024 0 - 0.2 HHCCT Monocytes num Bld Auto 0.51 Thou/uL Normal 04/13/2024 0.2 - 1.5 HHCCT MCV RBC Auto 103.0 fL Above high normal 04/13/2024 80 - 100 H[facility]CT Imm Granulocytes/leuk NFr Bld Auto 1.0 % Normal 04/13/2024 HHCCT pH, Arterial 7.41 Normal 04/13/2024 7.35 - 7.45 HH[facility] T Base excess BldA Calc-sCnc 6.3 mmol/L Normal 04/13/2024 HHCCT pO2, Arterial 69.0 mmHG Below low normal 04/13/2024 75 - 95 HHCCT pCO2, Arterial 51.0 mmHG Above high normal 04/13/2024 32 - 4 5 HHCCT Total CO2, Arterial 33.0 mmol/L Above high normal 04/13/2024 22 - 28 H[facility]CT Respiratory Information OTHER Normal 04/13/2024 HHCCT Vit B12 SerPl-mCnc 1271.0 pg/mL Above high normal 04/13/2024 243 - 894 H[facility]CT LMWH PPP Doorperson Or Luggage Porter-aCnc 0.25 IU/mL Normal 04/13/2024 HHCCT Anticoagulant IV HEPARIN, UNFRACTIONATED Normal 04/12/2024 HHCCT Albumin SerPl-mCnc 3.3 g/dL Below low normal 04/13/2024 3.4 - 4.8 HHCCT pro BNP, N-terminal 381.0 pg/mL Normal 04/13/2024 - 450 H[facility]CT Troponin T SerPl-mCnc 37.0 ng/L Above high normal 04/13/2024 - 23 HHCCT Delta NO PREVIOUS RESULT Normal 04/13/2024 - 3 HHCCT Total CO2, Arterial 32.0 mmol/L Above high normal 04/13/2024 22 - 28 HHCCT pCO2, Arterial 66.0 mmHG Above high normal 04/13/2024 32 - 4 5 HHCCT Base excess BldA Calc-sCnc 3.0 mmol/L Normal 04/13/2024 HHCCT pO2, Arterial 196.0 mmHG Above high normal 04/13/2024 75 - 9 5 HHCCT pH, Arterial 7.28 Below low normal 04/13/2024 7.35 - 7. 45 HHCCT Respiratory Information NASAL 6 L/MIN Normal 04/13/2024 HHCCT Hgb Bld-mCnc 8.4 g/dL Below low normal 04/13/2024 13 - 17.7 HHCCT WBC num Bld Auto 6.0 Thou/uL Normal 04/13/2024 4 - 11 HHCCT PMV Bld Auto 10.5 fL Normal 04/13/2024 7.5 - 12.5 HHCCT MCH RBC Qn Auto 32.9 pg Above high normal 04/13/2024 27 - 31 HHCCT MCV RBC Auto 102.0 fL Above high normal 04/13/2024 80 - 100 H[facility]CT RBC num Bld Auto 2.55 Mil/uL Below low normal 04/13/2024 4.5 - 6.2 HHCCT Hct VFr Bld Auto 26.1 % Below low normal 04/13/2024 39 - 54 H[facility]CT Platelet num Bld Auto 172.0 Thou/uL Normal 04/13/2024 150 - 450 HHCCT MCHC RBC Auto-mCnc 32.2 g/dL Normal 04/13/2024 30 - 36 HHCCT RDW RBC Auto-Rto 15.9 % Above high normal 04/13/2024 11.5 - 14.5 HHCCT BUN SerPl-mCnc 14.0 mg/dL Normal 04/12/2024 8 - [address] BUN/Creat SerPl 14.0 Ratio Normal 04/12/2024 10 - 25 HH CCT Calcium SerPl-mCnc 9.0 mg/dL Normal 04/12/2024 8.7 - 10.5 HHCCT Creat SerPl-mCnc 1.0 mg/dL Normal 04/12/2024 0.5 - 1.3 HH CCT CO2 SerPl-sCnc 31.0 mmol/L Normal 04/12/2024 22 - 33 HH CCT Glucose SerPl-mCnc 131.0 mg/dL Above high normal 04/12/2024 65 - 99 HHCCT GFR/BSA.pred SerPlBld [id number] 78.0 Normal 04/12/2024 59 - HHCCT Chloride SerPl-sCnc 94.0 mmol/L Below low normal 04/12/2024 98 - 107 HHCCT Sodium SerPl-sCnc 133.0 mmol/L Below low normal 04/12/2024 1 36 - 145 HHCCT Anion Gap Bld-sCnc 8.0 Normal 04/12/2024 7 - 17 HHCCT Potassium SerPl-sCnc 4.6 mmol/L Normal 04/12/2024 3.4 - 5.3 HHCCT pro BNP, N-terminal 333.0 pg/mL Normal 04/11/2024 - 450 H[facility]CT LMWH PPP Doorperson Or Luggage Porter-aCnc 0.04 IU/mL Normal 04/11/2024 HHCCT Anticoagulant IV HEPARIN, UNFRACTIONATED Normal 04/11/2024 H[facility]CT Platelet num Bld Auto 196.0 Thou/uL Normal 04/11/2024 150 - 450 H[facility]CT Lymphocytes/leuk NFr Bld Auto 19.9 % Normal 04/11/2024 HHCCT Basophils/leuk NFr Bld Auto 0.7 % Normal 04/11/2024 HHCCT PMV Bld Auto 11.1 fL Normal 04/11/2024 7.5 - 12.5 HHCCT MCHC RBC Auto-mCnc 31.7 g/dL Normal 04/11/2024 30 - 36 H[facility]CT RDW RBC Auto-Rto 15.9 % Above high normal 04/11/2024 11.5 - 14.5 HHCCT Neutrophils num Bld Auto 3.22 Thou/uL Normal 04/11/2024 2 - 7.5 HHCCT RBC num Bld Auto 2.86 Mil/uL Below low normal 04/11/2024 4.5 - 6.2 HHCCT Hct VFr Bld Auto 29.0 % Below low normal 04/11/2024 39 - 54 [facility]CT Neutrophils/leuk NFr Bld Auto 53.9 % Normal 04/11/2024 HHCCT Basophils num Bld Auto 0.04 Thou/uL Normal 04/11/2024 0 - 0.2 HHCCT Imm Granulocytes/leuk NFr Bld Auto 1.5 % Normal 04/11/2024 HHCCT WBC num Bld Auto 6.0 Thou/uL Normal 04/11/2024 4 - 11 HHCCT MCH RBC Qn Auto 32.2 pg Above high normal 04/11/2024 27 - 31 H[facility]CT Imm Granulocytes num Bld Auto 0.09 Thou/uL Normal 04/11/2024 0 - 0.1 HHCCT Hgb Bld-mCnc 9.2 g/dL Below low normal 04/11/2024 13 - 17.7 HHCCT Eosinophil/leuk NFr Bld Auto 12.5 % Normal 04/11/2024 HHCCT Eosinophil num Bld Auto 0.75 Thou/uL Above high normal 04/11/2024 0 - 0.7 HHCCT MCV RBC Auto 101.0 fL Above high normal 04/11/2024 80 - 100 H[facility]CT Monocytes/leuk NFr Bld Auto 11.5 % Normal 04/11/2024 HHCCT Monocytes num Bld Auto 0.69 Thou/uL Normal 04/11/2024 0.2 - 1.5 HHCCT Lymphocytes num Bld Auto 1.19 Thou/uL Below low normal 04/11/2024 1.5 - 4.5 HHCCT pCO2 BldV 52.0 mmHG Above high normal 04/11/2024 35 - 50 H [facility]CT pO2 BldV 269.0 mmHG Above high normal 04/11/2024 0 - 60 HHCCT pH BldV 7.37 Normal 04/11/2024 7.33 - 7.43 HHCCT CO2 BldV-sCnc 31.0 mmol/L Above high normal 04/11/2024 23 - [address] VFr BldV Calc 13.2 mL/dL Normal 04/11/2024 7.2 - 17 .2 HHCCT MetHgb MFr Bld 0.5 % Normal 04/11/2024 0.4 - 1.5 HH[facility] T Hgb BldA-mCnc 9.2 g/dL Below low normal 04/11/2024 13 - 17. 7 HHCCT SaO2 % BldV from pO2 >100.0 % Normal 04/11/2024 HHCCT Base excess BldA Calc-sCnc 4.0 mmol/L Normal 04/11/2024 HHCCT COHgb MFr BldA 2.4 % Above high normal 04/11/2024 0 - 2 H[facility]CT Respiratory Information NASAL 5 L/MIN Normal 04/11/2024 HHCCT LMWH PPP Doorperson Or Luggage Porter-aCnc 0.59 IU/mL Normal 04/10/2024 HHCCT Anticoagulant IV HEPARIN, UNFRACTIONATED Normal 04/10/2024 H[facility]CT LMWH PPP Doorperson Or Luggage Porter-aCnc 0.46 IU/mL Normal 04/09/2024 HHCCT Anticoagulant IV HEPARIN, UNFRACTIONATED Normal 04/09/2024 HHCCT LMWH PPP Doorperson Or Luggage Porter-aCnc 0.52 IU/mL Normal 04/09/2024 HHCCT Anticoagulant IV HEPARIN, UNFRACTIONATED Normal 04/09/2024 HHCCT Magnesium SerPl-mCnc 1.9 mg/dL Normal 04/09/2024 1.6 - 2.7 HHCCT Troponin T SerPl-mCnc 41.0 ng/L Above high normal 04/09/2024 - 23 HHCCT Delta 5.0 Above high normal 04/09/2024 - 3 H HCCT CO2 SerPl-sCnc 29.0 mmol/L Normal 04/09/2024 22 - 33 HH CCT BUN SerPl-mCnc 11.0 mg/dL Normal 04/09/2024 8 - [address] Creat SerPl-mCnc 0.9 mg/dL Normal 04/09/2024 0.5 - 1.3 HH CCT Anion Gap Bld-sCnc 10.0 Normal 04/09/2024 7 - 17 HHCCT Potassium SerPl-sCnc 4.2 mmol/L Normal 04/09/2024 3.4 - 5.3 HHCCT Chloride SerPl-sCnc 99.0 mmol/L Normal 04/09/2024 98 - 10 7 HHCCT GFR/BSA.pred SerPlBld [id number] 89.0 Normal 04/09/2024 59 - HHCCT BUN/Creat SerPl 12.0 Ratio Normal 04/09/2024 10 - 25 HH CCT Sodium SerPl-sCnc 138.0 mmol/L Normal 04/09/2024 136 - 14 5 HHCCT Glucose SerPl-mCnc 93.0 mg/dL Normal 04/09/2024 65 - 99 H[facility]CT Calcium SerPl-mCnc 9.1 mg/dL Normal 04/09/2024 8.7 - 10.5 HHCCT Imm Granulocytes/leuk NFr Bld Auto 1.6 % Normal 04/09/2024 HHCCT Basophils num Bld Auto 0.07 Thou/uL Normal 04/09/2024 0 - 0.2 HHCCT RBC num Bld Auto 3.37 Mil/uL Below low normal 04/09/2024 4.5 - 6.2 HHCCT Imm Granulocytes num Bld Auto 0.13 Thou/uL Above high normal 04/09/2024 0 - 0.1 HHCCT RDW RBC Auto-Rto 16.0 % Above high normal 04/09/2024 11.5 - 14.5 HHCCT Neutrophils/leuk NFr Bld Auto 60.4 % Normal 04/09/2024 HHCCT Hct VFr Bld Auto 35.1 % Below low normal 04/09/2024 39 - 54 HHCCT Lymphocytes/leuk NFr Bld Auto 17.4 % Normal 04/09/2024 HHCCT Hgb Bld-mCnc 10.8 g/dL Below low normal 04/09/2024 13 - 17.7 HHCCT Eosinophil num Bld Auto 1.04 Thou/uL Above high normal 04/09/2024 0 - 0.7 HHCCT Lymphocytes num Bld Auto 1.45 Thou/uL Below low normal 04/09/2024 1.5 - 4.5 HHCCT MCHC RBC Auto-mCnc 30.8 g/dL Normal 04/09/2024 30 - 36 HHCCT MCV RBC Auto 104.0 fL Above high normal 04/09/2024 80 - 100 HHCCT MCH RBC Qn Auto 32.0 pg Above high normal 04/09/2024 27 - 31 HHCCT PMV Bld Auto 10.5 fL Normal 04/09/2024 7.5 - 12.5 HHCCT Basophils/leuk NFr Bld Auto 0.8 % Normal 04/09/2024 HHCCT Eosinophil/leuk NFr Bld Auto 12.5 % Normal 04/09/2024 HHCCT Monocytes num Bld Auto 0.61 Thou/uL Normal 04/09/2024 0.2 - 1.5 HHCCT Monocytes/leuk NFr Bld Auto 7.3 % Normal 04/09/2024 HHCCT Neutrophils num Bld Auto 5.04 Thou/uL Normal 04/09/2024 2 - 7.5 HHCCT Platelet num Bld Auto 247.0 Thou/uL Normal 04/09/2024 150 - 450 H[facility]CT WBC num Bld Auto 8.3 Thou/uL Normal 04/09/2024 4 - 11 H[facility]CT LMWH PPP Doorperson Or Luggage Porter-aCnc 0.58 IU/mL Normal 04/09/2024 HHCCT Anticoagulant IV HEPARIN, UNFRACTIONATED Normal 04/09/2024 HHCCT CO2 BldV-sCnc 33.0 mmol/L Above high normal 04/09/2024 23 - 29 HHCCT pH BldV 7.35 Normal 04/09/2024 7.33 - 7.43 HHCCT pCO2 BldV 58.0 mmHG Above high normal 04/09/2024 35 - 50 H HCCT pO2 BldV 46.0 mmHG Normal 04/09/2024 0 - 60 HHCCT Base excess BldA Calc-sCnc 4.9 mmol/L Normal 04/09/2024 HHCCT Respiratory Information NASAL 4 L/MIN Normal 04/09/2024 HHCCT Troponin T SerPl-mCnc 36.0 ng/L Above high normal 04/09/2024 - 23 HHCCT Delta NO PREVIOUS RESULT Normal 04/09/2024 - 3 HHCCT Neutrophils num Bld Auto 5.22 Thou/uL Normal 04/09/2024 2 - 7.5 HHCCT RBC num Bld Auto 3.29 Mil/uL Below low normal 04/09/2024 4.5 - 6.2 HHCCT Basophils/leuk NFr Bld Auto 1.0 % Normal 04/09/2024 HHCCT Monocytes num Bld Auto 0.62 Thou/uL Normal 04/09/2024 0.2 - 1.5 HHCCT Imm Granulocytes/leuk NFr Bld Auto 1.5 % Normal 04/09/2024 HHCCT PMV Bld Auto 10.4 fL Normal 04/09/2024 7.5 - 12.5 HHCCT Hgb Bld-mCnc 10.8 g/dL Below low normal 04/09/2024 13 - 17.7 HHCCT RDW RBC Auto-Rto 16.0 % Above high normal 04/09/2024 11.5 - 14.5 HHCCT WBC num Bld Auto 8.2 Thou/uL Normal 04/09/2024 4 - 11 HHCCT Neutrophils/leuk NFr Bld Auto 63.4 % Normal 04/09/2024 HHCCT Basophils num Bld Auto 0.08 Thou/uL Normal 04/09/2024 0 - 0.2 HHCCT Eosinophil num Bld Auto 0.86 Thou/uL Above high normal 04/09/2024 0 - 0.7 HHCCT MCV RBC Auto 103.0 fL Above high normal 04/09/2024 80 - 100 HHCCT MCH RBC Qn Auto 32.8 pg Above high normal 04/09/2024 27 - 31 HHCCT Eosinophil/leuk NFr Bld Auto 10.4 % Normal 04/09/2024 HHCCT Platelet num Bld Auto 239.0 Thou/uL Normal 04/09/2024 150 - 450 HHCCT Lymphocytes num Bld Auto 1.33 Thou/uL Below low normal 04/09/2024 1.5 - 4.5 HHCCT Monocytes/leuk NFr Bld Auto 7.5 % Normal 04/09/2024 HHCCT Imm Granulocytes num Bld Auto 0.12 Thou/uL Above high normal 04/09/2024 0 - 0.1 HHCCT MCHC RBC Auto-mCnc 31.9 g/dL Normal 04/09/2024 30 - 36 HHCCT Lymphocytes/leuk NFr Bld Auto 16.2 % Normal 04/09/2024 HHCCT Hct VFr Bld Auto 33.9 % Below low normal 04/09/2024 39 - 54 HHCCT aPTT PPP 30.0 seconds Normal 04/09/2024 25 - 36 HHCCT Anticoagulant IV HEPARIN, UNFRACTIONATED Normal 04/09/2024 HHCCT LMWH PPP Doorperson Or Luggage Porter-aCnc 0.25 IU/mL Normal 04/09/2024 HHCCT Anticoagulant APIXABAN (ELIQUIS) Normal 04/09/2024 HHCCT INR PPP 1.1 Normal 04/09/2024 HHCCT Prothrombin time 13.0 seconds Normal 04/09/2024 10 - 13.5 HHCCT Anticoagulant IV HEPARIN, UNFRACTIONATED Normal 04/09/2024 HHCCT Magnesium SerPl-mCnc 1.9 mg/dL Normal 04/09/2024 1.6 - 2.7 HHCCT CO2 SerPl-sCnc 27.0 mmol/L Normal 04/09/2024 22 - 33 HH CCT Calcium SerPl-mCnc 9.1 mg/dL Normal 04/09/2024 8.7 - 10.5 HHCCT Potassium SerPl-sCnc 4.3 mmol/L Normal 04/09/2024 3.4 - 5.3 HHCCT BUN SerPl-mCnc 10.0 mg/dL Normal 04/09/2024 8 - [address] GFR/BSA.pred SerPlBld [id number] 89.0 Normal 04/09/2024 59 - HHCCT Anion Gap Bld-sCnc 10.0 Normal 04/09/2024 7 - 17 HHCCT Chloride SerPl-sCnc 100.0 mmol/L Normal 04/09/2024 98 - 1 07 HHCCT Glucose SerPl-mCnc 102.0 mg/dL Above high normal 04/09/2024 65 - 99 HHCCT BUN/Creat SerPl 11.0 Ratio Normal 04/09/2024 10 - 25 HH CCT Creat SerPl-mCnc 0.9 mg/dL Normal 04/09/2024 0.5 - 1.3 HH CCT Sodium SerPl-sCnc 137.0 mmol/L Normal 04/09/2024 136 - 14 5 HHCCT Monocytes num Bld Auto 0.74 Thou/uL Normal 04/09/2024 0.2 - 1.5 HHCCT Monocytes/leuk NFr Bld Auto 7.6 % Normal 04/09/2024 HHCCT Neutrophils num Bld Auto 6.43 Thou/uL Normal 04/09/2024 2 - 7.5 HHCCT MCH RBC Qn Auto 32.7 pg Above high normal 04/09/2024 27 - 31 HHCCT Imm Granulocytes num Bld Auto 0.11 Thou/uL Above high normal 04/09/2024 0 - 0.1 HHCCT Lymphocytes num Bld Auto 1.46 Thou/uL Below low normal 04/09/2024 1.5 - 4.5 HHCCT MCHC RBC Auto-mCnc 31.5 g/dL Normal 04/09/2024 30 - 36 HHCCT Imm Granulocytes/leuk NFr Bld Auto 1.1 % Normal 04/09/2024 HHCCT Hgb Bld-mCnc 11.2 g/dL Below low normal 04/09/2024 13 - 17.7 HHCCT RBC num Bld Auto 3.42 Mil/uL Below low normal 04/09/2024 4.5 - 6.2 HHCCT PMV Bld Auto 10.8 fL Normal 04/09/2024 7.5 - 12.5 HHCCT Neutrophils/leuk NFr Bld Auto 66.3 % Normal 04/09/2024 HHCCT Lymphocytes/leuk NFr Bld Auto 15.0 % Normal 04/09/2024 HHCCT Basophils num Bld Auto 0.08 Thou/uL Normal 04/09/2024 0 - 0.2 HHCCT Eosinophil num Bld Auto 0.89 Thou/uL Above high normal 04/09/2024 0 - 0.7 HHCCT Hct VFr Bld Auto 35.5 % Below low normal 04/09/2024 39 - 54 HHCCT WBC num Bld Auto 9.7 Thou/uL Normal 04/09/2024 4 - 11 HHCCT Platelet num Bld Auto 263.0 Thou/uL Normal 04/09/2024 150 - 450 HHCCT Eosinophil/leuk NFr Bld Auto 9.2 % Normal 04/09/2024 HHCCT MCV RBC Auto 104.0 fL Above high normal 04/09/2024 80 - 100 HHCCT Basophils/leuk NFr Bld Auto 0.8 % Normal 04/09/2024 HHCCT RDW RBC Auto-Rto 16.1 % Above high normal 04/09/2024 11.5 - 14.5 HHCCT History of Medication Use Medication Directions Dispensed Refills Start Date End Date Stat diltiazem (CARDIZEM CD) 240 MG 24 hr capsule Take 1 capsule (240 mg total) by mouth daily. 05/18/2024 06/18/2024 active polyethylene glycol (miraLAx) 17 g packet Take 1 packet (17 g total) by mouth daily. 05/18/2024 06/18/2024 active docusate sodium (COLACE) 100 MG capsule Take 1 capsule (100 mg total) by mouth 2 (two) times a day. 05/17/2024 06/17/2024 active predniSONE (DELTASONE) 10 MG tablet Take 1 tablet (10 mg total) by mouth every morning with breakfast. With food. Do not start before May 03, 2024. 05/03/2024 05/24/2024 active predniSONE (DELTASONE) 20 MG tablet Take 1 tablet (20 mg total) by mouth daily. With food. Do not start before April 30, 2024. 04/30/2024 05/04/2024 active predniSONE (DELTASONE) 10 MG tablet Take 3 tablets (30 mg total) by mouth daily. With food. Do not start before April 27, 2024. 04/27/2024 05/01/2024 active predniSONE (DELTASONE) 20 MG tablet Take 2 tablets (40 mg total) by mouth daily. With food. Do not start before April 24, 2024. 04/24/2024 active predniSONE (DELTASONE) 50 MG tablet Take 1 tablet (50 mg total) by mouth daily. With food. Do not start before April 21, 2024. 04/21/2024 active predniSONE (DELTASONE) 20 MG tablet Take 3 tablets (60 mg total) by mouth every morning with breakfast. With food. Do not start before April 20, 2024. 04/20/2024 active acetaminophen (TYLENOL) 325 MG tablet Take 3 tablets (975 mg total) by mouth every 8 (eight) hours around the clock. 04/19/2024 05/20/2024 active oxyCODONE (ROXICODONE) 10 mg immediate release tablet Take 1 tablet (10 mg total) by mouth every 4 (four) hours as needed for severe pain or moderate pain. Max Daily Amount: 60 mg 04/19/2024 active Lipitor 10 MG tablet Take 1 tablet (10 mg total) by mouth. 04/03/2024 active buPROPion (WELLBUTRIN SR) 150 MG 12 hr tablet Take 1 tablet (150 mg total) by mouth. 03/07/2024 active diltiazem (CARDIZEM CD) 120 MG 24 hr capsule 03/05/2024 active albuterol (PROAIR RESPICLICK) 108 (90 Base) MCG/ACT inhaler Inhale 2 puffs every 4 (four) hours as needed for wheezing or shortness of breath. active apixaban (ELIQUIS) 5 MG tablet Take 1 tablet (5 mg total) by mouth 2 (two) times a day. active cholecalciferol (CHOLECALCIFEROL) 25 MCG (1000 UT) tablet Take 1 tablet (1,000 Units total) by mouth daily. active fentaNYL (DURAGESIC) 100 mcg/hr patch Place 1 patch on the skin every third day (72 hrs). Max Daily Amount: 1 patch active fluticasone-umeclidin ium-vilanterol (Trelegy Ellipta) 100-62.5-25 mcg/act inhaler Inhale 1 puff daily. active ipratropium-albuterol (DUONEB) 0.5-2.5 mg/3 mL nebulizer solution Take 3 mL by nebulization 4 times daily (every 6 hours) as needed for wheezing or shortness of breath. active latanoprostene (VYZULTA) 0.024 % ophthalmic solution Administer 1 drop to both eyes nightly. active metoPROLOL TARTRATE (LOPRESSOR) 50 MG tablet Take 1 tablet (50 mg total) by mouth 2 (two) times a day. active multivitamin Tab tablet Take 1 tablet by mouth daily. active pregabalin (LYRICA) 75 MG capsule Take 1 capsule (75 mg total) by mouth daily. active pyridoxine (VITAMIN B-6) 50 mg tablet Take 1 tablet (50 mg total) by mouth daily. active senna (SENOKOT) 8.6 MG Tab tablet Take 2 tablets by mouth daily. active Problems Problem Status Onset Date Problem Type Date of Resoluti on Source Bacteremia due to Klebsiella pneumoniae active 2024-05-08 [facility] Spontaneous pneumothorax active 2024-04-09 [facility] Chronic respiratory failure with hypoxia active 2024-05-17 [facility] Recurrent pneumothorax active 2024-05-07 Problem[facility] Chronic obstructive pulmonary disease, unspecified active 2024-04-03 Problem[facility] Peripheral neuropathy active 2024-05-17 [facility] MDS (myelodysplastic syndrome) active 2024-05-17 ProblemAct [facility] Acute cystitis without hematuria active 2024-05-08 ProblemAct [facility] Paroxysmal atrial fibrillation active 2024-04-03 ProblemAct [facility] Acute and chronic respiratory failure with hypoxia active 2024-04-03 ProblemAct [facility] Encounters Encounter Type Encounter Reason Primary Diagnosis Location Date Inpatient Other pneumothorax Other pneumothorax [facility] 05/07/2024 Inpatient Shortness of breath Shortness of breath [facility] 04/08/2024 [email or web address] 04/08/2024 Care Team Organization Name Specialty Phone Email Start Date End [facility] [employer] CHRIS FLETCHER Primary Care 05/12/2024 [employer] JEANETTE POLK Primary Care 04/14/2024 [employer] 04/09/2024 11/10/2024 [employer] 04/09/2024
--- OUTSIDE RECORDS SUMMARY | 2025-05-30 15:51 | XMS_ITS | Encounter Summary ---
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 Role Phone Nikita Rivera MD Primary Care Provider [phone] Encounter Details Date Type Department Care Team (Late st Contact Info) Description 06/28/2024 Scanned Document [facility] [place] [address] [facility] [address] [place] [address] Quyen Barajas PA-C [address] [facility] [address] [place], [place] [id number] Social History Tobacco Use Types Packs/Day Years Used Date Smoking Tobacco: Former Cigarettes Smokeless Tobacco: Former [facility] Utilities Answer Date Recorded In the [...] place to sleep or slept in a care home (including now)? 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
--- OUTSIDE RECORDS SUMMARY | 2025-05-30 15:51 | XMS_ITS | Clinical Summary ---
Author Organization [facility] Address [address] [place] [id number] Care Team Providers Care Detective Supervisor Name Role Phone Nikita Rivera MD Primary Care Provider [phone] Allergies No known active allergies Medications albuterol (PROAIR RESPICLICK) 108 (90 Base) MCG/ACT inhaler Inhale 2 puffs every 4 (four) hours as needed for wheezing or shortness of breath. Active apixaban (ELIQUIS) 5 MG tablet Take 1 tablet (5 mg total) by mouth 2 (two) times a day. Active cholecalciferol (CHOLECALCIFEROL ) 25 MCG (1000 UT) tablet Take 1 tablet (1,000 Units total) by mouth daily. Active fentaNYL (DURAGESIC) 100 mcg/hr patch Place 1 patch on the skin every third day (72 hrs). Max Daily Amount: 1 patch Active fluticasone-umec lidinium-vilante rol (Trelegy Ellipta) 100-62.5-25 mcg/act inhaler Inhale 1 puff daily. Active ipratropium-albu terol (DUONEB) 0.5-2.5 mg/3 mL nebulizer solution Take [...] 1 tablet (150 mg total) by mouth. 4 Active Lipitor 10 MG tablet Take 1 tablet (10 mg total) by mouth. 4 Active oxyCODONE (ROXICODONE) 10 mg immediate release tabletIndication s:Chronic Pain Take 1 tablet (10 mg total) by mouth every 4 (four) hours as needed for severe pain or moderate pain. Max Daily Amount: 60 mg 4 Active predniSONE (DELTASONE) 10 MG tabletIndication s:Chronic obstructive pulmonary disease, unspecified COPD type (HCC) Take 1 tablet (10 mg total) by mouth every morning with breakfast. With food. Do not start before May 03, 2024. 4 Active acetaminophen (TYLENOL) 325 MG tabletIndication s:Spontaneous pneumothorax Take 3 tablets (975 mg total) by mouth every 8 (eight) hours around the clock. 4 Active docusate sodium (COLACE) 100 MG capsuleIndicatio ns:Spontaneous pneumothorax,Acu te and chronic respiratory failure with hypoxia (HCC) Take 1 capsule (100 mg total) by mouth 2 (two) times a day. 4 Active polyethylene glycol (miraLAx) 17 g packetIndication s:Spontaneous pneumothorax,Acu te and chronic respiratory failure with hypoxia (HCC) Take 1 packet (17 g total) by mouth daily. 4 Active diltiazem (CARDIZEM CD) 240 MG 24 hr capsuleIndicatio ns:Paroxysmal atrial fibrillation (HCC) Take 1 capsule (240 mg total) by mouth daily. 4 Active Active Problems Problem Noted Date Diagnosed Date Chronic respiratory failure with hypoxia 024 MDS (myelodysplastic syndrome) 05/17/2024 Peripheral neuropathy 05/17/2024 Bacteremia due to Klebsiella pneumoniae 05/08/20 Acute cystitis without hematuria 05/08/2024 Recurrent pneumothorax 05/07/2024 Spontaneous pneumothorax 04/09/2024 Acute and chronic respiratory failure with hypox ia 04/03/2024 Chronic obstructive pulmonary disease, unspecifi ed 04/03/2024 Paroxysmal atrial fibrillation 04/03/2024 Social History Tobacco Use Types Packs/Day Years Used Date Smoking Tobacco: Former Cigarettes Smokeless Tobacco: Former Tobacco Cessation:Counseling Given: Not Answered [facility] Utilities Answer Date Recorded In the past [...] place to sleep or slept in a assisted (including now)? No 05/11/2024 Sex and Gender [...] 54 05/17/2024 11:41 AM EDT Temperature 36.5 C (97.7 F) 05/17/2024 11:41 AM EDT Respiratory Rate 18 05/17/2024 11:41 AM EDT Oxygen Saturation 95% 05/17/2024 11:41 AM EDT Inhaled Oxygen Concentration - - Weight 87.5 kg (193 lb) 05/07/2024 11:00 PM EDT Height 182.9 cm (6') 05/07/2024 11:00 PM EDT Body Mass Index 26.18 05/07/2024 11:00 PM EDT Plan of Treatment Health Maintenance Due Date Last Done Comments Advance Care Planning 1945 Hepatitis C Virus Screening 1945 COVID-19 Vaccine (#1) 1952 DTaP/Tdap/Td Vaccines (1 - Tdap) 1966 Pneumococcal Vaccines 50+ (1 of 2 - PCV) 1966 Zoster (Shingles) Vaccine (1 of 2) 1966 RSV Vaccine 60 years and old er and Patients (1 - 1-dose 75+ series) 2022 Influenza Vaccine 03/25/2025 06/14/2024 Hepatitis B Vaccines Aged Out No long er eligible based on patient's age to complete this topic Insurance MEDICARE PART A & B [facility] Advance Directives * Full Code (Latest Code Status on File) Date Activated Date Inactivated Comments 05/07/2024 11:52 PM * Full Code Date Activated Date Inactivated Comments 04/09/2024 2:40 AM 05/07/2024 11:00 PM Question Answer Comments Decision Thoroughly Discussed with: Patient Care Teams Detective Supervisor Relationship Specialty Start Date End Date Nikita Rivera MD [address] [place] [address] [place] [address] PCP - General Internal Medicine 05/11/24
== END 2025-05-30 13:48 | disposition home or self-care (01) ==
LOC: HO.HOS 13:28
PROVIDERS: PCP Family Medicine; Visit Provider Orthopaedic Surgery
DX: M75.101 Unspecified rotator cuff tear or rupture of right shoulder, not specified as traumatic (principal); M12.811 Other specific arthropathies, not elsewhere classified, right shoulder
CPT/HCPCS: 20610; 99213

== ENCOUNTER → 2025-05-30 13:27 | Outpatient (BNVA) | payer MEDICARE, SELFPAY | PROVIDERS: PCP Family Medicine; Visit Provider Orthopaedic Surgery | DX: M75.101 Unspecified rotator cuff tear or rupture of right shoulder, not specified as traumatic (principal); M12.811 Other specific arthropathies, not elsewhere classified, right shoulder | CPT/HCPCS: 20610; 99212; J0665; J1100; J2003 ==

== ENCOUNTER 2025-06-12 10:28 | Inpatient (IN) | payer MEDICARE, OTHER, SELFPAY ==
--- OUTSIDE RECORDS SUMMARY | 2024-01-13 10:32 | XMS_ITS ---
Author Organization Salbador Ybarra III, MD Address [address] [place] [address] [place] [address] Care Team Providers Care Human Service Worker Name Role Phone Nikita Rivera MD Primary Care Provider Unavailab Dr. Salbador Fuentes III Unavailable [phone] REASON FOR VISIT Rx Refill Medications Medication SIG (Take, Route, Fr equency, Duration) Notes Start Date End Date Status Vitamin B-6 50 MG TAKE ONE TABLET BY M OUTH EVERY DAY Orally Once a day for 30 days 01/07/2025 Active Social History Sex Assigned At : Social History Observation Description Sex Assigned At Male Encounters Encounter Location Date Provider Diagnosis Salbador Ybarra III, MD [address] [place] [address] [place] [address] 01/13/2024 Salbador Ybarra Myelodysplastic syndrome, unspecified D46.9 Assessments Encounter Date Diagnosis (ICD Code) Assessment Notes Treat ment Notes Treatment Clinical Notes 01/13/2024 Myelodysplastic syndrome, unspecified (ICD-10 - D46.9) His mean cell volume remains stable at 109. No change in his blood work has been noted. Current therapy was continued. Plan Of Treatment Medication Medication Name Sig Start Date Stop Date Notes Vitamin B-6 50 MG TAKE ONE TABLET BY M OUTH EVERY DAY Orally Once a day for 30 days 01/07/2025 Progress Notes * Jordy MCCLELLANDDOB:1944 (78 yo M)Acc No.[id number]:01/13/2024 Patient: Jordy Isabel :1945 A ge:78 Y S ex:Male Address:[address] [place] [id number] * Refills Refill Vitamin B-6 Tablet, 50 MG, Orally, 30, TAKE ONE TABLET BY MOUTH EVERY DAY, Once a day, 30 days, Refills=11 * true * Date: Generated for Balaji cano/Josh/eTransmitting on: 1 11:33 AM EDT
--- OUTSIDE RECORDS SUMMARY | 2024-01-14 13:30 | XMS_ITS ---
Author Organization Salbador Ybarra III, MD Address [address] [place] [address] Care Team Providers Care Backside Grinder Name Role Phone Nikita Rivera MD Primary [...] Date Provider Diagnosis Salbador Ybarra III, MD [address] [place] [address] [address] [place], [place] [address] 01/14/2024 Salbador Ybarra Myelodysplastic syndrome, unspecified D46.9 [...] Orally Once a day Progress Notes * Jordy MCCLELLANDDOB:1944 (80 yo M)Acc No.[id number]:01/14/2024 Progress Notes Patient: Jordy CROSS Provider: Aubrey Ybarra MD :1945 A ge:78 Y S ex:Male Date:01/14/2024 Address:[address] [place], [place] [id number] Pcp:Nikita Rivera MD Subjective: * Chief Complaints: [...] x-cigarette smoker Edson sotelo was born in [place], [place]. 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 He has 2 children and [...] PSYCH: a lert, oriented. Assessment: * Assessment: 1. Freddy yelodysplastic syndrome, unspecified - D46.9 N [...] 0 01/14/2024 Generated for Balaji ng/Josh/Geovannasmitting on: 11:33 AM EDT History and Physical Notes * HPI [...]
--- OUTSIDE RECORDS SUMMARY | 2024-02-06 05:15 | XMS_ITS ---
Author Organization Salbador Ybarra III, MD Address [address] [place] [place] [address] Care Team Providers Care Chimney Builder Name Role Phone Nikita Rivera MD Primary [...] Problem Status W/U Status Risk Notes Problem [id number] Atrial fibrillation, unspecified type (I48.91) Active confirmed Vital Signs Temperature 98.3 degrees Fahrenheit 02/06/20 24 Blood pressure systolic 121 mm Hg 02/06/20 24 Blood pressure diastolic 80 mm Hg 024 Heart Rate 72 /min 02/06/2024 Height 72 in 02/06/2024 Weight 211 lbs 02/06/2024 BMI 28.61 kg/m2 02/06/2024 Encounters Encounter Location Date Provider Diagnosis Salbador Ybarra III, MD [address] [place] [address] [place] [address] 02/06/2024 Salbador Ybarra Myelodysplastic syndrome, unspecified D46.9 [...] Notes * Jordy MCCLELLANDDOB:1944 (78 yo M)Acc No.[id number]:02/06/2024 Progress Notes Patient: Heber saul Jordy Provider: Aubrey Ybarra MD :1945 A ge:78 Y S ex:Male Date:02/06/2024 Address:[address] [place] [id number] Pcp:Nikita Rivera MD Subjective: * Chief Complaints: * M yelodysplastic syndromeCOPDOsteoarthritisChronic kidney diseaseAtrial fibrillationPeripheral neuropathy * HPI: C OVID-19 Screening: He returns for surveillance and management of myelodysplastic syndrome. He was in [facility] in December 2023 for shortness of breath and dyspnea. He was found to be in atrial fibrillation and treated medically. He sees his stroboscope operator in February 2024. He has lost 9 [...] x-cigarette smoker H e was born in [place], [place]. 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 He has 2 children and [...] MD Date: 0 02/06/2024 Generated for Balaji ng/Josh/eTransmitting on: 1 11:33 AM EDT History and Physical Notes * HPI (History of Present Illness) Category Sub-Category Detail Notes COVID-19 Screening Questions Have you had any new onset fever, chills, cough, congestion, sore throat, shortness of breath, muscle aches?: No Have you been exposed to the virus withi n the last 10 days?: No Have you travelled internationally in [facility] last 10 days?: No Have you been [...]
--- OUTSIDE RECORDS SUMMARY | 2024-04-08 07:43 | XMS_ITS ---
Author Organization Salbador Ybarra III, MD Address [address] [place] [address] [place] [address] Care Team Providers Care Telegraph Office Route Aide Name Role Phone Nikita Rivera MD Primary Care Provider Unavailab Dr. Salbador Fuentes III Unavailable [phone] REASON FOR VISIT Message Social History Sex Assigned At : Social History Observation Description Sex Assigned At Male Encounters Encounter Location Date Provider Diagnosis Salbador Ybarra III, MD [address] [place] [address] [place] [address] 04/08/2024 Salbador Ybarra Plan Of Treatment No Information Progress Notes * Jordy MCCLELLANDDOB:1944 (78 yo M)Acc No.[id number]:04/08/2024 Patient: Heber Jordy saul :1945 A ge:78 Y S ex:Male Address:[address] [place] [address] * true * Date: Generated for Printi ng/Faxing/eTransmitting on: 11:34 AM EDT
--- OUTSIDE RECORDS SUMMARY | 2024-04-09 13:15 | XMS_ITS ---
Author Organization Salbador Ybarra III, MD Address [address] [place] [address] Care Team Providers Care Tourist Escort Name Role Phone Nikita Rivera MD Primary [...] Date Provider Diagnosis Salbador Ybarra III, MD [address] [place] [address] [address] TRAN KELLY, [place] [phone] 04/09/2024 Salbador Ybarra Myelodysplastic syndrome, unspecified D46.9 [...] DAY Oral Progress Notes * Jordy MCCLELLANDDOB:1944 (80 yo M)Acc No.[id number]:04/09/2024 Progress Notes Patient: Heber ALVAREZSISI Jordy Provider: Aubrey Ybarra MD :1945 A ge:78 Y S ex:Male Date:04/09/2024 Address:[address] [place] [address] [id number] Pcp:Nikita Rivera MD Subjective: * Chief Complaints: [...] x-cigarette smoker Edson sotelo was born in [place], [place]. 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 He has 2 children and [...] 04/09/2024 Generated for Rejii ng/Josh/eTransmitting on: 1 11:33 AM EDT History and Physical Notes * HPI (History of Present Illness) Category Sub-Category Detail Notes COVID-19 Screening Questions Have you had any new onset fever, chills, cough, congestion, sore throat, shortness of breath, muscle aches?: No Have you been exposed to the virus withi n the last 10 days?: No Have you travelled internationally in [facility] last 10 days?: No Have you been [...]
--- OUTSIDE RECORDS SUMMARY | 2024-08-02 07:15 | XMS_ITS ---
Author Organization Salbador Ybarra III, MD Address [address] [place] [address] [place] [address] Care Team Providers Care Cream Hauler Name Role Phone Nikita Rivera MD Primary [...] Date Provider Diagnosis Salbador Ybarra III, MD [address] [place] [address] [place] [address] 08/02/2024 Salbador Ybarra Myelodysplastic syndrome, unspecified D46.9 [...] Notes * Jordy MCCLELLANDDOB:1944 (79 yo M)Acc No.[id number]:08/02/2024 Patient: Jordy CROSS :1945 A ge:79 Y S ex:Male Address:[address] [place] [phone] * Refills Refill Vitamin B-6 Tablet, 50 MG, Orally, 90, TAKE ONE TABLET BY MOUTH EVERY DAY, once a day, 90 days, Refills=9 * true * Date: Generated for Balaji cano/Josh/Geovannasmitting on: 11:34 AM EDT
[2025-06-12] VITALS (14 sets, daily range): BP systolic 94–150; BP diastolic 49–100; PULSE 86–134; RESP 13–20; TEMP 36.6–37.9; O2SAT 90–96; BMI 29.4
--- NOTE | ~2025-06-12 | XR_ITS ---
EXAMINATION: XR CHEST CLINICAL INFORMATION: dyspnea COMPARISON: Several prior studies, most recently 06/15/2025. TECHNIQUE: AP view of the chest was obtained. FINDINGS: Borderline cardiac enlargement. Mediastinal and hilar contours appear normal. Aortic mural calcification. Elevated right hemidiaphragm, similar to prior studies. There is underlying COPD with increased fine interstitial markings bilaterally. Linear atelectasis or scarring in the right base, unchanged. Patchy opacity in the medial right base with peribronchial thickening present. No focal osseous or soft tissue abnormality. Degenerative changes of the shoulder joints and spine. XR/XR chest 1V IMPRESSION: 1. COPD with stable prominence of the interstitium. 2. Patchy opacity in the medial right lung base, with peribronchial thickening evident. Findings could represent bronchopneumonia in the appropriate clinical setting. Electronically signed by: Larry Genao MD 06/17/2025 11:02 AM EDT
--- NOTE | ~2025-06-12 | CT_ITS ---
CLINICAL HISTORY: dyspnea CT angiography chest with contrast. 3D Postprocessing. Comparison: CT/SC/SR - CT CHEST W IV CON - 11/29/24 14:56 EDT Findings: The heart is normal size. RV/LV ratio is normal. The thoracic aorta is normal caliber. No acute pulmonary embolus. The visualized thyroid and mediastinum are unremarkable. There is interstitial scarring within the bilateral lungs. Ground-glass opacities previously seen within the bilateral upper lobes, lingula and left lower lobe have improved significantly since the prior exam. There are ground-glass opacities within the right lower lobe and there is peribronchial thickening within the right lower lobe which appear to have increased. The visualized upper abdomen is unremarkable. The bones are intact. IMPRESSION: 1. No pulmonary artery embolism. 2. Peribronchial thickening within the right lower lobe associated with an area of infiltrate within the right lower lobe with worsening since the prior study. 3. Interval resolution of multiple additional previously seen areas of interstitial infiltrate. Significant interstitial scarring noted. This document has been electronically signed by: Raven Feliciano MD on 06/12/2025 14:53:14
--- NOTE | ~2025-06-12 | XR_ITS ---
EXAMINATION: XR CHEST CLINICAL INFORMATION: pna COMPARISON: CT chest 06/12/2025. Chest radiograph 06/12/2025. TECHNIQUE: AP view of the chest was obtained. FINDINGS: Borderline cardiac enlargement. Mediastinal and hilar contours appear normal. Aortic mural calcification. Mildly elevated right hemidiaphragm, unchanged. Lungs demonstrate similar persistent quite subtle patchy airspace opacities in both lungs. Stable right base atelectasis versus pneumonia. No focal osseous or soft tissue abnormality. Degenerative changes of the shoulder joints and spine. XR/XR chest 1V IMPRESSION: 1. No significant interval change in the appearance of the chest when compared with radiograph of 06/02/2025. Electronically signed by: Larry Genao MD 06/15/2025 03:22 PM EDT
--- NOTE | ~2025-06-12 | XR_ITS ---
CLINICAL HISTORY: sob, cough 1 view chest x-ray Comparison: CR/SR - XR CHEST 1 VIEW - 12/03/24 08:02 EDT Findings: Mild elevation of the right hemidiaphragm. Small focus of mild airspace opacity within the right lower lung. Possible small right pleural effusion. Normal size heart. No acute fracture. IMPRESSION: Mild atelectasis and/or infiltrate at the base of the right lung. Possible small right pleural effusion. This document has been electronically signed by: Raven Feliciano MD on 06/12/2025 13:15:30
--- NOTE | 2025-06-12 10:35 | ECG_ITS ---
Test Reason : SOB Blood Pressure : */* mmHG Vent. Rate : 123 BPM Atrial Rate : 123 BPM P-R Int : 192 ms QRS Dur : 82 ms QT Int : 292 ms P-R-T Axes : 78 -11 40 degrees QTcB Int : 418 ms Sinus tachycardia with Premature supraventricular complexes More frequent Premature atrial complexes When compared with ECG of 30-Nov-2024 00:22, No significant change was found Referred By: Generic ED Physician Electronically Signed By: MELLISA RICCI MD
--- NOTE | 2025-06-12 10:56 | ED.GENADULT ---
HPI - General Adult General Chief complaint: Dyspnea Stated complaint: SICK X1W,SOB 83% HOME O2,WEAK PER EMS Time Seen by Provider: 06/12/25 10:41 Source: patient and EMS Mode of arrival: EMS Limitations: no limitations History of Present Illness ED Provider: HPI narrative: 80-year-old male with a history of COPD, on 2-3 L of oxygen at home, states has not been feeling well for the past 1 week with flu-like symptoms, cough, no sick contacts reported, he states he is a hospice patient and hospice helps some to manage his medications. He reports to be full code. Also history of pneumothorax. Related Data Home Medications ?Medication ?Instructions ?Recorded ?Confirmed atorvastatin 10 mg tablet 10 mg PO DAILY 06/19/20 11/30/24 cholecalciferol (vitamin D3) 25 25 mcg PO DAILY 10/17/23 11/30/24 mcg (1,000 unit) tablet multivitamin 1 tab PO DAILY 10/17/23 11/30/24 latanoprostene bunod 0.024 % eye 1 drp ophthalmic (eye) BEDTIME 01/07/24 11/30/24 drops (Vyzulta) pregabalin 75 mg capsule 150 mg PO DAILY 01/07/24 11/30/24 pyridoxine (vitamin B6) 50 mg 50 mg PO DAILY 01/07/24 11/30/24 capsule (Vitamin B-6) prednisone 10 mg tablet 10 mg PO DAILY 02/28/24 11/30/24 bupropion HCl 150 mg tablet,12 hr 150 mg PO BID 11/30/24 11/30/24 sustained-release tamsulosin 0.4 mg capsule 0.4 mg PO DAILY 11/30/24 11/30/24 Previous Rx's ?Medication ?Instructions ?Recorded apixaban 5 mg tablet (Eliquis) 5 mg PO BID #60 tabs 01/13/24 albuterol sulfate 90 mcg/actuation 2 puff inhalation Q4H PRN 08/02/24 aerosol inhaler Shortness Of Breath Or Wheezing #1 ea amoxicillin 875 mg-potassium 1 tab PO Q12H #6 tabs 12/05/24 clavulanate 125 mg tablet fentanyl 100 mcg/hr transdermal 1 patch topical Q3D pain #10 ea 12/05/24 patch lorazepam 0.5 mg tablet 0.25 mg (1/2 x 0.5 mg) PO Q4H PRN 12/05/24 dyspnea #10 tabs metoprolol tartrate 50 mg tablet 25 mg (1/2 x 50 mg) PO BID #60 tabs 12/05/24 oxycodone 10 mg tablet 10 mg PO Q4H PRN pain #20 tabs 12/05/24 prednisone 10 mg tablet 30 mg (3 x 10 mg) PO DAILY 3 days 12/05/24 #9 tabs ipratropium 0.5 mg-albuterol 3 mg 3 ml inhalation QID PRN dyspnea 03/09/25 (2.5 mg base)/3 mL nebulization #180 mL soln fluticasone fur. 100 mcg-umeclid 1 ea PO DAILY #180 ea 04/21/25 62.5 mcg-vilant 25 mcg inhalat.powder (Trelegy Ellipta) Allergies Allergy/AdvReac Type Severity Reaction Status Date / Time No Known Allergies Allergy Mild NONE Verified 06/12/25 10:37 Review of Systems Constitutional: Constitutional: Reports as per [facility] Past Medical History Medical History (Updated 06/12/25 @ 13:51 by René Rodríguez DO) Chronic anemia Atrial fibrillation with rapid ventricular response Chronic back pain HLD (hyperlipidemia) Osteoarthritis BPH (benign prostatic hyperplasia) Skin lesion of back Chronic obstructive pulmonary disease, unspecified Diverticulosis of large intestine without perforation or abscess without bleeding 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 Surgical History History of excision of lesion (~04/17/23) History of repair of rotator cuff History of colon resection (~2001) Family History Family History Mother Hypertension Father Hypertension Social History Social History Household Members: Unknown / Unable to assess Housing: Unknown / Unable to assess Do you presently have visiting nurse or other home services: Yes Alcohol intake: never Comment: pt refusing alarms Patient Tobacco Use Status: Former Tobacco user Tobacco use type: Cigarette Smoked in Last 30 Days: No Use of substances other than those prescribed or required for medical reasons: No Advance Directives: Yes Advance Directives on File: Yes Advance Directives Date on File: 03/29/24 service: No Current occupational status: employed and retired 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 Neck: Supple, no LAD ? ?CV: Irregular ? ?Resp: Minimal expiratory wheezing and rhonchi throughout ? Abd: ?Bowel sounds are present, no tenderness no rebound no rigidity ? ?MSK: FROM, strength 5/5 all extremities ? Skin: Warm, dry, intact, no lower extremity edema ? ?Neuro: ?Alert and oriented x3, moving upper and lower extremities symmetrically, no obvious facial asymmetry noted, cranial nerves 2-12 intact Vital Signs: Vital Signs - 24 hr 06/12/25 10:35 06/12/25 11:36 06/12/25 13:00 Temperature 100.3 F 98.3 F Pulse Rate 130 H 126 H 130 H Respiratory Rate 20 20 20 Blood Pressure 118/61 117/61 94/56 L Pulse Oximetry 91 L 90 L 92 Oxygen Delivery Method Nasal Cannula Nasal Cannula Nasal Cannula Oxygen Flow Rate 3 3 06/12/25 13:06 06/12/25 13:23 06/12/25 13:26 Temperature Pulse Rate 134 H 123 H 98 Respiratory Rate 20 18 Blood Pressure 131/49 L 139/61 Pulse Oximetry Oxygen Delivery Method Oxygen Flow Rate 06/12/25 13:47 Temperature Pulse Rate 100 Respiratory Rate 18 Blood Pressure 121/58 L Pulse Oximetry Oxygen Delivery Method Oxygen Flow Rate BMI result Body Mass Index 29.4 Medications Administered Discontinued Medications Generic Name Dose Route Start Last Admin Trade Name Freq PRN Reason Stop Dose Admin Acetaminophen 975 mg 06/12/25 11:36 06/12/25 11:52 Acetaminophen 325 Mg Tablet PO 06/12/25 11:37 975 mg ONCE ONE Administration Ceftriaxone Sodium 2 gm 06/12/25 11:38 06/12/25 11:51 Ceftriaxone Sodium 2 Gm Vial IVPUSH 06/12/25 11:39 2 gm ONCE ONE Administration Lactated Ringer's 1,000 mls @ 999 mls/hr 06/12/25 11:33 06/12/25 12:59 Lr IV 06/12/25 12:33 Infused .Q1H1M STA Infusion Iohexol 65 ml 06/12/25 13:20 06/12/25 13:20 Iohexol 350 Mg/Ml 100 Ml Infus..Btl IV 06/12/25 13:21 65 ml ONCE ONE Administration Methylprednisolone Sodium Succinate 60 mg 06/12/25 13:16 06/12/25 13:21 Methylprednisolone Sod Succ 125 Mg/2 Ml Vial IVPUSH 06/12/25 13:17 60 mg ONCE ONE Administration Metoprolol Tartrate 2.5 mg 06/12/25 13:15 06/12/25 13:22 Metoprolol Tartrate 5 Mg/5 Ml Vial IVPUSH 06/12/25 13:16 2.5 mg ONCE ONE Administration Protocol Procedures Ultrasound ED POC Ultrasound: EMERGENCY ULTRASOUND REPORT?Point of Care Cardiac (Echo-Focus), images I locally stored Emergent Cardiac for Indication: Views Used: Parasternal long, parasternal short, 4 chamber, subxiphoid, IVC Pericardial Effusion/Tamponade Findings: No pericardial effusion or trace Global LV Fxn: Preserved IVC Dilation and Resp Variation: IVC collapse more than 50% Impression; no RV strain, IVC collapsed consistent with hypovolemia, no B-lines or pneumothorax noted Medical Decision Making Medical Decision Making [facility] Narrative: 11:35 AM 06/12/2025 (Dr. René Rodríguez): Multiple critical care considerations in this patient he does have history of COPD, AFib, noted to have temp of 100.3 rectally, presenting with flu-like symptoms, was tachycardic likely an atrial flutter with rapid rate, bedside ultrasound with IVC is collapsed consistent with hypovolemia, will start with IV fluids, blood cultures, lactic acid, respiratory is potential source of infection so antibiotics has been ordered as well, has not had dysuria, no rashes, and abdominal exam is benign Differential Diagnosis Differential Diagnoses: The differential diagnosis associated with the presentation includes (CHF, COPD exacerbation, pneumonia, pneumothorax, ACS, PE,) Admission/Observation Consideration of admission/observation: Escalation of care including admission/observation considered Consult Healthcare Provider Management of the patient was discussed with: Hospitalist Lab Data [facility] Lab Attestation statement: I reviewed the patient's lab results. 06/12/25 10:52 06/12/25 10:52 Labs: Lab Results 06/12/25 06/12/25 06/12/25 Range/Units 10:52 10:54 11:04 WBC 13.4 H (4.8-10.8) X10*3/uL RBC 3.22 L D (4.60-5.80) X10*6/uL Hgb 11.6 L D (14.0-18.0) g/dl Hct 34.7 L D (42.0-52.0) % MCV 107.8 H (80.0-98.0) fL MCH 36.0 H (27.0-33.0) pg MCHC 33.4 (31.0-36.0) g/dl RDW 15.9 (11.0-16.0) % Plt Count 240 D (160-400) X10*3/uL MPV 11.0 (9.4-12.4) fL Immature Gran % (Auto) 1.6 H (0.0-0.4) % Neut % (Auto) 80.0 H (45-73) % Lymph % (Auto) 11.6 L (20-40) % Emery % (Auto) 6.3 (2-11) % Eos % (Auto) 0.4 (0-4) % Baso % (Auto) 0.1 (0-2) % Lymph # (Auto) 1.6 (1.2-4.9) X10*3/uL Emery # (Auto) 0.8 (0.1-1.2) X10*3/uL Eos # (Auto) 0.1 (0.0-0.4) X10*3/uL Baso # (Auto) 0.0 (0.0-0.2) X10*3/uL Abs Immat Gran (auto) 0.21 H (0.00-0.03) X10*3/uL Absolute Neuts (auto) 10.7 H (2.0-8.3) x10*3/uL Absolute Nucleated RBC 0.040 H (0.0-0.012) X10*3/uL Nucleated RBC % (auto) 0.3 H (0.0-0.2) /100WBC VBG pH 7.46 H (7.32-7.43) VBG pCO2 53 mmHg VBG pO2 48 mmHg VBG HCO3 38 H (22-26) mmol/L VBG O2 Saturation 72.0 % VBG Base Excess 12.7 mmol/L Sodium 138 (135-145) mmol/L Potassium 4.1 (3.3-5.1) mmol/L Chloride 96 (96-108) mmol/L Carbon Dioxide 29 (22-29) mmol/L Anion Gap 17 (12-20) BUN 22 H (9-16) mg/dL Creatinine 1.07 (0.5-1.4) mg/dL Estim Creat Clear Calc 69.1 Estimated GFR > 60 Random Glucose 134 H (60-115) mg/dL Lactic Acid 1.9 (0.5-2.0) mmol/L Calcium 8.8 (8.4-10.2) mg/dL Total Bilirubin 1.0 (0.0-1.0) mg/dL AST 24 (5-37) U/L ALT 26 (0-40) U/L Alkaline Phosphatase 73 (39-117) U/L Troponin I High Sens 31.4 D (<3.5-35.0) ng/L NT-Pro-B Natriuret Pep 414.0 H (<300) pg/mL Total Protein 6.9 (6.5-8.0) g/dL Albumin 3.7 (3.5-5.0) g/dL COVID-19 (MARGIE) Negative (Negative) COVID-19 Clin Com See Note Influenza Type A (BIANCA) Negative (Negative) Influenza Type B (BIANCA) Negative (Negative) Influenza A & B Note See Note ABG Data Attestation ABG: I personally reviewed and interpreted this ABG as follows: (No significant CO2 retention) Independent Interpretation I performed an independent interpretation of an: EKG (123 beats per minute sinus tachycardia) and Plain X-Ray (Similar to prior, no pneumothorax, no obvious consolidations) Critical Care Time Critical Care Time Critical Care Time: Yes Total Critical Care Time: 35 Attestation: Time is exclusive of separately billable procedures. Time includes: direct patient care, patient reassessment, coordination of patient care, interpretation of data (laboratory data, pulse oximetry, arterial blood gases and chest xrays), review of patient's medical records, medical consultation and documentation of patient care. Procedures excluded from critical care time: central intravenous line placement and electrocardiography. Discharge Plan Discharge Clinical Impression: Community acquired pneumonia, COPD (chronic obstructive pulmonary disease) Prescriptions: No Action albuterol sulfate 90 mcg/actuation HFA aerosol inhaler 2 puff INHALATION Q4H PRN (Reason: Shortness Of Breath Or Wheezing) Qty: 1 6RF ipratropium-albuterol 0.5 mg-3 mg(2.5 mg base)/3 mL solution for nebulization 3 ml inhalation QID PRN (Reason: dyspnea) Qty: 180 6RF Trelegy Ellipta 100-62.5-25 mcg blister with device 1 ea PO DAILY Qty: 180 1RF multivitamin Tablet 1 tab PO DAILY cholecalciferol (vitamin D3) 25 mcg (1,000 unit) Tablet 25 mcg PO DAILY prednisone 10 mg tablet 10 mg PO DAILY Rx Instructions: see taper instructions pregabalin 75 mg capsule 150 mg PO DAILY Vyzulta 0.024 % drops 1 drp ophthalmic (eye) BEDTIME Rx Instructions: both eyes Vitamin B-6 50 mg Capsule 50 mg PO DAILY Eliquis 5 mg Tablet 5 mg PO BID Qty: 60 0RF bupropion HCl 150 mg tablet sustained-release 12 hr 150 mg PO BID tamsulosin 0.4 mg capsule 0.4 mg PO DAILY lorazepam 0.5 mg tablet 0.25 mg PO Q4H PRN (Reason: dyspnea) Qty: 10 0RF amoxicillin-pot clavulanate 875-125 mg Tablet 1 tab PO Q12H Qty: 6 0RF fentanyl 100 mcg/hr patch 72 hour 1 patch topical Q3D Qty: 10 0RF Rx Instructions: APPLY 1 PATCH TO SKIN WITH 12MCG PATCH EVERY 72 HOURS FOR PAIN metoprolol tartrate 50 mg tablet 25 mg PO BID Qty: 60 0RF oxycodone 10 mg tablet 10 mg PO Q4H PRN (Reason: pain) Qty: 20 0RF prednisone 10 mg tablet 30 mg PO DAILY 3 Days Qty: 9 0RF Rx Instructions: see taper instructions atorvastatin 10 mg tablet 10 mg PO DAILY Print Language: Angolan
[2025-06-12 11:08] LABS: MANUAL DIFF FLAG NO
[2025-06-12 11:12] LABS: Hematocrit 34.7 % (42.0-52.0); Hemoglobin 11.6 g/dl (14.0-18.0); Imm Gran Abs Auto 0.21 X10*3/uL (0.00-0.03); Imm Gran Pct Auto 1.6 % (0.0-0.4); Lymphocytes Absolute Auto 1.6 X10*3/uL (1.2-4.9); Mean Corpuscular HGB Conc 33.4 g/dl (31.0-36.0); Mean Corpuscular Hemoglobin 36.0 pg (27.0-33.0); Mean Corpuscular Volume 107.8 fL (80.0-98.0); NRBC Abs Auto 0.040 X10*3/uL (0.0-0.012); NRBC Pct Auto 0.3 /100WBC (0.0-0.2); Platelet Count 240 X10*3/uL (160-400); Red Blood Count 3.22 X10*6/uL (4.60-5.80); White Blood Count 13.4 X10*3/uL (4.8-10.8)
[2025-06-12 11:14] LABS: VBG HCO3 38 mmol/L (22-26); VBG O2 % Saturation 72.0 %
--- OUTSIDE RECORDS SUMMARY | 2025-06-12 11:33 | XMS_ITS | Data Portability ---
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 Name Role Phone [facility] OTHER Assessment Encounter Date Assessment Date [...] Orders Lyrica 75 mg capsule 2023 024 [facility] #[id number], [address] [place], [address], 10:43:35 Trelegy Ellipta 100 mcg-62.5 mcg-25 mcg powder for inhalation 2023 024 [facility]acy #[id number], [address] [place], [address], 10:43:33 prednisone 10 mg tablet 2023 024 [id number] [address] [facility] [place], [address], 10:43:31 Lipitor 10 mg tablet 2023 024 [id number] [address] [facility] [place] [place], [address], 10:43:32 Eliquis 5 mg tablet 2023 [id number] [address] [facility] [place], [address], 10:43:33 metoprolol tartrate 50 mg tablet 2023 024 [id number] [address] [facility] [place], [address], 10:43:32 Cardizem CD 120 mg capsule,ext ended release 2023 024 [id number] [address] [facility] [place], [address], 10:43:32 bupropion HCl SR 150 mg tablet,12 hr sustained-r elease 2023 024 [id number] [address] [facility] [place], [address], 10:43:31 fentanyl 100 mcg/hr transdermal patch [address] [facility], [address] [place] [address], [address], [place], [address], 10:44:30 Patient TargetsNo targets recorded. Patient InstructionsNo instructions recorded. Reason for Referral None Reported. Problems Name Problem SNOMED Code Status Onset Date Resolution Date Notes Provider Name and Address Organization Details Recorded Time Atrial fibrillation 39699206 Active 2023 CONCHA CASTRO [address], [address], [place], [address], [employer] 4 11:35:25 Chronic obstructive pulmonary disease 28599811 Active 2023 CONCHA CASTRO [address], [address], [place], [address], [employer] [facility] 4 11:35:30 Right pneumothorax 346676347 Active 2023 CONCHA CASTRO [address], [address], [place], [address], [employer] [facility] 4 11:35:41 Myelodysplasti c syndrome (clinical) 869044645 Active [address], [place], [address], [employer] [facility] 4 11:36:04 Peripheral nerve disease 545559102 Active 2023 CONCHA CASTRO [address], [address], [place], [address], [employer] [facility] 4 11:36:18 Chronic back pain 643654249 Active 2023 CONCHA CASTRO [address], [address], [place], [address], [employer] [facility] 4 11:36:27 Essential hypertension 75924003 Active 2023 CONCHA CASTRO [address], [address], [place], [address], [employer] [facility] 4 11:36:33 Hyperlipidemia 26274905 Active 2023 CONCHA CASTRO [address], [address], [place], [address], [employer] [facility] 4 11:36:48 Vitamin deficiency 43527423 Active 2023 CONCHA CASTRO [address], [place], [address], [employer] [facility] 4 11:42:07 Constipation 79448094 Active 2023 CONCHA CASTRO [address] [facility], [address], [place], [address], [facility] [employer] [facility] 4 11:43:41 Depressive disorder 80645979 Active 2023 CONCHA CASTRO [address], [address], [place], [address], [facility] [employer] [facility] 4 11:44:50 Anemia 802796467 Active 2023 CONCHA CASTRO [address], [address], [place], [address], [facility] [employer] 4 11:54:09 Dysuria 05633766 Active 2023 Rebecca Nails [address], [address], [place], [address], [facility] [employer] [facility] 4 10:57:52 Benign prostatic hyperplasia 089727672 Active 2023 JACKELYN LO [address], [address], [place], [address], [facility] [employer] 4 12:36:37 Problem Notes None recorded. Medical [...] Smoking Status Former Smoker LEIDY ARIZMENDI, DORIS-C [address] [place] [address] [address], [place], [address], [facility] [employer] 04/20/2024 11:52:35 Do You Have An Advance Directive? Yes Information not available 04/28/2024 What Is Your Code Status? Full Code Information not available 04/28/2024 How Much Tobacco Do You Smoke? 1 PPD [email or web address] Information not available 04/20/2024 How Many Years [...] influenza, unspecified formulation 06/16/2021 completed Trell cancino [facility] 04/28/2024 15:40:18 influenza, unspecified formulation 06/13/2022 completed Trell cancino [facility] 04/28/2024 15:40:23 SARS-COV-2 (COVID-19) vaccine, UNSPECIFIED 10/04/2020 completed Trell Silva null, [facility] 04/28/2024 15:40:34 SARS-COV-2 (COVID-19) vaccine, UNSPECIFIED 11/09/2020 completed Trell Camilo-Veras null, [facility] 04/28/2024 15:40:41 SARS-COV-2 (COVID-19) vaccine, UNSPECIFIED 07/31/2021 completed Trell Camilo-Veras null, [facility] 04/28/2024 15:40:47 SARS-COV-2 (COVID-19) vaccine, UNSPECIFIED 02/05/2022 completed Trell Camilo-Veras null, [facility] 04/28/2024 15:40:55 SARS-COV-2 (COVID-19) vaccine, UNSPECIFIED 10/04/2022 completed Trell Camilo-Veras null, [facility] 04/28/2024 15:41:01 SARS-COV-2 (COVID-19) vaccine, UNSPECIFIED 09/03/2023 completed Trell Camilo-Veras null, [facility] 04/28/2024 15:41:09 zoster, unspecified formulation 07/15/2022 completed [facility] null, [facility] 04/28/2024 15:41:26 zoster, unspecified formulation 12/17/2022 completed Trell Edmundholly-Veras null, [facility] 04/28/2024 15:41:35 Past Encounters Encounter ID Performer Location Encounter Start Date Encounter Closed Date Diagnosis/Indication Diagnosis SNOMED-CT Code Diagnosis ICD10 Code Diagnosis IMO Codes Diagnosis Note [id number] CONCHA CASTRO AT [address] [address] 04/20/2024 10:48:45 04/23/2024 15:35:18 Chronic obstructive pulmonary disease 67223862 J44.9 on 4 L O2 at baselineCT A with ISLD and emphysema- albuterol q4h prn for sob-duoneb q6h prn for sob-treleg y inhaler daily Right pneumothorax 36538 3001 J93.9 recurrent on the right sidesp right side chest tube placement and bedside pleurodesi s on 04/09-fredrick nue to monitor resp status and CP-monitor SpO2-fredrick nue po prednisone taper, w/ decreasing dose of 10 mg every 3 days-f/up with pulm and thoracic surgery as planned Vitamin deficiency 79371 002 E56.9 carrying dx-choleca lciforal daily-MVD dailypyrox ine 50 mg daily Constipation 71216286 K5 9.00 on bowel reg-senna daily-nereyda tor BM Depressive disorder 3548 9007 F32.A -wellbutri n 150 mg w30b-butnd eval prn-monito r mood and affect Atrial fibrillation 4943 6004 I48.91 h/o PAF-eliqui s 5 mg po bid-dilt 120 mg daily-meto prolol 50 mg po bid-monito r HR and bleeding Peripheral nerve disease 205599173 G64 -lyrica 75 mg po daily Hyperlipidemia 64635465 E78.5 carrying dx-lipitor 10 mg po daily-lipi ds as needed Essential hypertension 02742733 I10 see plan for PAF-vitals qshift x 3 days, then daily Myelodyspl astic syndrome (clinical) 156057976 D46.9 carrying dx-fentany l patch 100 mcg/hr = replace x09y-dcspd done 10 mg q4h prn for mod-sev breakthrou gh pain-tylen ol 975 mg po TID scheduled Chronic back pain 614094 002 G89.29 -see above Anemia 156683450 D64.9 04/20 hgb 8.5 hct 26.5lower than baseline, likely in the setting of blood loss with recent chest tube-repea t CBC thurs to trend [id number] Rebecca ALVAREZLEY AT [address] [address] 04/26/2024 10:36:35 04/30/2024 10:10:28 Chronic obstructive pulmonary disease 78357795 J44.9 on 4 L O2 at baselineCT A with ISLD and emphysema- albuterol q4h prn for sob-duoneb q6h prn for sob-treleg y inhaler daily Right pneumothorax 30784 3001 J93.9 recurrent on the right sidesp right side chest tube placement and bedside pleurodesi s on 04/09-fredrick nue to monitor resp status and CP-monitor SpO2-fredrick nue po prednisone taper, w/ decreasing dose of 10 mg every 3 days, end date 05/02/24-f/u p with pulm and thoracic surgery as planned Essential hypertension 47238698 I10 BP at [place] plan for PAFcardiac meds as above-jess ls qshift x 3 days, then daily Anemia 217072163 D64.9 hgb improved on 04/13/24, now 8.8lower than baseline, likely in the setting of blood loss with recent chest tubemonito r cbc weekly Dysuria 19515851 R30.0 see HPIpt reporting change in urine stream with some dysuria in the last 2 dayspt denies cloudy or blood tinged urineVSS, no AMSwill order U/A C&Smonitor [id number] Kenn Malone MD [facility] AT [address] [address] 04/28/2024 12:05:21 04/30/2024 10:12:28 Spontaneous pneumothorax 28150360 J93.83 see HPIrecurre nt spontaneou s right sided pneumothor ax, acute on chronic respirator y failureReq uired chest tube placement since removed with bedside pleurodesi s on 04/09monito r respirator y statuspulm onary f/u in place Asthenia 08642390 R53.1 PT OT eval and treatmonit or fall risk Chronic ob structive pulmonary disease 44163825 J44.1 see HPI now onpredniso ne taper decreased by 10 mg q 3 days down to 10 mgO2 by NC at 2 liters at baseline had increased to 4 liters prior to hospitaliz ationconti nue out patient medsmonito r albuterol utilizatio n Constipation 09247787 K5 9.09 bowel protocolmo nitor for effect Depressive disorder 0018 9007 F33.8 wellbutrin 150 mg bidmonitor for effectpsyc h eval prn Atrial fibrillation 4943 6004 I48.0 eliquis 5 mg bidmetopro lol 50 mg biddiltiaz em 120 mg qdmonitor for rate control Peripheral nerve disease 955797544 G64 carrying dx added to PMHlyrica 75 mg qdmonitor for effect Hyperlipidemia 12813573 E78.2 lipitor 10 mg qdcontinue d Essential hypertension 33736969 I10 metoprolol 50 mg biddiltiaz em 120 mg qdmonitor bp and need to titrate Myelodyspl astic syndrome (clinical) 890898463 D46.Z details not available added to PMHrequest from PCP prncarryin g dxmonitor cbcheme eval prn Chronic back pain 610151 002 G89.29 maintained on fentanyl 100 mcg q 72 hour [id number] RUSSELL RCUZ AT [address] [address] 04/29/2024 08:34:21 05/03/2024 12:09:48 Dysuria 82942480 R30.0 04/29: UA completed on 04/27/24 noted negative, he offers no complaints of dysuria, he tells me he is voiding ok. Right pneumothorax 23600 3001 J93.9 recurrent on the right sidesp right side chest tube placement and bedside pleurodesi s on 04/09-fredrick nue to monitor resp status and CP-monitor SpO2-fredrick nue po prednisone taper, w/ decreasing dose of 10 mg every 3 days, end date 05/02/24-f/u p with pulm and thoracic surgery as planned Chronic ob structive pulmonary disease 79621084 J44.9 on 4 L O2 at baselineCT A with ISLD and emphysema- albuterol q4h prn for sob-duoneb q6h prn for sob-treleg y inhaler daily Essential hypertension 43130330 I10 BP at goalsee plan for PAFcardiac meds as above-jess ls qshift x 3 days, then daily Anemia 264338399 D64.9 hgb improved on 04/13/24, now 8.8lower than baseline, likely in the setting of blood loss with recent chest tubemonito r cbc weekly [id number] Rebecca STOREY AT [address] [address] 05/03/2024 08:14:43 05/05/2024 08:53:07 Dysuria 83956253 R30.0 04/29: UA completed on 04/27/24 noted negative,w ith dysuria over the weekend, frequent voiding impacting sleeppt reporting previous regimen on flomax, will order 0.4 mg qdwill order PSA with labs for tomorrow Right pneumothorax 21735 3001 J93.9 recurrent on the right sidesp right side chest tube placement and bedside pleurodesi s on 04/09-fredrick nue to monitor resp status and CP-monitor AyF2cdonll naif prednisone taper, continue maintenanc e dose 10 mg qd-f/up with pulm and thoracic surgery as planned Chronic ob structive pulmonary disease 05746760 J44.9 on 4 L O2 at baselineCT A with ISLD and emphyseman ow with prednisone maintenanc e dose of 10 mg qd-albuter ol q4h prn for sob-duoneb q6h prn for sob-treleg y inhaler daily Essential hypertension 23326667 [facility] plan for PAFcardiac meds as above-jess ls qshift x 3 days, then daily Anemia 206177848 D64.9 hgb improved on 04/13/24, now 8.8lower than baseline, likely in the setting of blood loss with recent chest tubemonito r cbc weekly Fever 057737929 R50.9 see HPInursing reporting fever 102 in the afternoonp t with recent complex medical Hx, will send to ED for further eval [id number] JACKELYN STOREY AT [address] [address] 05/18/2024 12:06:55 05/19/2024 13:52:04 Chronic obstructive pulmonary disease 36319825 J44.9 on 4 L O2 at baselineCT A with ISLD and emphysema- prednisone 10 mg daily-albu terol q4h prn for sob-duoneb q6h prn for sob-treleg y inhaler daily Right pneumothorax 29505 3001 J93.9 see HPIs/p talc pleurodesi she will need follow up with Dr. Riley in 2 weeks with CXR prior to visitmonit or resp status closely Vitamin deficiency 15043 002 E56.9 carrying dx-choleca lciferol 1000 units daily-MVD dailypyrox ine 50 mg daily Constipation 18048832 K5 9.00 on bowel reg-colace 100 mg BID-mirala x 17 gm dailymonit or bowels Depressive disorder 1378 9007 F32.A -wellbutri n 150 mg e71b-ugbfi eval prn-monito r mood and affect Atrial fibrillation 4943 6004 I48.91 h/o PAF-eliqui s 5 mg po bid-dilt 240 mg daily-meto prolol 50 mg po bid-monito r HR and bleeding Peripheral nerve disease 069024698 G64 -lyrica 75 mg po daily Hyperlipidemia 51834804 E78.5 carrying dx-lipitor 10 mg po daily-lipi ds as needed Essential hypertension 50794330 I10 vitals qshift x 3 days, then daily Myelodyspl astic syndrome (clinical) 630449085 D46.9 carrying dx-fentany l patch 100 mcg/hr = replace k74b-nhyxk done 10 mg q4h prn for mod-sev breakthrou gh pain-tylen ol 975 mg po TID scheduled Chronic back pain 226623 002 G89.29 -see above Anemia 137596547 D64.9 monitor labs [id number] Kenn Malone MD [facility] AT [address] [address] 05/21/2024 12:06:59 05/25/2024 09:50:14 Spontaneous pneumothorax 89907235 J93.83 see HPIrecurre nt spontaneou s right sided pneumothor axunderwe nt pleurodesi s on 04/09 and again during this hospitaliz ation on 05/08monito r respirator y statuspulm onary f/u in place Dr Riley with CXR prior to this appt Asthenia 66943102 R53.1 PT OT eval and treatmonit or fall risk and need for increased support in community Chronic ob structive pulmonary disease 46339772 J44.1 O2 by NC at 2 liters [...] for rate control Myelodyspl astic syndrome (clinical) 679006633 D46.Z carrying dxmonitor cbcheme eval prn Peripheral nerve disease 005011214 G64 lyrica 75 mg qdmonitor for effect Essential hypertension 37946774 I10 metoprolol 50 mg biddiltiaz em 240 mg qdmonitor bp and need to titrate Constipation 08850245 K5 9.09 bowel protocolmo nitor for effect Depressive disorder 3548 9007 F33.8 wellbutrin 150 mg bidmonitor for effectpsyc h eval prn Hyperlipidemia 57603821 E78.2 lipitor 10 mg qdcontinue d Chronic back pain 730217 002 G89.29 maintained on fentanyl 100 mcg q 72 hourcontin ued [id number] JACKELYN STOREY AT [address] [address] 05/24/2024 12:21:10 05/25/2024 16:11:05 Benign prostatic hyperplasia 217045120 N40.1 likely dx he states from PCPrestart flomax 0.4 mg qhsfollow up with pt in one week to see if improvemen tconsider UA if burning continues [id number] MD CORDELIA Otoole AT [address] [address] 05/28/2024 22:12:48 2024 14:08:55 Orthostatic hypotension 54011919 I95.1 No indication of why diltiazem was increased from 120 mg qd to 240 mg qd.But d/c summary says can wean down to 120 mg after transfer back here, so will do that.Will decrease to 120 mg qd and monitor orthostati cs daily x 3. Dyspnea 686780648 R06.02 With some increased SOB today. Sats stayed stable.CXR c/w with hx of previous right pneumothor aces and procedures .Now at baseline.M onitor [id number] RUSSELL CRUZ AT [address] [address] 06/04/2024 10:35:03 06/08/2024 12:55:12 Orthostatic hypotension 04706888 I95.1 He was getting cardizem 240 mg that was decreased to 120 mg daily on 05/29ortho BP for 3 days previously ordered- ? doneBP mainly 110-130's Dyspnea 678208061 R06.02 stable at baselineCX R c/w with hx of previous right pneumothor aces and procedures .continue oxygen ( now dependent) Atrial fibrillation 4943 6004 I48.0 eliquis 5 mg bidmetopro lol 50 mg bidcardize m 120 mg daily. [id number] Bryant STOREY AT [address] [address] 06/07/2024 07:51:58 06/08/2024 13:35:02 Respiratory tract congestion and cough 950630168 R05.9 start flonase 50mcg/actu ation 1 spray each nostril qdmonitor for relief [id number] Bryant STOREY AT [address] [address] 06/10/2024 07:35:38 06/11/2024 10:26:41 Orthostatic hypotension 78665856 I95.1 He was getting cardizem 240 mg that was decreased to 120 mg daily on 05/29ortho BP for 3 days previously ordered- ? doneBP mainly 100s-120s, SBP 90s recently Dyspnea 615742993 R06.02 stable at baselineCX R c/w with hx of previous right pneumothor aces and procedures .continue oxygen (now dependent) Atrial fibrillation 4943 6004 I48.0 rate controlled continue eliquis 5 mg bid, metoprolol 50 mg bid, cardizem 120 mg daily.If BP remains on low side consider reducing cardizem Respirator y tract congestion and cough 244235414 R05.9 IMproved with flonasecon tinue flonase 50mcg/actu ation 1 spray each nostril qdchange geritussin from prn to scheduled x 7-10 daysmonito r for relief Right pneumothorax 49983 3001 J93.9 see HPIs/p talc pleurodesi she will need follow up with Dr. Riley in 2 weeks with CXR prior to visitmonit or resp status closely Chronic ob structive pulmonary disease 86918154 J44.9 no acute sxson 4 L O2 at baselineCT A with ISLD and emphysemaC ontinue prednisone 10 mg daily, albuterol q4h prn for sob, duoneb q6h prn for sob, trelegy inhaler daily Depressive disorder 4128 9007 F32.A Mood good todayConti nue wellbutrin 150 mg x96srayrgh r mood and consult [facility] if needed Peripheral nerve disease 568096842 G64 continue lyrica 75 mg po daily Essential hypertension 82822128 I10 BP readings borderline lowcontinu e metoprolol 50 mg bid, cardizem 120 mg daily.nereyda tor labs & BP Myelodyspl astic syndrome (clinical) 763938620 D46.9 pain well controlled Continue fentanyl patch 100 mcg/hr q72h, oxycodone 10 mg q4h prn, tylenol 975 mg po TIDmonitor pain response Chronic back pain 245914 002 G89.29 see above Anemia 464943830 D64.9 stable on recent labsmonito r CBC [id number] Bryant STOREY AT [address] [address] 06/11/2024 11:09:33 06/14/2024 14:20:01 Allergic conjunctivitis of bilateral eyes 0431238225 67972 H10.13 no concerns for bacterial infection todaystart ketotifen eye drops BIDmonitor for resolution Acute exac erbation of chronic obstructive pulmonary disease 013330231 J44.1 concerns for COPD exacerbati on today [...] for sob, trelegy inhaler daily Right pneumothorax 36660 3001 J93.9 s/p talc pleurodesi snow with respirator y crackes, cough and SOBhas follow up next week with Dr. Mercedes carlton resp status closely [id number] Bryant STOREY AT [address] [address] 06/12/2024 10:41:43 06/14/2024 14:39:09 Respiratory tract congestion and cough 999211669 R05.9 IMproved with flonasecon tinue flonase 50mcg/actu ation 1 spray each nostril qd, geritussin q6h x 7-10 dayscovid negflu orderedmon itor for relief Anemia 170161302 D64.9 stable on recent labsmonito r CBC Acute exac erbation of chronic obstructive pulmonary disease 581231179 J44.1 secondary to PNAcovid neg,on 4 L O2 at baselineCT A with ISLD and emphysemaC ontinue prednisone to 40mg qd x 5 days then resume daily 10mg doseContin ue duonebs q6h x 5 days, then resume PRN, albuterol q4h prn for sob, trelegy inhaler daily Allergic conjunctivitis of bilateral eyes 0780134277 47025 H10.13 no concerns for bacterial infection todaystart ketotifen eye drops BIDmonitor for resolution Right pneumothorax 36550 3001 J93.9 s/p talc pleurodesi snow with PNAhas follow up next week with Dr. Riley but unclear if transporta tion can be arrange. Staff encouraged to reschedule for ASAPmonito r resp status closely Pneumonia 777274635 J18. 9 CXR patchy airspace disease with concerns for PNALabs without leukocytos is or left shiftstart ed on z-demario and doxycyclin e (will d/c doxy and change to Augmentin 875/125 BID x 7 days for better coveragefa x over recent CXR to thoracic surgery [id number] Bryant STOREY AT [address] [address] 06/14/2024 07:30:00 06/16/2024 08:46:20 Pneumonia 019677437 J18.9 Continue z-demario and augmentinf ax over recent CXR to thoracic surgerymon itor for resolution consider repeat CXR 1 month Acute exac erbation of chronic obstructive pulmonary disease 965245349 J44.1 on 4 L O2 at baselineCT A with ISLD and emphysemaC ontinue prednisone to 40mg qd x 5 days then resume daily 10mg doseContin ue duonebs q6h x 5 days, then resume PRN, albuterol q4h prn for sob, trelegy inhaler daily Right pneumothorax 82234 3001 J93.9 s/p talc pleurodesi snow with PNAhas follow up next week with Dr. Riley but has to be reschedule d due to lack of transporta tionmonito r resp status closely Respirator y tract congestion and cough 835362923 R05.9 IMproved with flonasecon tinue flonase 50mcg/actu ation 1 spray each nostril qd, geritussin q6h x 7-10 dayscovid negflu orderedmon itor for relief Anemia 842490350 D64.9 stable on recent labsmonito r CBC Allergic conjunctivitis of bilateral eyes 5838005203 82124 H10.13 continue ketotifen eye drops BIDmonitor for resolution Myelodyspl astic syndrome (clinical) 950151233 D46.9 pain well controlled Continue fentanyl patch 100 mcg/hr q72h, oxycodone 10 mg q4h prn, tylenol 975 mg po TIDmonitor pain response Tight chest 76245188 R07 .89 reports sxs indigestio n; no radiation of pain or difficulty breathingw ill order TUMS prn [id number] Austin_Alessia AL[place]ARE[place] AT [address] [address] 06/16/2024 07:44:58 06/22/2024 09:46:20 Pneumonia 627099324 J18.9 completes z-demario today and augmentin ends on it or for resolution consider repeat CXR 1 month Acute exac erbation of chronic obstructive pulmonary disease 801853071 J44.1 on 4 L O2 at baselineCT A with ISLD and emphysemaC ontinue prednisone taper back to 10mg qdContinue duonebs q6h x 5 days, then resume PRN, albuterol q4h prn for sob, trelegy inhaler daily Right pneumothorax 13443 3001 J93.9 s/p talc pleurodesi snow with PNAf/u Dr. Riley reschedule d to 11monit or resp status closely Respirator y tract congestion and cough 313635807 R05.9 IMprovedco ntinue flonase 50mcg/actu ation 1 spray each nostril qd, geritussin q6h x 7-10 daysmonito r for relief Tight chest 72382887 R07 .89 resolved with no recurrent sxs [id number] Bryant STOREY AT [address] [address] 06/17/2024 10:08:00 06/22/2024 10:34:00 Myelodysplastic syndrome (clinical) 630301993 D46.9 pain well controlled Continue fentanyl patch 100 mcg/hr q72h, oxycodone 10 mg q4h prn, tylenol 975 mg po TIDcontinu e Pyridoxine 50mg qdmonitor pain response Anemia 075969604 D64.9 check CBC tomorrow (will be d/c home in the next week) [id number] Bryant STOREY AT [address] [address] 06/22/2024 07:42:12 06/23/2024 14:39:27 Pneumonia 709542639 J18.9 completed z-demario and augmentinm onitor for recurrent sxsf/u PCP outpatient for repeat CXR 1 month to determine resolution Acute exac erbation of chronic obstructive pulmonary disease 724517322 J44.1 acute exacerbati on resolvedon 4 L O2 at baselineCT A with ISLD and emphysemaC ompleted prednisone taper back to 10mg qdContinue duonebs PRN, albuterol q4h prn for sob, trelegy inhaler daily Right pneumothorax 45487 3001 J93.9 s/p talc pleurodesi streated for PNA on CXR last weekf/u Dr. Riley reschedule d to 07/06stat 2V CXR today eval interval change prior to d/cmonitor resp status closely Respirator y tract congestion and cough 309937875 R05.9 IMprovedco ntinue flonase 50mcg/actu ation 1 spray each nostril qd, geritussin q6h prnmonitor for relief Tight chest 14778802 R07 .89 resolved with no recurrent sxs Myelodyspl astic syndrome (clinical) [id number] D46.9 pain well controlled Continue fentanyl patch 100 mcg/hr q72h, oxycodone 10 mg q4h prn, tylenol 975 mg po TIDcontinu e Pyridoxine 50mg qdmonitor pain response Anemia 848527087 D64.9 stable on recent labsHgb 9.2 (increased from previous BL 8.2-8.7)mo nitor CBC Allergic conjunctivitis of bilateral eyes [id number] 88786 H10.13 continue ketotifen eye drops BID change to prn once resolvedmo nitor for resolution Orthostati c hypotension 03252062 I95.1 He was getting cardizem 240 mg that was decreased to 120 mg daily on P mainly 100s-120s, SBP 90s recently Atrial fibrillation 4943 6004 I48.0 rate controlled continue eliquis 5 mg bid, metoprolol 50 mg bid, cardizem 120 mg daily.If BP remains on low side consider reducing cardizem Chronic ob structive pulmonary disease 74953792 J44.9 no acute sxson 4 L O2 at baselineCT A with ISLD and emphysemaC ontinue prednisone 10 mg daily, albuterol q4h prn for sob, duoneb q6h prn for sob, trelegy inhaler daily Depressive disorder 3548 9007 F32.A Mood good todayConti nue wellbutrin 150 mg [id number] r mood and consult [facility] if needed Peripheral nerve disease 546206664 G64 continue lyrica 75 mg po daily Essential hypertension 65336057 I10 BP readings borderline lowcontinu e metoprolol 50 mg bid, cardizem 120 mg daily.nereyda tor labs & BP Chronic back pain 608504 002 G89.29 see above [id number] Bryant STORE[facility] AT [address] [id number] 06/23/2024 07:14:18 06/24/2024 14:49:38 Pneumonia 189389019 J18.9 completed z-demario and augmentinm onitor for recurrent sxsf/u PCP outpatient for repeat CXR 1 month to determine resolution Acute exac erbation of chronic obstructive pulmonary disease 670274584 J44.1 acute exacerbati on resolvedon 4 L O2 at baselineCT A with ISLD and emphysemaC ompleted prednisone taper back to 10mg qdContinue duonebs PRN, albuterol q4h prn for sob, trelegy inhaler daily Right pneumothorax 80377 3001 J93.9 s/p talc pleurodesi streated for PNA on CXR last weekf/u Dr. Riley reschedule d to 1112monit or resp status closely Respirator y tract congestion and cough 987630547 R05.9 IMprovedco ntinue flonase 50mcg/actu ation 1 spray each nostril qd, geritussin q6h prnmonitor for relief Tight chest 32222030 R07 .89 resolved with no recurrent sxs Myelodyspl astic syndrome (clinical) 660585262 D46.9 pain well controlled Continue fentanyl patch 100 mcg/hr q72h, oxycodone 10 mg q4h prn, tylenol 975 mg po TIDcontinu e Pyridoxine 50mg qdmonitor pain response Anemia 678041577 D64.9 stable on recent labsHgb 9.2 (increased from previous BL 8.2-8.7)mo nitor CBC Allergic conjunctivitis of bilateral eyes 6298604629 83676 H10.13 continue ketotifen eye drops BID change to prn once resolvedmo nitor for resolution Orthostati c hypotension 81368567 I95.1 He was getting cardizem 240 mg that was decreased to 120 mg daily on P mainly 100s-120s, SBP 90s recently Atrial fibrillation 4943 6004 I48.0 rate controlled continue eliquis 5 mg bid, metoprolol 50 mg bid, cardizem 120 mg daily.If BP remains on low side consider reducing cardizem Chronic ob structive pulmonary disease 36957925 J44.9 no acute sxson 4 L O2 at baselineCT A with ISLD and emphysemaC ontinue prednisone 10 mg daily, albuterol q4h prn for sob, duoneb q6h prn for sob, trelegy inhaler daily Depressive disorder 2266 9435 F32.A Mood good todayConti nue wellbutrin 150 mg [id number] r mood and consult [facility] if needed Peripheral nerve disease 113637260 G64 continue lyrica 75 mg po daily Essential hypertension 71483485 I10 BP readings borderline lowcontinu e metoprolol 50 mg bid, cardizem 120 mg daily.nereyda tor labs & BP Chronic back pain 169754 002 G89.29 see above Hyperlipidemia 30348112 E78.2 Health Concerns Section Related Observation LastModified by Organization Detai ls LastModified Time None Recorded Concern Status LastModified by Organization Details LastModified Time None Recorded Advance Directives Directive Y: Payers Insurance Date Sequence Insurance Name Policy Number Policy Workman Covered Member ID Workman Member ID Guarantor Name 06/04/2024 2 [place] [facility] Edward Courchesne [id number] Edward Courchesne 06/01/2024 1 MEDICARE [place]: [facility] Edward N Courchesne [id number] Edward Courchesne Notes Date Note Type Note [...] transportation Patient seen lying in bed in [facility]. He tells me he is feeling better but unsure if related to prednisone increase. He does have mild chest tightness and he states it feels like GERD. No radiation of pain and intermittently. He is agreeable to f/u thoracic surgery [place] which has been rescheduled to Early Jun. Austin_Alessia-Oleg is [address], [address], [place], [address], [employer] 06/14/2024 11:33:43 06/16/2024 text/html ROS as noted [...] per patient and nursing. Bhavesh is [address], [address], [place], [address], [employer] 06/16/2024 11:44:52 06/17/2024 text/html ROS as noted in the HPI This is a 79 y.o male being seen for acute rounding visit past medical history of afib on eliquis, COPD/ asthma on 4 L, recurrent pneumothorax, prior smoker, myelodysplastic disease, peripheral neuropathy, chronic back pain, HTN, HLD. Nursing tells me patient requesting to see this speech writer to review meds. Nursing reports he [...] otherwise feeling okay today Bhavesh is [address], [address], [place], [address], [employer] 06/17/2024 12:14:57 06/22/2024 text/html ROS as noted [...] to the ED for urgent eval at [facility]. He was found with spontaneous pneumothorax [...] he tells me he feels okay today. [facility] is [address] [place] [address], [address], [place], [address], [facility] [employer] 06/22/2024 12:55:26 06/23/2024 text/html ROS as noted [...] to the ED for urgent eval at [facility]. He was found with spontaneous pneumothorax as well as klebsiella bacteremia due to UTI. He underwent talc pleurodesis on 05.08, pigtail removed on 05/16 by thoracic surgery. Repeat imaging showed mild increase in small right apical pneumothorax but then second repeat showed area was stable. His eliquis was restarted, he was stabilized and felt he could DC back to [facility]. Patient was seen last month for urinary [...] Patient seen today sitting in bed in [facility]. he tells me he feels okay today and ready for d/c. Reviewed sxs requiring ED eval, patient verbalized understanding Bhavesh is [address], [address], [place], [address], [facility] [employer] 06/23/2024 10:45:04
--- OUTSIDE RECORDS SUMMARY | 2025-06-12 11:33 | XMS_ITS | Encounter Summary ---
Author Organization [facility] Address [address] [place] [address] Care Team Providers Care Machine Binding Folder Name Role Phone Nikita Rivera MD Primary Care Provider Sina king Encounter Details Date Type Department Care Team Description 09/23/2018 Rare/Endangered Species Specialist Report Medical Records [address] [place] [id number] Nikita Rivera MD Social History Tobacco Use Types Packs/Day Years Used Date Smoking Tobacco: Former Cigarettes 0.5 Smokeless Tobacco: Never Alcohol Use Standard Drinks/Week Comments No 0 (1 standard drink = 0.6 oz pur e alcohol) Sex Assigned at Date Recorded Not on file documented as of this encounter Plan of Treatment Not on file documented as of this encounter Visit Diagnoses Not on filedocumented in this encounter Care Teams Machine Binding Folder Relationship Specialty Start Date End Date Nikita Rivera MD PCP - General Internal Medicine 04/15/18 documented as of this encounter
--- OUTSIDE RECORDS SUMMARY | 2025-06-12 11:34 | XMS_ITS | Clinical Summary ---
Author Organization [facility] Address [address] [place] [address] Care Team Providers Care Outpatient Program Coordinator Name Role Phone Nikita Rivera MD Primary Care Provider [phone] Allergies No known active allergies Medications albuterol [...] Tobacco: Former Tobacco Cessation:Counseling Given: Not Answered [facility] Utilities Answer Date Recorded In the past [...] place to sleep or slept in a skilled nursing (including now)? No 05/11/2024 Sex and Gender [...] Vaccine (1 of 2) 1966 RSV Vaccine 50 years and old er and Patients (1 - 1-dose 75+ series) 2022 Influenza Vaccine 03/25/2025 06/14/2024 Hepatitis B Vaccines Aged Out No long er eligible based on patient's age to complete this topic Insurance MEDICARE PART A & B [facility] Advance Directives * Full Code (Latest Code Status on File) Date Activated Date Inactivated Comments 05/07/2024 11:52 PM * Full Code Date Activated Date Inactivated Comments 04/09/2024 2:40 AM 05/07/2024 11:00 PM Question Answer Comments Decision Thoroughly Discussed with: Patient Care Teams Outpatient Program Coordinator Relationship Specialty Start Date End Date Nikita Rivera MD [address] [place] [address] [place] [id number] PCP - General Internal Medicine 05/11/24
--- OUTSIDE RECORDS SUMMARY | 2025-06-12 11:34 | XMS_ITS | Patient Health Record ---
Author Organization [facility], MD Address [address] [place] [address] [place] [address] Care Team Providers Care Underwriting Support Manager Name Role Phone Nikita Rivera MD Primary Care Provider Unavailab Dr. Salbador Fuentes III Unavailable [phone] Allergies Allergen (clinical drug ingredient) Drug/Non Drug [...] Problem Status W/U Status Risk Notes Problem 9773884 Former smoker (Z87.891) Active confirmed He is not smoking now and seems motivated to remain abstinent. We discussed a strategy to prevent relapse in the future. Problem 933182204 Overweight (E66.3) Active confirmed His body mass index is 28. He has lost 8 pounds. We reviewed his weight loss strategy. He will continue to lose weight at a rate of one half of a pound per week. Problem Myelodysplastic syndrome (160796916) Myelodysplastic syndrome, unspecified (D46.9) Active confirmed His mean cell volume Is slowly increasing. No change in his blood work has been noted. Current therapy was continued. The vitamin B12 and folic acid levels are normal. Problem Chronic obstructive pulmonary disease (48465518) Chronic obstructive pulmonary disease, unspecified (J44.9) Active confirmed His COPD is stable and he is not wheezing at this time. He says he is not smoking. He denies any coughing or wheezing and shortness of breath is only with prolonged exertion. Problem Osteoarthritis (434670868) Polyosteoarthriti s, unspecified (M15.9) Active confirmed He has been continued on his chronic pain regimen by his primary care physician. Problem 03417385 Idiopathic peripheral neuropathy (G60.9) Active confirmed Problem 03736713 Atrial fibrillation, unspecified type (I48.91) Active confirmed Problem 266744790 Stage 2 chronic kidney disease (N18.2) Active confirmed His renal function is stable. No change in his regimen was needed. His BUN is 17 with a creatinine of 1.1. Encounters Encounter Location Date Provider Diagnosis Salbador Ybarra III, MD [address] [place] [address] [place] [address] 08/02/2024 Salbador Ybarra Myelodysplastic syndrome, unspecified D46.9 [...] NGS [address] [place] [address] [phone] [id number] Jordy Trent Self - patient is the insured MEDICAID [place] [address] [place], [place] [id number] [phone] [id number] Jordy Trent Self - patient is the insured Medical (General) History Medical History History ICD Code Bilateral rotator cuff surgery COPD Refractory Anemia with ringed sideroblas ts/ Myelodydplastic syndrome diverticulitis on December 18, 2001. Osteoarthitis with chronic back pain peripheral neuropathy Surgical History Surgery Date(Month/Year) bowel resection for diverticulitis 2001
--- OUTSIDE RECORDS SUMMARY | 2025-06-12 11:34 | XMS_ITS | Encounter Summary ---
Author Organization [facility] Address [address] [place] [address] Care Team Providers Care Toaster Operator Name Role Phone Nikita Rivera MD Primary Care Provider Sina king Encounter Details Date Type Department Care Team Description 04/17/2018 Release of Information Medical Records [address] [place] [id number] Abstract, Provider Social History Tobacco Use Types Packs/Day Years [...] on filedocumented in this encounter Care Teams Toaster Operator Relationship Specialty Start Date End Date Nikita Rivera MD PCP - General Internal Medicine 04/15/18 documented as of this encounter
--- OUTSIDE RECORDS SUMMARY | 2025-06-12 11:34 | XMS_ITS | Encounter Summary ---
Author Organization [facility] Address [address] [place] [address] Care Team Providers Care Dry Finisher Name Role Phone Nikita Rivera MD Primary Care Provider [phone] Encounter Details Date Type Department Care Team (Late st Contact Info) Description 06/28/2024 Scanned Document [facility] Thoracic Surgery [place] [address] [place] [address] Quyen Barajas PA-C [address] [place], [place] [id number] Social History Tobacco Use Types Packs/Day Years Used Date Smoking Tobacco: Former Cigarettes Smokeless Tobacco: Former [facility] Utilities Answer Date Recorded In the [...] place to sleep or slept in a snf (including now)? No 05/11/2024 Sex and Gender [...] on filedocumented in this encounter Care Teams Dry Finisher Relationship Specialty Start Date End Date Nikita Rivera MD [address] [place] [address] [place] [address] PCP - General Internal Medicine 05/11/24 documented as of this encounter
--- OUTSIDE RECORDS SUMMARY | 2025-06-12 11:35 | XMS_ITS | Clinical Summary ---
Author Organization [facility] Address [address] [place] [address] Care Team Providers Care Medical Anthropology Director Name Role Phone Nikita Rivera MD Primary Care Provider Unavai lable Allergies No known active allergies Medications Medication Sig Dispensed Refills Start Date End Date Status FentaNYL (DURAGESIC-100 TD) Place onto the skin. 0 Active atorvastatin (LIPITOR) 40 MG tablet Take 40 mg by mouth daily. 0 Active Umeclidinium [place] 62.5 MCG/INH AEROSOL POWDER,BREATH ACTIVATED Inhale into the lungs. 0 Active fluticasone-salmeterol (ADVAIR) 250-50 MCG/DOSE diskus inhaler Inhale 1 Puff into the lungs every 12 hours. 0 Active ALBUTEROL SULFATE 108 (90 BASE) MCG/ACT Aero Soln Inhale 2 Puffs into the lungs every 4 hours as needed. 0 Active pregabalin (LYRICA) 75 MG capsule Take 75 mg by mouth 2 times daily. 0 Active CPAP Historical (HISTORICAL CPAP) Inhale into the lungs. [facility] 0 Active Oxygen Historical (HISTORICAL OXYGEN) Inhale into the lungs. [facility] qhs 0 Active Kxmbhxngqoq-Iivsfdcdk-H ilant (TRELEGY ELLIPTA) 100-62.5-25 MCG/INH AEROSOL POWDER,BREATH ACTIVATEDIndications:Ch ronic obstructive pulmonary disease with acute exacerbation (HCC) Inhale 1 Puff into the lungs daily. 1 Each 6 04/15/2018 Active Active Problems Problem Noted Date GERD (gastroesophageal reflux disease) 0 05/05/2018 Depression 05/05/2018 Chronic back pain 05/05/2018 Diverticulitis 05/05/2018 Overview: H/o perforated tic Peripheral neuropathy 05/05/2018 Chronic bronchitis 04/15/2018 Myelodysplastic syndrome 04/15/2018 Overview: Refractory anemia with sideroblasts Supplemental oxygen dependent 04/15/2018 Hyperlipidemia 04/15/2018 Family History Medical History Relation Name Comments Suicide Father Relation Name Status Comments Father Social History Tobacco Use Types Packs/Day Years Used Date Smoking Tobacco: Former Cigarettes 0.5 Smokeless Tobacco: Never Alcohol Use Standard Drinks/Week Comments No 0 (1 standard drink = 0.6 oz pur e alcohol) Sex Assigned at Date Recorded Not on file Last Filed Vital Signs Vital Sign Reading Time Taken Comments Blood Pressure 142/62 11/04/2018 9:36 AM EDT Pulse 68 11/04/2018 9:36 AM EDT Temperature - - Respiratory Rate 15 11/04/2018 9:36 AM EDT Oxygen Saturation 90% 11/04/2018 9:36 AM EDT Inhaled Oxygen Concentration - - Weight 98.9 kg (218 lb) 11/04/2018 9:36 AM EDT Height 182.9 cm (6') 11/04/2018 9:36 AM EDT Body Mass Index 29.57 11/04/2018 9:36 AM EDT Plan of Treatment Health Maintenance Due Date Last Done Comments Covid-19 Vaccine (#1) 1945 DEPRESSION SCREEN 1959 HEPATITIS C SCREENING 1965 DTAP/TDAP/TD (1 - Tdap) 1966 CHOLESTEROL SCREENING 1967 SHINGLES VACCINE (1 of 2) 1997 FALL RISK ASSESSMENT 2012 PNEUMOCOCCAL VACCINE (1 - PCV) 2012 BMI CHECK/ADVISE 08/25/2024 INFLUENZA (#1) 2025 Care Teams Medical Anthropology Director Relationship Specialty Start Date End Date Nikita Rivera MD PCP - General Internal Medicine 04/15/18
[2025-06-12] MEDS: Lactated Ringers 1,000 ML 999 ML IV (11:36)
[2025-06-12 11:42] LABS: Alanine Aminotransferase 26 U/L (0-40); Albumin Level 3.7 g/dL (3.5-5.0); Alkaline Phosphatase 73 U/L (39-117); Anion Gap 17 (12-20); Aspartate Amino Transferase 24 U/L (5-37); Blood Urea Nitrogen 22 mg/dL (9-16); Calcium 8.8 mg/dL (8.4-10.2); Carbon Dioxide 29 mmol/L (22-29); Chloride 96 mmol/L (96-108); Creatinine Clr Calc Pharmacy 69.1; Estimated Glomerular Filt Rate > 60; Potassium 4.1 mmol/L (3.3-5.1); Sodium 138 mmol/L (135-145); Total Protein 6.9 g/dL (6.5-8.0)
[2025-06-12 11:48] LABS: IDNOW Serial# 58CA691E; Influenza B2 Negative (Negative)
[2025-06-12 11:49] LABS: COVID-19 Test Negative (Negative); IDNOW Serial# 55D5AD1C
[2025-06-12 11:55] LABS: NT Pro B Type Natriuretic Pept 414.0 pg/mL (<300); Troponin-I High Sensitivity 31.4 ng/L (<3.5-35.0)
--- NOTE | 2025-06-12 13:07 | PC.NURSE ---
Pt presented to ED via EMS from home, reporting 1 week of feeling sick , URI/flu-like symptoms. Pt has hx of COPD and CHF, on 2L O2 NC baseline. Reporting SOB, cough, general malaise, fevers. EMS found pt to be hypoxic at 80% on 2L O2. Pt is alert and oriented, breathing slightly labored, sating well on 3L O2. Cough noted, left sided rhonchi. Tachy afib 100-150 on monitor.
[2025-06-12] MEDS: iohexoL 350 MG/ML 100 ML INFUS..BTL 65 ML IV (13:20)
--- NOTE | 2025-06-12 13:23 | PC.NURSE ---
Addendum entered by Sandra Busch RN 06/12/25 18:50: left* thigh Original Note: Fentanyl patch on upper right thigh, pt placed on himself 2 days ago
[2025-06-12 13:38] LABS: Venous Blood Gas Refer to POC result
--- NOTE | 2025-06-12 17:53 | P.HPHOSP_ITS ---
History of Present Illness Date of Service: 06/12/25 Attending physician on admission: Xu Avilez Chief Complaint: shortness of breath 80-year-old male with past medical history significant for spontaneous pneumothorax, COPD on 3-4 L of oxygen, HLD, BPH, chronic back pain on fentanyl patch and liquid morphine, arthritis and history of opiate use disorder who presented to the hospital complaining of shortness of breath. Patient states that it began approximately 1 week ago, mentions he has a nurse that comes to his home, and was told to come to the hospital to be treated. On labs with leukocytosis, pro BNP 414, negative flu, CTA with peribronchial thickening in the right lower lobe with infiltrate. Of note, patient is under hospice care, however he mentioned that he is still a full code and wishes to have everything done and go back to hospice care at home. Review of Systems 2 Review of Systems: 14 point ROS obtained, negative except a s stated above FORMERLY [facility], [facility]–1983 Medical History (Updated 06/12/25 @ 17:55 by Xu Avilez MD) Chronic anemia Atrial fibrillation with rapid ventricular response Chronic back pain HLD (hyperlipidemia) Osteoarthritis BPH (benign prostatic hyperplasia) Skin lesion of back Chronic obstructive pulmonary disease, unspecified Diverticulosis of large intestine without perforation or abscess without bleeding 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 Family History Mother Hypertension Father Hypertension Surgical History History of excision of lesion (~04/17/23) History of repair of rotator cuff History of colon resection (~2001) Social History Household Members: Unknown / Unable to assess Housing: Unknown / Unable to assess Do you presently have visiting nurse or other home services: Yes Alcohol intake: never Comment: pt refusing alarms Patient Tobacco Use Status: Former Tobacco user Tobacco use type: Cigarette Smoked in Last 30 Days: No Use of substances other than those prescribed or required for medical reasons: No Advance Directives: Yes Advance Directives on File: Yes Advance Directives Date on File: 03/29/24 service: No Current occupational status: employed and retired 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 Allergies Allergy/AdvReac Type Severity Reaction Status Date / Time No Known Allergies Allergy Mild NONE Verified 06/12/25 10:37 Active Medications: Current Medications Acetaminophen (Acetaminophen 325 Mg Tablet) 650 mg PO Q6H PRN PRN Reason: Pain, Mild 1-3,fever,headache Albuterol/Ipratropium (Albuterol/Iprat 2.5/0.5mg 3 Ml Ampul.Neb) 3 ml INHALE RQ6H WHILE AWAKE [facility] Albuterol/Ipratropium (Albuterol/Iprat 2.5/0.5mg 3 Ml Ampul.Neb) 3 ml INHALE RQ6H [facility] Apixaban (Apixaban 5 Mg Tablet) 5 mg PO BID [facility] Azithromycin (Azithromycin 500 Mg Tablet) 500 mg PO DAILY [facility] Stop: 06/18/25 08:59 Benzonatate (Benzonatate 100 Mg Capsule) 100 mg PO TID PRN PRN Reason: Cough Calcium Carbonate (Calcium Carbonate 750 Mg Tab.Chew) 750 mg PO Q4H PRN PRN Reason: Heartburn Ceftriaxone Sodium (Ceftriaxone Sodium 1 Gm Vial) 1 gm IVPUSH Q24H [facility] Dextrose (Dextrose 50 % 25 Gm/50 Ml Syringe) 25 gm IVPUSH Q15M PRN; Protocol PRN Reason: per Hypoglycemia Standing Ord. Fentanyl (Fentanyl 100 Mcg Patch.Td72) mcg TRANSDERMA Q3D [facility] Stop: 06/18/25 18:01 Glucose (Glucose Gel 15 Gm Gel..Gram.) 15 gm PO Q15M PRN; Protocol PRN Reason: per Hypoglycemia Standing Ord. Insulin Human Lispro (Insulin Lispro 100 Unit/Ml 3 Ml Vial) 0 unit SUBCUT QIDACHS [facility]; Protocol Magnesium Hydroxide (Milk Of Magnesia 30 Ml Oral.Susp) 30 ml PO DAILY PRN PRN Reason: Constipation Melatonin (Melatonin 3 Mg Tablet) 6 mg PO BEDTIME PRN PRN Reason: Insomnia Methylprednisolone Sodium Succinate (Methylprednisolone Sod Succ 40 Mg/Ml Vial) 40 mg IVPUSH BID@0630,1630 [facility] Stop: 06/17/25 17:44 Last Admin: 06/12/25 17:52 Dose: 40 mg Non-Formulary Medication (Morphine Concentrate) 10 mg PO Q4H PRN PRN Reason: Pain (Scale Score 4-6) Pantoprazole Sodium (Pantoprazole Sodium 40 Mg/10 Ml Vial) 40 mg IVPUSH DAILY@0630 [facility] Sodium Chloride (0.9 % Sodium Chloride Flush 3 Ml Syringe) 3 ml IVFLUSH QSHIFT [facility] Home Medications ?Medication ?Instructions ?Recorded ?Confirmed ?Last Taken ?Type atorvastatin 10 mg tablet 10 mg PO DAILY 06/19/20 04/0 04/1810/16/23 History cholecalciferol (vitamin D3) 25 25 mcg PO DAILY 11/30/24 10/16/23 History mcg (1,000 unit) tablet multivitamin 1 tab PO DAILY 10/17/2304/1810/16/23 History latanoprostene bunod 0.024 % eye 1 drp ophthalmic (eye ) BEDTIME 01/07/24 11/30/24 Unknown History drops (Vyzulta) pregabalin 75 mg capsule 150 mg PO DAILY 01/07/2404/18 Unknown History pyridoxine (vitamin B6) 50 mg 50 mg PO DAILY 01/07/24 11/30/24 Unknown History capsule (Vitamin B-6) prednisone 10 mg tablet 10 mg PO DAILY 02/28/2404/1803/28/24 History bupropion HCl 150 mg tablet,12 hr 150 mg PO BID 11/30/24 Unknown History sustained-release tamsulosin 0.4 mg capsule 0.4 mg PO DAILY 11/30/2404/18 Unknown History morphine concentrate 100 mg/5 mL 10 mg PO Q4H PRN Pain (Scale Score 06/12/25 06/12/25 Unknown History (20 mg/mL) oral solution 4-6) Physical Exam 2 Vital Signs and Narrative: Vital Signs: Last Vital Signs Temp 98.6 F 06/12/25 17:51 Pulse 86 06/12/25 17:51 Resp 17 06/12/25 17:51 BP 121/80 06/12/25 17:51 Pulse Ox 96 06/12/25 17:51 O2 Del Method Nasal Cannula 06/12/25 17:51 O2 Flow Rate 3 06/12/25 17:51 Oxygen Flow Rate 2 06/12/25 10:35 BMI result Body Mass Index 29.4 General: AxOx3, in distress on supplemental oxygen Head: AT/NC ENT: dry mucous membranes Neck: supple CVS; increased RR, S1 S2 normal Lungs: coarse bilateral breath sounds Abd: Soft non tender, non distended Ext: No edema and no calf tenderness MSK: moving all 4 limbs Skin: No cyanosis or edema Psych: Cooperative with exam Neurology: no focal deficit Results Labs 06/12/25 10:52 06/12/25 10:52 Labs: Laboratory Results - last 24 hr 06/12/25 06/12/25 06/12/25 10:52 10:54 11:04 MCV 107.8 H MCH 36.0 H MCHC 33.4 RDW 15.9 Plt Count 240 D MPV 11.0 Immature Gran % (Auto) 1.6 H Neut % (Auto) 80.0 H Lymph % (Auto) 11.6 L [place] % (Auto) 6.3 Eos % (Auto) 0.4 Baso % (Auto) 0.1 Lymph # (Auto) 1.6 [place] # (Auto) 0.8 Eos # (Auto) 0.1 Baso # (Auto) 0.0 Abs Immat Gran (auto) 0.21 H Absolute Neuts (auto) 10.7 H Absolute Nucleated RBC 0.040 H Nucleated RBC % (auto) 0.3 H VBG pH 7.46 H VBG pCO2 53 VBG pO2 48 VBG HCO3 38 H VBG O2 Saturation 72.0 VBG Base Excess 12.7 Anion Gap 17 Estim Creat Clear Calc 69.1 Estimated GFR > 60 Random Glucose 134 H Lactic Acid 1.9 Calcium 8.8 Total Bilirubin 1.0 AST 24 ALT 26 Alkaline Phosphatase 73 Troponin I High Sens 31.4 D NT-Pro-B Natriuret Pep 414.0 H Total Protein 6.9 Albumin 3.7 COVID-19 (MARGIE) Negative COVID-19 Clin Com See Note Influenza Type A (BIANCA) Negative Influenza Type B (BIANCA) Negative Influenza A & B Note See Note Assessment and Plan (1) Acute hypoxic respiratory failure: Status: Acute (2) Chronic obstructive pulmonary disease, unspecified: Qualifiers: COPD type: emphysema Status: Acute Plan Assessment: 80-year-old male who presented to the hospital for worsening shortness of breath, found to be septic secondary to pneumonia. Sepsis, likely secondary to pneumonia Pneumonia Acute hypoxic respiratory failure secondary to above COPD -imaging reviewed, s/p sepsis bolus given -we will initiate ceftriaxone and azithromycin -we will initiate IV Solu-Medrol 40 mg q.6 hours -we will initiate scheduled DuoNebs as well as p.r.n. -monitor and titrate oxygen for SpO2 greater than 88% in the setting of COPD -incentive spirometer ordered -respiratory panel ordered -given high-dose steroids, we will initiate Protonix for GI PPX -insulin sliding scale while on high-dose steroids. Osteoarthritis with chronic back pain -we will continue with fentanyl patch as well as morphine, which is patient's usual treatment for his pain Anemia, suspect of chronic disease Monitor for any signs of bleeding, we will transfuse for hemoglobin less than 7 FEN: not indicated, replete as needed, regular GI PPx: Protonix DVT PPx: Eliquis Code STatus Full code, patient under hospice care at home Quality Stroke Does the patient have a stroke diagnosis?: No VTE Prior VTE?: No VTE Risk Level:: Medical - moderate - high VTE Device Contraindication: Treatment Not Indicated VTE Drug Contraindication: N/A - Med Ordered
--- NOTE | 2025-06-12 18:22 | PHA.MEDREC ---
Addendum entered by Surinder Poole RPh 06/13/25 09:10: Called Monserrat (social work supervisor - [phone]), who gave us Lina's contact (RN - [phone]) to get an updated med list. Pharmacy has completed the medication reconciliation. Spoke with patient, and rock dust sprayer, Lina, to confirm meds. Pt could not name medications, but go answer questions while going through a med list. Utilize claims and conversation with RN to complete med rec. Original Note: Pharmacy Consult ? Medication Reconciliation Pharmacy has completed the medication reconciliation.Unable to complete med rec at this time. Patient does not know medications. Contacted Barber ( friend) who was listed and he also did not know medications but gave me his hospice nurse, Dianna, phone number( [phone]). Tried contacting this nurse but number went straight to voicemail. Will have AM med rec pharmacist/tech follow up in the am.
[2025-06-12] MEDS: Albuterol/Iprat 2.5/0.5MG 3 ML AMPUL.NEB INHALE (20:22)
[2025-06-12 22:07] LABS: Glucose, Whole Blood 159 mg/dL (60-115)
[2025-06-12] MEDS: fentaNYL 100 MCG PATCH.TD72 TRANSDERMA (22:31)
[2025-06-12 23:01] LABS: Glucose, Whole Blood 187 mg/dL (60-115)
[2025-06-13] VITALS (12 sets, daily range): BP systolic 96–157; BP diastolic 57–80; PULSE 67–160; RESP 14–22; TEMP 36.4–36.7; O2SAT 85–100; BMI 29.4
--- NOTE | 2025-06-13 | ECG_ITS ---
Test Reason : TACHY Blood Pressure : */* mmHG Vent. Rate : 120 BPM Atrial Rate : 144 BPM P-R Int : 216 ms QRS Dur : 84 ms QT Int : 326 ms P-R-T Axes : 63 -14 33 degrees QTcB Int : 460 ms Sinus tachycardia with 1st degree A-V block with Premature atrial complexes Septal infarct , age undetermined Abnormal ECG When compared with ECG of 12-Jun-2025 10:56, Septal infarct is now Present Referred By: Xu Avilez Electronically Signed By: MELLISA RICCI MD
[2025-06-13 04:23] LABS: MANUAL DIFF FLAG NO
[2025-06-13 04:26] LABS: Hematocrit 30.7 % (42.0-52.0); Hemoglobin 10.2 g/dl (14.0-18.0); Imm Gran Abs Auto 0.12 X10*3/uL (0.00-0.03); Imm Gran Pct Auto 2.0 % (0.0-0.4); Lymphocytes Absolute Auto 0.4 X10*3/uL (1.2-4.9); Mean Corpuscular HGB Conc 33.2 g/dl (31.0-36.0); Mean Corpuscular Hemoglobin 35.5 pg (27.0-33.0); Mean Corpuscular Volume 107.0 fL (80.0-98.0); NRBC Abs Auto 0.030 X10*3/uL (0.0-0.012); NRBC Pct Auto 0.5 /100WBC (0.0-0.2); Platelet Count 192 X10*3/uL (160-400); Red Blood Count 2.87 X10*6/uL (4.60-5.80); White Blood Count 6.2 X10*3/uL (4.8-10.8)
[2025-06-13 04:42] LABS: Anion Gap 15 (12-20); Blood Urea Nitrogen 21 mg/dL (9-16); Calcium 8.6 mg/dL (8.4-10.2); Carbon Dioxide 31 mmol/L (22-29); Chloride 97 mmol/L (96-108); Creatinine Clr Calc Pharmacy 69.8; Estimated Glomerular Filt Rate > 60; Potassium 4.7 mmol/L (3.3-5.1); Sodium 138 mmol/L (135-145)
--- NOTE | 2025-06-13 07:38 | PC.NURSE ---
This Rn assumed care of patient @ 0700 Patient on O2 3L O2 93% Patient c/o back pain rated 8/10 Patient on case monitor HR 107-124 Afib on eliquis Patient currently enjoying his breakfast Patient awaiting bed assignment
--- NOTE | 2025-06-13 08:34 | PHA.MEDREC ---
Pharmacy Consult ? Medication Reconciliation Pharmacy has completed the medication reconciliation. Spoke with patient to confirm meds. Pt could not name medications, but go answer questions while going through a med list. Utilize claims and patient conversation.
[2025-06-13 08:42] LABS: Glucose, Whole Blood 243 mg/dL (60-115)
[2025-06-13] MEDS: Albuterol/Iprat 2.5/0.5MG 3 ML AMPUL.NEB INHALE (08:46)
[2025-06-13 08:49] LABS: Chlamydia pneumoniae PCR Not Detected (Not Detect.); Coronavirus 229E PCR Not Detected (Not Detect.); Coronavirus HKU1 PCR Not Detected (Not Detect.); Coronavirus NL63 PCR Not Detected (Not Detect.); Coronavirus OC43 PCR Not Detected (Not Detect.); RSV PCR Not Detected (Not Detect.); Rhino/Enterovirus PCR Not Detected (Not Detect.)
[2025-06-13 08:59] LABS: Influenza A H1 PCR Not Detected (Not Detect.); Influenza A H1-2009 PCR Not Detected (Not Detect.); Influenza A H3 PCR Not Detected (Not Detect.); SARS-CoV-2 PCR Not Detected (Not Detect.)
[2025-06-13] MEDS: 0.9 % Sodium Chloride Flush 3 ML SYRINGE IVFLUSH ×3 (09:13→23:21)
--- NOTE | 2025-06-13 09:52 | MHC.CM.PN ---
CM met with Patient at bedside, in the ED, and addressed IMM with him, providing Patient with the original and a copy will be placed on the chart. Patient live alone in a house and was active with [facility]. Patient hopes to return home and resume hospice; CM has initiated and will follow for dc planning. PCP is Dr. Rivera and Friend/HCP/Barber will transport at dc.
--- NOTE | 2025-06-13 10:07 | PC.NURSE ---
Patients hospice nurse Donna Harry RN called wanting an update on patient Patient gave permission to speak with Donna Thompson would like to be notified when patient goes upstairs or in any changes occur [phone]
[2025-06-13] MEDS: oxyCODONE HCl Immed Release 5 MG TABLET 10 MG PO ×2 (10:14→22:45)
--- NOTE | 2025-06-13 10:16 | PC.NURSE ---
Patient c/o back pain rated 10/10 Patient wanted oxycodone as he takes that at home Notified Dr. Avilez Received new order for oxycodone 10 mg Administered per MAR Effectiveness pending Notified Provider of patients tachycardia, HR 117-145 Received new order for EKG
[2025-06-13] MEDS: Ipratropium Bromide 0.5 MG/2.5 ML SOLUTION INHALE ×2 (11:43→19:00)
[2025-06-13 13:24] LABS: Glucose, Whole Blood 180 mg/dL (60-115)
--- NOTE | 2025-06-13 13:35 | MHC.CM.PN ---
This ad writer spoke w/ Lazara from [facility]- @ this time the patient is going to revoke hospice services & received treatment during this admission. he does report wanting to resume hospice services upon d/c w/ [facility].
[2025-06-13 16:20] LABS: Glucose, Whole Blood 231 mg/dL (60-115)
--- NOTE | 2025-06-13 17:04 | P.PNIM_ITS ---
Subjective Subjective Date of Service: 06/13/25 Interval History: Patient seen and examined at bedside this morning, patient with improved breathing, however mentions that he is not feeling well, awaiting to have his oxycodone. On monitor with tachycardia, denies any chest pain. Review of Systems Review of Systems: Yes all other systems are reviewed and are negative Physical Exam 2 Exam: Exam: General: AxOx3, in no acute distress on supplemental oxygen Head: AT/NC ENT: dry mucous membranes Neck: supple CVS; increased RR, S1 S2 normal Lungs: coarse bilateral breath sounds Abd: Soft non tender, non distended Ext: No edema and no calf tenderness MSK: moving all 4 limbs Skin: No cyanosis or edema Psych: Cooperative with exam Neurology: no focal deficit Vital Signs: Vital Signs: Last Vital Signs Temp 97.9 F 06/13/25 15:09 Pulse 110 H 06/13/25 15:09 Resp 17 06/13/25 15:09 BP 110/65 06/13/25 15:09 Pulse Ox 96 06/13/25 15:09 O2 Del Method Nasal Cannula 06/13/25 15:09 O2 Flow Rate 3 06/13/25 15:09 Oxygen Flow Rate 2 06/12/25 10:35 BMI result Body Mass Index 29.4 Objective Data Active Medications Acetaminophen (Acetaminophen 325 Mg Tablet) 650 mg PO Q6H PRN PRN Reason: Pain, Mild 1-3,fever,headache Apixaban (Apixaban 5 Mg Tablet) 5 mg PO BID [facility] Last Admin: 06/13/25 09:13 Dose: 5 mg Documented By: SAW Azithromycin (Azithromycin 500 Mg Tablet) 500 mg PO DAILY [facility] Stop: 06/18/25 08:59 Last Admin: 06/13/25 09:13 Dose: 500 mg Documented By: SAW Benzonatate (Benzonatate 100 Mg Capsule) 100 mg PO TID PRN PRN Reason: Cough Calcium Carbonate (Calcium Carbonate 750 Mg Tab.Chew) 750 mg PO Q4H PRN PRN Reason: Heartburn Ceftriaxone Sodium (Ceftriaxone Sodium 1 Gm Vial) 1 gm IVPUSH Q24H [facility] Last Admin: 06/13/25 13:22 Dose: 1 gm Documented By: SAW Dextrose (Dextrose 50 % 25 Gm/50 Ml Syringe) 25 gm IVPUSH Q15M PRN; Protocol PRN Reason: per Hypoglycemia Standing Ord. Fentanyl (Fentanyl 100 Mcg Patch.Td72) 100 mcg TRANSDERMA Q3D [facility] Stop: 06/18/25 22:01 Last Admin: 06/12/25 22:31 Dose: 100 mcg Documented By: TAMARA Glucose (Glucose Gel 15 Gm Gel..Gram.) 15 gm PO Q15M PRN; Protocol PRN Reason: per Hypoglycemia Standing Ord. Influenza Virus Vaccine (Flu Vacc [id number](6mo Up)/Pf 0.5 Ml Syringe) 0.5 ml IM .ONCE ONE Stop: 06/14/25 09:01 Insulin Human Lispro (Insulin Lispro 100 Unit/Ml 3 Ml Vial) 0 unit SUBCUT QIDACHS [facility]; Protocol Last Admin: 06/13/25 16:27 Dose: 4 unit Documented By: SAW Ipratropium [place] (Ipratropium [place] 0.5 Mg/2.5 Ml Solution) 0.5 mg INHALE RQ6H [facility] Last Admin: 06/13/25 11:43 Dose: 0.5 mg Documented By: TAWANA Magnesium Hydroxide (Milk Of Magnesia 30 Ml Oral.Susp) 30 ml PO DAILY PRN PRN Reason: Constipation Melatonin (Melatonin 3 Mg Tablet) 6 mg PO BEDTIME PRN PRN Reason: Insomnia Methylprednisolone Sodium Succinate (Methylprednisolone Sod Succ 40 Mg/Ml Vial) 40 mg IVPUSH BID@0630,1630 [facility] Stop: 06/17/25 17:44 Last Admin: 06/13/25 16:27 Dose: 40 mg Documented By: SAW Morphine Sulfate (Morphine Sulfate Oral Nazia 10 Mg/5 Ml Solution) 10 mg PO Q4H PRN PRN Reason: Pain (Scale Score 4-6) Oxycodone HCl (Oxycodone Hcl Immed Release 5 Mg Tablet) 10 mg PO TID PRN PRN Reason: Pain, Moderate(Pain Scale 4-6) Last Admin: 06/13/25 10:14 Dose: 10 mg Documented By: SAW Pantoprazole Sodium (Pantoprazole Sodium 40 Mg/10 Ml Vial) 40 mg IVPUSH DAILY@0630 [facility] Last Admin: 06/13/25 06:26 Dose: 40 mg Documented By: TAMARA Sodium Chloride (0.9 % Sodium Chloride Flush 3 Ml Syringe) 3 ml IVFLUSH QSHIFT [facility] Last Admin: 06/13/25 16:28 Dose: 3 ml Documented By: NICHOLAS Labs 06/13/25 04:11 06/13/25 04:11 Labs: Laboratory Results - last 24 hr 06/12/25 06/12/25 06/13/25 22:04 22:56 03:25 MCV MCH MCHC RDW Plt Count MPV Immature Gran % (Auto) Neut % (Auto) Lymph % (Auto) [place] % (Auto) Eos % (Auto) Baso % (Auto) Lymph # (Auto) [place] # (Auto) Eos # (Auto) Baso # (Auto) Abs Immat Gran (auto) Absolute Neuts (auto) Absolute Nucleated RBC Nucleated RBC % (auto) Anion Gap Estim Creat Clear Calc Estimated GFR POC Glucose 159 H 187 H Random Glucose Calcium Respiratory Panel Campos See Note Adenovirus (Rapid PCR) Not Detected B.pert (TEM-PCR) Not Detected B.parapertussis DNA PCR Not Detected C. pneumoniae DNA (PCR) Not Detected Coronavirus OC43 (PCR) Not Detected Coronavirus HKU1 (PCR) Not Detected Coronavirus 229E (PCR) Not Detected Coronavirus NL63 (PCR) Not Detected Human Metapneumovir PCR Not Detected Influenza A (RT-PCR) Not Detected Influenza A (H1) PCR Not Detected Influ A (H1/09) PCR Not Detected Influenza A (H3) PCR Not Detected Influenza B (RT-PCR) Not Detected M. pneumoniae (PCR) Not Detected Parainfluenza 1 (PCR) Not Detected Parainfluenza 2 (PCR) Not Detected Parainfluenza 3 (PCR) Not Detected Parainfluenza 4 (PCR) Not Detected RSV (PCR) Not Detected Entero/Rhino (PCR) Not Detected SARS-CoV-2 RNA (RT-PCR) Not Detected 06/13/25 06/13/25 06/13/25 04:11 08:38 13:21 MCV 107.0 H MCH 35.5 H MCHC 33.2 RDW 15.5 Plt Count 192 MPV 10.6 Immature Gran % (Auto) 2.0 H Neut % (Auto) 87.9 H Lymph % (Auto) 6.8 L [place] % (Auto) 3.1 Eos % (Auto) 0.0 Baso % (Auto) 0.2 Lymph # (Auto) 0.4 L [place] # (Auto) 0.2 Eos # (Auto) 0.0 Baso # (Auto) 0.0 Abs Immat Gran (auto) 0.12 H Absolute Neuts (auto) 5.4 Absolute Nucleated RBC 0.030 H Nucleated RBC % (auto) 0.5 H Anion Gap 15 Estim Creat Clear Calc 69.8 Estimated GFR > 60 POC Glucose 243 H 180 H Random Glucose 215 H Calcium 8.6 Respiratory Panel Campos Adenovirus (Rapid PCR) B.pert (TEM-PCR) B.parapertussis DNA PCR C. pneumoniae DNA (PCR) Coronavirus OC43 (PCR) Coronavirus HKU1 (PCR) Coronavirus 229E (PCR) Coronavirus NL63 (PCR) Human Metapneumovir PCR Influenza A (RT-PCR) Influenza A (H1) PCR Influ A () PCR Influenza A (H3) PCR Influenza B (RT-PCR) M. pneumoniae (PCR) Parainfluenza 1 (PCR) Parainfluenza 2 (PCR) Parainfluenza 3 (PCR) Parainfluenza 4 (PCR) RSV (PCR) Entero/Rhino (PCR) SARS-CoV-2 RNA (RT-PCR) 06/13/25 16:15 MCV MCH MCHC RDW Plt Count MPV Immature Gran % (Auto) Neut % (Auto) Lymph % (Auto) [place] % (Auto) Eos % (Auto) Baso % (Auto) Lymph # (Auto) [place] # (Auto) Eos # (Auto) Baso # (Auto) Abs Immat Gran (auto) Absolute Neuts (auto) Absolute Nucleated RBC Nucleated RBC % (auto) Anion Gap Estim Creat Clear Calc Estimated GFR POC Glucose 231 H Random Glucose Calcium Respiratory Panel Campos Adenovirus (Rapid PCR) B.pert (TEM-PCR) B.parapertussis DNA PCR C. pneumoniae DNA (PCR) Coronavirus OC43 (PCR) Coronavirus HKU1 (PCR) Coronavirus 229E (PCR) Coronavirus NL63 (PCR) Human Metapneumovir PCR Influenza A (RT-PCR) Influenza A (H1) PCR Influ A () PCR Influenza A (H3) PCR Influenza B (RT-PCR) M. pneumoniae (PCR) Parainfluenza 1 (PCR) Parainfluenza 2 (PCR) Parainfluenza 3 (PCR) Parainfluenza 4 (PCR) RSV (PCR) Entero/Rhino (PCR) SARS-CoV-2 RNA (RT-PCR) Microbiology Microbiology Results: Microbiology 06/12/25 10:52 Blood Culture - Preliminary Blood - Venous No growth after 24 hours. 06/12/25 10:45 Blood Culture - Preliminary Blood - Venous No growth after 24 hours. Assessment and Plan (1) Chronic obstructive pulmonary disease, unspecified: Status: Acute (2) Atrial fibrillation with rapid ventricular response: Status: Acute Plan Assessment: 80-year-old male who presented to the hospital for worsening shortness of breath, found to be septic secondary to pneumonia. Sepsis, likely secondary to pneumonia, improved Pneumonia Acute hypoxic respiratory failure secondary to above, stable COPD -imaging reviewed, s/p sepsis bolus given -continue ceftriaxone and azithromycin -continue IV Solu-Medrol 40 mg q.6 hours -duo-nebs d/c will initiate ipratropium -monitor and titrate oxygen for SpO2 greater than 88% in the setting of COPD -incentive spirometer -given high-dose steroids, we will continue Protonix for GI PPX -insulin sliding scale while on high-dose steroids. Osteoarthritis with chronic back pain -we will continue with fentanyl patch as well as morphine, which is patient's usual treatment for his pain Anemia, suspect of chronic disease Monitor for any signs of bleeding, we will transfuse for hemoglobin less than 7 prior history of a-fib at this time w/ tachy -continue eliquis -EKG ordered, will consult Cardio -monitor for any Chest pain/palpitations FEN: not indicated, replete as needed, regular GI PPx: Protonix DVT PPx: Eliquis Code Status: Full code, patient under hospice care at home Quality Stroke Does the patient have a stroke diagnosis?: No VTE Prior VTE?: No VTE Risk Level:: Medical - moderate - high VTE Device Contraindication: Treatment Not Indicated VTE Drug Contraindication: N/A - Med Ordered
[2025-06-13 18:00] LABS: Hematocrit 28.7 % (42.0-52.0); Hemoglobin 9.7 g/dl (14.0-18.0); Mean Corpuscular HGB Conc 33.8 g/dl (31.0-36.0); Mean Corpuscular Hemoglobin 36.5 pg (27.0-33.0); Mean Corpuscular Volume 107.9 fL (80.0-98.0); NRBC Abs Auto 0.040 X10*3/uL (0.0-0.012); NRBC Pct Auto 0.4 /100WBC (0.0-0.2); Platelet Count 224 X10*3/uL (160-400); Red Blood Count 2.66 X10*6/uL (4.60-5.80); White Blood Count 9.1 X10*3/uL (4.8-10.8)
[2025-06-13 18:21] LABS: Alanine Aminotransferase 29 U/L (0-40); Albumin Level 3.5 g/dL (3.5-5.0); Alkaline Phosphatase 58 U/L (39-117); Anion Gap 14 (12-20); Aspartate Amino Transferase 18 U/L (5-37); Blood Urea Nitrogen 27 mg/dL (9-16); Calcium 8.8 mg/dL (8.4-10.2); Carbon Dioxide 33 mmol/L (22-29); Chloride 98 mmol/L (96-108); Creatinine Clr Calc Pharmacy 58.7; Estimated Glomerular Filt Rate 55; Magnesium 2.4 mg/dL (1.6-2.6); Potassium 4.8 mmol/L (3.3-5.1); Sodium 140 mmol/L (135-145); Total Protein 6.5 g/dL (6.5-8.0)
[2025-06-13 18:25] LABS: Troponin-I High Sensitivity 18.3 ng/L (<3.5-35.0)
--- NOTE | 2025-06-13 19:12 | PC.NURSE ---
assumed care of pt, pt doing breathing treatment, RT at bedside. respirations even and unlabored, curtain open to room.
[2025-06-13 21:18] LABS: Glucose, Whole Blood 203 mg/dL (60-115)
--- NOTE | 2025-06-13 21:20 | PC.NURSE ---
pt given 4 units of insulin per protocol, POC 203
[2025-06-14] VITALS (11 sets, daily range): BP systolic 110–141; BP diastolic 55–79; PULSE 61–88; RESP 18–24; TEMP 36.6–37.3; O2SAT 93–97
[2025-06-14] MEDS: Ipratropium Bromide 0.5 MG/2.5 ML SOLUTION INHALE ×4 (05:59→22:48)
[2025-06-14 06:08] LABS: MANUAL DIFF FLAG NO
[2025-06-14 06:15] LABS: Hematocrit 27.3 % (42.0-52.0); Hemoglobin 9.1 g/dl (14.0-18.0); Imm Gran Abs Auto 0.19 X10*3/uL (0.00-0.03); Imm Gran Pct Auto 2.0 % (0.0-0.4); Lymphocytes Absolute Auto 0.8 X10*3/uL (1.2-4.9); Mean Corpuscular HGB Conc 33.3 g/dl (31.0-36.0); Mean Corpuscular Hemoglobin 35.7 pg (27.0-33.0); Mean Corpuscular Volume 107.1 fL (80.0-98.0); NRBC Abs Auto 0.040 X10*3/uL (0.0-0.012); NRBC Pct Auto 0.4 /100WBC (0.0-0.2); Platelet Count 213 X10*3/uL (160-400); Red Blood Count 2.55 X10*6/uL (4.60-5.80); White Blood Count 9.6 X10*3/uL (4.8-10.8)
[2025-06-14 06:26] LABS: Anion Gap 16 (12-20); Blood Urea Nitrogen 29 mg/dL (9-16); Calcium 8.5 mg/dL (8.4-10.2); Carbon Dioxide 30 mmol/L (22-29); Chloride 97 mmol/L (96-108); Creatinine Clr Calc Pharmacy 67.8; Estimated Glomerular Filt Rate > 60; Potassium 4.7 mmol/L (3.3-5.1); Sodium 138 mmol/L (135-145)
[2025-06-14 07:47] LABS: Glucose, Whole Blood 163 mg/dL (60-115)
[2025-06-14] MEDS: 0.9 % Sodium Chloride Flush 3 ML SYRINGE IVFLUSH ×3 (08:18→22:25)
[2025-06-14] MEDS: oxyCODONE HCl Immed Release 5 MG TABLET 10 MG PO ×2 (08:22→18:03)
[2025-06-14] MEDS: buPROPion HCl XL 300 MG TAB.ER.24H PO (09:41)
[2025-06-14 11:41] LABS: Glucose, Whole Blood 186 mg/dL (60-115)
--- NOTE | 2025-06-14 11:48 | PM.CNCAR ---
History of Present Illness History of Present Illness Date of Service: 06/14/25 Requesting physician: Xu Avilez Consult reason: other (Atrial arrhythmias) Chief complaint: Acute hypoxic respiratory failure. Narrative: I was consulted to see at would in cardiology consultation today. Came with worsening shortness of breath and weakness and was admitted with COPD exacerbation related to pneumonia. Has underlying oxygen-dependent COPD at home on hospice care due to pain management. He said does not have any chronic life-threatening or terminal illness but thinks that the hospice care is the best way to get his narcotic regimen for treatment. Yesterday on presentation was noted to have frequent atrial arrhythmias with short bursts with heart rate up to 150. This is improved after management for his COPD exacerbation. Heart rate has remained in the 80s with PACs. He does have prior history of atrial fibrillation for which she is on oral anticoagulation therapy with Eliquis. He is also on metoprolol therapy at home. Review of Systems Constitutional: Constitutional: Denies chills, Denies fever(s), Reports lethargy, Reports malaise, Reports weakness and Denies weight gain Eyes: Eyes: Reports no additional eye complaints Cardiovascular: Cardiovascular: Denies chest pain, Denies rapid heart rate, Denies leg edema, Denies lightheadedness, Denies Loss of Consciousness, Reports dyspnea on exertion and Denies orthopnea Respiratory: Respiratory: Reports cough, Reports dyspnea on exertion and Denies wheezing Gastrointestinal: Gastrointestinal: Reports no additional gastrointestinal complaints Musculoskeletal: Musculoskeletal: Reports no additional musculoskeletal complaints Neurologic: Reports system reviewed and no additional complaints, except as documented and Reports weakness Psychiatric: Psychiatric: Reports no additional psychiatric complaints Allergic/Immunologic: Allergic/Immunologic: Denies wheezing PMFSH Past Medical History Medical History Atrial fibrillation with rapid ventricular response Chronic anemia Chronic back pain HLD (hyperlipidemia) Osteoarthritis BPH (benign prostatic hyperplasia) Skin lesion of back Chronic obstructive pulmonary disease, unspecified Diverticulosis of large intestine without perforation or abscess without bleeding 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 Family History Family History Mother Hypertension Father Hypertension Surgical History Surgical History History of excision of lesion (~04/17/23) History of repair of rotator cuff History of colon resection (~2001) Social History Social History Household Members: None Housing: House Do you presently have visiting nurse or other home services: Yes (shopping and cleaning) Alcohol intake: never Comment: pt refusing alarms Patient Tobacco Use Status: Former Tobacco user Tobacco use type: Cigarette Advance Directives Date on File: 03/29/24 service: No Current occupational status: employed and retired 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 /[employer] Meds Allergies Allergy/AdvReac Type Severity Reaction Status Date / Time No Known Allergies Allergy Mild NONE Verified 06/12/25 10:37 Active Medications: Current Medications Acetaminophen (Acetaminophen 325 Mg Tablet) 650 mg PO Q6H PRN PRN Reason: Pain, Mild 1-3,fever,headache Apixaban (Apixaban 5 Mg Tablet) 5 mg PO BID ON [facility] Last Admin: 06/14/25 08:16 Dose: 5 mg Apixaban (Apixaban 5 Mg Tablet) 5 mg PO BID ON [facility] Last Admin: 06/14/25 08:16 Dose: 5 mg Atorvastatin Calcium (Atorvastatin Calcium 10 Mg Tablet) 10 mg PO DAILY ON [facility] Last Admin: 06/14/25 08:16 Dose: 10 mg Azithromycin (Azithromycin 500 Mg Tablet) 500 mg PO DAILY [facility] Stop: 06/18/25 08:59 Last Admin: 06/14/25 08:16 Dose: 500 mg Benzonatate (Benzonatate 100 Mg Capsule) 100 mg PO TID PRN PRN Reason: Cough Bupropion HCl (Bupropion Hcl Xl 300 Mg Tab.Er.24h) 300 mg PO DAILY [facility] Last Admin: 06/14/25 09:41 Dose: 300 mg Calcium Carbonate (Calcium Carbonate 750 Mg Tab.Chew) 750 mg PO Q4H PRN PRN Reason: Heartburn Ceftriaxone Sodium (Ceftriaxone Sodium 1 Gm Vial) 1 gm IVPUSH Q24H [facility] Last Admin: 06/13/25 13:22 Dose: 1 gm Dextrose (Dextrose 50 % 25 Gm/50 Ml Syringe) 25 gm IVPUSH Q15M PRN; Protocol PRN Reason: per Hypoglycemia Standing Ord. Fentanyl (Fentanyl 100 Mcg Patch.Td72) 100 mcg TRANSDERMA Q3D [facility] Stop: 06/18/25 22:01 Last Admin: 06/12/25 22:31 Dose: 100 mcg Furosemide (Furosemide 20 Mg Tablet) 20 mg PO BID [facility]; Protocol Last Admin: 06/14/25 08:16 Dose: 20 mg Glucose (Glucose Gel 15 Gm Gel..Gram.) 15 gm PO Q15M PRN; Protocol PRN Reason: per Hypoglycemia Standing Ord. Insulin Human Lispro (Insulin Lispro 100 Unit/Ml 3 Ml Vial) 0 unit SUBCUT QIDACHS ON [facility]; Protocol Last Admin: 06/14/25 08:15 Dose: 1 unit Ipratropium [place] (Ipratropium [place] 0.5 Mg/2.5 Ml Solution) 0.5 mg INHALE RQ6H [facility] Last Admin: 06/14/25 11:11 Dose: 0.5 mg Magnesium Hydroxide (Milk Of Magnesia 30 Ml Oral.Susp) 30 ml PO DAILY PRN PRN Reason: Constipation Melatonin (Melatonin 3 Mg Tablet) 6 mg PO BEDTIME PRN PRN Reason: Insomnia Methylprednisolone Sodium Succinate (Methylprednisolone Sod Succ 40 Mg/Ml Vial) 40 mg IVPUSH BID@0630,1630 [facility] Stop: 06/17/25 17:44 Last Admin: 06/14/25 05:50 Dose: 40 mg Metoprolol Tartrate (Metoprolol Tartrate 50 Mg Tablet) 50 mg PO DAILY [facility]; Protocol Last Admin: 06/14/25 08:16 Dose: 50 mg Morphine Sulfate (Morphine Sulfate Oral Nazia 10 Mg/5 Ml Solution) 10 mg PO Q4H PRN PRN Reason: Pain (Scale Score 4-6) Multivitamins/Vitamin C (Multivitamin Tablet) 1 tab PO DAILY [facility] Last Admin: 06/14/25 08:15 Dose: 1 tab Non-Formulary Medication (Latanoprostene Bunod [Vyzulta]) 1 drop EYE-BOTH BEDTIME ON [facility] Oxycodone HCl (Oxycodone Hcl Immed Release 5 Mg Tablet) 10 mg PO TID PRN PRN Reason: Pain, Moderate(Pain Scale 4-6) Last Admin: 06/14/25 08:22 Dose: 10 mg Pantoprazole Sodium (Pantoprazole Sodium 40 Mg/10 Ml Vial) 40 mg IVPUSH DAILY@0630 [facility] Last Admin: 06/14/25 05:50 Dose: 40 mg Pregabalin (Pregabalin 150 Mg Capsule) 150 mg PO DAILY [facility] Last Admin: 06/14/25 08:16 Dose: 150 mg Pyridoxine HCl (Pyridoxine Hcl (Vitamin B6) 50 Mg Tablet) 50 mg PO DAILY [facility] Last Admin: 06/14/25 09:41 Dose: 50 mg Sodium Chloride (0.9 % Sodium Chloride Flush 3 Ml Syringe) 3 ml IVFLUSH QSHIFT ON [facility] Last Admin: 06/14/25 08:18 Dose: 3 ml Tamsulosin HCl (Tamsulosin Hcl 0.4 Mg Capsule) 0.4 mg PO BEDTIME ON [facility] Vitamin D (Cholecalciferol (Vitamin D3) 25 Mcg Tablet) 25 mcg PO DAILY ON [facility] Last Admin: 06/14/25 08:16 Dose: 25 mcg Home Medications ?Medication ?Instructions ?Recorded ?Confirmed ?Last Taken ?Type atorvastatin 10 mg tablet 10 mg PO DAILY 06/19/20 06/13/25 06/11/25 History cholecalciferol (vitamin D3) 25 25 mcg PO DAILY 10/17/23 06/13/25 06/11/25 History mcg (1,000 unit) tablet multivitamin 1 tab PO DAILY 10/17/23 06/13/25 06/11/25 History latanoprostene bunod 0.024 % eye 1 drp ophthalmic (eye) BEDTIME 01/07/24 06/13/25 06/11/25 History drops (Vyzulta) pyridoxine (vitamin B6) 50 mg 50 mg PO DAILY 01/07/24 06/13/25 06/11/25 History capsule (Vitamin B-6) bupropion HCl 150 mg tablet,12 hr 150 mg PO BID 11/30/24 06/13/25 06/11/25 History sustained-release tamsulosin 0.4 mg capsule 0.4 mg PO BEDTIME 11/30/24 06/13/25 06/11/25 History morphine concentrate 100 mg/5 mL 10 mg PO Q4H PRN Pain (Scale Score 06/12/25 06/12/25 06/11/25 History (20 mg/mL) oral solution 4-6) furosemide 20 mg tablet 20 mg PO BID 06/13/25 06/13/25 06/11/25 History metoprolol tartrate 50 mg tablet 50 mg PO DAILY 06/13/25 06/13/25 06/11/25 History oxycodone 10 mg tablet 10 mg PO BID PRN pain 06/13/25 06/13/25 06/11/25 History pregabalin 75 mg capsule 150 mg PO DAILY 06/13/25 06/13/25 06/11/25 History Physical Exam Vital Signs: Vital Signs: Last Vital Signs Temp 98.4 F 06/14/25 11:36 Pulse 68 06/14/25 11:36 Resp 20 06/14/25 11:36 BP 123/69 06/14/25 11:36 Pulse Ox 94 06/14/25 11:36 O2 Del Method Nasal Cannula 06/14/25 11:36 O2 Flow Rate 3 06/14/25 11:36 Oxygen Flow Rate 2 06/12/25 10:35 BMI result Body Mass Index 29.4 Const: General: cooperative, comfortable, alert, awake, in distress mild and respiratory and tired appearing Nutritional Appearance: overweight Orientation/consciousness: patient oriented x3 HEENT: Head: Yes normocephalic and Yes atraumatic Neck: Neck: Yes trachea midline, Yes supple and Yes no JVD Resp: Effort & Inspection: normal respiratory effort Auscultation: wheezes, diminished lung sounds and bronchovesicular breath sounds Cardio: Jugular venous distension: no JVD Rate: regular rate Rhythm: abnormal rhythm with ectopic beats Heart sounds: S1 normal heart sound present, S2 normal heart sound present, no click, no gallops, no murmurs and no rubs GI: Auscultation: normal bowel sounds Neuro: General: patient oriented x3 and no focal motor deficits Extrem: General: Yes no clubbing, cyanosis or edema Psych: Appearance: grossly normal Objective Labs and Meds 06/14/25 05:50 06/14/25 05:50 Lab results: Laboratory Results - last 24 hr 06/13/25 06/13/25 06/13/25 13:21 16:15 17:36 WBC 9.1 RBC 2.66 L Hgb 9.7 L Hct 28.7 L MCV 107.9 H MCH 36.5 H MCHC 33.8 RDW 15.7 Plt Count 224 MPV 10.9 Immature Gran % (Auto) Neut % (Auto) Lymph % (Auto) [place] % (Auto) Eos % (Auto) Baso % (Auto) Lymph # (Auto) [place] # (Auto) Eos # (Auto) Baso # (Auto) Abs Immat Gran (auto) Absolute Neuts (auto) Absolute Nucleated RBC 0.040 H Nucleated RBC % (auto) 0.4 H Sodium 140 Potassium 4.8 Chloride 98 Carbon Dioxide 33 H Anion Gap 14 BUN 27 H Creatinine 1.26 Estim Creat Clear Calc 58.7 Estimated GFR 55 POC Glucose 180 H 231 H Random Glucose 182 H Calcium 8.8 Magnesium 2.4 Total Bilirubin 0.3 AST 18 ALT 29 Alkaline Phosphatase 58 Total Creatine Kinase 60 Troponin I High Sens 18.3 Total Protein 6.5 Albumin 3.5 06/13/25 06/14/25 06/14/25 21:14 05:50 07:37 WBC 9.6 RBC 2.55 L Hgb 9.1 L Hct 27.3 L MCV 107.1 H MCH 35.7 H MCHC 33.3 RDW 15.8 Plt Count 213 MPV 10.8 Immature Gran % (Auto) 2.0 H Neut % (Auto) 84.5 H Lymph % (Auto) 8.4 L [place] % (Auto) 5.0 Eos % (Auto) 0.0 Baso % (Auto) 0.1 Lymph # (Auto) 0.8 L [place] # (Auto) 0.5 Eos # (Auto) 0.0 Baso # (Auto) 0.0 Abs Immat Gran (auto) 0.19 H Absolute Neuts (auto) 8.1 Absolute Nucleated RBC 0.040 H Nucleated RBC % (auto) 0.4 H Sodium 138 Potassium 4.7 Chloride 97 Carbon Dioxide 30 H Anion Gap 16 BUN 29 H Creatinine 1.09 Estim Creat Clear Calc 67.8 Estimated GFR > 60 POC Glucose 203 H 163 H Random Glucose 167 H Calcium 8.5 Magnesium Total Bilirubin AST ALT Alkaline Phosphatase Total Creatine Kinase Troponin I High Sens Total Protein Albumin 06/14/25 11:34 WBC RBC Hgb Hct MCV MCH MCHC RDW Plt Count MPV Immature Gran % (Auto) Neut % (Auto) Lymph % (Auto) [place] % (Auto) Eos % (Auto) Baso % (Auto) Lymph # (Auto) [place] # (Auto) Eos # (Auto) Baso # (Auto) Abs Immat Gran (auto) Absolute Neuts (auto) Absolute Nucleated RBC Nucleated RBC % (auto) Sodium Potassium Chloride Carbon Dioxide Anion Gap BUN Creatinine Estim Creat Clear Calc Estimated GFR POC Glucose 186 H Random Glucose Calcium Magnesium Total Bilirubin AST ALT Alkaline Phosphatase Total Creatine Kinase Troponin I High Sens Total Protein Albumin Assessment and Plan (1) Atrial arrhythmia: Status: Acute Patient presents with COPD exacerbation with acute hypoxemic respiratory failure which most likely causes atrial arrhythmias with short bursts of SVTs possibly atrial tachycardia. There was no evidence of atrial fibrillation yesterday as noted. Overnight has settled down with treatment of his COPD exacerbation. Continue aggressively to treat his COPD exacerbation. Switch to Xopenex for broncho dilators therapy. Also switch to Cardizem therapy for atrial arrhythmias instead of metoprolol which can affect pulmonary function. Already on Eliquis therapy for prior history of atrial fibrillation. Continue the same. No further cardiac recommendations at this point time. Will sign of the case. Thank you for allowing me to partake in his care Procedures Date of Service Date of Service: 06/14/25
--- NOTE | 2025-06-14 15:55 | HO.PM.IMPN ---
Subjective Subjective Date of Service: 06/14/25 Interval History: Patient seen and examined at bedside this morning, patient states that he is feeling better, however has not improved with his breathing. Xoperex and cardizem initiated. Review of Systems Review of Systems: Yes all other systems are reviewed and are negative Physical Exam Exam: Exam: General: AxOx3, in no acute distress on supplemental oxygen Head: AT/NC ENT: dry mucous membranes Neck: supple CVS; increased RR, S1 S2 normal Lungs: coarse bilateral breath sounds Abd: Soft non tender, non distended Ext: No edema and no calf tenderness MSK: moving all 4 limbs Skin: No cyanosis or edema Psych: Cooperative with exam Neurology: no focal deficit Vital Signs: Vital Signs: Last Vital Signs Temp 98.4 F 06/14/25 15:35 Pulse 72 06/14/25 15:35 Resp 20 06/14/25 15:35 BP 116/57 L 06/14/25 15:35 Pulse Ox 94 06/14/25 15:35 O2 Del Method Nasal Cannula 06/14/25 15:35 O2 Flow Rate 3 06/14/25 15:35 Oxygen Flow Rate 2 06/12/25 10:35 BMI result Body Mass Index 29.4 Objective Data Active Medications Acetaminophen (Acetaminophen 325 Mg Tablet) 650 mg PO Q6H PRN PRN Reason: Pain, Mild 1-3,fever,headache Apixaban (Apixaban 5 Mg Tablet) 5 mg PO BID [facility] Last Admin: 06/14/25 08:16 Dose: 5 mg Documented By: KAILEE Apixaban (Apixaban 5 Mg Tablet) 5 mg PO BID [facility] Last Admin: 06/14/25 08:16 Dose: 5 mg Documented By: KAILEE Atorvastatin Calcium (Atorvastatin Calcium 10 Mg Tablet) 10 mg PO DAILY [facility] Last Admin: 06/14/25 08:16 Dose: 10 mg Documented By: KAILEE Azithromycin (Azithromycin 500 Mg Tablet) 500 mg PO DAILY [facility] Stop: 06/18/25 08:59 Last Admin: 06/14/25 08:16 Dose: 500 mg Documented By: KAILEE Benzonatate (Benzonatate 100 Mg Capsule) 100 mg PO TID PRN PRN Reason: Cough Bupropion HCl (Bupropion Hcl Xl 300 Mg Tab.Er.24h) 300 mg PO DAILY [facility] Last Admin: 06/14/25 09:41 Dose: 300 mg Documented By: KAILEE Calcium Carbonate (Calcium Carbonate 750 Mg Tab.Chew) 750 mg PO Q4H PRN PRN Reason: Heartburn Ceftriaxone Sodium (Ceftriaxone Sodium 1 Gm Vial) 1 gm IVPUSH Q24H [facility] Last Admin: 06/14/25 12:08 Dose: 1 gm Documented By: KAILEE Dextrose (Dextrose 50 % 25 Gm/50 Ml Syringe) 25 gm IVPUSH Q15M PRN; Protocol PRN Reason: per Hypoglycemia Standing Ord. Diltiazem HCl (Diltiazem Hcl 30 Mg Tablet) 30 mg PO QID [facility]; Protocol Last Admin: 06/14/25 13:54 Dose: 30 mg Documented By: KAILEE Fentanyl (Fentanyl 100 Mcg Patch.Td72) 100 mcg TRANSDERMA Q3D [facility] Stop: 06/18/25 22:01 Last Admin: 06/12/25 22:31 Dose: 100 mcg Documented By: AMY-NORM Furosemide (Furosemide 20 Mg Tablet) 20 mg PO BID [facility]; Protocol Last Admin: 06/14/25 08:16 Dose: 20 mg Documented By: KAILEE Glucose (Glucose Gel 15 Gm Gel..Gram.) 15 gm PO Q15M PRN; Protocol PRN Reason: per Hypoglycemia Standing Ord. Insulin Human Lispro (Insulin Lispro 100 Unit/Ml 3 Ml Vial) 0 unit SUBCUT QIDACHS [facility]; Protocol Last Admin: 06/14/25 12:08 Dose: 2 unit Documented By: KAILEE Ipratropium [place] (Ipratropium [place] 0.5 Mg/2.5 Ml Solution) 0.5 mg INHALE RQ6H [facility] Last Admin: 06/14/25 11:11 Dose: 0.5 mg Documented By: MARY Levalbuterol HCl (Levalbuterol Hcl 1.25 Mg/3 Ml Vial.Neb) 1.25 mg INHALE Q4H PRN PRN Reason: Shortness of Breath Magnesium Hydroxide (Milk Of Magnesia 30 Ml Oral.Susp) 30 ml PO DAILY PRN PRN Reason: Constipation Melatonin (Melatonin 3 Mg Tablet) 6 mg PO BEDTIME PRN PRN Reason: Insomnia Methylprednisolone Sodium Succinate (Methylprednisolone Sod Succ 40 Mg/Ml Vial) 40 mg IVPUSH BID@0630,1630 [facility] Stop: 06/17/25 17:44 Last Admin: 06/14/25 05:50 Dose: 40 mg Documented By: ZOILA Morphine Sulfate (Morphine Sulfate Oral Nazia 10 Mg/5 Ml Solution) 10 mg PO Q4H PRN PRN Reason: Pain (Scale Score 4-6) Multivitamins/Vitamin C (Multivitamin Tablet) 1 tab PO DAILY [facility] Last Admin: 06/14/25 08:15 Dose: 1 tab Documented By: KAILEE Non-Formulary Medication (Latanoprostene Bunod [Vyzulta]) 1 drop EYE-BOTH BEDTIME [facility] Oxycodone HCl (Oxycodone Hcl Immed Release 5 Mg Tablet) 10 mg PO TID PRN PRN Reason: Pain, Moderate(Pain Scale 4-6) Last Admin: 06/14/25 08:22 Dose: 10 mg Documented By: KAILEE Pantoprazole Sodium (Pantoprazole Sodium 40 Mg/10 Ml Vial) 40 mg IVPUSH DAILY@0630 [facility] Last Admin: 06/14/25 05:50 Dose: 40 mg Documented By: ZOILA Pregabalin (Pregabalin 150 Mg Capsule) 150 mg PO DAILY [facility] Last Admin: 06/14/25 08:16 Dose: 150 mg Documented By: KAILEE Pyridoxine HCl (Pyridoxine Hcl (Vitamin B6) 50 Mg Tablet) 50 mg PO DAILY [facility] Last Admin: 06/14/25 09:41 Dose: 50 mg Documented By: KAILEE Sodium Chloride (0.9 % Sodium Chloride Flush 3 Ml Syringe) [facility] Last Admin: 06/14/25 08:18 Dose: 3 ml Documented By: KAILEE Tamsulosin HCl (Tamsulosin Hcl 0.4 Mg Capsule) 0.4 mg PO BEDTIME [facility] Vitamin D (Cholecalciferol (Vitamin D3) 25 Mcg Tablet) 25 mcg PO DAILY [facility] Last Admin: 06/14/25 08:16 Dose: 25 mcg Documented By: KAILEE Labs 06/14/25 05:50 06/14/25 05:50 Labs: Laboratory Results - last 24 hr 06/13/25 06/13/25 06/13/25 16:15 17:36 21:14 MCV 107.9 H MCH 36.5 H MCHC 33.8 RDW 15.7 Plt Count 224 MPV 10.9 Immature Gran % (Auto) Neut % (Auto) Lymph % (Auto) [facility] % (Auto) Eos % (Auto) Baso % (Auto) Lymph # (Auto) [facility] # (Auto) Eos # (Auto) Baso # (Auto) Abs Immat Gran (auto) Absolute Neuts (auto) Absolute Nucleated RBC 0.040 H Nucleated RBC % (auto) 0.4 H Anion Gap 14 Estim Creat Clear Calc 58.7 Estimated GFR 55 POC Glucose 231 H 203 H Random Glucose 182 H Calcium 8.8 Magnesium 2.4 Total Bilirubin 0.3 AST 18 ALT 29 Alkaline Phosphatase 58 Total Creatine Kinase 60 Troponin I High Sens 18.3 Total Protein 6.5 Albumin 3.5 06/14/25 06/14/25 06/14/25 05:50 07:37 11:34 MCV 107.1 H MCH 35.7 H MCHC 33.3 RDW 15.8 Plt Count 213 MPV 10.8 Immature Gran % (Auto) 2.0 H Neut % (Auto) 84.5 H Lymph % (Auto) 8.[address] [facility] % (Auto) 5.0 Eos % (Auto) 0.0 Baso % (Auto) 0.1 Lymph # (Auto) 0.[address] [facility] # (Auto) 0.5 Eos # (Auto) 0.0 Baso # (Auto) 0.0 Abs Immat Gran (auto) 0.19 H Absolute Neuts (auto) 8.1 Absolute Nucleated RBC 0.040 H Nucleated RBC % (auto) 0.4 H Anion Gap 16 Estim Creat Clear Calc 67.8 Estimated GFR > 60 POC Glucose 163 H 186 H Random Glucose 167 H Calcium 8.5 Magnesium Total Bilirubin AST ALT Alkaline Phosphatase Total Creatine Kinase Troponin I High Sens Total Protein Albumin Microbiology Microbiology Results: Microbiology 06/12/25 10:52 Blood Culture - Preliminary Blood - Venous No growth after 48 hours. 06/12/25 10:45 Blood Culture - Preliminary Blood - Venous No growth after 48 hours. Assessment and Plan (1) Chronic obstructive pulmonary disease, unspecified: Status: Acute (2) Atrial arrhythmia: Status: Acute (3) Acute hypoxic respiratory failure: Status: Acute Plan Assessment: 80-year-old male who presented to the hospital for worsening shortness of breath, found to be septic secondary to pneumonia. Sepsis, likely secondary to pneumonia, improving Pneumonia Acute hypoxic respiratory failure secondary to above, stable COPD -imaging reviewed, s/p sepsis bolus given -continue ceftriaxone and azithromycin -continue IV Solu-Medrol 40 mg q.6 hours -Xopenex initiated -monitor and titrate oxygen for SpO2 greater than 88% in the setting of COPD -incentive spirometer -given high-dose steroids, we will continue Protonix for GI PPX -insulin sliding scale while on high-dose steroids. Osteoarthritis with chronic back pain -we will continue with fentanyl patch as well as morphine, which is patient's usual treatment for his pain Anemia, suspect of chronic disease Monitor for any signs of bleeding, we will transfuse for hemoglobin less than 7 prior history of a-fib at this time w/ SVTs -continue eliquis -metoprolol d/c switched to cardizem per Cardio recs -monitor for any Chest pain/palpitations FEN: not indicated, replete as needed, regular GI PPx: Protonix DVT PPx: Eliquis Code Status: Full code, patient under hospice care at home to [facility] with his pain Quality Stroke Does the patient have a stroke diagnosis?: No VTE Prior VTE?: No VTE Risk Level:: Medical - moderate - high VTE Device Contraindication: Treatment Not Indicated VTE Drug Contraindication: N/A - Med Ordered
[2025-06-14 16:21] LABS: Glucose, Whole Blood 163 mg/dL (60-115)
[2025-06-14 20:50] LABS: Glucose, Whole Blood 230 mg/dL (60-115)
[2025-06-15] VITALS (9 sets, daily range): BP systolic 117–158; BP diastolic 56–87; PULSE 66–102; RESP 15–20; TEMP 36.5–37.2; O2SAT 92–96
--- NOTE | 2025-06-15 | ECG_ITS ---
Test Reason : chest pressure Blood Pressure : */* mmHG Vent. Rate : 94 BPM Atrial Rate : 94 BPM P-R Int : 178 ms QRS Dur : 80 ms QT Int : 342 ms P-R-T Axes : 74 10 33 degrees QTcB Int : 427 ms Sinus rhythm with Premature atrial complexes Otherwise normal ECG When compared with ECG of 13-Jun-2025 10:13, DE interval has decreased Criteria for Septal infarct are no longer Present Referred By: Justin Tom Electronically Signed By: MELLISA RICCI MD
[2025-06-15] MEDS: oxyCODONE HCl Immed Release 5 MG TABLET 10 MG PO ×3 (00:36→21:37)
[2025-06-15] MEDS: Ipratropium Bromide 0.5 MG/2.5 ML SOLUTION INHALE ×2 (05:53→11:25)
[2025-06-15 07:37] LABS: MANUAL DIFF FLAG NO
[2025-06-15 07:44] LABS: Hematocrit 27.1 % (42.0-52.0); Hemoglobin 9.0 g/dl (14.0-18.0); Imm Gran Abs Auto 0.41 X10*3/uL (0.00-0.03); Imm Gran Pct Auto 4.3 % (0.0-0.4); Lymphocytes Absolute Auto 0.8 X10*3/uL (1.2-4.9); Mean Corpuscular HGB Conc 33.2 g/dl (31.0-36.0); Mean Corpuscular Hemoglobin 35.3 pg (27.0-33.0); Mean Corpuscular Volume 106.3 fL (80.0-98.0); NRBC Abs Auto 0.060 X10*3/uL (0.0-0.012); NRBC Pct Auto 0.6 /100WBC (0.0-0.2); Platelet Count 206 X10*3/uL (160-400); Red Blood Count 2.55 X10*6/uL (4.60-5.80); White Blood Count 9.6 X10*3/uL (4.8-10.8)
[2025-06-15 07:56] LABS: Glucose, Whole Blood 156 mg/dL (60-115)
[2025-06-15 07:57] LABS: Anion Gap 13 (12-20); Blood Urea Nitrogen 31 mg/dL (9-16); Calcium 8.5 mg/dL (8.4-10.2); Carbon Dioxide 34 mmol/L (22-29); Chloride 97 mmol/L (96-108); Creatinine Clr Calc Pharmacy 71.0; Estimated Glomerular Filt Rate > 60; Potassium 4.9 mmol/L (3.3-5.1); Sodium 139 mmol/L (135-145)
[2025-06-15] MEDS: 0.9 % Sodium Chloride Flush 3 ML SYRINGE IVFLUSH ×3 (08:10→21:14)
[2025-06-15] MEDS: buPROPion HCl XL 300 MG TAB.ER.24H PO (08:10)
[2025-06-15 11:21] LABS: Glucose, Whole Blood 258 mg/dL (60-115)
--- NOTE | 2025-06-15 14:48 | P.PNIM_ITS ---
Subjective Subjective Date of Service: 06/15/25 Interval History: cough improved HR improved, in 90s Review of Systems Review of Systems: Yes all other systems are reviewed and are negative Physical Exam 2 Vital Signs: Vital Signs: Last Vital Signs Temp 97.7 F 06/15/25 11:24 Pulse 90 06/15/25 11:27 Resp 18 06/15/25 11:27 BP 138/65 06/15/25 11:24 Pulse Ox 92 06/15/25 11:24 O2 Del Method Nasal Cannula 06/15/25 11:24 O2 Flow Rate 2.5 06/15/25 11:24 Oxygen Flow Rate 2 06/12/25 10:35 BMI result Body Mass Index 29.4 Gen: in no acute distress HEENT: sclera anicteric, moist mucus membranes Neck: supple Lungs: R-sided crackles Heart: regular, no murmurs Abd: soft, non-tender, non-distended Ext: no edema Skin: warm/well-perfused Neuro: alert and oriented x3, no focal findings Psych: appropriate affect Objective Data Active Medications Acetaminophen (Acetaminophen 325 Mg Tablet) 650 mg PO Q6H PRN PRN Reason: Pain, Mild 1-3,fever,headache Apixaban (Apixaban 5 Mg Tablet) 5 mg PO BID [facility] Last Admin: 06/15/25 08:09 Dose: 5 mg Documented By: KAILEE Atorvastatin Calcium (Atorvastatin Calcium 10 Mg Tablet) 10 mg PO DAILY [facility] Last Admin: 06/15/25 08:08 Dose: 10 mg Documented By: KAILEE Azithromycin (Azithromycin 500 Mg Tablet) 500 mg PO DAILY [facility] Stop: 06/18/25 08:59 Last Admin: 06/15/25 08:08 Dose: 500 mg Documented By: KAILEE Benzonatate (Benzonatate 100 Mg Capsule) 100 mg PO TID PRN PRN Reason: Cough Bupropion HCl (Bupropion Hcl Xl 300 Mg Tab.Er.24h) 300 mg PO DAILY [facility] Last Admin: 06/15/25 08:10 Dose: 300 mg Documented By: KAILEE Calcium Carbonate (Calcium Carbonate 750 Mg Tab.Chew) 750 mg PO Q4H PRN PRN Reason: Heartburn Ceftriaxone Sodium (Ceftriaxone Sodium 1 Gm Vial) 1 gm IVPUSH Q24H [facility] Last Admin: 06/15/25 12:07 Dose: 1 gm Documented By: KAILEE Dextrose (Dextrose 50 % 25 Gm/50 Ml Syringe) 25 gm IVPUSH Q15M PRN; Protocol PRN Reason: per Hypoglycemia Standing Ord. Diltiazem HCl (Diltiazem Hcl 30 Mg Tablet) 30 mg PO QID [facility]; Protocol Last Admin: 06/15/25 12:07 Dose: 30 mg Documented By: KAILEE Fentanyl (Fentanyl 100 Mcg Patch.Td72) 100 mcg TRANSDERMA Q3D [facility] Stop: 06/18/25 22:01 Last Admin: 06/12/25 22:31 Dose: 100 mcg Documented By: AMY-NORM Furosemide (Furosemide 20 Mg Tablet) 20 mg PO BID [facility]; Protocol Last Admin: 06/15/25 08:10 Dose: 20 mg Documented By: KAILEE Glucose (Glucose Gel 15 Gm Gel..Gram.) 15 gm PO Q15M PRN; Protocol PRN Reason: per Hypoglycemia Standing Ord. Insulin Human Lispro (Insulin Lispro 100 Unit/Ml 3 Ml Vial) 0 unit SUBCUT QIDACHS [facility]; Protocol Last Admin: 06/15/25 12:06 Dose: 6 unit Documented By: KAILEE Ipratropium [place] (Ipratropium [place] 0.5 Mg/2.5 Ml Solution) 0.5 mg INHALE RQ6H [facility] Last Admin: 06/15/25 11:25 Dose: 0.5 mg Documented By: PATRICIA Levalbuterol HCl (Levalbuterol Hcl 1.25 Mg/3 Ml Vial.Neb) 1.25 mg INHALE Q4H PRN PRN Reason: Shortness of Breath Magnesium Hydroxide (Milk Of Magnesia 30 Ml Oral.Susp) 30 ml PO DAILY PRN PRN Reason: Constipation Melatonin (Melatonin 3 Mg Tablet) 6 mg PO BEDTIME PRN PRN Reason: Insomnia Methylprednisolone Sodium Succinate (Methylprednisolone Sod Succ 40 Mg/Ml Vial) 40 mg IVPUSH BID@0630,1630 [facility] Stop: 06/17/25 17:44 Last Admin: 06/15/25 06:44 Dose: 40 mg Documented By: ZOILA Morphine Sulfate (Morphine Sulfate Oral Nazia 10 Mg/5 Ml Solution) 10 mg PO Q4H PRN PRN Reason: Pain (Scale Score 4-6) Multivitamins/Vitamin C (Multivitamin Tablet) 1 tab PO DAILY [facility] Last Admin: 06/15/25 08:10 Dose: 1 tab Documented By: KAILEE Non-Formulary Medication (Latanoprostene Bunod [Vyzulta]) 1 drop EYE-BOTH BEDTIME [facility] Oxycodone HCl (Oxycodone Hcl Immed Release 5 Mg Tablet) 10 mg PO TID PRN PRN Reason: Pain, Moderate(Pain Scale 4-6) Last Admin: 06/15/25 08:09 Dose: 10 mg Documented By: KAILEE Pantoprazole Sodium (Pantoprazole Sodium 40 Mg/10 Ml Vial) 40 mg IVPUSH DAILY@0630 [facility] Last Admin: 06/15/25 06:44 Dose: 40 mg Documented By: ZOILA Pregabalin (Pregabalin 150 Mg Capsule) 150 mg PO DAILY [facility] Last Admin: 06/15/25 08:08 Dose: 150 mg Documented By: KAILEE Pyridoxine HCl (Pyridoxine Hcl (Vitamin B6) 50 Mg Tablet) 50 mg PO DAILY [facility] Last Admin: 06/15/25 08:08 Dose: 50 mg Documented By: KAILEE Sodium Chloride (0.9 % Sodium Chloride Flush 3 Ml Syringe) 3 ml IVFLUSH [facility] Last Admin: 06/15/25 08:10 Dose: 3 ml Documented By: KAILEE Tamsulosin HCl (Tamsulosin Hcl 0.4 Mg Capsule) 0.4 mg PO BEDTIME [facility] Last Admin: 06/14/25 22:23 Dose: 0.4 mg Documented By: ZOILA Vitamin D (Cholecalciferol (Vitamin D3) 25 Mcg Tablet) 25 mcg PO DAILY [facility] Last Admin: 06/15/25 08:08 Dose: 25 mcg Documented By: KAILEE Labs 06/15/25 07:01 06/15/25 07:01 Labs: Laboratory Results - last 24 hr 06/14/25 06/14/25 06/15/25 16:16 20:43 07:01 MCV 106.3 H MCH 35.3 H MCHC 33.2 RDW 15.6 Plt Count 206 MPV 10.6 Immature Gran % (Auto) 4.3 H Neut % (Auto) 82.2 H Lymph % (Auto) 8.7 L [place] % (Auto) 4.7 Eos % (Auto) 0.0 Baso % (Auto) 0.1 Lymph # (Auto) 0.8 L [place] # (Auto) 0.5 Eos # (Auto) 0.0 Baso # (Auto) 0.0 Abs Immat Gran (auto) 0.41 H Absolute Neuts (auto) 7.9 Absolute Nucleated RBC 0.060 H Nucleated RBC % (auto) 0.6 H Anion Gap 13 Estim Creat Clear Calc 71.0 Estimated GFR > 60 POC Glucose 163 H 230 H Random Glucose 157 H Calcium 8.5 06/15/25 06/15/25 07:25 10:49 MCV MCH MCHC RDW Plt Count MPV Immature Gran % (Auto) Neut % (Auto) Lymph % (Auto) [place] % (Auto) Eos % (Auto) Baso % (Auto) Lymph # (Auto) [place] # (Auto) Eos # (Auto) Baso # (Auto) Abs Immat Gran (auto) Absolute Neuts (auto) Absolute Nucleated RBC Nucleated RBC % (auto) Anion Gap Estim Creat Clear Calc Estimated GFR POC Glucose 156 H 258 H Random Glucose Calcium Microbiology Microbiology Results: Microbiology 06/12/25 10:52 Blood Culture - Preliminary Blood - Venous No growth after 48 hours. 06/12/25 10:45 Blood Culture - Preliminary Blood - Venous No growth after 48 hours. Assessment and Plan (1) Chronic obstructive pulmonary disease, unspecified: Status: Acute (2) Atrial arrhythmia: Status: Acute (3) Acute hypoxic respiratory failure: Status: Acute Plan d4, 80yo M with hx spontaneous pneumothorax, COPD on 3-4 L of oxygen, HLD, BPH, chronic back pain on fentanyl patch and liquid morphine, arthritis, hx OUD who was home hospice but came in to the hospital and was admitted for sepsis from pneumonia acute/chronic hypoxic respiratory failure and sepsis due to PNA: continue ceftriaxone + azithromycin 06/13, blood cultures negative, wean O2 as tolerated COPD exacerbation: continue methlyprednisolone, levalbuterol atrial arrhythmias: short bursts of SVTs, possibly atrial tachycardia per Cardiology; switched albuterol to levalbuterol and switched metoprolol to diltiazem; change to 24-hour controlled release chronic pain: fentanyl patch + liquid morphine, pregabalin hx AF: apixaban, diltiazem mood disorder: bupropion VTE ppx: apixaban dispo: eventual home to resume hospice In my clinical judgment, the patient requires continued inpatient hospitalization for the following reasons: hypoxia, IV ABX, atrial arrhythmia Total time managing care of this patient today: 35 minutes. Quality Stroke Does the patient have a stroke diagnosis?: No VTE Prior VTE?: No VTE Risk Level:: Medical - moderate - high VTE Device Contraindication: Treatment Not Indicated VTE Drug Contraindication: N/A - Med Ordered
--- NOTE | 2025-06-15 15:06 | PC.NURSE ---
at 1448 the pt began c/o chest pressure and nausea. VS as follows bp 134/78 p 83, rr 20, 02 sat 94% on 4L. MD notified, EKG obtained. Lab and Xray at bedside. pt reports a slight improvement in the nausea. will continue to monitor.
[2025-06-15 15:30] LABS: Troponin-I High Sensitivity 9.2 ng/L (<3.5-35.0)
[2025-06-15] MEDS: dilTIAZem HCL CD 120 MG CAP.ER.DEG PO (15:56)
[2025-06-15 16:32] LABS: Glucose, Whole Blood 197 mg/dL (60-115)
--- NOTE | 2025-06-15 18:32 | PC.NURSE ---
Pt reports chest pressure has resolved but nausea has persisted, pt medicated with PRN zofran. will continue to monitor.
[2025-06-15 20:42] LABS: Glucose, Whole Blood 186 mg/dL (60-115)
[2025-06-15] MEDS: fentaNYL 100 MCG PATCH.TD72 TRANSDERMA (21:17)
[2025-06-16] VITALS (10 sets, daily range): BP systolic 128–145; BP diastolic 66–84; PULSE 74–154; RESP 17–19; TEMP 36.3–36.8; O2SAT 88–95
[2025-06-16 07:48] LABS: Glucose, Whole Blood 185 mg/dL (60-115)
[2025-06-16] MEDS: buPROPion HCl XL 300 MG TAB.ER.24H PO (08:12)
[2025-06-16] MEDS: oxyCODONE HCl Immed Release 5 MG TABLET 10 MG PO ×2 (08:12→22:18)
[2025-06-16] MEDS: dilTIAZem HCL CD 120 MG CAP.ER.DEG PO (08:13)
[2025-06-16] MEDS: 0.9 % Sodium Chloride Flush 3 ML SYRINGE IVFLUSH ×3 (08:15→20:08)
--- NOTE | 2025-06-16 09:46 | MHC.CM.PN ---
CM RECEIVED MESSAGE FROM [facility], PT WILL BE SEEN FIR GOALS OF CARE DISCUSSION TO DETERMINE THIS IS PT'S SECOND REVOCATION OF HOSPICE FOR [place], CM WILL CONT TO FOLLOW.
--- NOTE | 2025-06-16 09:50 | HO.PM.IMPN ---
Subjective Subjective Date of Service: 06/16/25 Interval History: burst of SVT overnight; now NSR cough improving nausea and chest pain resolved Review of Systems Review of Systems: Yes all other systems are reviewed and are negative Physical Exam Vital Signs: Vital Signs: Last Vital Signs Temp 97.8 F 06/16/25 07:51 Pulse 94 06/16/25 07:51 Resp 19 06/16/25 07:51 BP 128/84 06/16/25 07:51 Pulse Ox 90 L 06/16/25 07:51 O2 Del Method Nasal Cannula 06/16/25 07:51 O2 Flow Rate 1.5 06/16/25 07:51 Oxygen Flow Rate 2 06/12/25 10:35 BMI result Body Mass Index 29.4 Gen: in no acute distress HEENT: sclera anicteric, moist mucus membranes Neck: supple Lungs: R-sided crackles Heart: regular, no murmurs Abd: soft, non-tender, non-distended Ext: no edema Skin: warm/well-perfused Neuro: alert and oriented x3, no focal findings Psych: appropriate affect Objective Data Active Medications Acetaminophen (Acetaminophen 325 Mg Tablet) 650 mg PO Q6H PRN PRN Reason: Pain, Mild 1-3,fever,headache Apixaban (Apixaban 5 Mg Tablet) 5 mg PO BID [facility] Last Admin: 06/16/25 08:13 Dose: 5 mg Documented By: JAY Atorvastatin Calcium (Atorvastatin Calcium 10 Mg Tablet) 10 mg PO DAILY [facility] Last Admin: 06/16/25 08:12 Dose: 10 mg Documented By: JAY Azithromycin (Azithromycin 500 Mg Tablet) 500 mg PO DAILY [facility] Stop: 06/18/25 08:59 Last Admin: 06/16/25 08:13 Dose: 500 mg Documented By: JAY Benzonatate (Benzonatate 100 Mg Capsule) 100 mg PO TID PRN PRN Reason: Cough Bupropion HCl (Bupropion Hcl Xl 300 Mg Tab.Er.24h) 300 mg PO DAILY [facility] Last Admin: 06/16/25 08:12 Dose: 300 mg Documented By: JAY Calcium Carbonate (Calcium Carbonate 750 Mg Tab.Chew) 750 mg PO Q4H PRN PRN Reason: Heartburn Ceftriaxone Sodium (Ceftriaxone Sodium 1 Gm Vial) 1 gm IVPUSH Q24H [facility] Last Admin: 06/15/25 12:07 Dose: 1 gm Documented By: KAILEE Dextrose (Dextrose 50 % 25 Gm/50 Ml Syringe) 25 gm IVPUSH Q15M PRN; Protocol PRN Reason: per Hypoglycemia Standing Ord. Diltiazem HCl (Diltiazem Hcl Cd 180 Mg Cap.Er.24h) 180 mg PO DAILY [facility]; Protocol Fentanyl (Fentanyl 100 Mcg Patch.Td72) 100 mcg TRANSDERMA Q3D [facility] Stop: 06/18/25 22:01 Last Admin: 06/15/25 21:17 Dose: 100 mcg Documented By: ZOILA Furosemide (Furosemide 20 Mg Tablet) 20 mg PO BID [facility]; Protocol Last Admin: 06/16/25 08:13 Dose: 20 mg Documented By: JAY Glucose (Glucose Gel 15 Gm Gel..Gram.) 15 gm PO Q15M PRN; Protocol PRN Reason: per Hypoglycemia Standing Ord. Insulin Human Lispro (Insulin Lispro 100 Unit/Ml 3 Ml Vial) 0 unit SUBCUT QIDACHS [facility]; Protocol Last Admin: 06/16/25 08:15 Dose: 2 unit Documented By: JAY Ipratropium [place] (Ipratropium [place] 0.5 Mg/2.5 Ml Solution) 0.5 mg INHALE RQ6H [facility] Last Admin: 06/16/25 06:30 Dose: Not Given Documented By: KARI Non-Admin Reason: Patient Refused Levalbuterol HCl (Levalbuterol Hcl 1.25 Mg/3 Ml Vial.Neb) 1.25 mg INHALE Q4H PRN PRN Reason: Shortness of Breath Magnesium Hydroxide (Milk Of Magnesia 30 Ml Oral.Susp) 30 ml PO DAILY PRN PRN Reason: Constipation Melatonin (Melatonin 3 Mg Tablet) 6 mg PO BEDTIME PRN PRN Reason: Insomnia Morphine Sulfate (Morphine Sulfate Oral Nazia 10 Mg/5 Ml Solution) 10 mg PO Q4H PRN PRN Reason: Pain (Scale Score 4-6) Multivitamins/Vitamin C (Multivitamin Tablet) 1 tab PO DAILY [facility] Last Admin: 06/16/25 08:12 Dose: 1 tab Documented By: JAY Non-Formulary Medication (Latanoprostene Bunod [Vyzulta]) 1 drop EYE-BOTH BEDTIME [facility] Ondansetron HCl (Ondansetron Hcl 4 Mg/2 Ml Vial) 4 mg IVPUSH Q4H PRN PRN Reason: Nausea and Vomiting Last Admin: 06/15/25 17:49 Dose: 4 mg Documented By: KAILEE Oxycodone HCl (Oxycodone Hcl Immed Release 5 Mg Tablet) 10 mg PO TID PRN PRN Reason: Pain, Moderate(Pain Scale 4-6) Last Admin: 06/16/25 08:12 Dose: 10 mg Documented By: JAY Prednisone (Prednisone 20 Mg Tablet) 40 mg PO DAILY [facility] Last Admin: 06/16/25 08:14 Dose: 40 mg Documented By: JAY Pregabalin (Pregabalin 150 Mg Capsule) 150 mg PO DAILY [facility] Last Admin: 06/16/25 08:12 Dose: 150 mg Documented By: JAY Pyridoxine HCl (Pyridoxine Hcl (Vitamin B6) 50 Mg Tablet) 50 mg PO DAILY [facility] Last Admin: 06/16/25 08:12 Dose: 50 mg Documented By: JAY Sodium Chloride (0.9 % Sodium Chloride Flush 3 Ml Syringe) 3 ml IVFLUSH QSHIFT [facility] Last Admin: 06/16/25 08:15 Dose: 3 ml Documented By: JAY Tamsulosin HCl (Tamsulosin Hcl 0.4 Mg Capsule) 0.4 mg PO BEDTIME [facility] Last Admin: 06/15/25 21:13 Dose: 0.4 mg Documented By: ZOILA Vitamin D (Cholecalciferol (Vitamin D3) 25 Mcg Tablet) 25 mcg PO DAILY [facility] Last Admin: 06/16/25 08:12 Dose: 25 mcg Documented By: JAY Labs 06/15/25 07:01 06/15/25 07:01 Labs: Laboratory Results - last 24 hr 06/15/25 06/15/25 06/15/25 10:49 15:03 15:03 POC Glucose 258 H Troponin I High Sens 9.2 Cancelled 06/15/25 06/15/25 06/16/25 16:25 20:39 07:43 POC Glucose 197 H 186 H 185 H Troponin I High Sens Assessment and Plan (1) Chronic obstructive pulmonary disease, unspecified: Status: Acute (2) Atrial arrhythmia: Status: Acute (3) Acute hypoxic respiratory failure: Status: Acute Plan d5, 80yo M with hx spontaneous pneumothorax, COPD on 3-4 L of oxygen, HLD, BPH, chronic back pain on fentanyl patch and liquid morphine, arthritis, hx OUD who was home hospice but came in to the hospital and was admitted for sepsis from pneumonia acute/chronic hypoxic respiratory failure and sepsis due to PNA: continue ceftriaxone + azithromycin 06/13, blood cultures negative, wean O2 as tolerated COPD exacerbation: change methylprednisolone to prednisone, continue levalbuterol atrial arrhythmias: short bursts of SVTs, possibly atrial tachycardia per Cardiology; switched albuterol to levalbuterol and switched metoprolol to diltiazem; change to 24-hour controlled release; increase from 120 to 180 mg/d chronic pain: fentanyl patch + liquid morphine, pregabalin hx AF: apixaban, diltiazem mood disorder: bupropion VTE ppx: apixaban dispo: eventual home to resume hospice In my clinical judgment, the patient requires continued inpatient hospitalization for the following reasons: hypoxia, IV ABX, atrial arrhythmia Total time managing care of this patient today: 35 minutes. Quality Stroke Does the patient have a stroke diagnosis?: No VTE Prior VTE?: No VTE Risk Level:: Medical - moderate - high VTE Device Contraindication: Treatment Not Indicated VTE Drug Contraindication: N/A - Med Ordered
[2025-06-16 11:27] LABS: Glucose, Whole Blood 209 mg/dL (60-115)
[2025-06-16] MEDS: Ipratropium Bromide 0.5 MG/2.5 ML SOLUTION INHALE ×2 (11:34→18:57)
--- NOTE | 2025-06-16 14:38 | ECG_ITS ---
Test Reason : CP Blood Pressure : */* mmHG Vent. Rate : 122 BPM Atrial Rate : * BPM P-R Int : * ms QRS Dur : 80 ms QT Int : 322 ms P-R-T Axes : * 156 135 degrees QTcB Int : 458 ms Normal sinus rhythm with frequent Premature atrial complexes Right axis deviation Possible Right ventricular hypertrophy Abnormal ECG When compared with ECG of 15-Jun-2025 14:50, No significant changes seen QRS axis Shifted right T wave inversion now evident in Lateral leads Referred By: Justin Tom Electronically Signed By: MELLISA RICCI MD
[2025-06-16] MEDS: Magnesium Hydrox/Alum Hydrox 30 ML ORAL.SUSP PO (15:09)
--- NOTE | 2025-06-16 15:16 | PC.NURSE ---
Patient c/o right intermittent chest pain, dull and sharp at times. c/o mild heartburn starting. EKG done - afib rvr 120s. MD notified. BP:128/60, HR 90. MD order to administer maalox and prn zofran.
[2025-06-16 16:13] LABS: Glucose, Whole Blood 373 mg/dL (60-115)
[2025-06-16 19:28] LABS: Glucose, Whole Blood 290 mg/dL (60-115)
[2025-06-17] VITALS (12 sets, daily range): BP systolic 113–145; BP diastolic 63–85; PULSE 75–145; RESP 18–24; TEMP 36.3–37.1; O2SAT 37–97
[2025-06-17 07:37] LABS: Glucose, Whole Blood 150 mg/dL (60-115)
[2025-06-17] MEDS: 0.9 % Sodium Chloride Flush 3 ML SYRINGE IVFLUSH ×3 (08:41→20:00)
[2025-06-17] MEDS: dilTIAZem HCL CD 180 MG CAP.ER.24H PO (08:43)
[2025-06-17] MEDS: buPROPion HCl XL 300 MG TAB.ER.24H PO (08:43)
[2025-06-17] MEDS: oxyCODONE HCl Immed Release 5 MG TABLET 10 MG PO ×2 (08:44→23:25)
[2025-06-17 10:38] LABS: Hematocrit 27.4 % (42.0-52.0); Hemoglobin 9.0 g/dl (14.0-18.0); Mean Corpuscular HGB Conc 32.8 g/dl (31.0-36.0); Mean Corpuscular Hemoglobin 36.0 pg (27.0-33.0); Mean Corpuscular Volume 109.6 fL (80.0-98.0); NRBC Abs Auto 0.270 X10*3/uL (0.0-0.012); Platelet Count 201 X10*3/uL (160-400); Red Blood Count 2.50 X10*6/uL (4.60-5.80); White Blood Count 11.7 X10*3/uL (4.8-10.8)
[2025-06-17 10:40] LABS: NRBC Pct Auto 2.3 /100WBC (0.0-0.2)
[2025-06-17 11:01] LABS: Anion Gap 11 (12-20); Blood Urea Nitrogen 33 mg/dL (9-16); Calcium 8.3 mg/dL (8.4-10.2); Carbon Dioxide 38 mmol/L (22-29); Chloride 95 mmol/L (96-108); Creatinine Clr Calc Pharmacy 62.6; Estimated Glomerular Filt Rate 60; Magnesium 2.4 mg/dL (1.6-2.6); Potassium 4.5 mmol/L (3.3-5.1); Sodium 139 mmol/L (135-145)
[2025-06-17 11:02] LABS: NT Pro B Type Natriuretic Pept 238.3 pg/mL (<300)
[2025-06-17 11:26] LABS: Glucose, Whole Blood 250 mg/dL (60-115)
--- NOTE | 2025-06-17 12:00 | CA_ITS ---
Transthoracic Echocardiogram Patient (Last, First, Middle): Jordy Jenkins, Gender: M Date of : 1945 Age: 80 Procedure Date: 06/17/2025 Procedure Type: Transthoracic Echocardiogram [place] [facility] [place] Height: 187.96 cm Weight: 97.98 kg BSA: 2.25 m2 Heart Rate: 88 bpm BP: 145 / 79 mmHg Plane Tender: Referring MD: Justin Tom MD Wheel Installer: Hugo Hargrove MD Symptoms: /CHF Study Quality: Technically Difficult ECG Rhythm: Sinus Conclusions: - 1. Technically limited study 2. Normal LV ejection fraction of 60 65% with mild LVH 3. Mild aortic stenosis noted by a gradient 4. Normal calculated RV systolic pressure with mildly elevated right atrial pressures Findings Procedure Information Contrast agent, definity, is being given per protocol without apparent complications. Left Ventricle Normal left ventricular size and systolic function. There is mildly increased left ventricular wall thickness. The visually estimated ejection fraction is between 60-65%. Regional wall motion abnormalities can not be excluded due to suboptimal endocardial definition. Diastolic function is indeterminate on the basis of available data. Right Ventricle The right ventricle was not well visualized. Atria The left atrium was not well visualized. Interatrial shunt cannot be excluded. The right atrium was not well visualized. Aortic Valve The aortic valve was not well visualized. There is mild aortic valve stenosis. The peak aortic gradient is 20 mmHg.The mean gradient is 11 mmHg. The aortic valve area is 1.78 cm2. Mitral Valve The mitral valve was not well visualized. There is no mitral valve stenosis. Pulmonic Valve The pulmonic valve was not well visualized. Tricuspid Valve Likely normal tricuspid valve structure and function. There is trace tricuspid valve regurgitation. The right ventricular systolic pressure is 25 mmHg. Mildly elevated right atrial pressure. There is no evidence of pulmonary hypertension. Great Vessels The aorta was not well visualized. The pulmonary artery was not well visualized. Venous The inferior vena cava is mildly dilated. Pericardium/Pleural The pericardium was not well visualized. Prior Study Comparison Changes noted compared to prior study dated: 03/01/2024. mild aortic stenosis is noted Measurements 2D Linear Measurements IVSd: 1.20 0.6-0.9/0.6-1.0 cm LVIDd: 4.88 3.9-5.3/4.2-5.9 cm LVIDd Index: 2.17 2.4-3.2/2.2-3.1 cm/m2 LVIDs: 3.04 2.0-3.6 cm LVPWd: 1.21 0.7-1.1 cm LA Diam: 4.00 2.7-3.8/3.0-4.0 cm LAIDs Index: 1.78 1.5-2.3 cm/m2 LV Mass: 282.05 67-162/88-224 g LV Mass Index: 125.36 43-95/49-115 g/m2 LVOT Diam: 2.30 3.0+(-)1.3 cm Mitral Valve MV Pk E: 0.66 MV PK A: 0.63 MV Decel Time: 246.00 E/A: 1.00 E'Lateral: 6.74 E'Medial: 9.36 E/E' Med: 7.10 E/E' Lat: 9.80 PHT: 72.00 MVA PHT: 3.06 Decel Nolan: 2.76 Aortic Valve AoV Pk [place]: 2.26 AoV Mn [place]: 1.47 AoV VTI: 0.40 AoV Pk Grad: 20.00 Aov Mn Grad: 11.00 ALAN Cont.VTI: 1.78 LVOT LVOT Pk [place]: 0.93 LVOT Mn [place]: 0.65 LVOT VTI: 0.17 LVOT Pk Grad: 3.00 LVOT Mn Grad: 2.00 LVOT Diam: 2.30 LVOT Area: 4.15 Diastolic Function MV Pk E: 0.66 MV Pk A: 0.63 E/A: 1.00 E'Medial: 9.36 E/E' Med: 7.10 E' Laterial: 6.74 E/E' Lat: 9.80 Right Ventricle TAPSE (mm): 43.90 Tricuspid Valve TR Pk [place]: 2.04 TR Pk Grad: 17.00 RA Press: 8.00 RVSP: 25.00 Great Vessels Aorta Sinus of Valsalva: 3.10 2.0-3.5 cm Pulmonary Valve PV Pk [place]: 1.05 Peak PV Grad: 4.00 Updated in Other Vendor System with Status of Final Hugo Hargrove MD electronically signed on 06/17/2025 3:34:37 PM with status of Final
--- NOTE | 2025-06-17 12:00 | HO.PM.IMPN ---
Subjective Subjective Date of Service: 06/17/25 Interval History: anothr run of atrial tachycardia overnight up into 160s; c/o wheezing and dypsnea now Review of Systems Review of Systems: Yes all other systems are reviewed and are negative Physical Exam Vital Signs: Vital Signs: Last Vital Signs Temp 97.5 F 06/17/25 11:42 Pulse 100 06/17/25 11:42 Resp 20 06/17/25 11:42 BP 141/85 H 06/17/25 11:42 Pulse Ox 90 L 06/17/25 11:42 O2 Del Method Nasal Cannula 06/17/25 11:42 O2 Flow Rate 2 06/17/25 11:42 Oxygen Flow Rate 2 06/12/25 10:35 BMI result Body Mass Index 29.4 Gen: tachypneic HEENT: sclera anicteric, moist mucus membranes Neck: supple Lungs: coarse expiratory wheezes Heart: regular, no murmurs Abd: soft, non-tender, non-distended Ext: no edema Skin: warm/well-perfused Neuro: alert and oriented x3, no focal findings Psych: appropriate affect Objective Data Active Medications Acetaminophen (Acetaminophen 325 Mg Tablet) 650 mg PO Q6H PRN PRN Reason: Pain, Mild 1-3,fever,headache Al Hydroxide/Mg Hydroxide (Magnesium Hydrox/Alum Hydrox 30 Ml Oral.Susp) 30 ml PO Q4H PRN PRN Reason: Heartburn Last Admin: 06/16/25 15:09 Dose: 30 ml Documented By: JAY Apixaban (Apixaban 5 Mg Tablet) 5 mg PO BID [facility] Last Admin: 06/17/25 08:43 Dose: 5 mg Documented By: DAWSON Atorvastatin Calcium (Atorvastatin Calcium 10 Mg Tablet) 10 mg PO DAILY [facility] Last Admin: 06/17/25 08:43 Dose: 10 mg Documented By: DAWSON Azithromycin (Azithromycin 500 Mg Tablet) 500 mg PO DAILY [facility] Stop: 06/18/25 08:59 Last Admin: 06/17/25 08:43 Dose: 500 mg Documented By: DAWSON Benzonatate (Benzonatate 100 Mg Capsule) 100 mg PO TID PRN PRN Reason: Cough Bupropion HCl (Bupropion Hcl Xl 300 Mg Tab.Er.24h) 300 mg PO DAILY [facility] Last Admin: 06/17/25 08:43 Dose: 300 mg Documented By: DAWSON Calcium Carbonate (Calcium Carbonate 750 Mg Tab.Chew) 750 mg PO Q4H PRN PRN Reason: Heartburn Ceftriaxone Sodium (Ceftriaxone Sodium 1 Gm Vial) 1 gm IVPUSH Q24H [facility] Last Admin: 06/17/25 11:27 Dose: 1 gm Documented By: DAWSON Dextrose (Dextrose 50 % 25 Gm/50 Ml Syringe) 25 gm IVPUSH Q15M PRN; Protocol PRN Reason: per Hypoglycemia Standing Ord. Diltiazem HCl (Diltiazem Hcl Cd 180 Mg Cap.Er.24h) 180 mg PO DAILY [facility]; Protocol Last Admin: 06/17/25 08:43 Dose: 180 mg Documented By: DAWSON Fentanyl (Fentanyl 100 Mcg Patch.Td72) 100 mcg TRANSDERMA Q3D [facility] Stop: 06/18/25 22:01 Last Admin: 06/15/25 21:17 Dose: 100 mcg Documented By: ZOILA Furosemide (Furosemide 20 Mg Tablet) 20 mg PO BID [facility]; Protocol Last Admin: 06/17/25 08:42 Dose: 20 mg Documented By: DAWSON Glucose (Glucose Gel 15 Gm Gel..Gram.) 15 gm PO Q15M PRN; Protocol PRN Reason: per Hypoglycemia Standing Ord. Insulin Human Lispro (Insulin Lispro 100 Unit/Ml 3 Ml Vial) 0 unit SUBCUT QIDACHS [facility]; Protocol Last Admin: 06/17/25 11:27 Dose: 4 unit Documented By: DAWSON Ipratropium [place] (Ipratropium [place] 0.5 Mg/2.5 Ml Solution) 0.5 mg INHALE RQ4H WHILE AWAKE [facility] Levalbuterol HCl (Levalbuterol Hcl 1.25 Mg/3 Ml Vial.Neb) 1.25 mg INHALE RQ4H WHILE AWAKE [facility] Levalbuterol HCl (Levalbuterol Hcl 1.25 Mg/3 Ml Vial.Neb) 1.25 mg INHALE Q2H PRN PRN Reason: Shortness of Breath/Wheezing Magnesium Hydroxide (Milk Of Magnesia 30 Ml Oral.Susp) 30 ml PO DAILY PRN PRN Reason: Constipation Melatonin (Melatonin 3 Mg Tablet) 6 mg PO BEDTIME PRN PRN Reason: Insomnia Methylprednisolone Sodium Succinate (Methylprednisolone Sod Succ 40 Mg/Ml Vial) 40 mg IVPUSH Q12H [facility] Last Admin: 06/17/25 11:27 Dose: 40 mg Documented By: DAWSON Morphine Sulfate (Morphine Sulfate Oral [place] 10 Mg/5 Ml Solution) 10 mg PO Q4H PRN PRN Reason: Pain (Scale Score 4-6) Multivitamins/Vitamin C (Multivitamin Tablet) 1 tab PO DAILY [facility] Last Admin: 06/17/25 08:42 Dose: 1 tab Documented By: DAWSON Non-Formulary Medication (Latanoprostene Bunod [Vyzulta]) 1 drop EYE-BOTH BEDTIME [facility] Ondansetron HCl (Ondansetron Hcl 4 Mg/2 Ml Vial) 4 mg IVPUSH Q4H PRN PRN Reason: Nausea and Vomiting Last Admin: 06/16/25 15:09 Dose: 4 mg Documented By: JAY Oxycodone HCl (Oxycodone Hcl Immed Release 5 Mg Tablet) 10 mg PO TID PRN PRN Reason: Pain, Moderate(Pain Scale 4-6) Last Admin: 06/17/25 08:44 Dose: 10 mg Documented By: DAWSON Prednisone (Prednisone 20 Mg Tablet) 40 mg PO DAILY [facility] Last Admin: 06/17/25 08:43 Dose: 40 mg Documented By: DAWSON Pregabalin (Pregabalin 150 Mg Capsule) 150 mg PO DAILY [facility] Last Admin: 06/17/25 08:42 Dose: 150 mg Documented By: DAWSON Pyridoxine HCl (Pyridoxine Hcl (Vitamin B6) 50 Mg Tablet) 50 mg PO DAILY [facility] Last Admin: 06/17/25 08:43 Dose: 50 mg Documented By: DAWSNO Sodium Chloride (0.9 % Sodium Chloride Flush 3 Ml Syringe) 3 ml IVFLUSH [facility] Last Admin: 06/17/25 08:41 Dose: 3 ml Documented By: DAWSON Tamsulosin HCl (Tamsulosin Hcl 0.4 Mg Capsule) 0.4 mg PO BEDTIME [facility] Last Admin: 06/16/25 20:07 Dose: 0.4 mg Documented By: MADHAV Vitamin D (Cholecalciferol (Vitamin D3) 25 Mcg Tablet) 25 mcg PO DAILY [facility] Last Admin: 06/17/25 08:43 Dose: 25 mcg Documented By: DAWSON Labs 06/17/25 10:31 06/17/25 10:31 Labs: Laboratory Results - last 24 hr 06/16/25 06/16/25 06/17/25 16:09 19:23 07:11 MCV MCH MCHC RDW Plt Count MPV Absolute Nucleated RBC Nucleated RBC % (auto) Anion Gap Estim Creat Clear Calc Estimated GFR POC Glucose 373 H* 290 H 150 H Random Glucose Calcium Magnesium NT-Pro-B Natriuret Pep 06/17/25 06/17/25 10:31 11:19 MCV 109.6 H MCH 36.0 H MCHC 32.8 RDW 15.8 Plt Count 201 MPV 10.5 Absolute Nucleated RBC 0.270 H Nucleated RBC % (auto) 2.3 H Anion Gap 11 L Estim Creat Clear Calc 62.6 Estimated GFR 60 POC Glucose 250 H Random Glucose 268 H Calcium 8.3 L Magnesium 2.4 NT-Pro-B Natriuret Pep 238.3 Assessment and Plan (1) Chronic obstructive pulmonary disease, unspecified: Status: Acute (2) Atrial arrhythmia: Status: Acute (3) Acute hypoxic respiratory failure: Status: Acute Plan d6, 80yo M with hx spontaneous pneumothorax, COPD on 3-4 L of oxygen, HLD, BPH, chronic back pain on fentanyl patch and liquid morphine, arthritis, hx OUD who was home hospice but came in to the hospital and was admitted for sepsis from pneumonia acute/chronic hypoxic respiratory failure and sepsis due to PNA: continue ceftriaxone + azithromycin 06/13, blood cultures negative, wean O2 as tolerated; CXR stable; check TTE + NT-proBNP COPD exacerbation: change prednisone back to methylprednisolone, continue levalbuterol but schedule while awak and add prn; also ipratropium atrial arrhythmias: short bursts of SVTs, possibly atrial tachycardia per Cardiology; switched albuterol to levalbuterol and switched metoprolol to diltiazem and now on 180 mg/d controlled-release chronic pain: fentanyl patch + liquid morphine, pregabalin hx AF: apixaban, diltiazem mood disorder: bupropion VTE ppx: apixaban dispo: eventual home to resume hospice In my clinical judgment, the patient requires continued inpatient hospitalization for the following reasons: resp distress, IV ABX, atrial arrhythmia Total time managing care of this patient today: 35 minutes. Quality Stroke Does the patient have a stroke diagnosis?: No VTE Prior VTE?: No VTE Risk Level:: Medical - moderate - high VTE Device Contraindication: Treatment Not Indicated VTE Drug Contraindication: N/A - Med Ordered
[2025-06-17] MEDS: Ipratropium Bromide 0.5 MG/2.5 ML SOLUTION INHALE ×3 (12:24→18:50)
--- NOTE | 2025-06-17 13:33 | MHC.CM.PN ---
EMR REVIEWED, PER MD PT WILL REMIAN INPT FOR TX OF ATRIAL TACHYCARDIA AND WHEEZING, ANTIC PT WILL NEED STR HE REPORTED TO [facility] THAT HE WANTED HOSPICE BUT ALSO IF THERE WAS A CHANCE HE COULD HE WANTS TO LIVE, REF PLACED AND CM WILL CONT TO FOLLOW DC NEEDS.
[2025-06-17 16:16] LABS: Glucose, Whole Blood 291 mg/dL (60-115)
[2025-06-17 20:23] LABS: Glucose, Whole Blood 286 mg/dL (60-115)
[2025-06-18] VITALS (12 sets, daily range): BP systolic 120–163; BP diastolic 58–76; PULSE 78–108; RESP 18–22; TEMP 36.4–37.1; O2SAT 92–97
[2025-06-18 07:38] LABS: Glucose, Whole Blood 215 mg/dL (60-115)
[2025-06-18] MEDS: Ipratropium Bromide 0.5 MG/2.5 ML SOLUTION INHALE ×4 (08:23→18:56)
[2025-06-18] MEDS: 0.9 % Sodium Chloride Flush 3 ML SYRINGE IVFLUSH ×3 (09:14→20:54)
[2025-06-18] MEDS: buPROPion HCl XL 300 MG TAB.ER.24H PO (09:15)
[2025-06-18] MEDS: dilTIAZem HCL CD 240 MG CAP.ER.DEG PO (09:18)
[2025-06-18 11:25] LABS: Glucose, Whole Blood 207 mg/dL (60-115)
--- NOTE | 2025-06-18 11:43 | P.PNIM_ITS ---
Subjective Subjective Date of Service: 06/18/25 Interval History: episodes of SVT/atrial tachycardia in 160s overnight still wheezing and short of breath though better than yesterday no chest pain Review of Systems Review of Systems: Yes all other systems are reviewed and are negative Physical Exam 2 Vital Signs: Vital Signs: Last Vital Signs Temp 98.1 F 06/18/25 08:00 Pulse 108 H 06/18/25 11:24 Resp 18 06/18/25 11:24 BP 163/74 H 06/18/25 09:18 Pulse Ox 94 06/18/25 08:00 O2 Del Method Nasal Cannula 06/18/25 08:00 O2 Flow Rate 2 06/18/25 08:00 Oxygen Flow Rate 2 06/12/25 10:35 BMI result Body Mass Index 29.4 Gen: NAD HEENT: sclera anicteric, moist mucus membranes Neck: supple Lungs: coarse expiratory wheezes Heart: regular, tachycardic, no murmurs Abd: soft, non-tender, non-distended Ext: no edema Skin: warm/well-perfused Neuro: alert and oriented x3, no focal findings Psych: appropriate affect Objective Data Active Medications Acetaminophen (Acetaminophen 325 Mg Tablet) 650 mg PO Q6H PRN PRN Reason: Pain, Mild 1-3,fever,headache Al Hydroxide/Mg Hydroxide (Magnesium Hydrox/Alum Hydrox 30 Ml Oral.Susp) 30 ml PO Q4H PRN PRN Reason: Heartburn Last Admin: 06/16/25 15:09 Dose: 30 ml Documented By: JAY Apixaban (Apixaban 5 Mg Tablet) 5 mg PO BID [facility] Last Admin: 06/18/25 09:14 Dose: 5 mg Documented By: WILTON Atorvastatin Calcium (Atorvastatin Calcium 10 Mg Tablet) 10 mg PO DAILY [facility] Last Admin: 06/18/25 09:14 Dose: 10 mg Documented By: WILTON Benzonatate (Benzonatate 100 Mg Capsule) 100 mg PO TID PRN PRN Reason: Cough Bupropion HCl (Bupropion Hcl Xl 300 Mg Tab.Er.24h) 300 mg PO DAILY [facility] Last Admin: 06/18/25 09:15 Dose: 300 mg Documented By: WILTON Calcium Carbonate (Calcium Carbonate 750 Mg Tab.Chew) 750 mg PO Q4H PRN PRN Reason: Heartburn Ceftriaxone Sodium (Ceftriaxone Sodium 1 Gm Vial) 1 gm IVPUSH Q24H [facility] Last Admin: 06/17/25 11:27 Dose: 1 gm Documented By: DAWSON Dextrose (Dextrose 50 % 25 Gm/50 Ml Syringe) 25 gm IVPUSH Q15M PRN; Protocol PRN Reason: per Hypoglycemia Standing Ord. Diltiazem HCl (Diltiazem Hcl Cd 240 Mg Cap.Er.Deg) 240 mg PO DAILY [facility]; Protocol Last Admin: 06/18/25 09:18 Dose: 240 mg Documented By: WILTON Fentanyl (Fentanyl 100 Mcg Patch.Td72) 100 mcg TRANSDERMA Q3D [facility] Stop: 06/18/25 22:01 Last Admin: 06/15/25 21:17 Dose: 100 mcg Documented By: ZOILA Furosemide (Furosemide 20 Mg Tablet) 20 mg PO BID [facility]; Protocol Last Admin: 06/18/25 09:16 Dose: 20 mg Documented By: WILTON Glucose (Glucose Gel 15 Gm Gel..Gram.) 15 gm PO Q15M PRN; Protocol PRN Reason: per Hypoglycemia Standing Ord. Insulin Human Lispro (Insulin Lispro 100 Unit/Ml 3 Ml Vial) 0 unit SUBCUT QIDACHS [facility]; Protocol Last Admin: 06/18/25 09:13 Dose: 4 unit Documented By: WILTON Ipratropium [place] (Ipratropium [place] 0.5 Mg/2.5 Ml Solution) 0.5 mg INHALE RQ4H WHILE AWAKE [facility] Last Admin: 06/18/25 11:24 Dose: 0.5 mg Documented By: ROMMEL Levalbuterol HCl (Levalbuterol Hcl 1.25 Mg/3 Ml Vial.Neb) 1.25 mg INHALE RQ4H WHILE AWAKE [facility] Last Admin: 06/18/25 11:24 Dose: 1.25 mg Documented By: ROMMEL Levalbuterol HCl (Levalbuterol Hcl 1.25 Mg/3 Ml Vial.Neb) 1.25 mg INHALE Q2H PRN PRN Reason: Shortness of Breath/Wheezing Magnesium Hydroxide (Milk Of Magnesia 30 Ml Oral.Susp) 30 ml PO DAILY PRN PRN Reason: Constipation Melatonin (Melatonin 3 Mg Tablet) 6 mg PO BEDTIME PRN PRN Reason: Insomnia Methylprednisolone Sodium Succinate (Methylprednisolone Sod Succ 40 Mg/Ml Vial) 40 mg IVPUSH Q12H [facility] Last Admin: 06/18/25 09:24 Dose: Not Given Documented By: WILTON Non-Admin Reason: Physician Approved Metoprolol Tartrate (Metoprolol Tartrate 5 Mg/5 Ml Vial) 5 mg IVPUSH Q6H PRN; Protocol PRN Reason: Heart Rate >100 Last Admin: 06/17/25 20:45 Dose: 5 mg Documented By: CM Morphine Sulfate (Morphine Sulfate Oral [place] 10 Mg/5 Ml Solution) 10 mg PO Q4H PRN PRN Reason: Pain (Scale Score 4-6) Multivitamins/Vitamin C (Multivitamin Tablet) 1 tab PO DAILY [facility] Last Admin: 06/18/25 09:17 Dose: 1 tab Documented By: WILTON Non-Formulary Medication (Latanoprostene Bunod [Vyzulta]) 1 drop EYE-BOTH BEDTIME [facility] Ondansetron HCl (Ondansetron Hcl 4 Mg/2 Ml Vial) 4 mg IVPUSH Q4H PRN PRN Reason: Nausea and Vomiting Last Admin: 06/16/25 15:09 Dose: 4 mg Documented By: JAY Oxycodone HCl (Oxycodone Hcl Immed Release 5 Mg Tablet) 10 mg PO TID PRN PRN Reason: Pain, Moderate(Pain Scale 4-6) Last Admin: 06/17/25 23:25 Dose: 10 mg Documented By: CM Prednisone (Prednisone 20 Mg Tablet) 40 mg PO DAILY [facility] Last Admin: 06/18/25 09:14 Dose: 40 mg Documented By: WILTON Pregabalin (Pregabalin 150 Mg Capsule) 150 mg PO DAILY [facility] Last Admin: 06/18/25 09:15 Dose: 150 mg Documented By: WILTON Pyridoxine HCl (Pyridoxine Hcl (Vitamin B6) 50 Mg Tablet) 50 mg PO DAILY [facility] Last Admin: 06/18/25 09:15 Dose: 50 mg Documented By: WILTON Sodium Chloride (0.9 % Sodium Chloride Flush 3 Ml Syringe) 3 ml IVFLUSH QSHIFT [facility] Last Admin: 06/18/25 09:14 Dose: 3 ml Documented By: WILTON Tamsulosin HCl (Tamsulosin Hcl 0.4 Mg Capsule) 0.4 mg PO BEDTIME [facility] Last Admin: 06/17/25 19:59 Dose: 0.4 mg Documented By: CM Vitamin D (Cholecalciferol (Vitamin D3) 25 Mcg Tablet) 25 mcg PO DAILY [facility] Last Admin: 06/18/25 09:14 Dose: 25 mcg Documented By: WILTON Labs 06/17/25 10:31 06/17/25 10:31 Labs: Laboratory Results - last 24 hr 06/17/25 06/17/25 06/18/25 16:12 19:51 07:29 POC Glucose 291 H 286 H 215 H 06/18/25 11:21 POC Glucose 207 H Microbiology Microbiology Results: Microbiology 06/12/25 10:52 Blood Culture - Final Blood - Venous No growth after 5 days. 06/12/25 10:45 Blood Culture - Final Blood - Venous No growth after 5 days. Assessment and Plan (1) Chronic obstructive pulmonary disease, unspecified: Status: Acute (2) Atrial arrhythmia: Status: Acute (3) Acute hypoxic respiratory failure: Status: Acute Plan d7 80yo M with hx spontaneous pneumothorax, COPD on 3-4 L of oxygen, HLD, BPH, chronic back pain on fentanyl patch and liquid morphine, arthritis, hx OUD who was home hospice but came in to the hospital and revoked hospice; admitted for sepsis from pneumonia complicated by COPD exacerbation and SVT vs atrial tachycardia acute/chronic hypoxic respiratory failure and sepsis due to PNA: continue ceftriaxone + azithromycin 06/13-, blood cultures negative, wean O2 as tolerated; CXR stable; TTE 06/17: '1. Technically limited study 2. Normal LV ejection fraction of 60 65% with mild LVH 3. Mild aortic stenosis noted by a gradient 4. Normal calculated RV systolic pressure with mildly elevated right atrial pressures' COPD exacerbation: changed prednisone back to methylprednisolone 06/17-, continued levalbuterol but scheduled while awake and added prn; also ipratropium atrial arrhythmias: short bursts of SVTs, possibly atrial tachycardia per Cardiology; switched albuterol to levalbuterol and switched metoprolol to diltiazem; will increase diltiazem from 180 to 240 mg/d chronic pain: fentanyl patch + liquid morphine, IV hydromorphone, pregabalin hx AF: apixaban, diltiazem mood disorder: bupropion VTE ppx: apixaban dispo: plan is eventual home to reinstate hospice In my clinical judgment, the patient requires continued inpatient hospitalization for the following reasons: resp distress, atrial arrhythmia Total time managing care of this patient today: 35 minutes. Quality Stroke Does the patient have a stroke diagnosis?: No VTE Prior VTE?: No VTE Risk Level:: Medical - moderate - high VTE Device Contraindication: Treatment Not Indicated VTE Drug Contraindication: N/A - Med Ordered
[2025-06-18] MEDS: Magnesium Hydrox/Alum Hydrox 30 ML ORAL.SUSP PO (13:37)
[2025-06-18 15:48] LABS: Glucose, Whole Blood 228 mg/dL (60-115)
[2025-06-18 18:17] LABS: Glucose, Whole Blood 295 mg/dL (60-115)
[2025-06-18] MEDS: Morphine Sulfate Oral Sol 10 MG/5 ML SOLUTION PO (18:25)
[2025-06-18 20:48] LABS: Glucose, Whole Blood 240 mg/dL (60-115)
[2025-06-18] MEDS: fentaNYL 100 MCG PATCH.TD72 TRANSDERMA (22:23)
[2025-06-19] VITALS (12 sets, daily range): BP systolic 99–165; BP diastolic 62–96; PULSE 85–109; RESP 16–22; TEMP 36.6–37.1; O2SAT 92–97
[2025-06-19] MEDS: oxyCODONE HCl Immed Release 5 MG TABLET 10 MG PO (00:12)
[2025-06-19 07:13] LABS: VBG HCO3 51 mmol/L (22-26)
[2025-06-19 07:21] LABS: Venous Blood Gas Refer to POC result
[2025-06-19 07:43] LABS: Anion Gap 14 (12-20); Blood Urea Nitrogen 35 mg/dL (9-16); Calcium 8.7 mg/dL (8.4-10.2); Carbon Dioxide 37 mmol/L (22-29); Chloride 93 mmol/L (96-108); Creatinine Clr Calc Pharmacy 64.2; Estimated Glomerular Filt Rate > 60; Potassium 5.4 mmol/L (3.3-5.1); Sodium 139 mmol/L (135-145)
[2025-06-19 07:54] LABS: Glucose, Whole Blood 205 mg/dL (60-115)
[2025-06-19] MEDS: Ipratropium Bromide 0.5 MG/2.5 ML SOLUTION INHALE ×4 (07:55→20:10)
[2025-06-19] MEDS: 0.9 % Sodium Chloride Flush 3 ML SYRINGE IVFLUSH ×3 (09:11→21:26)
[2025-06-19] MEDS: buPROPion HCl XL 300 MG TAB.ER.24H PO (09:12)
[2025-06-19] MEDS: dilTIAZem HCL CD 240 MG CAP.ER.DEG PO (09:12)
[2025-06-19 12:22] LABS: Glucose, Whole Blood 220 mg/dL (60-115)
--- NOTE | 2025-06-19 15:06 | HO.PM.IMPN ---
Subjective Subjective Date of Service: 06/19/25 Interval History: Still with significant shortness of breath on minimal exertion. Review of Systems Denies chest pain Admits shortness of breath with minimal exertion Denies nausea vomiting diarrhea Denies fever chills Physical Exam Vital Signs: Vital Signs: Last Vital Signs Temp 98.7 F 06/19/25 11:41 Pulse 105 H 06/19/25 15:02 Resp 22 H 06/19/25 15:02 BP 124/96 H 06/19/25 11:41 Pulse Ox 93 06/19/25 11:41 O2 Del Method Nasal Cannula 06/19/25 11:41 O2 Flow Rate 3 06/19/25 11:41 Oxygen Flow Rate 2 06/12/25 10:35 BMI result Body Mass Index 29.4 Const: Other: Awake alert able to speak in short sentences Resp: Other: Diminished throughout with dense expiratory wheezes Cardio: Other: No S4; positive S1-S2; no S3 murmurs rubs or gallops GI: Other: Soft nontender nondistended normoactive bowel sounds Extrem: Other: No edema bilaterally Objective Data Active Medications Acetaminophen (Acetaminophen 325 Mg Tablet) 650 mg PO Q6H PRN PRN Reason: Pain, Mild 1-3,fever,headache Al Hydroxide/Mg Hydroxide (Magnesium Hydrox/Alum Hydrox 30 Ml Oral.Susp) 30 ml PO Q4H PRN PRN Reason: Heartburn Last Admin: 06/18/25 13:37 Dose: 30 ml Documented By: WILTON Apixaban (Apixaban 5 Mg Tablet) 5 mg PO BID [facility] Last Admin: 06/19/25 09:12 Dose: 5 mg Documented By: CRISTIANO Atorvastatin Calcium (Atorvastatin Calcium 10 Mg Tablet) 10 mg PO DAILY [facility] Last Admin: 06/19/25 09:12 Dose: 10 mg Documented By: CRISTIANO Benzonatate (Benzonatate 100 Mg Capsule) 100 mg PO TID PRN PRN Reason: Cough Last Admin: 06/18/25 14:00 Dose: 100 mg Documented By: WILTON Bupropion HCl (Bupropion Hcl Xl 300 Mg Tab.Er.24h) 300 mg PO DAILY [facility] Last Admin: 06/19/25 09:12 Dose: 300 mg Documented By: CRISTIANO Calcium Carbonate (Calcium Carbonate 750 Mg Tab.Chew) 750 mg PO Q4H PRN PRN Reason: Heartburn Ceftriaxone Sodium (Ceftriaxone Sodium 1 Gm Vial) 1 gm IVPUSH Q24H [facility] Last Admin: 06/19/25 12:33 Dose: 1 gm Documented By: CRISTIANO Dextrose (Dextrose 50 % 25 Gm/50 Ml Syringe) 25 gm IVPUSH Q15M PRN; Protocol PRN Reason: per Hypoglycemia Standing Ord. Diltiazem HCl (Diltiazem Hcl Cd 240 Mg Cap.Er.Deg) 240 mg PO DAILY [facility]; Protocol Last Admin: 06/19/25 09:12 Dose: 240 mg Documented By: CRISTIANO Furosemide (Furosemide 20 Mg Tablet) 20 mg PO BID [facility]; Protocol Last Admin: 06/19/25 09:11 Dose: 20 mg Documented By: CRISTIANO Glucose (Glucose Gel 15 Gm Gel..Gram.) 15 gm PO Q15M PRN; Protocol PRN Reason: per Hypoglycemia Standing Ord. Hydromorphone HCl (Hydromorphone Hcl 0.5 Mg/0.5 Ml Syringe) 0.5 mg IVPUSH Q4H PRN; Protocol PRN Reason: Pain, Severe (Pain Scale 7-10) Last Admin: 06/19/25 07:22 Dose: 0.5 mg Documented By: CM Insulin Human Lispro (Insulin Lispro 100 Unit/Ml 3 Ml Vial) 0 unit SUBCUT QIDACHS [facility]; Protocol Last Admin: 06/19/25 12:32 Dose: 4 unit Documented By: CRISTIANO Ipratropium [place] (Ipratropium [place] 0.5 Mg/2.5 Ml Solution) 0.5 mg INHALE RQ4H WHILE AWAKE [facility] Last Admin: 06/19/25 15:01 Dose: 0.5 mg Documented By: MACARENA Levalbuterol HCl (Levalbuterol Hcl 1.25 Mg/3 Ml Vial.Neb) 1.25 mg INHALE RQ4H WHILE AWAKE [facility] Last Admin: 06/19/25 15:02 Dose: 1.25 mg Documented By: MACARENA Levalbuterol HCl (Levalbuterol Hcl 1.25 Mg/3 Ml Vial.Neb) 1.25 mg INHALE Q2H PRN PRN Reason: Shortness of Breath/Wheezing Magnesium Hydroxide (Milk Of Magnesia 30 Ml Oral.Susp) 30 ml PO DAILY PRN PRN Reason: Constipation Melatonin (Melatonin 3 Mg Tablet) 6 mg PO BEDTIME PRN PRN Reason: Insomnia Methylprednisolone Sodium Succinate (Methylprednisolone Sod Succ 125 Mg/2 Ml Vial) 60 mg IVPUSH Q6H [facility] Metoprolol Tartrate (Metoprolol Tartrate 5 Mg/5 Ml Vial) 5 mg IVPUSH Q6H PRN; Protocol PRN Reason: Heart Rate >100 Last Admin: 06/17/25 20:45 Dose: 5 mg Documented By: CM Morphine Sulfate (Morphine Sulfate Oral [place] 10 Mg/5 Ml Solution) 10 mg PO Q4H PRN PRN Reason: Pain (Scale Score 4-6) Last Admin: 06/18/25 18:25 Dose: 10 mg Documented By: WILTON Multivitamins/Vitamin C (Multivitamin Tablet) 1 tab PO DAILY [facility] Last Admin: 06/19/25 09:12 Dose: 1 tab Documented By: CRISTIANO Ondansetron HCl (Ondansetron Hcl 4 Mg/2 Ml Vial) 4 mg IVPUSH Q4H PRN PRN Reason: Nausea and Vomiting Last Admin: 06/16/25 15:09 Dose: 4 mg Documented By: JAY Oxycodone HCl (Oxycodone Hcl Immed Release 5 Mg Tablet) 10 mg PO TID PRN PRN Reason: Pain, Moderate(Pain Scale 4-6) Last Admin: 06/19/25 00:12 Dose: 10 mg Documented By: CM Pregabalin (Pregabalin 150 Mg Capsule) 150 mg PO DAILY [facility] Last Admin: 06/19/25 09:12 Dose: 150 mg Documented By: CRISTIANO Pyridoxine HCl (Pyridoxine Hcl (Vitamin B6) 50 Mg Tablet) 50 mg PO DAILY [facility] Last Admin: 06/19/25 09:12 Dose: 50 mg Documented By: CRISTIANO Sodium Chloride (0.9 % Sodium Chloride Flush 3 Ml Syringe) 3 ml IVFLUSH QSHIFT [facility] Last Admin: 06/19/25 09:11 Dose: 3 ml Documented By: CRISTIANO Tamsulosin HCl (Tamsulosin Hcl 0.4 Mg Capsule) 0.4 mg PO BEDTIME [facility] Last Admin: 06/18/25 20:53 Dose: 0.4 mg Documented By: CM Vitamin D (Cholecalciferol (Vitamin D3) 25 Mcg Tablet) 25 mcg PO DAILY [facility] Last Admin: 06/19/25 09:12 Dose: 25 mcg Documented By: CRISTIANO Labs 06/17/25 10:31 06/19/25 07:01 Labs: Laboratory Results - last 24 hr 06/18/25 06/18/25 06/18/25 15:45 18:13 20:44 Hold Purple Top VBG pH VBG pCO2 VBG pO2 VBG HCO3 VBG O2 Saturation VBG Base Excess Anion Gap Estim Creat Clear Calc Estimated GFR POC Glucose 228 H 295 H 240 H Random Glucose Calcium 06/19/25 06/19/25 06/19/25 07:01 07:09 07:38 Hold Purple Top SEE NOTE VBG pH 7.44 H VBG pCO2 74 VBG pO2 41 VBG HCO3 51 H VBG O2 Saturation TNP VBG Base Excess 22.6 Anion Gap 14 Estim Creat Clear Calc 64.2 Estimated GFR > 60 POC Glucose 205 H Random Glucose 216 H Calcium 8.7 06/19/25 11:44 Hold Purple Top VBG pH VBG pCO2 VBG pO2 VBG HCO3 VBG O2 Saturation VBG Base Excess Anion Gap Estim Creat Clear Calc Estimated GFR POC Glucose 220 H Random Glucose Calcium Assessment and Plan (1) Acute hypoxic respiratory failure: Status: Acute (2) Chronic obstructive pulmonary disease, unspecified: Status: Acute (3) Atrial fibrillation with rapid ventricular response: Status: Acute Plan 80yo M with hx spontaneous pneumothorax, COPD on 3-4 L of oxygen, HLD, BPH, chronic back pain on fentanyl patch and liquid morphine, arthritis, hx OUD who was home hospice but came in to the hospital and revoked hospice; admitted for sepsis from pneumonia complicated by COPD exacerbation and SVT vs atrial tachycardia 1.Acute/chronic hypoxic respiratory failure/sepsis/ PNA: -CTX/Azithro (7) - blood cultures negative.... wean O2 as tolerated 2. COPD exacerbation -increase methylprednisolone to 60 mg q.6 -continued levalbuterol -wean O2 as tolerated 4.Atrial arrhythmias -Cardizem increased with good results -appreciate cardiology input -Eliquis VTE ppx: apixaban dispo: plan is eventual home to reinstate hospice In my clinical judgment, the patient requires continued inpatient hospitalization for the following reasons: resp distress, atrial arrhythmia Quality Stroke Does the patient have a stroke diagnosis?: No VTE Prior VTE?: No VTE Risk Level:: Medical - moderate - high VTE Device Contraindication: Treatment Not Indicated VTE Drug Contraindication: N/A - Med Ordered
[2025-06-19 15:53] LABS: Glucose, Whole Blood 235 mg/dL (60-115)
[2025-06-19 21:06] LABS: Glucose, Whole Blood 250 mg/dL (60-115)
[2025-06-20] VITALS (10 sets, daily range): BP systolic 117–160; BP diastolic 68–80; PULSE 79–103; RESP 18–24; TEMP 36.4–37.3; O2SAT 93–97
[2025-06-20 07:34] LABS: Glucose, Whole Blood 232 mg/dL (60-115)
[2025-06-20] MEDS: Ipratropium Bromide 0.5 MG/2.5 ML SOLUTION INHALE ×4 (08:41→20:40)
[2025-06-20] MEDS: buPROPion HCl XL 300 MG TAB.ER.24H PO (08:41)
[2025-06-20] MEDS: dilTIAZem HCL CD 240 MG CAP.ER.DEG PO (08:43)
[2025-06-20] MEDS: Milk of Magnesia 30 ML ORAL.SUSP PO (08:47)
[2025-06-20 11:15] LABS: Glucose, Whole Blood 354 mg/dL (60-115)
--- NOTE | 2025-06-20 15:07 | MHC.CM.PN ---
EMR REVIEWED AND PER MD ROUNDS, PATIENT IS NOT MEDICALLY CLEARED FOR DISCHARGE DUE TO MANAGEMENT OF PNA/RESPIRATORY DISTRESS.
[2025-06-20 15:56] LABS: Glucose, Whole Blood 246 mg/dL (60-115)
--- NOTE | 2025-06-20 16:33 | HO.PM.IMPN ---
Subjective Subjective Date of Service: 06/20/25 Interval History: Essentially no improvement with increase of steroids. Review of Systems Denies chest pain Admits shortness of breath with minimal exertion Denies nausea vomiting diarrhea Denies fever chills Physical Exam Vital Signs: Vital Signs: Last Vital Signs Temp 99.1 F 06/20/25 15:28 Pulse 81 06/20/25 15:28 Resp 18 06/20/25 15:28 BP 142/78 H 06/20/25 15:28 Pulse Ox 96 06/20/25 15:28 O2 Del Method Nasal Cannula 06/20/25 15:28 O2 Flow Rate 3 06/20/25 15:28 Oxygen Flow Rate 2 06/12/25 10:35 BMI result Body Mass Index 29.4 Const: Other: Awake alert able to speak in short sentences Resp: Other: Diminished throughout with dense expiratory wheezes Cardio: Other: No S4; positive S1-S2; no S3 murmurs rubs or gallops GI: Other: Soft nontender nondistended normoactive bowel sounds Extrem: Other: No edema bilaterally Objective Data Active Medications Acetaminophen (Acetaminophen 325 Mg Tablet) 650 mg PO Q6H PRN PRN Reason: Pain, Mild 1-3,fever,headache Al Hydroxide/Mg Hydroxide (Magnesium Hydrox/Alum Hydrox 30 Ml Oral.Susp) 30 ml PO Q4H PRN PRN Reason: Heartburn Last Admin: 06/18/25 13:37 Dose: 30 ml Documented By: WILTON Apixaban (Apixaban 5 Mg Tablet) 5 mg PO BID [facility] Last Admin: 06/20/25 08:43 Dose: 5 mg Documented By: LUCIANA Atorvastatin Calcium (Atorvastatin Calcium 10 Mg Tablet) 10 mg PO DAILY [facility] Last Admin: 06/20/25 08:43 Dose: 10 mg Documented By: LUCIANA Benzonatate (Benzonatate 100 Mg Capsule) 100 mg PO TID PRN PRN Reason: Cough Last Admin: 06/18/25 14:00 Dose: 100 mg Documented By: WILTON Bupropion HCl (Bupropion Hcl Xl 300 Mg Tab.Er.24h) 300 mg PO DAILY [facility] Last Admin: 06/20/25 08:41 Dose: 300 mg Documented By: LUCIANA Calcium Carbonate (Calcium Carbonate 750 Mg Tab.Chew) 750 mg PO Q4H PRN PRN Reason: Heartburn Ceftriaxone Sodium (Ceftriaxone Sodium 1 Gm Vial) 1 gm IVPUSH Q24H [facility] Last Admin: 06/20/25 12:34 Dose: 1 gm Documented By: LUCIANA Dextrose (Dextrose 50 % 25 Gm/50 Ml Syringe) 25 gm IVPUSH Q15M PRN; Protocol PRN Reason: per Hypoglycemia Standing Ord. Diltiazem HCl (Diltiazem Hcl Cd 240 Mg Cap.Er.Deg) 240 mg PO DAILY [facility]; Protocol Last Admin: 06/20/25 08:43 Dose: 240 mg Documented By: LUCIANA Furosemide (Furosemide 20 Mg Tablet) 20 mg PO BID [facility]; Protocol Last Admin: 06/20/25 08:43 Dose: 20 mg Documented By: LUCIANA Glucose (Glucose Gel 15 Gm Gel..Gram.) 15 gm PO Q15M PRN; Protocol PRN Reason: per Hypoglycemia Standing Ord. Insulin Human Lispro (Insulin Lispro 100 Unit/Ml 3 Ml Vial) 0 unit SUBCUT QIDACHS [facility]; Protocol Last Admin: 06/20/25 12:34 Dose: 8 unit Documented By: LUCIANA Ipratropium [place] (Ipratropium [place] 0.5 Mg/2.5 Ml Solution) 0.5 mg INHALE RQ4H WHILE AWAKE [facility] Last Admin: 06/20/25 15:05 Dose: 0.5 mg Documented By: OPHELIA Levalbuterol HCl (Levalbuterol Hcl 1.25 Mg/3 Ml Vial.Neb) 1.25 mg INHALE RQ4H WHILE AWAKE [facility] Last Admin: 06/20/25 15:04 Dose: 1.25 mg Documented By: OPHELIA Levalbuterol HCl (Levalbuterol Hcl 1.25 Mg/3 Ml Vial.Neb) 1.25 mg INHALE Q2H PRN PRN Reason: Shortness of Breath/Wheezing Magnesium Hydroxide (Milk Of Magnesia 30 Ml Oral.Susp) 30 ml PO DAILY PRN PRN Reason: Constipation Last Admin: 06/20/25 08:47 Dose: 30 ml Documented By: LUCIANA Melatonin (Melatonin 3 Mg Tablet) 6 mg PO BEDTIME PRN PRN Reason: Insomnia Methylprednisolone Sodium Succinate (Methylprednisolone Sod Succ 125 Mg/2 Ml Vial) 60 mg IVPUSH Q6H [facility] Last Admin: 06/20/25 08:44 Dose: 60 mg Documented By: LUCIANA Metoprolol Tartrate (Metoprolol Tartrate 5 Mg/5 Ml Vial) 5 mg IVPUSH Q6H PRN; Protocol PRN Reason: Heart Rate >100 Last Admin: 06/20/25 12:34 Dose: 5 mg Documented By: LUCIANA Morphine Sulfate (Morphine Sulfate 4 Mg/Ml Cartridge) 4 mg IVPUSH Q2H PRN; Protocol PRN Reason: Restlessness Last Admin: 06/20/25 12:32 Dose: 4 mg Documented By: LUCIANA Multivitamins/Vitamin C (Multivitamin Tablet) 1 tab PO DAILY [facility] Last Admin: 06/20/25 08:44 Dose: 1 tab Documented By: LUCIANA Ondansetron HCl (Ondansetron Hcl 4 Mg/2 Ml Vial) 4 mg IVPUSH Q4H PRN PRN Reason: Nausea and Vomiting Last Admin: 06/16/25 15:09 Dose: 4 mg Documented By: JAY Oxycodone HCl (Oxycodone Hcl Immed Release 5 Mg Tablet) 10 mg PO TID PRN PRN Reason: Pain, Moderate(Pain Scale 4-6) Last Admin: 06/19/25 00:12 Dose: 10 mg Documented By: CM Pregabalin (Pregabalin 150 Mg Capsule) 150 mg PO DAILY [facility] Last Admin: 06/20/25 08:43 Dose: 150 mg Documented By: LUCIANA Pyridoxine HCl (Pyridoxine Hcl (Vitamin B6) 50 Mg Tablet) 50 mg PO DAILY [facility] Last Admin: 06/20/25 08:43 Dose: 50 mg Documented By: LUCIANA Sodium Chloride (0.9 % Sodium Chloride Flush 3 Ml Syringe) 3 ml IVFLUSH QSHIFT [facility] Last Admin: 06/20/25 08:45 Dose: Not Given Documented By: LUCIANA Non-Admin Reason: Previously Administered Comments: wont scan barcode Tamsulosin HCl (Tamsulosin Hcl 0.4 Mg Capsule) 0.4 mg PO BEDTIME [facility] Last Admin: 06/19/25 21:24 Dose: 0.4 mg Documented By: KIRSTIN Vitamin D (Cholecalciferol (Vitamin D3) 25 Mcg Tablet) 25 mcg PO DAILY [facility] Last Admin: 06/20/25 08:42 Dose: 25 mcg Documented By: LUCIANA Labs 06/17/25 10:31 06/19/25 07:01 Labs: Laboratory Results - last 24 hr 06/19/25 06/20/25 06/20/25 21:03 07:27 11:09 POC Glucose 250 H 232 H 354 H* 06/20/25 15:51 POC Glucose 246 H Assessment and Plan (1) Pneumonia: Status: Acute (2) COPD (chronic obstructive pulmonary disease): Status: Acute Plan 80yo M with hx spontaneous pneumothorax, COPD on 3-4 L of oxygen, HLD, BPH, chronic back pain on fentanyl patch and liquid morphine, arthritis, hx OUD who was home hospice but came in to the hospital and revoked hospice; admitted for sepsis from pneumonia complicated by COPD exacerbation and SVT vs atrial tachycardia 1.Acute/chronic hypoxic respiratory failure/sepsis/ PNA: -CTX/Azithro (9) - blood cultures negative.... wean O2 as tolerated 2. COPD exacerbation -increase methylprednisolone to 60 mg q.6.. Minimal relief -prn morphine to improve breathing quality -continued levalbuterol -wean O2 as tolerated 4.Atrial arrhythmias -Cardizem increased with good results -appreciate cardiology input -Eliquis VTE ppx: apixaban dispo: plan is eventual home to reinstate hospice In my clinical judgment, the patient requires continued inpatient hospitalization for the following reasons: resp distress, atrial arrhythmia Quality Stroke Does the patient have a stroke diagnosis?: No VTE Prior VTE?: No VTE Risk Level:: Medical - moderate - high VTE Device Contraindication: Treatment Not Indicated VTE Drug Contraindication: N/A - Med Ordered
[2025-06-20 20:10] LABS: Glucose, Whole Blood 262 mg/dL (60-115)
[2025-06-20] MEDS: 0.9 % Sodium Chloride Flush 3 ML SYRINGE IVFLUSH (23:10)
[2025-06-21] VITALS (10 sets, daily range): BP systolic 128–160; BP diastolic 64–88; PULSE 77–103; RESP 16–20; TEMP 36.3–36.7; O2SAT 92–99
[2025-06-21 07:21] LABS: Glucose, Whole Blood 260 mg/dL (60-115)
[2025-06-21] MEDS: Ipratropium Bromide 0.5 MG/2.5 ML SOLUTION INHALE ×4 (07:34→20:44)
[2025-06-21] MEDS: buPROPion HCl XL 300 MG TAB.ER.24H PO (08:30)
[2025-06-21] MEDS: dilTIAZem HCL CD 240 MG CAP.ER.DEG PO (08:31)
[2025-06-21] MEDS: 0.9 % Sodium Chloride Flush 3 ML SYRINGE IVFLUSH ×3 (08:32→21:08)
[2025-06-21] MEDS: Milk of Magnesia 30 ML ORAL.SUSP PO (08:33)
[2025-06-21 11:23] LABS: Glucose, Whole Blood 381 mg/dL (60-115)
--- NOTE | 2025-06-21 15:16 | P.PNIM_ITS ---
Subjective Subjective Date of Service: 06/21/25 Interval History: Essentially no change with steroids. Long discussion related to hospice Review of Systems Denies chest pain Admits shortness of breath with minimal exertion Denies nausea vomiting diarrhea Denies fever chills Physical Exam 2 Vital Signs: Vital Signs: Last Vital Signs Temp 98.1 F 06/21/25 15:13 Pulse 103 H 06/21/25 15:13 Resp 18 06/21/25 15:13 BP 129/66 06/21/25 15:13 Pulse Ox 96 06/21/25 15:13 O2 Del Method Nasal Cannula 06/21/25 15:13 O2 Flow Rate 4 06/21/25 15:13 Oxygen Flow Rate 2 06/12/25 10:35 BMI result Body Mass Index 29.4 Const: Other: Awake alert able to speak in short sentences Resp: Other: Diminished throughout with dense expiratory wheezes Cardio: Other: No S4; positive S1-S2; no S3 murmurs rubs or gallops GI: Other: Soft nontender nondistended normoactive bowel sounds Extrem: Other: No edema bilaterally Objective Data Active Medications Acetaminophen (Acetaminophen 325 Mg Tablet) 650 mg PO Q6H PRN PRN Reason: Pain, Mild 1-3,fever,headache Al Hydroxide/Mg Hydroxide (Magnesium Hydrox/Alum Hydrox 30 Ml Oral.Susp) 30 ml PO Q4H PRN PRN Reason: Heartburn Last Admin: 06/18/25 13:37 Dose: 30 ml Documented By: WILTON Apixaban (Apixaban 5 Mg Tablet) 5 mg PO BID [facility] Last Admin: 06/21/25 08:32 Dose: 5 mg Documented By: LUCIANA Atorvastatin Calcium (Atorvastatin Calcium 10 Mg Tablet) 10 mg PO DAILY [facility] Last Admin: 06/21/25 08:31 Dose: 10 mg Documented By: LUCIANA Benzonatate (Benzonatate 100 Mg Capsule) 100 mg PO TID PRN PRN Reason: Cough Last Admin: 06/18/25 14:00 Dose: 100 mg Documented By: WILTON Bupropion HCl (Bupropion Hcl Xl 300 Mg Tab.Er.24h) 300 mg PO DAILY [facility] Last Admin: 06/21/25 08:30 Dose: 300 mg Documented By: LUCIANA Calcium Carbonate (Calcium Carbonate 750 Mg Tab.Chew) 750 mg PO Q4H PRN PRN Reason: Heartburn Ceftriaxone Sodium (Ceftriaxone Sodium 1 Gm Vial) 1 gm IVPUSH Q24H [facility] Last Admin: 06/21/25 12:22 Dose: 1 gm Documented By: LUCIANA Dextrose (Dextrose 50 % 25 Gm/50 Ml Syringe) 25 gm IVPUSH Q15M PRN; Protocol PRN Reason: per Hypoglycemia Standing Ord. Diltiazem HCl (Diltiazem Hcl Cd 240 Mg Cap.Er.Deg) 240 mg PO DAILY [facility]; Protocol Last Admin: 06/21/25 08:31 Dose: 240 mg Documented By: LUCIANA Furosemide (Furosemide 20 Mg Tablet) 20 mg PO BID [facility]; Protocol Last Admin: 06/21/25 08:31 Dose: 20 mg Documented By: LUCIANA Glucose (Glucose Gel 15 Gm Gel..Gram.) 15 gm PO Q15M PRN; Protocol PRN Reason: per Hypoglycemia Standing Ord. Insulin Human Lispro (Insulin Lispro 100 Unit/Ml 3 Ml Vial) 0 unit SUBCUT QIDACHS [facility]; Protocol Last Admin: 06/21/25 12:22 Dose: 10 unit Documented By: LUCIANA Ipratropium Kyle (Ipratropium Kyle 0.5 Mg/2.5 Ml Solution) 0.5 mg INHALE RQ4H WHILE AWAKE [facility] Last Admin: 06/21/25 15:02 Dose: 0.5 mg Documented By: ROMMEL Levalbuterol HCl (Levalbuterol Hcl 1.25 Mg/3 Ml Vial.Neb) 1.25 mg INHALE RQ4H WHILE AWAKE [facility] Last Admin: 06/21/25 15:02 Dose: 1.25 mg Documented By: ROMMEL Levalbuterol HCl (Levalbuterol Hcl 1.25 Mg/3 Ml Vial.Neb) 1.25 mg INHALE Q2H PRN PRN Reason: Shortness of Breath/Wheezing Magnesium Hydroxide (Milk Of Magnesia 30 Ml Oral.Susp) 30 ml PO DAILY PRN PRN Reason: Constipation Last Admin: 06/21/25 08:33 Dose: 30 ml Documented By: LUCIANA Melatonin (Melatonin 3 Mg Tablet) 6 mg PO BEDTIME PRN PRN Reason: Insomnia Methylprednisolone Sodium Succinate (Methylprednisolone Sod Succ 125 Mg/2 Ml Vial) 60 mg IVPUSH Q6H [facility] Last Admin: 06/21/25 14:34 Dose: 60 mg Documented By: LUCIANA Metoprolol Tartrate (Metoprolol Tartrate 5 Mg/5 Ml Vial) 5 mg IVPUSH Q6H PRN; Protocol PRN Reason: Heart Rate >100 Last Admin: 06/20/25 12:34 Dose: 5 mg Documented By: LUCIANA Morphine Sulfate (Morphine Sulfate 4 Mg/Ml Cartridge) 4 mg IVPUSH Q2H PRN; Protocol PRN Reason: Restlessness Last Admin: 06/21/25 12:27 Dose: 4 mg Documented By: LUCIANA Multivitamins/Vitamin C (Multivitamin Tablet) 1 tab PO DAILY [facility] Last Admin: 06/21/25 08:30 Dose: 1 tab Documented By: LUCIANA Ondansetron HCl (Ondansetron Hcl 4 Mg/2 Ml Vial) 4 mg IVPUSH Q4H PRN PRN Reason: Nausea and Vomiting Last Admin: 06/16/25 15:09 Dose: 4 mg Documented By: JAY Oxycodone HCl (Oxycodone Hcl Immed Release 5 Mg Tablet) 10 mg PO TID PRN PRN Reason: Pain, Moderate(Pain Scale 4-6) Last Admin: 06/19/25 00:12 Dose: 10 mg Documented By: CM Pregabalin (Pregabalin 150 Mg Capsule) 150 mg PO DAILY [facility] Last Admin: 06/21/25 08:30 Dose: 150 mg Documented By: LUCIANA Pyridoxine HCl (Pyridoxine Hcl (Vitamin B6) 50 Mg Tablet) 50 mg PO DAILY [facility] Last Admin: 06/21/25 08:31 Dose: 50 mg Documented By: LUCIANA Sodium Chloride (0.9 % Sodium Chloride Flush 3 Ml Syringe) 3 ml IVFLUSH QSHIFT [facility] Last Admin: 06/21/25 14:34 Dose: 3 ml Documented By: LUCIANA Tamsulosin HCl (Tamsulosin Hcl 0.4 Mg Capsule) 0.4 mg PO BEDTIME [facility] Last Admin: 06/20/25 20:05 Dose: 0.4 mg Documented By: KAT Vitamin D (Cholecalciferol (Vitamin D3) 25 Mcg Tablet) 25 mcg PO DAILY [facility] Last Admin: 06/21/25 08:31 Dose: 25 mcg Documented By: LUCIANA Labs 06/17/25 10:31 06/19/25 07:01 Labs: Laboratory Results - last 24 hr 06/20/25 06/20/25 06/21/25 15:51 20:02 07:15 POC Glucose 246 H 262 H 260 H 06/21/25 11:20 POC Glucose 381 H* Assessment and Plan (1) Community acquired pneumonia: Status: Acute (2) Chronic obstructive pulmonary disease, unspecified: Status: Acute Plan 80yo M with hx spontaneous pneumothorax, COPD on 3-4 L of oxygen, HLD, BPH, chronic back pain on fentanyl patch and liquid morphine, arthritis, hx OUD who was home hospice but came in to the hospital and revoked hospice; admitted for sepsis from pneumonia complicated by COPD exacerbation and SVT vs atrial tachycardia 1.Acute/chronic hypoxic respiratory failure/sepsis/ PNA: -CTX/Azithro (10)... DC antibiotics - blood cultures negative.... wean O2 as tolerated 2. COPD exacerbation -increase methylprednisolone to 60 mg q.6.. Minimal relief -prn morphine to improve breathing quality -continued levalbuterol -wean O2 as tolerated 4.Atrial arrhythmias -Cardizem increased with good results -appreciate cardiology input -Breanna VTE ppx: apixaban Long discussion with patient related to hospice. Patient is willing to go to facility at this time. We will discuss with discharge planning Quality Stroke Does the patient have a stroke diagnosis?: No VTE Prior VTE?: No VTE Risk Level:: Medical - moderate - high VTE Device Contraindication: Treatment Not Indicated VTE Drug Contraindication: N/A - Med Ordered
[2025-06-21 16:34] LABS: Glucose, Whole Blood 257 mg/dL (60-115)
[2025-06-21 20:22] LABS: Glucose, Whole Blood 252 mg/dL (60-115)
[2025-06-22] VITALS (12 sets, daily range): BP systolic 129–164; BP diastolic 58–89; PULSE 81–140; RESP 14–20; TEMP 36.2–36.9; O2SAT 84–97
[2025-06-22] MEDS: Ipratropium Bromide 0.5 MG/2.5 ML SOLUTION INHALE ×4 (07:31→19:39)
[2025-06-22 07:47] LABS: Glucose, Whole Blood 257 mg/dL (60-115)
--- NOTE | 2025-06-22 08:20 | P.CDIM_ITS ---
PROVIDER RESPONSE TEXT: To clarify, the appropriate diagnosis supported by the clinical indicators: Hyperkalemia QUERY TEXT: PHYSICIAN'S DOCUMENTATION REQUEST Date of Query: 06/21/2025 06:19 AM EDT Patient Name: Jordy Jenkins Admit Date: 06/12/2025 Dear Oz Domínguez DO, A review of the medical record indicates additional documentation may be needed. Please review below and update the documentation accordingly. Clinical Indicators: LABS: Potassium 5.4 H Based on the above, is there a diagnosis that correlates with these findings? Hyperkalemia Labs indicate a diagnosis of (please specify) Other (explain) Clinically unable to determine (explain) Thank you, Cheryl Carbone, CCS, CDIS Use of terms such as suspected, likely, concern for, or probable (associated with a specific diagnosis that is being evaluated, monitored, or treated as if it exists) are acceptable and can be coded in the inpatient setting, when documented at the time of discharge. Please use your independent medical judgment in providing your response. THIS QUERY IS PART OF THE PERMANENT MEDICAL RECORD
--- NOTE | 2025-06-22 08:20 | P.CDIM_ITS ---
PROVIDER RESPONSE TEXT: To clarify, the appropriate diagnosis supported by the clinical indicators: Paroxysmal atrial fibrillation QUERY TEXT: PHYSICIAN'S DOCUMENTATION REQUEST Date of Query: 06/20/2025 09:07 AM EDT Patient Name: Jordy Jenkins Admit Date: 06/12/2025 Dear Oz Domínguez DO, A review of the medical record indicates additional documentation may be needed. Please review below and update the documentation accordingly. Clinical Indicators: Cardiology note 06/14/25 - He does have prior history of atrial fibrillation for which she is on oral anticoagulation therapy with Eliquis. Progress notes : History Atrial fibrillation - Continue Eliquis. Monitor of chest pain/palpitations, Atrial arrhythmias, short bursts of SVT's, possibly atrial tachycardia per cardiology. If possible, please provide further specificity regarding atrial fibrillation, such as: Paroxysmal atrial fibrillation Persistent atrial fibrillation Long lasting persistent atrial fibrillation Permanent atrial fibrillation Other (explain) Clinically unable to determine (explain) Thank you, Cheryl Carbone, CCS, CDIS Use of terms such as suspected, likely, concern for, or probable (associated with a specific diagnosis that is being evaluated, monitored, or treated as if it exists) are acceptable and can be coded in the inpatient setting, when documented at the time of discharge. Please use your independent medical judgment in providing your response. THIS QUERY IS PART OF THE PERMANENT MEDICAL RECORD
[2025-06-22] MEDS: dilTIAZem HCL CD 240 MG CAP.ER.DEG PO (08:35)
[2025-06-22] MEDS: buPROPion HCl XL 300 MG TAB.ER.24H PO (08:36)
[2025-06-22 11:36] LABS: Glucose, Whole Blood 205 mg/dL (60-115)
[2025-06-22] MEDS: fentaNYL 100 MCG PATCH.TD72 TRANSDERMA (11:49)
[2025-06-22] MEDS: Milk of Magnesia 30 ML ORAL.SUSP PO (11:49)
--- NOTE | 2025-06-22 13:46 | MHC.CM.PN ---
EMR REVIEWED, PT NOW ON 5L O2 NC, PER MD 1-2 MORE DAYS ON IV STEROIDS, CM MET W/PT TO DISCUSS DISPO, PT REPORTS HE PREFERS [facility], REF EXPANDED AND [facility] FOLLOWING, CM WILL CONT TO FOLLOW DC NEEDS.
--- NOTE | 2025-06-22 15:13 | P.PNIM_ITS ---
Subjective Subjective Date of Service: 06/22/25 Interval History: Notes improvement with steroids. Less short of breath with movement Review of Systems Denies chest pain Admits shortness of breath with minimal exertion Denies nausea vomiting diarrhea Denies fever chills Physical Exam 2 Vital Signs: Vital Signs: Last Vital Signs Temp 97.6 F 06/22/25 14:56 Pulse 94 06/22/25 14:56 Resp 20 06/22/25 14:56 BP 158/84 H 06/22/25 14:56 Pulse Ox 92 06/22/25 14:56 O2 Del Method Nasal Cannula 06/22/25 14:56 O2 Flow Rate 3 06/22/25 14:56 Oxygen Flow Rate 2 06/12/25 10:35 BMI result Body Mass Index 29.4 Const: Other: Awake alert able to speak in short sentences Resp: Other: Diminished throughout with dense expiratory wheezes Cardio: Other: No S4; positive S1-S2; no S3 murmurs rubs or gallops GI: Other: Soft nontender nondistended normoactive bowel sounds Extrem: Other: No edema bilaterally Objective Data Active Medications Acetaminophen (Acetaminophen 325 Mg Tablet) 650 mg PO Q6H PRN PRN Reason: Pain, Mild 1-3,fever,headache Al Hydroxide/Mg Hydroxide (Magnesium Hydrox/Alum Hydrox 30 Ml Oral.Susp) 30 ml PO Q4H PRN PRN Reason: Heartburn Last Admin: 06/18/25 13:37 Dose: 30 ml Documented By: WILTON Apixaban (Apixaban 5 Mg Tablet) 5 mg PO BID [facility] Last Admin: 06/22/25 08:35 Dose: 5 mg Documented By: LILLIAN Atorvastatin Calcium (Atorvastatin Calcium 10 Mg Tablet) 10 mg PO DAILY [facility] Last Admin: 06/22/25 08:35 Dose: 10 mg Documented By: LILLIAN Benzonatate (Benzonatate 100 Mg Capsule) 100 mg PO TID PRN PRN Reason: Cough Last Admin: 06/18/25 14:00 Dose: 100 mg Documented By: WILTON Bupropion HCl (Bupropion Hcl Xl 300 Mg Tab.Er.24h) 300 mg PO DAILY [facility] Last Admin: 06/22/25 08:36 Dose: 300 mg Documented By: LILLIAN Calcium Carbonate (Calcium Carbonate 750 Mg Tab.Chew) 750 mg PO Q4H PRN PRN Reason: Heartburn Dextrose (Dextrose 50 % 25 Gm/50 Ml Syringe) 25 gm IVPUSH Q15M PRN; Protocol PRN Reason: per Hypoglycemia Standing Ord. Diltiazem HCl (Diltiazem Hcl Cd 240 Mg Cap.Er.Deg) 240 mg PO DAILY [facility]; Protocol Last Admin: 06/22/25 08:35 Dose: 240 mg Documented By: LILLIAN Fentanyl (Fentanyl 100 Mcg Patch.Td72) 100 mcg TRANSDERMA Q72H [facility] Last Admin: 06/22/25 11:49 Dose: 100 mcg Documented By: LILLIAN Furosemide (Furosemide 20 Mg Tablet) 20 mg PO BID [facility]; Protocol Last Admin: 06/22/25 08:34 Dose: 20 mg Documented By: LILLIAN Glucose (Glucose Gel 15 Gm Gel..Gram.) 15 gm PO Q15M PRN; Protocol PRN Reason: per Hypoglycemia Standing Ord. Insulin Human Lispro (Insulin Lispro 100 Unit/Ml 3 Ml Vial) 0 unit SUBCUT QIDACHS [facility]; Protocol Last Admin: 06/22/25 11:49 Dose: 4 unit Documented By: LILLIAN Ipratropium [place] (Ipratropium [place] 0.5 Mg/2.5 Ml Solution) 0.5 mg INHALE RQ4H WHILE AWAKE [facility] Last Admin: 06/22/25 11:30 Dose: 0.5 mg Documented By: RAJINDER Levalbuterol HCl (Levalbuterol Hcl 1.25 Mg/3 Ml Vial.Neb) 1.25 mg INHALE RQ4H WHILE AWAKE [facility] Last Admin: 06/22/25 11:30 Dose: 1.25 mg Documented By: RAJINDER Levalbuterol HCl (Levalbuterol Hcl 1.25 Mg/3 Ml Vial.Neb) 1.25 mg INHALE Q2H PRN PRN Reason: Shortness of Breath/Wheezing Last Admin: 06/22/25 00:45 Dose: 1.25 mg Documented By: JERALD Magnesium Hydroxide (Milk Of Magnesia 30 Ml Oral.Susp) 30 ml PO DAILY PRN PRN Reason: Constipation Last Admin: 06/22/25 11:49 Dose: 30 ml Documented By: LILLIAN Melatonin (Melatonin 3 Mg Tablet) 6 mg PO BEDTIME PRN PRN Reason: Insomnia Methylprednisolone Sodium Succinate (Methylprednisolone Sod Succ 125 Mg/2 Ml Vial) 60 mg IVPUSH Q6H [facility] Last Admin: 06/22/25 14:52 Dose: 60 mg Documented By: LILLIAN Metoprolol Tartrate (Metoprolol Tartrate 5 Mg/5 Ml Vial) 5 mg IVPUSH Q6H PRN; Protocol PRN Reason: Heart Rate >100 Last Admin: 06/20/25 12:34 Dose: 5 mg Documented By: LUCIANA Morphine Sulfate (Morphine Sulfate 4 Mg/Ml Cartridge) 4 mg IVPUSH Q2H PRN; Protocol PRN Reason: Restlessness Last Admin: 06/22/25 14:11 Dose: 4 mg Documented By: BOBBY Multivitamins/Vitamin C (Multivitamin Tablet) 1 tab PO DAILY [facility] Last Admin: 06/22/25 08:35 Dose: 1 tab Documented By: LILLIAN Ondansetron HCl (Ondansetron Hcl 4 Mg/2 Ml Vial) 4 mg IVPUSH Q4H PRN PRN Reason: Nausea and Vomiting Last Admin: 06/16/25 15:09 Dose: 4 mg Documented By: JAY Pregabalin (Pregabalin 150 Mg Capsule) 150 mg PO DAILY [facility] Last Admin: 06/22/25 08:35 Dose: 150 mg Documented By: LILLIAN Pyridoxine HCl (Pyridoxine Hcl (Vitamin B6) 50 Mg Tablet) 50 mg PO DAILY [facility] Last Admin: 06/22/25 08:35 Dose: 50 mg Documented By: LILLIAN Sodium Chloride (0.9 % Sodium Chloride Flush 3 Ml Syringe) 3 ml IVFLUSH QSHIFT [facility] Last Admin: 06/22/25 08:43 Dose: Not Given Documented By: LILLIAN Non-Admin Reason: Previously Administered Tamsulosin HCl (Tamsulosin Hcl 0.4 Mg Capsule) 0.4 mg PO BEDTIME [facility] Last Admin: 06/21/25 21:07 Dose: 0.4 mg Documented By: NATALI Vitamin D (Cholecalciferol (Vitamin D3) 25 Mcg Tablet) 25 mcg PO DAILY [facility] Last Admin: 06/22/25 08:35 Dose: 25 mcg Documented By: LILLIAN Labs 06/17/25 10:31 06/19/25 07:01 Labs: Laboratory Results - last 24 hr 06/21/25 06/21/25 06/22/25 16:29 20:18 07:42 POC Glucose 257 H 252 H 257 H 06/22/25 11:31 POC Glucose 205 H Assessment and Plan (1) Acute hypoxic respiratory failure: Status: Acute (2) Pneumonia: Status: Acute Plan 80yo M with hx spontaneous pneumothorax, COPD on 3-4 L of oxygen, HLD, BPH, chronic back pain on fentanyl patch and liquid morphine, arthritis, hx OUD who was home hospice but came in to the hospital and revoked hospice; admitted for sepsis from pneumonia complicated by COPD exacerbation and SVT vs atrial tachycardia 1.Acute/chronic hypoxic respiratory failure/sepsis/ PNA: -CTX/Azithro (10)... DC antibiotics - blood cultures negative.... wean O2 as tolerated 2. COPD exacerbation -increase methylprednisolone to 60 mg q.6.. With notable improvement -prn morphine to improve breathing quality -continued levalbuterol -wean O2 as tolerated 4.Atrial arrhythmias -Cardizem increased with good results -appreciate cardiology input -Breanna VTE ppx: apixaban Long discussion with patient related to hospice. Patient is willing to go to facility at this time. We will discuss with discharge planning Quality Stroke Does the patient have a stroke diagnosis?: No VTE Prior VTE?: No VTE Risk Level:: Medical - moderate - high VTE Device Contraindication: Treatment Not Indicated VTE Drug Contraindication: N/A - Med Ordered
[2025-06-22 16:12] LABS: Glucose, Whole Blood 206 mg/dL (60-115)
[2025-06-22 21:25] LABS: Glucose, Whole Blood 239 mg/dL (60-115)
[2025-06-22] MEDS: Throat Lozenge, Medicated LOZENGE 1 LOZENGE MUCOUS MEM (21:32)
[2025-06-22] MEDS: 0.9 % Sodium Chloride Flush 3 ML SYRINGE IVFLUSH (21:33)
[2025-06-23] VITALS (7 sets, daily range): BP systolic 136–188; BP diastolic 64–74; PULSE 89–116; RESP 18–21; TEMP 36.3–36.8; O2SAT 90–99
[2025-06-23 07:33] LABS: Glucose, Whole Blood 261 mg/dL (60-115)
[2025-06-23] MEDS: 0.9 % Sodium Chloride Flush 3 ML SYRINGE IVFLUSH (07:52)
[2025-06-23] MEDS: buPROPion HCl XL 300 MG TAB.ER.24H PO (07:54)
[2025-06-23] MEDS: dilTIAZem HCL CD 240 MG CAP.ER.DEG PO (07:54)
[2025-06-23] MEDS: Ipratropium Bromide 0.5 MG/2.5 ML SOLUTION INHALE ×3 (08:06→15:03)
[2025-06-23] MEDS: Throat Lozenge, Medicated LOZENGE 1 LOZENGE MUCOUS MEM ×3 (10:55→15:05)
[2025-06-23 11:33] LABS: Glucose, Whole Blood 258 mg/dL (60-115)
--- NOTE | 2025-06-23 12:54 | MHC.CM.PN ---
IMM 06/23/25, PT MEDICALLY CLEARED FOR DC TO STR AT [facility], PT WILL LIKELY TRANSITION TO HOSPICE AT SNF, PER LIAISON THEY WILL HELP PT UPGRADE MH FROM [facility] IN IF NEEDED, [facility] FOR TRANSPORT AT 4:30PM.
--- NOTE | 2025-06-23 14:49 | PM.DS ---
DS: Providers Provider Date of Service: 06/23/25 Date of admission: 06/12/25 17:22 Date of discharge: 06/23/25 Primary care physician: Nikita Rivera MD Consults: 06/13/25 16:56 Consult to Cardiology Routine Consulting Provider: [facility] Reason for consultation: EKG changes DS: Diagnosis Discharge Diagnosis (1) Acute hypoxic respiratory failure: Status: Acute (2) Pneumonia: Status: Acute DS: Summary Hospital Course Hospital Course: 80-year-old male with past medical history significant for spontaneous pneumothorax, COPD on 3-4 L of oxygen, HLD, BPH, chronic back pain on fentanyl patch and liquid morphine, arthritis and history of opiate use disorder who presented to the hospital complaining of shortness of breath. Patient states that it began approximately 1 week ago, mentions he has a nurse that comes to his home, and was told to come to the hospital to be treated. On labs with leukocytosis, pro BNP 414, negative flu, CTA with peribronchial thickening in the right lower lobe with infiltrate. Of note, patient is under hospice care, however he mentioned that he is still a full code and wishes to have everything done and go back to hospice care at home. Hospital Course Admitted to telemetry where monitor demonstrated periodic atrial fibrillation with rapid ventricular response. Patient was continued on his Eliquis and switch to Cardizem secondary to possibility of beta pradeep employing same pulmonary care. He received aggressive pulmonary toilet and pulse dose methylprednisolone. He completed a course of ceftriaxone and azithromycin for his pneumonia. His methylprednisolone was increased to 60 mg IV q.6 which brought the most relief during this hospitalization. After a long discussion patient has decided he wishes to be DNR DNI and to be brought onto hospice. Scripts for med will be sent that he will be transferred to SNF Time Attestation Discharge Coordination Time (in mins): 35 Quality: Safe Use of Opioids Does Pt have an Active Cancer Diagnosis on the Problem List?: No Quality: Stroke Does the patient have a stroke diagnosis?: No Physical Exam Vital Signs: Vital Signs: Last Vital Signs Temp 98.2 F 06/23/25 11:24 Pulse 100 06/23/25 11:24 Resp 20 06/23/25 11:24 BP 188/70 H 06/23/25 11:24 Pulse Ox 99 06/23/25 11:24 O2 Del Method Nasal Cannula 06/23/25 11:24 O2 Flow Rate 3 06/23/25 11:24 Oxygen Flow Rate 2 06/12/25 10:35 BMI result Body Mass Index 29.4 Const: Other: Awake alert able to speak in short sentences Resp: Other: Diminished throughout with dense expiratory wheezes Cardio: Other: No S4; positive S1-S2; no S3 murmurs rubs or gallops GI: Other: Soft nontender nondistended normoactive bowel sounds Extrem: Other: No edema bilaterally DS: Data Data Completed and Pending Completed studies during hospitalization [Text1]: Procedures Drainage of Right Pleural Cavity with Drainage Device, Percutaneous Approach (03/28/24) Transfusion of Nonautologous Red Blood Cells into Peripheral Vein, Percutaneous Approach (03/28/24) Labs on day of discharge: Laboratory Results - last 24 hr 06/22/25 06/22/25 06/23/25 16:08 21:22 07:24 POC Glucose 206 H 239 H 261 H 06/23/25 11:26 POC Glucose 258 H Discharge Plan Discharge Anticipated Discharge Date/Time: 06/23/25 14:08 Patient Disposition: Xfer SNF Discharge Diagnosis: Acute hypoxic respiratory failure secondary to pneumonia Referrals: [facility] [Outside] - 1 Day Referral Note: SHORT TERM REHAB Nikita Rivera MD [Primary Care Provider, Internal Medicine] - 1 Week Discharge Medications: New diltiazem HCl 240 mg Capsule,Extended Release 24hr 240 mg PO DAILY Qty: 30 0RF Protocol: Hold for SBP/HR < HOLD for SBP < : 90 HOLD for HR < : 60 fentanyl 100 mcg/hr Patch 72 Hour 100 mcg transdermal Q72H Qty: 10 0RF Rx Instructions: Partial Fill upon patient request. prednisone 10 mg tablet See Rx Instructions .Route .COMPLEX Qty: 45 0RF Rx Instructions: 10 mg orally; 5 tabs p.o. daily x3 days; 4 tabs p.o. daily x3 days; 3 tabs daily x3 days; 2 tabs daily x3 days; 1 tab daily x3 days Continued albuterol sulfate 90 mcg/actuation HFA aerosol inhaler 2 puff INHALATION Q4H PRN (Reason: Shortness Of Breath Or Wheezing) Qty: 1 6RF ipratropium-albuterol 0.5 mg-3 mg(2.5 mg base)/3 mL solution for nebulization 3 ml inhalation QID PRN (Reason: dyspnea) Qty: 180 6RF Trelegy Ellipta 100-62.5-25 mcg blister with device 1 ea PO DAILY Qty: 180 1RF multivitamin Tablet 1 tab PO DAILY cholecalciferol (vitamin D3) 25 mcg (1,000 unit) Tablet 25 mcg PO DAILY metoprolol tartrate 50 mg tablet 50 mg PO DAILY furosemide 20 mg tablet 20 mg PO BID pregabalin 75 mg capsule 150 mg PO DAILY morphine concentrate 100 mg/5 mL (20 mg/mL) solution 10 mg PO Q4H PRN (Reason: Pain (Scale Score 4-6)) Qty: 30 0RF Vyzulta 0.024 % drops 1 drp ophthalmic (eye) BEDTIME Rx Instructions: both eyes Vitamin B-6 50 mg Capsule 50 mg PO DAILY Eliquis 5 mg Tablet 5 mg PO BID Qty: 60 0RF bupropion HCl 150 mg tablet sustained-release 12 hr 150 mg PO BID tamsulosin 0.4 mg capsule 0.4 mg PO BEDTIME atorvastatin 10 mg tablet 10 mg PO DAILY Changed oxycodone 10 mg tablet 10 mg PO BID PRN (Reason: pain) Qty: 60 0RF Discontinued fentanyl 100 mcg/hr patch 72 hour 1 patch topical Q3D Qty: 10 0RF Rx Instructions: APPLY 1 PATCH TO SKIN WITH 12MCG PATCH EVERY 72 HOURS FOR PAIN Discharge Orders: Discharge Order (Routine); Ordered 06/23/25 Ordered By: Oz Domínguez Diet: Advance to usual diet Activity on Discharge: As tolerated Stand Alone Forms: Patient Portal Discharge page Print Language: Czech Care Plan Goals: Discussion with patient he wishes now to be DNR DNI and hospice. Scripts for meds sent with patient Health Concerns: Continue current meds ; changes based on hospice Plan of Treatment: As per receiving facility Assessment: See discharge summary
[2025-06-23 16:16] LABS: Glucose, Whole Blood 272 mg/dL (60-115)
== END 2025-06-23 16:31 | disposition skilled nursing facility (03) | DRG 871 ==
LOC: HO.ED 11:30 → HO.EDOVER 17:35 → HO.IMC 06-13 21:01
PROVIDERS: Family Medicine; Admitting Provider Student in an Organized Health Care Education/Training Program; Emergency Provider Emergency Medicine; PCP Family Medicine; Visit Provider Hospitalist
DX: A41.9 Sepsis, unspecified organism (principal); J18.9 Pneumonia, unspecified organism; J96.21 Acute and chronic respiratory failure with hypoxia; J44.0 Chronic obstructive pulmonary disease with (acute) lower respiratory infection; I47.19 Other supraventricular tachycardia; J44.1 Chronic obstructive pulmonary disease with (acute) exacerbation; M19.90 Unspecified osteoarthritis, unspecified site; M54.9 Dorsalgia, unspecified; Z66 Do not resuscitate; D63.8 Anemia in other chronic diseases classified elsewhere; I35.0 Nonrheumatic aortic (valve) stenosis; I48.0 Paroxysmal atrial fibrillation; E87.5 Hyperkalemia; N40.0 Benign prostatic hyperplasia without lower urinary tract symptoms; G89.29 Other chronic pain; Z20.822 Contact with and (suspected) exposure to COVID-19; Z99.81 Dependence on supplemental oxygen; Z87.891 Personal history of nicotine dependence; Z79.899 Other long term (current) drug therapy
CPT/HCPCS: 36415; 71045; 71275; 80048; 80053; 82550; 82803; 82947; 83605; 83735; 83880; 84484; 85025; 85027; 87040; 87502; 87633; 87635; 93005; 93306; 97110; 97116; 97162; 97166; 97530; 99285; J0616; J0696; J1171; J2270; J2405; J2470; J2919; J7120; Q9957; Q9967

== ENCOUNTER → 2025-06-12 10:35 | Outpatient (BNV) | payer MEDICARE, MEDICAID, SELFPAY | PROVIDERS: Admitting Provider Student in an Organized Health Care Education/Training Program; Emergency Provider Emergency Medicine; Visit Provider Internal Medicine Cardiovascular Disease | DX: R00.0 Tachycardia, unspecified (principal); I49.3 Ventricular premature depolarization | CPT/HCPCS: 93010 ==

== ENCOUNTER → 2025-06-12 11:48 | Outpatient (BNV) | payer MEDICARE, MEDICAID, SELFPAY | PROVIDERS: Emergency Provider Emergency Medicine; Visit Provider Radiology Diagnostic Radiology | DX: R06.00 Dyspnea, unspecified (principal); R05.9 Cough, unspecified | CPT/HCPCS: 71045; 71275 ==

== ENCOUNTER 2025-06-12 17:22 | Outpatient (BNV) | payer MEDICARE, MEDICAID, SELFPAY | END 2025-06-16 14:38 | PROVIDERS: Admitting Provider Student in an Organized Health Care Education/Training Program; Emergency Provider Emergency Medicine; PCP Family Medicine; Visit Provider Internal Medicine Cardiovascular Disease | DX: I49.1 Atrial premature depolarization (principal) | CPT/HCPCS: 93010 ==

== ENCOUNTER 2025-06-12 17:22 | Outpatient (BNV) | payer MEDICARE, MEDICAID, SELFPAY | END 2025-06-15 14:50 | PROVIDERS: Admitting Provider Student in an Organized Health Care Education/Training Program; Emergency Provider Emergency Medicine; PCP Family Medicine; Visit Provider Internal Medicine Cardiovascular Disease | DX: I49.1 Atrial premature depolarization (principal) | CPT/HCPCS: 93010 ==

== ENCOUNTER 2025-06-12 17:22 | Outpatient (BNV) | payer MEDICARE, MEDICAID, SELFPAY | END 2025-06-13 10:13 | PROVIDERS: Admitting Provider Student in an Organized Health Care Education/Training Program; Emergency Provider Emergency Medicine; Visit Provider Internal Medicine Cardiovascular Disease | DX: I49.1 Atrial premature depolarization (principal); I44.0 Atrioventricular block, first degree; R00.0 Tachycardia, unspecified | CPT/HCPCS: 93010 ==

== ENCOUNTER 2025-06-12 17:22 | Outpatient (BNV) | payer MEDICARE, MEDICAID, SELFPAY | END 2025-06-17 10:39 | PROVIDERS: Admitting Provider Student in an Organized Health Care Education/Training Program; Emergency Provider Emergency Medicine; PCP Family Medicine; Visit Provider Radiology Diagnostic Radiology | DX: J44.9 Chronic obstructive pulmonary disease, unspecified (principal) | CPT/HCPCS: 71045 ==

== ENCOUNTER 2025-06-12 17:22 | Outpatient (BNV) | payer MEDICARE, MEDICAID, SELFPAY | END 2025-06-17 12:00 | PROVIDERS: Admitting Provider Student in an Organized Health Care Education/Training Program; Emergency Provider Emergency Medicine; PCP Family Medicine; Visit Provider Internal Medicine Cardiovascular Disease | DX: I35.0 Nonrheumatic aortic (valve) stenosis (principal) | CPT/HCPCS: 93306 ==

== ENCOUNTER 2025-06-12 17:22 | Outpatient (BNV) | payer MEDICARE, MEDICAID, SELFPAY | END 2025-06-15 15:00 | PROVIDERS: Admitting Provider Student in an Organized Health Care Education/Training Program; Emergency Provider Emergency Medicine; PCP Family Medicine; Visit Provider Radiology Diagnostic Radiology | DX: J18.9 Pneumonia, unspecified organism (principal) | CPT/HCPCS: 71045 ==

== ENCOUNTER → 2025-06-12 17:22 | Outpatient (BNV) | payer MEDICARE, MEDICAID, SELFPAY | PROVIDERS: Admitting Provider Student in an Organized Health Care Education/Training Program; Emergency Provider Emergency Medicine; PCP Family Medicine; Visit Provider Internal Medicine Cardiovascular Disease | DX: I49.8 Other specified cardiac arrhythmias (principal) | CPT/HCPCS: 99222 ==

== ENCOUNTER → 2025-06-12 17:22 | Outpatient (BNV) | payer MEDICARE, MEDICAID, SELFPAY | PROVIDERS: Admitting Provider Student in an Organized Health Care Education/Training Program; Emergency Provider Emergency Medicine; Visit Provider Student in an Organized Health Care Education/Training Program | DX: J18.9 Pneumonia, unspecified organism (principal); J44.9 Chronic obstructive pulmonary disease, unspecified | CPT/HCPCS: 99232; 99233 ==